=== PATIENT | male | born 1935 | race Caucasian/White ===

== ENCOUNTER 2019-03-11 11:44 | Observation (INO) | payer OTHER ==
--- NOTE | 2019-03-11 13:06 | RAD REPORT ---
EXAM DESCRIPTION: Jazmyn Single View03/11/2019 12:58 pm CLINICAL HISTORY: Shortness of breath COMPARISON: None FINDINGS: Small to moderate bilateral pleural effusions with bibasilar atelectasis Mild interstitial lung opacities The heart is mildly enlarged. Pacemaker leads are in place. IMPRESSION: Mild CHF
[2019-03-11] MEDS ORDERED: IPRATROPIUM BROM 0.5MG/2.5ML ONE (13:11)
[2019-03-11] MEDS ORDERED: LEVALBUTEROL 1.25 MG/3 ML NEB ONE (13:11)
[2019-03-11 13:22] LABS: Absolute Lymphocytes (CBC) 1.1 K/uL (0.7-4.9); Basophils % 0.8 % (0-1.3); Hematocrit 30.4 % (39.6-49.0); Lymphocytes % 14.8 % (15.3-44.8); MPV 8.3 fL (7.6-11.3); RBC Red Blood Cell Count 3.26 M/uL (4.33-5.43)
--- NOTE | 2019-03-11 13:29 | ER ---
Nurse's Notes [facility] Name: Catrachito Blanco Age: 83 yrs Sex: Male : 1935 Arrival Date: 03/11/2019 Time: 11:46 Bed 7 Private MD: Yanira Jasso Diagnosis: Dyspnea;End stage renal disease-on HD M,W,F;Unspecified combined systolic (congestive) and diastolic (congestive) heart failure;Type 2 diabetes mellitus;Obesity, unspecified Presentation: 03/11 11:53 Presenting complaint: Patient states: Trouble breathing for more than a month, had jl7 dialysis this morning and felt increased work of breathing. Reports feeling better right now than he did when he got out of dialysis 30 minutes ago. Went by Urgent Care but they wouldn't see him. Transition of care: patient was not received from another setting of care. Onset of symptoms was January 2019. Risk Assessment: Do you want to hurt yourself or someone else? Patient reports no desire to harm self or others. Initial Sepsis Screen: Does the patient meet any 2 criteria? RR > 20 per min. No. Patient's initial sepsis screen is negative. Does the patient have a suspected source of infection? No. Patient's initial sepsis screen is negative. Care prior to arrival: None. 11:53 Method Of Arrival: Wheelchair [facility] 11:53 Acuity: CHARU 2 jl7 Triage Assessment: 12:01 General: Appears in no apparent distress. uncomfortable, obese, Behavior is calm, jl7 cooperative, appropriate for age. Pain: Denies pain. Respiratory: Reports shortness of breath on exertion Airway is patent Respiratory effort is even, unlabored, Respiratory pattern is regular, symmetrical, Onset: The symptoms/episode began/occurred at an unknown time. the patient has mild shortness of breath. Historical: - Allergies: 12:01 PENICILLINS; jl7 12:01 Adhesives; jl7 - Home Meds: 12:01 terazosin 10 mg oral cap [Active]; fosrenal [Active]; clopidogrel 75 mg oral tab 1 tab jl7 once daily [Active]; gabapentin 300 mg oral cap [Active]; latanoprost ophthalmic ophthalmic [Active]; pioglitazone 15 mg oral tab 1 tab [Active]; - PMHx: 12:01 Dialysis; Diabetes - NIDDM; ESRD; Hypertension; Depression; renal cell carcinoma 7 - PSHx: 12:01 cardiac stents; nephrectomy; - Immunization history:: Adult Immunizations up to date. - Social history:: Smoking status: Patient/guardian denies using tobacco. - Ebola Screening: : No symptoms or risks identified at this time. - Family history:: not pertinent. Screenin:20 Abuse screen: Denies threats or abuse. Denies injuries from another. Nutritional ph screening: No deficits noted. Tuberculosis screening: No symptoms or risk factors identified. Fall Risk None identified. Assessment: 12:18 General: Appears in no apparent distress. uncomfortable, obese, well groomed, Behavior ph is calm, cooperative, appropriate for age, Denies fever. Pain: Denies pain. Neuro: Level of Consciousness is awake, alert, obeys commands, Oriented to person, place, time, situation. Cardiovascular: Reports fatigue, shortness of breath, Denies chest pain, lightheadedness, nausea, palpitations, vomiting, Capillary refill < 3 seconds in bilateral fingers Patient's skin is warm and dry. Rhythm is Dialysis shunt: in the left bicep, with palpable thrill, with auscultated bruit, with no erythema, with no edema, no bleeding noted. Respiratory: Reports shortness of breath at rest on exertion cough that is productive, Airway is patent Respiratory effort is even, Respiratory pattern is tachypnea. GI: Patient currently denies abdominal pain, diarrhea, nausea, vomiting. Derm: Skin is intact, Skin is pink, warm \T\ dry. Musculoskeletal: Circulation, motion, and sensation intact. Range of motion: intact in all extremities. 13:30 Reassessment: Patient appears in no apparent distress at this time. Patient and/or ph family updated on plan of care and expected duration. Pain level reassessed. Patient is alert, oriented x 3, equal unlabored respirations, skin warm/dry/pink. 15:56 Reassessment: Pt taken for US via stretcher. ph Vital Signs: 12:01 BP 157 / 66; Pulse 75; Resp 19 S; Temp 97.9(O); Pulse Ox 99% on R/A; Pain 0/10; jl7 13:00 BP 147 / 76; Pulse 72; Resp 20; Pulse Ox 98% on R/A; ph 14:00 ph 14:51 BP 151 / 89; Pulse 72; Resp 16; Temp 97.6; Pulse Ox 99% on R/A; ph 14:00 pt in radiology ph ED Course: 11:46 Patient arrived in ED. as 11:48 Yanira Jasso MD is Private Physician. as 11:56 Triage completed. jl7 12:01 Arm band placed on right wrist. jl7 12:06 Marcela Fortune RN is Primary Nurse. ph 12:12 Nestor Santiago MD is Attending Physician. chaitanya 12:20 Patient has correct armband on for positive identification. Placed in gown. Bed in low ph position. Call light in reach. Side rails up X2. playground monitor on. Pulse ox on. NIBP on. Door closed. Noise minimized. Warm blanket given. Head of bed elevated. 13:04 XRAY Chest (1 view) In Process Unspecified. EDMS 13:11 Inserted saline lock: 22 gauge in right antecubital area, using aseptic technique. ms Missed attempt(s): 22 gauge in right forearm. Bleeding controlled, band aid applied, catheter tip intact. 13:11 Initial lab(s) drawn, by ky, sent to lab. First set of blood cultures drawn. ms 13:24 Wang Faust MD is Hospitalizing Provider. chaitanya 13:39 US Extremity Venous W Compression Mikey In Process Unspecified. EDMS 14:43 EKG done, by certified pest control technician. reviewed by Nestor Santiago MD. at1 14:51 No provider procedures requiring assistance completed. Patient admitted, IV remains in ph place. Administered Medications: 13:24 Not Given (Duplicate Order): NS 0.9% 1000 ml IV at 75 ml/hr continuous chaitanya 14:50 Drug: Xopenex 1.25 mg Route: Inhalation; ph 15:00 Follow up: Response: No adverse reaction ph 14:50 Drug: AtroVENT Aerosol 0.5 mg Route: Inhalation; ph 15:00 Follow up: Response: No adverse reaction ph Outcome: 13:28 Decision to Hospitalize by Provider. chaitanya 15:41 Patient left the ED. ph 15:41 Admitted to Tele accompanied by tech, family with patient, via wheelchair, room 403, ph with chart, Report called to ALFREDO Gale 15:41 Condition: stable 15:41 Instructed on the need for admit. Signatures: Dispatcher [employer] EDMS Nestor Santiago MD MD chaitanya Mark, Tiffanie as Sanabria, Raquel ms Yun Cramer, manager agency EKG Tat1 Marcela Fortune, RN RN ph Madeline Goodman RN RN jl7 Corrections: (The following items were deleted from the chart) 13:15 13:14 Inserted saline lock: 22 gauge in right antecubital area, using aseptic ms technique. ms 13:15 13:14 Missed attempt(s): 22 gauge in right forearm. Bleeding controlled, band aid ms applied, catheter tip intact. ms
--- NOTE | 2019-03-11 13:29 | EDPHYS ---
Physician Documentation [facility] [place], [place] Name: Catrachito Blanco Age: 83 yrs Sex: Male : 1935 Arrival Date: 03/11/2019 Time: 11:46 Bed 7 Private MD: Yanira Jasso ED Physician Nestor Santiago HPI: 03/11 12:43 This 83 yrs old Male presents to ER via Wheelchair with complaints of chaitanya Breathing Difficulty, Weakness, Back Pain. 12:43 The patient has shortness of breath at rest, with light activity. Onset: The chaitanya symptoms/episode began/occurred 21 day(s) ago. Duration: The symptoms are continuous, and are steadily getting worse. The patient's shortness of breath has no apparent modifying factors. Associated signs and symptoms: The patient has no apparent associated signs or symptoms. Severity of symptoms: At their worst the symptoms were mild moderate in the emergency department the symptoms are unchanged. The patient has not experienced similar symptoms in the past. Historical: - Allergies: 12:01 PENICILLINS; jl7 12:01 Adhesives; jl7 - Home Meds: 12:01 terazosin 10 mg oral cap [Active]; fosrenal [Active]; clopidogrel 75 mg oral tab 1 tab jl7 once daily [Active]; gabapentin 300 mg oral cap [Active]; latanoprost ophthalmic ophthalmic [Active]; pioglitazone 15 mg oral tab 1 tab [Active]; - PMHx: 12:01 Dialysis; Diabetes - NIDDM; ESRD; Hypertension; Depression; renal cell carcinoma jl7 - PSHx: 12:01 cardiac stents; nephrectomy; jl7 - Immunization history:: Adult Immunizations up to date. - Social history:: Smoking status: Patient/guardian denies using tobacco. - Ebola Screening: : No symptoms or risks identified at this time. - Family history:: not pertinent. ROS: 12:43 Constitutional: Negative for fever, chills, and weight loss, Eyes: Negative for injury, chaitanya pain, redness, and discharge, ENT: Negative for injury, pain, and discharge, Neck: Negative for injury, pain, and swelling, Cardiovascular: Negative for chest pain, palpitations, and edema, Abdomen/GI: Negative for abdominal pain, nausea, vomiting, diarrhea, and constipation, Back: Negative for injury and pain, : Negative for injury, bleeding, discharge, and swelling, MS/Extremity: Negative for injury and deformity, Skin: Negative for injury, rash, and discoloration, Psych: Negative for depression, anxiety, suicide ideation, homicidal ideation, and hallucinations, Allergy/Immunology: Negative for hives, rash, and allergies, Endocrine: Negative for neck swelling, polydipsia, polyuria, polyphagia, and marked weight changes, Hematologic/Lymphatic: Negative for swollen nodes, abnormal bleeding, and unusual bruising. 12:43 Respiratory: Positive for cough, shortness of breath. 12:43 MS/extremity: Positive for pain. Exam: 12:43 Constitutional: This is a well developed, well nourished patient who is awake, alert, chaitanya and in no acute distress. Head/Face: Normocephalic, atraumatic. Eyes: Pupils equal round and reactive to light, extra-ocular motions intact. Lids and lashes normal. Conjunctiva and sclera are non-icteric and not injected. Cornea within normal limits. Periorbital areas with no swelling, redness, or edema. ENT: Nares patent. No nasal discharge, no septal abnormalities noted. Tympanic membranes are normal and external auditory canals are clear. Oropharynx with no redness, swelling, or masses, exudates, or evidence of obstruction, uvula midline. Mucous membranes moist. Neck: Trachea midline, no thyromegaly or masses palpated, and no cervical lymphadenopathy. Supple, full range of motion without nuchal rigidity, or vertebral point tenderness. No Meningismus. Chest/axilla: Normal chest wall appearance and motion. Nontender with no deformity. No lesions are appreciated. Cardiovascular: Regular rate and rhythm with a normal S1 and S2. No gallops, murmurs, or rubs. Normal PMI, no JVD. No pulse deficits. Respiratory: Lungs have equal breath sounds bilaterally, clear to auscultation and percussion. No rales, rhonchi or wheezes noted. No increased work of breathing, no retractions or nasal flaring. Abdomen/GI: Soft, non-tender, with normal bowel sounds. No distension or tympany. No guarding or rebound. No evidence of tenderness throughout. Back: No spinal tenderness. No costovertebral tenderness. Full range of motion. Male : Normal genitalia with no discharge or lesions. MS/ Extremity: Pulses equal, no cyanosis. Neurovascular intact. Full, normal range of motion. Neuro: Awake and alert, GCS 15, oriented to person, place, time, and situation. Cranial nerves II-XII grossly intact. Motor strength 5/5 in all extremities. Sensory grossly intact. Cerebellar exam normal. Normal gait. Psych: Awake, alert, with orientation to person, place and time. Behavior, mood, and affect are within normal limits. 12:43 Skin: Appearance: Color: pale. Vital Signs: 12:01 BP 157 / 66; Pulse 75; Resp 19 S; Temp 97.9(O); Pulse Ox 99% on R/A; Pain 0/10; jl7 13:00 BP 147 / 76; Pulse 72; Resp 20; Pulse Ox 98% on R/A; ph 14:00 ph 14:51 BP 151 / 89; Pulse 72; Resp 16; Temp 97.6; Pulse Ox 99% on R/A; ph 14:00 pt in radiology ph MDM: 12:12 Patient medically screened. [facility] 12:47 Data reviewed: vital signs, nurses notes, lab test result(s), EKG, radiologic studies, chaitanya doppler, plain films. 12 12:43 Order name: Basic Metabolic Panel [facility] 03/11 12:43 Order name: CBC with Diff [facility] 03/11 12:43 Order name: LFT's [facility] 03/11 12:43 Order name: Magnesium [facility] 03/11 12:43 Order name: NT PRO-BNP [facility] 03/11 12:43 Order name: PT-INR [facility] 03/11 12:43 Order name: Troponin (emerg Dept Use Only) [facility] 03/11 12:43 Order name: XRAY Chest (1 view); Complete Time: 13:23 [facility] 03/11 12:43 Order name: EKG; Complete Time: 12:44 [facility] 03/11 12:43 Order name: Blood Culture Adult (2) [facility] 03/11 12:43 Order name: US Extremity Venous W Compression Mikey [facility] 03/11 12:43 Order name: Cardiac monitoring; Complete Time: 12:54 [facility] 03/11 12:43 Order name: EKG - Nurse/Tech; Complete Time: 14:51 [facility] 03/11 12:43 Order name: IV Saline Lock; Complete Time: 13:14 [facility] 03/11 12:43 Order name: Labs collected and sent; Complete Time: 13:14 [facility] 03/11 12:43 Order name: O2 Per Protocol; Complete Time: 12:54 [facility] 03/11 12:43 Order name: O2 Sat Monitoring; Complete Time: 12:54 [facility] 03/11 14:13 Order name: Diet Ada 1800 Josh; Complete Time: 14:14 ms 03/11 14:20 Order name: CONS Physician Consult EDMS Administered Medications: 13:24 Not Given (Duplicate Order): NS 0.9% 1000 ml IV at 75 ml/hr continuous chaitanya 14:50 Drug: Xopenex 1.25 mg Route: Inhalation; ph 15:00 Follow up: Response: No adverse reaction ph 14:50 Drug: AtroVENT Aerosol 0.5 mg Route: Inhalation; ph 15:00 Follow up: Response: No adverse reaction ph Disposition: 03/11/19 13:28 Hospitalization ordered by Wang Faust for Inpatient Admission. Preliminary diagnosis are Dyspnea, End stage renal disease - on HD M,W,F, Unspecified combined systolic (congestive) and diastolic (congestive) heart failure, Type 2 diabetes mellitus, Obesity, unspecified. - Bed requested for Telemetry/MedSurg (Inpatient). - Status is Inpatient Admission. ph - Condition is Stable. - Problem is new. - Symptoms have improved. UTI on Admission? No Signatures: Dispatcher [employer] EDNestor Long MD MD cha Smirch, Shelby RN RN ss Marcela Fortune RN RN ph Madeline Goodman RN RN jl7 Corrections: (The following items were deleted from the chart) 14:42 13:28 Hospitalization Ordered by Wang Faust MD for Inpatient Admission. Preliminary ss diagnosis is Dyspnea; End stage renal disease - on HD M,W,F; Unspecified combined systolic (congestive) and diastolic (congestive) heart failure; Type 2 diabetes mellitus; Obesity, unspecified. Bed requested for Telemetry/MedSurg (Inpatient). Status is Inpatient Admission. Condition is Stable. Problem is new. Symptoms have improved. UTI on Admission? No. chaitanya 15:41 14:42 03/11/2019 13:28 Hospitalization Ordered by Wang Faust MD for Inpatient ph Admission. Preliminary diagnosis is Dyspnea; End stage renal disease - on HD M,W,F; Unspecified combined systolic (congestive) and diastolic (congestive) heart failure; Type 2 diabetes mellitus; Obesity, unspecified. Bed requested for Telemetry/MedSurg (Inpatient). Status is Inpatient Admission. Condition is Stable. Problem is new. Symptoms have improved. UTI on Admission? No. ss
[2019-03-11 13:37] LABS: Protime INR 1.04
--- NOTE | 2019-03-11 13:42 | RAD REPORT ---
EXAM DESCRIPTION: USExtrem Venous W Compress Bil03/11/2019 1:37 pm CLINICAL HISTORY: Leg pain COMPARISON: none FINDINGS: The common femoral, superficial femoral, popliteal and posterior tibial veins bilaterally are compressible and demonstrate augmentation. Doppler demonstrates good flow. 2 centimeter right Wu's cyst IMPRESSION: No evidence of deep venous thrombosis involving either lower extremity. 2 centimeter right Wu's cyst
[2019-03-11 13:56] LABS: Albumin 3.2 g/dL (3.4-5.0); Bilirubin Direct 0.2 mg/dL (0-0.2); Bilirubin Total 0.5 mg/dL (0.2-1.0); Magnesium 2.2 mg/dL (1.8-2.4); Potassium 3.4 mmol/L (3.5-5.1); Protein, Total 7.2 g/dL (6.4-8.2); Troponin (Emerg Dept Use Only) 0.15 ng/mL (0.0-0.045)
--- NOTE | 2019-03-11 15:31 | EKG ---
Test Date: 2019-03-11 Test Time: 14:32:17 Product Manufacturing Professional: ELYSSA MEASUREMENT RESULTS: Intervals: Rate: 72 SC: QRSD: 204 QT: 510 QTc: 558 [place]: P: SC: QRS: -45 T: 117 INTERPRETIVE STATEMENTS: Ventricular-paced rhythm Abnormal ECG Compared to ECG 08/01/1991 14:41:00 Sinus rhythm no longer present Left ventricular hypertrophy no longer present Electronically Signed On 03-11-19 15:30:49 [employer]IV[employer] INVESTIGATOR by Jack Sterling
[2019-03-11] MEDS ORDERED: ONDANSETRON 4 MG/2 ML VIAL IV PRN (15:48)
[2019-03-11] MEDS ORDERED: D50W 25 GM/50 ML SYRINGE/VIAL IV PRN (15:48)
[2019-03-11] MEDS ORDERED: IPRATROPIUM BROM 0.5MG/2.5ML NEB PRN (15:48)
[2019-03-11] MEDS ORDERED: GLUCAGON 1 MG/VIAL IM PRN (15:48)
[2019-03-11] MEDS ORDERED: ALBUTEROL 2.5 MG/3 ML NEB SOL NEB PRN (15:48)
[2019-03-11] MEDS: INSULIN -REGULAR HUMAN 50 UNIT/0.5 ML ML SQ SCH ×2 (15:55→21:00)
[2019-03-11] MEDS ORDERED: FUROSEMIDE 20 MG/ 2ML VIAL IV ONE (16:00)
[2019-03-11 18:31] LABS: Urine Appearance CLEAR; Urine Bilirubin NEGATIVE (NEG); Urine Blood TRACE (NEG); Urine Color YELLOW; Urine Glucose NEGATIVE (NEG); Urine Protein 2+ (NEG); Urine Urobilinogen 0.2 mg/dL (0.2-1.0)
[2019-03-11 18:33] LABS: Urine Microscopic Reflex ORDER UMIC
[2019-03-11 18:46] LABS: Urine Bacteria 20-50 /HPF (NONE SEEN); Urine Culture Reflex Order REFLEXED; Urine Yeast PRESENT (NONE SEEN)
[2019-03-11] MEDS ORDERED: GABAPENTIN 300 MG CAP PO SCH (21:00)
[2019-03-11] MEDS: TERAZOSIN HCL 5 MG CAP PO SCH (21:40)
[2019-03-11] MEDS: HYDROCODONE/APAP 7.5/325 MG TAB PO PRN (23:50)
[2019-03-12 06:10] VITALS: BMI 5124.0
[2019-03-12 06:42] LABS: Absolute Lymphocytes (CBC) 1.2 K/uL (0.7-4.9); Basophils % 0.7 % (0-1.3); Hematocrit 29.4 % (39.6-49.0); Lymphocytes % 15.6 % (15.3-44.8); MPV 8.6 fL (7.6-11.3); RBC Red Blood Cell Count 3.13 M/uL (4.33-5.43)
[2019-03-12 07:21] LABS: Potassium 3.5 mmol/L (3.5-5.1)
[2019-03-12] MEDS: INSULIN -REGULAR HUMAN 50 UNIT/0.5 ML ML SQ SCH ×3 (07:30→16:30)
[2019-03-12] MEDS ORDERED: FLUTICASONE 50MCG NASAL SPRAY NAS SCH (09:00)
[2019-03-12] MEDS ORDERED: CLOPIDOGREL 75 MG TABLET PO SCH (09:00)
[2019-03-12] MEDS: HYDROCODONE/APAP 7.5/325 MG TAB PO PRN (09:25)
[2019-03-12] MEDS: TERAZOSIN HCL 5 MG CAP PO SCH (09:26)
--- NOTE | 2019-03-12 11:34 | P.PN ---
Subjective Date of Service: 03/12/19 Chief Complaint: Shortness of breath Subjective: Improving (Patient is doing much better he was admitted with acute shortness of breath patient is on dialysis and is compliant had 1 dialysis yesterday feels much better today no fever chills) Review of Systems Unremarkable Physical Examination - Vital Signs Temperature: 97.8 F Blood Pressure: 130/58 Pulse: 68 Respirations: 18 Pulse Ox (%): 92 - Physical Exam General: Alert, In no apparent distress, Oriented x3 Respiratory: Clear to auscultation bilaterally, Crackles/rales Cardiovascular: No edema, Normal S1 S2 - Studies Laboratory Data (last 24 hrs) 03/11/19 13:11: PT 12.2, INR 1.04 03/11/19 13:11: WBC 7.4, Hgb 10.5 L, Hct 30.4 L, Plt Count 164 03/11/19 13:11: Sodium 137, Potassium 3.4 L, BUN 23 H, Creatinine 2.66 H, Glucose 141 H, Magnesium 2.2, Total Bilirubin 0.5, AST 13 L, ALT 14, Alkaline Phosphatase 91 Assessment & Plan - Problems (Diagnosis) (1) Volume overload Current Visit: Yes Status: Acute Plan: Patient is 83 years of age with a history of chronic renal failure on dialysis admitted with acute shortness of breath he is doing much better since dialysis will plan to perform 1 more dialysis and discharge today as clinically stable vital signs are all satisfactory saturation satisfactory cultures are pending chest x-ray shows some interstitial changes consistent with volume overload Qualifiers: Hypervolemia type: unspecified Qualified Code(s): E87.70 - Fluid overload, unspecified Discharge Plan: Home
[2019-03-12 12:59] VITALS: TEMP 97.7
[2019-03-12 16:10] VITALS: O2SAT 92
[2019-03-12 16:46] VITALS: BP 126/67
--- NOTE | 2019-03-13 01:11 | CON ---
Date of Consultation: 03/12/2019 Reason For Consultation: Elevated BUN and creatinine. History Of Present Illness: This is a pleasant 83-year-old gentleman, well known to me from dialysis with significant past medical history of hypertension; end-stage renal disease, on hemodialysis, Thu, Thursday, Thursday. Patient apparently had dialyzed Thursday, after dialysis started having shortn ess of breath, who was brought to the emergency room, found to have over volume. Patient was given a nother session of dialysis, managed to remove 2.5 L and we took the patient for another session of di alysis today goaling for 3 L. The patient's blood pressure has been stable. The patient's dry weigh t in the dialysis unit 122, currently predialysis 119. The patient is feeling much better. Past Medical History: Include 1.Hypertension. 2.Congestive heart failure. 3.End-stage renal disease. Allergies: TO ADHESIVE TAPE, PENICILLIN. Social History: Denies smoking, denies drinking, denies drug abuse. Past Surgical History: AV fistula creation. Review of Systems: Head and Neck: No red eye. No ear pain. GI: No nausea, no vomiting. : No polyuria, no dysuria, no hematuria. Vasc Tech: Not applicable. Respiratory: Has shortness of breath. Cardiovascular: Has orthopnea. Endocrine: No polydipsia. Skin: No rash. Neuro: Has neuropathy. Musculoskeletal: Low back pain. Medications: Home medications include terazosin, Actos, hydrocodone, gabapentin, and Plavix. Curren t medications in the hospital include breathing treatment, Plavix, gabapentin, terazosin. Physical Examination: Vital Signs: When I saw the patient, blood pressure 138/77, pulse of 88. Chest: Crackles bilateral base. Heart: S1, S2, systolic murmur. Abdomen: Soft, nontender. Extremities: Trace edema. Neurological: Oriented x3, no focal. Laboratory Data: WBC 7.4, H and H 10.1/29.4, platelets 165. Sodium 140, potassium 3.5, bicarb 30, B UN 23, creatinine 3, calcium 9.2. BNP 52,000. Assessment And Plan: 1.End-stage renal disease with over volume. We will challenge the patient again. We will adjust th e patient dry weight as outpatient. 2.Hypokalemia. Patient is going to be dialyzed on high potassium bath. 3.Congestive heart failure, diastolic dysfunction. Patient is going to be challenge. 4.Hypertension. We will utilize the blood pressure for ultrafiltration. 5.Anemia of chronic kidney disease. Continue ARIC as outpatient. Patient cleared from the renal melonie [facility] for discharge planning. CORBY Voice ID: [id number] Report ID: [id number]
--- NOTE | 2019-03-13 02:06 | P.HP ---
Certification for Inpatient Patient admitted to: Observation With expected LOS: <2 Midnights Patient will require the following post-hospital care: None Practitioner: I am a practitioner with admitting privileges, knowledge of patient current condition, hospital course, and medical plan of care. Services: Services provided to patient in accordance with Admission requirements found in Title 42 Section 412.3 of the Code of Federal Regulations Patient History Date of Service: 03/13/19 Primary Care Provider: PCP Reason for admission: Shortness of breath History of Present Illness: Patient came to ED today after having increase in Shortness. History of ESRD and CHF. Stated that he has had on/off shortness of breath for about 1 month but has become much worse recently. Today could no longer tolerate it. Patient was seen and evaluated in the ED. Found to have increase vascular changes on CXR with elevated troponin Allergies adhesive tape Allergy (Verified 03/11/19 15:45) Hives/Rash Penicillins Allergy (Verified 03/11/19 15:45) Itching/Hives/Rash Home medications list reviewed: Yes Home Medications: Clopidogrel Bisulfate [Plavix*] 75 mg PO DAILY 03/11/19 Gabapentin [Neurontin*] 300 mg PO DAILY 03/11/19 Hydrocodone Bit/Acetaminophen [Hydrocodon-Acetaminoph 7.5-325] 1 tab PO Q8HP PRN 03/11/19 Latanoprost/Pf [Latanoprost 0.005% Eye Drop] 1 drop EACH EYE BEDTIME 03/11/19 Pioglitazone [Actos*] 1 tab PO SEECOM 03/11/19 Terazosin HCl 10 mg PO BID 03/11/19 - Past Medical/Surgical History Has patient received pneumonia vaccine in the past: Yes Diabetic: Yes -: Arthritis -: Anemia -: Diabetes-NIDDM -: HTN -: HD-MWF -: Depression -: Sleep Apnes- CPAP@home -: OR in 2012 with 2 stents -: Pacemaker -: Left Nephrectomy -: Cardiac stents x2 -: ORIF of the Right akkle -: cardiac cath x2 -: Dialysis Graft placement in the Left upper arm - Family History Mother -: Heart disease, Hypertension, Diabetes, Stroke, Other (see notes) Notes: OR Father -: Heart disease, Hypertension - Social History Smoking Status: Never smoker Alcohol use: No CD- Drugs: No Caffeine use: Yes Place of Residence: Home Review of Systems General: Unremarkable Eyes: Unremarkable ENT: Unremarkable Respiratory: Shortness of Breath, SOB with Excertion Cardiovascular: Unremarkable Gastrointestinal: Unremarkable Musculoskeletal: Unremarkable Integumentary: Unremarkable Neurological: Unremarkable Lymphatics: Unremarkable Physical Examination - Vital Signs Temperature: 97.7 F Blood Pressure: 126/67 Pulse: 64 Respirations: 16 Pulse Ox (%): 93 - Physical Exam General: Alert, In no apparent distress, Oriented x3 HEENT: Normocephalic, PERRLA, Mucous membr. moist/pink, EOMI Neck: Supple, 2+ carotid pulse no bruit, JVD not distended, No Thyromegaly, No LAD Respiratory: Crackles/rales (bilateral lower lobes ) Cardiovascular: Normal pulses, Regular rate/rhythm, Normal S1 S2, Edema, Systolic murmur Gastrointestinal: Normal bowel sounds, Soft and benign, Non-distended, No tenderness Musculoskeletal: No clubbing, No swelling, No contractures, No erythema, No tenderness, No warmth Integumentary: No rashes, No breakdown, No significant lesion, No tenderness/ swelling, No erythema, No warmth, No cyanosis Neurological: Normal speech, Normal strength at 5/5 x4 extr, Normal tone, Sensation intact, Cranial nerves 3-12 intact, Normal reflexes 2+, Normal affect Assessment and Plan - Problems (Diagnosis) (1) Congestive heart failure (CHF) Status: Acute (2) End stage renal disease Status: Acute (3) Elevated troponin Status: Acute - Plan Patient will be admitted for observation and kept on oxygen. Nephrology was consulted and agreed that since patient can still urinate, that we will diurese him one time and see how he does. Patient will be monitored. HD will be completed if needed. Otherwise will check chemistries and troponin throughout the night. If stable and feeling better will d/c home tomorrow Discharge Plan: Home Plan to discharge in: 24 Hours - Advance Directives Does patient have a Living Will: No Does patient have a Durable POA for Healthcare: No - Code Status/Comfort Care Code Status Assessed: No Critical Care: No Time Spent Managing Pts Care (In Minutes): 30
--- NOTE | 2019-03-13 15:55 | P.DS ---
Admission Date: 03/11/19 Discharge Date: 03/13/19 Primary Care Provider: PCP Disposition: ROUTINE DISCHARGE Discharge Condition: GOOD Reason for Admission: Shortness of breath - Problems (1) Volume overload Status: Acute Qualifiers: Hypervolemia type: unspecified Qualified Code(s): E87.70 - Fluid overload, unspecified Brief History of Present Illness: Patient is 83 years of age dialysis patient is admitted with acute shortness of breath volume overload Hospital Course: Patient was dialyzed and felt well in fact he underwent dialysis x2 was stable at the time of discharge he was alert oriented responsive cooperative vital signs all stable chest clear cardiovascular system os sounds normal see my progress note saturation satisfactory patient was discharge nephrology consultation chest x-ray consistent with volume overload Vital Signs/Physical Exam: Temp Pulse Resp BP Pulse Ox 97.7 F 64 16 126/67 93 03/13/19 02:06 03/13/19 02:06 03/13/19 02:06 03/13/19 02:06 03/13/19 02:06 Laboratory Data at Discharge: WBC 7.4 K/uL (4.3-10.9) 03/12/19 05:54 Hgb 10.1 g/dL (13.6-17.9) L 03/12/19 05:54 Hct 29.4 % (39.6-49.0) L 03/12/19 05:54 Plt Count 165 K/uL (152-406) 03/12/19 05:54 PT 12.2 SECONDS (9.5-12.5) 03/11/19 13:11 INR 1.04 03/11/19 13:11 Sodium 140 mmol/L (136-145) 03/12/19 05:54 Potassium 3.5 mmol/L (3.5-5.1) 03/12/19 05:54 BUN 23 mg/dL (7-18) H 03/12/19 05:54 Creatinine 3.09 mg/dL (0.55-1.3) H 03/12/19 05:54 Glucose 142 mg/dL (74-106) H 03/12/19 05:54 Magnesium 2.2 mg/dL (1.8-2.4) 03/11/19 13:11 Total Bilirubin 0.5 mg/dL (0.2-1.0) 03/11/19 13:11 AST 13 U/L (15-37) L 03/11/19 13:11 ALT 14 U/L (12-78) 03/11/19 13:11 Alkaline Phosphatase 91 U/L (45-117) 03/11/19 13:11 Troponin I 0.12 ng/mL (0.0-0.045) H 03/11/19 20:58 Home Medications: Clopidogrel Bisulfate [Plavix*] 75 mg PO DAILY 03/11/19 Gabapentin [Neurontin*] 300 mg PO DAILY 03/11/19 Hydrocodone Bit/Acetaminophen [Hydrocodon-Acetaminoph 7.5-325] 1 tab PO Q8HP PRN 03/11/19 Latanoprost/Pf [Latanoprost 0.005% Eye Drop] 1 drop EACH EYE BEDTIME 03/11/19 Pioglitazone [Actos*] 1 tab PO SEECOM 03/11/19 Terazosin HCl 10 mg PO BID 03/11/19 Diet: Renal Activity: Ad eric Followup: Jen Davenport MD [ACTIVE - CAN ADMIT] - 1-2 Weeks (customs investigator- call to schedule an appointment ) Aris Ash MD [ACTIVE - CAN ADMIT] - 1 Week (Primary care physician- call to schedule an appointment )
[2019-03-16 06:00] LABS: HBsAG Nonreactive (Nonreactive)
== END 2019-03-12 17:30 | disposition home or self-care (01) ==
LOC: ER 11:44 → ERHOLD 14:17 → 4TH 15:25
PROVIDERS: ADMIT Family Medicine; ATTEND Family Medicine
DX: I13.2 Hypertensive heart and chronic kidney disease with heart failure and with stage 5 chronic kidney disease, or end stage renal disease (principal); E11.22 Type 2 diabetes mellitus with diabetic chronic kidney disease; N18.6 End stage renal disease; I50.32 Chronic diastolic (congestive) heart failure; E87.70 Fluid overload, unspecified; E87.6 Hypokalemia; D63.1 Anemia in chronic kidney disease; I25.2 Old myocardial infarction; Z95.0 Presence of cardiac pacemaker; Z95.5 Presence of coronary angioplasty implant and graft; Z88.0 Allergy status to penicillin; E86.1 Hypovolemia
CPT/HCPCS: 93005; 87040 ×2; 87088; 85025 ×2; 87086; 80048 ×2; 36415; 83735; 85610; 82947 ×5; 80076; 84484 ×3; 86317; 83880 ×2; 87340; 86706; 71045; 90935 ×2; 93970; 94640; 99285; J1940; G0378 ×3; 81003; 81015

== ENCOUNTER 2019-12-06 08:25 | Day surgery (SDC) | payer OTHER ==
--- OUTSIDE RECORDS SUMMARY | 2019-12-06 08:29 | XMS REPORT | Continuity of Care Document ---
:1935 Author Organization [facility] t Address [address] [place] [address] Care Team Providers Name Role Phone Jose CHRISTIAN, Jeffrey Primary Care Physician Jdaa CHRISTIAN, T. Attending Clinician Boby CHRISTIAN V. Attending Clinician Edmund ZAYAS Attending Clinician Amado CHRISTIAN, Jake Attending Clinician Jeffrey Garcia MD Attending Clinician Jose A CAIN Attending Clinician Linda Soler MD Attending Clinician Alex Attending Clinician Unavailable Reyes CHRISTIAN, Tomasa Garcia Attending Clinician [phone] Rupert CHRISTIAN, PFredrick Attending Clinician Jose Anderson MD Attending Clinician JADA Admitting Clinician Unavailable RUPERT Admitting Clinician Unavailable Payers Payer Name Policy Type Policy Number Effective Date Expiration Source Date HUMANA xxxxxxxxx 2017 [place] MEDICAREHUMANA 00:00:00 [facility] MEDICARE PPO/PFFS/ERS [id number] Problems Condition Condition Condition Status Onset Resolution Last Treating Co mments Source Name Details Category Date Date Treatment Clinician Date 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 [facility] renal renal 00:00: st disease) disease) 00 on on dialysis dialysis 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, occlusion, 00:00: st left left 00 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 2-12 [facility] dialysis dialysis 00:00: st AV graft AV graft 00 AV fistula AV fistula Disease Active 2019 [place] infection infection 6-07 Meth alyson 00:00: st 00 Arterioven Arterioven Disease Active [place] ous ous 8-20 [facility] fistula fistula 00:00: st occlusion occlusion 00 Allergies, Adverse Reactions, Alerts Allergy Allergy Status Severity Reaction(s) Onset Inactive Treating Comm ents Source Name Type Date Date Clinician Latex Propensi Active Hives Blisterin [place] ty to 2-12 g [facility] adverse 00:00: st reaction 00 s to drug Adhesive Propensi Active Itching, blisters [place] Tape-Nellie ty to Other (See 6-17 Meth alyson icones adverse Comments) 00:00: st reaction 00 s to drug Penicill Propensi Active Itching, [place] ins ty to Swelling 8-20 [facility] adverse 00:00: st reaction 00 s to drug Family History Family Member Diagnosis Comments Start Date Stop Date Source Natural father Depression [facility]odist Natural father Heart disease [place] [facility] Natural father Hy[facility] Natural mother Diabetes [facility] Natural mother Heart attack [place] [facility] Natural mother Heart disease [place] [facility] Natural mother [facility]ension [facility] Social History Social Habit Start Date Stop Date Quantity Comments Source Sex Assigned At [facility] ethodist Alcohol intake 2019-09-09 2019-09-09 [facility] 00:00:00 non-drinker of alcohol (finding) Smoking Status Start Date Stop Date Source Never smoker [facility] Medications Ordered Filled Start Stop Current Ordering Indication Dosage Frequency Signature Comments Components Source Medication Medication Date Date Medication? Clinician (SIG) Name Name terazosin Yes 10mg Q.5D Take 10 mg [place] (HYTRIN) 10 6-11 by mouth 2 Me thodi MG capsule 17:30: (two) st 43 times a day. gabapentin 2020-0 Yes 300mg QD Take 300 [place] (NEURONTIN) 6-11 mg by [facility] 300 mg 17:30: mouth st capsule 43 daily. lanthanum 2020-0 Yes 1000mg Q.[id number] Chew 1,000 [place] (FOSRENOL) 6-11 [id number] mg 3 Met hodi 1000 MG 17:30: 3D (three) st chewable 43 times a tablet day with meals. pioglitazon 2020-0 Yes 15mg QD Take 15 mg [place] e (ACTOS) 6-11 by mouth Method i 15 MG 17:30: daily. st tablet 43 latanoprost 2020-0 Yes 1[drp] QD Administer [place] (XALATAN) 6-11 1 drop to Metho di 0.005 % 17:30: both eyes st ophthalmic 43 nightly. solution clopidogreL 2020-0 Yes 75mg QD Take 75 mg [place] (PLAVIX) 75 6-11 by mouth Meth alyson mg tablet 17:30: daily. st 43 albuterol 2020-0 Yes 2{puff} Q6H Inhale 2 [place] (PROAIR 6-11 puffs Methodi HFA) 90 17:30: every 6 st mcg/actuati 43 (six) on inhaler hours as needed for wheezing. polyethylen 2020-0 Yes 17g QD Take 17 g [place] e glycol 6-11 by mouth Method[facility] (MIRALAX) 17:30: daily. st 17 gram 43 packet ascorbic 2020-0 Yes 500mg QD Take 500 [place] acid, 6-11 mg by [facility] vitamin C, 17:30: mouth st (VITAMIN C) 43 daily. 500 MG tablet acetaminoph 2020-0 Yes 500mg Q.[id number] Take 500 [place] en 6-11 [id number] mg by [facility] (TYLENOL) 17:30: 3D mouth 3 st 500 MG 43 (three) tablet times a day as needed for mild pain (FOR BACK AND HIP PAIN). Saccharomyc 2020-0 Yes 250mg QD Take 250 [place] es 6-11 mg by Methodi boulardii 17:30: mouth st (FLORASTOR) 43 daily. 250 mg capsule diphenhydrA 2020-0 Yes 25mg Q6H Take 25 mg [facility] MINE 09-07 by mouth Method[facility] (BenadryL) 17:30: every 6 st 25 mg 43 (six) capsule hours as needed for itching. cholecalcif 2019-0 Yes QD Take by Kadie guy xenia, 09-07 mouth Methodi vitamin D3, 17:30: daily. st (VITAMIN D3 43 ORAL) acetaminoph 2019- 2020- No acute pain 1{tbl} Q4H Take 1 [place] en-codeine 09-0718 tablet by Met ac (TYLENOL 00:00: 23:[address] WITH 00 :00 every 4 CODEINE #3) (four) 300-30 mg hours as per tablet needed for moderate pain for up to 7 days .acute pain. traMADol-ac 2020- No acute pain 1{tbl} QD Take 1 [place] etaminophen 08-31 tablet by Me chilel (ULTRACET) 12:17: 00:[address] 37.5-325 mg 06 :00 nightly per tablet .acute pain. calcium 2019- 2020- No 1{tbl} Q.5D Take 1 [place] citrate-vit 08-31 tablet by Me chilel fried D3 12:15: 00:[address] (CITRACAL+D 31 :00 (two) ) 315-200 times a mg-unit per day. tablet vancomycin 2019-0 2020- No 1000mg Q.07540444 Infuse [place] 1,000 mg in 4-12 07-29 [id number] 1,000 mg Methodi sodium 00:00: 23:[address] chloride 00 :00 venous 0.9% 250 mL catheter 3 IVPB (three) times a week for 14 days. aspirin 2019-0 2020- No 81mg QD Take 81 mg Kadie guy (ECOTRIN) 05-1112 by mouth Metho di 81 MG 17:08: 00:[address] enteric 32 :00 coated tablet Vital Signs Vital Name Observation Time Observation Value Comments Source Systolic blood 2019-09-08 17:15:00 135 mm[Hg] [place] [facility] pressure Diastolic blood 2019-09-08 17:15:00 65 mm[Hg] [place] [facility] pressure Heart rate 2019-09-08 17:15:00 67 /min [place] [facility] Respiratory rate 2019-09-08 17:15:00 16 /min David Duarte Oxygen saturation in 2019-09-08 17:15:00 96 /min Dell Duarte Arterial blood by Pulse oximetry Body temperature 2019-09-08 16:30:00 36.22 Marilee David Duarte Body height 2019-09-08 09:59:00 182.9 cm Dell Duarte Body weight 2019-09-08 09:59:00 112.038 kg Dell Duarte BMI 2019-09-08 09:59:00 33.50 kg/m2 Dell Duarte Procedures Procedure Date / Time Performing Clinician Source Performed [place] AN ELECTIVE 2019-09-09 12:10:59 Hina Landis SUPRAGLOTTIC AIRWAY POC GLUCOSE 2019-09-08 15:19:00 Omega Elias OR FL < 1 HOUR 2019-09-08 15:05:17 Omega Elias POC PANEL 4 2019-09-08 10:11:00 Omega Elias COMPREHENSIVE METABOLIC 2019-09-08 10:07:00 Omega Elias PANEL ESTIMATED GFR 2019-09-08 10:07:00 Omega Elias XR CHEST 2 VW 2019-09-01 14:20:51 Dell Fischer ECG PRE/POST OP 2019-09-01 13:14:13 Dell Fischer COVID-19 QUALITATIVE PCR 2019-09-01 12:41:00 Kadie Fischer HC COMPLETE BLD COUNT 2019-09-01 12:41:00 Omega Elias W/AUTO DIFF TYPE AND SCREEN 2019-09-01 12:41:00 Omega Elias PARTIAL THROMBOPLASTIN 2019-09-01 12:41:00 Omega Elias TIME (PTT) PROTHROMBIN TIME WITH INR 2019-09-01 12:41:00 Omega Elias HEMOGLOBIN A1C 2019-09-01 12:41:00 Dell Fischer HEMODIALYSIS 2019-07-12 13:25:48 IssacJen Dell Garcia odist HEPATITIS B SURFACE 2019-07-12 10:00:00 IssacJen Dell Duarte ANTIGEN HEPATITIS B SURFACE AB, 2019-07-12 10:00:00 Issac Jen David Duarte QUANTITATIVE HEMODIALYSIS 2019-07-12 09:13:48 NimaJen avelar [place] Meth odist POC GLUCOSE 2019-07-11 17:22:00 Omega Elias POC GLUCOSE 2019-07-11 15:29:00 Omega Elias SURGICAL PATHOLOGY REQUEST 2019-07-11 15:29:00 Omega Elias ANAEROBIC CULTURE 2019-07-11 15:15:00 Omega Elias AEROBIC CULTURE 2019-07-11 15:15:00 Omega Elias GRAM STAIN 2019-07-11 15:15:00 Omega Elias OR FL < 1 HOUR 2019-07-11 15:08:01 Omega Elias AEROBIC CULTURE 2019-07-11 15:08:00 Omega Elias GRAM STAIN 2019-07-11 15:08:00 Omega Elias OK AN ELECTIVE 2019-07-11 14:16:22 Rosette Naranjo ENDOTRACHEAL AIRWAY POC PANEL 4 2019-07-11 11:11:00 Omega Elias ECG 12-LEAD 2019-07-11 11:04:36 Dell Fischer TYPE AND SCREEN 2019-07-11 11:00:00 Dell Fischer BASIC METABOLIC PANEL 2019-07-11 11:00:00 Xander Fischer HC COMPLETE BLD COUNT 2019-07-11 11:00:00 Xander Fischer [facility] W/AUTO DIFF Kalpesh Joseph PROTHROMBIN TIME WITH INR 2019-07-11 11:00:00 Milton Fischer PARTIAL THROMBOPLASTIN 2019-07-11 11:00:00 Stefany Fischer [facility] TIME (PTT) Kalpesh Joseph ESTIMATED GFR 2019-07-11 11:00:00 Dell Fischer odpaz Joseph POC GLUCOSE 2019-05-13 12:03:00 Orlin Emery ethodist HEPATITIS B SURFACE 2019-05-13 08:10:00 Jen Davenport [facility] ANTIGEN HEPATITIS B SURFACE AB, 2019-05-13 08:10:00 Jen Davenport [facility] QUANTITATIVE HC COMPLETE BLD COUNT 2019-05-13 06:00:00 Ryan Soler [facility] W/AUTO DIFF Linda ANTI XA, UNFRACTIONATED 2019-05-13 06:00:00 Ryan Soler Catholic Ryder-Hsi HEMODIALYSIS 2019-05-12 22:26:09 Jen Davenport Meth odist POC GLUCOSE 2019-05-12 19:43:00 Orlin Emery ethodist OR FL < 1 HOUR 2019-05-12 18:51:47 Ryan Soler Meth odist Ryder-Hsi POC GLUCOSE 2019-05-12 18:01:00 Orlin Emery ethodist OK AN EMERGENT 2019-05-12 14:53:11 Rosette Naranjo Meth odist SUPRAGLOTTIC AIRWAY POC GLUCOSE 2019-05-12 08:10:00 Orlin Emery ethodist TROPONIN 2019-05-12 06:00:00 Hima Chambers Meth odist Tomasa Garcia HC COMPLETE BLD COUNT 2019-05-12 06:00:00 Cindy Milligan [facility] W/AUTO DIFF Tajdin BASIC METABOLIC PANEL 2019-05-12 06:00:00 Cindy Milligan Tajdin MAGNESIUM LEVEL 2019-05-12 06:00:[address] thodist Tajdin ANTI XA, UNFRACTIONATED 2019-05-12 06:00:00 Hima Chambers Sangeekenyatta Joylizbeth ESTIMATED GFR 2019-05-12 06:00:[address] thodist Tajdin TROPONIN 2019-05-12 02:00:00 Orlin Emery ethodist ANTI XA, UNFRACTIONATED 2019-05-12 00:30:00 Hima Chambers TYPE AND SCREEN 2019-05-12 00:30:00 Orlin Emery ethodist ECG 12-LEAD 2019-05-12 00:14:04 Ryan Soler-Hsi POC GLUCOSE 2019-05-11 21:36:00 Orlin Emery ethodist TROPONIN 2019-05-11 19:25:00 Hima Chambers ECG 12-LEAD 2019-05-11 16:15:59 Hima Chambers XR CHEST 1 VW PORTABLE 2019-05-11 16:14:06 Hima Chambers HC COMPLETE BLD COUNT 2019-05-11 15:50:00 Hima Chambers W/AUTO DIFF Tomasa Garcia COMPREHENSIVE METABOLIC 2019-05-11 15:50:00 Hima Chambers PANEL Tomasa Garcia CREATINE KINASE, TOTAL 2019-05-11 15:50:00 Hima Chambers Catholic (CPK) Sangmarium Garcia TROPONIN 2019-05-11 15:50:00 Hima Chambers B NATRIURETIC PEPTIDE 2019-05-11 15:50:00 Hima Chambers PROTHROMBIN TIME WITH INR 2019-05-11 15:50:00 ReyesHima corbin PARTIAL THROMBOPLASTIN 2019-05-11 15:50:00 Hima Chambers Catholic TIME (PTT) Tomasa Garcia ESTIMATED GFR 2019-05-11 15:50:00 Hima Chambers odist Tomasa Garcia ANTI XA, UNFRACTIONATED 2019-05-11 15:50:00 Hima Chambers OK CRITICAL CARE, E/M 2019-05-11 15:47:17 Hima Chambers Catholic 30-74 MINUTES Tomasa Garcia ECG ED PRELIMINARY 2019-05-11 15:47:17 Hima Chambers ethodist INTERPRETATION Tomasa Garcia Plan of Care Planned Activity Planned Date Details Comments Source Future Scheduled 2019-12-29 INFLUENZA VACCINE Xander delgado Catholic Test 00:00:00 [code = INFLUENZA VACCINE] Future Scheduled 2002 65+ PNEUMOCOCCAL [place] [facility] Test 00:00:00 VACCINE (1 of 2 - PCV13) [code = 65+ PNEUMOCOCCAL VACCINE (1 of 2 - PCV13)] Future Scheduled 1987-10-01 SHINGLES VACCINES (#1) [place] [facility] Test 00:00:00 [code = SHINGLES VACCINES (#1)] Future Scheduled 1947-10-01 DIABETIC FOOT EXAM Stefany mitchell [facility] Test 00:00:00 [code = DIABETIC FOOT EXAM] Future Scheduled 1935 DIABETIC RETINAL EYE Kadie malena [facility] Test 00:00:00 EXAM [code = DIABETIC RETINAL EYE EXAM] Encounters Start End Encounter Admission Attending Care Care Encounter Source Date/Time Date/Time Type Type Clinicians Facility Department ID 2019-09-08 2019-09-08 [id number] [place] 00:00:00 00:00:[address] IMRAN [address] 2019-09-01 2019-09-01 Outpatient JADA [facility] [id number] [place] 00:00:00 00:00:00 IMRAN [address] 2019-09-01 2019-09-01 Outpatient WOFREDDIEIECHOWS [facility] [id number] [place] 00:00:00 00:00:00 KI, 485 Method i KALPESH 2019-07-11 2019-07-12 Inpatient JESUS GARCIA [facility] [id number] [place] 00:00:00 00:00:[address] 2019-06-02 2019-06-02 Outpatient RYDER [facility] [id number] [place] 00:00:00 00:00:00 RYAN [place] [facility] 2019-05-11 2019-05-13 Inpatient RUPERT [facility] [id number] [place] 00:00:00 00:00:00 ORLIN [address] Results Test Description Test Time Test Comments Results Result Sourc e Comments Airway 2019-08-29 Hina Landis V., Kadie guy 2 09/09/2019 12:11 Ct thodist 12:10:59 PMAirwayDate/Time: 09/08/2019 1:40 PMPerformed by: Hina Landis V., MDAuthorized by: Hina Landis MD Location: ORUrgency: ElectiveDifficult Airway: No Anesthesiologist: Hina Landis V., MDResident/UTILITY MECHANIC/AA: Piedad Uribe CRNAPerformed by: resident/UTILITY MECHANIC/AAPreoxy genated with 100% O2: Yes C-spine Precautions Maintained Throughout: Yes Mask Ventilation: Not attemptedFinal Airway Type: Supraglottic airwayFinal LMA: I-GelLMA Size: 5Number of Attempts at Approach: 1 POC glucose 2019-09-08 15:21:41 Test Item Value Reference Range Interpretation Comme [facility] POC glucose (test code = 41266-2) 157 mg/dL 65-99 H Oncology Technician Name: Boubacar Alvarez ID: [id number] Lab Interpretation (test code = Abnormal 70304-5) [place] [facility] [place] < 1 [id number] 15:18:06Hm Interface, Radiology Results 09/08/2019 3:21 PM CDTEXAMINATION: OR FL < 1 HOURCLIN ICAL HISTORY: None provided.IMPRESSION:1. Fluoroscopy was provided in the operating. I was not present during the procedure.2. Please refer to the operative report for findings.3. Total Dose: 7 fluoroscopic images. 88.1 seconds of fluoroscopy time.[facility] MethodistComprehensive metabolic panel 2019-09-08 10:50:56 Test Item Value Reference Range Interpretation Comments Sodium (test code = 2951-2) 135 135- 148 mEq/L Potassium (test code = 2823-3) 3.8 3.5- 5.0 mEq/L Chloride (test code = 2075-0) 98 98- 112 mEq/L CO2 (test code = 2027-9) 25 24- 31 mEq/L Anion gap (test code = 46777-9) 12@ANIO 7- 15 mEq/L BUN (test code = 3094-0) 44 mg/dL 8-23 H Creatinine (test code = 2160-0) 5.12 mg/dL 0.7-1.2 H Glucose (test code = 2345-7) 133 mg/dL 65-99 H Calcium (test code = 65275-6) 9.9 mg/dL 8.8-10.2 Protein (test code = 2885-2) 7.3 g/dL 6.3-8.3 Albumin (test code = 1751-7) 3.5 g/dL 3.5-5 A/G ratio (test code = 1759-0) 0.9 0.7-3.8 Alkaline phosphatase (test code = 85 U/L 40-129 6768-6) AST (test code = 1920-8) 16 U/L 10-50 ALT (test code = 1742-6) <5 5-50 A Total bilirubin (test code = 0.3 mg/dL 0.2-1.2 1974-04) Lab Interpretation (test code = Abnormal 87955-8) [place] MethodistEstimated [id number] 10:50:56 Test Item Value Reference Range Interpretation Comments Estimated GFR (test 10 mL/min/1.73 m2 A Bradford gunn Units code = 5488) InterpretationG 1 >=90 Deidre l or highG2 60-89 Mildly decrease dG3a 45-59 Mil dly to moderately decr lnjzcX2d 30-44 Moderately to s everely decreasedG4 15-29 Severe ly decreasedG5 <15 Kidney chinamy lureThe eGFR was calcul ated using the Chron ic Kidney Disease Epidemiology Collaboration ( CKD-EPI) equation. Interpretation is based on recommendati ons of the National dney [facility]-Kidn ey Disease Outcome s Quality Initiat reginald (NKF-KDOQI) pub lished in 2013. Lab Interpretation Abnormal (test code = 64826-8) [facility] panel [id number] 10:14:02 Test Item Value Reference Range Interpretation Comments POC sodium (test code = 135 mmol/L 335-405 2717-0) POC potassium (test 3.8 mmol/L 3.5-5 code = 6298-4) POC hematocrit (test 32 % 41-51 L code = 4544-3) POC glucose (test code 127 mg/dL 65-99 H Opera tor Name: = 2339-0) Joaquin Yang ID : [id number] POC hemoglobin (test 10.9 g/dL 14-18 L code = 718-7) Lab Interpretation Abnormal (test code = 12047-5) Dell DuarteCOVID-19 qualitative [id number] 01:09:13 Test Item Value Reference Range Interpretation Comments Interpretation (test Negative results do code = 6317736) not preclude 2019-nCoV infection and should not be used as the sole basis for treatment or other patient management decisions. Negative results must be combined with clinical observations, patient history, and epidemiological information. COVID-19 qualitative Not-Detected Not-Detected PCR result (test code = 58079-6) COVID-19 qualitative See link below for C ase Number: PCR (test code = PDF Lab Report [id number]) Dell MethodistType and [id number] 14:57:00 Test Item Value Reference Range Interpretation Comments ABO grouping (test code = 883-9) O Rh type (test code = 81742-4) POS Antibody screen (gel) (test code = NEG 890-4) Dell MethodpazECG Pre/Post [id number] 14:30:21 Test Item Value Reference Range Interpretation Comments Ventricular rate (test 76 code = 253) Atrial rate (test code 76 = 255) OK interval (test code 180 = 266) QRSD interval (test 206 code = 260) QT interval (test code 494 = 264) QTC interval (test 555 code = 265) P axis 1 (test code = 57 267) QRS axis 1 (test code -26 = 268) T wave axis (test code 129 = 270) EKG impression (test Electronic ventricular code = 273) pacemaker-In automated comparison with ECG of 11-JUL-2019 11:04,-Previous ECG has undetermined rhythm, needs review- Dell DuarteXR Chest 2 [id number] 14:22:54Hm Interface, Radiology Results Incoming - 09/01/2019 2:26 PM CDTEXAMINATION: XR CHEST 2 VWCLINICAL HISTORY: Z01.818 Encounter for other preprocedural examination, preopCOMPARISON: 05/11/2019 IMPRESSION:Left jugular dialysis catheter is present extending to SVC. Right subclavian pacer remains in place. There is mild cardiomegaly. There is moderate left pleural effusion, which is increased from prior study. There is associated basilar volume loss. Mild blunting of right costophrenic angle suggesting trace right pleural effusion also present. There is no pneumothorax. Bones are demineralized. [facility]-[id number] MethodistHemoglobin [id number] 14:07:53 Test Item Value Reference Range Interpretation Comments Hemoglobin A1C (test 5.4 % 4-5.6 HbA1c c utoffs for code = 67063-3) diagnosing d iabetes:4.0% - 5.6% = normal 5.7% - 6.4% = increase d risk for diabetes (prediabetes)9> =6.5% = wjnutyzp5Yspnc for glycemic contro l (ADA 2016)< 7.0% Ta rget for non anoop lts with diabetes. More or less stringent targe ts may be appropriate for individual jr ents. <7.5% Target for Children and ad olescents with type 1 cathie betes. Dell WilkesistPartial thromboplastin time, [id number] 14:02:44 Test Item Value Reference Range Interpretation Comments PTT (test code = 29.6 23.0- 36.0 sec PTT thera peutic range for 3173-2) unfractionated heparin is61.0-112.0 se conds which corresponds to Anti-Xa0.3-0.7 U/ml. Dell DuarteProthrombin time with [id number] 14:02:36 Test Item Value Reference Range Interpretation Comments Prothrombin time (test 13.3 11.5- 14.5 sec code = 5902-2) INR (test code = 1.0 The Interna tional 38588-1) Normalized Rati o (INR) is a therapeutic m onitoring tool for patien ts who are stable on oral anticoagulant t herapy. An INR of 2.0-3.0 is suggested for d eep vein thrombosis/pulm onary embolism. Dell MethodistCBC with platelet and [id number] 13:54:14 Test Item Value Reference Range Interpretation Comments WBC (test code = 72470-3) 8.0 4.5- 11.0 k/uL RBC (test code = 88180-8) 3.50 m/uL 4.4-6 L HGB (test code = 718-7) 10.9 g/dL 14-18 L HCT (test code = 4544-3) 34.5 % 41-51 L MCV (test code = 787-2) 98.6 fL 82-100 MCH (test code = 785-6) 31.1 pg 27-34 MCHC (test code = 786-4) 31.6 g/dL 31-37 RDW - SD (test code = 42678-9) 49.9 fL 37-55 MPV (test code = 27464-3) 9.6 fL 6.9-11 Platelet count (test code = 191 K/uL 150-400 53592-5) Nucleated RBC (test code = 15383-5) 0.00 /100 WBC Neutrophils (test code = 97152-9) 59.6 % 39-69 Lymphocytes (test code = 14185-5) 24.9 % 25-45 L Monocytes (test code = 06361-0) 9.0 % 0-10 Eosinophils (test code = 42197-9) 5.4 % 0-5 H Basophils (test code = 56411-5) 0.8 % 0-1 Immature granulocytes (test code = 0.3 % 0-1 35148-9) Lab Interpretation (test code = Abnormal 46779-3) Dell MethodistAnaerobic [id number] 13:18:32 Test Item Value Reference Range Interpretation Comments Anaerobic No anaerobic Specimen culture isolate organisms InformationS pecimen (test code = isolated. Source: TissueS pecimen 552) Site: Arm: LEFT ARM FISTULA PUS SWA B FOR AEROBIC,ANAEROB IC,GRAM STAIN [place] MethodistAerobic [id number] 20:47:24 Test Item Value Reference Range Interpretation Comments Aerobic culture No growth Specimen isolate (test after 3 days. InformationSp ecimen code = 498) Source: TissueS pecimen Site: Arm: LEFT ARM FISTULA PUS SWA B FOR AEROBIC,ANAEROB IC,GRAM STAIN [place] MethodistGram [id number] 20:47:24Gram stain isolateOccasional WBC'sNo organisms seen Comment: Specimen InformationSpecimen Source: Tis sueSpecimen Site: Arm: LEFT ARM FISTULA PUS SWAB FOR AEROBIC,ANAEROBIC,GRAM STAIN [facility] MethodistHepatitis B surface Ab, [id number] 18:23:57 Test Item Value Reference Range Interpretation Comments Hepatitis B surface <3.10 IU/L The anti -HBs is less than Ab (test code = 10 IU/L and is therefore 5193-8) negative. There is no evidence of rec overy from hepatitis B inf ection or evidence of ant ibody response to HBV vaccination.An anti-HBs result greater than or equal to 10 IU/ L implies immunity. For post-vaccinatio n antibody testing guideli kristen for the general public refer to MMWR February 282004/Vol. 54(No. 16);1-23 , and for healthcare work ers refer to MMWR February 282012/Vol. 62(No. 10);-19 .Reference Interval: anti- HBs 9.99 IU/L or less .. ..... Rvwjqrrf63.00 I U/L or greater .... PositiveResults greater than 1,000.00 I U/L are reported as gre ater than 1,000.00 IU/L. This assay should not be u sed for blood donor scr eening, associated re-e ntry protocols, or f or screening Human Cell, Tis sues and Cellular and Ti ssue-Based Products (HCT/P ).Performed by ANUSHA hicks,[address] [place] [address] twq .[employer] , Pasquale Christopher MD, Lab. Director Shar[facility] MethodistSurgical pathology [id number] 14:37:08 Test Item Value Reference Range Interpretation Comments Case number (test code = [id number]) Surgical pathology See link below for report (test code = PDF Lab Report 2255) Result status (test code This is Final Report = [id number]) for [id number] Shar[facility] MethodistHepatitis B surface [id number] 14:28:37 Test Item Value Reference Range Interpretation Comments Hepatitis B surface Ab (test Non-reactive Non-reactive code = 64333-2) [place] MethodistHepatitis B surface [id number] 11:13:37 Test Item Value Reference Range Interpretation Comments Hepatitis B surface Ag (test Non-reactive Non-reactive code = 5195-3) [facility] [id number] 14:16:22PaRosette sagastume CRNA 07/11/2019 2:17 PMAirwayDate/Time: 07/11/2019 1:57 PMPerformed by: Rosette Naranjo CRNAAuthorized by: Kalpesh Fischer MD Location: ORUrgency: ElectiveDifficult Airway: Yes Anesthesiologist: Kalpesh Fischer MDPerformed by: anesthesiologistPreoxygenated with 100% O2: Yes C-spine Precautions Maintained Throughout: Yes Mask Ventilation: Not attemptedFinal Airway Type: Endotracheal airwayFinal Endotracheal Airway: ETTTechnique Used: Direct laryngoscopyDevices/Methods Used in Placement: Intubating styletInsertion Site: OralBlade Type: MillerLaryngoscope Blade/Videolaryngoscope Blade Size: 2ETT Size (mm): 8.0Measured from: LipsETT to Lips (cm): 23Placement Verified by: CO2 detection and direct visualization Modified RSI: Yes Number of Attempts at Approach: 1[facility] metabolic [id number] 12:07:29 Test Item Value Reference Range Interpretation Comments Sodium (test code = 2951-2) 144 135- 148 mEq/L Potassium (test code = 2823-3) 4.0 3.5- 5.0 mEq/L Chloride (test code = 2075-0) 105 98- 112 mEq/L CO2 (test code = 2028-9) 25 24- 31 mEq/L Anion gap (test code = 41597-6) 14@ANIO 7- 15 mEq/L BUN (test code = 3094-0) 94 mg/dL 8-23 H Creatinine (test code = 2160-0) 10.04 mg/dL 0.7-1.2 H Glucose (test code = 2345-7) 155 mg/dL 65-99 H Calcium (test code = 53102-5) 11.2 mg/dL 8.8-10.2 H Lab Interpretation (test code = Abnormal 55731-9) [facility] MethodistECG 12 [id number] 11:52:23 Test Item Value Reference Range Interpretation Comments Ventricular rate (test 69 code = 253) Atrial rate (test code 69 = 255) OK interval (test code 220 = 266) QRSD interval (test 186 code = 260) QT interval (test code 480 = 264) QTC interval (test code 514 = 265) P axis 1 (test code = 61 267) QRS axis 1 (test code = -31 268) T wave axis (test code 125 = 270) EKG impression (test Electronic demand code = 273) pacing with 1st degree AV block-Left axis deviation-In automated comparison with ECG of 12-MAY-2019 00:14,-No significant change was found- [facility] MethodistAnti Xa, [id number] 06:49:10 Test Item Value Reference Range Interpretation Comments Anti Xa, unfractionated <0.10 U/mL Ther apeutic Range: (test code = 3274-8) 0.30 - 0.70 U/mL Dell [id number] 14:53:11PateRosette france CRNA 05/12/2019 2:54 PMAirwayDate/Time: 05/12/2019 2:46 PMPerformed by: Rosette Naranjo CRNAAuthorized by: Cristi Anderson MD Location: ORUrgency: EmergentDifficult Airway:No Anesthesiologist: Cristi Anderson, MDResident/UTILITY MECHANIC/AA: Rosette Naranjo CRNAPerformed by: resident/UTILITY MECHANIC/AAConsent Cannot be Obtained Due to Urgency: Yes Verbal Consent Obtained: Yes Written Consent Obtained: Yes Consent Given By: Patient and spouseRisks and Benefits were Discussed: Yes Patient Identity Confirmed by: Verbally with patient and arm bandPreoxygenated with 100% O2: Yes C-spine Precautions Maintained Throughout: Yes Mask Ventilation: Not attemptedFinal Airway Type:Supraglottic airwayFinal LMA: I-GelLMA Size: 5Number of Attempts at Approach: 1[facility] MethodistMagnesium [id number] 07:22:35 Test Item Value Reference Range Interpretation Comments Magnesium (test code = 07181-1) 2.5 mg/dL 1.6-2.4 H Lab Interpretation (test code = Abnormal 70429-2) Dell DuarteClvvvdnqaStdtrstl2626-10-65 06:53:30 Test Item Value Reference Range Interpretation Comments Troponin (test code = 0.126 ng/mL 0-0.04 H In pat ients 00249-3) suspected of waggoner ving a myocardial infarction, purvi ng with all other appropriate cli nical measures and ac tions including ECG a nd other diagnosti cs as appropriate, me asure Ultra TnI at 0 hrs and at 3 hrs.Myocardial infarction VERY LIKELYThe 0 hr TnI level is > 0.10 ng/mL ----- ----- ----- --Ihsan cardial infarct ion LIKELYThe 0 hr TnI level is > 0.04 ng/mL and 3 hr level is increased or decreased by at least 0.020 ng/ mL ----- ----- ----- Ihsan cardi al infarction V ABDIRASHID UNLIKELYBokenyatta e 0 hr and 3 hr TnI levels <= 0.04 ng/mL(within no rmal limits) OR 0 hr is > 0.04 ng/mL and 3 hr is increased OR decreased by le ss than 0.020 ng/m L Lab Interpretation Abnormal (test code = 60081-5) Dell DuarteB natriuretic [id number] 16:45:35 Test Item Value Reference Range Interpretation Comments BNP (test code = 35079-0) 732 pg/mL 0-100 H Lab Interpretation (test code = Abnormal 11423-7) Dell DuarteCreatine kinase, total (CPK)2019-05-11 16:38:27 Test Item Value Reference Range Interpretation Comments Creatine kinase (test code = 2157-6) 46 U/L 39-308 [place] MethodistXR Chest 1 Vw [id number] 16:15:44Hm Interface, Radiology Results 05/11/2019 4:18 PM CSTEXAMINATION: XR CHEST 1 VW PORTABLECLINICAL HISTORY: missed dialysisCOMPARISON: 09/17/2018IMPRESSION:Heart size appears prominent although this may be accentuated given portable technique. A right subclavian pacemaking device is stable.A small left-sided pleural effusion is present. Bibasilar atelectasis is noted. There is no pulmonary edema. There is no significant right pleural effusion. There is no pneumothorax.There are degenerative changes within the thoracic spine.[facility] [place] CITYL-[id number] MethodistPOST [facility] [place] [place] Interpretation - Not an [id number] 15:47:17 Test Item Value Reference Range Interpretation Comments LAKE (test code = LAKE) Hima Chambers MD 05/17/2019 1:03 [facility] ED Preliminary Interpretation - Not an OrderPerformed by: Hima Chambers MDAuthorized by: Hima Chambers MD ECG reviewed by ED Physician in the absence of a synchro assembler: yes Interpretation: Interpretation: abnormal Rate: ECG rate: 82 ECG rate assessment: normal Rhythm: Rhythm: paced Ectopy: Ectopy: none QRS: QRS axis: Normal QRS intervals: WideST segments: ST segments: Non-specificT waves: T waves: non-specific Lab Interpretation Abnormal (test code = 87650-4) Dell WilkesistCRITICAL [id number] 15:47:17Hima Chambers MD 05/17/2019 1:03 AMCritical CarePerformed by: Hima Chambers MDAuthorized by: Hima Chambers MD Critical care provider statement: Critical care time (minutes): 37 Critical care time was exclusive of: Separately billable procedures and treating other patients Critical care was necessary to treat or prevent imminent or life-threatening deterioration of the following conditions: Arterial occlusion, anticoagulation, discussion with vascular surgeon. Critical care was time spent personally by me on the following activities:Development of treatment plan with patient or surrogate, evaluation of patient's response to treatment, examination of patient, obtaining history from patient or surrogate, ordering and performing treatments and interventions, ordering and review of laboratory studies, pulse oximetry, re-evaluation ofpatient's condition, discussions with consultants, ordering and review of radiographic studies and review of old chartsDell Duarte
--- OUTSIDE RECORDS SUMMARY | 2019-12-06 08:29 | XMS REPORT | Clinical Summary ---
:1935 Author Organization [facility] Address [address] [place] [address] Care Team Providers Name Role Phone Wang Garcia MD Primary Care Provider Allergies Active Allergy Reactions Severity Noted Date Comments Adhesive Tape-Silicones Itching, Other (See Comments) Medium 09/13/2018 blisters Latex Hives Medium 05/11/2019 Blistering Penicillins Itching, Swelling High 11/16/2017 Medications Medication Sig Dispensed Refills Start End Date Status Date terazosin (HYTRIN) Take 10 mg by 0 Active 10 MG capsule mouth 2 (two) times a day. gabapentin Take 300 mg by 0 Acti ve (NEURONTIN) 300 mg mouth daily. capsule lanthanum (FOSRENOL) Chew 1,000 mg 0 Active 1000 MG chewable 3 (three) tablet times a day with meals. pioglitazone (ACTOS) Take 15 mg by 0 Active 15 MG tablet mouth daily. latanoprost Administer 1 0 Activ e (XALATAN) 0.005 % drop to both ophthalmic solution eyes nightly. clopidogreL (PLAVIX) Take 75 mg by 0 Active 75 mg tablet mouth daily. albuterol (PROAIR Inhale 2 puffs 0 Active HFA) 90 every 6 (six) mcg/actuation hours as inhaler needed for wheezing. polyethylene glycol Take 17 g by 0 Active (MIRALAX) 17 gram mouth daily. packet ascorbic acid, Take 500 mg by 0 Active vitamin C, (VITAMIN mouth daily. C) 500 MG tablet acetaminophen Take 500 mg by 0 A ctive (TYLENOL) 500 MG mouth 3 tablet (three) times a day as needed for mild pain (FOR BACK AND HIP PAIN). Saccharomyces Take 250 mg by 0 A ctive boulardii mouth daily. (FLORASTOR) 250 mg capsule diphenhydrAMINE Take 25 mg by 0 Active (BenadryL) 25 mg mouth every 6 capsule (six) hours as needed for itching. cholecalciferol, Take by mouth 0 Active vitamin D3, (VITAMIN daily. D3 ORAL) aspirin (ECOTRIN) 81 Take 81 mg by 0 05/11 Discontinued MG enteric coated mouth nightly. 20 (Med List tablet Cleanup) traMADol-acetaminoph Take 1 tablet 0 08/31 Discontinued en (ULTRACET) by mouth 20 37.5-325 mg per nightly .acute tabletIndications: pain. acute pain calcium Take 1 tablet 0 09/01/19 Discon tinued citrate-vitamin D3 by mouth 2 20 (CITRACAL+D) 315-200 (two) times a mg-unit per tablet day. vancomycin 1,000 mg Infuse 1,000 1 each 0 0 in sodium chloride mg into a 0 20 0.9% 250 mL IVPB venous catheter 3 (three) times a week for 14 days. acetaminophen-codein Take 1 tablet 30 tablet 0 09/14 e (TYLENOL WITH by mouth every 0 20 CODEINE #3) 300-30 4 (four) hours mg per as needed for tabletIndications: moderate pain acute pain for up to 7 days .acute pain. 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 Clotted renal dialysis AV graft 05/11/2019 AV fistula infection 09/03/2018 Arteriovenous fistula occlusion 11/16/2017 Encounters Date Type Specialty Care Team Description 09/08/2019 Anesthesia Event General Surgery Hina Landis MD Sardina, Maydee, NP 09/08/2019 Surgery General Surgery Omega Elias LEFT UPP MURRAY Robertson MD EXTREMITY AV GR AFT CREATION , FISTULOGRAM, ANGIOPLASTY BALLOON AND MELVIN NT 09/08/2019 Hospital Encounter General Surgery Omega Elias MD 09/01/2019 Hospital Encounter Radiology Jung Fischer Duncan J., MD 09/01/2019 Pre-Admit Testing Pre-Admission Testing Sajan Elias Preop testing Appointment MD Marcelo (Primary Dx) 08/31/2019 Travel 08/17/2019 Travel 08/16/2019 Travel 07/11/2019 Anesthesia Event General Surgery Duncan Fischer MD Patel, Bhavika, HANDLE AND VENT MACHINE OPERATOR 07/11/2019 Surgery General Surgery Omega Elias Excision of left MD Marcelo Upper Extremity Fistula and Tunneled Dialys is Catheter Placem ent left chest 07/11/2019 Hospital Encounter General Internal Omega Elias - Dino Robertson MD 07/12/2019 Wang Garcia MD 07/11/2019 Travel 06/02/2019 Office Visit Cardiovascular Ryan Soler Encounter MD Linda regarding vasc ular access for dialysis for end-stage renal disease (HCC) (Primary Dx) 05/17/2019 Telephone Cardiovascular Fidelina Johnson 05/12/2019 Anesthesia Event General Surgery Cristi Anderson MD Patel, Bhavika, HANDLE AND VENT MACHINE OPERATOR 05/12/2019 Surgery General Surgery Ryan Soler LEFT UPPER MD Linda EXTREMITY AV G RAFT THROMBECTOMY, BALLOON ANGIOPLASTY AND STENT PLACEMENT 05/11/2019 Hospital Encounter General Internal Hima Chambers chial artery occlusion, left (HCC) (Primary Dx); - Medicine Tomasa Garcia, Elevated tr oponin 05/13/2019 Victor Hugo Hancock MD after 12/05/2018 Family History Medical History Relation Name Comments Depression Father Heart disease Father Hypertension Father Diabetes Mother Heart attack Mother Heart disease Mother Hypertension Mother Stroke Mother Relation Name Status Comments Father Mother Social History Tobacco Use Types Packs/Day Years Used Date Never Smoker Smokeless Tobacco: Never Used Alcohol Use Drinks/Week oz/Week Comments No Sex Assigned at Date Recorded Not on file Job Start Date Occupation Industry Not on file Not on file Not on file Travel History Travel Start Travel End No recent travel history available. Last Filed Vital Signs Vital Sign Reading Time Taken Comments Blood Pressure 135/65 09/08/2019 5:15 PM CDT Pulse 67 09/08/2019 5:15 PM CDT Temperature 36.2 C (97.2 F) 09/08/2019 4:30 PM CDT Respiratory Rate 16 09/08/2019 5:15 PM CDT Oxygen Saturation 96% 09/08/2019 5:15 PM CDT Inhaled Oxygen Concentration - - Weight 112 kg (247 lb) 09/08/2019 9:59 AM CDT Height 182.9 cm (6') 09/08/2019 9:59 AM CDT Body Mass Index 33.5 09/08/2019 9:59 AM CDT Plan of Treatment Health Maintenance Due Date Last Done Comments DIABETIC RETINAL EYE EXAM 1935 DIABETIC FOOT EXAM 10/01/1945 SHINGLES VACCINES (#1) 10/01/1987 65+ PNEUMOCOCCAL VACCINE (1 of 2 - PCV13) 2002 INFLUENZA VACCINE 12/29/2019 Implants Implanted Type Area Supervisor Sulfuric Acid Plant Device Shelf Model / Identifier Expiration Serial / Date Lot Assurity Mri Dual - [id number] - [id number] Cardiac N/A: 12/28/2019 [id number] / Implanted: Qty: 1 on 09/16/2018 by Lety Sherwood MD at [facility] Pacemaker N/A [id number] / Generators [id number] Lead Pace Bipolar Is-1 Endocrdl 46cm - [id number] - [id number] C ardiac N/A: [facility] 04/29/20212087TC/46 / Implanted: Qty: 1 on 09/16/2018 by Lety Sherwood MD at [facility] Pacing Leads N/A [id number] / or Electrodes [id number] or Accessories Tendril Sts, Pacemaker Leads, Model 52 - [id number] - [id number] Cardiac N/A: 05/27/2021/52 / Implanted: Qty: 1 on 09/16/2018 by Lety Sherwood MD at [facility] Pacing Leads N/A [id number] / or Electrodes [id number] or Accessories Catheter Hmodial Dura-Flow Prcrv Bsc Deb cheryl Pelbl Shth 28cm - [id number] - [id number] Central N/A: ANGIODYNAMICS 07/10/2020 [id number] / Implanted: Qty: 1 on 07/11/2019 by Omega Elias MD at [facility] Venous N/A INC [id number] / Catheters Stent Endoprosthesis Viabahn [id number] Hepbioactive W/Rm - [id number] Coronary N/A: W L GORE 08/23/2021 [id number] / Implanted: 05/12/2019 at [facility] (Quantity not on file) Stents N/A [id number] / [id number] Stent Endoprosthesis Viabahn [id number] Hepbioactive W/Rm - [id number] Coronary N/A: W L GORE 01/25/2022 [id number] / Implanted: 05/12/2019 at [facility] (Quantity not on file) Stents N/A [id number] / [id number] System Thrmbtmy Otw 6fr 50cm Angiojet Avx - [id number] Surgical N/A : [place]ON 07/21/2019 [id number] / Implanted: 11/17/2017 at [facility] (Quantity not on file) Im plants; N/A SCIENTIFIC ANITHA / Expanders; [id number] Extenders; Surgical Wires System Thrmbtmy Otw 6fr 50cm Angiojet Avx - [id number] Surgical N/A : [place] 07/21/2019 [id number] / Implanted: 11/17/2017 at [facility] (Quantity not on file) Im plants; N/A SCIENTIFIC ANITHA / Expanders; [id number] Extenders; Surgical Wires Kit Selnt Fibrin Humn [facility] Surgy 5ml Evicel - [id number] Surgic al Left: ETHICON - [id number] / Implanted: 09/06/2018 at [facility] (Quantity not on file) Implants ; Arm, / Expanders; Upper Extenders; Surgical Wires System Thrmbtmy Otw 6fr 50cm Angiojet Avx - [id number] Surgical N/A: [place]ON [id number] / Implanted: 05/12/2019 at [facility] (Quantity not on file) Im plants; N/A SCIENTIFIC ANITHA / Expanders; Extenders; Surgical Wires Stent Endprths Viabahn [id number] 7mm Heprn Bioactv Surf - [id number] - [id number] Surgical Left: W L GORE 12/29/2020 [id number] / Implanted: Qty: 1 on 09/08/2019 by Omega Elias MD at [facility] Stents Arm [id number] / [id number] Stent Endprths Viabahn [id number] 7mm Heprn Bioactv [facility] - [id number] - [id number] Surgical Left: W L GORE 05/20/2022 [id number] / Implanted: Qty: 1 on 09/08/2019 by Omega Elias MD at [facility] Stents Arm [id number] / [id number] Graft Vasclr Propaten Stdwl Strtch 40cm 6mm - [id number] Vascula r Left: W L GORE 05/13/2022 [id number] / Implanted: 09/06/2018 at [facility] (Quantity not on file) Graft Arm, [id number] / Upper [id number] Graft Vasclr Acuseal 40cm 6mm - [id number] Vascular N/A: W L GOR E 02/06/2021 [id number] / Implanted: 09/06/2018 at [facility] (Quantity not on file) Graft N/A [id number] / [id number] Graft Vasclr Propaten Stdwl Strtch 40cm 6mm - [id number] Vascular N/A: W L GORE 04/01/2023 [id number] / Implanted: 09/09/2019 at [facility] (Quantity not on file) Graft N/A [id number] / [id number] Procedures Procedure Name Priority Date/Time Associated Comments Diagnosis GA AN ELECTIVE Routine 09/09/2019 12:10 Results f or this SUPRAGLOTTIC AIRWAY PM CDT procedur e are in the results section. POC GLUCOSE Routine 09/08/2019 3:19 Results for this PM CDT procedure are i n the results section. OR FL < 1 HOUR Routine 09/08/2019 3:05 Results f or this PM CDT procedure are i n the results section. POC PANEL 4 Routine 09/08/2019 10:11 Results for this AM CDT procedure are i n the results section. ESTIMATED GFR STAT 09/08/2019 10:07 Results fo r this AM CDT procedure are i n the results section. COMPREHENSIVE METABOLIC STAT 09/08/2019 10:07 Results for this PANEL AM CDT procedure are i n the results section. XR CHEST 2 VW Routine 09/01/2019 2:20 Preop testing Results f or this PM CDT procedure are i n the results section. ECG PRE/POST OP Routine 09/01/2019 1:14 Preop testing Results for this PM CDT procedure are i n the results section. HEMOGLOBIN A1C Routine 09/01/2019 12:41 Preop testing Results for this PM CDT procedure are i n the results section. PROTHROMBIN TIME WITH Routine 09/01/2019 12:41 Preop testing R esults for this INR PM CDT procedure are i n the results section. PARTIAL THROMBOPLASTIN Routine 09/01/2019 12:41 Preop testing Results for this TIME (PTT) PM CDT procedure are i n the results section. TYPE AND SCREEN Routine 09/01/2019 12:41 Preop testing Results for this PM CDT procedure are i n the results section. HC COMPLETE BLD COUNT Routine 09/01/2019 12:41 Preop testing R esults for this W/AUTO DIFF PM CDT procedure are i n the results section. COVID-19 QUALITATIVE Routine 09/01/2019 12:41 Preop testing Re sults for this PCR PM CDT procedure are i n the results section. HEMODIALYSIS Routine 07/12/2019 1:25 PM CDT HEPATITIS B SURFACE AB, Routine 07/12/2019 10:00 Results for this QUANTITATIVE AM CDT procedure are i n the results section. HEPATITIS B SURFACE Routine 07/12/2019 10:00 Resu lts for this ANTIBODY AM CDT procedure are i n the results section. HEPATITIS B SURFACE Routine 07/12/2019 10:00 Resu lts for this ANTIGEN AM CDT procedure are i n the results section. HEMODIALYSIS Routine 07/12/2019 9:13 AM CDT POC GLUCOSE Routine 07/11/2019 5:22 Results for this PM CDT procedure are i n the results section. SURGICAL PATHOLOGY Routine 07/11/2019 3:29 Resul ts for this REQUEST PM CDT procedure are i n the results section. POC GLUCOSE Routine 07/11/2019 3:29 Results for this PM CDT procedure are i n the results section. GRAM STAIN Timed 07/11/2019 3:15 Results for this PM CDT procedure are i n the results section. AEROBIC CULTURE Timed 07/11/2019 3:15 Results for this PM CDT procedure are i n the results section. ANAEROBIC CULTURE Timed 07/11/2019 3:15 Result s for this PM CDT procedure are i n the results section. OR FL < 1 HOUR Routine 07/11/2019 3:08 Results f or this PM CDT procedure are i n the results section. GRAM STAIN Timed 07/11/2019 3:08 Results for this PM CDT procedure are i n the results section. AEROBIC CULTURE Timed 07/11/2019 3:08 Results for this PM CDT procedure are i n the results section. GA AN ELECTIVE Routine 07/11/2019 2:16 Results f or this ENDOTRACHEAL AIRWAY PM CDT procedur e are in the results section. POC PANEL 4 Routine 07/11/2019 11:11 Results for this AM CDT procedure are i n the results section. ECG 12-LEAD Routine 07/11/2019 11:04 Results for this AM CDT procedure are i n the results section. ESTIMATED GFR Routine 07/11/2019 11:00 Results fo r this AM CDT procedure are i n the results section. PARTIAL THROMBOPLASTIN Routine 07/11/2019 11:00 R esults for this TIME (PTT) AM CDT procedure are i n the results section. PROTHROMBIN TIME WITH Routine 07/11/2019 11:00 Re sults for this INR AM CDT procedure are i n the results section. HC COMPLETE BLD COUNT Routine 07/11/2019 11:00 Re sults for this W/AUTO DIFF AM CDT procedure are i n the results section. BASIC METABOLIC PANEL Routine 07/11/2019 11:00 Re sults for this AM CDT procedure are i n the results section. TYPE AND SCREEN Routine 07/11/2019 11:00 Results for this AM CDT procedure are i n the results section. POC GLUCOSE Routine 05/13/2019 12:03 Results for this PM BRAND PROTECTION MANAGER procedure are i n the results section. HEPATITIS B SURFACE AB, Routine 05/13/2019 8:10 Results for this QUANTITATIVE AM BRAND PROTECTION MANAGER procedure are i n the results section. HEPATITIS B SURFACE Routine 05/13/2019 8:10 Resu lts for this ANTIBODY AM BRAND PROTECTION MANAGER procedure are i n the results section. HEPATITIS B SURFACE Routine 05/13/2019 8:10 Resu lts for this ANTIGEN AM BRAND PROTECTION MANAGER procedure are i n the results section. ANTI XA, UNFRACTIONATED Routine 05/13/2019 6:00 Results for this AM BRAND PROTECTION MANAGER procedure are i n the results section. HC COMPLETE BLD COUNT Routine 05/13/2019 6:00 Re sults for this W/AUTO DIFF AM BRAND PROTECTION MANAGER procedure are i n the results section. HEMODIALYSIS Routine 05/12/2019 10:26 PM BRAND PROTECTION MANAGER POC GLUCOSE Routine 05/12/2019 7:43 Results for this PM BRAND PROTECTION MANAGER procedure are i n the results section. OR FL < 1 HOUR Routine 05/12/2019 6:51 Results f or this PM BRAND PROTECTION MANAGER procedure are i n the results section. POC GLUCOSE Routine 05/12/2019 6:01 Results for this PM BRAND PROTECTION MANAGER procedure are i n the results section. GA AN EMERGENT Routine 05/12/2019 2:53 Results f or this SUPRAGLOTTIC AIRWAY PM BRAND PROTECTION MANAGER procedur e are in the results section. POC GLUCOSE Routine 05/12/2019 8:10 Results for this AM BRAND PROTECTION MANAGER procedure are i n the results section. ESTIMATED GFR Timed 05/12/2019 6:00 Results fo r this AM BRAND PROTECTION MANAGER procedure are i n the results section. ANTI XA, UNFRACTIONATED Routine 05/12/2019 6:00 Results for this AM BRAND PROTECTION MANAGER procedure are i n the results section. MAGNESIUM LEVEL Timed 05/12/2019 6:00 Results for this AM BRAND PROTECTION MANAGER procedure are i n the results section. BASIC METABOLIC PANEL Timed 05/12/2019 6:00 Re sults for this AM BRAND PROTECTION MANAGER procedure are i n the results section. HC COMPLETE BLD COUNT Timed 05/12/2019 6:00 Re sults for this W/AUTO DIFF AM BRAND PROTECTION MANAGER procedure are i n the results section. TROPONIN Timed 05/12/2019 6:00 Results for this AM BRAND PROTECTION MANAGER procedure are i n the results section. TROPONIN Routine 05/12/2019 2:00 Results for this AM BRAND PROTECTION MANAGER procedure are i n the results section. TYPE AND SCREEN Routine 05/12/2019 12:30 Results for this AM BRAND PROTECTION MANAGER procedure are i n the results section. ANTI XA, UNFRACTIONATED Timed 05/12/2019 12:30 Results for this AM BRAND PROTECTION MANAGER procedure are i n the results section. ECG 12-LEAD Routine 05/12/2019 12:14 Results for this AM BRAND PROTECTION MANAGER procedure are i n the results section. POC GLUCOSE Routine 05/11/2019 9:36 Results for this PM BRAND PROTECTION MANAGER procedure are i n the results section. TROPONIN Timed 05/11/2019 7:25 Results for this PM BRAND PROTECTION MANAGER procedure are i n the results section. ECG 12-LEAD STAT 05/11/2019 4:15 Results for this PM BRAND PROTECTION MANAGER procedure are i n the results section. XR CHEST 1 VW PORTABLE STAT 05/11/2019 4:14 R esults for this PM BRAND PROTECTION MANAGER procedure are i n the results section. ANTI XA, UNFRACTIONATED STAT 05/11/2019 3:50 Results for this PM BRAND PROTECTION MANAGER procedure are i n the results section. ESTIMATED GFR STAT 05/11/2019 3:50 Results fo r this PM BRAND PROTECTION MANAGER procedure are i n the results section. PARTIAL THROMBOPLASTIN STAT 05/11/2019 3:50 R esults for this TIME (PTT) PM BRAND PROTECTION MANAGER procedure are i n the results section. PROTHROMBIN TIME WITH STAT 05/11/2019 3:50 Re sults for this INR PM BRAND PROTECTION MANAGER procedure are i n the results section. B NATRIURETIC PEPTIDE STAT 05/11/2019 3:50 Re sults for this PM BRAND PROTECTION MANAGER procedure are i n the results section. TROPONIN STAT 05/11/2019 3:50 Results for this PM BRAND PROTECTION MANAGER procedure are i n the results section. CREATINE KINASE, TOTAL STAT 05/11/2019 3:50 R esults for this (CPK) PM BRAND PROTECTION MANAGER procedure are i n the results section. COMPREHENSIVE METABOLIC STAT 05/11/2019 3:50 Results for this PANEL PM BRAND PROTECTION MANAGER procedure are i n the results section. HC COMPLETE BLD COUNT STAT 05/11/2019 3:50 Re sults for this W/AUTO DIFF PM [employer]AND PROTECTION MANAGER procedure are i n the results section. ECG ED PRELIMINARY Routine 05/11/2019 3:47 Resul ts for this INTERPRETATION PM BRAND PROTECTION MANAGER procedure are in the results section. GA CRITICAL CARE, E/M Routine 05/11/2019 3:47 Re sults for this 30-74 MINUTES PM BRAND PROTECTION MANAGER procedure are in the results section. after 12/05/2018 Results Airway (09/09/2019 12:10 PM CDT) Narrative Performed At Hina Landis MD 09/09/2019 12:11 PM Airway Date/Time: 09/08/2019 1:40 PM Performed by: Hina Landis MD Authorized by: Hina Landis MD Location: OR Urgency: Elective Difficult Airway: No Anesthesiologist: Hina Landis MD Resident/HANDLE AND VENT MACHINE OPERATOR/AA: Clarice Uribe CRNA Performed by: resident/HANDLE AND VENT MACHINE OPERATOR/AA Preoxygenated with 100% O2: Yes C-spine Precautions Maintained Throughou t: Yes Mask Ventilation: Not attempted Final Airway Type: Supraglottic airway Final LMA: I-Gel LMA Size: 5 Number of Attempts at Approach: 1 POC glucose (09/08/2019 3:19 PM CDT)Only the most recent of8 resultswithin the time period is included. Pathologist Sig nature POC glucose 157 (H) 65 - 99 mg/dL [facility] SCIENTOLOGIST Comment: [facility] Digital Media Sales Consultant Name: Rovillos Ray Device ID: [id number] Specimen Blood Performing Organization Address City/State/Zipcode Phone Number [facility] DEPARTMENT OF PATHOLOGY [address] [facility] [place] [address] AND GENOMIC MEDICINE [facility] [address] [facility] X [address] HOSPITAL [place] < 1 Hour (09/08/2019 3:05 PM CDT)Only the most recent of3 results within the time period is included. Specimen Narrative Performed At EXAMINATION: OR FL < 1 HOUR [facility] CLINICAL HISTORY: None provided. IMPRESSION: 1. Fluoroscopy was provided in the operating. I was no t present during the procedure. 2. Please refer to the operative report for findings. 3. Total Dose: 7 fluoroscopic images. 88.1 seconds o f fluoroscopy time. Procedure Note Interface, Radiology Results Incoming - 09/08/2019 3:21 PM CDT EXAMINATION: OR FL < 1 HOUR CLINICAL HISTORY: None provided. IMPRESSION: 1. Fluoroscopy was provided in the opera ting. I was not present during the procedure. 2. Please refer to the operative report for findings. 3. Total Dose: 7 fluoroscopic images. 8 8.1 seconds of fluoroscopy time. Performing Organization Address City/State/Zipcode Phone Number [facility] [address] [place] [address] POC panel 4 (09/08/2019 10:11 AM CDT)Only the most recent of2 resultswithin the time period is included. POC sodium 135 135 - 148 [facility] mmol/L [facility] POC potassium 3.8 3.5 - 5.0 [facility] mmol/L [facility] POC hematocrit 32 (L) 41 - 51 % [facility] POC glucose 127 (H) 65 - 99 mg/dL [facility] Comment: [facility] Digital Media Sales Consultant Name: [facility] Device ID: [id number] POC hemoglobin 10.9 (L) 14.0 - 18.0 [facility] g/dL [facility] Specimen Blood Performing Organization Address City/[facility] Phone Number [facility] DEPARTMENT OF PATHOLOGY [address] [place] [address] Estimated GFR (09/08/2019 10:07 AM CDT)Only the most recent of4 resultswithin the time period is included. Estimated GFR 10 (A) mL/min/1.73 [facility] Comment: m2 [facility] Catergory Units Interpretation HOS PITAL G1 >=90 Normal or high G2 60-89 Mildly decreased G3a 45-59 Mildly to moderately decreas ed G3b 30-44 Moderately to severely decre ased G4 15-29 Severely decreased G5 <15 Kidney failure The eGFR was calculated using the Chronic Kidney Disea se Epidemiology Collaboration (CKD-EPI) equation. Interpretation is based on recommendations of the National Kidney Foundation-Kidney Disease Outcomes Stan lity Initiative (NKF-KDOQI) published in 2014. Specimen Performing Organization Address City/[facility] Phone Number [facility] DEPARTMENT OF PATHOLOGY [address] [place] [address] Comprehensive metabolic panel (09/08/2019 10:07 AM CDT)Only the most recent of2 resultswithin the time period is included. Pathologist Sig nature Sodium 135 135 - 148 mEq/L [facility] Potassium 3.8 3.5 - 5.0 mEq/L [facility] Chloride 98 98 - 112 mEq/L [facility] CO2 25 24 - 31 mEq/L [facility] Anion gap 12@ANIO 7 - 15 mEq/L [facility] BUN 44 (H) 8 - 23 mg/dL [facility] Creatinine 5.12 (H) 0.70 - 1.20 [facility] mg/dL [facility] Glucose 133 (H) 65 - 99 mg/dL [facility] Calcium 9.9 8.8 - 10.2 [facility] mg/dL [facility] Protein 7.3 6.3 - 8.3 g/dL [facility] Albumin 3.5 3.5 - 5.0 g/dL [facility] A/G ratio 0.9 0.7 - 3.8 [facility] Alkaline phosphatase 85 40 - 129 U/L [facility] AST 16 10 - 50 U/L [facility] ALT <5 (A) 5 - 50 U/L [facility] Total bilirubin 0.3 0.2 - 1.2 mg/dL [facility] Specimen Blood Performing Organization Address City/State/Zipcode Phone Number [facility] DEPARTMENT OF PATHOLOGY [address] [facility] [place] [address] AND GENOMIC MEDICINE [facility] [address] [facility] X [address] HOSPITAL XR Chest 2 Vw (09/01/2019 2:20 PM CDT) Specimen Narrative Performed At EXAMINATION: XR CHEST 2 VW [facility] CLINICAL HISTORY: Z01.818 Encounter for other preproce dural examination, preop COMPARISON: 05/11/2019 IMPRESSION: Left jugular dialysis catheter is present extending to SVC. Right subclavian pacer remains in place. There is mild cardi omegaly. There is moderate left pleural effusion, which is increased fro m prior study. There is associated basilar volume loss. Mild blunting of right costophrenic angle suggesting trace right pleural effusion also present. There is no pneumothorax. Bones are demineralized. [facility]-[id number] Procedure Note Hm Interface, Radiology Results Incoming - 09/01/2019 2:26 PM CDT EXAMINATION: XR CHEST 2 VW CLINICAL HISTORY: Z01.818 Encounter for other preprocedural examination, preop COMPARISON: 05/11/2019 IMPRESSION: Left jugular dialysis catheter is presen t extending to SVC. Right subclavian pacer remains in place. There is mild cardiomegaly. There is moderate left pleural effusion, which is increased from prior study. There is associated basilar volume loss. Mild blunting of right costophrenic angle sug gesting trace right pleural effusion also present. There is no pneumothorax. Bones are demineralized. [facility]-[id number] Performing Organization Address City/[facility]/Zipcode Phone Number [facility] [address] [place] [address] ECG Pre/Post Op (09/01/2019 1:14 PM CDT) Pathologist Sig nature Ventricular rate 76 [facility] MUSE Atrial rate 76 [facility] M[facility] GA interval 180 [facility] M[facility] QRSD interval 206 [facility] M[facility] QT interval 494 [facility] M[facility] QTC interval 555 [facility] M[facility] P axis 1 57 [facility] MUSE QRS axis 1 -26 [facility] MUSE T wave axis 129 [facility] MUSE EKG impression Electronic ventricular HM MUSE pacemaker-In automated comparison with ECG of 11-JUL-2019 11:04,-Previous ECG has undetermined rhythm, needs review- Specimen Narrative Performed At This result has an attachment that is no t available. Performing Organization Address [facility] Phone Number [facility] MUSE [address] [place] [address] COVID-19 qualitative PCR (09/01/2019 12:41 PM CDT) Pathologist [facility] Interpretation Negative results do not prec lude 2019-nCoV infection and should not be used as the sole basis for treatment or other patient management decisions. Negative results must be combined with clinical observations, patient history, and epidemiological [facility] information. [facility] COVID-19 qualitative Not-Detected Not-Detecte [facility]ARD PCR result d [facility] COVID-19 qualitative See link below for [facility]ARD PCR PDF Lab SCIENTOLOGIST ReportComment: Case HOSPITAL Number: [id number] Specimen Blood Performing Organization Address City/[facility]/Zipcode Phone Number [facility] DEPARTMENT OF PATHOLOGY AND [address] [place], [place] [address] GENOMIC MEDICINE [address] [address] [facility] Partial thromboplastin time, activated (09/01/2019 12:41 PM CDT)Only the most recent of3 resultswithin the time period is included. Pathologist [facility] PTT 29.6 23.0 - 36.0 [facility] Comment: sec [place] PTT therapeutic range for unfractionated heparin is HOSPITAL 61.0-112.0 seconds which corresponds to Anti-Xa 0.3-0.7 U/ml. Specimen Blood Performing Organization Address City/[facility]/Zipcode Phone Number [facility] DEPARTMENT OF PATHOLOGY [id number] [place] [address] X [phone] Prothrombin time with INR (09/01/2019 12:41 PM CDT)Only the most recent of3 resultswithin the time period is included. Pathologist [facility] Prothrombin time 13.3 11.5 - 14.5 [facility] INR 1.0 MAYNARD Comment: [facility] International Normalized Ratio (INR) is a therapeu [facility] monitoring tool for patients who are stable on oral anticoagulant therapy. An INR of 2.0-3.0 is suggested for deep vein thrombosis/pulmonary embolism. Specimen Blood Performing Organization Address [facility] Phone Number [facility] DEPARTMENT OF PATHOLOGY [address] [place] [address] CBC with platelet and differential (09/01/2019 12:41 PM CDT)Only the most recent of5 resultswithin the time period is included. Pathologist [facility] WBC 8.0 4.5 - 11.0 k/uL [facility] RBC 3.50 (L) 4.40 - 6.00 [facility] m/uL [facility] HGB 10.9 (L) 14.0 - 18.0 [facility] g/dL [facility] HCT 34.5 (L) 41.0 - 51.0 % [facility] MCV 98.6 82.0 - 100.0 fL [facility] MCH 31.1 27.0 - 34.0 pg [facility] MCHC 31.6 31.0 - 37.0 [facility] g/dL [facility] RDW - SD 49.9 37.0 - 55.0 fL [facility] MPV 9.6 6.9 - 11.0 fL [facility] Platelet count 191 150 - 400 K/uL [facility] Nucleated RBC 0.00 /100 WBC [facility] Neutrophils 59.6 39.0 - 69.0 % [facility] Lymphocytes 24.9 (L) 25.0 - 45.0 % [facility] Monocytes 9.0 0.0 - 10.0 % [facility] Eosinophils 5.4 (H) 0.0 - 5.0 % [facility] Basophils 0.8 0.0 - 1.0 % [facility] Immature granulocytes 0.3 0.0 - 1.0 % [facility] Specimen Blood Performing Organization Address City/[facility]/Zipcode Phone Number [facility] DEPARTMENT OF PATHOLOGY [address] [place] [address] [address] [place] [address] HOSPITAL Type and screen (09/01/2019 12:41 PM CDT)Only the most recent of3 resultswithin the time period is included. Pathologist Sig nature ABO grouping O [facility] Rh type POS [facility] Antibody screen (gel) NEG [facility] Specimen Blood Performing Organization Address [facility] Phone Number [facility] DEPARTMENT OF PATHOLOGY [address] [place] [address] [id number] [place] [address] Hemoglobin A1c (09/01/2019 12:41 PM CDT) Hemoglobin A1C 5.4 4.0 - 5.6 % [facility] Comment: [place] HbA1c cutoffs for diagnosing diabetes: HO SPITAL 4.0% - 5.6% = normal 5.7% - 6.4% = increased risk for diabetes (prediabetes )9 >=6.5% = diabetes9 Goals for glycemic control (ADA 2016) < 7.0% Target for non adults with diabetes. More or less stringent targets may be appropriate for individual patients. <7.5% Target for Children and adolescents with type 1 diabetes. Specimen Blood Performing Organization Address City/[facility]/Zipcode Phone Number [facility] DEPARTMENT OF PATHOLOGY [address] [place] [address] X [address] [address] [facility] [address] [facility]. [place]cho[place], [place] X [address] [facility] Hepatitis B surface Ab, quantitative (07/12/2019 10:00 AM CDT)Only the most recent of2 resultswithin the time period is included. Hepatitis B surface <3.10 IU/L [facility] Comment: The anti-HBs is less than 10 IU/L and is therefore neg ative. There is no evidence of recovery from hepatitis B infection or evidence of antibody response to HBV vaccination. An anti-HBs result greater than or equal to 10 IU/L im plies immunity. For post-vaccination antibody testing guidel sabina for the general public refer to MMWR March 21, 2005/Vol. 54 (No. 16);04-21, and for healthcare workers refer to MMWR Feb/Vol. 62(No. 10);04-17. Reference Interval: anti-HBs 9.99 IU/L or less ....... Negative 10.00 IU/L or greater .... Positive Results greater than 1,000.00 IU/L are reported as gre ater than 1,000.00 IU/L. This assay should not be used for blood donor screenin g, associated re-entry protocols, or for screening Human Cell, Tissues and Cellular and Tissue-Based Products (HCT/P) . Performed by [facility], [address] [place] [id number] [email or web address], Pasquale Christopher MD, Lab. Director Specimen Serum Performing Organization Address [facility]/Zipcode Phone Number QED | [facility] [address] [place] [address] [facility] REF LAB [address] [place] [address] Hepatitis B surface antibody (07/12/2019 10:00 AM CDT)Only the most recent of2 resultswithin the time period is included. Pathologist Sig nature Hepatitis B surface Non-reactive Non-reactive [facility] Specimen Blood Performing Organization Address City/State/Zipcode Phone Number [facility] DEPARTMENT OF PATHOLOGY AND [address] [place] [address] [phone] [address] Hepatitis B surface antigen (07/12/2019 10:00 AM CDT)Only the most recent of2 resultswithin the time period is included. Pathologist Sig nature Hepatitis B surface Non-reactive Non-reactive [facility] Ag [facility] Specimen Blood Performing Organization Address City/State/Zipcode Phone Number [facility] DEPARTMENT OF PATHOLOGY [address] [facility], [place] [address] AND GENOMIC MEDICINE [facility] [address] [facility], [place] [address] [facility] Surgical pathology request (07/11/2019 3:29 PM CDT) [facility] DEPARTMENT OF PATHOLOGY AND GENOMIC MEDICINE Surgical pathology See link below [facility] DEPARTMENT OF report for PDF Lab PATHOLOGY AND Report GENOMIC MEDICINE Result status This is Final [facility] DEPARTMENT OF Report for PATHOLOGY AND [id number] GENOMIC MEDICINE Specimen Performing Organization Address City/[facility]/Zipcode Phone Number [facility] DEPARTMENT OF PATHOLOGY [id number] [place] [address], [place] X [phone] AND GENOMIC MEDICINE Aerobic culture (07/11/2019 3:15 PM CDT)Only the most recent of2 resultswithin the time period is included. Aerobic culture No growth after 3 days. [facility] IST isolate Comment: HOSPITAL Specimen Information Specimen Source: Tissue Specimen Site: Arm: LEFT ARM FISTULA PUS SWAB FOR AEROBIC,ANAEROBIC,GRAM STAIN Specimen Tissue - Arm Performing Organization Address City/[facility] Phone Number [facility] DEPARTMENT OF PATHOLOGY AND [address] [place] [address] [place] [address] Gram stain (07/11/2019 3:15 PM CDT)Only the most recent of2 resultswithin the time period is included. Gram stain isolate Occasional WBC's [facility] No organisms seen HOSPITAL Comment: Specimen Information Specimen Source: Tissue Specimen Site: Arm: LEFT ARM FISTULA PUS SWAB FOR AEROBIC,ANAEROBIC,GRAM STAIN Specimen Tissue Performing Organization Address City/[facility]/Zipcode Phone Number [facility] DEPARTMENT OF PATHOLOGY AND [address] [place], [place] [address] [address] Anaerobic culture (07/11/2019 3:15 PM CDT) Anaerobic culture No anaerobic organisms isolated. KATHY TORRES SCIENTOLOGIST isolate Comment: HOSPITAL Specimen Information Specimen Source: Tissue Specimen Site: Arm: LEFT ARM FISTULA PUS SWAB FOR AEROBIC,ANAEROBIC,GRAM STAIN Specimen Tissue - Arm Performing Organization Address City/State/Zipcode Phone Number [facility] DEPARTMENT OF PATHOLOGY AND [address] [place] [phone] [facility] MEDICINE [facility] [address] [place] [address] Airway (07/11/2019 2:16 PM CDT) Narrative Performed At Rosette Naranjo CRNA 07/11/2019 2 :17 PM Airway Date/Time: 07/11/2019 1:57 PM Performed by: Rosetet Naranjo CRNA Authorized by: Duncan Fischer MD Location: OR Urgency: Elective Difficult Airway: Yes Anesthesiologist: Cliff Fischer MD Performed by: anesthesiologist Preoxygenated with 100% O2: Yes C-spine Precautions Maintained Throughou t: Yes Mask Ventilation: Not attempted Final Airway Type: Endotracheal airway Final Endotracheal Airway: ETT Technique Used: Direct laryngoscopy Devices/Methods Used in Placement: Int ubating stylet Insertion Site: Oral Blade Type: Banegas Laryngoscope Blade/Videolaryngoscope Bill de Size: 2 ETT Size (mm): 8.0 Measured from: Lips ETT to Lips (cm): 23 Placement Verified by: CO2 detection and direct visualization Modified RSI: Yes Number of Attempts at Approach: 1 ECG 12 lead (07/11/2019 11:04 AM CDT)Only the most recent of3 resultswithin the time period is included. Pathologist Sig nature Ventricular rate 69 [facility] MUSE Atrial rate 69 [facility] MUSE GA interval 220 [facility] M[facility] QRSD interval 186 [facility] M[facility] QT interval 480 [facility] M[facility] QTC interval 514 [facility] M[facility] P axis 1 61 [facility] M[facility] QRS axis 1 -31 [facility] M[facility] T wave axis 125 [facility] M[facility] EKG impression Electronic demand [facility] M[facility] pacing with 1st degree AV block-Left axis deviation-In automated comparison with ECG of 12-MAY-2019 00:14,-No significant change was found- Specimen Narrative Performed At This result has an attachment that is no t available. Performing Organization Address City/[facility] Phone Number [facility] [address] [place] [address] Basic metabolic panel (07/11/2019 11:00 AM CDT)Only the most recent of2 results within the time period is included. Pathologist Sig nature Sodium 144 135 - 148 mEq/L [facility] Potassium 4.0 3.5 - 5.0 mEq/L [facility] Chloride 105 98 - 112 mEq/L [facility] CO2 25 24 - 31 mEq/L [facility] Anion gap 14@ANIO 7 - 15 mEq/L [facility] BUN 94 (H) 8 - 23 mg/dL [facility] Creatinine 10.04 (H) 0.70 - 1.20 mg/dL [facility] Glucose 155 (H) 65 - 99 mg/dL [facility] Calcium 11.2 (H) 8.8 - 10.2 mg/dL [facility] Specimen Blood Performing Organization Address [facility] Phone Number [facility] DEPARTMENT OF PATHOLOGY [id number] [place] [address] X [phone] [place] [address] [facility] Anti Xa, unfractionated (05/13/2019 6:00 AM BRAND PROTECTION MANAGER)Only the most recent of4 resultswithin the time period is included. Anti Xa, <0.10Comment: U/mL [facility]ARD unfractionated Therapeutic Range: SCIENTOLOGIST [place] 0.30 - 0.70 U/mL [facility] Specimen Blood Performing Organization Address [facility]/Zipcode Phone Number [facility] DEPARTMENT OF PATHOLOGY [id number] [place] [address] X [address] [place] [address] [facility] Airway (05/12/2019 2:53 PM BRAND PROTECTION MANAGER) Narrative Performed At Rosette Naranjo CRNA 05/12/2019 2 :54 PM Airway Date/Time: 05/12/2019 2:46 PM Performed by: Rosette Naranjo CRNA Authorized by: Cristi Anderson MD Location: OR Urgency: Emergent Difficult Airway: No Anesthesiologist: Cristi Anderson MD Resident/HANDLE AND VENT MACHINE OPERATOR/AA: Rosette Naranjo CRNA Performed by: resident/HANDLE AND VENT MACHINE OPERATOR/AA Consent Cannot be Obtained Due to Urgenc y: Yes Verbal Consent Obtained: Yes Written Consent Obtained: Yes Consent Given By: Patient and spouse Risks and Benefits were Discussed: Yes Patient Identity Confirmed by: Verball y with patient and arm band Preoxygenated with 100% O2: Yes C-spine Precautions Maintained Throughou t: Yes Mask Ventilation: Not attempted Final Airway Type: Supraglottic airway Final LMA: I-Gel LMA Size: 5 Number of Attempts at Approach: 1 Troponin (05/12/2019 6:00 AM BRAND PROTECTION MANAGER)Only the most recent of4 resultswithin the time period is included. Troponin 0.126 (H) 0.000 - 0.040 TICO SCIENTOLOGIST Comment: ng/mL [facility] In patients suspected of having a myocardial infarctio n, along with all other appropriate clinical measures and actions includ ing ECG and other diagnostics as appropriate, measure Ultra TnI at 0 hrs and at 3 hrs. Myocardial infarction VERY LIKELY The 0 hr TnI level is > 0.10 ng/mL Myocardial infarction LIKELY The 0 hr TnI level is > 0.04 ng/mL and 3 hr level is i ncreased or decreased by at least 0.020 ng/mL Myocardial infarction VERY UNLIKELY Both the 0 hr and 3 hr TnI levels <= 0.04 ng/mL(within normal limits) OR 0 hr is > 0.04 ng/mL and 3 hr is increased OR decreased by less than 0.020 ng/mL Specimen Plasma specimen Performing [facility] Phone Number [facility] DEPARTMENT OF PATHOLOGY [address] [place] [address]. [place], [place] [address] AND GENOMIC MEDICINE [place] SCIENTOLOGIST [place] [facility] [address] [facility] [place] [address] HOSPITAL Magnesium level (05/12/2019 6:00 AM BRAND PROTECTION MANAGER) Pathologist Sig nature Magnesium 2.5 (H) 1.6 - 2.4 mg/dL [facility] AND [facility] Specimen Plasma specimen Performing Organization Address [facility] Phone Number [facility] DEPARTMENT OF PATHOLOGY [address] [place] [address]. [place] [address] AND [facility] SCIENTOLOGIST [place] [facility] [address] [facility] [place] [address] HOSPITAL XR Chest 1 Vw Portable (05/11/2019 4:14 PM BRAND PROTECTION MANAGER) Specimen Narrative Performed At EXAMINATION: XR CHEST 1 VW PORTABLE [facility] CLINICAL HISTORY: missed dialysis COMPARISON: 09/17/2018 IMPRESSION: Heart size appears prominent although this may be acce ntuated given portable technique. A right subclavian p acemaking device is stable. A small left-sided pleural effusion is present. Bibasi lar atelectasis is noted. There is no pulmonary edema. There is no signif icant right pleural effusion. There is no pneumothor ax. There are degenerative changes within th e thoracic spine. [facility]-[id number] Procedure Note Hm Interface, Radiology Results Incoming - 05/11/2019 4:18 PM BRAND PROTECTION MANAGER EXAMINATION: XR CHEST 1 VW PORTABLE CLINICAL HISTORY: missed dialysis COMPARISON: 09/17/2018 IMPRESSION: Heart size appears prominent although th is may be accentuated given portable technique. A right subclavian pacemaking device is stable. A small left-sided pleural effusion is p resent. Bibasilar atelectasis is noted. There is no pulmonary edema. There is no significant right pleural effusion. There is no pneumothorax. There are degenerative changes within th e thoracic spine. [facility]-[id number] Performing Organization Address [facility] Phone Number [facility] [address] [facility] [place] [address] B natriuretic peptide (05/11/2019 3:50 PM BRAND PROTECTION MANAGER) Pathologist Sig nature BNP 732 (H) 0 - 100 pg/mL [facility] Specimen Blood Performing Organization Address [facility]/Zipcode Phone Number [facility] DEPARTMENT OF PATHOLOGY [address] [place] [address], X [address] AND [facility] [address] [place] [address] X [address] [facility] Creatine kinase, total (CPK) (05/11/2019 3:50 PM BRAND PROTECTION MANAGER) Pathologist [facility] Creatine kinase 46 39 - 308 U/L [facility] AND [facility] Specimen Plasma specimen Performing Organization Address [facility] Phone Number [facility] DEPARTMENT OF PATHOLOGY [address] [place] [address], [place] [address] AND [facility] [address] [place] [address], X [address] [facility] ECG ED Preliminary Interpretation - Not an Order (05/11/2019 3:47 PM BRAND PROTECTION MANAGER) Narrative Performed At Hima Chambers MD 05/17/2019 1:03 AM ECG ED Preliminary Interpretation - Not an Order Performed by: Hima Chambers MD Authorized by: Hima Chambers MD ECG reviewed by ED Physician in the abse nce of a customer counter associate: yes Interpretation: Interpretation: abnormal Rate: ECG rate: 82 ECG rate assessment: normal Rhythm: Rhythm: paced Ectopy: Ectopy: none QRS: QRS axis: Normal QRS intervals: Wide ST segments: ST segments: Non-specific T waves: T waves: non-specific CRITICAL CARE (05/11/2019 3:47 PM BRAND PROTECTION MANAGER) Narrative Performed At Hima Chambers MD 05/17/2019 1:03 AM Critical Care Performed by: Hima Chambers MD Authorized by: Hima Chambers MD Critical care provider statement: Critical care time (minutes): 37 Critical care time was exclusive of: Separately b illable procedures and treating other patients Critical care was necessary to treat or prevent imminent or life-threatening deterioration of the fo llowing conditions: Arterial occlusion, anticoagulation, discussion w ith vascular surgeon. Critical care was time spent personal ly by me on the following activities: Development of treatment p amanda with patient or surrogate, evaluation of patient's response to cesar tment, examination of patient, obtaining history from patient or surrog ate, ordering and performing treatments and interventions, ordering and review of l aboratory studies, pulse oximetry, re-evaluation of patient 's condition, discussions with consultants, ordering and review of radiographic studi es and review of old charts after 12/05/2018 Insurance Payer Benefit Plan / Subscriber ID Effective Dates Phone Addre ss Type Group HUMANA MEDICARE HUMANA MEDICARE xxxxxxxxx 2017-Present PPO PPO/PFFS/ERS [facility] Advance Directives For more information, please contact: [phone] Type Date Recorded 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
--- NOTE | 2019-12-06 11:08 | RAD REPORT ---
EXAM DESCRIPTION: RAD - Chest Single View - 12/06/2019 10:59 am CLINICAL HISTORY: POST THORACENTISIS Chest pain. COMPARISON: Chest Single View dated 03/11/2019; Thoracentesis w/ US Guide dated 12/06/2019; Thorax Wo Con dated 11/15/2019 FINDINGS: Portable technique limits examination quality. Since the prior study, the left pleural effusion has reduced in size. Moderate bilateral pulmonary op acities persist suggesting mild pulmonary edema. Dual lead pacer device is present. The heart is mode rately enlarged in size. No postprocedure pneumothorax. IMPRESSION: No postprocedure pneumothorax.
--- NOTE | 2019-12-06 11:08 | RAD REPORT ---
EXAM DESCRIPTION: US - Thoracentesis w/ US Guide - 12/06/2019 10:29 am CLINICAL HISTORY: Pleural effusion. PL EFFUSION COMPARISON: No comparisons FINDINGS: Preoperative diagnosis: Left pleural effusion Post operative diagnosis: Same Conscious Sedation: None. Estimated blood loss: Minimal Specimens:A small volume of fluid was sent for requested lab studies. The patient was placed in the upright recumbent position and the left posterior chest wall was preppe d and draped in the usual sterile fashion. 1% Lidocaine was infiltrated into the soft tissues for lo rip anesthesia. Under sonographic guidance, a thoracentesis needle and 6 Tunisian catheter was advance d into the left pleural space. Approximately 1 liter yellow fluid was aspirated. Samples were sent to pathology for requested analysis. The patient tolerated the procedure without immediate complication and transferred to the recovery area in stable condition. IMPRESSION: Successful ultrasound-guided thoracentesis as detailed.
[2019-12-06 11:56] VITALS: BP 123/48; TEMP 98.1; O2SAT 94
[2019-12-06 12:14] VITALS: BMI 29.0
[2019-12-06 15:31] LABS: Appearance SLT. TURBID (CLEAR); Body Fluid Source PLEURAL; Color of fluid Orange (COLORLESS)
[2019-12-06 15:32] LABS: Body Fluid WBC 1080 /mm^3
== END 2019-12-06 12:00 | disposition home or self-care (01) ==
LOC: DS 08:25
PROVIDERS: ATTEND Internal Medicine
DX: J90 Pleural effusion, not elsewhere classified (principal); M41.35 Thoracogenic scoliosis, thoracolumbar region; Z88.0 Allergy status to penicillin
CPT/HCPCS: 32555; 36415; 71045; 87070; 88305; 89050

== ENCOUNTER 2020-05-06 05:52 | Emergency (ER) | payer OTHER ==
--- OUTSIDE RECORDS SUMMARY | 2020-05-06 05:56 | XMS REPORT | Clinical Summary ---
:1935 Author Organization [facility] Address [address] [place] [address] Care Team Providers Name Role Phone Wang [...] MD 09/01/2019 Hospital Encounter Radiology Jung Fischer t sandrita Joseph MD 09/01/2019 Pre-Admit Testing Pre-Admission Testing Sajan Elias Preop testing Appointment MD Marcelo (Primary Dx) 08/31/2019 Travel 08/17/2019 Travel 08/16/2019 Travel 07/11/2019 Anesthesia Event General Surgery Duncan Fischer MD Patel, Bhavika, FINE WIRE DRAWER 07/11/2019 Surgery General Surgery Omega Elias Excision [...] General Surgery Cristi Anderson MD Patel, Bhavika, FINE WIRE DRAWER 05/12/2019 Surgery General Surgery Ryan Soler LEFT UPPER MD Linda EXTREMITY AV G RAFT THROMBECTOMY, BALLOON ANGIOPLASTY AND STENT PLACEMENT 05/11/2019 Hospital Encounter General Internal Hima Chambers chial artery occlusion, left (HCC) (Primary Dx); - Medicine Tomasa Garcia, Elevated tr oponin 05/13/2019 Victor Hugo Hancock MD after 05/06/2019 Surgical History Surgery Date Site/Laterality Comments CREATION, AV FISTULA, USING GRAFT FISTULOGRAPHY, DIALYSIS SHUNT, 11/17/2017 Left P rocedure: ATTEMPTED AND DECLOTTING LEFT UPPER EXTRE MITY DECLOT; RIGHT IJ ELIA CATHETER PLACEMENT; Surg erendira: Rodolfo Harris MD; Location: [facility]; Service: Cardiothoracic; Laterality: Left ; Medical devices from this surgery are in the Implants section . INSERTION, CATHETER, CENTRAL 11/18/2017 Chest/Right Pro cedure: INSERTION OF VENOUS, TUNNELED, WITH PORT, KAIN NELED DIALYSIS WITH C-ARM FLUOROSCOPIC CATHETER , RIGHT CHEST; GUIDANCE Surgeon: Omega Elias MD; [facility]; Service: Vascul ar; Laterality: Righ t; INSERTION, REVISION, EXCISION 09/06/2018 Arm Upper/Left Pr ocedure: Left arm AVG CATHETER, HERO excision, Revisi on with new Accuseal gra ft; Surgeon: Omega Simpson MD; Location: [facility] ain OR; Service: Vascul ar; Laterality: Left ; Medical devices from this surgery are in the Implants section . CARDIAC ELECTROPHYSIOLOGY 09/16/2018 Right Proced ure: Pacemaker PROCEDURE insertion new or replacement; King rgeon: Timur Sherwood MD; Loc ation: [facility] Seconds Handler In vasive Location; Servi ce: Cardiovascular; Laterality: Righ t; Medical devices from this surgery are in the Implants section . THROMBECTOMY, AV GRAFT, WITH 05/12/2019 Arm Upper/Left Pro cedure: LEFT UPPER REVISION EXTREMITY AV GRA FT THROMBECTOMY, BA LLOON ANGIOPLASTY AND STENT PLACEMENT; Surg erendira: Ryan Soler MD; [facility]; Service: Vascul ar; Laterality: Left ; Medical devices from this surgery are in the Implants section . THROMBECTOMY, AV GRAFT, WITH 07/11/2019 Arm Upper/Left Pro cedure: Excision of REVISION left Upper Extre mity Fistula and Tunn eled Dialysis Cathete r Placement left c hest; Surgeon: Omega Simpson MD; [facility]; Service: Vascul ar; Laterality: Left ; Medical devices from this surgery are in the Implants section . NEPHRECTOMY 03/30/1986 - 03/29/1987 ORIF ANKLE FRACTURE CORONARY ANGIOPLASTY CARDIAC CATHETERIZATION 1996 an d 2001 both negative CIRCUMCISION CREATION, AV FISTULA 03/30/2013 - 03/29/2014 REVISION, ARTERIOVENOUS GRAFT, 09/08/2019 Arm Upper/Left P rocedure: LEFT UPPER WITH ANGIOGRAPHY EXTREMITY AV GR AFT CREATION , FISTU LOGRAM, ANGIOPLASTY BALL OON AND STENT; Surgeon: Omega Elias MD; Location: [facility] Main OR; Servic e: Vascular; Later ality: Left; Medical devices from this surgery are in the Implants section . Medical History Medical History Date Comments Hypertension Renal disorder Coronary artery disease Diabetes mellitus (HCC) Asthma Cancer (HCC) kidney cancer( Left) Type 2 diabetes mellitus (HCC) Glaucoma Renal insufficiency Renal failure Arthritis Anemia Depression Peptic ulceration Pacemaker 2019 st [address] Myocardial infarction (HCC) 2011 Sleep apnea Sleep apnea, obstructive Anxiety Wears reading eyeglasses Exercise tolerance finding 100 yards of walking every other day; no cp some sob Family History Medical History Relation Name Comments Depression Father Heart disease Father Hypertension Father Diabetes Mother Heart attack Mother Heart disease Mother Hypertension Mother Stroke Mother Relation Name Status Comments Father Mother Social History Tobacco Use Types Packs/Day Years Used Date Never Smoker Smokeless Tobacco: Never Used Alcohol Use Drinks/Week oz/Week Comments No Sex Assigned at Date Recorded Not on file Last Filed Vital Signs Vital Sign Reading [...] Health Maintenance Due Date Last Done Comments DIABETES: RETINAL EYE EXAM 10/01/1945 DIABETIC FOOT EXAM 10[birth year]01/1945 COVID-19 VACCINE (1 of 2) 1953 SHINGLES VACCINES (#1) 10/01/1987 65+ PNEUMOCOCCAL VACCINE (1 of 1 - PPSV23) 2002 INFLUENZA VACCINE 10/29/2019 Implants Implanted Type Area Experimental Rocketsled Mechanic Device Shelf Model / Identifier Expiration Serial / Date Lot Assurity Mri Dual - [id number] - [id number] Cardiac N/A: 12/28/2019 [id number] / Implanted: Qty: 1 on 09/16/2018 by Lety Sherwood MD at [facility] Pacemaker N/A [id number] / Generators [id number] Lead Pace Bipolar Is-1 Endocrdl 46cm - [id number] - [id number] C ardiac N/A: [facility] 04/29/20212087TC/46 / Implanted: Qty: 1 on 09/16/2018 by Lety Sherwood MD at [facility] Pacing Leads N/A [id number] / or Electrodes [id number] or Accessories Tendril Sts, Pacemaker Leads, Model - [id number] - [id number] Cardiac N/A: 05/27/202152 / Implanted: Qty: 1 on 09/16/2018 by Lety Sherwood MD at [facility] Pacing Leads N/A [id number] / or Electrodes [id number] or Accessories Catheter Hmodial Dura-Flow Prcrv Bsc Deb cheryl Pelbl Shth 28cm - [id number] - [id number] Central N/A: ANGIODYNAMICS 07/10/2020 [id number] / Implanted: Qty: 1 on 07/11/2019 by Omega Elias MD at [facility] Venous N/A INC 1111 / Catheters Stent Endoprosthesis Viabahn [id number] Hepbioactive W/Rm - [id number] Coronary N/A: W L GORE 08/23/2021 [id number] / Implanted: 05/12/2019 at [facility] (Quantity not on file) Stents N/A [id number] / [id number] Stent Endoprosthesis Viabahn [id number] Hepbioactive W/Rm - [id number] Coronary N/A: W L GORE 01/25/2022 [id number] / Implanted: 05/12/2019 at [facility] (Quantity not on file) Stents N/A [id number] / [id number] System Thrmbtmy Otw 6fr 50cm Angiojet Avx - [id number] Surgical N/A : BOSTON 07/21/2019 [id number] / Implanted: 11/17/2017 at [facility] (Quantity not on file) Im plants; N/A SCIENTIFIC ANITHA / Expanders; [id number] Extenders; Surgical Wires System Thrmbtmy Otw 6fr 50cm Angiojet Avx - [id number] Surgical N/A : [place] 07/21/2019 [id number] / Implanted: 11/17/2017 at [facility] (Quantity not on file) Im plants; N/A SCIENTIFIC ANITHA / Expanders; [id number] Extenders; Surgical Wires Kit Selnt Fibrin Humn Hms Surgy 5ml Evicel - [id number] Surgic al Left: ETHICON [id number] / Implanted: 09/06/2018 at [facility] (Quantity not on file) Implants ; Arm, / Expanders; Upper Extenders; Surgical Wires System Thrmbtmy Otw 6fr 50cm Angiojet Avx - [id number] Surgical N/A: [place]ON [id number] / Implanted: 05/12/2019 at [facility] (Quantity not on file) Im plants; N/A SCIENTIFIC ANITHA / Expanders; Extenders; Surgical Wires Stent Endprths Viabahn [id number] 7mm Heprn Bioactv Surf - [id number] - [id number] Surgical Left: W L GORE 12/29/2020 [id number] / Implanted: Qty: 1 on 09/08/2019 by Omega Elias MD at [facility] Stents Arm [id number] / [id number] Stent Endprths Viabahn [id number] 7mm Heprn Bioactv Surf - [id number] - [id number] Surgical Left: W L GORE 05/20/2022 [id number] / Implanted: Qty: 1 on 09/08/2019 by Omega Elias MD at [facility] Stents Arm [id number] / [id number] Graft Vasclr Propaten Stdwl Strtch 40cm 6mm - [id number] Vascula r Left: W L GORE 05/13/2022 [id number] / Implanted: 09/06/2018 at [facility] (Quantity not on file) Graft Arm, [id number] / Upper [id number] Graft Vasclr Acuseal 40cm 6mm - [id number] Vascular N/A: W L GOR E 02/06/2021 [id number] / Implanted: 09/06/2018 at [facility] (Quantity not on file) Graft N/A [id number] / [id number] Graft Vasclr Propaten Stdwl Strtch 40cm 6mm - [id number] Vascular N/A: W L GORE 04/01/2023 [id number] / Implanted: 09/09/2019 at [facility] (Quantity not on file) Graft N/A [id number] / [id number] Procedures Procedure Name Priority Date/Time Associated Comments Diagnosis OR AN ELECTIVE Routine 09/09/2019 12:10 Results f [...] are i n the results section. OR AN ELECTIVE Routine 07/11/2019 2:16 Results f [...] Routine 05/13/2019 12:03 Results for this PM DIGITAL CAMPAIGN SPECIALIST procedure are i n the results section. HEPATITIS B SURFACE AB, Routine 05/13/2019 8:10 Results for this QUANTITATIVE AM DIGITAL CAMPAIGN SPECIALIST procedure are i n the results section. HEPATITIS B SURFACE Routine 05/13/2019 8:10 Resu lts for this ANTIBODY AM DIGITAL CAMPAIGN SPECIALIST procedure are i n the results section. HEPATITIS B SURFACE Routine 05/13/2019 8:10 Resu lts for this ANTIGEN AM DIGITAL CAMPAIGN SPECIALIST procedure are i n the results section. ANTI XA, UNFRACTIONATED Routine 05/13/2019 6:00 Results for this AM DIGITAL CAMPAIGN SPECIALIST procedure are i n the results section. HC COMPLETE BLD COUNT Routine 05/13/2019 6:00 Re sults for this W/AUTO DIFF AM DIGITAL CAMPAIGN SPECIALIST procedure are i n the results section. HEMODIALYSIS Routine 05/12/2019 10:26 PM DIGITAL CAMPAIGN SPECIALIST POC GLUCOSE Routine 05/12/2019 7:43 Results for this PM DIGITAL CAMPAIGN SPECIALIST procedure are i n the results section. OR FL < 1 HOUR Routine 05/12/2019 6:51 Results f or this PM DIGITAL CAMPAIGN SPECIALIST procedure are i n the results section. POC GLUCOSE Routine 05/12/2019 6:01 Results for this PM DIGITAL CAMPAIGN SPECIALIST procedure are i n the results section. OR AN EMERGENT Routine 05/12/2019 2:53 Results f or this SUPRAGLOTTIC AIRWAY PM DIGITAL CAMPAIGN SPECIALIST procedur e are in the results section. POC GLUCOSE Routine 05/12/2019 8:10 Results for this AM DIGITAL CAMPAIGN SPECIALIST procedure are i n the results section. ESTIMATED GFR Timed 05/12/2019 6:00 Results fo r this AM DIGITAL CAMPAIGN SPECIALIST procedure are i n the results section. ANTI XA, UNFRACTIONATED Routine 05/12/2019 6:00 Results for this AM DIGITAL CAMPAIGN SPECIALIST procedure are i n the results section. MAGNESIUM LEVEL Timed 05/12/2019 6:00 Results for this AM DIGITAL CAMPAIGN SPECIALIST procedure are i n the results section. BASIC METABOLIC PANEL Timed 05/12/2019 6:00 Re sults for this AM DIGITAL CAMPAIGN SPECIALIST procedure are i n the results section. HC COMPLETE BLD COUNT Timed 05/12/2019 6:00 Re sults for this W/AUTO DIFF AM DIGITAL CAMPAIGN SPECIALIST procedure are i n the results section. TROPONIN Timed 05/12/2019 6:00 Results for this AM DIGITAL CAMPAIGN SPECIALIST procedure are i n the results section. TROPONIN Routine 05/12/2019 2:00 Results for this AM DIGITAL CAMPAIGN SPECIALIST procedure are i n the results section. TYPE AND SCREEN Routine 05/12/2019 12:30 Results for this AM DIGITAL CAMPAIGN SPECIALIST procedure are i n the results section. ANTI XA, UNFRACTIONATED Timed 05/12/2019 12:30 Results for this AM DIGITAL CAMPAIGN SPECIALIST procedure are i n the results section. ECG 12-LEAD Routine 05/12/2019 12:14 Results for this AM DIGITAL CAMPAIGN SPECIALIST procedure are i n the results section. POC GLUCOSE Routine 05/11/2019 9:36 Results for this PM DIGITAL CAMPAIGN SPECIALIST procedure are i n the results section. TROPONIN Timed 05/11/2019 7:25 Results for this PM DIGITAL CAMPAIGN SPECIALIST procedure are i n the results section. ECG 12-LEAD STAT 05/11/2019 4:15 Results for this PM DIGITAL CAMPAIGN SPECIALIST procedure are i n the results section. XR CHEST 1 VW PORTABLE STAT 05/11/2019 4:14 R esults for this PM DIGITAL CAMPAIGN SPECIALIST procedure are i n the results section. ANTI XA, UNFRACTIONATED STAT 05/11/2019 3:50 Results for this PM DIGITAL CAMPAIGN SPECIALIST procedure are i n the results section. ESTIMATED GFR STAT 05/11/2019 3:50 Results fo r this PM DIGITAL CAMPAIGN SPECIALIST procedure are i n the results section. PARTIAL THROMBOPLASTIN STAT 05/11/2019 3:50 R esults for this TIME (PTT) PM DIGITAL CAMPAIGN SPECIALIST procedure are i n the results section. PROTHROMBIN TIME WITH STAT 05/11/2019 3:50 Re sults for this INR PM DIGITAL CAMPAIGN SPECIALIST procedure are i n the results section. B NATRIURETIC PEPTIDE STAT 05/11/2019 3:50 Re sults for this PM DIGITAL CAMPAIGN SPECIALIST procedure are i n the results section. TROPONIN STAT 05/11/2019 3:50 Results for this PM DIGITAL CAMPAIGN SPECIALIST procedure are i n the results section. CREATINE KINASE, TOTAL STAT 05/11/2019 3:50 R esults for this (CPK) PM DIGITAL CAMPAIGN SPECIALIST procedure are i n the results section. COMPREHENSIVE METABOLIC STAT 05/11/2019 3:50 Results for this PANEL PM DIGITAL CAMPAIGN SPECIALIST procedure are i n the results section. HC COMPLETE BLD COUNT STAT 05/11/2019 3:50 Re sults for this W/AUTO DIFF PM DIGITAL CAMPAIGN SPECIALIST procedure are i n the results section. ECG ED PRELIMINARY Routine 05/11/2019 3:47 Resul ts for this INTERPRETATION PM DIGITAL CAMPAIGN SPECIALIST procedure are in the results section. OR CRITICAL CARE, E/M Routine 05/11/2019 3:47 Re sults for this 30-74 MINUTES PM DIGITAL CAMPAIGN SPECIALIST procedure are in the results section. after 05/06/2019 Results Airway (09/09/2019 12:10 PM CDT) Narrative Performed At Hina Landis MD 09/09/2019 12:11 PM Airway Date/Time: 09/08/2019 1:40 PM Performed by: Hina Landis MD Authorized by: Hina Landis MD Location: OR Urgency: Elective Difficult Airway: No Anesthesiologist: Hina Landis MD Resident/FINE WIRE DRAWER/AA: Clarice Uribe CRNA Performed by: resident/FINE WIRE DRAWER/AA Preoxygenated with 100% O2: Yes C-spine Precautions Maintained Throughou t: Yes Mask Ventilation: Not attempted Final Airway Type: Supraglottic airway Final LMA: I-Gel LMA Size: 5 Number of Attempts at Approach: 1 POC glucose (09/08/2019 3:19 PM CDT)Only the most recent of8 resultswithin the time period is included. Pathologist Sig nature POC glucose 157 (H) 65 - 99 mg/dL [facility] MIRANDA Comment: [facility] Tank Builder Helper Name: Boubacar Morgan Device ID: [id number] Specimen Blood Performing Organization Address City/State/ZIP Code Phon e Number [facility] DEPARTMENT OF PATHOLOGY [address] [facility] [place] [address] AND GENOMIC MEDICINE [facility] [address] [facility] X [address] HOSPITAL [place] < 1 Hour (09/08/2019 [...] seconds of fluoroscopy time. Performing Organization Address City/State/ZIP Code Phon e Number [facility] [address] [place] [address] POC panel 4 (09/08/2019 10:11 AM CDT)Only the most recent of2 resultswithin the time period is included. POC sodium 135 135 - 148 [facility] mmol/L [facility] POC potassium 3.8 3.5 - 5.0 [facility] mmol/L [facility] POC hematocrit 32 (L) 41 - 51 % [facility] POC glucose 127 (H) 65 - 99 mg/dL [facility] Comment: [place] Tank Builder Helper Name: [facility] Device ID: [id number] POC hemoglobin 10.9 (L) 14.0 - 18.0 [facility] g/dL [facility] Specimen Blood Performing Organization Address City/[facility]/ZIP [facility] Phon e Number [facility] DEPARTMENT OF PATHOLOGY [address] [facility] [address] AND GENOMIC MEDICINE [facility] [address] [facility] [address] HOSPITAL Estimated GFR (09/08/2019 10:07 AM CDT)Only the most recent of4 resultswithin the time period is included. Estimated GFR 10 (A) mL/min/1.73 [facility] Comment: m2 [place] Catergory Units Interpretation HOS PITAL G1 >=90 [...] published in 2014. Specimen Performing Organization Address [facility] Phon e Number [facility] DEPARTMENT OF PATHOLOGY [address] [facility] [place] [address] AND GENOMIC MEDICINE [facility] [address] [facility] [place] [address] [facility] Comprehensive metabolic panel (09/08/2019 10:07 AM CDT)Only the most recent of2 resultswithin the time period is included. Pathologist Sig nature Sodium 135 135 - 148 mEq/L [facility] Potassium 3.8 3.5 - 5.0 mEq/L [facility] Chloride 98 98 - 112 mEq/L [facility] CO2 25 24 - 31 mEq/L [facility] Anion gap 12@ANIO 7 - 15 mEq/L [facility] BUN 44 (H) 8 - 23 mg/dL [facility] Creatinine 5.12 (H) 0.70 - 1.20 [facility] mg/dL [facility] Glucose 133 (H) 65 - 99 mg/dL [facility] Calcium 9.9 8.8 - 10.2 [facility] mg/dL [facility] Protein 7.3 6.3 - 8.3 g/dL [facility] Albumin 3.5 3.5 - 5.0 g/dL [facility] A/G ratio 0.9 0.7 - 3.[address] [facility] Alkaline phosphatase 85 40 - 129 U/L [facility] AST 16 10 - 50 U/L [facility] ALT <5 (A) 5 - 50 U/L [facility] Total bilirubin 0.3 0.2 - 1.2 mg/dL [facility] Specimen Blood Performing Organization Address City/[facility] Phon e Number [facility] DEPARTMENT OF PATHOLOGY [address] [facility] X [address] AND GENOMIC [facility] [address] [facility] [place] [address] HOSPITAL XR Chest 2 Vw (09/01/2019 2:20 PM CDT) Specimen Narrative Performed At EXAMINATION: XR CHEST 2 VW [facility] CLINICAL HISTORY: Z01.818 Encounter for other [...] There is no pneumothorax. Bones are demineralized. [facility]-[id number] Procedure Note Hm Interface, Radiology Results Incoming [...] There is no pneumothorax. Bones are demineralized. [facility]-[id number] Performing Organization Address City/State/ZIP Code Phon e Number [facility] [address] [place] [address] ECG Pre/Post Op (09/01/2019 1:14 PM CDT) Pathologist Sig nature Ventricular rate 76 [facility] Atrial rate 76 [facility] OR interval 180 [facility] QRSD interval 206 [facility] QT interval 494 [facility] QTC interval 555 [facility] P axis 1 57 [facility] QRS axis 1 -26 [facility] T wave axis 129 [facility] EKG impression Electronic ventricular [facility] pacemaker-In automated comparison with ECG of 11-JUL-2019 11:04,-Previous ECG has undetermined rhythm, needs review- Specimen Narrative Performed At This result has an attachment that is no t available. Performing Organization Address City/State/ZIP Code Phon e Number [facility] [address] [place] [address] COVID-19 qualitative PCR (09/01/2019 12:41 PM CDT) Interpretation Negative results do not prec lude 2019-nCoV infection and should not be used as the sole basis for treatment or other patient management decisions. Negative results must be combined with clinical observations, patient history, and epidemiological [place] information. [facility] COVID-19 qualitative Not-Detected Not-Detecte [place] PCR result d [facility] COVID-19 qualitative See link below for [place] PCR PDF Lab [facility] ReportComment: Case HOSPITAL Number: [id number] Specimen Blood Performing Organization Address City/[facility] Phon e Number [facility] DEPARTMENT OF PATHOLOGY AND [address] [place], [place] [address] [facility] [address] [place] [address] [facility] Partial thromboplastin time, activated (09/01/2019 12:41 PM CDT)Only the most recent of3 resultswithin the time period is included. [facility] PTT 29.6 23.0 - 36.0 [facility] Comment: [facility] PTT therapeutic range for unfractionated heparin is HOSPITAL 61.0-112.0 seconds which corresponds to Anti-Xa 0.3-0.7 U/ml. Specimen Blood Performing Organization Address [facility] Phon e Number [facility] DEPARTMENT OF PATHOLOGY [address] [place] [address] Prothrombin time with INR (09/01/2019 12:41 PM CDT)Only the most recent of3 resultswithin the time period is included. [facility] Prothrombin time 13.3 11.5 - 14.5 [facility] INR 1.0 [place] Comment: [facility] International Normalized Ratio (INR) is a therapeu [facility] monitoring tool for patients who are stable on oral anticoagulant therapy. An INR of 2.0-3.0 is suggested for deep vein thrombosis/pulmonary embolism. Specimen Blood Performing Organization Address [facility] Phon e Number [facility] DEPARTMENT OF PATHOLOGY [id number] [place] [address] [address] CBC with platelet and differential (09/01/2019 12:41 PM CDT)Only the most recent of5 resultswithin the time period is included. WBC 8.0 4.5 - 11.0 k/uL [facility] RBC 3.50 (L) 4.40 - 6.00 [facility] m/uL [facility] HGB 10.9 (L) 14.0 - 18.0 [facility] g/dL [facility] HCT 34.5 (L) 41.0 - 51.0 % [facility] MCV 98.6 82.0 - 100.[address] [facility] MCH 31.1 27.0 - 34.[address] [facility] MCHC 31.6 31.0 - 37.0 [facility] g/dL [facility] RDW - SD 49.9 37.0 - 55.[address] [facility] MPV 9.6 6.9 - 11.[address] [facility] Platelet count 191 150 - 400 K/uL [facility] Nucleated RBC 0.00 /[address] [facility] Neutrophils 59.6 39.0 - 69.0 % [facility] Lymphocytes 24.9 (L) 25.0 - 45.0 % [facility] Monocytes 9.0 0.0 - 10.0 % [facility] Eosinophils 5.4 (H) 0.0 - 5.0 % [facility] Basophils 0.8 0.0 - 1.0 % [facility] Immature granulocytes 0.3 0.0 - 1.0 % [facility] Specimen Blood Performing Organization Address City/[facility] Code Phon e Number [facility] DEPARTMENT OF PATHOLOGY [address] [facility], [place] [address] AND GENOMIC MEDICINE [facility] [address] [facility] [place] [address] HOSPITAL Type and screen (09/01/2019 12:41 PM CDT)Only the most recent of3 resultswithin the time period is included. Pathologist Sig nature ABO grouping O [facility] Rh type POS [facility] Antibody screen (gel) NEG [facility] Specimen Blood Performing Organization Address City/[facility] Phon e Number [facility] DEPARTMENT OF PATHOLOGY [address] [place] [address] AND [facility] [address] [place] [address] [place] [address] Hemoglobin A1c (09/01/2019 12:41 PM CDT) [facility] Hemoglobin A1C 5.4 4.0 - 5.6 % [facility] Comment: [place] HbA1c cutoffs for diagnosing diabetes: HO SPITAL [...] 1 diabetes. Specimen Blood Performing Organization Address City/State/ZIP Code Phon e Number [facility] DEPARTMENT OF PATHOLOGY [address] [place] [address] X [facility] [facility] AND [address] Hepatitis B surface Ab, quantitative (07/12/2019 10:00 AM CDT)Only the most recent of2 resultswithin the time period is included. [facility] Hepatitis B surface <3.10 IU/L [facility] [...] to MMWR March 21, 2005/Vol. 54 (No. 16);-, and for healthcare workers refer to MMWR Feb/Vol. 62(No. 10);-19. Reference Interval: anti-HBs 9.99 IU/L or less ....... Negative 10.00 IU/L or greater .... Positive Results greater than 1,000.00 IU/L are reported as gre ater than 1,000.00 IU/L. This assay should not be used for blood donor screenin g, associated re-entry protocols, or for screening Human Cell, Tissues and Cellular and Tissue-Based Products (HCT/P) . Performed by [employer], [address] [place] [address] [email or web address], Pasquale Christopher MD, Lab. Director Specimen Serum Performing Organization Address City/[facility] Phon e Number [facility] [address] [place] [address] [facility] [address] [place] [address] Hepatitis B surface antibody (07/12/2019 10:00 AM CDT)Only the most recent of2 resultswithin the time period is included. Pathologist Sig [facility] Hepatitis B surface Non-reactive Non-reactive [facility] Specimen Blood Performing Organization Address [facility] Phon e Number [facility] DEPARTMENT OF PATHOLOGY AND [address] [place] [address] [address] [address] Hepatitis B surface antigen (07/12/2019 10:00 AM CDT)Only the most recent of2 resultswithin the time period is included. Pathologist Sig [facility] Hepatitis B surface Non-reactive Non-reactive [facility] Specimen Blood Performing Organization Address [facility] Phon e Number [facility] DEPARTMENT OF PATHOLOGY [address] [facility], X [address] AND GENOMIC MEDICINE [facility] [id number] [place] [address], X [address] [facility] Surgical pathology request (07/11/2019 3:29 PM CDT) Pathologist Salome [facility] DEPARTMENT OF PATHOLOGY AND GENOMIC MEDICINE Surgical pathology See link below [facility] DEPARTMENT OF report for PDF Lab PATHOLOGY AND Report GENOMIC MEDICINE Result status This is Final [facility] DEPARTMENT OF Report for PATHOLOGY AND [id number] GENOMIC MEDICINE Specimen Performing Organization Address City/[facility] Phon e Number [facility] DEPARTMENT OF PATHOLOGY [address] [facility], [place] [address] AND GENOMIC MEDICINE Aerobic culture (07/11/2019 3:15 PM CDT)Only the most recent of2 resultswithin the time period is included. Pathologist Salome Aerobic culture No growth after 3 days. [facility] IS isolate Comment: HOSPITAL Specimen Information Specimen Source: Tissue Specimen Site: Arm: LEFT ARM FISTULA PUS SWAB FOR AEROBIC,ANAEROBIC,GRAM STAIN Specimen Tissue - Arm Performing Organization Address City/[facility] Code Phon e Number [facility] DEPARTMENT OF PATHOLOGY AND [address] [place] [address] Gram stain (07/11/2019 3:15 PM CDT)Only the most recent of2 resultswithin the time period is included. Gram stain isolate Occasional WBC's [facility] No organisms seen HOSPITAL Comment: Specimen Information Specimen Source: Tissue Specimen Site: Arm: LEFT ARM FISTULA PUS SWAB FOR AEROBIC,ANAEROBIC,GRAM STAIN Specimen Tissue Performing Organization Address [facility] Phon e Number [facility] DEPARTMENT OF PATHOLOGY AND [address] [place] [address] Anaerobic culture (07/11/2019 3:15 PM CDT) Anaerobic culture No anaerobic organisms isolated. KATHY MIRANDA isolate Comment: HOSPITAL Specimen Information Specimen Source: Tissue Specimen Site: Arm: LEFT ARM FISTULA PUS SWAB FOR AEROBIC,ANAEROBIC,GRAM STAIN Specimen Tissue - Arm Performing Organization Address [facility] Phon e Number [facility] DEPARTMENT OF PATHOLOGY AND [address] [place] [address] Airway (07/11/2019 2:16 PM CDT) Narrative Performed At Rosette Naranjo CRNA 07/11/2019 2 :17 PM Airway Date/Time: 07/11/2019 1:57 PM Performed by: Rosette Naranjo CRNA Authorized by: Duncan Fischer MD [...] [facility] MUSE Atrial rate 69 [facility] MUSE OR interval 220 [facility] MUSE QRSD interval 186 [...] is no t available. Performing Organization Address City/[facility]/ZIP [facility] Phon e Number [facility] MUSE [address] [place] [address] Basic metabolic panel (07/11/2019 11:00 AM CDT)Only the most recent of2 results within the time period is included. Pathologist Sig nature Sodium 144 135 - 148 mEq/L [facility] Potassium 4.0 3.5 - 5.0 mEq/L [facility] Chloride 105 98 - 112 mEq/L [facility] CO2 25 24 - 31 mEq/L [facility] Anion gap 14@ANIO 7 - 15 mEq/L [facility] BUN 94 (H) 8 - 23 mg/dL [facility] Creatinine 10.04 (H) 0.70 - 1.20 mg/dL [facility] Glucose 155 (H) 65 - 99 mg/dL [facility] Calcium 11.2 (H) 8.8 - 10.2 mg/dL [facility] Specimen Blood Performing Organization Address City/State/ZIP Code Phon e Number [facility] DEPARTMENT OF PATHOLOGY [address] [facility] [address] AND GENOMIC MEDICINE [facility] [address] [facility] [place] [address] [facility] Anti Xa, unfractionated (05/13/2019 6:00 AM DIGITAL CAMPAIGN SPECIALIST)Only the most recent of4 resultswithin the time period is included. [facility] Anti Xa, <0.10Comment: U/mL [place] [facility] Therapeutic Range: [facility] 0.30 - 0.70 U/mL [facility] Specimen Blood Performing Organization Address City/State/ZIP Code Phon e Number [facility] DEPARTMENT OF PATHOLOGY [address] [facility] [address] AND GENOMIC MEDICINE [facility] [address] [facility] [phone] [place] [address] Airway (05/12/2019 2:53 PM DIGITAL CAMPAIGN SPECIALIST) Narrative Performed At Rosette Naranjo CRNA 05/12/2019 2 :54 PM Airway Date/Time: 05/12/2019 2:46 PM Performed by: Rosette Naranjo CRNA Authorized by: Cristi Anderosn MD Location: OR Urgency: Emergent Difficult Airway: No Anesthesiologist: Cristi Anderson MD Resident/FINE WIRE DRAWER/AA: Rosette Naranjo CRNA Performed by: resident/FINE WIRE DRAWER/AA Consent Cannot be Obtained Due to Urgenc [...] at Approach: 1 Troponin (05/12/2019 6:00 AM DIGITAL CAMPAIGN SPECIALIST)Only the most recent of4 resultswithin the time period is included. [facility] Troponin 0.126 (H) 0.000 - 0.040 [place] RUBEN Comment: ng/mL [facility] In patients suspected of having a myocardial [...] than 0.020 ng/mL Specimen Plasma specimen Performing Organization Address City/[facility] Phon e Number [facility] DEPARTMENT OF PATHOLOGY [address] [place] [address] AND GENOMIC MEDICINE [place] [address] HOSPITAL Magnesium level (05/12/2019 6:00 AM DIGITAL CAMPAIGN SPECIALIST) Pathologist [facility] Magnesium 2.5 (H) 1.6 - 2.4 mg/dL [facility] AND [facility] Specimen Plasma specimen Performing Organization Address [facility] Phon e Number [facility] DEPARTMENT OF PATHOLOGY [address] [place] [address] AND GENOMIC MEDICINE [address] XR Chest 1 Vw Portable (05/11/2019 4:14 PM DIGITAL CAMPAIGN SPECIALIST) Specimen Narrative Performed At EXAMINATION: XR CHEST [...] degenerative changes within th e thoracic spine. [facility]-[id number] Procedure Note Hm Interface, Radiology Results Incoming - 05/11/2019 4:18 PM DIGITAL CAMPAIGN SPECIALIST EXAMINATION: XR CHEST 1 VW PORTABLE CLINICAL [...] degenerative changes within th e thoracic spine. [facility]-[id number] Performing Organization Address City/[facility]/ZIP Code Phon e Number [facility] [address] [place] [address] B natriuretic peptide (05/11/2019 3:50 PM DIGITAL CAMPAIGN SPECIALIST) Pathologist Sig [place] BNP 732 (H) 0 - 100 pg/mL [facility] Specimen Blood Performing Organization Address [facility] Phon e Number [facility] DEPARTMENT OF PATHOLOGY [id number] [place] [address] [place] [address] AND GENOMIC MEDICINE [facility] [id number] [place] [address], [place] [address] [facility] Creatine kinase, total (CPK) (05/11/2019 3:50 PM DIGITAL CAMPAIGN SPECIALIST) Pathologist Sig [place] Creatine kinase 46 39 - 308 U/L [facility] AND [facility] Specimen Plasma specimen Performing Organization Address [facility]/ZIP Code Phon e Number [facility] DEPARTMENT OF PATHOLOGY [id number] [place] [address] [place] [address] AND [facility] MEDICINE [facility] [id number] [place] [address], [place] X [address] [facility] ECG ED Preliminary Interpretation - Not an Order (05/11/2019 3:47 PM DIGITAL CAMPAIGN SPECIALIST) Narrative Performed At Hima Chambers MD 05/17/2019 1:03 AM ECG ED Preliminary Interpretation - Not an Order Performed by: Hima Chambers MD Authorized by: Hima Chambers MD ECG reviewed by ED Physician in the abse nce of a assault amphibious vehicle officer: yes Interpretation: Interpretation: abnormal Rate: ECG rate: 82 ECG rate assessment: normal Rhythm: Rhythm: paced Ectopy: Ectopy: none QRS: QRS axis: Normal QRS intervals: Wide ST segments: ST segments: Non-specific T waves: T waves: non-specific CRITICAL CARE (05/11/2019 3:47 PM DIGITAL CAMPAIGN SPECIALIST) Narrative Performed At Hima Chambers MD 05/17/2019 [...] es and review of old charts after 05/06/2019 Insurance Payer Benefit Plan / Subscriber ID Effective Dates Phone Addre ss Type Group HU[employer]NA MEDICARE HU[employer]NA MEDICARE [id number] 2017-Present PPO PPO/PFFS/ERS [facility] Advance Directives For more information, please contact: [phone] Type Date Recorded Patient Dental Technology Advisor Explanati on Advance Directives, Living Will 07/11/2019 9:35 AM and Medical Power of Certified Athletic Trainer
--- OUTSIDE RECORDS SUMMARY | 2020-05-06 05:57 | XMS REPORT | Continuity of Care Document ---
:1935 Author Organization [facility] t Address [address] [place] [address] Care Team Providers Name Role Phone Jose CHRISTIAN, Jeffrey Primary Care Physician Bethanie Elias MD. Attending Clinician Boby CHRISTIAN V. Attending Clinician Edmund ZAYAS Attending Clinician Jake Fischer MD Attending Clinician Jeffrey Garcia MD Attending Clinician Jose A CAIN Attending Clinician Linda Soler MD Attending Clinician Alex Attending Clinician Unavailable Tomasa Chambers MD Attending Clinician [phone] Beau Emery MD Attending Clinician Jose Anderson MD Attending Clinician KENY Admitting Clinician Unavailable AJ Admitting Clinician Unavailable Payers Payer Name Policy Type Policy Effective Date Expiration Date Sour ce Number HUMANA [id number] 2017 [place] MEDICAREHUMANA 00:00:00 [facility] MEDICARE PPO/PFFS/ERS [id number] 2017 -PresentPPO Problems Condition Condition Condition Status Onset Resolution Last Treating Co mments Source Name Details Category Date Date Treatment Clinician Date 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 [facility] renal renal 00:00: st disease) disease) 00 on on dialysis dialysis 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, occlusion, 00:00: st left left 00 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 2-12 [facility] dialysis dialysis 00:00: st AV graft AV graft 00 AV fistula AV fistula Disease Active 2019- [place] infection infection 6-07 Meth alyson 00:00: st 00 Arterioven Arterioven Disease Active 2018 [place] ous ous 8-20 [facility] fistula fistula 00:00: st occlusion occlusion 00 Allergies, Adverse Reactions, Alerts Allergy Allergy Status Severity Reaction(s) Onset Inactive Treating Comm ents Source Name Type Date Date Clinician Latex Propensi Active Hives Blisterin [place] on ty to 2-12 g [facility] adverse 00:00: st reaction 00 s to drug Adhesive Propensi Active Itching, 2019 blisters [place] Tape-Nellie ty to Other (See 6-17 Meth alyson icones adverse Comments) 00:00: st reaction 00 s to drug Penicill Propensi Active Itching, [place] ins ty to Swelling 8-20 [facility] adverse 00:00: st reaction 00 s to drug Family History Family Member Diagnosis Comments Start Date Stop Date Source [facility] Natural father Hypertension [facility] Natural mother Diabetes [facility] thodist Natural mother Heart attack [facility] Natural mother Heart disease [place] [facility] Natural mother Hypertension [facility] Natural [facility] Social History Social Habit Start Date Stop Date Quantity Comments Source Sex Assigned At [facility] ethodi Tobacco use and 2019-09-09 2019-09-09 Never used [facility] ethodist exposure 00:00:00 00:00:00 Alcohol intake 2019-09-09 2019-09-09 Current [facility] thodist 00:00:00 00:00:00 non-drinker of alcohol (finding) Smoking Status Start Date Stop Date Source Never smoker [facility] Medications Ordered Filled Start Stop Current Ordering Indication Dosage Frequency Signature Comments Components Source Medication Medication Date Date Medication? Clinician (SIG) Name Name terazosin 2020-0 Yes 10mg Q.5D Take 10 mg Ho ra[place] (HYTRIN) 10 6-11 by mouth 2 Me thodi MG capsule 17:30: (two) st 43 times a day. gabapentin 2020-0 Yes 300mg QD Take 300 [place] (NEURONTIN) 6-11 mg by [facility] 300 mg 17:30: mouth st capsule 43 daily. lanthanum 2020-0 Yes 1000mg Q.[id number] Chew 1,000 [place] (FOSRENOL) 6-11 [id number] mg 3 Met hodi 1000 MG 17:30: [...] 500 MG tablet acetaminoph 2020-0 Yes 500mg Q.31560743 Take 500 [place] en 6-11 [id number] mg by Methodi (TYLENOL) 17:30: 3D mouth 3 st 500 MG 43 (three) tablet times a day as needed for mild pain (FOR BACK AND HIP PAIN). Saccharomyc 2020-0 Yes 250mg QD Take 250 [place] es 6-11 mg by Methodi boulardii 17:30: mouth st (FLORASTOR) 43 daily. 250 mg capsule diphenhydrA 2019-0 Yes 25mg Q6H Take 25 mg [place] MINE 09-07 by mouth Method[facility] (BenadryL) 17:30: every 6 st 25 mg 43 (six) capsule hours as needed for itching. cholecalcif 2020-0 Yes QD Take by Kadie guy xenia, 09-07 mouth Methodi vitamin D3, 17:30: daily. st (VITAMIN D3 43 ORAL) acetaminoph 2019- 2020- No acute pain 1{tbl} Q4H Take 1 [place] en-codeine 09-07 tablet by Met ac (TYLENOL 00:00: 23:[address] WITH 00 :00 every 4 CODEINE #3) (four) 300-30 mg hours as per tablet needed for moderate pain for up to 7 days .acute pain. traMADol-ac 2020- No acute pain 1{tbl} QD Take 1 [place] etaminophen 08-31 tablet by Me chilel (ULTRACET) 12:17: 00:[address] 37.5-325 mg 06 :00 nightly per tablet .acute pain. calcium 2019- 2020- No 1{tbl} Q.5D Take 1 [place] on citrate-vit 08-31 tablet by Me chilel fried D3 12:15: 00:[address] (CITRACAL+D 31 :00 (two) ) 315-200 times a mg-unit per day. tablet vancomycin 2019- 2020- No 1000mg Q.21261341 Infuse [place] 1,000 mg in 07-12 [id number] 1,000 mg [facility] sodium 00:00: 23:[address] chloride 00 :00 venous 0.9% 250 mL catheter 3 IVPB (three) times a week for 14 days. aspirin 2019-0 2020- No 81mg QD Take 81 mg Kadie guy (ECOTRIN) 05-11 by mouth Metho di 81 MG 17:08: 00:[address] enteric 32 :00 coated tablet Vital Signs Vital Name Observation Time Observation Value Comments Source Systolic blood 2019-09-08 17:15:00 135 mm[Hg] Xander delgado [facility] pressure Diastolic blood 2019-09-08 17:15:00 65 mm[Hg] Stefany on [facility] pressure Heart rate 2019-09-08 17:15:00 67 /min Dell Duarte Respiratory rate 2019-09-08 17:15:00 16 /min David yovani [facility] Oxygen saturation in 2019-09-08 17:15:00 96 /min Dell Duarte Arterial blood by Pulse oximetry Body temperature 2019-09-08 16:30:00 36.22 Marilee David ton [facility] Body height 2019-09-08 09:59:00 182.9 cm Dell Duarte Body weight 2019-09-08 09:59:00 112.038 kg Dell Duarte BMI 2019-09-08 09:59:00 33.50 kg/m2 Dell Duarte Procedures Procedure Date / Time Performing Clinician Source Performed IA AN ELECTIVE 2019-09-09 12:10:59 Hina Landis SUPRAGLOTTIC [...] Omega Elias HEMOGLOBIN A1C 2019-09-01 12:41:00 Dell Fischer. HEMODIALYSIS 2019-07-12 13:25:48 Issac Jen [place] Meth odist HEPATITIS B SURFACE 2019-07-12 10:00:00 Jen Davenport ANTIGEN HEPATITIS B SURFACE AB, 2019-07-12 10:00:00 Issac Jen David ton [facility] QUANTITATIVE HEMODIALYSIS 2019-07-12 09:13:48 Jen Davenport POC GLUCOSE 2019-07-11 17:22:00 Omega Elias POC GLUCOSE 2019-07-11 15:29:00 Omega Elias SURGICAL PATHOLOGY REQUEST 2019-07-11 15:29:00 Omega Elias ANAEROBIC CULTURE 2019-07-11 15:15:00 Omega Elias n [facility] AEROBIC CULTURE 2019-07-11 15:15:00 Omega Elias GRAM STAIN 2019-07-11 15:15:00 Omega Elias OR FL < 1 HOUR 2019-07-11 15:08:01 Omega Elias AEROBIC CULTURE 2019-07-11 15:08:00 Omega Elias GRAM STAIN 2019-07-11 15:08:00 Omega Elias IA AN ELECTIVE 2019-07-11 14:16:22 Rosette Naranjo ENDOTRACHEAL AIRWAY POC PANEL 4 2019-07-11 11:11:00 Omega Elias ECG 12-LEAD 2019-07-11 11:04:36 Dell Fischer TYPE AND SCREEN 2019-07-11 11:00:00 Dell Fischer BASIC METABOLIC PANEL 2019-07-11 11:00:00 Xander Fischer HC COMPLETE BLD COUNT 2019-07-11 11:00:00 Xander Fischer W/AUTO DIFF Kalpesh Joseph PROTHROMBIN TIME WITH INR 2019-07-11 11:00:00 Milton Fischer PARTIAL THROMBOPLASTIN 2019-07-11 11:00:00 Stefany Fischer TIME (PTT) Kalpesh Joseph ESTIMATED GFR 2019-07-11 11:00:00 Dell Fischer POC GLUCOSE 2019-05-13 12:03:00 Orlin Emery ethodist HEPATITIS B SURFACE 2019-05-13 08:10:00 Jen Davenport ANTIGEN HEPATITIS B SURFACE AB, 2019-05-13 08:10:00 Jen Davenport QUANTITATIVE HC COMPLETE BLD COUNT 2019-05-13 06:00:00 Ryan Soler W/AUTO DIFF Ryder-Yelitza ANTI XA, UNFRACTIONATED 2019-05-13 06:00:00 Ryan Soler [facility] Cheng-Hsi HEMODIALYSIS 2019-05-12 22:26:09 Jen Davenport Meth odist POC GLUCOSE 2019-05-12 19:43:00 Orlin Emery ethodist OR FL < 1 HOUR 2019-05-12 18:51:47 Ryan Soler Meth odist Soler-Hsi POC GLUCOSE 2019-05-12 18:01:00 Orlin Emery ethodist IA AN EMERGENT 2019-05-12 14:53:11 Rosette Naranjo Meth odist SUPRAGLOTTIC AIRWAY POC GLUCOSE 2019-05-12 08:10:00 Orlin Emery ethodist TROPONIN 2019-05-12 06:00:00 Hima Chambers Meth odist Tomasa Garcia HC COMPLETE BLD COUNT 2019-05-12 06:00:00 Cindy Milligan [facility] W/AUTO DIFF Tajdin BASIC METABOLIC PANEL 2019-05-12 06:00:00 Cindy Milligan [facility] Tajdin MAGNESIUM LEVEL 2019-05-12 06:00:00 ChelCindy melgoza Vt thodist Tajdin ANTI XA, UNFRACTIONATED 2019-05-12 06:00:00 Hima Chambers Sangmarium Garcia ESTIMATED GFR 2019-05-12 06:00:00 ChelCindy melgoza Vt thodist Tajdin TROPONIN 2019-05-12 02:00:00 Orlin Emery ethodist ANTI XA, UNFRACTIONATED 2019-05-12 00:30:00 Hima Chambers TYPE AND SCREEN 2019-05-12 00:30:00 Orlin Emery ethodist ECG 12-LEAD 2019-05-12 00:14:04 Ryan Soler-Yelitza POC GLUCOSE 2019-05-11 21:36:00 Orlin Emery ethodist TROPONIN 2019-05-11 19:25:00 Hima Chambers ECG 12-LEAD 2019-05-11 16:15:59 Hima Chambers XR CHEST 1 VW PORTABLE 2019-05-11 16:14:06 Hima Chambers [facility] Sangmarium Garcia HC COMPLETE BLD COUNT 2019-05-11 15:50:00 Hima Chambers [facility] W/AUTO DIFF Sangmarium Garcia COMPREHENSIVE METABOLIC 2019-05-11 15:50:00 Hima Chambers [facility] PANEL Tomasa Garcia CREATINE KINASE, TOTAL 2019-05-11 15:50:00 Hima Chambers on [facility] (CPK) Sangmarium Garcia TROPONIN 2019-05-11 15:50:00 Hima Chambers B NATRIURETIC PEPTIDE 2019-05-11 15:50:00 Reyes, Hima Garcia PROTHROMBIN TIME WITH INR 2019-05-11 15:50:00 Hima Chambers PARTIAL THROMBOPLASTIN 2019-05-11 15:50:00 Hima Chambers [facility] TIME (PTT) Tomasa Garcia ESTIMATED GFR 2019-05-11 15:50:00 Hima Chambers odist Tomasa Garcia ANTI XA, UNFRACTIONATED 2019-05-11 15:50:00 Hima Chambers IA CRITICAL CARE, E/M 2019-05-11 15:47:17 Hima Chambersist 30-74 MINUTES Tomasa Garcia ECG ED PRELIMINARY 2019-05-11 15:47:17 Hima Chambers ethodist INTERPRETATION Tomasa Garcia Plan of Care Planned Activity Planned Date Details Comments Source Future Scheduled 2019-10-29 INFLUENZA VACCINE Xander delgado [facility] Test 00:00:00 [code = INFLUENZA VACCINE] Future Scheduled 2002 65+ PNEUMOCOCCAL Sharpe [facility] Test 00:00:00 VACCINE (1 of 1 - PPSV23) [code = 65+ PNEUMOCOCCAL VACCINE (1 of 1 - PPSV23)] Future Scheduled 1987-10-01 SHINGLES VACCINES (#1) [place] [facility] Test 00:00:00 [code = SHINGLES VACCINES (#1)] Future Scheduled 1953 COVID-19 VACCINE (1 of [place] [facility] Test 00:00:00 2) [code = COVID-19 VACCINE (1 of 2)] Future Scheduled 1947-10-01 DIABETES: RETINAL EYE Milton mcbride [facility] Test 00:00:00 EXAM [code = DIABETES: RETINAL EYE EXAM] Future Scheduled 1945-10-01 DIABETIC FOOT EXAM Stefany mitchell [facility] Test 00:00:00 [code = DIABETIC FOOT EXAM] Encounters Start End Encounter Admission Attending Care Care Encounter Source Date/Time Date/Time Type Type Clinicians Facility Department ID 2019-09-08 2019-09-08 Outpatient KENY [facility] [id number] [place] 00:00:00 00:00:00 IMRAN [address] 2019-09-01 2019-09-01 Outpatient KENY [facility] [id number] [place] 00:00:00 00:00:00 IMRAN [address] 2019-09-01 2019-09-01 Outpatient CARINE [facility] [id number] [place] 00:00:00 00:00:00 JOSEP, [address] 2019-07-11 2019-07-12 Inpatient JESUS GARCIA [facility] 021 [id number] [place] 00:00:00 00:00:[address] 2019-06-02 2019-06-02 Outpatient RYDER, [facility] [id number] [place] 00:00:00 00:00:00 RYAN 143 Method i 2019-05-11 2019-05-13 Inpatient AJ, [facility] [id number] [place] 00:00:00 00:00:00 ORLIN [address] Results Test Description Test Time Test Comments Results Result Sourc e Comments Airway 2019-08-29 Hina Landis V., Kadie guy 2 09/09/2019 12:11 Vt thodist 12:10:59 PMAirwayDate/Time: 09/08/2019 1:40 PMPerformed by: Hina Landis V., MDAuthorized by: Hina Landis MD Location: ORUrgency: ElectiveDifficult Airway: No Anesthesiologist: Hina Landis V., MDResident/CREDIT REPORTER/AA: Piedad Uribe CRNAPerformed by: resident/CREDIT REPORTER/AAPreoxy genated with 100% O2: Yes C-spine Precautions Maintained Throughout: Yes Mask Ventilation: Not attemptedFinal Airway Type: Supraglottic airwayFinal LMA: I-GelLMA Size: 5Number of Attempts at Approach: 1 POC glucose 2019-09-08 15:21:41 Test Item Value Reference Range Interpretation Comme nts POC glucose (test code = 78695-0) 157 mg/dL 65-99 H Instructor Modeling Name: Boubacar Munoztiaraaletha ID: [id number] Lab Interpretation (test code = Abnormal 99497-7) [place] [facility] [place] < 1 [id number] 15:18:06Hm Interface, Radiology Results 09/07/2020 3:21 PM CDTEXAMINATION: OR [place] < 1 HOURCLIN ICAL HISTORY: None provided.IMPRESSION:1. Fluoroscopy was provided in the operating. I was not present during the procedure.2. Please refer to the operative report for findings.3. Total Dose: 7 fluoroscopic images. 88.1 seconds of fluoroscopy time.Dell MethodistComprehensive metabolic panel 2019-09-08 10:50:56 Test Item Value Reference Range Interpretation Comments Sodium (test code = 2951-2) 135 135- 148 mEq/L Potassium (test code = 2823-3) 3.8 3.5- 5.0 mEq/L Chloride (test code = 2075-0) 98 98- 112 mEq/L CO2 (test code = 2027-9) 25 24- 31 mEq/L Anion gap (test code = 68421-1) 12@ANIO 7- 15 mEq/L BUN (test code = 3094-0) 44 mg/dL 8-23 H Creatinine (test code = 2160-0) 5.12 mg/dL 0.7-1.2 H Glucose (test code = 2345-7) 133 mg/dL 65-99 H Calcium (test code = 29586-4) 9.9 mg/dL 8.8-10.2 Protein (test code = 2885-2) 7.3 g/dL 6.3-8.3 Albumin (test code = 1751-7) 3.5 g/dL 3.5-5 A/G ratio (test code = 1759-0) 0.9 0.7-3.8 Alkaline phosphatase (test code = 85 U/L 40-129 6768-6) AST (test code = 1920-8) 16 U/L 10-50 ALT (test code = 1742-6) <5 5-50 A Total bilirubin (test code = 0.3 mg/dL 0.2-1.2 1974-) Lab Interpretation (test code = Abnormal 94858-9) Dell MethodistEstimated [id number] 10:50:56 Test Item Value Reference Range Interpretation Comments Estimated GFR (test 10 mL/min/1.73 m2 Lisandra gunn Units code = 5488) InterpretationG 1 >=90 Deidre l or highG2 60-89 Mildly decrease dG3a 45-59 Mil dly to moderately decr vqxafD8n 30-44 Moderately to s everely decreasedG4 15-29 Severe ly decreasedG5 <15 Kidney chinmay lureThe eGFR was calcul ated using the [facility] Kidney Disease Epidemiology Collaboration ( CKD-EPI) equation. Interpretation is based on recommendati ons of the [facility]-Kidn ey Disease Outcome s Quality Initiat reginald (NKF-KDOQI) pub lished in 2013. Lab Interpretation Abnormal (test code = 24855-8) [facility] panel [id number] 10:14:02 Test Item Value Reference Range Interpretation Comments POC sodium (test code = 135 mmol/L 365-332 5867-0) POC potassium (test 3.8 mmol/L 3.5-5 code = 6298-4) POC hematocrit (test 32 % 41-51 L code = 4544-3) POC glucose (test code 127 mg/dL 65-99 H Opera tor Name: = 2339-0) Nuñez Celia ID : [id number] POC hemoglobin (test 10.9 g/dL 14-18 L code = 718-7) Lab Interpretation Abnormal (test code = 20786-2) [facility] TylerCOVID-19 qualitative [id number] 01:09:13 Test Item Value Reference Range Interpretation Comments Interpretation (test Negative results do code = 2214755) not preclude 2019-nCoV infection and should not be used as the sole basis for treatment or other patient management decisions. Negative results must be combined with clinical observations, patient history, and epidemiological information. COVID-19 qualitative Not-Detected Not-Detected PCR result (test code = 34058-7) COVID-19 qualitative See link below for C ase Number: PCR (test code = PDF Lab Report [id number]) [place] MethodistType and [id number] 14:57:00 Test Item Value Reference Range Interpretation Comments ABO grouping (test code = 883-9) O Rh type (test code = 94135-5) POS Antibody screen (gel) (test code = NEG 890-4) Sharpe MethodistECG Pre/Post [id number] 14:30:21 Test Item Value Reference Range Interpretation Comments Ventricular rate (test 76 code = 253) Atrial rate (test code 76 = 255) IA interval (test code 180 = 266) QRSD [...] ECG has undetermined rhythm, needs review- Dell MethodistXR Chest 2 [id number] 14:22:54Hm Interface, Radiology Results Incoming - 09/01/2019 [...] There is no pneumothorax. Bones are demineralized. [facility]-[id number] MethodistHemoglobin [id number] 14:07:53 Test Item Value Reference Range Interpretation Comments Hemoglobin A1C (test 5.4 % 4-5.6 HbA1c c utoffs for code = 25835-3) diagnosing d iabetes:4.0% - 5.6% = normal 5.7% - 6.4% = increase d risk for diabetes (prediabetes)9> =6.5% = smsizool9Zmtbf for glycemic contro l (ADA 2016)< 7.0% Ta rget for non anoop lts with diabetes. More or less stringent targe ts may be appropriate for individual jr ents. <7.5% Target for Children and ad olescents with type 1 cathie betes. Dell MethodistPartial thromboplastin time, [id number] 14:02:44 Test Item Value Reference Range Interpretation Comments PTT (test code = 29.6 23.0- 36.0 sec PTT thera peutic range for 3173-2) unfractionated heparin is61.0-112.0 se conds which corresponds to Anti-Xa0.3-0.7 U/ml. Dell MethodistProthrombin time with [id number] 14:02:36 Test Item Value Reference Range Interpretation Comments Prothrombin time (test 13.3 11.5- 14.5 sec code = 5902-2) INR (test code = 1.0 The Interna tional 44407-0) Normalized Rati o (INR) is a therapeutic m onitoring tool for patien ts who are stable on oral anticoagulant t herapy. An INR of 2.0-3.0 is suggested for d eep vein thrombosis/pulm onary embolism. Sharpe MethodistCBC with platelet and [id number] 13:54:14 Test Item Value Reference Range Interpretation Comments WBC (test code = 21557-6) 8.0 4.5- 11.0 k/uL RBC (test code = 95555-5) 3.50 m/uL 4.4-6 L HGB (test code = 718-7) 10.9 g/dL 14-18 L HCT (test code = 4544-3) 34.5 % 41-51 L MCV (test code = 787-2) 98.6 fL 82-100 MCH (test code = 785-6) 31.1 pg 27-34 MCHC (test code = 786-4) 31.6 g/dL 31-37 RDW - SD (test code = 21038-2) 49.9 fL 37-55 MPV (test code = 23113-2) 9.6 fL 6.9-11 Platelet count (test code = 191 K/uL 150-400 89543-5) Nucleated RBC (test code = 82132-4) 0.00 /100 WBC Neutrophils (test code = 64640-4) 59.6 % 39-69 Lymphocytes (test code = 56165-9) 24.9 % 25-45 L Monocytes (test code = 24951-6) 9.0 % 0-10 Eosinophils (test code = 76205-2) 5.4 % 0-5 H Basophils (test code = 33206-7) 0.8 % 0-1 Immature granulocytes (test code = 0.3 % 0-1 18190-9) Lab Interpretation (test code = Abnormal 15170-1) [place] MethodistAnaerobic [id number] 13:18:32 Test Item Value Reference Range Interpretation Comments Anaerobic No anaerobic Specimen culture isolate organisms InformationS pecimen (test code = isolated. Source: TissueS pecimen 552) Site: Arm: LEFT ARM FISTULA PUS SWA B FOR AEROBIC,ANAEROB IC,GRAM STAIN [place] MethodistAerobic [id number] 20:47:24 Test Item Value Reference Range Interpretation Comments Aerobic culture No growth Specimen isolate (test after 3 days. InformationSp ecimen code = 498) Source: TissueS pecimen Site: Arm: LEFT ARM FISTULA PUS SWA B FOR AEROBIC,ANAEROB IC,GRAM STAIN [place] MethodistGram [id number] 20:47:24Gram stain isolateOccasional WBC'sNo organisms seen Comment: Specimen InformationSpecimen Source: Tis sueSpecimen Site: Arm: LEFT ARM FISTULA PUS SWAB FOR AEROBIC,ANAEROBIC,GRAM STAIN [facility] MethodistHepatitis B surface Ab, [id number] 18:23:57 Test Item Value Reference Range Interpretation [...] ers refer to MMWR February 282012/Vol. 62(No. 10);1-19 .Reference Interval: anti- HBs 9.99 IU/L or less .. ..... Uotikkgf16.00 I U/L or greater .... PositiveResults greater than 1,000.00 I U/L are reported as gre ater than 1,000.00 IU/L. This assay should not be u sed for blood donor scr eening, associated re-e ntry protocols, or f or screening Human Cell, Tis sues and Cellular and Ti ssue-Based Products (HCT/P ).Performed by [employer] [place],[address] [facility] [place], [place] [address] gsc .[employer] , Pasquale Christopher MD, Lab. Director [place] MethodistSurgical pathology [id number] 14:37:08 Test Item Value Reference Range Interpretation Comments Case number (test code = [id number]) Surgical pathology See link below for report (test code = PDF Lab Report 7182) Result status (test code This is Final Report = [id number]) for [id number] [place] MethodistHepatitis B surface [id number] 14:28:37 Test Item Value Reference Range Interpretation Comments Hepatitis B surface Ab (test Non-reactive Non-reactive code = 28374-2) [facility] HospitalistHepatitis B surface [id number] 11:13:37 Test Item Value Reference Range Interpretation Comments Hepatitis B surface Ag (test Non-reactive Non-reactive code = 5195-3) [place] [id number] 14:16:22PaRosette sagastume CRNA 07/11/2019 2:17 PMAirwayDate/Time: 07/11/2019 [...] of Attempts at Approach: 1[facility] MethodistBasic metabolic [id number] 12:07:29 Test Item Value Reference Range Interpretation Comments Sodium (test code = 2951-2) 144 135- 148 mEq/L Potassium (test code = 2823-3) 4.0 3.5- 5.0 mEq/L Chloride (test code = 2075-0) 105 98- 112 mEq/L CO2 (test code = 2028-9) 25 24- 31 mEq/L Anion gap (test code = 56010-9) 14@ANIO 7- 15 mEq/L BUN (test code = 3094-0) 94 mg/dL 8-23 H Creatinine (test code = 2160-0) 10.04 mg/dL 0.7-1.2 H Glucose (test code = 2345-7) 155 mg/dL 65-99 H Calcium (test code = 86206-3) 11.2 mg/dL 8.8-10.2 H Lab Interpretation (test code = Abnormal 11532-9) Dell MethodistECG 12 [id number] 11:52:23 Test Item Value Reference Range Interpretation Comments Ventricular rate (test 69 code = 253) Atrial rate (test code 69 = 255) IA interval (test code 220 = 266) QRSD [...] of 12-MAY-2019 00:14,-No significant change was found- Dell MethodistAnti Xa, [id number] 06:49:10 Test Item Value Reference Range Interpretation Comments Anti Xa, unfractionated <0.10 U/mL Ther apeutic Range: (test code = 3274-8) 0.30 - 0.70 U/mL Dell [id number] 14:53:11Rosette Naranjo CRNA 05/12/2019 2:54 PMAirwayDate/Time: 05/12/2019 2:46 PMPerformed by: Rosette Naranjo CRNAAuthorized by: Cristi Anderson MD Location: ORUrgency: EmergentDifficult Airway:No Anesthesiologist: Cristi Anderson, ALEXISesident/CREDIT REPORTER/AA: Rosette Naranjo CRNAPerformed by: resident/CREDIT REPORTER/AAConsent Cannot be Obtained Due to Urgency: Yes Verbal Consent Obtained: Yes Written Consent Obtained: Yes Consent Given By: Patient and spouseRisks and Benefits were Discussed: Yes Patient Identity Confirmed by: Verbally with patient and arm bandPreoxygenated with 100% O2: Yes C-spine Precautions Maintained Throughout: Yes Mask Ventilation: Not attemptedFinal Airway Type:Supraglottic airwayFinal LMA: I-GelLMA Size: 5Number of Attempts at Approach: 1[facility] EpiscopalianMagnesium [id number] 07:22:35 Test Item Value Reference Range Interpretation Comments Magnesium (test code = 82820-2) 2.5 mg/dL 1.6-2.4 H Lab Interpretation (test code = Abnormal 57359-1) [place] [id number] 06:53:30 Test Item Value Reference Range Interpretation Comments Troponin (test code = 0.126 ng/mL 0-0.04 H In [facility] ients 54226-0) suspected of waggoner ving a myocardial infarction, [...] ----- Ihsan cardi al infarction V ABDIRASHID UNLIKELYBoth th e 0 hr and 3 hr TnI levels <= 0.04 ng/mL(within no rmal limits) OR 0 hr is > 0.04 ng/mL and 3 hr is increased OR decreased by le ss than 0.020 ng/m L Lab Interpretation Abnormal (test code = 63619-2) [place] [facility]alta [facility] hospitalB natriuretic [id number] 16:45:35 Test Item Value Reference Range Interpretation Comments BNP (test code = 94994-7) 732 pg/mL 0-100 H Lab Interpretation (test code = Abnormal 09766-4) [facility] HospitalistCreatine kinase, total (CPK)2019-05-11 16:38:27 Test Item Value Reference Range Interpretation Comments Creatine kinase (test code = 2157-6) 46 U/L 39-308 [facility] 1 Vw [id number] 16:15:44Hm Interface, Radiology Results 05/11/2019 4:18 PM [...] pneumothorax.There are degenerative changes within the thoracic spine.[id number] MethodistECG ED Preliminary Interpretation - Not an [id number] 15:47:17 Test Item Value Reference Range Interpretation Comments LAKE (test code = LAKE) Hima Chambers MD 05/17/2019 1:03 AM[facility] Preliminary Interpretation - Not an OrderPerformed by: Hima Chambers MDAuthorized by: Hima Chambers MD ECG reviewed by ED Physician in the absence of a dispatcher refinery: yes Interpretation: Interpretation: abnormal Rate: ECG rate: 82 ECG rate assessment: normal Rhythm: Rhythm: paced Ectopy: Ectopy: none QRS: QRS axis: Normal QRS intervals: WideST segments: ST segments: Non-specificT waves: T waves: non-specific Lab Interpretation Abnormal (test code = 50884-3) [facility]2020-02-12 15:47:17Hima Chambers MD 05/17/2019 1:03 AMCritical CarePerformed [...]
[2020-05-06] MEDS ORDERED: FUROSEMIDE 100 MG/10 ML VIAL IV ONE (06:21)
[2020-05-06 06:32] LABS: Absolute Lymphocytes (CBC) 1.4 K/uL (0.7-4.9); Basophils % 0.2 % (0-1.3); Hematocrit 17.3 % (39.6-49.0); Lymphocytes % 8.3 % (15.3-44.8); MPV 9.1 fL (7.6-11.3); RBC Red Blood Cell Count 1.91 M/uL (4.33-5.43)
[2020-05-06] MEDS ORDERED: NOREPINEPHRINE 4mg/D5W 250mL 4 MG/250 ML BAG IV ONE (06:42)
[2020-05-06 06:43] LABS: Arterial Blood Carboxyhemoglob 1.4 % (0-1.5); Blood Gas Oxyhemoglobin 97.1 % (94-97)
[2020-05-06] MEDS ORDERED: PANTOPRAZOLE 40 MG INJ ONE ×2 (07:01→07:03)
[2020-05-06] MEDS ORDERED: NA CHLORIDE 0.9% 250 ML ONE ×2 (07:03→07:31)
[2020-05-06 07:14] LABS: Albumin 2.3 g/dL (3.4-5.0); Bilirubin Direct 0.1 mg/dL (0-0.2); Bilirubin Total 0.2 mg/dL (0.2-1.0); Magnesium 2.3 mg/dL (1.8-2.4); Potassium 5.3 mmol/L (3.5-5.1); Protein, Total 5.8 g/dL (6.4-8.2); Troponin (Emerg Dept Use Only) 0.07 ng/mL (0.0-0.045)
[2020-05-06 07:20] LABS: Protime INR 1.28
--- NOTE | 2020-05-06 07:23 | EDPHYS ---
Physician Documentation [facility] Name: Catrachito Blanco Age: 84 yrs Sex: Male : 1935 Arrival Date: 05/06/2020 Time: 05:56 Bed 3 Private MD: ED Physician Rom Romero HPI: 05/06 06:45 This 84 yrs old Male presents to ER via EMS with complaints of Breathing mh7 Difficulty. 06:45 The patient has shortness of breath at rest. Onset: The symptoms/episode began/occurred mh7 2 day(s) ago. Duration: The symptoms are continuous, and are steadily getting worse. The patient's shortness of breath is aggravated by nothing, is alleviated by nothing. 06:47 Associated signs and symptoms: Pertinent positives: black stool, Pertinent negatives: mh7 chest pain, non-productive cough, productive cough, diaphoresis, dizziness, fever, hemoptysis, loss of consciousness, nausea, numbness in extremities, visual changes, vomiting. Severity of symptoms: At their worst the symptoms were moderate last night, in the emergency department the symptoms are unchanged. Historical: - Allergies: 05:57 Adhesives; rr5 05:57 PENICILLINS; rr5 - PMHx: 05:57 Depression; Diabetes - NIDDM; Dialysis; ESRD; Hypertension; renal cell carcinoma 1986; rr5 - Immunization history:: Adult Immunizations unknown. - Social history:: Smoking status: unknown. ROS: 06:47 Constitutional: Negative for fever, chills, and weight loss, Eyes: Negative for injury, mh7 pain, redness, and discharge, ENT: Negative for injury, pain, and discharge, Neck: Negative for injury, pain, and swelling, Cardiovascular: Negative for chest pain, palpitations, and edema, Back: Negative for injury and pain, : Negative for injury, bleeding, discharge, and swelling, MS/Extremity: Negative for injury and deformity, Skin: Negative for injury, rash, and discoloration, Neuro: Negative for headache, weakness, numbness, tingling, and seizure, Psych: Negative for depression, anxiety, suicide ideation, homicidal ideation, and hallucinations, Allergy/Immunology: Negative for hives, rash, and allergies, Endocrine: Negative for neck swelling, polydipsia, polyuria, polyphagia, and marked weight changes, Hematologic/Lymphatic: Negative for swollen nodes, abnormal bleeding, and unusual bruising. Exam: 06:55 Head/Face: Normocephalic, atraumatic. mh7 06:55 Neck: Trachea midline, no thyromegaly or masses palpated, and no cervical lymphadenopathy. Supple, full range of motion without nuchal rigidity, or vertebral point tenderness. No Meningismus. Chest/axilla: Normal chest wall appearance and motion. Nontender with no deformity. No lesions are appreciated. Cardiovascular: Regular rate and rhythm with a normal S1 and S2. No gallops, murmurs, or rubs. Normal PMI, no JVD. No pulse deficits. Respiratory: Lungs have equal breath sounds bilaterally, clear to auscultation and percussion. No rales, rhonchi or wheezes noted. No increased work of breathing, no retractions or nasal flaring. Abdomen/GI: Soft, non-tender, with normal bowel sounds. No distension or tympany. No guarding or rebound. No evidence of tenderness throughout. Back: No spinal tenderness. No costovertebral tenderness. Full range of motion. 06:55 Skin: Warm, dry with normal turgor. Normal color with no rashes, no lesions, and no evidence of cellulitis. MS/ Extremity: Pulses equal, no cyanosis. Neurovascular intact. Full, normal range of motion. Neuro: Awake and alert, GCS 15, oriented to person, place, time, and situation. Cranial nerves II-XII grossly intact. Motor strength 5/5 in all extremities. Sensory grossly intact. Cerebellar exam normal. Normal gait. 06:55 Psych: Awake, alert, with orientation to person, place and time. Behavior, mood, and affect are within normal limits. 06:55 Constitutional: The patient appears alert, awake, obviously ill. 06:55 Eyes: Periorbital structures: appear normal, Pupils: equal, round, and reactive to light and accomodation, Extraocular movements: intact throughout, Conjunctiva: pale, bilaterally, Sclera: no appreciated abnormality. 06:55 Abdomen/GI: Rectal exam: Stool: guaiac positive, black, hemorrhoid(s), are not appreciated. Vital Signs: 05:57 BP 80 / 29; Pulse 94; Resp 25; Temp 96.8; Pulse Ox 85% ; rr5 06:41 BP 76 / 42; Pulse 84; Resp 26; Pulse Ox 91% ; ea 06:58 BP 107 / 47; Pulse 74; Resp 27; Pulse Ox 100% on R/A; ea 07:08 Weight 90.72 kg; rr5 07:15 BP 89 / 47; Pulse 86; Resp 24; Temp 95.5; Pulse Ox 100% ; bp 08:00 BP 104 / 52; Pulse 83; Resp 26; Temp 95.3; Pulse Ox 100% ; bp Procedures: 06:55 Central Line: the site was prepped with in sterile fashion, a triple lumen catheter was mh7 inserted, in the right femoral vein, in 1 attempts. placement was verified, by blood return, the site was dressed with using sterile technique, the patient tolerated the procedure, well. MDM: 07:20 Differential diagnosis: Anemia Anxiety Reaction asthma, Bronchitis CHF exacerbation, mh7 Chronic Obstructive Pulmonary Disease Myocardial Infarction pneumonia, Pneumothorax Psychogenic pulmonary edema, reactive airway disease. Data reviewed: vital signs, nurses notes, EMS record, old medical records, lab test result(s), cardiac enzymes, CBC, electrolytes, EKG, radiologic studies, plain films. Data interpreted: Pulse oximetry: on BiPAP is 100 %. Interpretation: acceptable. Counseling: I had a detailed discussion with the patient and/or guardian regarding: the historical points, exam findings, and any diagnostic results supporting the discharge/admit diagnosis, lab results, radiology results, the need to transfer to another facility, for higher level of care, [facility] does not immediately have the required specialist. Response to treatment: the patient's symptoms have mildly improved after treatment. 07:22 Patient medically screened. 05/06 06:00 Order name: Basic Metabolic Panel; Complete Time: 08:25 05/06 06:00 Order name: CBC with Diff 05/06 06:00 Order name: LFT's; Complete Time: 08:25 [facility] 05/06 06:00 Order name: Magnesium; Complete Time: 08:25 05/06 06:00 Order name: NT PRO-BNP; Complete Time: 08:25 [facility] 05/06 06:00 Order name: PT-INR; Complete Time: 08:25 [facility] 05/06 06:00 Order name: Troponin (emerg Dept Use Only); Complete Time: 08:25 [facility] 05/06 06:01 Order name: Arterial Blood Gas; Complete Time: 06:53 [facility] 05/06 06:01 Order name: Type And Screen [facility] 05/06 06:08 Order name: Blood Culture Adult (2) [facility] 05/06 06:08 Order name: Lactate [facility] 05/06 06:08 Order name: Procalcitonin [facility] 05/06 06:08 Order name: Blood Culture [facility] 05/06 06:09 Order name: Lactate; Complete Time: 07:17 [facility] 05/06 06:00 Order name: XRAY Chest (1 view) [facility] 05/06 06:09 Order name: Procalcitonin; Complete Time: 08:25 [facility] 05/06 07:10 Order name: Urine Microscopic Only; Complete Time: 08:25 5 05/06 07:13 Order name: RBC Leukored Pheresis [facility] 05/06 07:51 Order name: Urine Culture [facility] 05/06 07:57 Order name: SARS-COV-2 RT PCR; Complete Time: 08:25 [facility] 05/06 08:15 Order name: ABO/RH no charge; Complete Time: 08:25 [facility] 05/06 06:00 Order name: EKG; Complete Time: 06:01 [facility] 05/06 06:00 Order name: Cardiac monitoring; Complete Time: 06:41 [facility] 05/06 06:00 Order name: EKG - Nurse/Tech; Complete Time: 06:41 [facility] 05/06 06:00 Order name: IV Saline Lock; Complete Time: 06:41 [facility] 05/06 06:00 Order name: Labs collected and sent; Complete Time: 06:41 [facility] 05/06 06:00 Order name: O2 Per Protocol; Complete Time: 06:41 7 05/06 06:00 Order name: O2 Sat Monitoring; Complete Time: 06:41 [facility] 05/06 06:53 Order name: Transfuse; Complete Time: 08:20 7 Administered Medications: 06:35 Drug: Norepinephrine (4 mg/250 mL D5W) 4 mcg/min Route: IV; Rate: calculated rate; ea Site: right femoral; 07:54 Follow up: IV Status: Infusion continued upon transfer bp 06:55 Drug: ProTONIX 8 mg/hr Route: IV; Rate: 25 ml/hr; Site: right forearm; ea 07:54 Follow up: IV Status: Infusion continued upon transfer bp 06:55 Drug: ProTONIX 80 mg Route: IVP; Site: right forearm; ea 07:54 Follow up: Response: No adverse reaction bp 06:55 CANCELLED (Duplicate Order): ProTONIX 8 mg/hr IV at 25 ml/hr continuous; (Standard ea dilution is 80 mg in 250 mL NS) 06:55 CANCELLED (Duplicate Order): ProTONIX 8 mg/hr IV at 25 ml/hr continuous; (Standard ea dilution is 80 mg in 250 mL NS) 07:12 Not Given (Physician Discretion): Lasix 60 mg IVP once jl7 07:30 Drug: NS 0.9% 500 ml Route: IV; Rate: bolus; Site: right femoral; bp 08:09 Follow up: IV Status: Infusion continued upon transfer bp 07:30 Drug: Flagyl 500 mg Volume: 100 ml; Route: IVPB; Rate: 200 ml/hr; Infused Over: 30 bp mins; Site: right femoral; 07:55 Follow up: IV Status: Infusion continued upon transfer bp 08:00 Follow up: IV Status: Completed infusion; IV Intake: 100ml bp 08:00 Drug: LevaQUIN 500 mg Volume: 100 ml; Route: IVPB; Infused Over: 60 mins; Site: right bp femoral; 08:09 Follow up: IV Status: Infusion continued upon transfer bp Disposition: 05/06/20 07:22 Transfer ordered to Other Acute Care Facility. Diagnosis are GI Bleed, Hypotension. - Reason for transfer: Higher level of care. - Accepting physician is Dr.Janae Mcgraw. - Condition is Critical. - Problem is new. - Symptoms have improved. Signatures: Dispatcher [employer] EDMS Jose Mason, Guillermo Francois RN, MD MD rn Antunez, Elena, RN RN ea Peltier, Brian RN Johana Urban Raymond RN RN rr5 Rom Romero MD MD 7 Madeline Goodman RN jl7 Corrections: (The following items were deleted from the chart) 06:48 06:45 Associated signs and symptoms: [place] [id number] 06:55 06:54 ProTONIX 8 mg/hr IV at 25 ml/hr continuous; (Standard dilution is 80 mg in 250 mL ea NS) ordered. [facility] 06:55 06:54 ProTONIX 8 mg/hr IV at 25 ml/hr continuous; (Standard dilution is 80 mg in 250 mL ea NS) ordered. ea 07:17 06:49 CORONAVIRUS+MR.LAB.BRZ ordered. [facility] EDHI 07:27 06:54 PACKED RBC LEUKORED -1+BB.LAB.BRZ ordered. [facility] EDMS 07:27 06:54 ABO/RH typing ordered. [facility] EDHI 07:27 06:54 Antibody Screen ordered. [facility] EDHI 07:28 07:13 ABO/RH typing ordered. [facility] EDHI 07:28 07:13 Antibody Screen ordered. [facility] EDHI 07:55 07:22 05/06/2020 07:22 Transfer ordered to Other Acute Care Facility. Diagnosis is GI eb Bleed; Hypotension. Reason for transfer: Higher level of care. Accepting physician is . Condition is Critical. Problem is new. Symptoms have improved. [facility] 08:28 07:55 05/06/2020 07:22 Transfer ordered to Other Acute Care Facility. Diagnosis is GI bp Bleed; Hypotension. Reason for transfer: Higher level of care. Accepting physician is Dr.Janae Mcgraw. Condition is Critical. Problem is new. Symptoms have improved. eb
--- NOTE | 2020-05-06 07:23 | ER ---
Nurse's Notes [facility] Name: Catrachito Blanco Age: 84 yrs Sex: Male : 1935 Arrival Date: 05/06/2020 Time: 05:56 Bed 3 Private MD: Diagnosis: GI Bleed;Hypotension Presentation: 05/06 05:57 Chief complaint: EMS states: complaints of difficulty of breathing and black stool rr5 started yesterday. O2 saturation 60's-80'S hooked to non rebreather went up to 100%. the said after the dialysis session last Thursday he became drowsy. Coronavirus screen: Client denies travel out of the [place] in the last 14 days. difficulty breathing, Client presents with at least one sign or symptom that may indicate coronavirus-19. Provider contacted for isolation considerations. Ebola Screen: Patient negative for fever greater than or equal to 101.5 degrees Fahrenheit, and additional compatible Ebola Virus Disease symptoms Patient denies exposure to infectious person. Patient denies travel to an Ebola-affected area in the 21 days before illness onset. Initial Sepsis Screen: Does the patient meet any 2 criteria? RR > 20 per min. Systolic BP < 90 mmHg. Mean Arterial Pressure (MAP) < 65. HR > 90 bpm. Does the patient have a suspected source of infection? Yes: Productive cough/pneumonia If YES to both, name of provider notified: Rom Romero MD. Risk Assessment: Do you want to hurt yourself or someone else? Patient reports no desire to harm self or others. Onset of symptoms was May 06, 2020. 05:57 Method Of Arrival: EMS: [facility] rr5 05:57 Acuity: CHARU 2 rr5 Triage Assessment: 07:00 General: Appears distressed, uncomfortable, Behavior is cooperative, appropriate for bp age, agitated, anxious. Respiratory: Reports shortness of breath Onset: The symptoms/episode began/occurred this morning, the patient has severe shortness of breath. Historical: - Allergies: 05:57 Adhesives; rr5 05:57 PENICILLINS; rr5 - PMHx: 05:57 Depression; Diabetes - NIDDM; Dialysis; ESRD; Hypertension; renal cell carcinoma 1986; rr5 - Immunization history:: Adult Immunizations unknown. - Social history:: Smoking status: unknown. Screenin:05 Abuse screen: Denies threats or abuse. Denies injuries from another. Nutritional rr5 screening: No deficits noted. Tuberculosis screening: No symptoms or risk factors identified. Fall Risk IV access (20 points). Mental Status- Overestimates/Forgets Limitations (15 pts.). Total Fabian Fall Scale indicates Low Risk Score (25-44 pts). Fall prevention measures have been instituted. Side Rails Up X 2 Placed close to Nursing Station Frequent Obs/Assesments occuring As available Patient and Family Educated on Fall Prevention Program and strategies. Assessment: 06:04 General: Appears uncomfortable, Behavior is anxious, restless. Pain: Denies pain. ea Neuro: Level of Consciousness is awake, alert, obeys commands, Oriented to person, place, time, situation. Cardiovascular: Patient's skin is warm and dry. Respiratory: Airway is patent Respiratory effort is labored, Respiratory pattern is tachypnea. GI: EMS noted pt stool has been black. Derm: Skin is pale, Skin temperature is warm. 06:04 Cardiovascular: Dialysis shunt: in the left arm, with palpable thrill. rr5 06:05 Reassessment: Pt placed on BiPAP. ea 06:55 Reassessment: spoke to son mary [phone] explained the plan of BT, agreed for the rr5 transfusion and gave consent thru phone witness by jose FUENTES. 07:00 Reassessment: RECD REPORT FROM JUAN FUENTES. 84YO WM P/W SOB AND TARRY STOOLS FROM HOME bp VIA EMS. PT ON BIPAP, 85% ON ROOM AIR. R FEM CVC PLACED, NOR-EPI INFUSING AT 2 MCG/MIN. JEAN BAPTISTE IN PLACE. TRANSFER PENDING. Cardiovascular: Rhythm is sinus rhythm. Respiratory: Breath sounds are coarse bilaterally. 07:15 Reassessment: 1ST UNIT PRBC, UNCROSSMATCHED O NEG, STARTED. bp 07:30 Reassessment: NOR-EPI GTT TO 4 MCG/MIN. bp 07:45 Reassessment: REPORT TO DEANGELO FUENTES AT [facility] ER. FLIGHT TRANSPORT EN ROUTE. bp 08:16 Reassessment: LIFE FLIGHT AT B/S FOR TRANSPORT. bp Vital Signs: 05:57 BP 80 / 29; Pulse 94; Resp 25; Temp 96.8; Pulse Ox 85% ; rr5 06:41 BP 76 / 42; Pulse 84; Resp 26; Pulse Ox 91% ; ea 06:58 BP 107 / 47; Pulse 74; Resp 27; Pulse Ox 100% on R/A; ea 07:08 Weight 90.72 kg; rr5 07:15 BP 89 / 47; Pulse 86; Resp 24; Temp 95.5; Pulse Ox 100% ; bp 08:00 BP 104 / 52; Pulse 83; Resp 26; Temp 95.3; Pulse Ox 100% ; bp ED Course: 05:56 Patient arrived in ED. rr5 06:00 Rom Romero MD is Attending Physician. mh7 06:00 EKG done, by ED staff, reviewed by Rom Rmoero MD. rr5 06:00 O2 via CPAP. rr5 06:00 Inserted saline lock: 22 gauge in right forearm, using aseptic technique. Blood ea collected. 06:00 Initial lab(s) drawn, by me, sent to lab. First set of blood cultures drawn by me. sg 06:00 Patient has correct armband on for positive identification. Placed in gown. Bed in low rr5 position. Call light in reach. Side rails up X2. nurse monitoring on. Pulse ox on. NIBP on. 06:00 Warm blanket given. rr5 06:00 Patient placed in an exam room, on a stretcher, on oxygen, on cardiac technologist, on pulse ea oximetry. 06:07 Triage completed. rr5 06:15 Assisted provider with central line placement. Set up central line tray. Triple lumen ea line placed in right femoral. Line placed by Rom Romero MD Placement verified by blood return, Dressed with Tegaderm, Blood was collected. Patient tolerated well. 06:15 Second set of blood cultures drawn by me. sg 06:21 Juan Golden, RN is Primary Nurse. rr5 06:22 Response to oxygen therapy: symptoms improved. rr5 06:30 Jean Baptiste cath inserted, using sterile technique, 16 Fr., by me, balloon inflated, urine rr5 specimen collected. 06:39 XRAY Chest (1 view) In Process Unspecified. EDMS 06:50 COVID swab sent to lab. rr5 07:03 initiated a transfer with Datril from the [facility] transfer center. eb 07:13 Primary Nurse role handed off by Juan Golden, RN bp 07:13 Brock Rea, RN is Primary Nurse. bp 07:[address] Mcgraw the emergency room doctor administration clerk for [facility] with Dr. Heather mims for patient transfer consultaion. 07:19 administrative approval given by Dao Dennis/ patient has been accepted to [facility]/ Dr. Nandini Mcgraw has accepted the patient in transfer/ report to be called to [phone]. 08:17 Patient transferred, IV remains in place. bp Administered Medications: 06:35 Drug: Norepinephrine (4 mg/250 mL D5W) 4 mcg/min Route: IV; Rate: calculated rate; ea Site: right femoral; 07:54 Follow up: IV Status: Infusion continued upon transfer bp 06:55 Drug: ProTONIX 8 mg/hr Route: IV; Rate: 25 ml/hr; Site: right forearm; ea 07:54 Follow up: IV Status: Infusion continued upon transfer bp 06:55 Drug: ProTONIX 80 mg Route: IVP; Site: right forearm; ea 07:54 Follow up: Response: No adverse reaction bp 06:55 CANCELLED (Duplicate Order): ProTONIX 8 mg/hr IV at 25 ml/hr continuous; (Standard ea dilution is 80 mg in 250 mL NS) 06:55 CANCELLED (Duplicate Order): ProTONIX 8 mg/hr IV at 25 ml/hr continuous; (Standard ea dilution is 80 mg in 250 mL NS) 07:12 Not Given (Physician Discretion): Lasix 60 mg IVP once jl7 07:30 Drug: NS 0.9% 500 ml Route: IV; Rate: bolus; Site: right femoral; bp 08:09 Follow up: IV Status: Infusion continued upon transfer bp 07:30 Drug: Flagyl 500 mg Volume: 100 ml; Route: IVPB; Rate: 200 ml/hr; Infused Over: 30 bp mins; Site: right femoral; 07:55 Follow up: IV Status: Infusion continued upon transfer bp 08:00 Follow up: IV Status: Completed infusion; IV Intake: 100ml bp 08:00 Drug: LevaQUIN 500 mg Volume: 100 ml; Route: IVPB; Infused Over: 60 mins; Site: right bp femoral; 08:09 Follow up: IV Status: Infusion continued upon transfer bp Intake: 08:00 IV: 100ml; Total: 100ml. bp Outcome: 07:22 ER care complete, transfer ordered by MD. barraza 08:17 Transferred by helicopter Note: [facility] CLEAR SANDY bp 08:17 Condition: stable 08:17 Instructed on the need for transfer. 08:28 Patient left the ED. bp Signatures: Dispatcher [employer] EDJose Baker, RN RN Ayanna Huber RN RN Brock Anton RN RN Johana Wilson Raymond RN RN rr5 Rom Romero MD MD 7 Madeline Goodman RN jl7 Corrections: (The following items were deleted from the chart) 07:32 07:03 initiated a transfer with Araceli from the [facility] transfer center. felicita mims
[2020-05-06] MEDS ORDERED: NA CHLORIDE 0.9% 500 ML ONE (07:45)
[2020-05-06] MEDS ORDERED: Levofloxacin500mg IV 500 MG/100 ML BAG IV ONE (07:45)
[2020-05-06] MEDS ORDERED: METRONIDAZOLE 500mg IVPB 500 MG/100 ML BAG IV ONE (07:45)
[2020-05-06 07:50] LABS: Urine Bacteria <20 /HPF (NONE SEEN); Urine RBC <5 /HPF (NONE SEEN)
[2020-05-06 08:57] VITALS: O2SAT 100
[2020-05-06 09:00] VITALS: BP 104/52; TEMP 95.3
[2020-05-06 10:10] LABS: Anisocytosis 2+; Blood Morphology Comment NOTED (NOT SEEN); Platelet Estimate ADEQ; Polychromasia 1+
--- NOTE | 2020-05-06 11:43 | RAD REPORT ---
EXAM DESCRIPTION: RAD - Chest Single View - 05/06/2020 6:39 am CLINICAL HISTORY: SOB Chest pain. COMPARISON: Chest Pa And Lat (2 Views) dated 12/22/2019; Chest Single View dated 12/06/2019; Chest Sing le View dated 03/11/2019 FINDINGS: Portable technique limits examination quality. The lungs are grossly clear. Small left pleural effusion is seen. The heart is moderately enlarged in size. Right-sided pacer device is present.
== END 2020-05-06 08:28 ==
LOC: ER 05:52
PROC: 30233N1 Transfusion of Nonautologous Red Blood Cells into Peripheral Vein, Percutaneous Approach (ICD-10-PCS; principal; 2020-05-06)
PROC: 06HM33Z Insertion of Infusion Device into Right Femoral Vein, Percutaneous Approach (ICD-10-PCS; 2020-05-06)
DX: K92.2 Gastrointestinal hemorrhage, unspecified (principal); I95.9 Hypotension, unspecified; Z20.822 Contact with and (suspected) exposure to COVID-19; E11.22 Type 2 diabetes mellitus with diabetic chronic kidney disease; I12.0 Hypertensive chronic kidney disease with stage 5 chronic kidney disease or end stage renal disease; N18.6 End stage renal disease; Z88.0 Allergy status to penicillin; Z99.2 Dependence on renal dialysis; Z85.53 Personal history of malignant neoplasm of renal pelvis; Z91.048 Other nonmedicinal substance allergy status
CPT/HCPCS: 93005; 87040 ×2; 85025; 87086; 80048; 36415; 86900; 83735; 86850; 85610; 86901; 80076; 83605; 81015; 84484; 84145; 83880; 71045; 82805; 51702; 99291; 36430; 36556; U0003; C9113 ×2; P9016; J7050 ×2; J7040; 87088

== ENCOUNTER 2020-08-11 19:31 | Inpatient (IN) | payer OTHER ==
--- OUTSIDE RECORDS SUMMARY | 2020-08-11 19:40 | XMS REPORT | Continuity of Care Document ---
:1935 Author Organization [facility] t Address [address] [place] [address] Care Team Providers Name Role Phone Jose CHRISTIAN, Siraj Primary Care Physician Jada CHRISTIAN T. Attending Clinician Boby CHRISTIAN, V. Attending Clinician Edmund ZAYAS Attending Clinician Amado CHRISTIAN, J. 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 thodist Natural father Heart disease [place] [facility]rian Natural father Hypertension [place] [facility] Natural mother Diabetes [facility]ist Natural mother Heart attack [place] [facility] Natural mother Heart disease Lee [facility]rian Natural mother Hypertension Lee [facility] Natural mother Stroke [facility]ist Social History Social Habit Start Date Stop Date Quantity Comments Source Tobacco use and 2019-09-09 2019-09-09 Never used [place] [facility]ist exposure 00:00:00 00:00:00 Alcohol intake 2019-09-09 2019-09-09 Current [facility]odist 00:00:00 00:00:00 non-drinker of alcohol (finding) Sex Ass[birth year] At [birth year] [facility] [place] [facility] 00:00:00 00:00:00 Smoking Status Start Date Stop Date Source Never smoker Lee Katrinis t Medications Ordered Filled Start Stop Current Ordering [...] capsule 43 daily. lanthanum 2020-0 Yes 1000mg [id number] Chew 1,000 Sharpe (FOSRENOL) 6-11 [id number] mg 3 Met hodi 1000 MG 17:30: [...] 500 MG tablet acetaminoph 2020-0 Yes 500mg [id number] Take 500 Sharpe en 6-11 [id number] mg by [facility] (TYLENOL) 17:30: 3D mouth 3 st 500 MG 43 (three) tablet times a day as needed for mild pain (FOR BACK AND HIP PAIN). Saccharomyc 2020-0 Yes 250mg QD Take 250 H [place] es 6-11 mg by [facility] boulardii 17:30: mouth st (FLORASTOR) 43 daily. 250 mg capsule diphenhydrA Yes 25mg Q6H Take 25 mg Sharpe MINE 09-07 by mouth [facility] (BenadryL) 17:30: every 6 st 25 mg 43 (six) capsule hours as needed for itching. cholecalcif 0 Yes QD Take by Kadie michaels, 09-07 mouth [facility] vitamin D3, 17:30: daily. st (VITAMIN D3 43 ORAL) acetaminoph 2020- No acute pain 1{tbl} Q4H Take 1 Lee en-codeine 09-07 tablet by Met ac (TYLENOL 00:00: 23:[address] WITH 00 :00 every 4 CODEINE #3) (four) 300-30 mg hours as per tablet needed for moderate pain for up to 7 days .acute pain. traMADol-ac 2019- No acute pain 1{tbl} QD Take 1 Lee etaminophen 08-31 tablet by Me chilel (ULTRACET) 12:17: 00:[address] 37.5-325 mg 06 :00 nightly per tablet .acute pain. calcium 2019- No 1{tbl} Q.5D Take 1 [place] citrate-vit 08-31 tablet by Me chilel fried D3 12:15: 00:[address] (CITRACAL+D 31 :00 (two) ) 315-200 times a mg-unit per day. tablet Vital Signs Vital Name Observation Time Observation Value Comments Source Systolic blood 2019-09-08 17:15:00 135 mm[Hg] Xander n Zoroastrian pressure Diastolic blood 2019-09-08 17:15:00 65 mm[Hg] Stefany on Zoroastrian pressure Heart rate 2019-09-08 17:15:00 67 /min Dell Duarte Respiratory rate 2019-09-08 17:15:00 16 /min David ton Zoroastrian Oxygen saturation in 2019-09-08 17:15:00 96 /min Dell Duarte Arterial blood by Pulse oximetry Body temperature 2019-09-08 16:30:00 36.22 Marilee David Duarte Body height 2019-09-08 09:59:00 182.9 cm Dell Duarte Body weight 2019-09-08 09:59:00 112.038 kg Dell Duarte BMI 2019-09-08 09:59:00 33.50 kg/m2 Dell Duarte Procedures Procedure Date / Time Performing Clinician Source Performed NV AN ELECTIVE 2019-09-09 12:10:59 Hina Landis SUPRAGLOTTIC AIRWAY POC GLUCOSE 2019-09-08 15:19:00 Omega Elias OR [place] < 1 HOUR 2019-09-08 15:05:17 Omega Elias REVISION, ARTERIOVENOUS 2019-09-08 13:32:00 Omega Elias GRAFT, WITH ANGIOGRAPHY POC PANEL 4 2019-09-08 10:11:00 Omega Elias [...] Elias HEMOGLOBIN A1C 2019-09-01 12:41:00 Dell Fischer Plan of Care Planned Activity Planned Date Details Comments Source Future Scheduled 2020-10-28 INFLUENZA VACCINE [place] [facility] Test 00:00:00 [code = INFLUENZA VACCINE] Future Scheduled 1987-10-01 SHINGLES VACCINES (#1) H oumalena [facility] Test 00:00:00 [code = SHINGLES VACCINES (#1)] Future Scheduled 1953 COVID-19 VACCINE (1) Kadiechito guy [facility]rian Test 00:00:00 [code = COVID-19 VACCINE (1)] Future Scheduled 1947-10-01 DIABETES: RETINAL EYE Ho rae [facility]rian Test 00:00:00 EXAM [code = DIABETES: RETINAL EYE EXAM] Future Scheduled 1947-10-01 DIABETIC FOOT EXAM [place] [facility] Test 00:00:00 [code = DIABETIC FOOT EXAM] Future Scheduled 1943-10-01 65+ PNEUMOCOCCAL Lee [facility]rian Test 00:00:00 VACCINE (1 of 4 - PCV13) [code = 65+ PNEUMOCOCCAL VACCINE (1 of 4 - PCV13)] Encounters Start End Encounter Admission Attending Care Care Encounter Source Date/Time Date/Time Type Type Clinicians Facility Department ID 2019-09-08 2019-09-08 [id number] [id number] Lee 00:00:00 00:00:00 IMRAN [address] 2019-09-01 2019-09-01 Outpatient JADA [facility] [id number] Lee 00:00:00 00:00:00 IMRAN [address] 2019-09-01 2019-09-01 Outpatient WOELI [facility] [id number] Lee 00:00:00 00:00:00 KI, 485 Method i KALPESH 2019-07-11 2019-07-12 Inpatient JESUS HANLEY [facility] 021 [id number] Lee 00:00:00 00:00:[address] 2019-06-02 2019-06-02 Outpatient ROBERTH [facility] [id number] Lee 00:00:00 00:00:00 VIDYA [address] 2019-05-11 2019-05-13 Inpatient BRANDONMAURY [facility] [id number] Lee 00:00:00 00:00:00 ORLIN [address] Results Test Description Test Time Test Comments Results Result Comments Source GLUBED 2020-06-07 11:44:00 Test Item Value Reference Range Interpretation Comme nts GLUBED (test code = GLUBED) 145 MG/DL 70-110 H Performed by certified 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 [facility] AB HEPATITIS B [id number] 09:13:00 Test Item Value Reference Range Interpretation Comments AB HEPATITIS B CORE Negative Negative Performe d At: HD (test code = HBCAB) [facility] [id number] [facility] [place] [id number] yael Landry MD Ph:[phone] CBC W/AUTO [id number] 08:44:00 Test Item Value Reference Range Interpretation Comments WHITE BLOOD CELL (test code = 7.6 x10 3/uL 4.5-11.0 N WBC) RED BLOOD CELL (test code = 2.97 x10 6/uL 4.00-5.60 L RBC) HEMOGLOBIN (test code = HGB) 8.7 g/dL 12.5-16.9 L HEMATOCRIT (test code = HCT) 28.7 % 37.5-50.7 L MEAN CELL VOLUME (test code = 96.6 fL 81.0-99.0 N MCV) MEAN CELL HGB (test code = MCH) 29.3 pg 27.0-33.0 N MEAN CELL HGB CONCETRATION 30.3 g/dL 33.0-37.0 L (test code = MCHC) RED CELL DISTRIBUTION WIDTH CV 15.5 % 11.5-14.5 H (test code = RDW) RED CELL DISTRIBUTION WIDTH SD 54.3 fL 37.0-54.0 H (test code = RDW-SD) PLATELET COUNT (test code = 244 x10 3/uL 150-400 N PLT) MEAN PLATELET VOLUME (test code 10.1 fL 7.0-9.0 H = MPV) NEUTROPHIL % (test code = NT%) 65.4 % 56.0-77.0 N IMMATURE GRANULOCYTE % (test 0.4 % 0.0-2.0 N code = IG%) LYMPHOCYTE % (test code = LY%) 17.8 % 14.0-32.0 N MONOCYTE % (test code = MO%) 11.4 % 4.8-9.0 H EOSINOPHIL % (test code = EO%) 4.5 % 0.3-3.7 H BASOPHIL % (test code = BA%) 0.5 % 0.0-2.0 N NUCLEATED RBC % (test code = 0.0 % 0-0 N NRBC%) NEUTROPHIL # (test code = NT#) 4.97 x10 3/uL 2.0-7.6 N IMMATURE GRANULOCYTE # (test 0.03 x10 3/uL 0.00-0.03 N code = IG#) LYMPHOCYTE # (test code = LY#) 1.35 x10 3/uL 1.0-3.8 N MONOCYTE # (test code = MO#) 0.87 x10 3/uL 0.1-0.8 H EOSINOPHIL # (test code = EO#) 0.34 x10 3/uL 0.0-0.2 H BASOPHIL # (test code = BA#) 0.04 x10 3/uL 0.0-0.2 N NUCLEATED RBC # (test code = 0.00 x10 3/uL 0.0-0.1 N NRBC#) MANUAL DIFF REQUIRED (test code NO = MDIFF) BASIC METABOLIC [id number] 08:18:00 Test Item Value Reference Range Interpretation Comments SODIUM (test code = NA) 133 mEq/L 134-147 L POTASSIUM (test code = 4.4 mEq/L 3.4-5.0 N K) CHLORIDE (test code = 99 mEq/L 100-108 L CL) CARBON DIOXIDE (test 27 mEq/l 21-33 N code = CO2) ANION GAP (test code = 11 0-20 N GAP) GLUCOSE (test code = 129 mg/dL 70-110 H GLU) BLOOD UREA NITROGEN 47 mg/dL 7-18 H (test code = BUN) GLOMERULAR FILTRATION 9.8 70-80 L Units of measure = RATE (test code = GFR) ml/mi n/1.73 m2 CREATININE (test code = 5.6 mg/dL 0.6-1.3 H CREAT) CALCIUM (test code = 10.2 mg/dL 8.0-10.5 N CA) CBC W/AUTO [id number] 07:39:00 Test Item Value Reference Range Interpretation Comments WHITE BLOOD CELL (test code = x10 3/uL 4.5-11.0 WBC) RED BLOOD CELL (test code = RBC) x10 6/uL 4.00-5.60 HEMOGLOBIN (test code = HGB) g/dL 12.5-16.9 HEMATOCRIT (test code = HCT) % 37.5-50.7 MEAN CELL VOLUME (test code = fL 81.0-99.0 MCV) MEAN CELL HGB (test code = MCH) pg 27.0-33.0 MEAN CELL HGB CONCETRATION (test g/dL 33.0-37.0 code = MCHC) RED CELL DISTRIBUTION WIDTH CV % 11.5-14.5 (test code = RDW) PLATELET COUNT (test code = PLT) 244 x10 3/uL 150-400 N NEUTROPHIL % (test code = NT%) % 56.0-77.0 LYMPHOCYTE % (test code = LY%) % 14.0-32.0 NEUTROPHIL # (test code = NT#) x10 3/uL 2.0-7.6 LYMPHOCYTE # (test code = LY#) x10 3/uL 1.0-3.8 MANUAL DIFF REQUIRED (test code = MDIFF) [id number] 22:28:00 Test Item Value Reference Range Interpretation Comments GLUBED (test code = 177 MG/DL 70-110 H Performe d by certified GLUBED) 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 [facility] [id number] 18:20:00 Test Item Value Reference Range Interpretation Comments GLUBED (test code = 156 MG/DL 70-110 H Performe d by certified GLUBED) 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 [facility] [id number] 12:15:00 Test Item Value Reference Range Interpretation Comments GLUBED (test code = 194 MG/DL 70-110 H Performe d by certified GLUBED) 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 [facility] [id number] 07:42:00 Test Item Value Reference Range Interpretation Comments GLUBED (test code = 123 MG/DL 70-110 H Performe d by certified GLUBED) 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 [facility] [id number] 00:18:00 Test Item Value Reference Range Interpretation Comments GLUBED (test code = 184 MG/DL 70-110 H Performe d by certified GLUBED) 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 [facility] [id number] 20:10:00 Test Item Value Reference Range Interpretation Comments GLUBED (test code = 165 MG/DL 70-110 H Performe d by certified GLUBED) 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 [facility] COVID 19 Asymptomatic IH [id number] 19:37:00 Test Item Value Reference Range Interpretation Comments COVID 19 Asymptomatic Negative Negative A nega tive result is IH AG (test code = presumpti ve and should COVNONPUIAG) be confirmedwit h an FDA authorized mole cular assay, if colten leslie forpatient charbel sheth.A positive result does not rule out co-inf ections withother patho gens.This test detects jarvis th viable (live) and non-viable,SARS -CoV, and SARS-CoV-2. Bubba t performance dep ends on theamount of vi alyse (antigen) in th e sample.This bubba t has not been FDA cleare d or approved; the t est hasbeen authori zed by FDA under an Em ergency Use Authorizati on(EUA) for use by labo ratories certified under the CLIA thatmeet the requirements to perform moderate, high or waivedcomplexit y tests. [id number] 18:39:00 Test Item Value Reference Range Interpretation Comments GLUBED (test code = 131 MG/DL 70-110 H Performe d by certified GLUBED) 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 [facility] [id number] 12:35:00 Test Item Value Reference Range Interpretation Comments GLUBED (test code = 147 MG/DL 70-110 H Performe d by certified GLUBED) 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 [facility] [id number] 06:02:00 Test Item Value Reference Range Interpretation Comments GLUBED (test code = 120 MG/DL 70-110 H Performe d by certified GLUBED) 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 [facility] BASIC METABOLIC [id number] 04:22:00 Test Item Value Reference Range Interpretation Comments SODIUM (test code = NA) 133 mEq/L 134-147 L POTASSIUM (test code = 4.1 mEq/L 3.4-5.0 N K) CHLORIDE (test code = 99 mEq/L 100-108 L CL) CARBON DIOXIDE (test 29 mEq/l 21-33 N code = CO2) ANION GAP (test code = 10 0-20 N GAP) GLUCOSE (test code = 132 mg/dL 70-110 H GLU) BLOOD UREA NITROGEN 63 mg/dL 7-18 H (test code = BUN) GLOMERULAR FILTRATION 8.6 70-80 L Units of measure = RATE (test code = GFR) ml/mi n/1.73 m2 CREATININE (test code = 6.3 mg/dL 0.6-1.3 H CREAT) CALCIUM (test code = 9.9 mg/dL 8.0-10.5 N CA) [id number] 04:22:00 Test Item Value Reference Range Interpretation Comments PHOSPHOROUS (test code = PHOS) 3.7 MG/DL 2.5-4.9 N [id number] 04:09:00 Test Item Value Reference Range Interpretation Comments GLUBED (test code = 122 MG/DL 70-110 H Performe d by certified GLUBED) 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 [facility] CBC W/AUTO [id number] 04:05:00 Test Item Value Reference Range Interpretation Comments WHITE BLOOD CELL (test code = 7.5 x10 3/uL 4.5-11.0 N WBC) RED BLOOD CELL (test code = 3.02 x10 6/uL 4.00-5.60 L RBC) HEMOGLOBIN (test code = HGB) 8.7 g/dL 12.5-16.9 L HEMATOCRIT (test code = HCT) 29.1 % 37.5-50.7 L MEAN CELL VOLUME (test code = 96.4 fL 81.0-99.0 N MCV) MEAN CELL HGB (test code = MCH) 28.8 pg 27.0-33.0 N MEAN CELL HGB CONCETRATION 29.9 g/dL 33.0-37.0 L (test code = MCHC) RED CELL DISTRIBUTION WIDTH CV 15.4 % 11.5-14.5 H (test code = RDW) RED CELL DISTRIBUTION WIDTH SD 53.7 fL 37.0-54.0 N (test code = RDW-SD) PLATELET COUNT (test code = 239 x10 3/uL 150-400 N PLT) MEAN PLATELET VOLUME (test code 9.6 fL 7.0-9.0 H = MPV) NEUTROPHIL % (test code = NT%) 69.3 % 56.0-77.0 N IMMATURE GRANULOCYTE % (test 0.3 % 0.0-2.0 N code = IG%) LYMPHOCYTE % (test code = LY%) 14.5 % 14.0-32.0 N MONOCYTE % (test code = MO%) 9.5 % 4.8-9.0 H EOSINOPHIL % (test code = EO%) 5.9 % 0.3-3.7 H BASOPHIL % (test code = BA%) 0.5 % 0.0-2.0 N NUCLEATED RBC % (test code = 0.0 % 0-0 N NRBC%) NEUTROPHIL # (test code = NT#) 5.20 x10 3/uL 2.0-7.6 N IMMATURE GRANULOCYTE # (test 0.02 x10 3/uL 0.00-0.03 N code = IG#) LYMPHOCYTE # (test code = LY#) 1.09 x10 3/uL 1.0-3.8 N MONOCYTE # (test code = MO#) 0.71 x10 3/uL 0.1-0.8 N EOSINOPHIL # (test code = EO#) 0.44 x10 3/uL 0.0-0.2 H BASOPHIL # (test code = BA#) 0.04 x10 3/uL 0.0-0.2 N NUCLEATED RBC # (test code = 0.00 x10 3/uL 0.0-0.1 N NRBC#) MANUAL DIFF REQUIRED (test code NO = MDIFF) [id number] 18:00:00 Test Item Value Reference Range Interpretation Comments GLUBED (test code = 134 MG/DL 70-110 H Performe d by certified GLUBED) 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 [facility] [id number] 16:40:00 Test Item Value Reference Range Interpretation Comments GLUBED (test code = 112 MG/DL 70-110 H Performe d by certified GLUBED) 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 [facility] [id number] 12:38:00 Test Item Value Reference Range Interpretation Comments GLUBED (test code = 165 MG/DL 70-110 H Performe d by certified GLUBED) 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 [facility] [id number] 06:22:00 Test Item Value Reference Range Interpretation Comments GLUBED (test code = 111 MG/DL 70-110 H Performe d by certified GLUBED) 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 [facility] [id number] 05:16:00 Test Item Value Reference Range Interpretation Comments MAGNESIUM (test code = MAG) 1.87 mg/dL 1.80-2.40 N BASIC METABOLIC [id number] 04:52:00 Test Item Value Reference Range Interpretation Comments SODIUM (test code = NA) 134 mEq/L 134-147 N POTASSIUM (test code = 4.1 mEq/L 3.4-5.0 N K) CHLORIDE (test code = 99 mEq/L 100-108 L CL) CARBON DIOXIDE (test 31 mEq/l 21-33 N code = CO2) ANION GAP (test code = 8 0-20 N GAP) GLUCOSE (test code = 116 mg/dL 70-110 H GLU) BLOOD UREA NITROGEN 65 mg/dL 7-18 H (test code = BUN) GLOMERULAR FILTRATION 10.7 70-80 L Units of measure = RATE (test code = GFR) ml/mi n/1.73 m2 CREATININE (test code = 5.2 mg/dL 0.6-1.3 H CREAT) CALCIUM (test code = 10.9 mg/dL 8.0-10.5 H CA) CBC W/AUTO [id number] 04:48:00 Test Item Value Reference Range Interpretation Comments WHITE BLOOD CELL (test code = 7.9 x10 3/uL 4.5-11.0 N WBC) RED BLOOD CELL (test code = 2.75 x10 6/uL 4.00-5.60 L RBC) HEMOGLOBIN (test code = HGB) 7.9 g/dL 12.5-16.9 L HEMATOCRIT (test code = HCT) 26.3 % 37.5-50.7 L MEAN CELL VOLUME (test code = 95.6 fL 81.0-99.0 N MCV) MEAN CELL HGB (test code = MCH) 28.7 pg 27.0-33.0 N MEAN CELL HGB CONCETRATION 30.0 g/dL 33.0-37.0 L (test code = MCHC) RED CELL DISTRIBUTION WIDTH CV 15.8 % 11.5-14.5 H (test code = RDW) RED CELL DISTRIBUTION WIDTH SD 54.5 fL 37.0-54.0 H (test code = RDW-SD) PLATELET COUNT (test code = 236 x10 3/uL 150-400 N PLT) MEAN PLATELET VOLUME (test code 9.6 fL 7.0-9.0 H = MPV) NEUTROPHIL % (test code = NT%) 63.3 % 56.0-77.0 N IMMATURE GRANULOCYTE % (test 0.4 % 0.0-2.0 N code = IG%) LYMPHOCYTE % (test code = LY%) 17.9 % 14.0-32.0 N MONOCYTE % (test code = MO%) 10.8 % 4.8-9.0 H EOSINOPHIL % (test code = EO%) 7.1 % 0.3-3.7 H BASOPHIL % (test code = BA%) 0.5 % 0.0-2.0 N NUCLEATED RBC % (test code = 0.0 % 0-0 N NRBC%) NEUTROPHIL # (test code = NT#) 4.99 x10 3/uL 2.0-7.6 N IMMATURE GRANULOCYTE # (test 0.03 x10 3/uL 0.00-0.03 N code = IG#) LYMPHOCYTE # (test code = LY#) 1.41 x10 3/uL 1.0-3.8 N MONOCYTE # (test code = MO#) 0.85 x10 3/uL 0.1-0.8 H EOSINOPHIL # (test code = EO#) 0.56 x10 3/uL 0.0-0.2 H BASOPHIL # (test code = BA#) 0.04 x10 3/uL 0.0-0.2 N NUCLEATED RBC # (test code = 0.00 x10 3/uL 0.0-0.1 N NRBC#) MANUAL DIFF REQUIRED (test code NO = MDIFF) CBC W/AUTO [id number] 04:43:00 Test Item Value Reference Range Interpretation Comments WHITE BLOOD CELL (test code = x10 3/uL 4.5-11.0 WBC) RED BLOOD CELL (test code = RBC) x10 6/uL 4.00-5.60 HEMOGLOBIN (test code = HGB) g/dL 12.5-16.9 HEMATOCRIT (test code = HCT) % 37.5-50.7 MEAN CELL VOLUME (test code = fL 81.0-99.0 MCV) MEAN CELL HGB (test code = MCH) pg 27.0-33.0 MEAN CELL HGB CONCETRATION (test g/dL 33.0-37.0 code = MCHC) RED CELL DISTRIBUTION WIDTH CV % 11.5-14.5 (test code = RDW) PLATELET COUNT (test code = PLT) 236 x10 3/uL 150-400 N NEUTROPHIL % (test code = NT%) % 56.0-77.0 LYMPHOCYTE % (test code = LY%) % 14.0-32.0 NEUTROPHIL # (test code = NT#) x10 3/uL 2.0-7.6 LYMPHOCYTE # (test code = LY#) x10 3/uL 1.0-3.8 MANUAL DIFF REQUIRED (test code = MDIFF) [id number] 03:58:00 Test Item Value Reference Range Interpretation Comments GLUBED (test code = 147 MG/DL 70-110 H Performe d by certified GLUBED) 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 [facility] [id number] 16:28:00 Test Item Value Reference Range Interpretation Comments GLUBED (test code = 141 MG/DL 70-110 H Performe d by certified GLUBED) 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 [facility] [id number] 12:52:00 Test Item Value Reference Range Interpretation Comments GLUBED (test code = 133 MG/DL 70-110 H Performe d by certified GLUBED) 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 [facility] [id number] 08:35:00 Test Item Value Reference Range Interpretation Comments GLUBED (test code = 116 MG/DL 70-110 H Performe d by certified GLUBED) 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 [facility] ACUTE HEPATITIS [id number] 06:11:00 Test Item Value Reference Range Interpretation Comments AB HEPATITIS A IGM (test NON REACTIVE INDEX NON REACT. code = HAVMAB) AG HEPATITIS B SURFACE NON REACTIVE INDEX NonReactive (test code = HBSAG) AB HEPATITIS B CORE IGM NON REACTIVE INDEX NON REACT. (test code = HBCMAB) AB HEPATITIS C (test code NON REACTIVE INDEX NON REACT. = HCVAB) COMMENTS: At start of hemodialysisAB HEPATITIS B [id number] 06:11:00 Test Item Value Reference Range Interpretation Comments AB HEPATITIS B 3.2 mIU/mL See_Comment L Status of I mmunity SURFACE (test code = HBSAB) Anti-HBs Level --- I nconsis tent with Immun ity 0 .0 - 9.9Consistent w ith Immunity >9.9Performed A t: HD [facility] [address] [id number] yael Landry MD Ph:[phone] [Automated mess age] The system Source Audio generated this result transmitted ref erence range: Immunity >9.9. The reference r lydia was not used to interpret this result as normal/abnor mal. COMMENTS: At start of hemodialysisBASIC METABOLIC [id number] 05:20:00 Test Item Value Reference Range Interpretation Comments SODIUM (test code = NA) 136 mEq/L 134-147 N POTASSIUM (test code = 3.9 mEq/L 3.4-5.0 N K) CHLORIDE (test code = 101 mEq/L 100-108 N CL) CARBON DIOXIDE (test 31 mEq/l 21-33 N code = CO2) ANION GAP (test code = 8 0-20 N GAP) GLUCOSE (test code = 144 mg/dL 70-110 H GLU) BLOOD UREA NITROGEN 45 mg/dL 7-18 H (test code = BUN) GLOMERULAR FILTRATION 14.9 70-80 L Units of measure = RATE (test code = GFR) ml/mi n/1.73 m2 CREATININE (test code = 3.9 mg/dL 0.6-1.3 H CREAT) CALCIUM (test code = 9.6 mg/dL 8.0-10.5 N CA) [id number] 05:20:00 Test Item Value Reference Range Interpretation Comments MAGNESIUM (test code = MAG) 1.83 mg/dL 1.80-2.40 CBC W/AUTO [id number] 05:01:00 Test Item Value Reference Range Interpretation Comments WHITE BLOOD CELL (test code = 8.3 x10 3/uL 4.5-11.0 N WBC) RED BLOOD CELL (test code = 2.91 x10 6/uL 4.00-5.60 L RBC) HEMOGLOBIN (test code = HGB) 8.5 g/dL 12.5-16.9 L HEMATOCRIT (test code = HCT) 27.9 % 37.5-50.7 L MEAN CELL VOLUME (test code = 95.9 fL 81.0-99.0 N MCV) MEAN CELL HGB (test code = MCH) 29.2 pg 27.0-33.0 N MEAN CELL HGB CONCETRATION 30.5 g/dL 33.0-37.0 L (test code = MCHC) RED CELL DISTRIBUTION WIDTH CV 15.6 % 11.5-14.5 H (test code = RDW) RED CELL DISTRIBUTION WIDTH SD 53.6 fL 37.0-54.0 N (test code = RDW-SD) PLATELET COUNT (test code = 258 x10 3/uL 150-400 N PLT) MEAN PLATELET VOLUME (test code 9.5 fL 7.0-9.0 H = MPV) NEUTROPHIL % (test code = NT%) 66.2 % 56.0-77.0 N IMMATURE GRANULOCYTE % (test 0.6 % 0.0-2.0 N code = IG%) LYMPHOCYTE % (test code = LY%) 15.7 % 14.0-32.0 N MONOCYTE % (test code = MO%) 10.6 % 4.8-9.0 H EOSINOPHIL % (test code = EO%) 6.4 % 0.3-3.7 H BASOPHIL % (test code = BA%) 0.5 % 0.0-2.0 N NUCLEATED RBC % (test code = 0.0 % 0-0 N NRBC%) NEUTROPHIL # (test code = NT#) 5.51 x10 3/uL 2.0-7.6 N IMMATURE GRANULOCYTE # (test 0.05 x10 3/uL 0.00-0.03 H code = IG#) LYMPHOCYTE # (test code = LY#) 1.31 x10 3/uL 1.0-3.8 N MONOCYTE # (test code = MO#) 0.88 x10 3/uL 0.1-0.8 H EOSINOPHIL # (test code = EO#) 0.53 x10 3/uL 0.0-0.2 H BASOPHIL # (test code = BA#) 0.04 x10 3/uL 0.0-0.2 N NUCLEATED RBC # (test code = 0.00 x10 3/uL 0.0-0.1 N NRBC#) MANUAL DIFF REQUIRED (test code NO = MDIFF) [id number] 20:34:00 Test Item Value Reference Range Interpretation Comments GLUBED (test code = 127 MG/DL 70-110 H Performe d by certified GLUBED) 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 [facility] [id number] 16:21:00 Test Item Value Reference Range Interpretation Comments GLUBED (test code = 192 MG/DL 70-110 H Performe d by certified GLUBED) 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 [facility] [id number] 14:46:00 Test Item Value Reference Range Interpretation Comments GLUBED (test code = 177 MG/DL 70-110 H Performe d by certified GLUBED) 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 [facility] ACUTE HEPATITIS [id number] 11:40:00 Test Item Value Reference Range Interpretation Comments AB HEPATITIS A IGM (test NON REACTIVE INDEX NON REACT. code = HAVMAB) AG HEPATITIS B SURFACE NON REACTIVE INDEX NonReactive (test code = HBSAG) AB HEPATITIS B CORE IGM NON REACTIVE INDEX NON REACT. (test code = HBCMAB) AB HEPATITIS C (test code NON REACTIVE INDEX NON REACT. = HCVAB) COMMENTS: At start of hemodialysisAB HEPATITIS B [id number] 11:40:00 Test Item Value Reference Range Interpretation Comments AB HEPATITIS B SURFACE (test code = HBSAB) COMMENTS: At start of hemodialysisCBC W/AUTO [id number] 08:37:00 Test Item Value Reference Range Interpretation Comments WHITE BLOOD CELL (test code = 7.9 x10 3/uL 4.5-11.0 N WBC) RED BLOOD CELL (test code = 3.10 x10 6/uL 4.00-5.60 L RBC) HEMOGLOBIN (test code = HGB) 9.1 g/dL 12.5-16.9 L HEMATOCRIT (test code = HCT) 30.3 % 37.5-50.7 L MEAN CELL VOLUME (test code = 97.7 fL 81.0-99.0 MCV) MEAN CELL HGB (test code = MCH) 29.4 pg 27.0-33.0 N MEAN CELL HGB CONCETRATION 30.0 g/dL 33.0-37.0 L (test code = MCHC) RED CELL DISTRIBUTION WIDTH CV 15.9 % 11.5-14.5 H (test code = RDW) RED CELL DISTRIBUTION WIDTH SD 56.2 fL 37.0-54.0 H (test code = RDW-SD) PLATELET COUNT (test code = 254 x10 3/uL 150-400 N PLT) MEAN PLATELET VOLUME (test code 10.4 fL 7.0-9.0 H = MPV) NEUTROPHIL % (test code = NT%) 64.5 % 56.0-77.0 N IMMATURE GRANULOCYTE % (test 0.3 % 0.0-2.0 N code = IG%) LYMPHOCYTE % (test code = LY%) 15.9 % 14.0-32.0 N MONOCYTE % (test code = MO%) 12.1 % 4.8-9.0 H EOSINOPHIL % (test code = EO%) 6.7 % 0.3-3.7 H BASOPHIL % (test code = BA%) 0.5 % 0.0-2.0 N NUCLEATED RBC % (test code = 0.0 % 0-0 N NRBC%) NEUTROPHIL # (test code = NT#) 5.07 x10 3/uL 2.0-7.6 N IMMATURE GRANULOCYTE # (test 0.02 x10 3/uL 0.00-0.03 N code = IG#) LYMPHOCYTE # (test code = LY#) 1.25 x10 3/uL 1.0-3.8 N MONOCYTE # (test code = MO#) 0.95 x10 3/uL 0.1-0.8 H EOSINOPHIL # (test code = EO#) 0.53 x10 3/uL 0.0-0.2 H BASOPHIL # (test code = BA#) 0.04 x10 3/uL 0.0-0.2 N NUCLEATED RBC # (test code = 0.00 x10 3/uL 0.0-0.1 N NRBC#) MANUAL DIFF REQUIRED (test code NO = MDIFF) BASIC METABOLIC [id number] 08:00:00 Test Item Value Reference Range Interpretation Comments SODIUM (test code = NA) 133 mEq/L 134-147 L POTASSIUM (test code = 4.0 mEq/L 3.4-5.0 N K) CHLORIDE (test code = 101 mEq/L 100-108 N CL) CARBON DIOXIDE (test 28 mEq/l 21-33 N code = CO2) ANION GAP (test code = 8 0-20 N GAP) GLUCOSE (test code = 139 mg/dL 70-110 H GLU) BLOOD UREA NITROGEN 42 mg/dL 7-18 H (test code = BUN) GLOMERULAR FILTRATION 11.4 70-80 L Units of measure = RATE (test code = GFR) ml/mi n/1.73 m2 CREATININE (test code = 4.9 mg/dL 0.6-1.3 H CREAT) CALCIUM (test code = 11.3 mg/dL 8.0-10.5 H CA) [id number] 08:00:00 Test Item Value Reference Range Interpretation Comments MAGNESIUM (test code = MAG) 2.27 mg/dL 1.80-2.40 N [id number] 07:05:00 Test Item Value Reference Range Interpretation Comments GLUBED (test code = 134 MG/DL 70-110 H Performe d by certified GLUBED) 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 [facility] [id number] 18:16:00 Test Item Value Reference Range Interpretation Comments GLUBED (test code = 118 MG/DL 70-110 H Performe d by certified GLUBED) 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 [facility] [id number] 13:09:00 Test Item Value Reference Range Interpretation Comments GLUBED (test code = 146 MG/DL 70-110 H Performe d by certified GLUBED) 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 [facility] - XR CHEST 2 [id number] 10:17:00 [facility]: 1935 Sex: M FAX: Navjot Byrd [phone] [place]: St: [facility] FAX: Shakeel Davis [phone] FAX: Luis Hoang MD [phone] Name: RADHA BLANCO [facility]: 1935 Age/S: 84/M [address] [place] [address] Blvd Unit #: [id number] Loc: G.5558 [place] [address] Phys: Luis Hoang MD Acct: [id number] Dis Date: Status: ADM IN PHONE #: [phone] Exam Date: 05/31/2020 0959 FAX #: [phone] Reason: sob EXAMS: CPT CODE: [id number] XR CHEST 2 V [id number] EXAM: XR CHEST 2 VIEWS DATE: 05/31/2020 8:46 AM : 1935; Age: 84 years y/o Male INDICATION: sob COMPARISON: May 16, 2020 TECHNIQUE: PA and lateral chest radiographs. Impression: Lines, tubes and hardware: Stable. Cardiomegaly with central venous congestion is seen. Hazy opacities throughout bilateral lungs, which may representedema or infiltrates. Layering bilateral pleural effusions are seen. Left more than right. Atherosclerotic changes are seen involving the aorta. at 1017 Reported and signed by: Donnell Naranjo D.O. CC: Navjot Cruz MD; Aris Ash MD; Luis Hoang MD Technologist: Sunshine Gerard, RT(R) Trnscrd Date/Time/By: 05/31/2020 (1017) : By: [email or web address] Orig Print D/T: S: 05/31/2020 (1020) PAGE 1 Signed [id number] 06:10:00 Test Item Value Reference Range Interpretation Comments GLUBED (test code = 136 MG/DL 70-110 H Performe d by certified GLUBED) 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 [facility] [id number] 18:09:00 Test Item Value Reference Range Interpretation Comments GLUBED (test code = 130 MG/DL 70-110 H Performe d by certified GLUBED) 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 [facility] [id number] 12:37:00 Test Item Value Reference Range Interpretation Comments GLUBED (test code = 155 MG/DL 70-110 H Performe d by certified GLUBED) 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 [facility] CBC W/AUTO [id number] 12:21:00 Test Item Value Reference Range Interpretation Comments WHITE BLOOD CELL (test code = 7.5 x10 3/uL 4.5-11.0 N WBC) RED BLOOD CELL (test code = 3.01 x10 6/uL 4.00-5.60 L RBC) HEMOGLOBIN (test code = HGB) 8.8 g/dL 12.5-16.9 L HEMATOCRIT (test code = HCT) 31.9 % 37.5-50.7 L MEAN CELL VOLUME (test code = 106.0 fL 81.0-99.0 H MCV) MEAN CELL HGB (test code = MCH) 29.2 pg 27.0-33.0 N MEAN CELL HGB CONCETRATION 27.6 g/dL 33.0-37.0 L (test code = MCHC) RED CELL DISTRIBUTION WIDTH CV 16.3 % 11.5-14.5 H (test code = RDW) RED CELL DISTRIBUTION WIDTH SD 62.7 fL 37.0-54.0 H (test code = RDW-SD) PLATELET COUNT (test code = 237 x10 3/uL 150-400 N PLT) MEAN PLATELET VOLUME (test code 10.0 fL 7.0-9.0 H = MPV) NEUTROPHIL % (test code = NT%) 62.1 % 56.0-77.0 N IMMATURE GRANULOCYTE % (test 0.3 % 0.0-2.0 N code = IG%) LYMPHOCYTE % (test code = LY%) 18.2 % 14.0-32.0 N MONOCYTE % (test code = MO%) 11.0 % 4.8-9.0 H EOSINOPHIL % (test code = EO%) 7.7 % 0.3-3.7 H BASOPHIL % (test code = BA%) 0.7 % 0.0-2.0 N NUCLEATED RBC % (test code = 0.0 % 0-0 N NRBC%) NEUTROPHIL # (test code = NT#) 4.69 x10 3/uL 2.0-7.6 N IMMATURE GRANULOCYTE # (test 0.02 x10 3/uL 0.00-0.03 N code = IG#) LYMPHOCYTE # (test code = LY#) 1.37 x10 3/uL 1.0-3.8 N MONOCYTE # (test code = MO#) 0.83 x10 3/uL 0.1-0.8 H EOSINOPHIL # (test code = EO#) 0.58 x10 3/uL 0.0-0.2 H BASOPHIL # (test code = BA#) 0.05 x10 3/uL 0.0-0.2 N NUCLEATED RBC # (test code = 0.00 x10 3/uL 0.0-0.1 N NRBC#) MANUAL DIFF REQUIRED (test code NO = MDIFF) RBC [id number] 12:21:00 Test Item Value Reference Range Interpretation Comments POLYCHROMASIA (test code = POLC) 2+ HYPOCHROMIA (test code = HYPO) 1+ ANISOCYTOSIS (test code = ANISO) 2+ MACROCYTOSIS (test code = MACR) 2+ CBC W/AUTO [id number] 08:06:00 Test Item Value Reference Range Interpretation Comments WHITE BLOOD CELL (test code = 7.5 x10 3/uL 4.5-11.0 N WBC) RED BLOOD CELL (test code = 3.01 x10 6/uL 4.00-5.60 L RBC) HEMOGLOBIN (test code = HGB) 8.8 g/dL 12.5-16.9 L HEMATOCRIT (test code = HCT) 31.9 % 37.5-50.7 L MEAN CELL VOLUME (test code = 106.0 fL 81.0-99.0 H MCV) MEAN CELL HGB (test code = MCH) 29.2 pg 27.0-33.0 N MEAN CELL HGB CONCETRATION 27.6 g/dL 33.0-37.0 L (test code = MCHC) RED CELL DISTRIBUTION WIDTH CV 16.3 % 11.5-14.5 H (test code = RDW) RED CELL DISTRIBUTION WIDTH SD 62.7 fL 37.0-54.0 H (test code = RDW-SD) PLATELET COUNT (test code = 237 x10 3/uL 150-400 N PLT) MEAN PLATELET VOLUME (test code 10.0 fL 7.0-9.0 H = MPV) NEUTROPHIL % (test code = NT%) 62.1 % 56.0-77.0 N IMMATURE GRANULOCYTE % (test 0.3 % 0.0-2.0 N code = IG%) LYMPHOCYTE % (test code = LY%) 18.2 % 14.0-32.0 N MONOCYTE % (test code = MO%) 11.0 % 4.8-9.0 H EOSINOPHIL % (test code = EO%) 7.7 % 0.3-3.7 H BASOPHIL % (test code = BA%) 0.7 % 0.0-2.0 N NUCLEATED RBC % (test code = 0.0 % 0-0 N NRBC%) NEUTROPHIL # (test code = NT#) 4.69 x10 3/uL 2.0-7.6 N IMMATURE GRANULOCYTE # (test 0.02 x10 3/uL 0.00-0.03 N code = IG#) LYMPHOCYTE # (test code = LY#) 1.37 x10 3/uL 1.0-3.8 N MONOCYTE # (test code = MO#) 0.83 x10 3/uL 0.1-0.8 H EOSINOPHIL # (test code = EO#) 0.58 x10 3/uL 0.0-0.2 H BASOPHIL # (test code = BA#) 0.05 x10 3/uL 0.0-0.2 N NUCLEATED RBC # (test code = 0.00 x10 3/uL 0.0-0.1 N NRBC#) MANUAL DIFF REQUIRED (test code NO = MDIFF) RBC [id number] 08:06:00 Test Item Value Reference Range Interpretation Comments ANISOCYTOSIS (test code = ANISO) CBC W/AUTO [id number] 08:06:00 Test Item Value Reference Range Interpretation Comments WHITE BLOOD CELL (test code = 7.5 x10 3/uL 4.5-11.0 N WBC) RED BLOOD CELL (test code = 3.01 x10 6/uL 4.00-5.60 L RBC) HEMOGLOBIN (test code = HGB) 8.8 g/dL 12.5-16.9 L HEMATOCRIT (test code = HCT) 31.9 % 37.5-50.7 L MEAN CELL VOLUME (test code = 106.0 fL 81.0-99.0 H MCV) MEAN CELL HGB (test code = MCH) 29.2 pg 27.0-33.0 N MEAN CELL HGB CONCETRATION 27.6 g/dL 33.0-37.0 L (test code = MCHC) RED CELL DISTRIBUTION WIDTH CV 16.3 % 11.5-14.5 H (test code = RDW) RED CELL DISTRIBUTION WIDTH SD 62.7 fL 37.0-54.0 H (test code = RDW-SD) PLATELET COUNT (test code = 237 x10 3/uL 150-400 N PLT) MEAN PLATELET VOLUME (test code 10.0 fL 7.0-9.0 H = MPV) NEUTROPHIL % (test code = NT%) 62.1 % 56.0-77.0 N IMMATURE GRANULOCYTE % (test 0.3 % 0.0-2.0 N code = IG%) LYMPHOCYTE % (test code = LY%) 18.2 % 14.0-32.0 N MONOCYTE % (test code = MO%) 11.0 % 4.8-9.0 H EOSINOPHIL % (test code = EO%) 7.7 % 0.3-3.7 H BASOPHIL % (test code = BA%) 0.7 % 0.0-2.0 N NUCLEATED RBC % (test code = 0.0 % 0-0 N NRBC%) NEUTROPHIL # (test code = NT#) 4.69 x10 3/uL 2.0-7.6 N IMMATURE GRANULOCYTE # (test 0.02 x10 3/uL 0.00-0.03 N code = IG#) LYMPHOCYTE # (test code = LY#) 1.37 x10 3/uL 1.0-3.8 N MONOCYTE # (test code = MO#) 0.83 x10 3/uL 0.1-0.8 H EOSINOPHIL # (test code = EO#) 0.58 x10 3/uL 0.0-0.2 H BASOPHIL # (test code = BA#) 0.05 x10 3/uL 0.0-0.2 N NUCLEATED RBC # (test code = 0.00 x10 3/uL 0.0-0.1 N NRBC#) MANUAL DIFF REQUIRED (test code NO = MDIFF) RBC [id number] 08:06:00 Test Item Value Reference Range Interpretation Comments ANISOCYTOSIS (test code = ANISO) RENAL FUNCTION [id number] 07:58:00 Test Item Value Reference Range Interpretation Comments SODIUM (test code = NA) 138 mEq/L 134-147 N POTASSIUM (test code = 4.4 mEq/L 3.4-5.0 N K) CHLORIDE (test code = 104 mEq/L 100-108 N CL) CARBON DIOXIDE (test 26 mEq/l 21-33 N code = CO2) ANION GAP (test code = 12 0-20 N GAP) GLUCOSE (test code = 125 mg/dL 70-110 H GLU) BLOOD UREA NITROGEN 44 mg/dL 7-18 H (test code = BUN) GLOMERULAR FILTRATION 10.4 70-80 L Units of measure = RATE (test code = GFR) ml/mi n/1.73 m2 CREATININE (test code = 5.3 mg/dL 0.6-1.3 H CREAT) ALBUMIN (test code = 2.20 g/dL 3.4-5.0 L ALB) CALCIUM (test code = 10.0 mg/dL 8.0-10.5 N CA) PHOSPHOROUS (test code 2.8 MG/DL 2.5-4.9 N = PHOS) [id number] 06:50:00 Test Item Value Reference Range Interpretation Comments GLUBED (test code = 127 MG/DL 70-110 H Performe d by certified GLUBED) 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 [facility] [id number] 23:55:00 Test Item Value Reference Range Interpretation Comments GLUBED (test code = 150 MG/DL 70-110 H Performe d by certified GLUBED) 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 [facility] [id number] 17:35:00 Test Item Value Reference Range Interpretation Comments GLUBED (test code = 136 MG/DL 70-110 H Performe d by certified GLUBED) 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 [facility] [id number] 12:47:00 Test Item Value Reference Range Interpretation Comments GLUBED (test code = 149 MG/DL 70-110 H Performe d by certified GLUBED) 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 [facility] CBC W/AUTO [id number] 08:25:00 Test Item Value Reference Range Interpretation Comments WHITE BLOOD CELL (test code = 8.0 x10 3/uL 4.5-11.0 N WBC) RED BLOOD CELL (test code = 2.94 x10 6/uL 4.00-5.60 L RBC) HEMOGLOBIN (test code = HGB) 8.6 g/dL 12.5-16.9 L HEMATOCRIT (test code = HCT) 28.5 % 37.5-50.7 L MEAN CELL VOLUME (test code = 96.9 fL 81.0-99.0 N MCV) MEAN CELL HGB (test code = MCH) 29.3 pg 27.0-33.0 N MEAN CELL HGB CONCETRATION 30.2 g/dL 33.0-37.0 L (test code = MCHC) RED CELL DISTRIBUTION WIDTH CV 16.0 % 11.5-14.5 H (test code = RDW) RED CELL DISTRIBUTION WIDTH SD 56.2 fL 37.0-54.0 H (test code = RDW-SD) PLATELET COUNT (test code = 293 x10 3/uL 150-400 N PLT) MEAN PLATELET VOLUME (test code 10.3 fL 7.0-9.0 H = MPV) NEUTROPHIL % (test code = NT%) 64.5 % 56.0-77.0 N IMMATURE GRANULOCYTE % (test 0.4 % 0.0-2.0 N code = IG%) LYMPHOCYTE % (test code = LY%) 16.8 % 14.0-32.0 N MONOCYTE % (test code = MO%) 11.3 % 4.8-9.0 H EOSINOPHIL % (test code = EO%) 6.4 % 0.3-3.7 H BASOPHIL % (test code = BA%) 0.6 % 0.0-2.0 N NUCLEATED RBC % (test code = 0.0 % 0-0 N NRBC%) NEUTROPHIL # (test code = NT#) 5.15 x10 3/uL 2.0-7.6 N IMMATURE GRANULOCYTE # (test 0.03 x10 3/uL 0.00-0.03 N code = IG#) LYMPHOCYTE # (test code = LY#) 1.34 x10 3/uL 1.0-3.8 N MONOCYTE # (test code = MO#) 0.90 x10 3/uL 0.1-0.8 H EOSINOPHIL # (test code = EO#) 0.51 x10 3/uL 0.0-0.2 H BASOPHIL # (test code = BA#) 0.05 x10 3/uL 0.0-0.2 N NUCLEATED RBC # (test code = 0.00 x10 3/uL 0.0-0.1 N NRBC#) MANUAL DIFF REQUIRED (test code NO = MDIFF) BASIC METABOLIC [id number] 08:14:00 Test Item Value Reference Range Interpretation Comments SODIUM (test code = NA) 142 mEq/L 134-147 N POTASSIUM (test code = 3.9 mEq/L 3.4-5.0 N K) CHLORIDE (test code = 105 mEq/L 100-108 N CL) CARBON DIOXIDE (test 29 mEq/l 21-33 N code = CO2) ANION GAP (test code = 12 0-20 N GAP) GLUCOSE (test code = 125 mg/dL 70-110 H GLU) BLOOD UREA NITROGEN 32 mg/dL 7-18 H (test code = BUN) GLOMERULAR FILTRATION 13.7 70-80 L Units of measure = RATE (test code = GFR) ml/mi n/1.73 m2 CREATININE (test code = 4.2 mg/dL 0.6-1.3 H CREAT) CALCIUM (test code = 10.3 mg/dL 8.0-10.5 N CA) [id number] 08:14:00 Test Item Value Reference Range Interpretation Comments MAGNESIUM (test code = MAG) 1.86 mg/dL 1.80-2.40 N CBC W/AUTO [id number] 08:13:00 Test Item Value Reference Range Interpretation Comments WHITE BLOOD CELL (test code = x10 3/uL 4.5-11.0 WBC) RED BLOOD CELL (test code = RBC) x10 6/uL 4.00-5.60 HEMOGLOBIN (test code = HGB) g/dL 12.5-16.9 HEMATOCRIT (test code = HCT) % 37.5-50.7 MEAN CELL VOLUME (test code = fL 81.0-99.0 MCV) MEAN CELL HGB (test code = MCH) pg 27.0-33.0 MEAN CELL HGB CONCETRATION (test g/dL 33.0-37.0 code = MCHC) RED CELL DISTRIBUTION WIDTH CV % 11.5-14.5 (test code = RDW) PLATELET COUNT (test code = PLT) 293 x10 3/uL 150-400 N NEUTROPHIL % (test code = NT%) % 56.0-77.0 LYMPHOCYTE % (test code = LY%) % 14.0-32.0 NEUTROPHIL # (test code = NT#) x10 3/uL 2.0-7.6 LYMPHOCYTE # (test code = LY#) x10 3/uL 1.0-3.8 MANUAL DIFF REQUIRED (test code = MDIFF) [id number] 06:03:00 Test Item Value Reference Range Interpretation Comments GLUBED (test code = 132 MG/DL 70-110 H Performe d by certified GLUBED) 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 [facility] [id number] 00:39:00 Test Item Value Reference Range Interpretation Comments GLUBED (test code = 140 MG/DL 70-110 H Performe d by certified GLUBED) 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 [facility] [id number] 17:48:00 Test Item Value Reference Range Interpretation Comments GLUBED (test code = 135 MG/DL 70-110 H Performe d by certified GLUBED) 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 [facility] [id number] 14:13:00 Test Item Value Reference Range Interpretation Comments GLUBED (test code = 171 MG/DL 70-110 H Performe d by certified GLUBED) 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 [facility] BASIC METABOLIC [id number] 08:17:00 Test Item Value Reference Range Interpretation Comments SODIUM (test code = NA) 138 mEq/L 134-147 N POTASSIUM (test code = 4.3 mEq/L 3.4-5.0 N K) CHLORIDE (test code = 103 mEq/L 100-108 N CL) CARBON DIOXIDE (test 28 mEq/l 21-33 N code = CO2) ANION GAP (test code = 12 0-20 N GAP) GLUCOSE (test code = 123 mg/dL 70-110 H GLU) BLOOD UREA NITROGEN 44 mg/dL 7-18 H (test code = BUN) GLOMERULAR FILTRATION 8.9 70-80 L Units of measure = RATE (test code = GFR) ml/mi n/1.73 m2 CREATININE (test code = 6.1 mg/dL 0.6-1.3 H CREAT) CALCIUM (test code = 10.6 mg/dL 8.0-10.5 H CA) [id number] 08:17:00 Test Item Value Reference Range Interpretation Comments MAGNESIUM (test code = MAG) 2.12 mg/dL 1.80-2.40 N CBC W/AUTO [id number] 07:02:00 Test Item Value Reference Range Interpretation Comments WHITE BLOOD CELL (test code = 7.8 x10 3/uL 4.5-11.0 N WBC) RED BLOOD CELL (test code = 3.11 x10 6/uL 4.00-5.60 L RBC) HEMOGLOBIN (test code = HGB) 9.2 g/dL 12.5-16.9 L HEMATOCRIT (test code = HCT) 30.5 % 37.5-50.7 L MEAN CELL VOLUME (test code = 98.1 fL 81.0-99.0 N MCV) MEAN CELL HGB (test code = MCH) 29.6 pg 27.0-33.0 N MEAN CELL HGB CONCETRATION 30.2 g/dL 33.0-37.0 L (test code = MCHC) RED CELL DISTRIBUTION WIDTH CV 15.9 % 11.5-14.5 H (test code = RDW) RED CELL DISTRIBUTION WIDTH SD 56.0 fL 37.0-54.0 H (test code = RDW-SD) PLATELET COUNT (test code = 284 x10 3/uL 150-400 N PLT) MEAN PLATELET VOLUME (test code 10.4 fL 7.0-9.0 H = MPV) NEUTROPHIL % (test code = NT%) 68.5 % 56.0-77.0 N IMMATURE GRANULOCYTE % (test 0.4 % 0.0-2.0 N code = IG%) LYMPHOCYTE % (test code = LY%) 15.2 % 14.0-32.0 N MONOCYTE % (test code = MO%) 7.9 % 4.8-9.0 N EOSINOPHIL % (test code = EO%) 7.4 % 0.3-3.7 H BASOPHIL % (test code = BA%) 0.6 % 0.0-2.0 N NUCLEATED RBC % (test code = 0.0 % 0-0 N NRBC%) NEUTROPHIL # (test code = NT#) 5.36 x10 3/uL 2.0-7.6 N IMMATURE GRANULOCYTE # (test 0.03 x10 3/uL 0.00-0.03 N code = IG#) LYMPHOCYTE # (test code = LY#) 1.19 x10 3/uL 1.0-3.8 N MONOCYTE # (test code = MO#) 0.62 x10 3/uL 0.1-0.8 N EOSINOPHIL # (test code = EO#) 0.58 x10 3/uL 0.0-0.2 H BASOPHIL # (test code = BA#) 0.05 x10 3/uL 0.0-0.2 N NUCLEATED RBC # (test code = 0.00 x10 3/uL 0.0-0.1 N NRBC#) MANUAL DIFF REQUIRED (test code NO = MDIFF) CBC W/AUTO [id number] 06:57:00 Test Item Value Reference Range Interpretation Comments WHITE BLOOD CELL (test code = x10 3/uL 4.5-11.0 WBC) RED BLOOD CELL (test code = RBC) x10 6/uL 4.00-5.60 HEMOGLOBIN (test code = HGB) g/dL 12.5-16.9 HEMATOCRIT (test code = HCT) % 37.5-50.7 MEAN CELL VOLUME (test code = fL 81.0-99.0 MCV) MEAN CELL HGB (test code = MCH) pg 27.0-33.0 MEAN CELL HGB CONCETRATION (test g/dL 33.0-37.0 code = MCHC) RED CELL DISTRIBUTION WIDTH CV % 11.5-14.5 (test code = RDW) PLATELET COUNT (test code = PLT) 284 x10 3/uL 150-400 N NEUTROPHIL % (test code = NT%) % 56.0-77.0 LYMPHOCYTE % (test code = LY%) % 14.0-32.0 NEUTROPHIL # (test code = NT#) x10 3/uL 2.0-7.6 LYMPHOCYTE # (test code = LY#) x10 3/uL 1.0-3.8 MANUAL DIFF REQUIRED (test code = MDIFF) [id number] 06:36:00 Test Item Value Reference Range Interpretation Comments GLUBED (test code = 122 MG/DL 70-110 H Performe d by certified GLUBED) 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 [facility] [id number] 00:19:00 Test Item Value Reference Range Interpretation Comments GLUBED (test code = 117 MG/DL 70-110 H Performe d by certified GLUBED) 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 [facility] HGB [id number] 19:12:00 Test Item Value Reference Range Interpretation Comments HEMOGLOBIN (test code = HGB) 9.3 g/dL 12.5-16.9 L HEMATOCRIT (test code = HCT) 30.7 % 37.5-50.7 L [id number] 17:24:00 Test Item Value Reference Range Interpretation Comments GLUBED (test code = 157 MG/DL 70-110 H Performe d by certified GLUBED) 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 [facility] [id number] 17:24:00 Test Item Value Reference Range Interpretation Comments GLUBED (test code = 194 MG/DL 70-110 H Performe d by certified GLUBED) 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 [facility] [id number] 12:24:00 Test Item Value Reference Range Interpretation Comments GLUBED (test code = 160 MG/DL 70-110 H Performe d by certified GLUBED) 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 [facility] CBC W/MANUAL [id number] 11:46:00 Test Item Value Reference Range Interpretation Comments WHITE BLOOD CELL (test code 8.5 x10 3/uL 4.5-11.0 N = WBC) RED BLOOD CELL (test code = 2.78 x10 6/uL 4.00-5.60 L RBC) HEMOGLOBIN (test code = 8.1 g/dL 12.5-16.9 L HGB) HEMATOCRIT (test code = 27.4 % 37.5-50.7 L HCT) MEAN CELL VOLUME (test code 98.6 fL 81.0-99.0 N = MCV) MEAN CELL HGB (test code = 29.1 pg 27.0-33.0 N MCH) MEAN CELL HGB CONCETRATION 29.6 g/dL 33.0-37.0 L (test code = MCHC) RED CELL DISTRIBUTION WIDTH 16.0 % 11.5-14.5 H CV (test code = RDW) RED CELL DISTRIBUTION WIDTH 57.2 fL 37.0-54.0 H SD (test code = RDW-SD) PLATELET COUNT (test code = 251 x10 3/uL 150-400 N PLT) MEAN PLATELET VOLUME (test 10.3 fL 7.0-9.0 H code = MPV) SEGMENTED NEUTROPHILS (test 72 % 37-69 H code = SEG) BAND NEUTROPHIL (test code 0.0 % 0.0-10.0 N = BAND) LYMPHOCYTE (test code = 13 % 23-55 L LYMPH) MONOCYTE (test code = MON) 8 % 0-10 N EOSINOPHIL (test code = 6 % 0.0-4.0 H EOS) BASOPHIL (test code = BASO) 1 % 0.0-2.0 N POLYCHROMASIA (test code = SLIGHT POLC) ANISOCYTOSIS (test code = 1+ ANISO) PLATELET ESTIMATE (test Adequate THOUSAND ADEQUATE code = PLTEST) CBC W/MANUAL [id number] 10:07:00 Test Item Value Reference Range Interpretation Comments WHITE BLOOD CELL (test code 8.5 x10 3/uL 4.5-11.0 N = WBC) RED BLOOD CELL (test code = 2.78 x10 6/uL 4.00-5.60 L RBC) HEMOGLOBIN (test code = 8.1 g/dL 12.5-16.9 L HGB) HEMATOCRIT (test code = 27.4 % 37.5-50.7 L HCT) MEAN CELL VOLUME (test code 98.6 fL 81.0-99.0 N = MCV) MEAN CELL HGB (test code = 29.1 pg 27.0-33.0 N MCH) MEAN CELL HGB CONCETRATION 29.6 g/dL 33.0-37.0 L (test code = MCHC) RED CELL DISTRIBUTION WIDTH 16.0 % 11.5-14.5 H CV (test code = RDW) RED CELL DISTRIBUTION WIDTH 57.2 fL 37.0-54.0 H SD (test code = RDW-SD) PLATELET COUNT (test code = 251 x10 3/uL 150-400 N PLT) MEAN PLATELET VOLUME (test 10.3 fL 7.0-9.0 H code = MPV) SEGMENTED NEUTROPHILS (test 72 % 37-69 H code = SEG) BAND NEUTROPHIL (test code % 0.0-10.0 = BAND) LYMPHOCYTE (test code = 13 % 23-55 L LYMPH) MONOCYTE (test code = MON) 8 % 0-10 N EOSINOPHIL (test code = 6 % 0.0-4.0 H EOS) BASOPHIL (test code = BASO) 1 % 0.0-2.0 N POLYCHROMASIA (test code = SLIGHT POLC) ANISOCYTOSIS (test code = 1+ ANISO) PLATELET ESTIMATE (test Adequate THOUSAND ADEQUATE code = PLTEST) BASIC METABOLIC [id number] 08:22:00 Test Item Value Reference Range Interpretation Comments SODIUM (test code = NA) 138 mEq/L 134-147 N POTASSIUM (test code = 3.9 mEq/L 3.4-5.0 N K) CHLORIDE (test code = 103 mEq/L 100-108 N CL) CARBON DIOXIDE (test 29 mEq/l 21-33 N code = CO2) ANION GAP (test code = 10 0-20 N GAP) GLUCOSE (test code = 121 mg/dL 70-110 H GLU) BLOOD UREA NITROGEN 36 mg/dL 7-18 H (test code = BUN) GLOMERULAR FILTRATION 11.2 70-80 L Units of measure = RATE (test code = GFR) ml/mi n/1.73 m2 CREATININE (test code = 5.0 mg/dL 0.6-1.3 H CREAT) CALCIUM (test code = 9.9 mg/dL 8.0-10.5 N CA) [id number] 08:22:00 Test Item Value Reference Range Interpretation Comments MAGNESIUM (test code = MAG) 1.93 mg/dL 1.80-2.40 N CBC W/MANUAL [id number] 07:54:00 Test Item Value Reference Range Interpretation Comments WHITE BLOOD CELL (test code = 8.5 x10 3/uL 4.5-11.0 N WBC) RED BLOOD CELL (test code = 2.78 x10 6/uL 4.00-5.60 L RBC) HEMOGLOBIN (test code = HGB) 8.1 g/dL 12.5-16.9 L HEMATOCRIT (test code = HCT) 27.4 % 37.5-50.7 L MEAN CELL VOLUME (test code = 98.6 fL 81.0-99.0 N MCV) MEAN CELL HGB (test code = MCH) 29.1 pg 27.0-33.0 N MEAN CELL HGB CONCETRATION 29.6 g/dL 33.0-37.0 L (test code = MCHC) RED CELL DISTRIBUTION WIDTH CV 16.0 % 11.5-14.5 H (test code = RDW) RED CELL DISTRIBUTION WIDTH SD 57.2 fL 37.0-54.0 H (test code = RDW-SD) PLATELET COUNT (test code = 251 x10 3/uL 150-400 N PLT) MEAN PLATELET VOLUME (test code 10.3 fL 7.0-9.0 H = MPV) BAND NEUTROPHIL (test code = % 0.0-10.0 BAND) ANISOCYTOSIS (test code = ANISO) PLATELET ESTIMATE (test code = THOUSAND ADEQUATE PLTEST) CBC W/MANUAL [id number] 07:25:00 Test Item Value Reference Range Interpretation Comments WHITE BLOOD CELL (test code = x10 3/uL 4.5-11.0 WBC) RED BLOOD CELL (test code = RBC) x10 6/uL 4.00-5.60 HEMOGLOBIN (test code = HGB) g/dL 12.5-16.9 HEMATOCRIT (test code = HCT) % 37.5-50.7 MEAN CELL VOLUME (test code = fL 81.0-99.0 MCV) MEAN CELL HGB (test code = MCH) pg 27.0-33.0 MEAN CELL HGB CONCETRATION (test g/dL 33.0-37.0 code = MCHC) RED CELL DISTRIBUTION WIDTH CV % 11.5-14.5 (test code = RDW) PLATELET COUNT (test code = PLT) 251 x10 3/uL 150-400 N BAND NEUTROPHIL (test code = % 0.0-10.0 BAND) ANISOCYTOSIS (test code = ANISO) PLATELET ESTIMATE (test code = THOUSAND ADEQUATE PLTEST) [id number] 05:56:00 Test Item Value Reference Range Interpretation Comments GLUBED (test code = 114 MG/DL 70-110 H Performe d by certified GLUBED) 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 [facility] [id number] 23:57:00 Test Item Value Reference Range Interpretation Comments GLUBED (test code = 59 MG/DL 70-110 L Performe d by certified GLUBED) 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 [facility] HGB [id number] 23:28:00 Test Item Value Reference Range Interpretation Comments HEMOGLOBIN (test code = HGB) 8.6 g/dL 12.5-16.9 L HEMATOCRIT (test code = HCT) 31.2 % 37.5-50.7 L [id number] 18:35:00 Test Item Value Reference Range Interpretation Comments GLUBED (test code = 136 MG/DL 70-110 H Performe d by certified GLUBED) 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 [facility] [id number] 12:35:00 Test Item Value Reference Range Interpretation Comments GLUBED (test code = 166 MG/DL 70-110 H Performe d by certified GLUBED) 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 [facility] [id number] 09:12:00 Test Item Value Reference Range Interpretation Comments GLUBED (test code = 143 MG/DL 70-110 H Performe d by certified GLUBED) 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 [facility] [id number] 05:39:00 Test Item Value Reference Range Interpretation Comments GLUBED (test code = 122 MG/DL 70-110 H Performe d by certified GLUBED) 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 [facility] BASIC METABOLIC [id number] 05:00:00 Test Item Value Reference Range Interpretation Comments SODIUM (test code = NA) 141 mEq/L 134-147 N POTASSIUM (test code = 3.9 mEq/L 3.4-5.0 N K) CHLORIDE (test code = 107 mEq/L 100-108 N CL) CARBON DIOXIDE (test 30 mEq/l 21-33 N code = CO2) ANION GAP (test code = 8 0-20 N GAP) GLUCOSE (test code = 138 mg/dL 70-110 H GLU) BLOOD UREA NITROGEN 31 mg/dL 7-18 H (test code = BUN) GLOMERULAR FILTRATION 14.9 70-80 L Units of measure = RATE (test code = GFR) ml/mi n/1.73 m2 CREATININE (test code = 3.9 mg/dL 0.6-1.3 H CREAT) CALCIUM (test code = 9.6 mg/dL 8.0-10.5 N CA) [id number] 05:00:00 Test Item Value Reference Range Interpretation Comments MAGNESIUM (test code = MAG) 1.72 mg/dL 1.80-2.40 L CBC W/AUTO [id number] 04:32:00 Test Item Value Reference Range Interpretation Comments WHITE BLOOD CELL (test code = 8.3 x10 3/uL 4.5-11.0 N WBC) RED BLOOD CELL (test code = 2.35 x10 6/uL 4.00-5.60 L RBC) HEMOGLOBIN (test code = HGB) 6.9 g/dL 12.5-16.9 L HEMATOCRIT (test code = HCT) 22.9 % 37.5-50.7 L MEAN CELL VOLUME (test code = 97.4 fL 81.0-99.0 N MCV) MEAN CELL HGB (test code = MCH) 29.4 pg 27.0-33.0 N MEAN CELL HGB CONCETRATION 30.1 g/dL 33.0-37.0 L (test code = MCHC) RED CELL DISTRIBUTION WIDTH CV 16.7 % 11.5-14.5 H (test code = RDW) RED CELL DISTRIBUTION WIDTH SD 59.0 fL 37.0-54.0 H (test code = RDW-SD) PLATELET COUNT (test code = 239 x10 3/uL 150-400 N PLT) MEAN PLATELET VOLUME (test code 9.9 fL 7.0-9.0 H = MPV) NEUTROPHIL % (test code = NT%) 67.8 % 56.0-77.0 N IMMATURE GRANULOCYTE % (test 0.4 % 0.0-2.0 N code = IG%) LYMPHOCYTE % (test code = LY%) 14.3 % 14.0-32.0 N MONOCYTE % (test code = MO%) 9.9 % 4.8-9.0 H EOSINOPHIL % (test code = EO%) 7.1 % 0.3-3.7 H BASOPHIL % (test code = BA%) 0.5 % 0.0-2.0 N NUCLEATED RBC % (test code = 0.0 % 0-0 N NRBC%) NEUTROPHIL # (test code = NT#) 5.61 x10 3/uL 2.0-7.6 N IMMATURE GRANULOCYTE # (test 0.03 x10 3/uL 0.00-0.03 N code = IG#) LYMPHOCYTE # (test code = LY#) 1.18 x10 3/uL 1.0-3.8 N MONOCYTE # (test code = MO#) 0.82 x10 3/uL 0.1-0.8 H EOSINOPHIL # (test code = EO#) 0.59 x10 3/uL 0.0-0.2 H BASOPHIL # (test code = BA#) 0.04 x10 3/uL 0.0-0.2 N NUCLEATED RBC # (test code = 0.00 x10 3/uL 0.0-0.1 N NRBC#) MANUAL DIFF REQUIRED (test code NO = MDIFF) [id number] 17:46:00 Test Item Value Reference Range Interpretation Comments GLUBED (test code = 162 MG/DL 70-110 H Performe d by certified GLUBED) 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 [facility] CBC W/AUTO [id number] 08:22:00 Test Item Value Reference Range Interpretation Comments WHITE BLOOD CELL (test code = 8.9 x10 3/uL 4.5-11.0 N WBC) RED BLOOD CELL (test code = 2.60 x10 6/uL 4.00-5.60 L RBC) HEMOGLOBIN (test code = HGB) 7.6 g/dL 12.5-16.9 L HEMATOCRIT (test code = HCT) 25.5 % 37.5-50.7 L MEAN CELL VOLUME (test code = 98.1 fL 81.0-99.0 MCV) MEAN CELL HGB (test code = MCH) 29.2 pg 27.0-33.0 N MEAN CELL HGB CONCETRATION 29.8 g/dL 33.0-37.0 L (test code = MCHC) RED CELL DISTRIBUTION WIDTH CV 16.9 % 11.5-14.5 H (test code = RDW) RED CELL DISTRIBUTION WIDTH SD 60.4 fL 37.0-54.0 H (test code = RDW-SD) PLATELET COUNT (test code = 260 x10 3/uL 150-400 N PLT) MEAN PLATELET VOLUME (test code 10.2 fL 7.0-9.0 H = MPV) NEUTROPHIL % (test code = NT%) 66.2 % 56.0-77.0 N IMMATURE GRANULOCYTE % (test 0.6 % 0.0-2.0 N code = IG%) LYMPHOCYTE % (test code = LY%) 14.8 % 14.0-32.0 N MONOCYTE % (test code = MO%) 10.3 % 4.8-9.0 H EOSINOPHIL % (test code = EO%) 7.6 % 0.3-3.7 H BASOPHIL % (test code = BA%) 0.5 % 0.0-2.0 N NUCLEATED RBC % (test code = 0.0 % 0-0 N NRBC%) NEUTROPHIL # (test code = NT#) 5.87 x10 3/uL 2.0-7.6 N IMMATURE GRANULOCYTE # (test 0.05 x10 3/uL 0.00-0.03 H code = IG#) LYMPHOCYTE # (test code = LY#) 1.31 x10 3/uL 1.0-3.8 N MONOCYTE # (test code = MO#) 0.91 x10 3/uL 0.1-0.8 H EOSINOPHIL # (test code = EO#) 0.67 x10 3/uL 0.0-0.2 H BASOPHIL # (test code = BA#) 0.04 x10 3/uL 0.0-0.2 N NUCLEATED RBC # (test code = 0.00 x10 3/uL 0.0-0.1 N NRBC#) MANUAL DIFF REQUIRED (test code NO = MDIFF) BASIC METABOLIC [id number] 07:49:00 Test Item Value Reference Range Interpretation Comments SODIUM (test code = 138 mEq/L 134-147 N NA) POTASSIUM (test code = 4.2 mEq/L 3.4-5.0 N SPECI MEN 1+ K) HEMOLYZED.Resul ts known to be adv ersely affected by hem olysis are: Potass ium Magnesium LDH Phosphorus CHLORIDE (test code = 105 mEq/L 100-108 N CL) CARBON DIOXIDE (test 24 mEq/l 21-33 N code = CO2) ANION GAP (test code = 13 0-20 N GAP) GLUCOSE (test code = 115 mg/dL 70-110 H GLU) BLOOD UREA NITROGEN 43 mg/dL 7-18 H (test code = BUN) GLOMERULAR FILTRATION 9.6 70-80 L Units of measure = RATE (test code = GFR) ml/mi n/1.73 m2 CREATININE (test code 5.7 mg/dL 0.6-1.3 H = CREAT) CALCIUM (test code = 10.0 mg/dL 8.0-10.5 N CA) [id number] 07:49:00 Test Item Value Reference Range Interpretation Comments MAGNESIUM (test code = MAG) 1.85 mg/dL 1.80-2.40 N [id number] 06:47:00 Test Item Value Reference Range Interpretation Comments GLUBED (test code = 115 MG/DL 70-110 H Performe d by certified GLUBED) 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 [facility] [id number] 01:45:00 Test Item Value Reference Range Interpretation Comments GLUBED (test code = 166 MG/DL 70-110 H Performe d by certified GLUBED) 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 [facility] [id number] 16:38:00 Test Item Value Reference Range Interpretation Comments GLUBED (test code = 140 MG/DL 70-110 H Performe d by certified GLUBED) 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 [facility] HGB [id number] 12:39:00 Test Item Value Reference Range Interpretation Comments HEMOGLOBIN (test code = HGB) 7.5 g/dL 12.5-16.9 L HEMATOCRIT (test code = HCT) 24.9 % 37.5-50.7 L [id number] 11:37:00 Test Item Value Reference Range Interpretation Comments GLUBED (test code = 229 MG/DL 70-110 H Performe d by certified GLUBED) 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 [facility] [id number] 07:27:00 Test Item Value Reference Range Interpretation Comments GLUBED (test code = 131 MG/DL 70-110 H Performe d by certified GLUBED) 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 [facility] BASIC METABOLIC [id number] 04:57:00 Test Item Value Reference Range Interpretation Comments SODIUM (test code = NA) 142 mEq/L 134-147 N POTASSIUM (test code = 3.7 mEq/L 3.4-5.0 N K) CHLORIDE (test code = 108 mEq/L 100-108 N CL) CARBON DIOXIDE (test 29 mEq/l 21-33 code = CO2) ANION GAP (test code = 9 0-20 N GAP) GLUCOSE (test code = 136 mg/dL 70-110 H GLU) BLOOD UREA NITROGEN 41 mg/dL 7-18 H (test code = BUN) GLOMERULAR FILTRATION 13.3 70-80 L Units of measure = RATE (test code = GFR) ml/mi n/1.73 m2 CREATININE (test code = 4.3 mg/dL 0.6-1.3 H CREAT) CALCIUM (test code = 9.6 mg/dL 8.0-10.5 N CA) CBC W/AUTO [id number] 04:36:00 Test Item Value Reference Range Interpretation Comments WHITE BLOOD CELL (test code = 8.5 x10 3/uL 4.5-11.0 N WBC) RED BLOOD CELL (test code = 2.46 x10 6/uL 4.00-5.60 L RBC) HEMOGLOBIN (test code = HGB) 7.1 g/dL 12.5-16.9 L HEMATOCRIT (test code = HCT) 22.8 % 37.5-50.7 L MEAN CELL VOLUME (test code = 92.7 fL 81.0-99.0 MCV) MEAN CELL HGB (test code = MCH) 28.9 pg 27.0-33.0 N MEAN CELL HGB CONCETRATION 31.1 g/dL 33.0-37.0 L (test code = MCHC) RED CELL DISTRIBUTION WIDTH CV 17.2 % 11.5-14.5 H (test code = RDW) RED CELL DISTRIBUTION WIDTH SD 58.6 fL 37.0-54.0 H (test code = RDW-SD) PLATELET COUNT (test code = 247 x10 3/uL 150-400 N PLT) MEAN PLATELET VOLUME (test code 9.8 fL 7.0-9.0 H = MPV) NEUTROPHIL % (test code = NT%) 68.1 % 56.0-77.0 N IMMATURE GRANULOCYTE % (test 0.2 % 0.0-2.0 N code = IG%) LYMPHOCYTE % (test code = LY%) 14.9 % 14.0-32.0 N MONOCYTE % (test code = MO%) 10.6 % 4.8-9.0 H EOSINOPHIL % (test code = EO%) 5.6 % 0.3-3.7 H BASOPHIL % (test code = BA%) 0.6 % 0.0-2.0 N NUCLEATED RBC % (test code = 0.0 % 0-0 N NRBC%) NEUTROPHIL # (test code = NT#) 5.79 x10 3/uL 2.0-7.6 N IMMATURE GRANULOCYTE # (test 0.02 x10 3/uL 0.00-0.03 N code = IG#) LYMPHOCYTE # (test code = LY#) 1.27 x10 3/uL 1.0-3.8 N MONOCYTE # (test code = MO#) 0.90 x10 3/uL 0.1-0.8 H EOSINOPHIL # (test code = EO#) 0.48 x10 3/uL 0.0-0.2 H BASOPHIL # (test code = BA#) 0.05 x10 3/uL 0.0-0.2 N NUCLEATED RBC # (test code = 0.00 x10 3/uL 0.0-0.1 N NRBC#) MANUAL DIFF REQUIRED (test code NO = MDIFF) [id number] 23:51:00 Test Item Value Reference Range Interpretation Comments GLUBED (test code = 135 MG/DL 70-110 H Performe d by certified GLUBED) 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 [facility] [id number] 20:01:00 Test Item Value Reference Range Interpretation Comments GLUBED (test code = 123 MG/DL 70-110 H Performe d by certified GLUBED) 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 [facility] [id number] 17:46:00 Test Item Value Reference Range Interpretation Comments GLUBED (test code = 168 MG/DL 70-110 H Performe d by certified GLUBED) 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 [facility] [id number] 12:47:00 Test Item Value Reference Range Interpretation Comments GLUBED (test code = 146 MG/DL 70-110 H Performe d by certified GLUBED) 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 [facility] COMPREHENSIVE METABOLIC [id number] 05:40:00 Test Item Value Reference Range Interpretation Comments SODIUM (test code = NA) 140 mEq/L 134-147 N POTASSIUM (test code = 4.5 mEq/L 3.4-5.0 N K) CHLORIDE (test code = 106 mEq/L 100-108 N CL) CARBON DIOXIDE (test 23 mEq/l 21-33 N code = CO2) ANION GAP (test code = 15 0-20 N GAP) GLUCOSE (test code = 128 mg/dL 70-110 H GLU) BLOOD UREA NITROGEN 66 mg/dL 7-18 H (test code = BUN) GLOMERULAR FILTRATION 9.4 70-80 L Units of measure = RATE (test code = GFR) ml/mi n/1.73 m2 CREATININE (test code = 5.8 mg/dL 0.6-1.3 H CREAT) TOTAL PROTEIN (test 5.6 g/dL 6.4-8.2 L code = PROT) ALBUMIN (test code = 2.40 g/dL 3.4-5.0 L ALB) CALCIUM (test code = 9.7 mg/dL 8.0-10.5 N CA) BILIRUBIN TOTAL (test 0.30 mg/dL 0.0-1.0 N code = BILT) SGOT/AST (test code = 25 IUnit/L 15-37 N AST) SGPT/ALT (test code = 13 IUnit/L 30-65 L ALT) ALKALINE PHOSPHATASE 78 IUnit/L 20-125 N TOTAL (test code = ALKP) [id number] 05:40:00 Test Item Value Reference Range Interpretation Comments PHOSPHOROUS (test code = PHOS) 4.9 MG/DL 2.5-4.9 N B-TYPE NATRIURETIC [id number] 05:39:00 Test Item Value Reference Range Interpretation Comments B-TYPE NATRIURETIC PEPTIDE (test 1151.0 PG/ML 0-100 H code = BNP) CBC W/AUTO [id number] 05:30:00 Test Item Value Reference Range Interpretation Comments WHITE BLOOD CELL (test code = 10.1 x10 3/uL 4.5-11.0 N WBC) RED BLOOD CELL (test code = 2.72 x10 6/uL 4.00-5.60 L RBC) HEMOGLOBIN (test code = HGB) 8.1 g/dL 12.5-16.9 L HEMATOCRIT (test code = HCT) 26.4 % 37.5-50.7 L MEAN CELL VOLUME (test code = 97.1 fL 81.0-99.0 N MCV) MEAN CELL HGB (test code = MCH) 29.8 pg 27.0-33.0 N MEAN CELL HGB CONCETRATION 30.7 g/dL 33.0-37.0 L (test code = MCHC) RED CELL DISTRIBUTION WIDTH CV 17.8 % 11.5-14.5 H (test code = RDW) RED CELL DISTRIBUTION WIDTH SD 62.4 fL 37.0-54.0 H (test code = RDW-SD) PLATELET COUNT (test code = 288 x10 3/uL 150-400 N PLT) MEAN PLATELET VOLUME (test code 10.3 fL 7.0-9.0 H = MPV) NEUTROPHIL % (test code = NT%) 79.0 % 56.0-77.0 H IMMATURE GRANULOCYTE % (test 0.3 % 0.0-2.0 N code = IG%) LYMPHOCYTE % (test code = LY%) 9.9 % 14.0-32.0 L MONOCYTE % (test code = MO%) 7.9 % 4.8-9.0 N EOSINOPHIL % (test code = EO%) 2.2 % 0.3-3.7 N BASOPHIL % (test code = BA%) 0.7 % 0.0-2.0 N NUCLEATED RBC % (test code = 0.0 % 0-0 N NRBC%) NEUTROPHIL # (test code = NT#) 8.01 x10 3/uL 2.0-7.6 H IMMATURE GRANULOCYTE # (test 0.03 x10 3/uL 0.00-0.03 N code = IG#) LYMPHOCYTE # (test code = LY#) 1.00 x10 3/uL 1.0-3.8 N MONOCYTE # (test code = MO#) 0.80 x10 3/uL 0.1-0.8 N EOSINOPHIL # (test code = EO#) 0.22 x10 3/uL 0.0-0.2 H BASOPHIL # (test code = BA#) 0.07 x10 3/uL 0.0-0.2 N NUCLEATED RBC # (test code = 0.00 x10 3/uL 0.0-0.1 N NRBC#) MANUAL DIFF REQUIRED (test code NO = MDIFF) CBC W/AUTO [id number] 05:28:00 Test Item Value Reference Range Interpretation Comments WHITE BLOOD CELL (test code = x10 3/uL 4.5-11.0 WBC) RED BLOOD CELL (test code = RBC) x10 6/uL 4.00-5.60 HEMOGLOBIN (test code = HGB) g/dL 12.5-16.9 HEMATOCRIT (test code = HCT) % 37.5-50.7 MEAN CELL VOLUME (test code = fL 81.0-99.0 MCV) MEAN CELL HGB (test code = MCH) pg 27.0-33.0 MEAN CELL HGB CONCETRATION (test g/dL 33.0-37.0 code = MCHC) RED CELL DISTRIBUTION WIDTH CV % 11.5-14.5 (test code = RDW) PLATELET COUNT (test code = PLT) 288 x10 3/uL 150-400 N NEUTROPHIL % (test code = NT%) % 56.0-77.0 LYMPHOCYTE % (test code = LY%) % 14.0-32.0 NEUTROPHIL # (test code = NT#) x10 3/uL 2.0-7.6 LYMPHOCYTE # (test code = LY#) x10 3/uL 1.0-3.8 MANUAL DIFF REQUIRED (test code = MDIFF) [id number] 21:17:00 Test Item Value Reference Range Interpretation Comments GLUBED (test code = 149 MG/DL 70-110 H Performe d by certified GLUBED) 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 [facility] [id number] 15:37:00 Test Item Value Reference Range Interpretation Comments GLUBED (test code = 151 MG/DL 70-110 H Performe d by certified GLUBED) 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 [facility] [id number] 15:36:00 Test Item Value Reference Range Interpretation Comments GLUBED (test code = 156 MG/DL 70-110 H Performe d by certified GLUBED) 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 [facility] [id number] 14:00:00 Test Item Value Reference Range Interpretation Comments ACT-ISTAT (test code 290 SEC 74-137 H Perform ed by certified = ACTI) 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 14:00:00 Test Item Value Reference Range Interpretation Comments ACT-ISTAT (test code 219 SEC 74-137 H Perform ed by certified = ACTI) 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 [facility] [id number] 13:22:00 Test Item Value Reference Range Interpretation Comments SODIUM (test code = NA/ABG) MEQ/L 134-147 [id number] 13:22:00 Test Item Value Reference Range Interpretation Comments POTASSIUM (test code = K/ABG) MEQ/L 3.4-5.0 CREATININE [id number] 13:22:00 Test Item Value Reference Range Interpretation Comments CREATININE ABG (test code = CREAABG) mg/dL 0.8-1.3 [id number] 13:22:00 Test Item Value Reference Range Interpretation Comments HEMOGLOBIN (test code = HGB/ABG) G/DL 12.5-16.9 [id number] 13:22:00 Test Item Value Reference Range Interpretation Comments HEMATOCRIT (test code = HCT/ABG) % 37.5-50.7 POC IONIZED [id number] 13:22:00 Test Item Value Reference Range Interpretation Comments POC IONIZED CALCIUM (test code = MMOL/L 1.12-1.32 POCCA) POC LACTIC [id number] 13:22:00 Test Item Value Reference Range Interpretation Comments POC LACTIC ACID (test code = POCLAC) mmol/l 0.9-1.7 POC [id number] 13:22:00 Test Item Value Reference Range Interpretation Comments POC GLUCOSE (test code = POCGLU) MG/DL 70-110 POC VENOUS BLOOD [id number] 13:22:00 Test Item Value Reference Range Interpretation Comments POC VENOUS BLOOD GAS PH (test 7.356 7.33-7.45 N code = POCPHV) POC VENOUS BLOOD GAS PCO2 (test 50.9 mmHg 43-47 H code = [id number]) POC VENOUS BLOOD GAS PO2 (test 35.4 mmHG 10-50 N code = ZAWTC4B) POC TCO2 VENOUS (test code = 30.1 [id number]) POC HCO3 VENOUS (test code = 28.5 MMOL/L 22-27 H [id number]) POC BASE EXCESS VENOUS (test code 2.6 MMOL/L -4.0-4.0 N = POCBEV) POC O2 SATURATION VENOUS (test 64.3 % 60-80 N code = [id number]) [id number] 13:22:00 Test Item Value Reference Range Interpretation Comments CHLORIDE (test code = CL/VBG) MEQ/L [id number] 13:22:00 Test Item Value Reference Range Interpretation Comments SODIUM (test code = NA/ABG) 139 MEQ/L 134-147 N [id number] 13:22:00 Test Item Value Reference Range Interpretation Comments POTASSIUM (test code = K/ABG) MEQ/L 3.4-5.0 CREATININE [id number] 13:22:00 Test Item Value Reference Range Interpretation Comments CREATININE ABG (test code = CREAABG) mg/dL 0.8-1.3 [id number] 13:22:00 Test Item Value Reference Range Interpretation Comments HEMOGLOBIN (test code = HGB/ABG) G/DL 12.5-16.9 [id number] 13:22:00 Test Item Value Reference Range Interpretation Comments HEMATOCRIT (test code = HCT/ABG) % 37.5-50.7 POC IONIZED [id number] 13:22:00 Test Item Value Reference Range Interpretation Comments POC IONIZED CALCIUM (test code = MMOL/L 1.12-1.32 POCCA) POC LACTIC [id number] 13:22:00 Test Item Value Reference Range Interpretation Comments POC LACTIC ACID (test code = POCLAC) mmol/l 0.9-1.7 POC [id number] 13:22:00 Test Item Value Reference Range Interpretation Comments POC GLUCOSE (test code = POCGLU) MG/DL 70-110 POC VENOUS BLOOD [id number] 13:22:00 Test Item Value Reference Range Interpretation Comments POC VENOUS BLOOD GAS PH (test 7.356 7.33-7.45 N code = POCPHV) POC VENOUS BLOOD GAS PCO2 (test 50.9 mmHg 43-47 H code = [id number]) POC VENOUS BLOOD GAS PO2 (test 35.4 mmHG 10-50 N code = CCYIB0I) POC TCO2 VENOUS (test code = 30.1 [id number]) POC HCO3 VENOUS (test code = 28.5 MMOL/L 22-27 H [id number]) POC BASE EXCESS VENOUS (test code 2.6 MMOL/L -4.0-4.0 N = POCBEV) POC O2 SATURATION VENOUS (test 64.3 % 60-80 N code = RXNH5BT) [id number] 13:22:00 Test Item Value Reference Range Interpretation Comments CHLORIDE (test code = CL/VBG) MEQ/L [id number] 13:22:00 Test Item Value Reference Range Interpretation Comments SODIUM (test code = NA/ABG) 139 MEQ/L 134-147 N [id number] 13:22:00 Test Item Value Reference Range Interpretation Comments POTASSIUM (test code = K/ABG) 3.8 MEQ/L 3.4-5.0 N CREATININE [id number] 13:22:00 Test Item Value Reference Range Interpretation Comments CREATININE ABG (test code = CREAABG) mg/dL 0.8-1.3 [id number] 13:22:00 Test Item Value Reference Range Interpretation Comments HEMOGLOBIN (test code = HGB/ABG) G/DL 12.5-16.9 [id number] 13:22:00 Test Item Value Reference Range Interpretation Comments HEMATOCRIT (test code = HCT/ABG) % 37.5-50.7 POC IONIZED [id number] 13:22:00 Test Item Value Reference Range Interpretation Comments POC IONIZED CALCIUM (test code = MMOL/L 1.12-1.32 POCCA) POC LACTIC [id number] 13:22:00 Test Item Value Reference Range Interpretation Comments POC LACTIC ACID (test code = POCLAC) mmol/l 0.9-1.7 POC [id number] 13:22:00 Test Item Value Reference Range Interpretation Comments POC GLUCOSE (test code = POCGLU) MG/DL 70-110 POC VENOUS BLOOD [id number] 13:22:00 Test Item Value Reference Range Interpretation Comments POC VENOUS BLOOD GAS PH (test 7.356 7.33-7.45 N code = POCPHV) POC VENOUS BLOOD GAS PCO2 (test 50.9 mmHg 43-47 H code = [id number]) POC VENOUS BLOOD GAS PO2 (test 35.4 mmHG 10-50 N code = IZKRN7T) POC TCO2 VENOUS (test code = 30.1 FEVXWV2M) POC HCO3 VENOUS (test code = 28.5 MMOL/L 22-27 H [id number]) POC BASE EXCESS VENOUS (test code 2.6 MMOL/L -4.0-4.0 N = POCBEV) POC O2 SATURATION VENOUS (test 64.3 % 60-80 N code = [id number]) [id number] 13:22:00 Test Item Value Reference Range Interpretation Comments CHLORIDE (test code = CL/VBG) MEQ/L [id number] 13:22:00 Test Item Value Reference Range Interpretation Comments SODIUM (test code = NA/ABG) 139 MEQ/L 134-147 N [id number] 13:22:00 Test Item Value Reference Range Interpretation Comments POTASSIUM (test code = K/ABG) 3.8 MEQ/L 3.4-5.0 N CREATININE [id number] 13:22:00 Test Item Value Reference Range Interpretation Comments CREATININE ABG (test code = CREAABG) mg/dL 0.8-1.3 [id number] 13:22:00 Test Item Value Reference Range Interpretation Comments HEMOGLOBIN (test code = HGB/ABG) G/DL 12.5-16.9 [id number] 13:22:00 Test Item Value Reference Range Interpretation Comments HEMATOCRIT (test code = HCT/ABG) % 37.5-50.7 POC IONIZED [id number] 13:22:00 Test Item Value Reference Range Interpretation Comments POC IONIZED CALCIUM (test code = 1.29 MMOL/L 1.12-1.32 N POCCA) POC LACTIC [id number] 13:22:00 Test Item Value Reference Range Interpretation Comments POC LACTIC ACID (test code = POCLAC) mmol/l 0.9-1.7 POC [id number] 13:22:00 Test Item Value Reference Range Interpretation Comments POC GLUCOSE (test code = POCGLU) MG/DL 70-110 POC VENOUS BLOOD [id number] 13:22:00 Test Item Value Reference Range Interpretation Comments POC VENOUS BLOOD GAS PH (test 7.356 7.33-7.45 N code = POCPHV) POC VENOUS BLOOD GAS PCO2 (test 50.9 mmHg 43-47 H code = QTQPUH1B) POC VENOUS BLOOD GAS PO2 (test 35.4 mmHG 10-50 N code = OPQIV1S) POC TCO2 VENOUS (test code = 30.1 [id number]) POC HCO3 VENOUS (test code = 28.5 MMOL/L 22-27 H [id number]) POC BASE EXCESS VENOUS (test code 2.6 MMOL/L -4.0-4.0 N = POCBEV) POC O2 SATURATION VENOUS (test 64.3 % 60-80 N code = [id number]) [id number] 13:22:00 Test Item Value Reference Range Interpretation Comments CHLORIDE (test code = CL/VBG) MEQ/L [id number] 13:22:00 Test Item Value Reference Range Interpretation Comments SODIUM (test code = NA/ABG) 139 MEQ/L 134-147 N [id number] 13:22:00 Test Item Value Reference Range Interpretation Comments POTASSIUM (test code = K/ABG) 3.8 MEQ/L 3.4-5.0 N CREATININE [id number] 13:22:00 Test Item Value Reference Range Interpretation Comments CREATININE ABG (test code = CREAABG) mg/dL 0.8-1.3 [id number] 13:22:00 Test Item Value Reference Range Interpretation Comments HEMOGLOBIN (test code = HGB/ABG) G/DL 12.5-16.9 [id number] 13:22:00 Test Item Value Reference Range Interpretation Comments HEMATOCRIT (test code = HCT/ABG) % 37.5-50.7 POC IONIZED [id number] 13:22:00 Test Item Value Reference Range Interpretation Comments POC IONIZED CALCIUM (test code = 1.29 MMOL/L 1.12-1.32 N POCCA) POC LACTIC [id number] 13:22:00 Test Item Value Reference Range Interpretation Comments POC LACTIC ACID (test code = POCLAC) mmol/l 0.9-1.7 POC [id number] 13:22:00 Test Item Value Reference Range Interpretation Comments POC GLUCOSE (test code = POCGLU) 128 MG/DL 70-110 H POC VENOUS BLOOD [id number] 13:22:00 Test Item Value Reference Range Interpretation Comments POC VENOUS BLOOD GAS PH (test 7.356 7.33-7.45 N code = POCPHV) POC VENOUS BLOOD GAS PCO2 (test 50.9 mmHg 43-47 H code = DVAZGU7P) POC VENOUS BLOOD GAS PO2 (test 35.4 mmHG 10-50 N code = XGECF7L) POC TCO2 VENOUS (test code = 30.1 KYTRMY8Y) POC HCO3 VENOUS (test code = 28.5 MMOL/L 22-27 H CBOZBC1D) POC BASE EXCESS VENOUS (test code 2.6 MMOL/L -4.0-4.0 N = POCBEV) POC O2 SATURATION VENOUS (test 64.3 % 60-80 N code = NJTM6BK) [id number] 13:22:00 Test Item Value Reference Range Interpretation Comments CHLORIDE (test code = CL/VBG) MEQ/L [id number] 13:22:00 Test Item Value Reference Range Interpretation Comments SODIUM (test code = NA/ABG) 139 MEQ/L 134-147 N [id number] 13:22:00 Test Item Value Reference Range Interpretation Comments POTASSIUM (test code = K/ABG) 3.8 MEQ/L 3.4-5.0 N CREATININE [id number] 13:22:00 Test Item Value Reference Range Interpretation Comments CREATININE ABG (test code = CREAABG) mg/dL 0.8-1.3 [id number] 13:22:00 Test Item Value Reference Range Interpretation Comments HEMOGLOBIN (test code = HGB/ABG) G/DL 12.5-16.9 [id number] 13:22:00 Test Item Value Reference Range Interpretation Comments HEMATOCRIT (test code = HCT/ABG) % 37.5-50.7 POC IONIZED [id number] 13:22:00 Test Item Value Reference Range Interpretation Comments POC IONIZED CALCIUM (test code = 1.29 MMOL/L 1.12-1.32 N POCCA) POC LACTIC [id number] 13:22:00 Test Item Value Reference Range Interpretation Comments POC LACTIC ACID (test code = 0.4 mmol/l 0.9-1.7 L POCLAC) POC [id number] 13:22:00 Test Item Value Reference Range Interpretation Comments POC GLUCOSE (test code = POCGLU) 128 MG/DL 70-110 H POC VENOUS BLOOD [id number] 13:22:00 Test Item Value Reference Range Interpretation Comments POC VENOUS BLOOD GAS PH (test 7.356 7.33-7.45 N code = POCPHV) POC VENOUS BLOOD GAS PCO2 (test 50.9 mmHg 43-47 H code = QPPOUZ0R) POC VENOUS BLOOD GAS PO2 (test 35.4 mmHG 10-50 N code = CAPQL0K) POC TCO2 VENOUS (test code = 30.1 QAFCLF3Y) POC HCO3 VENOUS (test code = 28.5 MMOL/L 22-27 H JPUUQO9Y) POC BASE EXCESS VENOUS (test code 2.6 MMOL/L -4.0-4.0 N = POCBEV) POC O2 SATURATION VENOUS (test 64.3 % 60-80 N code = QEFD3MD) [id number] 13:22:00 Test Item Value Reference Range Interpretation Comments CHLORIDE (test code = CL/VBG) MEQ/L [id number] 13:22:00 Test Item Value Reference Range Interpretation Comments SODIUM (test code = NA/ABG) 139 MEQ/L 134-147 N [id number] 13:22:00 Test Item Value Reference Range Interpretation Comments POTASSIUM (test code = K/ABG) 3.8 MEQ/L 3.4-5.0 N CREATININE [id number] 13:22:00 Test Item Value Reference Range Interpretation Comments CREATININE ABG (test code = CREAABG) mg/dL 0.8-1.3 [id number] 13:22:00 Test Item Value Reference Range Interpretation Comments HEMOGLOBIN (test code = HGB/ABG) G/DL 12.5-16.9 [id number] 13:22:00 Test Item Value Reference Range Interpretation Comments HEMATOCRIT (test code = HCT/ABG) 21 % 37.5-50.7 L POC IONIZED [id number] 13:22:00 Test Item Value Reference Range Interpretation Comments POC IONIZED CALCIUM (test code = 1.29 MMOL/L 1.12-1.32 N POCCA) POC LACTIC [id number] 13:22:00 Test Item Value Reference Range Interpretation Comments POC LACTIC ACID (test code = 0.4 mmol/l 0.9-1.7 L POCLAC) POC [id number] 13:22:00 Test Item Value Reference Range Interpretation Comments POC GLUCOSE (test code = POCGLU) 128 MG/DL 70-110 H POC VENOUS BLOOD [id number] 13:22:00 Test Item Value Reference Range Interpretation Comments POC VENOUS BLOOD GAS PH (test 7.356 7.33-7.45 N code = POCPHV) POC VENOUS BLOOD GAS PCO2 (test 50.9 mmHg 43-47 H code = KJLIVY6W) POC VENOUS BLOOD GAS PO2 (test 35.4 mmHG 10-50 N code = AKOFW2H) POC TCO2 VENOUS (test code = 30.1 WGQANI9N) POC HCO3 VENOUS (test code = 28.5 MMOL/L 22-27 H CZPIPZ4A) POC BASE EXCESS VENOUS (test code 2.6 MMOL/L -4.0-4.0 N = POCBEV) POC O2 SATURATION VENOUS (test 64.3 % 60-80 N code = JIYD3XB) [id number] 13:22:00 Test Item Value Reference Range Interpretation Comments CHLORIDE (test code = CL/VBG) MEQ/L [id number] 13:22:00 Test Item Value Reference Range Interpretation Comments SODIUM (test code = NA/ABG) 139 MEQ/L 134-147 N [id number] 13:22:00 Test Item Value Reference Range Interpretation Comments POTASSIUM (test code = K/ABG) 3.8 MEQ/L 3.4-5.0 N CREATININE [id number] 13:22:00 Test Item Value Reference Range Interpretation Comments CREATININE ABG (test code = CREAABG) mg/dL 0.8-1.3 [id number] 13:22:00 Test Item Value Reference Range Interpretation Comments HEMOGLOBIN (test code = HGB/ABG) 7.2 G/DL 12.5-16.9 L [id number] 13:22:00 Test Item Value Reference Range Interpretation Comments HEMATOCRIT (test code = HCT/ABG) 21 % 37.5-50.7 L POC IONIZED [id number] 13:22:00 Test Item Value Reference Range Interpretation Comments POC IONIZED CALCIUM (test code = 1.29 MMOL/L 1.12-1.32 N POCCA) POC LACTIC [id number] 13:22:00 Test Item Value Reference Range Interpretation Comments POC LACTIC ACID (test code = 0.4 mmol/l 0.9-1.7 L POCLAC) POC [id number] 13:22:00 Test Item Value Reference Range Interpretation Comments POC GLUCOSE (test code = POCGLU) 128 MG/DL 70-110 H POC VENOUS BLOOD [id number] 13:22:00 Test Item Value Reference Range Interpretation Comments POC VENOUS BLOOD GAS PH (test 7.356 7.33-7.45 N code = POCPHV) POC VENOUS BLOOD GAS PCO2 (test 50.9 mmHg 43-47 H code = SLNEWF9F) POC VENOUS BLOOD GAS PO2 (test 35.4 mmHG 10-50 N code = MZZHV9Q) POC TCO2 VENOUS (test code = 30.1 SMSRUR1C) POC HCO3 VENOUS (test code = 28.5 MMOL/L 22-27 H GNNXBD8E) POC BASE EXCESS VENOUS (test code 2.6 MMOL/L -4.0-4.0 N = POCBEV) POC O2 SATURATION VENOUS (test 64.3 % 60-80 N code = USXF5OM) [id number] 13:22:00 Test Item Value Reference Range Interpretation Comments CHLORIDE (test code = CL/VBG) MEQ/L [id number] 13:22:00 Test Item Value Reference Range Interpretation Comments SODIUM (test code = NA/ABG) 139 MEQ/L 134-147 N [id number] 13:22:00 Test Item Value Reference Range Interpretation Comments POTASSIUM (test code = K/ABG) 3.8 MEQ/L 3.4-5.0 N CREATININE [id number] 13:22:00 Test Item Value Reference Range Interpretation Comments CREATININE ABG (test code = CREAABG) mg/dL 0.8-1.3 [id number] 13:22:00 Test Item Value Reference Range Interpretation Comments HEMOGLOBIN (test code = HGB/ABG) 7.2 G/DL 12.5-16.9 L [id number] 13:22:00 Test Item Value Reference Range Interpretation Comments HEMATOCRIT (test code = HCT/ABG) 21 % 37.5-50.7 L POC IONIZED [id number] 13:22:00 Test Item Value Reference Range Interpretation Comments POC IONIZED CALCIUM (test code = 1.29 MMOL/L 1.12-1.32 N POCCA) POC LACTIC [id number] 13:22:00 Test Item Value Reference Range Interpretation Comments POC LACTIC ACID (test code = 0.4 mmol/l 0.9-1.7 L POCLAC) POC [id number] 13:22:00 Test Item Value Reference Range Interpretation Comments POC GLUCOSE (test code = POCGLU) 128 MG/DL 70-110 H POC VENOUS BLOOD [id number] 13:22:00 Test Item Value Reference Range Interpretation Comments POC VENOUS BLOOD GAS PH (test 7.356 7.33-7.45 N code = POCPHV) POC VENOUS BLOOD GAS PCO2 (test 50.9 mmHg 43-47 H code = RALWTR9Y) POC VENOUS BLOOD GAS PO2 (test 35.4 mmHG 10-50 N code = BWUBJ9L) POC TCO2 VENOUS (test code = 30.1 LKHJVE1A) POC HCO3 VENOUS (test code = 28.5 MMOL/L 22-27 H PQIBQF5R) POC BASE EXCESS VENOUS (test code 2.6 MMOL/L -4.0-4.0 N = POCBEV) POC O2 SATURATION VENOUS (test 64.3 % 60-80 N code = VWGO7VM) [id number] 13:22:00 Test Item Value Reference Range Interpretation Comments CHLORIDE (test code = CL/VBG) 104 MEQ/L [id number] 13:22:00 Test Item Value Reference Range Interpretation Comments SODIUM (test code = NA/ABG) 139 MEQ/L 134-147 N [id number] 13:22:00 Test Item Value Reference Range Interpretation Comments POTASSIUM (test code = K/ABG) 3.8 MEQ/L 3.4-5.0 N CREATININE [id number] 13:22:00 Test Item Value Reference Range Interpretation Comments CREATININE ABG (test code = 5.3 mg/dL 0.8-1.3 H CREAABG) [id number] 13:22:00 Test Item Value Reference Range Interpretation Comments HEMOGLOBIN (test code = HGB/ABG) 7.2 G/DL 12.5-16.9 L [id number] 13:22:00 Test Item Value Reference Range Interpretation Comments HEMATOCRIT (test code = HCT/ABG) 21 % 37.5-50.7 L POC IONIZED [id number] 13:22:00 Test Item Value Reference Range Interpretation Comments POC IONIZED CALCIUM (test code = 1.29 MMOL/L 1.12-1.32 N POCCA) POC LACTIC [id number] 13:22:00 Test Item Value Reference Range Interpretation Comments POC LACTIC ACID (test code = 0.4 mmol/l 0.9-1.7 L POCLAC) POC [id number] 13:22:00 Test Item Value Reference Range Interpretation Comments POC GLUCOSE (test code = POCGLU) 128 MG/DL 70-110 H POC VENOUS BLOOD [id number] 13:22:00 Test Item Value Reference Range Interpretation Comments POC VENOUS BLOOD GAS PH (test 7.356 7.33-7.45 N code = POCPHV) POC VENOUS BLOOD GAS PCO2 (test 50.9 mmHg 43-47 H code = IRRHNJ7E) POC VENOUS BLOOD GAS PO2 (test 35.4 mmHG 10-50 N code = YCKFJ6F) POC TCO2 VENOUS (test code = 30.1 BMEREF7M) POC HCO3 VENOUS (test code = 28.5 MMOL/L 22-27 H IAGZDV6V) POC BASE EXCESS VENOUS (test code 2.6 MMOL/L -4.0-4.0 N = POCBEV) POC O2 SATURATION VENOUS (test 64.3 % 60-80 N code = VLPF0FZ) [id number] 13:22:00 Test Item Value Reference Range Interpretation Comments CHLORIDE (test code = CL/VBG) 104 MEQ/L POC ARTERIAL BLOOD [id number] 12:48:00 Test Item Value Reference Range Interpretation Comments POC ARTERIAL BLOOD GAS PH (test 7.406 7.35-7.45 N code = POCPHA) POC ARTERIAL BLOOD GAS PCO2 (test 43.4 mmHg 35.0-45 N code = RMSOOW1W) POC TCO2 ARTERIAL (test code = 28.6 POCTCO2) POC ARTERIAL BLOOD GAS PO2 (test 115.1 mmHg 80-100.0 H code = RPXEC9T) POC HCO3 ARTERIAL (test code = 27.3 MMOL/L 22.0-26.0 H IPHFIE7Z) POC BASE EXCESS (test code = 2.3 MMOL/L -4.0-4.0 N POCBEA) POC O2 SATURATION (test code = 98.5 % 90-100 N POCO2S) [id number] 12:48:00 Test Item Value Reference Range Interpretation Comments SODIUM (test code = NA/ABG) MEQ/L 134-147 [id number] 12:48:00 Test Item Value Reference Range Interpretation Comments POTASSIUM (test code = K/ABG) MEQ/L 3.4-5.0 [id number] 12:48:00 Test Item Value Reference Range Interpretation Comments CHLORIDE (test code = CL/ABG) MEQ/L 100-108 CREATININE [id number] 12:48:00 Test Item Value Reference Range Interpretation Comments CREATININE ABG (test code = CREAABG) mg/dL 0.8-1.3 [id number] 12:48:00 Test Item Value Reference Range Interpretation Comments HEMOGLOBIN (test code = HGB/ABG) G/DL 12.5-16.9 [id number] 12:48:00 Test Item Value Reference Range Interpretation Comments HEMATOCRIT (test code = HCT/ABG) % 37.5-50.7 POC IONIZED [id number] 12:48:00 Test Item Value Reference Range Interpretation Comments POC IONIZED CALCIUM (test code = MMOL/L 1.12-1.32 POCCA) POC LACTIC [id number] 12:48:00 Test Item Value Reference Range Interpretation Comments POC LACTIC ACID (test code = POCLAC) mmol/l 0.9-1.7 POC [id number] 12:48:00 Test Item Value Reference Range Interpretation Comments POC GLUCOSE (test code = POCGLU) MG/DL 70-110 POC ARTERIAL BLOOD [id number] 12:48:00 Test Item Value Reference Range Interpretation Comments POC ARTERIAL BLOOD GAS PH (test 7.406 7.35-7.45 N code = POCPHA) POC ARTERIAL BLOOD GAS PCO2 (test 43.4 mmHg 35.0-45 N code = AYDCHK4F) POC TCO2 ARTERIAL (test code = 28.6 POCTCO2) POC ARTERIAL BLOOD GAS PO2 (test 115.1 mmHg 80-100.0 H code = JRYHE1O) POC HCO3 ARTERIAL (test code = 27.3 MMOL/L 22.0-26.0 H XCUHTW3U) POC BASE EXCESS (test code = 2.3 MMOL/L -4.0-4.0 N POCBEA) POC O2 SATURATION (test code = 98.5 % 90-100 N POCO2S) [id number] 12:48:00 Test Item Value Reference Range Interpretation Comments SODIUM (test code = NA/ABG) 138 MEQ/L 134-147 N [id number] 12:48:00 Test Item Value Reference Range Interpretation Comments POTASSIUM (test code = K/ABG) MEQ/L 3.4-5.0 [id number] 12:48:00 Test Item Value Reference Range Interpretation Comments CHLORIDE (test code = CL/ABG) MEQ/L 100-108 CREATININE [id number] 12:48:00 Test Item Value Reference Range Interpretation Comments CREATININE ABG (test code = CREAABG) mg/dL 0.8-1.3 [id number] 12:48:00 Test Item Value Reference Range Interpretation Comments HEMOGLOBIN (test code = HGB/ABG) G/DL 12.5-16.9 [id number] 12:48:00 Test Item Value Reference Range Interpretation Comments HEMATOCRIT (test code = HCT/ABG) % 37.5-50.7 POC IONIZED [id number] 12:48:00 Test Item Value Reference Range Interpretation Comments POC IONIZED CALCIUM (test code = MMOL/L 1.12-1.32 POCCA) POC LACTIC [id number] 12:48:00 Test Item Value Reference Range Interpretation Comments POC LACTIC ACID (test code = POCLAC) mmol/l 0.9-1.7 POC [id number] 12:48:00 Test Item Value Reference Range Interpretation Comments POC GLUCOSE (test code = POCGLU) MG/DL 70-110 POC ARTERIAL BLOOD [id number] 12:48:00 Test Item Value Reference Range Interpretation Comments POC ARTERIAL BLOOD GAS PH (test 7.406 7.35-7.45 N code = POCPHA) POC ARTERIAL BLOOD GAS PCO2 (test 43.4 mmHg 35.0-45 N code = FQNKEI9C) POC TCO2 ARTERIAL (test code = 28.6 POCTCO2) POC ARTERIAL BLOOD GAS PO2 (test 115.1 mmHg 80-100.0 H code = CEOTY9R) POC HCO3 ARTERIAL (test code = 27.3 MMOL/L 22.0-26.0 H KJIWTX1V) POC BASE EXCESS (test code = 2.3 MMOL/L -4.0-4.0 N POCBEA) POC O2 SATURATION (test code = 98.5 % 90-100 N POCO2S) [id number] 12:48:00 Test Item Value Reference Range Interpretation Comments SODIUM (test code = NA/ABG) 138 MEQ/L 134-147 N [id number] 12:48:00 Test Item Value Reference Range Interpretation Comments POTASSIUM (test code = K/ABG) 4.0 MEQ/L 3.4-5.0 N [id number] 12:48:00 Test Item Value Reference Range Interpretation Comments CHLORIDE (test code = CL/ABG) MEQ/L 100-108 CREATININE [id number] 12:48:00 Test Item Value Reference Range Interpretation Comments CREATININE ABG (test code = CREAABG) mg/dL 0.8-1.3 [id number] 12:48:00 Test Item Value Reference Range Interpretation Comments HEMOGLOBIN (test code = HGB/ABG) G/DL 12.5-16.9 [id number] 12:48:00 Test Item Value Reference Range Interpretation Comments HEMATOCRIT (test code = HCT/ABG) % 37.5-50.7 POC IONIZED [id number] 12:48:00 Test Item Value Reference Range Interpretation Comments POC IONIZED CALCIUM (test code = MMOL/L 1.12-1.32 POCCA) POC LACTIC [id number] 12:48:00 Test Item Value Reference Range Interpretation Comments POC LACTIC ACID (test code = POCLAC) mmol/l 0.9-1.7 POC [id number] 12:48:00 Test Item Value Reference Range Interpretation Comments POC GLUCOSE (test code = POCGLU) MG/DL 70-110 POC ARTERIAL BLOOD [id number] 12:48:00 Test Item Value Reference Range Interpretation Comments POC ARTERIAL BLOOD GAS PH (test 7.406 7.35-7.45 N code = POCPHA) POC ARTERIAL BLOOD GAS PCO2 (test 43.4 mmHg 35.0-45 N code = MORKJM9U) POC TCO2 ARTERIAL (test code = 28.6 POCTCO2) POC ARTERIAL BLOOD GAS PO2 (test 115.1 mmHg 80-100.0 H code = NRHYP1C) POC HCO3 ARTERIAL (test code = 27.3 MMOL/L 22.0-26.0 H YVJFFV4V) POC BASE EXCESS (test code = 2.3 MMOL/L -4.0-4.0 N POCBEA) POC O2 SATURATION (test code = 98.5 % 90-100 N POCO2S) [id number] 12:48:00 Test Item Value Reference Range Interpretation Comments SODIUM (test code = NA/ABG) 138 MEQ/L 134-147 N [id number] 12:48:00 Test Item Value Reference Range Interpretation Comments POTASSIUM (test code = K/ABG) 4.0 MEQ/L 3.4-5.0 N [id number] 12:48:00 Test Item Value Reference Range Interpretation Comments CHLORIDE (test code = CL/ABG) MEQ/L 100-108 CREATININE [id number] 12:48:00 Test Item Value Reference Range Interpretation Comments CREATININE ABG (test code = CREAABG) mg/dL 0.8-1.3 [id number] 12:48:00 Test Item Value Reference Range Interpretation Comments HEMOGLOBIN (test code = HGB/ABG) G/DL 12.5-16.9 [id number] 12:48:00 Test Item Value Reference Range Interpretation Comments HEMATOCRIT (test code = HCT/ABG) % 37.5-50.7 POC IONIZED [id number] 12:48:00 Test Item Value Reference Range Interpretation Comments POC IONIZED CALCIUM (test code = 1.30 MMOL/L 1.12-1.32 N POCCA) POC LACTIC [id number] 12:48:00 Test Item Value Reference Range Interpretation Comments POC LACTIC ACID (test code = POCLAC) mmol/l 0.9-1.7 POC [id number] 12:48:00 Test Item Value Reference Range Interpretation Comments POC GLUCOSE (test code = POCGLU) MG/DL 70-110 POC ARTERIAL BLOOD [id number] 12:48:00 Test Item Value Reference Range Interpretation Comments POC ARTERIAL BLOOD GAS PH (test 7.406 7.35-7.45 N code = POCPHA) POC ARTERIAL BLOOD GAS PCO2 (test 43.4 mmHg 35.0-45 N code = RWEZPY6L) POC TCO2 ARTERIAL (test code = 28.6 POCTCO2) POC ARTERIAL BLOOD GAS PO2 (test 115.1 mmHg 80-100.0 H code = PMWSQ1M) POC HCO3 ARTERIAL (test code = 27.3 MMOL/L 22.0-26.0 H BUULFM7E) POC BASE EXCESS (test code = 2.3 MMOL/L -4.0-4.0 N POCBEA) POC O2 SATURATION (test code = 98.5 % 90-100 N POCO2S) [id number] 12:48:00 Test Item Value Reference Range Interpretation Comments SODIUM (test code = NA/ABG) 138 MEQ/L 134-147 N [id number] 12:48:00 Test Item Value Reference Range Interpretation Comments POTASSIUM (test code = K/ABG) 4.0 MEQ/L 3.4-5.0 N [id number] 12:48:00 Test Item Value Reference Range Interpretation Comments CHLORIDE (test code = CL/ABG) MEQ/L 100-108 CREATININE [id number] 12:48:00 Test Item Value Reference Range Interpretation Comments CREATININE ABG (test code = CREAABG) mg/dL 0.8-1.3 [id number] 12:48:00 Test Item Value Reference Range Interpretation Comments HEMOGLOBIN (test code = HGB/ABG) G/DL 12.5-16.9 [id number] 12:48:00 Test Item Value Reference Range Interpretation Comments HEMATOCRIT (test code = HCT/ABG) % 37.5-50.7 POC IONIZED [id number] 12:48:00 Test Item Value Reference Range Interpretation Comments POC IONIZED CALCIUM (test code = 1.30 MMOL/L 1.12-1.32 N POCCA) POC LACTIC [id number] 12:48:00 Test Item Value Reference Range Interpretation Comments POC LACTIC ACID (test code = POCLAC) mmol/l 0.9-1.7 POC [id number] 12:48:00 Test Item Value Reference Range Interpretation Comments POC GLUCOSE (test code = POCGLU) 131 MG/DL 70-110 H POC ARTERIAL BLOOD [id number] 12:48:00 Test Item Value Reference Range Interpretation Comments POC ARTERIAL BLOOD GAS PH (test 7.406 7.35-7.45 N code = POCPHA) POC ARTERIAL BLOOD GAS PCO2 (test 43.4 mmHg 35.0-45 N code = SUREYD1V) POC TCO2 ARTERIAL (test code = 28.6 POCTCO2) POC ARTERIAL BLOOD GAS PO2 (test 115.1 mmHg 80-100.0 H code = WQZHG9G) POC HCO3 ARTERIAL (test code = 27.3 MMOL/L 22.0-26.0 H NKHEDN3M) POC BASE EXCESS (test code = 2.3 MMOL/L -4.0-4.0 N POCBEA) POC O2 SATURATION (test code = 98.5 % 90-100 N POCO2S) [id number] 12:48:00 Test Item Value Reference Range Interpretation Comments SODIUM (test code = NA/ABG) 138 MEQ/L 134-147 N [id number] 12:48:00 Test Item Value Reference Range Interpretation Comments POTASSIUM (test code = K/ABG) 4.0 MEQ/L 3.4-5.0 N [id number] 12:48:00 Test Item Value Reference Range Interpretation Comments CHLORIDE (test code = CL/ABG) MEQ/L 100-108 CREATININE [id number] 12:48:00 Test Item Value Reference Range Interpretation Comments CREATININE ABG (test code = CREAABG) mg/dL 0.8-1.3 [id number] 12:48:00 Test Item Value Reference Range Interpretation Comments HEMOGLOBIN (test code = HGB/ABG) G/DL 12.5-16.9 [id number] 12:48:00 Test Item Value Reference Range Interpretation Comments HEMATOCRIT (test code = HCT/ABG) % 37.5-50.7 POC IONIZED [id number] 12:48:00 Test Item Value Reference Range Interpretation Comments POC IONIZED CALCIUM (test code = 1.30 MMOL/L 1.12-1.32 N POCCA) POC LACTIC [id number] 12:48:00 Test Item Value Reference Range Interpretation Comments POC LACTIC ACID (test code = 0.6 mmol/l 0.9-1.7 L POCLAC) POC [id number] 12:48:00 Test Item Value Reference Range Interpretation Comments POC GLUCOSE (test code = POCGLU) 131 MG/DL 70-110 H POC ARTERIAL BLOOD [id number] 12:48:00 Test Item Value Reference Range Interpretation Comments POC ARTERIAL BLOOD GAS PH (test 7.406 7.35-7.45 N code = POCPHA) POC ARTERIAL BLOOD GAS PCO2 (test 43.4 mmHg 35.0-45 N code = CJNOAL5N) POC TCO2 ARTERIAL (test code = 28.6 POCTCO2) POC ARTERIAL BLOOD GAS PO2 (test 115.1 mmHg 80-100.0 H code = TDKLU9R) POC HCO3 ARTERIAL (test code = 27.3 MMOL/L 22.0-26.0 H NZLHCV0X) POC BASE EXCESS (test code = 2.3 MMOL/L -4.0-4.0 N POCBEA) POC O2 SATURATION (test code = 98.5 % 90-100 N POCO2S) [id number] 12:48:00 Test Item Value Reference Range Interpretation Comments SODIUM (test code = NA/ABG) 138 MEQ/L 134-147 N [id number] 12:48:00 Test Item Value Reference Range Interpretation Comments POTASSIUM (test code = K/ABG) 4.0 MEQ/L 3.4-5.0 N [id number] 12:48:00 Test Item Value Reference Range Interpretation Comments CHLORIDE (test code = CL/ABG) MEQ/L 100-108 CREATININE [id number] 12:48:00 Test Item Value Reference Range Interpretation Comments CREATININE ABG (test code = CREAABG) mg/dL 0.8-1.3 [id number] 12:48:00 Test Item Value Reference Range Interpretation Comments HEMOGLOBIN (test code = HGB/ABG) G/DL 12.5-16.9 [id number] 12:48:00 Test Item Value Reference Range Interpretation Comments HEMATOCRIT (test code = HCT/ABG) 23 % 37.5-50.7 L POC IONIZED [id number] 12:48:00 Test Item Value Reference Range Interpretation Comments POC IONIZED CALCIUM (test code = 1.30 MMOL/L 1.12-1.32 N POCCA) POC LACTIC [id number] 12:48:00 Test Item Value Reference Range Interpretation Comments POC LACTIC ACID (test code = 0.6 mmol/l 0.9-1.7 L POCLAC) POC [id number] 12:48:00 Test Item Value Reference Range Interpretation Comments POC GLUCOSE (test code = POCGLU) 131 MG/DL 70-110 H POC ARTERIAL BLOOD [id number] 12:48:00 Test Item Value Reference Range Interpretation Comments POC ARTERIAL BLOOD GAS PH (test 7.406 7.35-7.45 N code = POCPHA) POC ARTERIAL BLOOD GAS PCO2 (test 43.4 mmHg 35.0-45 N code = [id number]) POC TCO2 ARTERIAL (test code = 28.6 POCTCO2) POC ARTERIAL BLOOD GAS PO2 (test 115.1 mmHg 80-100.0 H code = VJYAV3U) POC HCO3 ARTERIAL (test code = 27.3 MMOL/L 22.0-26.0 H [id number]) POC BASE EXCESS (test code = 2.3 MMOL/L -4.0-4.0 N POCBEA) POC O2 SATURATION (test code = 98.5 % 90-100 N POCO2S) [id number] 12:48:00 Test Item Value Reference Range Interpretation Comments SODIUM (test code = NA/ABG) 138 MEQ/L 134-147 N [id number] 12:48:00 Test Item Value Reference Range Interpretation Comments POTASSIUM (test code = K/ABG) 4.0 MEQ/L 3.4-5.0 N [id number] 12:48:00 Test Item Value Reference Range Interpretation Comments CHLORIDE (test code = CL/ABG) MEQ/L 100-108 CREATININE [id number] 12:48:00 Test Item Value Reference Range Interpretation Comments CREATININE ABG (test code = CREAABG) mg/dL 0.8-1.3 [id number] 12:48:00 Test Item Value Reference Range Interpretation Comments HEMOGLOBIN (test code = HGB/ABG) 7.7 G/DL 12.5-16.9 L [id number] 12:48:00 Test Item Value Reference Range Interpretation Comments HEMATOCRIT (test code = HCT/ABG) 23 % 37.5-50.7 L POC IONIZED [id number] 12:48:00 Test Item Value Reference Range Interpretation Comments POC IONIZED CALCIUM (test code = 1.30 MMOL/L 1.12-1.32 N POCCA) POC LACTIC [id number] 12:48:00 Test Item Value Reference Range Interpretation Comments POC LACTIC ACID (test code = 0.6 mmol/l 0.9-1.7 L POCLAC) POC [id number] 12:48:00 Test Item Value Reference Range Interpretation Comments POC GLUCOSE (test code = POCGLU) 131 MG/DL 70-110 H POC ARTERIAL BLOOD [id number] 12:48:00 Test Item Value Reference Range Interpretation Comments POC ARTERIAL BLOOD GAS PH (test 7.406 7.35-7.45 N code = POCPHA) POC ARTERIAL BLOOD GAS PCO2 (test 43.4 mmHg 35.0-45 N code = [id number]) POC TCO2 ARTERIAL (test code = 28.6 POCTCO2) POC ARTERIAL BLOOD GAS PO2 (test 115.1 mmHg 80-100.0 H code = [id number]) POC HCO3 ARTERIAL (test code = 27.3 MMOL/L 22.0-26.0 H [id number]) POC BASE EXCESS (test code = 2.3 MMOL/L -4.0-4.0 N POCBEA) POC O2 SATURATION (test code = 98.5 % 90-100 N POCO2S) [id number] 12:48:00 Test Item Value Reference Range Interpretation Comments SODIUM (test code = NA/ABG) 138 MEQ/L 134-147 N [id number] 12:48:00 Test Item Value Reference Range Interpretation Comments POTASSIUM (test code = K/ABG) 4.0 MEQ/L 3.4-5.0 N [id number] 12:48:00 Test Item Value Reference Range Interpretation Comments CHLORIDE (test code = CL/ABG) 104 MEQ/L 100-108 N CREATININE [id number] 12:48:00 Test Item Value Reference Range Interpretation Comments CREATININE ABG (test code = CREAABG) mg/dL 0.8-1.3 [id number] 12:48:00 Test Item Value Reference Range Interpretation Comments HEMOGLOBIN (test code = HGB/ABG) 7.7 G/DL 12.5-16.9 L [id number] 12:48:00 Test Item Value Reference Range Interpretation Comments HEMATOCRIT (test code = HCT/ABG) 23 % 37.5-50.7 L POC IONIZED [id number] 12:48:00 Test Item Value Reference Range Interpretation Comments POC IONIZED CALCIUM (test code = 1.30 MMOL/L 1.12-1.32 N POCCA) POC LACTIC [id number] 12:48:00 Test Item Value Reference Range Interpretation Comments POC LACTIC ACID (test code = 0.6 mmol/l 0.9-1.7 L POCLAC) POC [id number] 12:48:00 Test Item Value Reference Range Interpretation Comments POC GLUCOSE (test code = POCGLU) 131 MG/DL 70-110 H POC ARTERIAL BLOOD [id number] 12:48:00 Test Item Value Reference Range Interpretation Comments POC ARTERIAL BLOOD GAS PH (test 7.406 7.35-7.45 N code = POCPHA) POC ARTERIAL BLOOD GAS PCO2 (test 43.4 mmHg 35.0-45 N code = EBJENI2G) POC TCO2 ARTERIAL (test code = 28.6 POCTCO2) POC ARTERIAL BLOOD GAS PO2 (test 115.1 mmHg 80-100.0 H code = VXQUN1S) POC HCO3 ARTERIAL (test code = 27.3 MMOL/L 22.0-26.0 H [id number]) POC BASE EXCESS (test code = 2.3 MMOL/L -4.0-4.0 N POCBEA) POC O2 SATURATION (test code = 98.5 % 90-100 N POCO2S) [id number] 12:48:00 Test Item Value Reference Range Interpretation Comments SODIUM (test code = NA/ABG) 138 MEQ/L 134-147 N [id number] 12:48:00 Test Item Value Reference Range Interpretation Comments POTASSIUM (test code = K/ABG) 4.0 MEQ/L 3.4-5.0 N [id number] 12:48:00 Test Item Value Reference Range Interpretation Comments CHLORIDE (test code = CL/ABG) 104 MEQ/L 100-108 N CREATININE [id number] 12:48:00 Test Item Value Reference Range Interpretation Comments CREATININE ABG (test code = 5.9 mg/dL 0.8-1.3 H CREAABG) [id number] 12:48:00 Test Item Value Reference Range Interpretation Comments HEMOGLOBIN (test code = HGB/ABG) 7.7 G/DL 12.5-16.9 L [id number] 12:48:00 Test Item Value Reference Range Interpretation Comments HEMATOCRIT (test code = HCT/ABG) 23 % 37.5-50.7 L POC IONIZED [id number] 12:48:00 Test Item Value Reference Range Interpretation Comments POC IONIZED CALCIUM (test code = 1.30 MMOL/L 1.12-1.32 N POCCA) POC LACTIC [id number] 12:48:00 Test Item Value Reference Range Interpretation Comments POC LACTIC ACID (test code = 0.6 mmol/l 0.9-1.7 L POCLAC) POC [id number] 12:48:00 Test Item Value Reference Range Interpretation Comments POC GLUCOSE (test code = POCGLU) 131 MG/DL 70-110 H PROTHROMBIN [id number] 05:58:00 Test Item Value Reference Range Interpretation Comments PROTHROMBIN TIME 11.1 SECONDS 9.3-12.9 N PATIENT (test code = PTP) INTERNATIONAL NORMAL 1.0 0.8-1.2 N TARGET RATIO (test code = INR BY IN DICATION INR) Indication INR1. Prophyl axis of venous thrombos is 2.0 - 3. 0 (orthopedic amish safia), Prophylaxis of venous thrombos is (other than hig h-risk surgery), Rachelle tment of Deep Vein Thrombosis/Pulm onary Embolism, Preve ntion of systemic emb olism - Tissue heart va lves, Acute Myocardia l Infarction (to prevent systemic embo lism), Valvular heart disease, Atri al Fibrillation, Bileaflet mecha nical valve in aortic position.2. Mec hanical prosthetic valv es (high risk), 2.5 - 3.5 Presence of Lupus Anticoagu lant or Antiphospholi pid Antibodies, Pre vention of systemic e mbolism - Acute Myocard ial Infarction (t o prevent recurre nt infarct). BASIC METABOLIC [id number] 05:57:00 Test Item Value Reference Range Interpretation Comments SODIUM (test code = NA) 141 mEq/L 134-147 N POTASSIUM (test code = 4.0 mEq/L 3.4-5.0 N K) CHLORIDE (test code = 106 mEq/L 100-108 N CL) CARBON DIOXIDE (test 27 mEq/l 21-33 N code = CO2) ANION GAP (test code = 12 0-20 N GAP) GLUCOSE (test code = 126 mg/dL 70-110 H GLU) BLOOD UREA NITROGEN 59 mg/dL 7-18 H (test code = BUN) GLOMERULAR FILTRATION 12.0 70-80 L Units of measure = RATE (test code = GFR) ml/mi n/1.73 m2 CREATININE (test code = 4.7 mg/dL 0.6-1.3 H CREAT) CALCIUM (test code = 9.8 mg/dL 8.0-10.5 N CA) COMMENTS: To be done morning of Heart CathCBC W/AUTO [id number] 05:43:00 Test Item Value Reference Range Interpretation Comments WHITE BLOOD CELL (test code = 9.7 x10 3/uL 4.5-11.0 N WBC) RED BLOOD CELL (test code = 2.78 x10 6/uL 4.00-5.60 L RBC) HEMOGLOBIN (test code = HGB) 8.3 g/dL 12.5-16.9 L HEMATOCRIT (test code = HCT) 26.8 % 37.5-50.7 L MEAN CELL VOLUME (test code = 96.4 fL 81.0-99.0 N MCV) MEAN CELL HGB (test code = MCH) 29.9 pg 27.0-33.0 N MEAN CELL HGB CONCETRATION 31.0 g/dL 33.0-37.0 L (test code = MCHC) RED CELL DISTRIBUTION WIDTH CV 17.5 % 11.5-14.5 H (test code = RDW) RED CELL DISTRIBUTION WIDTH SD 61.2 fL 37.0-54.0 H (test code = RDW-SD) PLATELET COUNT (test code = 288 x10 3/uL 150-400 N PLT) MEAN PLATELET VOLUME (test code 10.0 fL 7.0-9.0 H = MPV) NEUTROPHIL % (test code = NT%) 73.2 % 56.0-77.0 N IMMATURE GRANULOCYTE % (test 0.3 % 0.0-2.0 N code = IG%) LYMPHOCYTE % (test code = LY%) 12.6 % 14.0-32.0 L MONOCYTE % (test code = MO%) 9.1 % 4.8-9.0 H EOSINOPHIL % (test code = EO%) 4.2 % 0.3-3.7 H BASOPHIL % (test code = BA%) 0.6 % 0.0-2.0 N NUCLEATED RBC % (test code = 0.0 % 0-0 N NRBC%) NEUTROPHIL # (test code = NT#) 7.11 x10 3/uL 2.0-7.6 N IMMATURE GRANULOCYTE # (test 0.03 x10 3/uL 0.00-0.03 N code = IG#) LYMPHOCYTE # (test code = LY#) 1.22 x10 3/uL 1.0-3.8 N MONOCYTE # (test code = MO#) 0.88 x10 3/uL 0.1-0.8 H EOSINOPHIL # (test code = EO#) 0.41 x10 3/uL 0.0-0.2 H BASOPHIL # (test code = BA#) 0.06 x10 3/uL 0.0-0.2 N NUCLEATED RBC # (test code = 0.00 x10 3/uL 0.0-0.1 N NRBC#) MANUAL DIFF REQUIRED (test code NO = MDIFF) COMMENTS: To be done morning of Heart CathCBC W/AUTO [id number] 05:42:00 Test Item Value Reference Range Interpretation Comments WHITE BLOOD CELL (test code = x10 3/uL 4.5-11.0 WBC) RED BLOOD CELL (test code = RBC) x10 6/uL 4.00-5.60 HEMOGLOBIN (test code = HGB) g/dL 12.5-16.9 HEMATOCRIT (test code = HCT) % 37.5-50.7 MEAN CELL VOLUME (test code = fL 81.0-99.0 MCV) MEAN CELL HGB (test code = MCH) pg 27.0-33.0 MEAN CELL HGB CONCETRATION (test g/dL 33.0-37.0 code = MCHC) RED CELL DISTRIBUTION WIDTH CV % 11.5-14.5 (test code = RDW) PLATELET COUNT (test code = PLT) 288 x10 3/uL 150-400 N NEUTROPHIL % (test code = NT%) % 56.0-77.0 LYMPHOCYTE % (test code = LY%) % 14.0-32.0 NEUTROPHIL # (test code = NT#) x10 3/uL 2.0-7.6 LYMPHOCYTE # (test code = LY#) x10 3/uL 1.0-3.8 MANUAL DIFF REQUIRED (test code = MDIFF) COMMENTS: To be done morning of Heart [id number] 05:25:00 Test Item Value Reference Range Interpretation Comments GLUBED (test code = 126 MG/DL 70-110 H Performe d by certified GLUBED) 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 [facility] [id number] 00:40:00 Test Item Value Reference Range Interpretation Comments GLUBED (test code = 146 MG/DL 70-110 H Performe d by certified GLUBED) 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 [facility] BASIC METABOLIC [id number] 06:53:00 Test Item Value Reference Range Interpretation Comments SODIUM (test code = NA) 136 mEq/L 134-147 N POTASSIUM (test code = 4.3 mEq/L 3.4-5.0 N K) CHLORIDE (test code = 102 mEq/L 100-108 N CL) CARBON DIOXIDE (test 27 mEq/l 21-33 N code = CO2) ANION GAP (test code = 12 0-20 N GAP) GLUCOSE (test code = 129 mg/dL 70-110 H GLU) BLOOD UREA NITROGEN 82 mg/dL 7-18 H (test code = BUN) GLOMERULAR FILTRATION 8.4 70-80 L Units of measure = RATE (test code = GFR) ml/mi n/1.73 m2 CREATININE (test code = 6.4 mg/dL 0.6-1.3 H CREAT) CALCIUM (test code = 10.3 mg/dL 8.0-10.5 N CA) COMMENTS: To be done morning of Heart CathCBC W/AUTO [id number] 06:48:00 Test Item Value Reference Range Interpretation Comments WHITE BLOOD CELL (test code = 10.7 x10 3/uL 4.5-11.0 N WBC) RED BLOOD CELL (test code = 2.72 x10 6/uL 4.00-5.60 L RBC) HEMOGLOBIN (test code = HGB) 8.3 g/dL 12.5-16.9 L HEMATOCRIT (test code = HCT) 26.1 % 37.5-50.7 L MEAN CELL VOLUME (test code = 96.0 fL 81.0-99.0 N MCV) MEAN CELL HGB (test code = MCH) 30.5 pg 27.0-33.0 N MEAN CELL HGB CONCETRATION 31.8 g/dL 33.0-37.0 L (test code = MCHC) RED CELL DISTRIBUTION WIDTH CV 17.7 % 11.5-14.5 H (test code = RDW) RED CELL DISTRIBUTION WIDTH SD 60.4 fL 37.0-54.0 H (test code = RDW-SD) PLATELET COUNT (test code = 274 x10 3/uL 150-400 N PLT) MEAN PLATELET VOLUME (test code 9.9 fL 7.0-9.0 H = MPV) NEUTROPHIL % (test code = NT%) 71.6 % 56.0-77.0 N IMMATURE GRANULOCYTE % (test 0.5 % 0.0-2.0 N code = IG%) LYMPHOCYTE % (test code = LY%) 14.3 % 14.0-32.0 N MONOCYTE % (test code = MO%) 9.2 % 4.8-9.0 H EOSINOPHIL % (test code = EO%) 3.8 % 0.3-3.7 H BASOPHIL % (test code = BA%) 0.6 % 0.0-2.0 N NUCLEATED RBC % (test code = 0.0 % 0-0 N NRBC%) NEUTROPHIL # (test code = NT#) 7.64 x10 3/uL 2.0-7.6 H IMMATURE GRANULOCYTE # (test 0.05 x10 3/uL 0.00-0.03 H code = IG#) LYMPHOCYTE # (test code = LY#) 1.52 x10 3/uL 1.0-3.8 N MONOCYTE # (test code = MO#) 0.98 x10 3/uL 0.1-0.8 H EOSINOPHIL # (test code = EO#) 0.40 x10 3/uL 0.0-0.2 H BASOPHIL # (test code = BA#) 0.06 x10 3/uL 0.0-0.2 N NUCLEATED RBC # (test code = 0.00 x10 3/uL 0.0-0.1 N NRBC#) MANUAL DIFF REQUIRED (test code NO = MDIFF) COMMENTS: To be done morning of Heart CathCBC W/AUTO [id number] 06:45:00 Test Item Value Reference Range Interpretation Comments WHITE BLOOD CELL (test code = x10 3/uL 4.5-11.0 WBC) RED BLOOD CELL (test code = RBC) x10 6/uL 4.00-5.60 HEMOGLOBIN (test code = HGB) g/dL 12.5-16.9 HEMATOCRIT (test code = HCT) % 37.5-50.7 MEAN CELL VOLUME (test code = fL 81.0-99.0 MCV) MEAN CELL HGB (test code = MCH) pg 27.0-33.0 MEAN CELL HGB CONCETRATION (test g/dL 33.0-37.0 code = MCHC) RED CELL DISTRIBUTION WIDTH CV % 11.5-14.5 (test code = RDW) PLATELET COUNT (test code = PLT) 274 x10 3/uL 150-400 N NEUTROPHIL % (test code = NT%) % 56.0-77.0 LYMPHOCYTE % (test code = LY%) % 14.0-32.0 NEUTROPHIL # (test code = NT#) x10 3/uL 2.0-7.6 LYMPHOCYTE # (test code = LY#) x10 3/uL 1.0-3.8 MANUAL DIFF REQUIRED (test code = MDIFF) COMMENTS: To be done morning of Heart [id number] 04:57:00 Test Item Value Reference Range Interpretation Comments GLUBED (test code = 122 MG/DL 70-110 H Performe d by certified GLUBED) 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 [facility] [id number] 23:53:00 Test Item Value Reference Range Interpretation Comments GLUBED (test code = 131 MG/DL 70-110 H Performe d by certified GLUBED) 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 [facility] [id number] 18:29:00 Test Item Value Reference Range Interpretation Comments GLUBED (test code = 130 MG/DL 70-110 H Performe d by certified GLUBED) 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 [facility] COVID 19 Asymptomatic IH [id number] 16:00:00 Test Item Value Reference Range Interpretation Comments COVID 19 Asymptomatic Negative Negative A nega tive result is IH AG (test code = presumpti ve and should COVNONPUIAG) be confirmedwit h an FDA authorized mole cular assay, if neces anuj forpatient charbel gement.A positive result does not rule out co-inf ections withother patho gens.This test detects jarvis th viable (live) and non-viable,SARS -CoV, and SARS-CoV-2. Bubba t performance dep ends on theamount of vi alyse (antigen) in th e sample.This bubba t has not been FDA cleare d or approved; the t est hasbeen authori zed by FDA under an Em ergency Use Authorizati on(EUA) for use by labo ratories certified under the CLIA thatmeet the requirements to perform moderate, high or waivedcomplexit y tests. COMMENTS: If not done this [id number] 12:07:00 Test Item Value Reference Range Interpretation Comments GLUBED (test code = 220 MG/DL 70-110 H Performe d by certified GLUBED) 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 [facility] [id number] 05:28:00 Test Item Value Reference Range Interpretation Comments GLUBED (test code = 142 MG/DL 70-110 H Performe d by certified GLUBED) 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 [facility] [id number] 05:25:00 Test Item Value Reference Range Interpretation Comments GLUBED (test code = 133 MG/DL 70-110 H Performe d by certified GLUBED) 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 [facility] [id number] 03:42:00 Test Item Value Reference Range Interpretation Comments POTASSIUM (test code = K) 4.1 mEq/L 3.4-5.0 N HGB [id number] 03:38:00 Test Item Value Reference Range Interpretation Comments HEMOGLOBIN (test code = HGB) 8.6 g/dL 12.5-16.9 L HEMATOCRIT (test code = HCT) 28.5 % 37.5-50.7 L [id number] 20:37:00 Test Item Value Reference Range Interpretation Comments GLUBED (test code = 120 MG/DL 70-110 H Performe d by certified GLUBED) 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 [facility] HGB [id number] 11:12:00 Test Item Value Reference Range Interpretation Comments HEMOGLOBIN (test code = HGB) 8.7 g/dL 12.5-16.9 L HEMATOCRIT (test code = HCT) 27.6 % 37.5-50.7 L [id number] 11:09:00 Test Item Value Reference Range Interpretation Comments POTASSIUM (test code = K) 3.9 mEq/L 3.4-5.0 N [id number] 06:06:00 Test Item Value Reference Range Interpretation Comments GLUBED (test code = 109 MG/DL 70-110 N Performe d by certified GLUBED) 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 [facility] [id number] 00:45:00 Test Item Value Reference Range Interpretation Comments GLUBED (test code = 155 MG/DL 70-110 H Performe d by certified GLUBED) 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 [facility] - [place] ANGIO [id number] 18:28:00 [facility] [place] [place] : 1935 Sex: M Name: RADHA BLANCO [facility] Mer[place] : 1935 Age/S: 84 / M [address] [place] [address] Blvd Unit #: [id number] Loc: [place] [address] Phys: 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 COMPARISON: There are no previous relevant studies available for correlation. TECHNIQUE: Contiguous 0.5 mm axial images of the chest, abdomen and pelvis were obtained with IV contrast using the CT angiogram protocol. The acquired data was used to create 5 mm axial reconstructions coronal reformatted images and 3-D reconstructions with the use of the Workstation. IV CONTRAST: [address] imaging performed at this location utilizes radiation dose optimization techniques which include one or more of the following: - Automated exposure control -Adjustment of the mA and/or kV according to patient size -Use of iterative reconstruction technique DLP: 2559 mGy-cm FINDINGS: CHEST: Tricuspid aortic valve with heavily calcified leaflets. Calcification of the aortic root and annulus. Calcification of the mitral annulus. AP dimension of the left ventricular outflow track estimated 22 mm. Severe coronary arterial calcifications. Pacemaker/ICD leads. No pericardial effusion. Moderate calcified plaque thoracic aorta and branch vessels. Estimated aortic diameters are as follows: Aortic annulus: 3.2 x 2.6 cm Aortic root: 4 cm Sinotubular junction: 3.8 cm Right cusp height (to RCA takeoff): 1.6 cm Left cusp height (to Leftmain takeoff): 1.5 cm Mid ascending aorta: 4.2 cm Mid transverse arch: 3.1 cm Descending thoracic aorta at the level of the pulmonary arteries: 3.2 cm Incidental h eterogeneous attenuation left thyroid nodule estimated 3 cm with similar findings described oncurrent carotid Doppler. Small right pleural effusion with partial compressive atelectasis posterior right lung. Moderate left pleural effusion with compressive atelectasis basilar segments left lower lobe and portion of the PAGE 1 Signed Report (CONTINUED) Name: RADHA BLANCO [facility] :1935 Age/S: 84 / M [address] [place] [address] Blvd Unit #: [id number] Loc: [place] [address] Phys: Madiha Manjarrez [facility] Acct: [id number] Dis Date: Status: ADM IN PHONE #: [phone] Exam Date: 05/18/2020 1631 FAX #: [phone] Reason: PRE TAVR EXAMS: CPT CODE: [id number] CT ANGIO CHEST 41439 <Continued> inferior lingula. Calcified granuloma right lower lobe. The mediastinal contents are unremarkable. ABDOMEN: Assessment limited by suboptimal arterial enhancement and increased image noise related to patient body habitus. Moderate calcified plaque abdominal aorta and branch vessels. No aneurysm. Nondiagnostic assessment of the vessel lumen. Estimated aortoiliac/iliofemoral arterial diameters are as follows: Abd ominal aorta just below the renal arteries: 2.2 cm Distal abdominal aorta at iliac bifurcation: 1.9 cm Right common iliac artery: 1.4 cm Left common iliac artery: 1.5 cm Right common femoral artery: 1 cm Left common femoral artery: 1.1 cm Assessment of abdominal viscera limited by early arterial phase of this exam and increased image noise. Portions of the left abdomen are beyond the blolp-ck-borf. No focal liver lesion. Fatty involutional change of the pancreas. Spleen is mildly enlarged, 15 cm in length. The adrenal glands are unremarkable. 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 No renal fossa mass. Atrophic right kidney. No hydronephrosis. Partially exophytic low-attenuation lesion lower pole 13 mm approximately water attenuation. The stomach is unremarkable. Metallic endoclips at the level of proximalduodenum. The visualized small bowel and colon are otherwise unremarkable. No free intraperitoneal fluid or air. No pelvic mass. Urinary bladder is unremarkable. Multilevel degenerative changes of the spine. Irregular narrowing of the L4-5 disc space with ill-defined lucent lesions in the adjacent L4 and L5 endplates and adjacent sclerosis. Partial collapse L5 vertebral body. No gross paraspinous fluid collection. IMPRESSION: 1. Heavily calcified aortic valve. Calcifications of the aortic root, annulus and mitral annulus. 2. Severe coronary arterial calcifications. 3. Moderate calcified plaque thoracoabdominal aorta. 4. Small, left greater than right pleural effusions with associated atelectasis. 5. Incidental 3 cm left thyroid nodule. Further imaging options include thyroid ultrasound. 6. Splenomegaly. 7. Atrophic right kidney with small water attenuation renal cortical PAGE 2 Signed Report (CONTINUED) Name: RADHA BLANCO [facility] : 1935 Age/S:84 / M [address] [place] [address] Blvd Unit #: [id number] Loc: [place] [address] Phys: Madiha Manjarrez Acct: [id number] Dis Date: Status: ADM IN PHONE #: [phone] Exam Date: 05/18/2020 1631 FAX #: [phone] Reason: PRE TAVR EXAMS: CPT CODE: [id number] CT ANGIO CHEST 62674 <Continued> cyst. No further imaging is required. 8. 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 Discitis osteomyelitis in the differential to be correlated with clinical and laboratory findings with further imaging as warranted. SL: [id number] at 1828 Reported and signed by: Jaleel Pierce M.D. CC: Madiha Manjarrez; Navjot Cruz MD; Aris Ash MD Technologist:RT Blaine(R) CTDI: DLP: Trnscb Date/Time: 05/18/2020 (1827) [email or web address] Orig Print D/T: S: 05/18/2020 (3500) PAGE 3 Signed Report- [facility] HEART W CN ART/[id number] 18:28:00 [facility] : 1935 Sex: M Name: RADHA BLANCO [facility] : 1935 Age/S: 84 / M [address] [place] [address] Blvd Unit #: [id number] Loc: [place] [address] Phys: Madiha Manjarrez [facility] Acct: [id number] Dis Date: Status: ADM IN PHONE #: [phone] Exam Date: 05/18/2020 163 FAX #: [phone] Reason: brittani for Exam: PRE TAVR EXAMS: CPT CODE: [id number] CT[facility] HEART W CN ART/GRAFTS 49629 CHEST, ABDOMEN AND PELVIS CT ANGIOGRAM WITH AND WITHOUT IV CONTRAST WITH MULTIPLANAR REFORMATS AND 3D RECONSTRUCTIONS (TAVR PROTOCOL) INDICATION: PRE TAVR; . COMPARISON: There are no previous relevant studies available for correlation. TECHNIQUE: Contiguous 0.5 mm axial images of the chest, abdomen and pelvis were obtained with IV contrast using the CT angiogram protocol. The acquired data was used to create 5 mm axial reconstructions coronal reformatted images and 3-D reconstructions with the use of the Workstation. IV CONTRAST: [address] imaging performed at this location utilizes radiation dose optimization techniques which include one or more of the following: -Automated exposure control -Adjustment of the mA and/or kV according to patient size -Use of iterative reconstruction technique DLP: 2559 mGy-cm FINDINGS: CHEST: Tricuspid aortic valve with heavily calcified leaflets. Calcification of the aortic root and annulus. Calcification of the mitral annulus. AP dimension of the left ventricular outflow track estimated 22 mm. Severe coronary arterial calcifications. Pacemaker/ICD leads. No pericardial effusion. Moderate calcified plaque thoracic aorta and branch vessels. Estimated aortic diameters are as follows: Aortic annulus: 3.2 x 2.6 cm Aortic root: 4 cm Sinotubular junction: 3.8 cm Right cusp height (to RCA takeoff): 1.6 cm Left cusp height (to Leftmain takeoff): 1.5 cm Mid ascending aorta: 4.2 cm Mid transverse arch: 3.1 cm Descending thoracic aorta at the level of the pulmonary arteries: 3.2 cm Incidental heterogeneous attenuation left thyroid nodule estimated 3 cm with similar findings described oncurrent carotid Doppler. Small right pleural effusion with partial compressive atelectasis posterior right lung. Moderate left pleural effusion with compressive atelectasis basilar segments left lower lobe and portion of the PAGE 1 Signed Report (CONTINUED) Name: RADHA BLANCO [facility] :1935 Age/S: 84 / M [address] [place] [address] Blvd Unit #: [id number] Loc: [place] [address] Phys: Madiha Manjarrez [facility] Acct: [id number] Dis Date: Status: ADM IN PHONE #: [phone] Exam Date: 05/18/2020 1631 FAX #: [phone] Reason: brittani for Exam: PRE TAVR EXAMS: CPT CODE: [id number] CT[facility] HEART W CN ART/GRAFTS 05422 <Continued> inferior lingula. Calcified granuloma right lower lobe. The mediasti nal contents are unremarkable. ABDOMEN: Assessment limited by suboptimal arterial enhancement and increased image noise related to patient body habitus. Moderate calcified plaque abdominal aorta and branch vessels. No aneurysm. Nondiagnostic assessment of the vessel lumen. Estimated aortoiliac/iliofemoral arterial diameters are as follows: Abdominal aorta just below the renal arteries: 2.2 cm Distal abdominal aorta at iliac bifurcation: 1.9 cm Right common iliac artery: 1.4 cm Left common iliac artery: 1.5 cm Right common femoral artery: 1 cm Left common femoral artery: 1.1 cm Assessment of abdominal viscera limited by early arterial phase of this exam and increased image noise. Portions of the left abdomen are beyond the [id number]-[id number]. No focal liver lesion. Fatty involutional change of the pancreas. Spleen is mildly enlarged, 15 cm in length. The adrenal glands are unremarkable. 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 No renal fossa mass. Atrophic right kidney. N o hydronephrosis. Partially exophytic low-attenuation lesion lower pole 13 mm approximately water attenuation. The stomach is unremarkable. Metallic endoclips at the level of proximalduodenum. The visualized small bowel and colon are otherwise unremarkable. No free intraperitoneal fluid or air. No pelvic mass. Urinary bladder is unremarkable. Multilevel degenerative changes of the spine. Irregular narrowing of the L4-5 disc space with ill-defined lucent lesions in the adjacent L4 and L5 endplates and adjacent sclerosis. Partial collapse L5 vertebral body. No gross paraspinous fluid collection. IMPRESSION: 1. Heavily calcified aortic valve. Calcifications of the aortic root, annulus and mitral annulus. 2. Severe coronary arterial calcifications. 3. Moderate calcified plaque thoracoabdominal aorta. 4. Small, left greater than right pleural effusions with associated atelectasis. 5. Incidental 3 cm left thyroid nodule. Further imaging options include thyroid ultrasound. 6. Splenomegaly. 7. Atrophic right kidney with small water attenuation renal cortical PAGE 2 Signed Report (CONTINUED) Name: RADHA BLANCO [facility] : 1935 Age/S:84 / M [address] [place] [address] Blvd Unit #: [id number] Loc: [place] [address] Phys: Madiha Manjarrez Acct: [id number] Dis Date: Status: ADM IN PHONE #: [phone] Exam Date: 05/18/2020 1631 FAX #: [phone] Reason: brittani for Exam: PRE TAVR EXAMS: CPT CODE: [id number] CTA HEART W CN ART/GRAFTS 06290 <Continued> cyst. No further imaging is required. 8. 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 Discitis osteomyelitis in the differential to be correlated with clinical and laboratory findings with further imaging as warranted. SL: [id number] at 1828 Reported and signed by: Jaleel Pierce M.D. 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 COMPARISON: There are no previous relevant studies available for correlation. TECHNIQUE: Contiguous 0.5 mm axial images of the chest, abdomen and pelvis were obtained with IV contrast using the CT angiogram protocol. The acquired data was used to create 5 mm axial reconstructions coronal reformatted images and 3-D reconstructions with the use of the Workstation. IV CONTRAST: [address] imaging performed at this location utilizes radiation dose optimization techniques which include one or more of the following: -Automated exposure control -Adjustment of the mA and/or kV according to patient size -Use of iterative reconstruction technique DLP: 2559 mGy-cm FINDINGS: CHEST: Tricuspid aortic valve with heavily calcified leaflets. Calcification of the aortic root and annulus. Calcification of the mitral annulus. AP dimension of the left ventricular outflow track estimated 22 mm. Severe coronary arterial calcifications. Pacemaker/ICD leads. No pericardial effusion. Moderate calcified plaque thoracic aorta and branch vessels. Estimated aortic diameters are as follows: Aortic annulus: 3.2 x 2.6 cm Aortic root: 4 cm Sinotubular junction: 3.8 cm Right cusp height (to RCA takeoff): 1.6 cm Left cusp height (to Leftmain takeoff): 1.5 cm Mid ascending aorta: 4.2 cm Mid transverse arch: 3.1 cm Descending thoracic aorta at the level of the pulmonary arteries: 3.2 cm Incidental heterogeneous attenuation left thyroid nodule estimated 3 cm with similar findings described oncurrent carotid Doppler. Small right pleural effusion with partial compressive atelectasis posterior right lung. Moderate left pleural effusion with compressive atelectasis basilar segments left lower lobe and portion of the PAGE 1 Signed Report (CONTINUED) Name: RADHA BLANCO [facility] :1935 Age/S: 84 / M [address] [place] [address] Blvd Unit #: [id number] Loc: [place] [address] Phys: Madiha Manjarrez [facility] Acct: [id number] Dis Date: Status: ADM IN PHONE #: [phone] Exam Date: 05/18/2020 1631 FAX #: [phone] Reason: PRE TAVR EXAMS: CPT CODE: [id number] CTA ABD PEL W CONT 27610 <Continued> inferior lingula. Calcified granuloma right lower lobe. The mediasti nal contents are unremarkable. ABDOMEN: Assessment limited by suboptimal arterial enhancement and increased image noise related to patient body habitus. Moderate calcified plaque abdominal aorta and branch vessels. No aneurysm. Nondiagnostic assessment of the vessel lumen. Estimated aortoiliac/iliofemoral arterial diameters are as follows: Abdominal aorta just below the renal arteries: 2.2 cm Distal abdominal aorta at iliac bifurcation: 1.9 cm Right common iliac artery: 1.4 cm Left common iliac artery: 1.5 cm Right common femoral artery: 1 cm Left common femoral artery: 1.1 cm Assessment of abdominal viscera limited by early arterial phase of this exam and increased image noise. Portions of the left abdomen are beyond the simvc-fq-qzck. No focal liver lesion. Fatty involutional change of the pancreas. Spleen is mildly enlarged, 15 cm in length. The adrenal glands are unremarkable. 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 No renal fossa mass. Atrophic right kidney. N o hydronephrosis. Partially exophytic low-attenuation lesion lower pole 13 mm approximately water attenuation. The stomach is unremarkable. Metallic endoclips at the level of proximalduodenum. The visualized small bowel and colon are otherwise unremarkable. No free intraperitoneal fluid or air. No pelvic mass. Urinary bladder is unremarkable. Multilevel degenerative changes of the spine. Irregular narrowing of the L4-5 disc space with ill-defined lucent lesions in the adjacent L4 and L5 endplates and adjacent sclerosis. Partial collapse L5 vertebral body. No gross paraspinous fluid collection. IMPRESSION: 1. Heavily calcified aortic valve. Calcifications of the aortic root, annulus and mitral annulus. 2. Severe coronary arterial calcifications. 3. Moderate calcified plaque thoracoabdominal aorta. 4. Small, left greater than right pleural effusions with associated atelectasis. 5. Incidental 3 cm left thyroid nodule. Further imaging options include thyroid ultrasound. 6. Splenomegaly. 7. Atrophic right kidney with small water attenuation renal cortical PAGE 2 Signed Report (CONTINUED) Name: RADHA BLANCO [facility] : 1935 Age/S:84 / M [address] [place] [address] Bl Unit #: [id number] Loc: [place] [address] Phys: Madiha Manjarrez [facility] Acct: [id number] Dis Date: Status: ADM IN PHONE #: [phone] Exam Date: 05/18/2020 1631 FAX #: [phone] Reason: PRE TAVR EXAMS: CPT CODE: [id number] CTA ABD PEL W CONT 04308 <Continued> cyst. No further imaging is required. 8. 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 Discitis osteomyelitis in the differential to be correlated with clinical and laboratory findings with further imaging as warranted. SL: [id number] at 1828 Reported and signed by: Jaleel Pierce M.D. 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 [facility] - DUP EXTRACRANIAL [id number] 16:59:00 [facility] : 1935 Sex: M Name: RADHA BLANCO [facility] : 1935 Age/S: 84 / M [address] [place] [address] Unit #: [id number] Loc: [place] [address] Phys: Madiha Manjarrez Acct: [id number] Dis Date: Status: ADM IN PHONE #: [phone] Exam Date: 05/18/2020 1650 FAX #: [phone] Reason: PRE TAVR EXAMS: CPT CODE: [id number] DUP EXTRACRANIAL DEX 41274 STUDY: - DUP EXTRACRANIAL DEX 05/18/2020 1:30 PM Ordering Physician: Madiha Manjarrez Patient Name: RADHA BLANCO MR: [id number] : 1935; Age: 84 years y/o Male Clinical Indication: PRE TAVR Comparison: None TECHNIQUE: Palacio-scale, color Doppler and spectral Doppler of the carotid arteries was performed. Any reported ICA stenoses indirectly reference the distal internal carotid diameter as the denom inator for the stenosis measurement, utilizing consensus panel criteria. FINDINGS: RIGHT CAROTID Grayscale images: Mild plaque ICA PSV: 72.7 cm/sec CCA PSV: 75.5 cm/sec ICA/CCA PSV RATIO:1 Vertebral flow: Antegrade. External carotid: Patent. LEFT CAROTID SYSTEM Grayscale images: Mild plaque ICA PSV: 73.7 cm/sec CCA PSV: 76.2 cm/sec ICA/CCA PSV RATIO:1 Vertebral flow: Antegrade. External carotid: Patent. Incidental left thyroid heterogeneous solid nodule is seen measuring 2.6 x 2.7 x 2.9 cm. IMPRESSION: RIGHT: ICA stenosis <50% by velocity criteria. LEFT: ICA stenosis <50% by velocity criteria. Incidental left thyroid heterogeneous solid nodule is seen measuring PAGE 1 Signed Report (CONTINUED) Name: RADHA BLANCO [facility] : 1935 Age/S: 84 / M [address] [place] [address] Blvd Unit #: [id number] Loc: [place] [address] Phys: Madiha Manjarrez [facility] Acct: [id number] Dis Date: Status: ADM IN PHONE #: [phone] Exam Date: 05/18/2020 1650 FAX #: [phone] Reason: PRE TAVR EXAMS: CPT CODE: [id number] DUP EXTRACRANIAL DEX 96879 <Continued> 2.6 x 2.7 x 2.9 cm. Dedicated thyroid ultrasound is recommended. Consensus panel Doppler US criteria for diagnosis of ICA stenosis: Stenosis (%) ICA PSV (cm/sec) ICA/CCA ratio ------ <50<125 <2.0 50-69 125-230 2.0-4.0 >70 but less than >230 >4.0near occlusion Near occlusion High, low, or Variable undetectable SL: [id number] at 1659 Reported and signed by: Donnell Naranjo D.O. 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 [facility] LIPOPROTEIN [id number] 14:33:00 Test Item Value Reference Range Interpretation Comments LIPOPROTEIN LDL 74.8 mg/dL 0-100 N <100 OPT [id number] (test code = LDL) NEAR OPTIM AL/ABOVE [id number] 89 HIGH>EF=523 VE RY HIGH*Guidelines provided by the National Cholesterol EducationProgra m Adult Treatment Panel III [id number] 14:07:00 Test Item Value Reference Range Interpretation Comments TROPONIN-I 0.069 ng/mL 0.000-0.045 H Negative: <= (test code = 0.045 Positive: TROPI) >= 0.046 Correl ation with serial results, other cardiac markers andclin ical findings is necessary to determine the clinicalsignifi cance of this result. Results using different metho dologies should not be c omparedto one another as [place] titative results may fam y by method. RENAL FUNCTION [id number] 11:46:00 Test Item Value Reference Range Interpretation Comments SODIUM (test code = NA) 141 mEq/L 134-147 N POTASSIUM (test code = 4.7 mEq/L 3.4-5.0 N K) CHLORIDE (test code = 104 mEq/L 100-108 N CL) CARBON DIOXIDE (test 24 mEq/l 21-33 N code = CO2) ANION GAP (test code = 17 0-20 N GAP) GLUCOSE (test code = 137 mg/dL 70-110 H GLU) BLOOD UREA NITROGEN 87 mg/dL 7-18 H (test code = BUN) GLOMERULAR FILTRATION 9.0 70-80 L Units of measure = RATE (test code = GFR) ml/mi n/1.73 m2 CREATININE (test code = 6.0 mg/dL 0.6-1.3 H CREAT) ALBUMIN (test code = 2.40 g/dL 3.4-5.0 L ALB) CALCIUM (test code = 10.1 mg/dL 8.0-10.5 N CA) PHOSPHOROUS (test code 4.8 MG/DL 2.5-4.9 N = PHOS) CBC W/AUTO [id number] 07:15:00 Test Item Value Reference Range Interpretation Comments WHITE BLOOD CELL (test code = 8.6 x10 3/uL 4.5-11.0 N WBC) RED BLOOD CELL (test code = 2.13 x10 6/uL 4.00-5.60 L RBC) HEMOGLOBIN (test code = HGB) 6.6 g/dL 12.5-16.9 L HEMATOCRIT (test code = HCT) 20.3 % 37.5-50.7 L MEAN CELL VOLUME (test code = 95.3 fL 81.0-99.0 MCV) MEAN CELL HGB (test code = MCH) 31.0 pg 27.0-33.0 N MEAN CELL HGB CONCETRATION 32.5 g/dL 33.0-37.0 L (test code = MCHC) RED CELL DISTRIBUTION WIDTH CV 17.1 % 11.5-14.5 H (test code = RDW) RED CELL DISTRIBUTION WIDTH SD 56.9 fL 37.0-54.0 H (test code = RDW-SD) PLATELET COUNT (test code = 241 x10 3/uL 150-400 N PLT) MEAN PLATELET VOLUME (test code 10.2 fL 7.0-9.0 H = MPV) NEUTROPHIL % (test code = NT%) 70.0 % 56.0-77.0 N IMMATURE GRANULOCYTE % (test 0.3 % 0.0-2.0 N code = IG%) LYMPHOCYTE % (test code = LY%) 16.6 % 14.0-32.0 N MONOCYTE % (test code = MO%) 8.5 % 4.8-9.0 N EOSINOPHIL % (test code = EO%) 4.0 % 0.3-3.7 H BASOPHIL % (test code = BA%) 0.6 % 0.0-2.0 N NUCLEATED RBC % (test code = 0.0 % 0-0 N NRBC%) NEUTROPHIL # (test code = NT#) 6.02 x10 3/uL 2.0-7.6 N IMMATURE GRANULOCYTE # (test 0.03 x10 3/uL 0.00-0.03 N code = IG#) LYMPHOCYTE # (test code = LY#) 1.43 x10 3/uL 1.0-3.8 N MONOCYTE # (test code = MO#) 0.73 x10 3/uL 0.1-0.8 N EOSINOPHIL # (test code = EO#) 0.34 x10 3/uL 0.0-0.2 H BASOPHIL # (test code = BA#) 0.05 x10 3/uL 0.0-0.2 N NUCLEATED RBC # (test code = 0.00 x10 3/uL 0.0-0.1 N NRBC#) MANUAL DIFF REQUIRED (test code NO = MDIFF) [id number] 06:07:00 Test Item Value Reference Range Interpretation Comments GLUBED (test code = 126 MG/DL 70-110 H Performe d by certified GLUBED) 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 [facility] [id number] 00:31:00 Test Item Value Reference Range Interpretation Comments GLUBED (test code = 116 MG/DL 70-110 H Performe d by certified GLUBED) 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 [facility] [id number] 18:56:00 Test Item Value Reference Range Interpretation Comments GLUBED (test code = 142 MG/DL 70-110 H Performe d by certified GLUBED) 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 [facility] [id number] 14:43:00 Test Item Value Reference Range Interpretation Comments GLUBED (test code = 155 MG/DL 70-110 H Performe d by certified GLUBED) 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 [facility] [id number] 14:43:00 Test Item Value Reference Range Interpretation Comments GLUBED (test code = 153 MG/DL 70-110 H Performe d by certified GLUBED) 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 [facility] [id number] 12:49:00 Test Item Value Reference Range Interpretation Comments GLUBED (test code = 147 MG/DL 70-110 H Performe d by certified GLUBED) 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 [facility] [id number] 10:34:00 Test Item Value Reference Range Interpretation Comments GLUBED (test code = 127 MG/DL 70-110 H Performe d by certified GLUBED) 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 [facility] [id number] 08:02:00 Test Item Value Reference Range Interpretation Comments GLUBED (test code = 118 MG/DL 70-110 H Performe d by certified GLUBED) 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 [facility] CBC W/AUTO [id number] 07:37:00 Test Item Value Reference Range Interpretation Comments WHITE BLOOD CELL (test code = 8.9 x10 3/uL 4.5-11.0 N WBC) RED BLOOD CELL (test code = 2.38 x10 6/uL 4.00-5.60 L RBC) HEMOGLOBIN (test code = HGB) 7.5 g/dL 12.5-16.9 L HEMATOCRIT (test code = HCT) 23.7 % 37.5-50.7 L MEAN CELL VOLUME (test code = 99.6 fL 81.0-99.0 H MCV) MEAN CELL HGB (test code = MCH) 31.5 pg 27.0-33.0 N MEAN CELL HGB CONCETRATION 31.6 g/dL 33.0-37.0 L (test code = MCHC) RED CELL DISTRIBUTION WIDTH CV 16.6 % 11.5-14.5 H (test code = RDW) RED CELL DISTRIBUTION WIDTH SD 57.9 fL 37.0-54.0 H (test code = RDW-SD) PLATELET COUNT (test code = 210 x10 3/uL 150-400 N PLT) MEAN PLATELET VOLUME (test code 10.3 fL 7.0-9.0 H = MPV) NEUTROPHIL % (test code = NT%) 65.5 % 56.0-77.0 N IMMATURE GRANULOCYTE % (test 0.6 % 0.0-2.0 N code = IG%) LYMPHOCYTE % (test code = LY%) 19.4 % 14.0-32.0 N MONOCYTE % (test code = MO%) 10.1 % 4.8-9.0 H EOSINOPHIL % (test code = EO%) 3.6 % 0.3-3.7 N BASOPHIL % (test code = BA%) 0.8 % 0.0-2.0 N NUCLEATED RBC % (test code = 0.0 % 0-0 N NRBC%) NEUTROPHIL # (test code = NT#) 5.80 x10 3/uL 2.0-7.6 N IMMATURE GRANULOCYTE # (test 0.05 x10 3/uL 0.00-0.03 H code = IG#) LYMPHOCYTE # (test code = LY#) 1.72 x10 3/uL 1.0-3.8 N MONOCYTE # (test code = MO#) 0.89 x10 3/uL 0.1-0.8 H EOSINOPHIL # (test code = EO#) 0.32 x10 3/uL 0.0-0.2 H BASOPHIL # (test code = BA#) 0.07 x10 3/uL 0.0-0.2 N NUCLEATED RBC # (test code = 0.00 x10 3/uL 0.0-0.1 N NRBC#) MANUAL DIFF REQUIRED (test code NO = MDIFF) COMMENTS: PREOP PROTOCOL- XR CHEST 1 [id number] 07:09:00 [facility] 1935 Sex: M FAX: Navjot Byrd [phone] [place]: St: [facility] FAX: DemarcusLisandra Castrolisandra HEATHER [phone] FAX: Aris Davis [phone] Name: RADHA BLANCO [facility] : 1935 Age/S: 84/M [address] [place] [address] Unit #: [id number] Loc: G.5507 [place] [address] Phys: Lidya Tracy CRNA Acct: [id number] Dis Date: Status: ADM IN PHONE #: [phone] Exam Date: 05/16/2020829 FAX #: [phone] Reason: preop EXAMS: CPT CODE: [id number] XR CHEST 1 V 82943 Chest single view 05/16/2020 HISTORY: Preoperative exam Comparison is made to 05/07/2020 FINDINGS: Pacemaker is stable. No focal opacity within the right lung is present. There is increased blunting of the left costophrenic angle with small left base atelectasis/infiltrate. Heart size is mildly enlarged. Aorta contains calcifications. No interstitial edema is noted. IMPRE SSION: 1. Increased blunting of left costophrenic angle suggestive of pleural effusion. 2. Small left base atelectasis/infiltrate. SL: [id number] t 0709 Reported and signed by: Brock Welsh M.D. 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 [facility] BASIC METABOLIC [id number] 01:25:00 Test Item Value Reference Range Interpretation Comments SODIUM (test code = NA) 141 mEq/L 134-147 N POTASSIUM (test code = 4.1 mEq/L 3.4-5.0 K) CHLORIDE (test code = 105 mEq/L 100-108 N CL) CARBON DIOXIDE (test 28 mEq/l 21-33 N code = CO2) ANION GAP (test code = 12 0-20 N GAP) GLUCOSE (test code = 147 mg/dL 70-110 H GLU) BLOOD UREA NITROGEN 58 mg/dL 7-18 H (test code = BUN) GLOMERULAR FILTRATION 13.7 70-80 L Units of measure = RATE (test code = GFR) ml/mi n/1.73 m2 CREATININE (test code = 4.2 mg/dL 0.6-1.3 H CREAT) CALCIUM (test code = 9.0 mg/dL 8.0-10.5 N CA) HGB [id number] 01:10:00 Test Item Value Reference Range Interpretation Comments HEMOGLOBIN (test code = 6.4 g/dL 12.5-16.9 LL Crit ical result called HGB) to RENE PrestonLAB.JN1 at 04 0605/17/20Nurse r ead back resut and tech confirmed it's correct? YES HEMATOCRIT (test code = 19.5 % 37.5-50.7 L HCT) HGB [id number] 20:14:00 Test Item Value Reference Range Interpretation Comments HEMOGLOBIN (test code = 5.4 g/dL 12.5-16.9 LL Crit ical result called HGB) to SAMINA PrestonLAB.PTP at 05/16/20Nurse r ead back resut and tech confirmed it's correct? Y HEMATOCRIT (test code = 16.7 % 37.5-50.7 LL Crit ical result called HCT) to SAMINA Rose.LAB.PTP at 05/16/20Nurse r ead back result and tech confirmed it's correct? 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 Y HEMATOCRIT (test code 16.2 % 37.5-50.7 LL Critic al result = HCT) called to TRIED CALLING 5HT MAN Y TIMES/NOANSWERb jus G.LAB.DVW at 12 0805/16/20Nurse r ead back result and tech confirmed it's correct? Y MEAN CELL VOLUME (test 97.0 fL 81.0-99.0 code = MCV) MEAN CELL HGB (test 31.1 pg 27.0-33.0 N code = MCH) MEAN CELL HGB 32.1 g/dL 33.0-37.0 L CONCETRATION (test code = MCHC) RED CELL DISTRIBUTION 15.7 % 11.5-14.5 H WIDTH CV (test code = RDW) RED CELL DISTRIBUTION 53.6 fL 37.0-54.0 N WIDTH SD (test code = RDW-SD) PLATELET COUNT (test 238 x10 3/uL 150-400 N code = PLT) MEAN PLATELET VOLUME 10.4 fL 7.0-9.0 H (test code = MPV) NEUTROPHIL % (test 68.5 % 56.0-77.0 N code = NT%) IMMATURE GRANULOCYTE % 0.6 % 0.0-2.0 N (test code = IG%) LYMPHOCYTE % (test 18.6 % 14.0-32.0 N code = LY%) MONOCYTE % (test code 9.2 % 4.8-9.0 H = MO%) EOSINOPHIL % (test 2.7 % 0.3-3.7 N code = EO%) BASOPHIL % (test code 0.4 % 0.0-2.0 N = BA%) NUCLEATED RBC % (test 0.0 % 0-0 N code = NRBC%) NEUTROPHIL # (test 6.35 x10 3/uL 2.0-7.6 N code = NT#) IMMATURE GRANULOCYTE # 0.06 x10 3/uL 0.00-0.03 H (test code = IG#) LYMPHOCYTE # (test 1.72 x10 3/uL 1.0-3.8 N code = LY#) MONOCYTE # (test code 0.85 x10 3/uL 0.1-0.8 H = MO#) EOSINOPHIL # (test 0.25 x10 3/uL 0.0-0.2 H code = EO#) BASOPHIL # (test code 0.04 x10 3/uL 0.0-0.2 N = BA#) NUCLEATED RBC # (test 0.00 x10 3/uL 0.0-0.1 N code = NRBC#) MANUAL DIFF REQUIRED NO (test code = MDIFF) BASIC METABOLIC [id number] 07:35:00 Test Item Value Reference Range Interpretation Comments SODIUM (test code = NA) 139 mEq/L 134-147 N POTASSIUM (test code = 5.3 mEq/L 3.4-5.0 H K) CHLORIDE (test code = 101 mEq/L 100-108 N CL) CARBON DIOXIDE (test 26 mEq/l 21-33 N code = CO2) ANION GAP (test code = 17 0-20 N GAP) GLUCOSE (test code = 138 mg/dL 70-110 H GLU) BLOOD UREA NITROGEN 104 mg/dL 7-18 H (test code = BUN) GLOMERULAR FILTRATION 8.2 70-80 L Units of measure = RATE (test code = GFR) ml/mi n/1.73 m2 CREATININE (test code = 6.5 mg/dL 0.6-1.3 H CREAT) CALCIUM (test code = 10.1 mg/dL 8.0-10.5 N CA) TOTAL IRON BINDING [id number] 07:35:00 Test Item Value Reference Range Interpretation Comments SERUM IRON (test code = IRON) 71 mcg/dL 35-150 N TOTAL IRON BINDING CAPACITY (test 168 mcg/dL 260-445 L code = TIBC) UIBC (test code = UIBC) 97 mcg/dL IRON SATURATION (test code = 42.3 % 14-34 H FESAT) [id number] 07:35:00 Test Item Value Reference Range Interpretation Comments FERRITIN (test code = KYLE) 456.4 ng/mL 23.9-336.2 H PROTHROMBIN [id number] 06:25:00 Test Item Value Reference Range Interpretation Comments PROTHROMBIN TIME 13.5 SECONDS 9.3-12.9 H PATIENT (test code = PTP) INTERNATIONAL NORMAL 1.2 0.8-1.2 N TARGET RATIO (test code = INR BY IN DICATION INR) Indication INR1. Prophyl axis of venous thrombos is 2.0 - 3. 0 (orthopedic amish safia), Prophylaxis of venous thrombos is (other than hig h-risk surgery), Rachelle tment of Deep Vein Thrombosis/Pulm onary Embolism, Preve ntion of systemic emb olism - Tissue heart va lves, Acute Myocardia l Infarction (to prevent systemic embo lism), Valvular heart disease, Atri al Fibrillation, Bileaflet mecha nical valve in aortic position.2. Mec hanical prosthetic valv es (high risk), 2.5 - 3.5 Presence of Lupus Anticoagu lant or Antiphospholi pid Antibodies, Pre vention of systemic e mbolism - Acute Myocard ial Infarction (t o prevent recurre nt infarct). THROMBOPLASTIN TIME [id number] 06:25:00 Test Item Value Reference Range Interpretation Comments THROMBOPLASTIN TIME 31.0 Seconds 25.0-39.5 N Ther apeutic PARTIAL (test code = Range: 50.4 - 88.3 PTT) Seconds Effective 07/13/2018 PROTHROMBIN [id number] 06:23:00 Test Item Value Reference Range Interpretation Comments PROTHROMBIN TIME SECONDS 9.3-12.9 PATIENT (test code = PTP) INTERNATIONAL NORMAL 1.2 0.8-1.2 N TARGET RATIO (test code = INR BY IN DICATION INR) Indication INR1. Prophylax is of venous thrombos is 2.0 - 3.0 (orthopedic amish safia), Prophylaxis of venous thrombosis (oth er than high-risk amish safia), Treatment of De ep Vein Thrombosis/Pulm onary Embolism, Preve ntion of systemic emb olism - Tissue heart va lves, Acute Myocardia l Infarction (to prevent systemic emboli sm), Valvular heart disease, Atrial Fibrill ation, Bileaflet mecha nical valve in aortic position.2. Mec hanical prosthetic valv es (high risk), 2.5 - 3.5 Presence of Lup us Anticoagulant o r Antiphospholipi d Antibodies, Pre vention of systemic e mbolism - Acute Myocardia l Infarction (t o prevent recurrent infar ct). THROMBOPLASTIN TIME [id number] 06:23:00 Test Item Value Reference Range Interpretation Comments THROMBOPLASTIN TIME PARTIAL (test Seconds 25.0-39.5 code = PTT) [id number] 02:15:00 Test Item Value Reference Range Interpretation Comments GLUBED (test code = 161 MG/DL 70-110 H Performe d by certified GLUBED) 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 [facility] [id number] 21:57:00 Test Item Value Reference Range Interpretation Comments GLUBED (test code = 86 MG/DL 70-110 N Performe d by certified GLUBED) 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 [facility] [id number] 17:59:00 Test Item Value Reference Range Interpretation Comments GLUBED (test code = 119 MG/DL 70-110 H Performe d by 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 Bubba t performance dep ends on theamount of vi alyse (antigen) in th e sample.This bubba t has not been FDA cleare d or approved; the t est hasbeen authori krissy by FDA under an Em ergency Use Authorizati on(EUA) for use by labo ratories certified under the CLIA thatmeet the requirements to perform moderate, high or waivedcomplexit y tests. COMMENTS: If not done this [id number] 11:45:00 Test Item Value Reference Range Interpretation Comments GLUBED (test code = 126 MG/DL 70-110 H Performe d by certified GLUBED) 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 [facility] CBC W/AUTO [id number] 07:38:00 Test Item Value Reference Range Interpretation Comments WHITE BLOOD CELL (test 8.4 x10 3/uL 4.5-11.0 N code = WBC) RED BLOOD CELL (test 1.94 x10 6/uL 4.00-5.60 L code = RBC) HEMOGLOBIN (test code 6.1 g/dL 12.5-16.9 LL Critic al result = HGB) called to Vitaly KNOTT.PJ at 073 3 05/15/20Nrey patrick back resut and tech confirmed it's correct? Y ES HEMATOCRIT (test code 19.9 % 37.5-50.7 L = HCT) MEAN CELL VOLUME (test 102.6 fL 81.0-99.0 H code = MCV) MEAN CELL HGB (test 31.4 pg 27.0-33.0 N code = MCH) MEAN CELL HGB 30.7 g/dL 33.0-37.0 L CONCETRATION (test code = MCHC) RED CELL DISTRIBUTION 16.3 % 11.5-14.5 H WIDTH CV (test code = RDW) RED CELL DISTRIBUTION 57.8 fL 37.0-54.0 H WIDTH SD (test code = RDW-SD) PLATELET COUNT (test 249 x10 3/uL 150-400 N code = PLT) MEAN PLATELET VOLUME 10.4 fL 7.0-9.0 H (test code = MPV) NEUTROPHIL % (test 66.5 % 56.0-77.0 N code = NT%) IMMATURE GRANULOCYTE % 0.4 % 0.0-2.0 N (test code = IG%) LYMPHOCYTE % (test 18.3 % 14.0-32.0 N code = LY%) MONOCYTE % (test code 10.6 % 4.8-9.0 H = MO%) EOSINOPHIL % (test 3.5 % 0.3-3.7 N code = EO%) BASOPHIL % (test code 0.7 % 0.0-2.0 N = BA%) NUCLEATED RBC % (test 0.0 % 0-0 N code = NRBC%) NEUTROPHIL # (test 5.57 x10 3/uL 2.0-7.6 N code = NT#) IMMATURE GRANULOCYTE # 0.03 x10 3/uL 0.00-0.03 N (test code = IG#) LYMPHOCYTE # (test 1.53 x10 3/uL 1.0-3.8 N code = LY#) MONOCYTE # (test code 0.89 x10 3/uL 0.1-0.8 H = MO#) EOSINOPHIL # (test 0.29 x10 3/uL 0.0-0.2 H code = EO#) BASOPHIL # (test code 0.06 x10 3/uL 0.0-0.2 N = BA#) NUCLEATED RBC # (test 0.00 x10 3/uL 0.0-0.1 N code = NRBC#) MANUAL DIFF REQUIRED NO (test code = MDIFF) BASIC METABOLIC [id number] 07:13:00 Test Item Value Reference Range Interpretation Comments SODIUM (test code = NA) 137 mEq/L 134-147 N POTASSIUM (test code = 4.7 mEq/L 3.4-5.0 N K) CHLORIDE (test code = 102 mEq/L 100-108 N CL) CARBON DIOXIDE (test 28 mEq/l 21-33 N code = CO2) ANION GAP (test code = 11 0-20 N GAP) GLUCOSE (test code = 95 mg/dL 70-110 N GLU) BLOOD UREA NITROGEN 48 mg/dL 7-18 H (test code = BUN) GLOMERULAR FILTRATION 11.4 70-80 L Units of measure = RATE (test code = GFR) ml/mi n/1.73 m2 CREATININE (test code = 4.9 mg/dL 0.6-1.3 H CREAT) CALCIUM (test code = 10.2 mg/dL 8.0-10.5 N CA) [id number] 00:14:00 Test Item Value Reference Range Interpretation Comments GLUBED (test code = 165 MG/DL 70-110 H Performe d by certified GLUBED) 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 [facility] [id number] 20:05:00 Test Item Value Reference Range Interpretation Comments GLUBED (test code = 151 MG/DL 70-110 H Performe d by certified GLUBED) 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 [facility] [id number] 13:13:00 Test Item Value Reference Range Interpretation Comments GLUBED (test code = 125 MG/DL 70-110 H Performe d by certified GLUBED) 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 [facility] [id number] 06:11:00 Test Item Value Reference Range Interpretation Comments GLUBED (test code = 142 MG/DL 70-110 H Performe d by certified GLUBED) 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 [facility] [id number] 00:33:00 Test Item Value Reference Range Interpretation Comments GLUBED (test code = 157 MG/DL 70-110 H Performe d by certified GLUBED) 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 [facility] [id number] 18:54:00 Test Item Value Reference Range Interpretation Comments GLUBED (test code = 174 MG/DL 70-110 H Performe d by certified GLUBED) 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 [facility] [id number] 14:56:00 Test Item Value Reference Range Interpretation Comments GLUBED (test code = 140 MG/DL 70-110 H Performe d by certified GLUBED) 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 [facility] [id number] 10:09:00 Test Item Value Reference Range Interpretation Comments GLUBED (test code = 126 MG/DL 70-110 H Performe d by certified GLUBED) 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 [facility] BASIC METABOLIC [id number] 08:57:00 Test Item Value Reference Range Interpretation Comments SODIUM (test code = NA) 138 mEq/L 134-147 N POTASSIUM (test code = 4.2 mEq/L 3.4-5.0 N K) CHLORIDE (test code = 104 mEq/L 100-108 N CL) CARBON DIOXIDE (test 23 mEq/l 21-33 N code = CO2) ANION GAP (test code = 15 0-20 N GAP) GLUCOSE (test code = 121 mg/dL 70-110 H GLU) BLOOD UREA NITROGEN 49 mg/dL 7-18 H (test code = BUN) GLOMERULAR FILTRATION 9.2 70-80 L Units of measure = RATE (test code = GFR) ml/mi n/1.73 m2 CREATININE (test code = 5.9 mg/dL 0.6-1.3 H CREAT) CALCIUM (test code = 10.0 mg/dL 8.0-10.5 N CA) CBC W/AUTO [id number] 07:37:00 Test Item Value Reference Range Interpretation Comments WHITE BLOOD CELL (test code = 9.6 x10 3/uL 4.5-11.0 N WBC) RED BLOOD CELL (test code = 2.88 x10 6/uL 4.00-5.60 L RBC) HEMOGLOBIN (test code = HGB) 8.6 g/dL 12.5-16.9 L HEMATOCRIT (test code = HCT) 29.0 % 37.5-50.7 L MEAN CELL VOLUME (test code = 100.7 fL 81.0-99.0 H MCV) MEAN CELL HGB (test code = MCH) 29.9 pg 27.0-33.0 N MEAN CELL HGB CONCETRATION 29.7 g/dL 33.0-37.0 L (test code = MCHC) RED CELL DISTRIBUTION WIDTH CV 16.6 % 11.5-14.5 H (test code = RDW) RED CELL DISTRIBUTION WIDTH SD 59.0 fL 37.0-54.0 H (test code = RDW-SD) PLATELET COUNT (test code = 266 x10 3/uL 150-400 N PLT) MEAN PLATELET VOLUME (test code 10.2 fL 7.0-9.0 H = MPV) NEUTROPHIL % (test code = NT%) 69.3 % 56.0-77.0 N IMMATURE GRANULOCYTE % (test 0.4 % 0.0-2.0 N code = IG%) LYMPHOCYTE % (test code = LY%) 15.5 % 14.0-32.0 N MONOCYTE % (test code = MO%) 9.3 % 4.8-9.0 H EOSINOPHIL % (test code = EO%) 5.0 % 0.3-3.7 H BASOPHIL % (test code = BA%) 0.5 % 0.0-2.0 N NUCLEATED RBC % (test code = 0.0 % 0-0 N NRBC%) NEUTROPHIL # (test code = NT#) 6.61 x10 3/uL 2.0-7.6 N IMMATURE GRANULOCYTE # (test 0.04 x10 3/uL 0.00-0.03 H code = IG#) LYMPHOCYTE # (test code = LY#) 1.48 x10 3/uL 1.0-3.8 N MONOCYTE # (test code = MO#) 0.89 x10 3/uL 0.1-0.8 H EOSINOPHIL # (test code = EO#) 0.48 x10 3/uL 0.0-0.2 H BASOPHIL # (test code = BA#) 0.05 x10 3/uL 0.0-0.2 N NUCLEATED RBC # (test code = 0.00 x10 3/uL 0.0-0.1 N NRBC#) MANUAL DIFF REQUIRED (test code NO = MDIFF) [id number] 05:54:00 Test Item Value Reference Range Interpretation Comments GLUBED (test code = 128 MG/DL 70-110 H Performe d by certified GLUBED) 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 [facility] [id number] 00:44:00 Test Item Value Reference Range Interpretation Comments GLUBED (test code = 127 MG/DL 70-110 H Performe d by certified GLUBED) 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 [facility] [id number] 19:50:00 Test Item Value Reference Range Interpretation Comments GLUBED (test code = 119 MG/DL 70-110 H Performe d by certified GLUBED) 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 [facility] [id number] 12:20:00 Test Item Value Reference Range Interpretation Comments GLUBED (test code = 142 MG/DL 70-110 H Performe d by certified GLUBED) 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 [facility] [id number] 05:37:00 Test Item Value Reference Range Interpretation Comments GLUBED (test code = 116 MG/DL 70-110 H Performe d by certified GLUBED) 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 [facility] [id number] 01:24:00 Test Item Value Reference Range Interpretation Comments GLUBED (test code = 133 MG/DL 70-110 H Performe d by certified GLUBED) 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 [facility] [id number] 18:08:00 Test Item Value Reference Range Interpretation Comments GLUBED (test code = 127 MG/DL 70-110 H Performe d by certified GLUBED) 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 [facility] [id number] 15:12:00 Test Item Value Reference Range Interpretation Comments GLUBED (test code = 155 MG/DL 70-110 H Performe d by certified GLUBED) 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 [facility] [id number] 13:25:00 Test Item Value Reference Range Interpretation Comments GLUBED (test code = 175 MG/DL 70-110 H Performe d by certified GLUBED) 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 [facility] [id number] 12:55:00 Test Item Value Reference Range Interpretation Comments GLUBED (test code = 122 MG/DL 70-110 H Performe d by certified GLUBED) 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 [facility] [id number] 08:17:00 Test Item Value Reference Range Interpretation Comments GLUBED (test code = 167 MG/DL 70-110 H Performe d by certified GLUBED) 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 [facility] CBC W/AUTO [id number] 08:13:00 Test Item Value Reference Range Interpretation Comments WHITE BLOOD CELL (test code = 8.2 x10 3/uL 4.5-11.0 N WBC) RED BLOOD CELL (test code = 2.71 x10 6/uL 4.00-5.60 L RBC) HEMOGLOBIN (test code = HGB) 8.1 g/dL 12.5-16.9 L HEMATOCRIT (test code = HCT) 26.1 % 37.5-50.7 L MEAN CELL VOLUME (test code = 96.3 fL 81.0-99.0 N MCV) MEAN CELL HGB (test code = MCH) 29.9 pg 27.0-33.0 N MEAN CELL HGB CONCETRATION 31.0 g/dL 33.0-37.0 L (test code = MCHC) RED CELL DISTRIBUTION WIDTH CV 17.0 % 11.5-14.5 H (test code = RDW) RED CELL DISTRIBUTION WIDTH SD 56.7 fL 37.0-54.0 H (test code = RDW-SD) PLATELET COUNT (test code = 190 x10 3/uL 150-400 N PLT) MEAN PLATELET VOLUME (test code 10.4 fL 7.0-9.0 H = MPV) NEUTROPHIL % (test code = NT%) 66.0 % 56.0-77.0 N IMMATURE GRANULOCYTE % (test 0.4 % 0.0-2.0 N code = IG%) LYMPHOCYTE % (test code = LY%) 17.5 % 14.0-32.0 N MONOCYTE % (test code = MO%) 9.1 % 4.8-9.0 H EOSINOPHIL % (test code = EO%) 6.6 % 0.3-3.7 H BASOPHIL % (test code = BA%) 0.4 % 0.0-2.0 N NUCLEATED RBC % (test code = 0.0 % 0-0 N NRBC%) NEUTROPHIL # (test code = NT#) 5.38 x10 3/uL 2.0-7.6 N IMMATURE GRANULOCYTE # (test 0.03 x10 3/uL 0.00-0.03 N code = IG#) LYMPHOCYTE # (test code = LY#) 1.43 x10 3/uL 1.0-3.8 N MONOCYTE # (test code = MO#) 0.74 x10 3/uL 0.1-0.8 N EOSINOPHIL # (test code = EO#) 0.54 x10 3/uL 0.0-0.2 H BASOPHIL # (test code = BA#) 0.03 x10 3/uL 0.0-0.2 N NUCLEATED RBC # (test code = 0.00 x10 3/uL 0.0-0.1 N NRBC#) MANUAL DIFF REQUIRED (test code NO = MDIFF) BASIC METABOLIC [id number] 07:55:00 Test Item Value Reference Range Interpretation Comments SODIUM (test code = NA) 139 mEq/L 134-147 N POTASSIUM (test code = 4.0 mEq/L 3.4-5.0 N K) CHLORIDE (test code = 102 mEq/L 100-108 N CL) CARBON DIOXIDE (test 27 mEq/l 21-33 N code = CO2) ANION GAP (test code = 14 0-20 N GAP) GLUCOSE (test code = 142 mg/dL 70-110 H GLU) BLOOD UREA NITROGEN 58 mg/dL 7-18 H (test code = BUN) GLOMERULAR FILTRATION 10.0 70-80 L Units of measure = RATE (test code = GFR) ml/mi n/1.73 m2 CREATININE (test code = 5.5 mg/dL 0.6-1.3 H CREAT) CALCIUM (test code = 9.2 mg/dL 8.0-10.5 N CA) [id number] 06:03:00 Test Item Value Reference Range Interpretation Comments GLUBED (test code = 127 MG/DL 70-110 H Performe d by certified GLUBED) 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 [facility] HGB [id number] 17:39:00 Test Item Value Reference Range Interpretation Comments HEMOGLOBIN (test code = HGB) 8.5 g/dL 12.5-16.9 L HEMATOCRIT (test code = HCT) 28.3 % 37.5-50.7 L [id number] 13:09:00 Test Item Value Reference Range Interpretation Comments GLUBED (test code = 140 MG/DL 70-110 H Performe d by certified GLUBED) 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 [facility] SURGICAL PATH [id number] 08:30:00 Test Item Value Reference Range Interpretation Comments SURGICAL PATH SPECIMENS (test code = SURG) RUN DATE: 05/10/20 [facility] *LIVE* PAGE 1 RUN TIME: 0830 Specimen Inquiry RUN USER: INTERFACE JASMYN ENT: RADHA BLANCO LOC: KIRSTIE Yeung #: [id number] AGE/SX: 84/M ROOM: [address]: 05/06/20REG DR: Navjot Cruz : 37 BED: 1 DIS: STATUS: ADM IN TLOC: SPEC #: [id number] RECD: 05/07/20 STATUS: ANGEL REQ #: [id number] KISHA: 05/07/[address]: Navjot Cruz MD ENTERED: 05/09/20 SP TYPE: SURG SPEC OTHR DR: Self Referred Carlos Bai MD, Brent J MD Faust, Eric Joseph MD Gowda, Jeevan Chaythan MD Shah, Rakesh MDORDERED: GROSS AND MICRO CODES: [id number] - STOMACH, NOS [id number] - SMALL INTESTINE COPIES TO: Self Referred Navjot Cruz MD [address] [facility] [address] [place] [address] Carlos Bai MD [address] [place] [address] Gordon Alejandro MD [address] [place] [address] Orlando Patel MD [address] [facility] [address] [place] [address] Aris Ash MD [address] [facility] [address] [place] [address] Guanako Betancourt MD [address] [place] [address] CONTINUED ON NEXT PAGE RUN DATE: 05/10/20 [facility] *LIVE* PAGE 2 RUN TIME: 829 Specimen Inquiry RUN USER: INTERFACE SPEC #: [id number] PATIENT: RADHA BLANCO #[id number] (Continued) ------- PROCEDURES: GROSS AND MICRO (Incomplete) TISSUES: 1. SMALL INTESTINE, NOS - Small intestine, duodenal bulb, bx. 2. SMALL INTESTINE, NOS - Small intestine, duodenal bulb ulcer, bx 3. STOMACH, NOS - Stomach, bx. 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 Small intestine, duodenal bulb ulcer, bx.: Acute and chronic duodenitis. Stomach, biopsy: Mild chronic gastritis, non-active; no Helicobacter pylori organisms identified. GROSS AND MICROSCOPIC GROSS EXAMINATION: Received is/are the specimen/s designated with the appropriate dimensions and block designation: 1. Small intestine, duodenal bulb, bx.: 4 segments of pink-pandya tissue, measuring up to 0.4 cm. in greatest dimension each (A). 2. Small intestine, duodenal bulb ulcer, bx.: 3 segments of pink-pandya tissue, measuring up to 0.4 cm. in greatest dimension each (B). 3. Stomach, bx.: 3 segments of pink-pandya tissue, measuring up to 0.4 cm. in greatest dimension each (C). MICROSCOPIC EXAMINATION: Specimen #1 shows duodenal mucosa with acute and chronic inflammation and foveolar hyperplasia. 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 Specimen #2 shows duodenal mucosa with normal villous formation and with acute and chronic inflammation. The gastric mucosa reveals mild foveolar hyperplasia with increased fibrosis and chronic inflammation in the lamina propria. No significant acute inflammation is identified. No Helicobacter pylori organisms are identified with the immunostain, and no intestinal metaplasia is identified with the alcian blue/PAS stain. (When special stains have been reviewed, the appropriate positive/negative controls have been reviewed and are appropriately positive/negative). CONTINUED ON NEXT PAGE RUN DATE: 05/10/20 [facility] *LIVE* PAGE 3 RUN TIME: 829 Specimen Inquiry RUN USER: INTERFACE SPEC #: [id number] PATIENT: RADHA BLANCO #[id number] (Continued) ------- POST-OP DIAGNOSIS Duodenal bulb ulcer, severe duodenitis, gastritis PRE-OP DIAGNOSIS Anemia -- Signed SIGNATURE ON FILE Michael López MD 05/10/20 0830 END OF REPORT BASIC METABOLIC [id number] 07:39:00 Test Item Value Reference Range Interpretation Comments SODIUM (test code = NA) 140 mEq/L 134-147 N POTASSIUM (test code = 3.9 mEq/L 3.4-5.0 N K) CHLORIDE (test code = 104 mEq/L 100-108 N CL) CARBON DIOXIDE (test 30 mEq/l 21-33 N code = CO2) ANION GAP (test code = 10 0-20 N GAP) GLUCOSE (test code = 109 mg/dL 70-110 N GLU) BLOOD UREA NITROGEN 31 mg/dL 7-18 H (test code = BUN) GLOMERULAR FILTRATION 14.0 70-80 L Units of measure = RATE (test code = GFR) ml/mi n/1.73 m2 CREATININE (test code = 4.1 mg/dL 0.6-1.3 H CREAT) CALCIUM (test code = 9.7 mg/dL 8.0-10.5 N CA) HGB [id number] 07:11:00 Test Item Value Reference Range Interpretation Comments HEMOGLOBIN (test code = HGB) 8.3 g/dL 12.5-16.9 L HEMATOCRIT (test code = HCT) 26.9 % 37.5-50.7 L [id number] 05:16:00 Test Item Value Reference Range Interpretation Comments GLUBED (test code = 117 MG/DL 70-110 H Performe d by certified GLUBED) 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 [facility] [id number] 05:16:00 Test Item Value Reference Range Interpretation Comments GLUBED (test code = 112 MG/DL 70-110 H Performe d by certified GLUBED) 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 [facility] HGB [id number] 18:25:00 Test Item Value Reference Range Interpretation Comments HEMOGLOBIN (test code = HGB) 8.2 g/dL 12.5-16.9 L HEMATOCRIT (test code = HCT) 26.6 % 37.5-50.7 L [id number] 13:25:00 Test Item Value Reference Range Interpretation Comments GLUBED (test code = 140 MG/DL 70-110 H Performe d by certified GLUBED) 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 [facility] BASIC METABOLIC [id number] 11:12:00 Test Item Value Reference Range Interpretation Comments SODIUM (test code = NA) 139 mEq/L 134-147 N POTASSIUM (test code = 4.0 mEq/L 3.4-5.0 N K) CHLORIDE (test code = 103 mEq/L 100-108 N CL) CARBON DIOXIDE (test 27 mEq/l 21-33 N code = CO2) ANION GAP (test code = 13 0-20 N GAP) GLUCOSE (test code = 126 mg/dL 70-110 H GLU) BLOOD UREA NITROGEN 69 mg/dL 7-18 H (test code = BUN) GLOMERULAR FILTRATION 10.0 70-80 L Units of measure = RATE (test code = GFR) ml/mi n/1.73 m2 CREATININE (test code = 5.5 mg/dL 0.6-1.3 H CREAT) CALCIUM (test code = 9.4 mg/dL 8.0-10.5 N CA) LIPID PROFILE (CORONARY RISK)[id number] 11:12:00 Test Item Value Reference Range Interpretation Comments TRIGLYCERIDES (test 77 mg/dL 40-150 N code = TRIG) CHOLESTEROL (test 110 mg/dL <200 code = CHOL) CHOLESTEROL/HDL 4.09 RATIO 3.43-4.97 N RISK ASSOCIA ELIZABETH WITH RATIO (test code = CHOL/HDL RATIOS: RISK CHOLHDL) MALE FEMALE1/2 AVERA GE 3.43 3.27AVERAGE 4.97 4.4 42X AVERAGE 9.55 7.053X AVER AGE 23.39 1 1.04 NOTE THAT THE R EFERENCE VALUE IS RELATE DTO RISK LEVELS RECOM MENDED BY THE NATL.HEA RT, LUNG, AND BLOOD INST. HDL CHOLESTEROL 26.9 mg/dL 32-72 L (test code = HDL) LIPOPROTEIN LDL 68.0 mg/dL 0-100 N <100 OPT [id number] (test code = LDL) NEAR OPTI MAL/ABOVE [id number] 89 HIGH>HN=162 VE RY HIGH*Guidelines provided by the [facility] terol [employer] Adult Treatment Panel III CBC W/AUTO [id number] 11:00:00 Test Item Value Reference Range Interpretation Comments WHITE BLOOD CELL (test code = 8.0 x10 3/uL 4.5-11.0 N WBC) RED BLOOD CELL (test code = 2.41 x10 6/uL 4.00-5.60 L RBC) HEMOGLOBIN (test code = HGB) 7.2 g/dL 12.5-16.9 L HEMATOCRIT (test code = HCT) 23.3 % 37.5-50.7 L MEAN CELL VOLUME (test code = 96.7 fL 81.0-99.0 N MCV) MEAN CELL HGB (test code = MCH) 29.9 pg 27.0-33.0 N MEAN CELL HGB CONCETRATION 30.9 g/dL 33.0-37.0 L (test code = MCHC) RED CELL DISTRIBUTION WIDTH CV 17.1 % 11.5-14.5 H (test code = RDW) RED CELL DISTRIBUTION WIDTH SD 56.0 fL 37.0-54.0 H (test code = RDW-SD) PLATELET COUNT (test code = 150 x10 3/uL 150-400 N PLT) MEAN PLATELET VOLUME (test code 10.6 fL 7.0-9.0 H = MPV) NEUTROPHIL % (test code = NT%) 70.1 % 56.0-77.0 N IMMATURE GRANULOCYTE % (test 0.5 % 0.0-2.0 N code = IG%) LYMPHOCYTE % (test code = LY%) 15.5 % 14.0-32.0 N MONOCYTE % (test code = MO%) 8.6 % 4.8-9.0 N EOSINOPHIL % (test code = EO%) 4.9 % 0.3-3.7 H BASOPHIL % (test code = BA%) 0.4 % 0.0-2.0 N NUCLEATED RBC % (test code = 0.0 % 0-0 N NRBC%) NEUTROPHIL # (test code = NT#) 5.59 x10 3/uL 2.0-7.6 N IMMATURE GRANULOCYTE # (test 0.04 x10 3/uL 0.00-0.03 H code = IG#) LYMPHOCYTE # (test code = LY#) 1.24 x10 3/uL 1.0-3.8 N MONOCYTE # (test code = MO#) 0.69 x10 3/uL 0.1-0.8 N EOSINOPHIL # (test code = EO#) 0.39 x10 3/uL 0.0-0.2 H BASOPHIL # (test code = BA#) 0.03 x10 3/uL 0.0-0.2 N NUCLEATED RBC # (test code = 0.00 x10 3/uL 0.0-0.1 N NRBC#) MANUAL DIFF REQUIRED (test code NO = MDIFF) [id number] 05:38:00 Test Item Value Reference Range Interpretation Comments GLUBED (test code = 116 MG/DL 70-110 H Performe d by certified GLUBED) 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 [facility] [id number] 00:32:00 Test Item Value Reference Range Interpretation Comments GLUBED (test code = 139 MG/DL 70-110 H Performe d by certified GLUBED) 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 [facility] [id number] 17:07:00 Test Item Value Reference Range Interpretation Comments GLUBED (test code = 128 MG/DL 70-110 H Performe d by certified GLUBED) 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 [facility] [id number] 16:31:00 Test Item Value Reference Range Interpretation Comments GLUBED (test code = 147 MG/DL 70-110 H Performe d by certified GLUBED) 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 [facility] HGB [id number] 13:12:00 Test Item Value Reference Range Interpretation Comments HEMOGLOBIN (test code = HGB) 7.6 g/dL 12.5-16.9 L HEMATOCRIT (test code = HCT) 25.0 % 37.5-50.7 L HEPATITIS [id number] 06:11:00 Test Item Value Reference Range Interpretation Comments AB HEPATITIS B 20.6 mIU/mL See_Comment Status of SURFACE (test code Immunity = HBSAB) Anti-H Bs Level --- I ncon sistent with Immunity 0.0 - 9.9Consistent w ith Immunity >9.9Performed A t: HD [facility] [id number] [place], [place] [id number] Flip Landry MD Ph:[phone] [Automated mess age] The system Source Audio generated this result transmit elizabeth reference range : Immunity>9.9. T he reference range was not used to interpret this result as normal/abnormal . AG HEPATITIS B NON REACTIVE NonReactive SURFACE (test code INDEX = HBSAG) AB HEPATITIS B NON REACTIVE NON REACT. CORE IGM (test INDEX code = HBCMAB) COMMENTS: At start of hemodialysisACUTE HEPATITIS [id number] 06:11:00 Test Item Value Reference Range Interpretation Comments AB HEPATITIS A IGM (test NON REACTIVE INDEX NON REACT. code = HAVMAB) AB HEPATITIS C (test code NON REACTIVE INDEX NON REACT. = HCVAB) COMMENTS: At start of hemodialysisBASIC METABOLIC [id number] 05:25:00 Test Item Value Reference Range Interpretation Comments SODIUM (test code = NA) 142 mEq/L 134-147 N POTASSIUM (test code = 3.8 mEq/L 3.4-5.0 K) CHLORIDE (test code = 105 mEq/L 100-108 N CL) CARBON DIOXIDE (test 28 mEq/l 21-33 N code = CO2) ANION GAP (test code = 13 0-20 N GAP) GLUCOSE (test code = 101 mg/dL 70-110 N GLU) BLOOD UREA NITROGEN 45 mg/dL 7-18 H (test code = BUN) GLOMERULAR FILTRATION 16.3 70-80 L Units of measure = RATE (test code = GFR) ml/mi n/1.73 m2 CREATININE (test code = 3.6 mg/dL 0.6-1.3 H CREAT) CALCIUM (test code = 9.4 mg/dL 8.0-10.5 N CA) [id number] 05:25:00 Test Item Value Reference Range Interpretation Comments PHOSPHOROUS (test code = PHOS) 3.9 MG/DL 2.5-4.9 N [id number] 05:25:00 Test Item Value Reference Range Interpretation Comments MAGNESIUM (test code = MAG) 1.59 mg/dL 1.80-2.40 L CALCIUM [id number] 05:25:00 Test Item Value Reference Range Interpretation Comments CALCIUM IONIZED (test code = JONA) 1.25 MMOL/L 1.12-1.32 N BASIC METABOLIC [id number] 05:10:00 Test Item Value Reference Range Interpretation Comments SODIUM (test code = NA) mEq/L 134-147 POTASSIUM (test code = K) mEq/L 3.4-5.0 CHLORIDE (test code = CL) mEq/L 100-108 CARBON DIOXIDE (test code = CO2) mEq/l 21-33 ANION GAP (test code = GAP) 0-20 GLUCOSE (test code = GLU) mg/dL 70-110 BLOOD UREA NITROGEN (test code = BUN) mg/dL 7-18 GLOMERULAR FILTRATION RATE (test code 70-80 = GFR) CREATININE (test code = CREAT) mg/dL 0.6-1.3 CALCIUM (test code = CA) mg/dL 8.0-10.5 [id number] 05:10:00 Test Item Value Reference Range Interpretation Comments PHOSPHOROUS (test code = PHOS) MG/DL 2.5-4.9 [id number] 05:10:00 Test Item Value Reference Range Interpretation Comments MAGNESIUM (test code = MAG) mg/dL 1.80-2.40 CALCIUM [id number] 05:10:00 Test Item Value Reference Range Interpretation Comments CALCIUM IONIZED (test code = JONA) 1.25 MMOL/L 1.12-1.32 N CBC W/AUTO [id number] 05:08:00 Test Item Value Reference Range Interpretation Comments WHITE BLOOD CELL (test code = 8.7 x10 3/uL 4.5-11.0 N WBC) RED BLOOD CELL (test code = 2.46 x10 6/uL 4.00-5.60 L RBC) HEMOGLOBIN (test code = HGB) 7.1 g/dL 12.5-16.9 L HEMATOCRIT (test code = HCT) 23.5 % 37.5-50.7 L MEAN CELL VOLUME (test code = 95.5 fL 81.0-99.0 N MCV) MEAN CELL HGB (test code = MCH) 28.9 pg 27.0-33.0 N MEAN CELL HGB CONCETRATION 30.2 g/dL 33.0-37.0 L (test code = MCHC) RED CELL DISTRIBUTION WIDTH CV 16.8 % 11.5-14.5 H (test code = RDW) RED CELL DISTRIBUTION WIDTH SD 56.2 fL 37.0-54.0 H (test code = RDW-SD) PLATELET COUNT (test code = 140 x10 3/uL 150-400 L PLT) MEAN PLATELET VOLUME (test code 10.4 fL 7.0-9.0 H = MPV) NEUTROPHIL % (test code = NT%) 72.9 % 56.0-77.0 N IMMATURE GRANULOCYTE % (test 0.3 % 0.0-2.0 N code = IG%) LYMPHOCYTE % (test code = LY%) 15.0 % 14.0-32.0 N MONOCYTE % (test code = MO%) 7.1 % 4.8-9.0 N EOSINOPHIL % (test code = EO%) 4.1 % 0.3-3.7 H BASOPHIL % (test code = BA%) 0.6 % 0.0-2.0 N NUCLEATED RBC % (test code = 0.2 % 0-0 H NRBC%) NEUTROPHIL # (test code = NT#) 6.34 x10 3/uL 2.0-7.6 N IMMATURE GRANULOCYTE # (test 0.03 x10 3/uL 0.00-0.03 N code = IG#) LYMPHOCYTE # (test code = LY#) 1.31 x10 3/uL 1.0-3.8 N MONOCYTE # (test code = MO#) 0.62 x10 3/uL 0.1-0.8 N EOSINOPHIL # (test code = EO#) 0.36 x10 3/uL 0.0-0.2 H BASOPHIL # (test code = BA#) 0.05 x10 3/uL 0.0-0.2 N NUCLEATED RBC # (test code = 0.02 x10 3/uL 0.0-0.1 N NRBC#) MANUAL DIFF REQUIRED (test code NO = MDIFF) [id number] 00:22:00 Test Item Value Reference Range Interpretation Comments GLUBED (test code = 82 MG/DL 70-110 N Performe d by certified GLUBED) 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 [facility] HGB [id number] 20:32:00 Test Item Value Reference Range Interpretation Comments HEMOGLOBIN (test code = HGB) 7.3 g/dL 12.5-16.9 L HEMATOCRIT (test code = HCT) 23.1 % 37.5-50.7 L [id number] 16:55:00 Test Item Value Reference Range Interpretation Comments GLUBED (test code = 136 MG/DL 70-110 H Performe d by certified GLUBED) 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 [facility] HGB [id number] 14:16:00 Test Item Value Reference Range Interpretation Comments HEMOGLOBIN (test code = HGB) 7.2 g/dL 12.5-16.9 L HEMATOCRIT (test code = HCT) 23.0 % 37.5-50.7 L [id number] 14:09:00 Test Item Value Reference Range Interpretation Comments GLUBED (test code = 151 MG/DL 70-110 H Performe d by certified GLUBED) 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 FAX: Gordon Alejandro MD FAX: Aris Davis [phone] Name: RADHA BLANCO : 1935 Age/S: 84/M [address] [place] [address] Blvd Unit #: [id number] Loc: [address] [address] Phys: Gordon Alejandro MD Acct: [id number] Dis Date: Status: ADM IN PHONE #: [phone] Exam Date: 05/07/2020 0848 FAX #: [phone] Reason: pulmonary edema EXAMS: CPT CODE: [id number] XR CHEST 1 V [id number] PROCEDURE: CHEST SINGLE VIEW INDICATION: pulmonary edema; . COMPARISON: There are no previous relevant studies available for correlation. FINDINGS: TUBES AND LINES: Dual chamber pacemaker leads in place. EKG leads overlie the chest. Left axillary vascular stent noted. CHEST: AP portable chest obtained with patient semiupright. Assessment is suboptimal secondary to techniqueand patient body habitus. Skin fold overlies the right hemithorax likely accounting for apparent increased opacity in the lateral chest. There are increased interstitial lines and bronchial wall thickening bilateral. Opacification of the left base with obscuration of the hemidiaphragm and blunting of the costophrenic angle. Right hemidiaphragm is sharp. No pneumothorax. Moderate prominence of the cardiac silhouette likely magnified by projection. Coronary arterial stent. Calcified plaque thoracic aorta. The pulmonary vasculature is indistinct. No acute skeletal abnormality. IMPRESSION: 1. Radiographic findings compatible with congestive failure or volume loading with interstitial edema. Inflammation in the differential. 2. Small left pleural effusion with adjacent atelectasis versus airspace disease. SL: [id number] at 0855 Reported and signed by: Jaleel Pierce M.D. CC: Navjot Cruz MD; Gordon Alejandro MD; Aris Ash MD Technologist: RT Kimo(Gregory) Trnscrd Date/Time/By: 05/07/2020 (0855): By: [email or web address] Orig Print D/T: S: 05/07/2020 (0084) PAGE 1 Signed ReportCOMPREHENSIVE METABOLIC [id number] 05:03:00 Test Item Value Reference Range Interpretation Comments SODIUM (test code = NA) 144 mEq/L 134-147 N POTASSIUM (test code = 5.1 mEq/L 3.4-5.0 H K) CHLORIDE (test code = 110 mEq/L 100-108 H CL) CARBON DIOXIDE (test 24 mEq/l 21-33 code = CO2) ANION GAP (test code = 15 0-20 N GAP) GLUCOSE (test code = 107 mg/dL 70-110 GLU) BLOOD UREA NITROGEN 76 mg/dL 7-18 H (test code = BUN) GLOMERULAR FILTRATION 12.9 70-80 L Units of measure = RATE (test code = GFR) ml/mi n/1.73 m2 CREATININE (test code = 4.4 mg/dL 0.6-1.3 H CREAT) TOTAL PROTEIN (test 5.2 g/dL 6.4-8.2 L code = PROT) ALBUMIN (test code = 2.60 g/dL 3.4-5.0 L ALB) CALCIUM (test code = 10.1 mg/dL 8.0-10.5 N CA) BILIRUBIN TOTAL (test 0.40 mg/dL 0.0-1.0 N code = BILT) SGOT/AST (test code = 21 IUnit/L 15-37 N AST) SGPT/ALT (test code = 22 IUnit/L 30-65 L ALT) ALKALINE PHOSPHATASE 52 IUnit/L 20-125 N TOTAL (test code = ALKP) RENAL FUNCTION [id number] 05:03:00 Test Item Value Reference Range Interpretation Comments PHOSPHOROUS (test code = PHOS) 4.8 MG/DL 2.5-4.9 N [id number] 05:03:00 Test Item Value Reference Range Interpretation Comments MAGNESIUM (test code = MAG) 2.00 mg/dL 1.80-2.40 N CALCIUM [id number] 05:03:00 Test Item Value Reference Range Interpretation Comments CALCIUM IONIZED (test code = JONA) 1.38 MMOL/L 1.12-1.32 H COMPREHENSIVE METABOLIC [id number] 04:54:00 Test Item Value Reference Range Interpretation Comments SODIUM (test code = NA) 144 mEq/L 134-147 N POTASSIUM (test code = 5.1 mEq/L 3.4-5.0 H K) CHLORIDE (test code = 110 mEq/L 100-108 H CL) CARBON DIOXIDE (test 24 mEq/l 21-33 code = CO2) ANION GAP (test code = 15 0-20 N GAP) GLUCOSE (test code = 107 mg/dL 70-110 GLU) BLOOD UREA NITROGEN 76 mg/dL 7-18 H (test code = BUN) GLOMERULAR FILTRATION 12.9 70-80 L Units of measure = RATE (test code = GFR) ml/mi n/1.73 m2 CREATININE (test code = 4.4 mg/dL 0.6-1.3 H CREAT) TOTAL PROTEIN (test 5.2 g/dL 6.4-8.2 L code = PROT) ALBUMIN (test code = 2.60 g/dL 3.4-5.0 L ALB) CALCIUM (test code = 10.1 mg/dL 8.0-10.5 N CA) BILIRUBIN TOTAL (test 0.40 mg/dL 0.0-1.0 N code = BILT) SGOT/AST (test code = 21 IUnit/L 15-37 N AST) SGPT/ALT (test code = 22 IUnit/L 30-65 L ALT) ALKALINE PHOSPHATASE 52 IUnit/L 20-125 N TOTAL (test code = ALKP) RENAL FUNCTION [id number] 04:54:00 Test Item Value Reference Range Interpretation Comments PHOSPHOROUS (test code = PHOS) 4.8 MG/DL 2.5-4.9 N [id number] 04:54:00 Test Item Value Reference Range Interpretation Comments MAGNESIUM (test code = MAG) 2.00 mg/dL 1.80-2.40 N CALCIUM [id number] 04:54:00 Test Item Value Reference Range Interpretation Comments CALCIUM IONIZED (test code = JONA) MMOL/L 1.12-1.32 CBC W/AUTO [id number] 04:50:00 Test Item Value Reference Range Interpretation Comments WHITE BLOOD CELL (test code = 10.0 x10 3/uL 4.5-11.0 N WBC) RED BLOOD CELL (test code = 2.46 x10 6/uL 4.00-5.60 L RBC) HEMOGLOBIN (test code = HGB) 7.4 g/dL 12.5-16.9 L HEMATOCRIT (test code = HCT) 22.8 % 37.5-50.7 L MEAN CELL VOLUME (test code = 92.7 fL 81.0-99.0 N MCV) MEAN CELL HGB (test code = MCH) 30.1 pg 27.0-33.0 N MEAN CELL HGB CONCETRATION 32.5 g/dL 33.0-37.0 L (test code = MCHC) RED CELL DISTRIBUTION WIDTH CV 16.2 % 11.5-14.5 H (test code = RDW) RED CELL DISTRIBUTION WIDTH SD 53.1 fL 37.0-54.0 N (test code = RDW-SD) PLATELET COUNT (test code = 155 x10 3/uL 150-400 N PLT) MEAN PLATELET VOLUME (test code 10.8 fL 7.0-9.0 H = MPV) NEUTROPHIL % (test code = NT%) 81.5 % 56.0-77.0 H IMMATURE GRANULOCYTE % (test 0.5 % 0.0-2.0 N code = IG%) LYMPHOCYTE % (test code = LY%) 9.4 % 14.0-32.0 L MONOCYTE % (test code = MO%) 6.6 % 4.8-9.0 N EOSINOPHIL % (test code = EO%) 1.6 % 0.3-3.7 N BASOPHIL % (test code = BA%) 0.4 % 0.0-2.0 N NUCLEATED RBC % (test code = 0.0 % 0-0 N NRBC%) NEUTROPHIL # (test code = NT#) 8.10 x10 3/uL 2.0-7.6 H IMMATURE GRANULOCYTE # (test 0.05 x10 3/uL 0.00-0.03 H code = IG#) LYMPHOCYTE # (test code = LY#) 0.94 x10 3/uL 1.0-3.8 L MONOCYTE # (test code = MO#) 0.66 x10 3/uL 0.1-0.8 N EOSINOPHIL # (test code = EO#) 0.16 x10 3/uL 0.0-0.2 N BASOPHIL # (test code = BA#) 0.04 x10 3/uL 0.0-0.2 N NUCLEATED RBC # (test code = 0.00 x10 3/uL 0.0-0.1 N NRBC#) MANUAL DIFF REQUIRED (test code NO = MDIFF) PROTHROMBIN [id number] 04:48:00 Test Item Value Reference Range Interpretation Comments PROTHROMBIN TIME 14.7 SECONDS 9.3-12.9 H PATIENT (test code = PTP) INTERNATIONAL NORMAL 1.3 0.8-1.2 H TARGET RATIO (test code = INR BY IN DICATION INR) Indication INR1. Prophyl axis of venous thrombos is 2.0 - 3. 0 (orthopedic amish safia), Prophylaxis of venous thrombos is (other than hig h-risk surgery), Rachelle tment of Deep Vein Thrombosis/Pulm onary Embolism, Preve ntion of systemic emb olism - Tissue heart va lves, Acute Myocardia l Infarction (to prevent systemic embo lism), Valvular heart disease, Atri al Fibrillation, Bileaflet mecha nical valve in aortic position.2. Mec hanical prosthetic valv es (high risk), 2.5 - 3.5 Presence of Lupus Anticoagu lant or Antiphospholi pid Antibodies, Pre vention of systemic e mbolism - Acute Myocard ial Infarction (t o prevent recurre nt infarct). CBC W/AUTO [id number] 04:48:00 Test Item Value Reference Range Interpretation Comments WHITE BLOOD CELL (test code = x10 3/uL 4.5-11.0 WBC) RED BLOOD CELL (test code = RBC) x10 6/uL 4.00-5.60 HEMOGLOBIN (test code = HGB) g/dL 12.5-16.9 HEMATOCRIT (test code = HCT) % 37.5-50.7 MEAN CELL VOLUME (test code = fL 81.0-99.0 MCV) MEAN CELL HGB (test code = MCH) pg 27.0-33.0 MEAN CELL HGB CONCETRATION (test g/dL 33.0-37.0 code = MCHC) RED CELL DISTRIBUTION WIDTH CV % 11.5-14.5 (test code = RDW) PLATELET COUNT (test code = PLT) 155 x10 3/uL 150-400 N NEUTROPHIL % (test code = NT%) % 56.0-77.0 LYMPHOCYTE % (test code = LY%) % 14.0-32.0 NEUTROPHIL # (test code = NT#) x10 3/uL 2.0-7.6 LYMPHOCYTE # (test code = LY#) x10 3/uL 1.0-3.8 MANUAL DIFF REQUIRED (test code = MDIFF) LACTIC [id number] 22:59:00 Test Item Value Reference Range Interpretation Comments LACTIC ACID (test code = LACT) 1.1 mmol/L 0.4-1.9 N CALCIUM [id number] 22:56:00 Test Item Value Reference Range Interpretation Comments CALCIUM IONIZED (test code = JONA) 1.27 MMOL/L 1.12-1.32 N CBC W/O [id number] 21:40:00 Test Item Value Reference Range Interpretation Comments WHITE BLOOD CELL (test code = 13.3 x10 3/uL 4.5-11.0 H WBC) RED BLOOD CELL (test code = 2.86 x10 6/uL 4.00-5.60 L RBC) HEMOGLOBIN (test code = HGB) 8.4 g/dL 12.5-16.9 L HEMATOCRIT (test code = HCT) 26.8 % 37.5-50.7 L MEAN CELL VOLUME (test code = 93.7 fL 81.0-99.0 MCV) MEAN CELL HGB (test code = MCH) 29.4 pg 27.0-33.0 N MEAN CELL HGB CONCETRATION 31.3 g/dL 33.0-37.0 L (test code = MCHC) RED CELL DISTRIBUTION WIDTH CV 16.0 % 11.5-14.5 H (test code = RDW) RED CELL DISTRIBUTION WIDTH SD 54.7 fL 37.0-54.0 H (test code = RDW-SD) PLATELET COUNT (test code = 194 x10 3/uL 150-400 N PLT) MEAN PLATELET VOLUME (test code 10.4 fL 7.0-9.0 H = MPV) [id number] 21:40:00 Test Item Value Reference Range Interpretation Comments GLUBED (test code = 149 MG/DL 70-110 H Performe d by certified GLUBED) 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 (test code = HBCMAB) COMMENTS: At start of hemodialysisACUTE HEPATITIS [id number] 18:32:00 Test Item Value Reference Range Interpretation Comments AB HEPATITIS A IGM (test NON REACTIVE INDEX NON REACT. code = HAVMAB) AB HEPATITIS C (test code NON REACTIVE INDEX NON REACT. = HCVAB) COMMENTS: At start of hemodialysisCOVID 19 Asymptomatic IH [id number] 13:14:00 Test Item Value Reference Range Interpretation Comments COVID 19 Asymptomatic Negative Negative A nega tive result is IH AG (test code = presumpti ve and should COVNONPUIAG) be confirmedwit h an FDA authorized mole cular assay, if neces anuj forpatient charbel gement.A positive result does not rule out co-inf ections withother patho gens.This test detects jarvis th viable (live) and non-viable,SARS -CoV, and SARS-CoV-2. Bubba t performance dep ends on theamount of vi alyse (antigen) in th e sample.This bubba t has not been FDA cleare d or approved; the t est hasbeen authori zed by FDA under an Em ergency Use Authorizati on(EUA) for use by labo ratories certified under the CLIA thatmeet the requirements to perform moderate, high or waivedcomplexit y tests. COMMENTS: If not done this admissionCBC W/O [id number] 12:41:00 Test Item Value Reference Range Interpretation Comments WHITE BLOOD CELL (test code = 18.4 x10 3/uL 4.5-11.0 H WBC) RED BLOOD CELL (test code = 2.34 x10 6/uL 4.00-5.60 L RBC) HEMOGLOBIN (test code = HGB) 6.8 g/dL 12.5-16.9 L HEMATOCRIT (test code = HCT) 22.7 % 37.5-50.7 L MEAN CELL VOLUME (test code = 97.0 fL 81.0-99.0 N MCV) MEAN CELL HGB (test code = MCH) 29.1 pg 27.0-33.0 N MEAN CELL HGB CONCETRATION 30.0 g/dL 33.0-37.0 L (test code = MCHC) RED CELL DISTRIBUTION WIDTH CV 16.9 % 11.5-14.5 H (test code = RDW) RED CELL DISTRIBUTION WIDTH SD 58.6 fL 37.0-54.0 H (test code = RDW-SD) PLATELET COUNT (test code = 200 x10 3/uL 150-400 N PLT) MEAN PLATELET VOLUME (test code 10.7 fL 7.0-9.0 H = MPV) [id number] 12:34:00 Test Item Value Reference Range Interpretation Comments GLUBED (test code = 134 MG/DL 70-110 H Performe d by certified GLUBED) 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 Prophyl axis of venous thrombos is 2.0 - 3. 0 (orthopedic amish safia), Prophylaxis of venous thrombos is (other than hig h-risk surgery), Rachelle tment of Deep Vein Thrombosis/Pulm onary Embolism, Preve ntion of systemic emb olism - Tissue heart va lves, Acute Myocardia l Infarction (to prevent systemic embo lism), Valvular heart disease, Atri al Fibrillation, Bileaflet mecha nical valve in aortic position.2. Mec hanical prosthetic valv es (high risk), 2.5 - 3.5 Presence of Lupus Anticoagu lant or Antiphospholi pid Antibodies, Pre vention of systemic e mbolism - Acute Myocard ial Infarction (t o prevent recurre nt infarct). BASIC METABOLIC [id number] 12:26:00 Test Item Value Reference Range Interpretation Comments SODIUM (test code = NA) 140 mEq/L 134-147 N POTASSIUM (test code = 5.6 mEq/L 3.4-5.0 H K) CHLORIDE (test code = 105 mEq/L 100-108 N CL) CARBON DIOXIDE (test 18 mEq/l 21-33 L code = CO2) ANION GAP (test code = 23 0-20 H GAP) GLUCOSE (test code = 177 mg/dL 70-110 H GLU) BLOOD UREA NITROGEN 153 mg/dL 7-18 H (test code = BUN) GLOMERULAR FILTRATION 8.6 70-80 L Units of measure = RATE (test code = GFR) ml/mi n/1.73 m2 CREATININE (test code = 6.3 mg/dL 0.6-1.3 H CREAT) CALCIUM (test code = 10.0 mg/dL 8.0-10.5 N CA) HEPATIC FUNCTION [id number] 12:26:00 Test Item Value Reference Range Interpretation Comments TOTAL PROTEIN (test code = PROT) 5.4 g/dL 6.4-8.2 L ALBUMIN (test code = ALB) 2.50 g/dL 3.4-5.0 L BILIRUBIN TOTAL (test code = BILT) 0.40 mg/dL 0.0-1.0 N BILIRUBIN DIRECT (test code = 0.20 MG/DL 0.0-0.30 N BILD) BILIRUBIN INDIRECT (test code = 0.20 MG/DL BILIND) SGOT/AST (test code = AST) 21 IUnit/L 15-37 N SGPT/ALT (test code = ALT) 12 IUnit/L 30-65 L ALKALINE PHOSPHATASE TOTAL (test 54 IUnit/L 20-125 N code = ALKP) [id number] 12:26:00 Test Item Value Reference Range Interpretation Comments MAGNESIUM (test code = MAG) 2.14 mg/dL 1.80-2.40 N CBC W/AUTO [id number] 10:25:00 Test Item Value Reference Range Interpretation Comments WHITE BLOOD CELL (test code = 17.4 x10 3/uL 4.5-11.0 H WBC) RED BLOOD CELL (test code = 2.26 x10 6/uL 4.00-5.60 L RBC) HEMOGLOBIN (test code = HGB) 6.6 g/dL 12.5-16.9 L HEMATOCRIT (test code = HCT) 21.7 % 37.5-50.7 L MEAN CELL VOLUME (test code = 96.0 fL 81.0-99.0 N MCV) MEAN CELL HGB (test code = 29.2 pg 27.0-33.0 N MCH) MEAN CELL HGB CONCETRATION 30.4 g/dL 33.0-37.0 L (test code = MCHC) RED CELL DISTRIBUTION WIDTH CV 16.5 % 11.5-14.5 H (test code = RDW) RED CELL DISTRIBUTION WIDTH SD 56.7 fL 37.0-54.0 H (test code = RDW-SD) PLATELET COUNT (test code = 174 x10 3/uL 150-400 N PLT) MEAN PLATELET VOLUME (test 10.5 fL 7.0-9.0 H code = MPV) NEUTROPHIL % (test code = NT%) 90.2 % 56.0-77.0 H IMMATURE GRANULOCYTE % (test 0.8 % 0.0-2.0 N code = IG%) LYMPHOCYTE % (test code = LY%) 3.8 % 14.0-32.0 L MONOCYTE % (test code = MO%) 5.1 % 4.8-9.0 N EOSINOPHIL % (test code = EO%) 0.0 % 0.3-3.7 L BASOPHIL % (test code = BA%) 0.1 % 0.0-2.0 N NUCLEATED RBC % (test code = 0.0 % 0-0 N NRBC%) NEUTROPHIL # (test code = NT#) 15.69 x10 3/uL 2.0-7.6 H IMMATURE GRANULOCYTE # (test 0.14 x10 3/uL 0.00-0.03 H code = IG#) LYMPHOCYTE # (test code = LY#) 0.66 x10 3/uL 1.0-3.8 L MONOCYTE # (test code = MO#) 0.89 x10 3/uL 0.1-0.8 H EOSINOPHIL # (test code = EO#) 0.00 x10 3/uL 0.0-0.2 N BASOPHIL # (test code = BA#) 0.02 x10 3/uL 0.0-0.2 N NUCLEATED RBC # (test code = 0.00 x10 3/uL 0.0-0.1 N NRBC#) MANUAL DIFF REQUIRED (test NO code = MDIFF) CBC W/AUTO [id number] 10:17:00 Test Item Value Reference Range Interpretation Comments WHITE BLOOD CELL (test code = x10 3/uL 4.5-11.0 WBC) RED BLOOD CELL (test code = RBC) x10 6/uL 4.00-5.60 HEMOGLOBIN (test code = HGB) g/dL 12.5-16.9 HEMATOCRIT (test code = HCT) % 37.5-50.7 MEAN CELL VOLUME (test code = fL 81.0-99.0 MCV) MEAN CELL HGB (test code = MCH) pg 27.0-33.0 MEAN CELL HGB CONCETRATION (test g/dL 33.0-37.0 code = MCHC) RED CELL DISTRIBUTION WIDTH CV % 11.5-14.5 (test code = RDW) PLATELET COUNT (test code = PLT) 174 x10 3/uL 150-400 N NEUTROPHIL % (test code = NT%) % 56.0-77.0 LYMPHOCYTE % (test code = LY%) % 14.0-32.0 NEUTROPHIL # (test code = NT#) x10 3/uL 2.0-7.6 LYMPHOCYTE # (test code = LY#) x10 3/uL 1.0-3.8 MANUAL DIFF REQUIRED (test code = MDIFF) [id number] 12:10:59Hina Landis MD 09/09/2019 12:11 PMAirwayDate/Time: 09/08/2019 1:40 PMPerformed by: Hina Landis V., MDAuthorized by: Hina Landis MD Location: ORUrgency: ElectiveDifficult Airway: No Anesthesiologist: Hina Landis V., MDResident/STUDENT SERVICES COORDINATOR/AA: Piedad Uribe CRNAPerformed by: resident/STUDENT SERVICES COORDINATOR/AAPreoxygenated with 100% O2: Yes C-spine Precautions Maintained Throughout: Yes Mask Ventilation: Not attemptedFinal Airway Type: Supraglottic airwayFinal LMA: I-GelLMA Size: 5Number of Attempts at Approach: 1[facility]OR [place] < 1 [id number] 15:18:06Hm Interface, Radiology Results - 09/08/2019 3:21 PM CDTFormatting of this note might be di fferent from the original.EXAMINATION: OR FL < 1 HOURCLINICAL HISTORY: None provided.IMPRESSION:1. Fluoroscopy was provided in the operating. I was not present during the procedure.2. Please refer to the operative report for findings.3. Total Dose: 7 fluoroscopic images. 88.1 seconds of fluoroscopy time.Dell WilkesistECG Pre/Post [id number] 14:30:21 Test Item Value Reference Range Interpretation Comments Ventricular rate (test 76 code = 253) Atrial rate (test code 76 = 255) NV interval (test code 180 = 266) QRSD [...] 11:04,-Previous ECG has undetermined rhythm, needs review- [facility]XR Chest 2 [id number] 14:22:54Hm Interface, Radiology Results Incoming - 09/01/2019 2:26 PM CDT EXAMINATION: XR CHEST 2 VWCLINICAL HISTORY: Z01.818 Encounter for other preprocedural examination, preopCOMPARISON: 05/11/2019 IMPRESSION:Left jugular dialysis catheter is present extending to SVC. Right subclavian pacer remains in place. There is mild cardiomegaly. There ismoderate left pleural effusion, which is increased from prior study. There is associated basilar volu me loss. Mild blunting of right costophrenic angle suggesting trace right pleural effusion also present. There is no pneumothorax. Bones are demineralized. [facility]-[id number] Zoroastrian
--- NOTE | 2020-08-11 20:34 | RAD REPORT ---
EXAM DESCRIPTION: Jazmyn Single View08/11/2020 8:25 pm CLINICAL HISTORY: Shortness of breath COMPARISON: April 2020 FINDINGS: Small bilateral pleural effusions. Mild bilateral interstitial lung opacities The heart is mildly enlarged. Pacemaker leads are in place. IMPRESSION: Mild CHF
[2020-08-11 20:42] LABS: Arterial Blood Carboxyhemoglob 1.7 % (0-1.5); Blood O2 Saturation 96.5 % (92-98.5)
[2020-08-11 20:56] LABS: Absolute Lymphocytes (CBC) 0.9 K/uL (0.7-4.9); Basophils % 1.1 % (0-1.3); Hematocrit 33.7 % (39.6-49.0); Lymphocytes % 11.3 % (15.3-44.8); MPV 7.7 fL (7.6-11.3); RBC Red Blood Cell Count 3.88 M/uL (4.33-5.43)
[2020-08-11] MEDS ORDERED: LEVALBUTEROL 1.25 MG/3 ML NEB ONE (20:56)
[2020-08-11] MEDS ORDERED: IPRATROPIUM BROM 0.5MG/2.5ML ONE (20:56)
[2020-08-11 21:04] LABS: Protime INR 1.27
[2020-08-11] MEDS ORDERED: FUROSEMIDE 20 MG/ 2ML VIAL ONE (21:08)
[2020-08-11] MEDS ORDERED: FUROSEMIDE 40 MG/4 ML VIAL ONE (21:08)
[2020-08-11 21:18] LABS: Albumin 2.7 g/dL (3.4-5.0); Bilirubin Direct 0.1 mg/dL (0-0.2); Bilirubin Total 0.3 mg/dL (0.2-1.0); Magnesium 2.5 mg/dL (1.8-2.4); Potassium 3.4 mmol/L (3.5-5.1); Protein, Total 8.1 g/dL (6.4-8.2); Troponin (Emerg Dept Use Only) 0.04 ng/mL (0.0-0.045)
--- NOTE | 2020-08-11 21:43 | ER ---
Nurse's Notes [facility] Name: Catrachito Blanco Age: 84 yrs Sex: Male : 1935 Arrival Date: 08/11/2020 Time: 19:36 Bed 2 Private MD: Diagnosis: Acute on chronic combined systolic (congestive) and diastolic (congestive) heart failure;End Stage Renal Disease on Hemodialysis Presentation: 08/11 19:49 Chief complaint: Patient states: Pt reports SOB since Thursday. Chest tightness since lm7 Thursday. Spouse states pacemaker and aortic valve placement Apr 2020. Chief complaint:. Coronavirus screen: Client denies travel out of the [place] in the last 14 days. At this time, the client does not indicate any symptoms associated with coronavirus-19. Ebola Screen: Patient negative for fever greater than or equal to 101.5 degrees Fahrenheit, and additional compatible Ebola Virus Disease symptoms Patient denies exposure to infectious person. Patient denies travel to an Ebola-affected area in the 21 days before illness onset. Initial Sepsis Screen: Does the patient meet any 2 criteria? No. Patient's initial sepsis screen is negative. Does the patient have a suspected source of infection? No. Patient's initial sepsis screen is negative. Risk Assessment: Do you want to hurt yourself or someone else? Patient reports no desire to harm self or others. Onset of symptoms was August 06, 2020. 19:49 Method Of Arrival: Wheelchair lm7 19:49 Acuity: CHARU 2 lm7 Triage Assessment: 19:58 General: Appears uncomfortable, Behavior is calm, cooperative. Pain: Complains of pain lm7 in right sided chest Pain currently is 2 out of 10 on a pain scale. Quality of pain is described as tight. Respiratory: Reports shortness of breath at rest Respiratory effort is labored, Respiratory pattern is symmetrical, Breath sounds are diminished bilaterally. in right upper lobe, left upper lobe, left posterior upper lobe and right posterior upper lobe Onset: The symptoms/episode began/occurred the patient has moderate shortness of breath. Historical: - Allergies: 19:56 PENICILLINS; lm7 - Home Meds: 19:56 Eliquis 2.5 mg oral tab 1 tab 2 times per day [Active]; clopidogrel 75 mg Oral tab 1 lm7 tab once daily [Active]; pantoprazole 40 mg oral TbEC 1 tab once daily [Active]; - PMHx: 19:58 GI Bleed; Renal Disease; CHF; lm7 - Immunization history:: Client reports receiving the 2nd dose of the Covid vaccine, Client reports receiving the 1st dose of the Covid vaccine, . - Social history:: Smoking status: Patient denies any tobacco usage or history of. Screenin:30 Abuse screen: Denies threats or abuse. Denies injuries from another. Nutritional lp1 screening: No deficits noted. Tuberculosis screening: No symptoms or risk factors identified. Fall Risk Total Fabian Fall Scale indicates High Risk Score (45 or more points). Fall prevention measures have been instituted. Side Rails Up X 2 Frequent Obs/Assessments Occuring. Assessment: 20:20 General: Appears distressed, Behavior is appropriate for age. Pain: Denies pain. Neuro: lp1 Level of Consciousness is awake, alert, obeys commands, Oriented to person, place, situation. Cardiovascular: Capillary refill < 3 seconds in bilateral fingers toes Patient's skin is warm and dry. Rhythm is Paced Dialysis shunt: in the left bicep. Respiratory: Airway is patent Trachea midline Respiratory effort is labored, Respiratory pattern is symmetrical, Breath sounds are diminished bilaterally. GI: Abdomen is round. : No signs and/or symptoms were reported regarding the genitourinary system. EENT: No signs and/or symptoms were reported regarding the EENT system. Derm: Skin is intact, is thin, Skin is dry, Skin is normal. Musculoskeletal: No deficits noted. 21:30 Reassessment: Patient appears in no apparent distress at this time. Patient resting, lp1 eyes closed, Bipap in place. 23:03 Reassessment: Report given to receiving nurse. ea Vital Signs: 19:49 BP 96 / 64; Pulse 70; Resp 26; Temp 97.4; Pulse Ox 94% on R/A; Weight 95.25 kg; Height lm7 6 ft. (182.88 cm); Pain 2/10; 20:15 BP 117 / 54; Pulse 70; Resp 26; Pulse Ox 100% on 3 lpm NC; lp1 21:15 BP 123 / 57; Pulse 71; Resp 20; Pulse Ox 100% on 50% BiPAP; lp1 22:20 BP 124 / 61; Pulse 70; Resp 18; Pulse Ox 100% on BiPAP; ea 23:02 BP 113 / 53; Pulse 70; Resp 16; Pulse Ox 100% on 50% BiPAP; ea 19:49 Body Mass Index 28.48 (95.25 kg, 182.88 cm) lm7 ED Course: 19:36 Patient arrived in ED. am4 19:54 Triage completed. lm7 20:03 Rom Romero MD is Attending Physician. [facility] 20:14 Ayanna Cali, RN is Primary Nurse. ea 20:20 Arm band placed on. lp1 20:25 XRAY Chest (1 view) In Process Unspecified. EDMS 20:34 Missed attempt(s): 20 gauge in right antecubital area. lp1 20:41 Rosie Bruno, RN is Primary Nurse. lp1 20:45 Patient has correct armband on for positive identification. Placed in gown. Bed in low lp1 position. Call light in reach. Side rails up X2. medical instructor on. Pulse ox on. NIBP on. 20:52 Inserted saline lock: 20 gauge in right antecubital area, using aseptic technique. oe Blood collected. 21:40 Aris Ash MD is Hospitalizing Provider. [facility] 23:01 No provider procedures requiring assistance completed. Patient admitted, IV remains in ea place. Administered Medications: 20:41 Drug: Xopenex (levalbuterol) 1.25 mg Route: Inhalation; lp1 20:41 Drug: AtroVENT (ipratropium) Aerosol 0.5 mg Route: Inhalation; lp1 21:00 Drug: Lasix (furosemide) 60 mg Route: IVP; Site: right antecubital; lp1 22:30 Follow up: Response: No adverse reaction lp1 Outcome: 21:42 Decision to Hospitalize by Provider. [facility] 23:02 Instructed on the need for admit. ea 23:14 Admitted to Med/surg accompanied by tech, via stretcher, room 218, with oxygen, with ea chart, Report called to Receiving nurse 23:14 Condition: stable 23:18 Patient left the ED. lp1 Signatures: Dispatcher [employer] EDUT Rosie Cancino [facility] Rosie Bruno, ALFREDO RN lp1 Demond Hernandez oe Ayanna Cali RN RN Rom Romero MD MD 7 Silvia Flores am4 Corrections: (The following items were deleted from the chart) 20:14 19:49 BP 96 / 64; Pulse 24bpm; Resp 70bpm; Pulse Ox 94% RA; Temp 97.4F; 95.25 kg; lm7 Height 6 ft.; BMI: 28.4; Pain 2/10; lm7 23:01 22:20 BP 124 / 61; Pulse 70bpm; Resp 18bpm; Pulse Ox 100% RA; ea ea
--- NOTE | 2020-08-11 21:43 | EDPHYS ---
Physician Documentation [facility] Name: Catrachito Blanco Age: 84 yrs Sex: Male : 1935 Arrival Date: 08/11/2020 Time: 19:36 Bed 2 Private MD: ED Physician Rom Romero HPI: 08/11 20:16 This 84 yrs old Male presents to ER via Wheelchair with complaints of mh7 Shortness Of Breath. 20:16 The patient has shortness of breath at rest. Onset: The symptoms/episode began/occurred mh7 5 day(s) ago. Duration: The symptoms are intermittent, with no pattern. 20:17 The patient's shortness of breath is aggravated by exertion, light activity, is mh7 alleviated by nothing. Associated signs and symptoms: Pertinent positives: chest pain, Pertinent negatives: non-productive cough, productive cough, diaphoresis, dizziness, fever, hemoptysis, loss of consciousness, nausea, numbness in extremities, visual changes, vomiting. Severity of symptoms: At their worst the symptoms were moderate 2 day(s) ago, in the emergency department the symptoms are unchanged. Historical: - Allergies: 19:56 PENICILLINS; lm7 - Home Meds: 19:56 Eliquis 2.5 mg oral tab 1 tab 2 times per day [Active]; clopidogrel 75 mg Oral tab 1 lm7 tab once daily [Active]; pantoprazole 40 mg oral TbEC 1 tab once daily [Active]; - PMHx: 19:58 GI Bleed; Renal Disease; CHF; lm7 - Immunization history:: Client reports receiving the 2nd dose of the Covid vaccine, Client reports receiving the 1st dose of the Covid vaccine, . - Social history:: Smoking status: Patient denies any tobacco usage or history of. ROS: 20:17 Constitutional: Negative for fever, chills, and weight loss, Eyes: Negative for injury, mh7 pain, redness, and discharge, ENT: Negative for injury, pain, and discharge, Neck: Negative for injury, pain, and swelling, Abdomen/GI: Negative for abdominal pain, nausea, vomiting, diarrhea, and constipation, Back: Negative for injury and pain, : Negative for injury, bleeding, discharge, and swelling, MS/Extremity: Negative for injury and deformity, Skin: Negative for injury, rash, and discoloration, Neuro: Negative for headache, weakness, numbness, tingling, and seizure, Psych: Negative for depression, anxiety, suicide ideation, homicidal ideation, and hallucinations, Allergy/Immunology: Negative for hives, rash, and allergies, Endocrine: Negative for neck swelling, polydipsia, polyuria, polyphagia, and marked weight changes, Hematologic/Lymphatic: Negative for swollen nodes, abnormal bleeding, and unusual bruising. Exam: 20:17 Head/Face: Normocephalic, atraumatic. Eyes: Pupils equal round and reactive to light, mh7 extra-ocular motions intact. Lids and lashes normal. Conjunctiva and sclera are non-icteric and not injected. Cornea within normal limits. Periorbital areas with no swelling, redness, or edema. Neck: Trachea midline, no thyromegaly or masses palpated, and no cervical lymphadenopathy. Supple, full range of motion without nuchal rigidity, or vertebral point tenderness. No Meningismus. Chest/axilla: Normal chest wall appearance and motion. Nontender with no deformity. No lesions are appreciated. Cardiovascular: Regular rate and rhythm with a normal S1 and S2. No gallops, murmurs, or rubs. Normal PMI, no JVD. No pulse deficits. 20:17 Abdomen/GI: Soft, non-tender, with normal bowel sounds. No distension or tympany. No guarding or rebound. No evidence of tenderness throughout. Back: No spinal tenderness. No costovertebral tenderness. Full range of motion. Skin: Warm, dry with normal turgor. Normal color with no rashes, no lesions, and no evidence of cellulitis. MS/ Extremity: Pulses equal, no cyanosis. Neurovascular intact. Full, normal range of motion. Neuro: Awake and alert, GCS 15, oriented to person, place, time, and situation. Cranial nerves II-XII grossly intact. Motor strength 5/5 in all extremities. Sensory grossly intact. Cerebellar exam normal. Normal gait. Psych: Awake, alert, with orientation to person, place and time. Behavior, mood, and affect are within normal limits. 20:17 Constitutional: The patient appears alert, awake, in obvious distress, mildly distressed, uncomfortable. 20:17 Respiratory: mild respiratory distress is noted, Respirations: intercostal retractions, that is mild, tachypnea, that is mild, Breath sounds: decreased breath sounds, that are mild, are scattered, rhonchi, that are mild, are scattered, Respiratory rate: 26 Vital Signs: 19:49 BP 96 / 64; Pulse 70; Resp 26; Temp 97.4; Pulse Ox 94% on R/A; Weight 95.25 kg; Height lm7 6 ft. (182.88 cm); Pain 2/10; 20:15 BP 117 / 54; Pulse 70; Resp 26; Pulse Ox 100% on 3 lpm NC; lp1 21:15 BP 123 / 57; Pulse 71; Resp 20; Pulse Ox 100% on 50% BiPAP; lp1 22:20 BP 124 / 61; Pulse 70; Resp 18; Pulse Ox 100% on BiPAP; ea 23:02 BP 113 / 53; Pulse 70; Resp 16; Pulse Ox 100% on 50% BiPAP; ea 19:49 Body Mass Index 28.48 (95.25 kg, 182.88 cm) lm7 MDM: 21:38 Differential diagnosis: Anemia Anxiety Reaction asthma, Bronchitis CHF exacerbation, 7 Chronic Obstructive Pulmonary Disease Myocardial Infarction pneumonia, Pneumothorax Psychogenic pulmonary edema, reactive airway disease. Data reviewed: vital signs, nurses notes, old medical records, lab test result(s), cardiac enzymes, CBC, electrolytes, EKG, radiologic studies, plain films. Data interpreted: Pulse oximetry: on BiPAP is 100 %. Interpretation: acceptable. Counseling: I had a detailed discussion with the patient and/or guardian regarding: the historical points, exam findings, and any diagnostic results supporting the discharge/admit diagnosis, the presence of at least one elevated blood pressure reading (>120/80) during this emergency department visit, lab results, radiology results, the need for further work-up and treatment in the hospital. Response to treatment: the patient's symptoms have markedly improved after treatment. 21:42 Patient medically screened. [facility] 08/11 20:06 Order name: Basic Metabolic Panel; Complete Time: : [facility] 08/11 20:06 Order name: CBC with Diff; Complete Time: 21: [facility] 08/11 20:06 Order name: LFT's; Complete Time: :27 [facility] 08/11 20:06 Order name: Magnesium; Complete Time: : [facility] 08/11 20:06 Order name: NT PRO-BNP; Complete Time: 21:27 [facility] 08/11 20:06 Order name: PT-INR; Complete Time: 21:16 [facility] 08/11 20:06 Order name: Troponin (emerg Dept Use Only); Complete Time: 21:27 [facility] 08/11 20:15 Order name: Arterial Blood Gas [facility] 08/11 20:15 Order name: ABG Arterial Blood Gas [facility] 08/11 21:53 Order name: Basic Metabolic Panel [facility] 08/11 21:54 Order name: Basic Metabolic Panel [facility] 08/11 21:54 Order name: CBC with Automated Diff [facility] 08/11 21:54 Order name: CBC with Automated Diff [facility] 08/11 20:06 Order name: XRAY Chest (1 view); Complete Time: 20:47 [facility] 08/11 20:06 Order name: EKG; Complete Time: 20:07 [facility] 08/11 21:54 Order name: Low Sodium [facility] 08/11 21:54 Order name: EKG Electrocardiogram [facility] 08/11 21:54 Order name: EKG Electrocardiogram [facility] 08/11 21:54 Order name: NT PRO-BNP [facility] 08/11 21:54 Order name: NT PRO-BNP [facility] 08/11 21:54 Order name: Troponin I [facility] 08/11 21:54 Order name: Troponin I [facility] 08/11 21:54 Order name: Troponin I [facility] 08/11 21:55 Order name: Chest Single View [facility] 08/11 21:55 Order name: Chest Single View [facility] 08/11 22:29 Order name: SARS-COV-2 RT PCR [facility] 08/11 20:06 Order name: Cardiac monitoring; Complete Time: 20:34 [facility] 08/11 20:06 Order name: EKG - Nurse/Tech; Complete Time: 20:34 [facility] 08/11 20:06 Order name: IV Saline Lock; Complete Time: 21:09 [facility] 08/11 20:06 Order name: Labs collected and sent; Complete Time: 21:09 [facility] 08/11 20:06 Order name: O2 Per Protocol; Complete Time: 20:34 [facility] 08/11 20:06 Order name: O2 Sat Monitoring; Complete Time: 20:34 7 Administered Medications: 20:41 Drug: Xopenex (levalbuterol) 1.25 mg Route: Inhalation; lp1 20:41 Drug: AtroVENT (ipratropium) Aerosol 0.5 mg Route: Inhalation; lp1 21:00 Drug: Lasix (furosemide) 60 mg Route: IVP; Site: right antecubital; lp1 22:30 Follow up: Response: No adverse reaction lp1 Disposition: 08/11/20 21:42 Hospitalization ordered by Aris Ash for Inpatient Admission. Preliminary diagnosis are Acute on chronic combined systolic (congestive) and diastolic (congestive) heart failure, End Stage Renal Disease on Hemodialysis. - Bed requested for Telemetry/MedSurg (Inpatient). - Status is Inpatient Admission. lp1 - Condition is Stable. - Problem is an acute exacerbation. - Symptoms have improved. Signatures: Dispatcher [employer] EDMI Rosie Cancino 7 Rosie Bruno RN RN 1 Gisele Kothari RN RN Rom Romero MD MD 7 Corrections: (The following items were deleted from the chart) 21:43 21:09 CORONAVIRUS+MR.LAB.BRZ ordered. [facility] 22:35 21:42 Hospitalization Ordered by Aris Ash MD for Inpatient Admission. Preliminary cg diagnosis is Acute on chronic combined systolic (congestive) and diastolic (congestive) heart failure; End Stage Renal Disease on Hemodialysis. Bed requested for Telemetry/MedSurg (Inpatient). Status is Inpatient Admission. Condition is Stable. Problem is an acute exacerbation. Symptoms have improved. [facility] 23:18 22:35 08/11/2020 21:42 Hospitalization Ordered by Aris Ash MD for Inpatient lp1 Admission. Preliminary diagnosis is Acute on chronic combined systolic (congestive) and diastolic (congestive) heart failure; End Stage Renal Disease on Hemodialysis. Bed requested for Telemetry/MedSurg (Inpatient). Status is Inpatient Admission. Condition is Stable. Problem is an acute exacerbation. Symptoms have improved. cg
[2020-08-11] MEDS ORDERED: IPRATROPIUM BROM 0.5MG/2.5ML NEB PRN (21:46)
[2020-08-11] MEDS ORDERED: ACETAMINOPHEN 325 MG TABLET PO PRN (21:46)
[2020-08-11] MEDS ORDERED: ONDANSETRON 4 MG/2 ML VIAL IV PRN (21:46)
[2020-08-11] MEDS ORDERED: ALBUTEROL 2.5 MG/3 ML NEB SOL NEB PRN (21:46)
[2020-08-11] MEDS ORDERED: MORPHINE 4 MG/ML SYR IV PRN (21:46)
[2020-08-11 23:33] VITALS: BMI 28.1
[2020-08-12 05:09] LABS: Absolute Lymphocytes (CBC) 1.3 K/uL (0.7-4.9); Basophils % 0.8 % (0-1.3); Hematocrit 33.5 % (39.6-49.0); Lymphocytes % 14.3 % (15.3-44.8); RBC Red Blood Cell Count 3.87 M/uL (4.33-5.43)
[2020-08-12 05:37] LABS: Potassium 3.6 mmol/L (3.5-5.1)
--- NOTE | 2020-08-12 07:49 | RAD REPORT ---
EXAM DESCRIPTION: RAD - Chest Single View - 08/12/2020 5:44 am CLINICAL HISTORY: Chest Pain COMPARISON: August 11May 06 TECHNIQUE: AP portable chest image was obtained 08/12/2020 5:44 am . FINDINGS: Lung volumes are low. Lung volumes are reduced slightly from the comparison study. Right-s ided pleural effusion is similar or larger than the prior examination. Left-sided costophrenic angle blunting is present. Lung base atelectasis is present. Atelectasis and pleural effusions can mask paula g base infiltrates. Right-sided pacemaker remains in place. No new tube or line seen. Heart size is n ormal range for portable imaging. No pneumothorax. No acute bony abnormality seen. No acute aortic fi ndings suspected. IMPRESSION: Bilateral pleural effusions larger on the right. Right-sided pleural effusion appears to have enlarged. This can be monitored on subsequent imaging.
[2020-08-12] MEDS: FUROSEMIDE 40 MG/4 ML VIAL IV SCH ×3 (08:32→17:24)
[2020-08-12 09:34] VITALS: O2SAT 95
[2020-08-12] MEDS ORDERED: HYDROCODONE/APAP 7.5/325 MG TAB PO PRN (10:11)
[2020-08-12] MEDS ORDERED: TERAZOSIN HCL 5 MG CAP PO SCH (11:00)
[2020-08-12] MEDS: LANTHANUM 1000 MG TAB PO SCH ×2 (11:30→16:30)
--- NOTE | 2020-08-12 12:01 | P.HP ---
Certification for Inpatient Patient admitted to: Inpatient With expected LOS: >2 Midnights Practitioner: I am a practitioner with admitting privileges, knowledge of patient current condition, hospital course, and medical plan of care. Services: Services provided to patient in accordance with Admission requirements found in Title 42 Section 412.3 of the Code of Federal Regulations Patient History Date of Service: 08/12/20 Primary Care Provider: Nilsa Reason for admission: shortness of breath History of Present Illness: patient is an office patient of [facility] with a history of chf and esrd. He recently had a long hospitalization for upper gi bleed. Has been home for a few weeks and has been getting PT. The patient went to dialysis yesterday. He states that afterwards he was getting short of breath. The patient describes it this morning as feeling like someone was sitting on his chest. He states it was the same feeling he had yesterday. Came to the ER. Was put in for chf. This morning the patient is on a bipap. he has not been able to sleep. States he is more anxious at this time. due to his being awake all night. Pulse ox is 92% on room air. States he has a history of asthma. No history of copd. Allergies adhesive tape Allergy (Verified 12/06/19 12:16) Hives/Rash Penicillins Allergy (Verified 12/06/19 12:16) Itching/Hives/Rash Home Medications: Clopidogrel Bisulfate [Plavix*] 75 mg PO DAILY 03/11/19 Gabapentin [Neurontin*] 300 mg PO DAILY 03/11/19 Hydrocodone Bit/Acetaminophen [Hydrocodon-Acetaminoph 7.5-325] 1 tab PO Q8HP PRN 03/11/19 Latanoprost/Pf [Latanoprost 0.005% Eye Drop] 1 drop EACH EYE BEDTIME 03/11/19 Pioglitazone [Actos*] 1 tab PO SEECOM 03/11/19 Terazosin HCl 10 mg PO BID 03/11/19 - Past Medical/Surgical History Has patient received pneumonia vaccine in the past: Yes Diabetic: Yes -: Arthritis -: Anemia -: Diabetes-NIDDM -: HTN -: HD-T,TH,S -: Depression -: Sleep Apnes- CPAP@home -: [place] in 2011 with 2 stents -: Pacemaker -: Left Nephrectomy -: Cardiac stents x2 -: ORIF of the Right akkle -: cardiac cath x2 -: Dialysis Graft placement in the Left upper arm - Family History Mother -: Heart disease, Hypertension, Diabetes, Stroke, Other (see notes) Notes: [place] Father -: Heart disease, Hypertension - Social History Smoking Status: Never smoker Alcohol use: No CD- Drugs: No Caffeine use: Yes Place of Residence: Home Review of Systems 10-point ROS is otherwise unremarkable Respiratory: Shortness of Breath Physical Examination - Vital Signs Temperature: 97 F Blood Pressure: 131/62 Pulse: 70 Respirations: 20 Pulse Ox (%): 95 - Physical Exam General: Alert, Mild distress (pursed lip breathing ) HEENT: Atraumatic, PERRLA, Mucous membr. moist/pink, EOMI, Sclerae nonicteric Neck: Supple, 2+ carotid pulse no bruit, No LAD, Without JVD or thyroid abnormality Respiratory: Clear to auscultation bilaterally, Diminished Cardiovascular: Regular rate/rhythm, Normal S1 S2 Gastrointestinal: Normal bowel sounds, No tenderness Musculoskeletal: No tenderness Integumentary: No rashes Neurological: Normal gait, Normal speech, Normal strength at 5/5 x4 extr, Normal tone, Normal affect Lymphatics: No axilla or inguinal lymphadenopathy - Studies Laboratory Data (last 24 hrs) 08/11/20 20:46: PT 14.6 H, INR 1.27 08/11/20 20:46: WBC 7.70, Hgb 11.0 L, Hct 33.7 L, Plt Count 176 08/11/20 20:46: Sodium 135 L, Potassium 3.4 L, BUN 33 H, Creatinine 3.91 H, Glucose 221 H, Magnesium 2.5 H, Total Bilirubin 0.3, AST 20, ALT 17, Alkaline Phosphatase 116 Assessment and Plan - Problems (Diagnosis) (1) Asthma exacerbation Current Visit: Yes Status: Acute Plan: will treat him for with some steroids and breathing treatments. For now he is maintaining his oxygen on a nasal canula. However he is working to breath. Not in severe distress. So I would not put him on the bipap which is uncomfortable. Will start him on steroids and scheduled breathing treatment. Will try to treat his anxiety with one dose of xanax. Will start him on hydroxyzine after that. The best treatment of his anxiety is to make his breathing comfortable. As you know asthma and the shortness of breath it causes can create anxiety. Qualifiers: Asthma severity: moderate Asthma persistence: persistent Qualified Code(s): J45.41 - Moderate persistent asthma with (acute) exacerbation (2) Congestive heart failure (CHF) Current Visit: No Status: Chronic Plan: I do not believe he is having an acute exacerbation. He had dialysis just yesterday and was short of breath afterwards. No signs of volume overload. No pedal edema. No basilar crepitations. He has mild pulmonary effusions bilateral. However that should not significantly impact his breathing to this extent. Qualifiers: Heart failure type: systolic Heart failure chronicity: chronic Qualified Code(s): I50.22 - Chronic systolic (congestive) heart failure (3) End stage renal disease Current Visit: No Status: Acute Plan: Consult to Dr. Loaiza. He does not seem overloaded. Would not dialysis him emergently. Will try treating his asthma. if there is no improvement. We may consider another round of dialysis. Discharge Plan: Home Plan to discharge in: 48 Hours - Advance Directives Does patient have a Living Will: No Does patient have a Durable POA for Healthcare: No - Code Status/Comfort Care Code Status Assessed: No Code Status: Full Code Physician Review: Patient Assessed, Agree with Above Assessment and Plan Critical Care: No Time Spent Managing Pts Care (In Minutes): 45
[2020-08-12] MEDS ORDERED: ALPRAZOLAM 1 MG TABLET PO PRN (13:30)
[2020-08-12] MEDS ORDERED: METHYLPREDNISOLONE 40 MG INJ IV ONE (13:38)
--- NOTE | 2020-08-12 13:46 | P.CNS ---
Primary Care Provider: Nilsa Chief Complaint: shortness of breath Allergies adhesive tape Allergy (Verified 12/06/19 12:16) Hives/Rash Penicillins Allergy (Verified 12/06/19 12:16) Itching/Hives/Rash Home Medications: Clopidogrel Bisulfate [Plavix*] 75 mg PO DAILY 03/11/19 Gabapentin [Neurontin*] 300 mg PO DAILY 03/11/19 Hydrocodone Bit/Acetaminophen [Hydrocodon-Acetaminoph 7.5-325] 1 tab PO Q8HP PRN 03/11/19 Latanoprost/Pf [Latanoprost 0.005% Eye Drop] 1 drop EACH EYE BEDTIME 03/11/19 Pioglitazone [Actos*] 1 tab PO SEECOM 03/11/19 Terazosin HCl 10 mg PO BID 03/11/19 - Past Medical/Surgical History Diabetic: Yes -: Arthritis -: Anemia -: Diabetes-NIDDM -: HTN -: HD-T,TH,S -: Depression -: Sleep Apnes- CPAP@home -: [place] in 2011 with 2 stents -: Pacemaker -: Left Nephrectomy -: Cardiac stents x2 -: ORIF of the Right akkle -: cardiac cath x2 -: Dialysis Graft placement in the Left upper arm - Family History Mother Medical History: Heart disease, Hypertension, Diabetes, Stroke, Other (see notes) Notes: [place] Father Medical History: Heart disease, Hypertension - Social History Smoking Status: Unknown if ever smoked Alcohol use: No CD- Drugs: No Caffeine use: Yes Place of Residence: Home Physical Examination Temp Pulse Resp BP Pulse Ox 97 F 70 20 131/62 95 08/12/20 12:07 08/12/20 12:07 08/12/20 12:07 08/12/20 12:07 08/12/20 12:07 Laboratory Data (last 24 hrs) 08/11/20 20:46: PT 14.6 H, INR 1.27 08/11/20 20:46: WBC 7.70, Hgb 11.0 L, Hct 33.7 L, Plt Count 176 08/11/20 20:46: Sodium 135 L, Potassium 3.4 L, BUN 33 H, Creatinine 3.91 H, Glucose 221 H, Magnesium 2.5 H, Total Bilirubin 0.3, AST 20, ALT 17, Alkaline Phosphatase 116 Conclusions/Impression: 84M w/ PMHx of ESRD on HD TTSat, last HD yesterday, CHF & ? hx of pulmo Htn w/ dilated main pulmo artery on cross sectional chest CT in Oct 2019, who p/w progressive SOB over the past few wks, admitted for further eval/mngt. CXR showed pulmo edema & bilateral pleural effusion R > L. BP low normal. O2sat low 90s on O2 suppl. No peripheral edema. Pt currently close to his dry wt. No clear e/o sepsis. Discussed w/ Dr. Koroma. Plan is to transfer [facility] for acute respi failure, bilateral pleural effusion, possible thoracentesis; admit to ICU; chest CT non-contrast; possible thoracentesis; plan next HD either today or tomorrow, via conventional mode or CRRT depending on hemodynamics; will request pharmacy operations manager to be on board. Dr. Wang Garcia, hospitalist, will be attending at [facility] & I spoke w/ him over the phone & he accepted pt.
[2020-08-12] MEDS ORDERED: LEVALBUTEROL 1.25 MG/3 ML NEB NEB SCH (16:00)
[2020-08-12 19:25] VITALS: BP 139/63; TEMP 98.1
[2020-08-12] MEDS ORDERED: Latanoprost/Pf [Latanoprost 0.005% Eye Drop] 7.5 ML Drops OPTH SCH (21:00)
[2020-08-12] MEDS ORDERED: APIXABAN 2.5 MG TABLET PO SCH (21:00)
[2020-08-12] MEDS ORDERED: TERAZOSIN HCL 10 MG PO SCH (21:00)
--- NOTE | 2020-08-13 05:10 | P.CNS ---
Date of Consult: 08/12/20 Reason for Consult: ESRD Requesting Physician: Aris Ash Primary Care Provider: Nilsa Chief Complaint: shortness of breath History of Present Illness: 84M w/ PMHx of ESRD on HD TTSat, last HD yesterday, hx of renal cell carcinoma in 1986, DM2, Htn, CHF, s/p cardiac pacemaker placement, recent long hospitalization for upper GI bleed, hx of asthma, depression, & ? hx of pulmo Htn w/ dilated main pulmo artery on cross sectional chest CT in Oct 2019, who p/w progressive SOB over the past few wks, admitted for further eval/mngt. On my eval, he was noted to only be able to speak in phrases d/t SOB. CXR showed pulmo edema & bilateral pleural effusion R > L. BP low normal. O2sat low 90s on O2 support. No peripheral edema. Pt currently close to his dry wt. No clear e/o sepsis. Allergies adhesive tape Allergy (Verified 12/06/19 12:16) Hives/Rash Penicillins Allergy (Verified 12/06/19 12:16) Itching/Hives/Rash Home Medications: Clopidogrel Bisulfate [Plavix*] 75 mg PO DAILY 03/11/19 Gabapentin [Neurontin*] 300 mg PO BEDTIME 03/11/19 Hydrocodone Bit/Acetaminophen [Hydrocodon-Acetaminoph 7.5-325] 1 tab PO Q8HP PRN 03/11/19 Latanoprost/Pf [Latanoprost 0.005% Eye Drop] 1 drop EACH EYE BEDTIME 03/11/19 Pioglitazone [Actos*] 1 tab PO SEECOM 03/11/19 Terazosin HCl 10 mg PO BID 03/11/19 Albuterol Sulfate [Albuterol Sulfate Hfa] 1 puff IH SEECOM PRN 08/12/20 Apixaban [Eliquis *] 1 tab PO Q12H 08/12/20 Cyclobenzaprine HCl [Flexeril] 1 tab PO DAILY 08/12/20 Fluticasone Propionate 1 spray IH BID 08/12/20 Lanthanum Carbonate [Fosrenol] 1 tab PO SEECOM 08/12/20 Montelukast [Singulair*] 1 tab PO DAILY 08/12/20 Pantoprazole [Protonix Tab*] 1 tab PO DAILY 08/12/20 - Past Medical/Surgical History Diabetic: Yes -: Arthritis -: Anemia -: Diabetes-NIDDM -: HTN -: HD-T,,S -: Depression -: Sleep Apnes- CPAP@home -: [place] in 2011 with 2 stents -: Pacemaker -: Left Nephrectomy -: Cardiac stents x2 -: ORIF of the Right akkle -: cardiac cath x2 -: Dialysis Graft placement in the Left upper arm - Family History Mother Medical History: Heart disease, Hypertension, Diabetes, Stroke, Other (see notes) Notes: [place] Father Medical History: Heart disease, Hypertension - Social History Smoking Status: Unknown if ever smoked Alcohol use: No CD- Drugs: No Caffeine use: Yes Place of Residence: Home Review of Systems General: Weakness Eyes: Unremarkable ENT: Unremarkable Respiratory: Shortness of Breath Cardiovascular: Orthopnea Gastrointestinal: Unremarkable Genitourinary: Unremarkable Musculoskeletal: Unremarkable Integumentary: Unremarkable Neurological: Weakness Lymphatics: Unremarkable Physical Examination Temp Pulse Resp BP Pulse Ox 98.1 F 70 20 139/63 91 08/12/20 16:00 08/12/20 16:00 08/12/20 16:00 08/12/20 16:00 08/12/20 16:00 General: Moderate distress HEENT: Atraumatic, Normocephalic Neck: Supple Respiratory: Other (Diminished breath sounds bibasal) Cardiovascular: No edema, Normal S1 S2, No gallops, No rubs, No murmurs Gastrointestinal: Soft and benign, Non-distended Musculoskeletal: No clubbing, No swelling Integumentary: No rashes Neurological: Normal speech, Normal tone Lymphatics: No axilla or inguinal lymphadenopathy Urinary: Other (No fish) External genitalia: Deferred Rectal: Deferred Conclusions/Impression: # ESRD on HD TTSat history of renal cell carcinoma in 1986 No acute indication for HD today Monitor renal panel # Acute on chronic respi failure 2/2 bilateral pleural effusion Reports hx of asthma ? hx of pulmo Htn w/ dilated main pulmo artery on cross sectional chest CT in Oct 2019 ABG last night unremarkable COVID negative CXR showed pulmo edema & bilateral pleural effusion R > L BP low normal Trop sl. bumped BNP severely elevated O2sat low 90s on O2 support via [place] No peripheral edema Pt currently close to his estimated dry wt No clear e/o sepsis Will need a chest CT & likely diagnostic/therapeutic thoracentesis # Hypertension,CHF, status post cardiac pacemaker placement BP currently in low normal range; +hypotensive episode last order builder # Anemia H/o recent long hospitalization for upper GI bleed H/H currently at goal Epogen q TTSat # Renal osteodystrophy Monitor Ca & Phos # Disposition Discussed w/ Dr. Koroma. Plan is to transfer to [facility] for acute respi failure, bilateral pleural effusion, possible thoracentesis; admit to ICU; chest CT non-contrast; possible thoracentesis; plan next HD either today, tomorrow, or in 2 days, via conventional mode or CRRT depending on hemodynamics; will request wood boatbuilder to be on board. Dr. Wang Garcia, hospitalist, will be attending at [facility] & I spoke w/ him over the phone & he accepted pt.
[2020-08-13] MEDS ORDERED: CLOPIDOGREL 75 MG TABLET PO SCH (09:00)
[2020-08-13] MEDS ORDERED: GABAPENTIN 300 MG CAP PO SCH (09:00)
--- NOTE | 2020-08-13 15:06 | P.DS ---
Admission Date: 08/11/20 Discharge Date: 08/13/20 Primary Care Provider: Nilsa Disposition: TRANSFER TO [facility] Reason for Admission: shortness of breath - Problems (1) Asthma exacerbation Status: Acute Qualifiers: Asthma severity: moderate Asthma persistence: persistent Qualified Code(s): J45.41 - Moderate persistent asthma with (acute) exacerbation (2) Congestive heart failure (CHF) Status: Chronic Qualifiers: Heart failure type: systolic Heart failure chronicity: chronic Qualified Code(s): I50.22 - Chronic systolic (congestive) heart failure (3) End stage renal disease Status: Chronic (4) Pleural effusion Status: Acute Brief History of Present Illness: patient is an office patient of [facility] with a history of chf and esrd. He recently had a long hospitalization for upper gi bleed. Has been home for a few weeks and has been getting PT. The patient went to dialysis yesterday. He states that afterwards he was getting short of breath. The patient describes it this morning as feeling like someone was sitting on his chest. He states it was the same feeling he had yesterday. Came to the ER. Was put in for chf. This morning the patient is on a bipap. he has not been able to sleep. States he is more anxious at this time. due to his being awake all night. Pulse ox is 92% on room air. States he has a history of asthma. No history of copd. Hospital Course: Patient was admitted for shortness of breath. He was able to maintain a pulse ox. However was working hard to breath. The patient was seen by Dr. Grimaldo his regular channel marketing specialist. states that his pleural effusion was growing and would explain his sob. He would need a ct and paracentesis. As these were not provided here the decision was made to transfer the patient. Thank you for allowing us to take part in our care. Vital Signs/Physical Exam: Temp Pulse Resp BP Pulse Ox 98.1 F 70 20 139/63 91 08/12/20 16:00 08/12/20 16:00 08/12/20 16:00 08/12/20 16:00 08/12/20 16:00 General: Alert, In no apparent distress HEENT: Atraumatic, PERRLA, EOMI Neck: Supple, JVD not distended Respiratory: Clear to auscultation bilaterally, Normal air movement Cardiovascular: Regular rate/rhythm, Normal S1 S2 Gastrointestinal: Normal bowel sounds, No tenderness Musculoskeletal: No tenderness Integumentary: No rashes Neurological: Normal speech, Normal tone, Normal affect Lymphatics: No axilla or inguinal lymphadenopathy Laboratory Data at Discharge: WBC 9.10 K/uL (4.3-10.9) D 08/12/20 04:13 Hgb 10.8 g/dL (13.6-17.9) L 08/12/20 04:13 Hct 33.5 % (39.6-49.0) L 08/12/20 04:13 Plt Count 191 K/uL (152-406) 08/12/20 04:13 PT 14.6 SECONDS (9.5-12.5) H 08/11/20 20:46 INR 1.27 08/11/20 20:46 Sodium 136 mmol/L (136-145) 08/12/20 04:13 Potassium 3.6 mmol/L (3.5-5.1) 08/12/20 04:13 BUN 36 mg/dL (7-18) H 08/12/20 04:13 Creatinine 4.18 mg/dL (0.55-1.3) H 08/12/20 04:13 Glucose 142 mg/dL (74-106) H 08/12/20 04:13 Magnesium 2.5 mg/dL (1.8-2.4) H 08/11/20 20:46 Total Bilirubin 0.3 mg/dL (0.2-1.0) 08/11/20 20:46 AST 20 U/L (15-37) 08/11/20 20:46 ALT 17 U/L (12-78) 08/11/20 20:46 Alkaline Phosphatase 116 U/L (45-117) 08/11/20 20:46 Troponin I 0.05 ng/mL (0.0-0.045) H 08/12/20 04:13 Home Medications: RX: Clopidogrel Bisulfate [Plavix*] 75 mg PO DAILY 03/11/19 RX: Gabapentin [Neurontin*] 300 mg PO BEDTIME 03/11/19 RX: Hydrocodone Bit/Acetaminophen [Hydrocodon-Acetaminoph 7.5-325] 1 tab PO Q8HP PRN 03/11/19 RX: Latanoprost/Pf [Latanoprost 0.005% Eye Drop] 1 drop EACH EYE BEDTIME 03/11/19 RX: Pioglitazone [Actos*] 1 tab PO SEECOM 03/11/19 RX: Terazosin HCl 10 mg PO BID 03/11/19 Albuterol Sulfate [Albuterol Sulfate Hfa] 1 puff IH SEECOM PRN 08/12/20 Apixaban [Eliquis *] 1 tab PO Q12H 08/12/20 Lanthanum Carbonate [Fosrenol] 1 tab PO SEECOM 08/12/20 RX: Cyclobenzaprine HCl [Flexeril] 1 tab PO DAILY 08/12/20 RX: Fluticasone Propionate 1 spray IH BID 08/12/20 RX: Montelukast [Singulair*] 1 tab PO DAILY 08/12/20 RX: Pantoprazole [Protonix Tab*] 1 tab PO DAILY 08/12/20 Followup: OOT,OOT [Primary Care Provider] - Time spent managing pt's care (in minutes): 40
== END 2020-08-12 18:06 | disposition short-term general hospital (02) | DRG 189 ==
LOC: ER 19:31 → ERHOLD 21:44 → 2ND 23:02
PROVIDERS: ADMIT Internal Medicine; ATTEND Internal Medicine
PROC: 5A09357 Assistance with Respiratory Ventilation, Less than 24 Consecutive Hours, Continuous Positive Airway Pressure (ICD-10-PCS; principal; 2020-08-11)
DX: J96.20 Acute and chronic respiratory failure, unspecified whether with hypoxia or hypercapnia (principal); N18.6 End stage renal disease; J45.41 Moderate persistent asthma with (acute) exacerbation; I50.22 Chronic systolic (congestive) heart failure; I13.2 Hypertensive heart and chronic kidney disease with heart failure and with stage 5 chronic kidney disease, or end stage renal disease; E11.22 Type 2 diabetes mellitus with diabetic chronic kidney disease; F41.9 Anxiety disorder, unspecified; N25.0 Renal osteodystrophy; D64.9 Anemia, unspecified; I25.2 Old myocardial infarction; Z88.0 Allergy status to penicillin; Z79.01 Long term (current) use of anticoagulants; Z79.02 Long term (current) use of antithrombotics/antiplatelets; Z79.899 Other long term (current) drug therapy; Z88.8 Allergy status to other drugs, medicaments and biological substances; Z91.048 Other nonmedicinal substance allergy status; Z99.2 Dependence on renal dialysis; Z95.5 Presence of coronary angioplasty implant and graft; Z20.822 Contact with and (suspected) exposure to COVID-19
CPT/HCPCS: 36415; 71045; 80048; 80076; 82805; 83735; 83880; 84484; 85025; 85610; 93005; 94640; 94660; 94760; 96374; 99285; J1940; J2920; U0003

== ENCOUNTER 2020-11-18 16:21 | Inpatient (IN) | payer OTHER ==
--- OUTSIDE RECORDS SUMMARY | 2020-11-18 16:30 | XMS REPORT | Continuity of Care Document ---
:1935 Author Organization [facility] t Address [address] [place] [address] Care Team Providers Name Role Phone Jeffrey Garcia MD Primary Care Physician JEFFREY GARCIA Attending Clinician Unavailable KENY Attending Clinician Unavailable MD Marcelo BUSTILLO Attending Clinician Unavailable GERONIMO Attending Clinician Unavailable TALON Attending Clinician Unavailable ROBERTH Attending Clinician Unavailable AJ Attending Clinician Unavailable JEFFREY GARCIA Admitting Clinician Unavailable KENY Admitting Clinician Unavailable MD Marcelo BUSTILLO Admitting Clinician Unavailable AJ Admitting Clinician Unavailable Payers Payer Name Policy Type Policy Number Effective Date Expiration Date S ource Problems Condition Condition Condition Status Onset Resolution Last Treating Co mments Source Name Details Category Date Date Treatment Clinician Date ESRD (end ESRD (end Disease Active Met hodi stage stage 4-13 st renal renal 00:00: Hospita disease) disease) 00 l on on dialysis dialysis 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, occlusion, 00:00: Ho spita left left 00 l Clotted Clotted Disease Active Methodi renal renal 2-12 st dialysis dialysis 00:00: Hospit a AV graft AV graft 00 l AV fistula AV fistula Disease Active M ethodi infection infection [address] [facility] 00:00: Hospita 00 l Arterioven Arterioven Disease Active M ethodi ous ous 8-20 st fistula fistula 00:00: Hospita occlusion occlusion 00 l Allergies, Adverse Reactions, Alerts Allergy Allergy Status Severity Reaction(s) Onset Inactive Treating Comm ents Source Name Type Date Date Clinician Penicill DA Active U [facility] ins 2-07 Clear 00:00: Sandy 00 [facility] Latex Propensi Active Hives Blisterin Metho di ty to 2-[address] adverse 00:00: Hospita reaction 00 l s to drug Adhesive Propensi Active Other (See blisters Methodi Tape-Nellie ty to Comments) 617 st icones adverse 00:00: Hospita reaction 00 l s to drug Penicill Propensi Active Swelling Meth alyson ins ty to 8-20 st adverse 00:00: Hospita reaction 00 l s to drug Family History Family Member Diagnosis Comments Start Date Stop Date Source Natural mother Heart disease [facility] Natural mother Hypertension [facility] Natural mother Stroke [facility] mother Diabetes [facility] mother Heart attack [facility] father Depression [facility] father Heart disease [facility] father Hypertension [facility] Social History Social Habit Start Date Stop Date Quantity Comments Source Tobacco use and 2019-09-09 2019-09-09 Never used Jainism exposure 00:00:00 00:00:00 Hospital Alcohol intake 2019-09-09 2019-09-09 Current Jainism 00:00:00 00:00:00 non-drinker of Hospital alcohol (finding) Sex Ass[birth year] At [birth year] Jainism 00:00:00 00:00:00 Hospital Smoking Status Start Date Stop Date Source Never smoker [facility] Hospit al Medications Ordered Filled Start Stop Current Ordering Indication Dosage Frequency Signature Comments Components Source Medication Medication Date Date Medication? Clinician (SIG) Name Name terazosin Yes 10mg Q.5D Take 10 mg Me thodi (HYTRIN) 10 6-[address] MG capsule 22:30: (two) Hospit a 43 times a l day. gabapentin Yes 300mg QD Take 300 Me thodi (NEURONTIN) 6-[address] 300 mg 22:30: mouth Hospita capsule 43 daily. l lanthanum 2020-0 Yes 1000mg Q.[id number] Chew 1,000 Methodi (FOSRENOL) 6-[id number] 1000 MG 22:30: 3D (three) Hospita chewable 43 times a l tablet day with meals. pioglitazon 2020-0 Yes 15mg QD Take 15 mg Methodi e (ACTOS) 6-[address] 15 MG 22:30: daily. Hospita tablet 43 l latanoprost 2020-0 Yes 1[drp] QD Administer Methodi (XALATAN) 6-[address] 0.005 % 22:30: both eyes Hospi ta ophthalmic 43 nightly. l solution clopidogreL 2020-0 Yes 75mg QD Take 75 mg Methodi (PLAVIX) 75 6-[address] mg tablet 22:30: daily. Hospit a 43 l albuterol 2020-0 Yes 2{puff} Q6H Inhale 2 M ethodi (PROAIR 6-[address] HFA) 90 22:30: every 6 Hospita mcg/actuati 43 (six) l on inhaler hours as needed for wheezing. polyethylen 2020-0 Yes 17g QD Take 17 g M ethodi e glycol 6-[address] (MIRALAX) 22:30: daily. Hospit a 17 gram 43 l packet ascorbic 2020-0 Yes 500mg QD Take 500 Meth alyson acid, 6-[address] vitamin C, 22:30: mouth Hospit a (VITAMIN C) 43 daily. l 500 MG tablet acetaminoph 2020-0 Yes 500mg Q.[id number] Take 500 Methodi en 6-[id number] (TYLENOL) 22:30: 3D mouth 3 Hospi ta 500 MG 43 (three) l tablet times a day as needed for mild pain (FOR BACK AND HIP PAIN). Saccharomyc 2020-0 Yes 250mg QD Take 250 M ethodi es 6-[address] boulardii 22:30: mouth Hospita (FLORASTOR) 43 daily. l 250 mg capsule diphenhydrA 2020-0 Yes 25mg Q6H Take 25 mg Methodi MINE 6-[address] (BenadryL) 22:30: every 6 Hosp maco 25 mg 43 (six) l capsule hours as needed for itching. cholecalcif 2020-0 Yes QD Take by Met osorio michaels, 6-[address] vitamin D3, 22:30: daily. Hosp maco (VITAMIN D3 43 l ORAL) Procedures This patient has no known procedures. Plan of Care Planned Activity Planned Date Details Comments Source Future Scheduled Test 65+ PNEUMOCOCCAL [facility] VACCINE (1 of 4 - PCV13) [code = 65+ PNEUMOCOCCAL VACCINE (1 of 4 - PCV13)] Future Scheduled Test DIABETES: RETINAL EYE [facility] EXAM [code = DIABETES: RETINAL EYE EXAM] Future Scheduled Test DIABETIC FOOT EXAM [facility] [code = DIABETIC FOOT EXAM] Future Scheduled Test COVID-19 VACCINE (1) [facility] [code = COVID-19 VACCINE (1)] Future Scheduled Test SHINGLES VACCINES (#1) [facility] [code = SHINGLES VACCINES (#1)] Future Scheduled Test INFLUENZA VACCINE [code [facility] = INFLUENZA VACCINE] Encounters Start End Encounter Admission Attending Care Care Encounter Source Date/Time Date/Time Type Type Clinicians Facility Department ID 2019-09-08 2019-09-08 [facility] [id number] [place] 00:00:00 00:00:00 IMRAN 853 Method i 2019-09-01 2019-09-01 Outpatient KENY, [facility] [id number] [place] 00:00:00 00:00:[address] IMRAN [address] 2019-09-01 2019-09-01 Outpatient WOJCIECHOWS [facility] [id number] [place] 00:00:00 00:00:00 KI, 485 Method i KALPESH 2019-07-11 2019-07-12 Inpatient JESUS GARCIA [facility] 021 [id number] [place] 00:00:00 00:00:[address] 2019-06-02 2019-06-02 Outpatient ROBERTH [facility] [id number] [place] 00:00:00 00:00:00 VIDYA [address] 2019-05-11 2019-05-13 Inpatient AJ [facility] [id number] [place] 00:00:00 00:00:00 ORLIN [address] Results Test Description Test Time Test Comments Results Result Comments Source FUNGUS CULTURE + SMEAR 2020-09-11 23:33:00 Test Item Value Reference Range Interpretation Comme nts CULTURE (BEAKER) (test code = 1095) No fungus isolated in 28 days FUNGUS SMEAR (AKER) (test code = 1406) No fungi seen POCT-GLUCOSE [id number] 10:02:00 Test Item Value Reference Range Interpretation Comments POC-GLUCOSE METER 114 mg/dL 70-110 H : TESTED A T SLSL 1317 (BEAKER) (test code [facility], = 1538) [place] [id number]: Asphalt Blender/Techni patti ID = [id number] for Buff ord, Lisa POCT-GLUCOSE [id number] 10:01:00 Test Item Value Reference Range Interpretation Comments POC-GLUCOSE METER 161 mg/dL 70-110 H : TESTED A T SLSL 1317 (BEAKER) (test code [facility], = 1538) [place] [id number]: Asphalt Blender/Techni patti ID = [id number] for Will Sage readcas POCT-GLUCOSE [id number] 09:59:00 Test Item Value Reference Range Interpretation Comments POC-GLUCOSE METER 141 mg/dL 70-110 H : TESTED A T SLSL 1317 (BEAKER) (test code [facility], = 1538) [place] [id number]: Asphalt Blender/Techni patti ID = [id number] for Buff ord, Lisa POCT-GLUCOSE [id number] 09:55:00 Test Item Value Reference Range Interpretation Comments POC-GLUCOSE METER 138 mg/dL 70-110 H : TESTED A T SLSL 1317 (BEAKER) (test code [facility], = 1538) [place] [id number]: Asphalt Blender/Techni patti ID = [id number] for Buff ord, Lisa POCT-GLUCOSE [id number] 08:57:00 Test Item Value Reference Range Interpretation Comments POC-GLUCOSE METER 170 mg/dL 70-110 H : TESTED A T SLSL 1317 (BEAKER) (test [facility], = 1538) [place] 183258: Asphalt Blender/Techni patti ID = [id number] for Osmel h, Beulah POCT-GLUCOSE [id number] 08:52:00 Test Item Value Reference Range Interpretation Comments POC-GLUCOSE METER 147 mg/dL 70-110 H : TESTED A T SLSL 1317 (BEAKER) (test code [facility], = 1538) [place] 183258: Asphalt Blender/Techni patti ID = [id number] for Osmel h, Beulah POCT-GLUCOSE [id number] 08:50:00 Test Item Value Reference Range Interpretation Comments POC-GLUCOSE METER 135 mg/dL 70-110 H : TESTED A T SLSL 1317 (BEAKER) (test code [facility], = 1538) [place] [address]258: Asphalt Blender/Techni patti ID = [id number] for Osmel h, Beulah POCT-GLUCOSE [id number] 08:47:00 Test Item Value Reference Range Interpretation Comments POC-GLUCOSE METER 188 mg/dL 70-110 H : TESTED A T SLSL 1317 (BEAKER) (test code [facility], = 1538) [place] [address]258: Asphalt Blender/Techni patti ID = [id number] for Nwad iufu, Michelle POCT-GLUCOSE [id number] 08:43:00 Test Item Value Reference Range Interpretation Comments POC-GLUCOSE METER 163 mg/dL 70-110 H : TESTED A T SLSL 1317 (BEAKER) (test code [facility], = 1538) [place] 183258: Asphalt Blender/Techni patti ID = [id number] for Buff ord, Lisa POCT-GLUCOSE [id number] 08:38:00 Test Item Value Reference Range Interpretation Comments POC-GLUCOSE METER 219 mg/dL 70-110 H : TESTED A T SLSL 1317 (BEAKER) (test code [facility], = 1538) [place] [address]258: Asphalt Blender/Techni patti ID = [id number] for Buff ord, Lisa BLOOD [id number] 10:01:00 Test Item Value Reference Range Interpretation Comments CULTURE (BEAKER) (test No growth in 5 days code = 1095) BLOOD [id number] 10:01:00 Test Item Value Reference Range Interpretation Comments CULTURE (BEAKER) (test No growth in 5 days code = 1095) [id number] 15:43:00Medical Cytology Report Case: [id number] Authorizing Provider: Jose Uribe MD Collected: 08/15/2020 08:14 AM Ordering Location: [facility] ICU Received: 08/15/2020 08:14 AM Pathologist: Raquel Connelly MD Specimen: Pl eural, Right RIGHT PLEURAL FLUID (CYTOSPINS AND CELL BLOCK): - NEGATIVE FOR MALIGNANCY - ABUNDANT EOSINOPHILS ARE PRESENTSigning Pathologist Direct Phone Line: [phone] electronically signed by Raquel Connelly MD on 08/17/2020 at 3:43 PM The specimen source has been corrected. Dr. Jose Uribe has been notified of thiscorrection on 08/17/20 at 3:30 pm. [id number], [id number]; ESRD on HD TTSat, last HD on 08/11, hx of renal cell carcinoma in 1986, DM2, Htn, CHF, s/p cardiac pacemaker placement, recent long hospitalization for upper GI bleed, hx of asthma, depression, & ? hx of pulmo Htn w/ dilated main pulmoartery on cross sectional chest CT in Oct 2019, who p/w progressive SOB, admitted for further eval/mngtRIGHT PLEURAL FLUIDReceived 1100 ml bloody fluid; prepared 4 cytospins and cell block(A2) - cell block prepared using cytorich red fixative to lyse red blood cells and fixed in formalin at 2:51 pm on08/15/20Performed. [facility], [facility] of [facility]ology, [address] [place] [address], [facility], [facility] of [facility]ology, [address] [place] [address], [facility], [facility] of [facility], [address] [place] [address], [id number] 2020-08-17 12:56:00Medical Cytology Report Case: [id number] Authorizing Provider: Jose Uribe MD Collected: 08/15/2020 02:27 PM Ordering Location: [address] Med/Surg Received: 08/16/2020 08:08 AM Pathologist: Raquel Connelly MD Specimen: Pleural, Right PLEURAL, RIGHT, FLUID (CYTOSPINS AND CELL BLOCK): - PREDOMINANTLY BLOOD; NEGATIVE FOR MALIGNANCY Signing Pathologist Direct Phone Line: [phone] signed by Raquel Connelly MD on 08/17/2020 at 12:56 [id number], [id number] pleural effusion, history of renal cell carcinoma in 1986; ESRD; DM2,CHF, s/p cardiac pacemaker placement, recent long hospitalization for upper GI bleedPLEURAL, RIGHT, FLUIDReceived 450 mls bloody fluid; prepared 4 cytospins and cell block(A2) - cell block prepared using cytorich red fixative to lyse red blood cells and it was fixed in formalin at 12:45 pm on 08/16/20Performed. [facility], Department of Pathology, [address] [place] [address], [facility], Department of Pathology, [address] [place] [address], [facility], [facility] of [facility]ology, [address] [place] [address], KLQV FLUID CULTURE + GRAM [id number] 09:13:00 Test Item Value Reference Range Interpretation Comments CULTURE (BEAKER) (test No growth code = 1095) GRAM STAIN RESULT 1+ White blood cells (BEAKER) (test code = seen 1123) GRAM STAIN RESULT No organisms seen (BEAKER) (test code = 78067) RAD, CHEST, 1 VIEW, NON [id number] 07:29:00Reason for exam:->Pleural effusionShould this be performed at the bedside?->Yes [facility] : 1935 Sex: MFINAL REPORT CHEST AP PORTABLE SEMIERECT Comparison exam: 08/15/2020 History provided: Pleural effusion Heart size normal. Right subclavian pacemaker. Small bilateral pleural effusions persist with associated atelectatic change. Vascularity within normal limits. Signed: Buddy George Verified Date/Time: 08/16/2020 07:29:39 Reading Location: [facility] Radiology ReadingRoom BASIC METABOLIC [id number] 05:34:00 Test Item Value Reference Range Interpretation Comments SODIUM (BEAKER) (test 137 meq/L 135-148 code = 381) POTASSIUM (BEAKER) 4.0 meq/L 3.6-5.5 Specimen moderately (test code = 379) hemolyzed CHLORIDE (BEAKER) 98 meq/L 98-106 (test code = 382) CO2 (BEAKER) (test 20 meq/L 20-29 code = 355) BLOOD UREA NITROGEN 59 mg/dL 10-26 H (BEAKER) (test code = 354) CREATININE (BEAKER) 7.71 mg/dL 0.50-1.20 H Specimen moderately (test code = 358) hemolyzed GLUCOSE RANDOM 140 mg/dL 70-110 H (BEAKER) (test code = 652) CALCIUM (BEAKER) 9.8 mg/dL 8.5-10.5 (test code = 697) EGFR (BEAKER) (test INSUFFIC IENT CLINICAL code = 1092) DATA TO CALCULA TE ESTIMATED GFR. Asphalt Blender ID - [id number] ID - [id number] ID - [id number] ID - [id number] ID - [id number] ID - [id number] ID - [id number] ID - [id number] ID - [id number] ID -[id number] 05:34:00 Test Item Value Reference Range Interpretation Comments ALBUMIN (BEAKER) 2.9 g/dL 3.5-5.0 L Specimen mo derately (test code = 1145) hemolyzed Asphalt Blender ID - [id number] ID - [id number] ID - [id number] ID - [id number] 05:33:00 Test Item Value Reference Range Interpretation Comments MAGNESIUM (BEAKER) 2.6 mg/dL 1.5-3.0 Specimen moderately (test code = 627) hemolyzed Asphalt Blender ID - [id number] 05:30:00 Test Item Value Reference Range Interpretation Comments PHOSPHORUS (BEAKER) 5.8 mg/dL 2.5-4.5 H Specimen moderately (test code = 604) hemolyzed Asphalt Blender ID - [id number] W/PLT COUNT & AUTO [id number] 05:10:00 Test Item Value Reference Range Interpretation Comments WHITE BLOOD CELL COUNT (BEAKER) 10.4 K/ L 4.0-10.0 H (test code = 775) RED BLOOD CELL COUNT (BEAKER) 4.13 M/ L 4.20-5.80 L (test code = 761) HEMOGLOBIN (BEAKER) (test code = 11.5 GM/DL 13.0-16.8 L 410) HEMATOCRIT (BEAKER) (test code = 36.8 % 36.0-50.0 411) MEAN CORPUSCULAR VOLUME (BEAKER) 89.1 fL 82.0-99.0 (test code = 753) MEAN CORPUSCULAR HEMOGLOBIN 27.8 pg 27.0-33.0 (BEAKER) (test code = 751) MEAN CORPUSCULAR HEMOGLOBIN CONC 31.3 GM/DL 32.0-36.0 L (BEAKER) (test code = 752) RED CELL DISTRIBUTION WIDTH 17.6 % 12.0-15.0 H (BEAKER) (test code = 412) PLATELET COUNT (BEAKER) (test 212 K/CU MM 150-430 code = 756) MEAN PLATELET VOLUME (BEAKER) 10.2 fL 6.0-11.5 (test code = 754) NUCLEATED RED BLOOD CELLS 0 /100 WBC 0-0 (BEAKER) (test code = 413) NEUTROPHILS RELATIVE PERCENT 67 % (BEAKER) (test code = 429) LYMPHOCYTES RELATIVE PERCENT 14 % (BEAKER) (test code = 430) MONOCYTES RELATIVE PERCENT 12 % (BEAKER) (test code = 431) EOSINOPHILS RELATIVE PERCENT 6 % (BEAKER) (test code = 432) BASOPHILS RELATIVE PERCENT 1 % (BEAKER) (test code = 437) NEUTROPHILS ABSOLUTE COUNT 7.03 K/ L 1.80-8.00 (BEAKER) (test code = 670) LYMPHOCYTES ABSOLUTE COUNT 1.46 K/ L 1.48-4.50 L (BEAKER) (test code = 414) MONOCYTES ABSOLUTE COUNT (BEAKER) 1.24 K/ L 0.00-1.30 (test code = 415) EOSINOPHILS ABSOLUTE COUNT 0.60 K/ L 0.00-0.50 H (BEAKER) (test code = 416) BASOPHILS ABSOLUTE COUNT (BEAKER) 0.06 K/ L 0.00-0.20 (test code = 417) IMMATURE GRANULOCYTES-RELATIVE 0 % 0-0 PERCENT (BEAKER) (test code = 2801) U/S, [id number] 14:00:00Laterality?->RightReason for exam:- >Rigth pleural effusionLabs to be Ordered:->No Labs Needed [facility] 1935 Sex: MFINAL REPORT ULTRASOUND GUIDED RIGHT THORACENTESIS History provided: Pleural effusion PROCEDURE: Written informed consent was obtained. The chest was examined with ultrasound and a suitable site for thoracentesis was identified in the right hemithorax. The skin over this area was prepped and draped in sterile fashion. Lidocaine 2% was used for local anesthesia. With ultrasound guidance, the pleural space was accessed with a one-stick 5 Urdu sheathed needle. Approximately 450 cc of bloody fluid was aspirated. The catheter was removed and a sterile dressing was applied. The patient tolerated the procedure well without apparent complications. The fluid was submitted to the laboratory as requested. IMPRESSION: Uneventful ultrasound guided thoracentesis. The fluid wasbloody Signed: Buddy George Verified Date/Time: 08/15/2020 14:00:53 Reading Location: [facility] Radiology Reading Room RAD, CHEST, 1 VIEW, NON [id number] 13:57:00Reason for exam:->post thoraShould this be performed at the bedside?->Yes [facility] : 1935 Sex: MFINAL REPORT Chest AP portable semierect Comparison exam: 08/15/2020 at 0502 hours History provided: Status post right thoracentesis Diminished volume of pleural fluid on the right. No pneumothorax. Signed: Buddy George Verified Date/Time: 08/15/2020 13:57:52 Reading Location: [facility] Radiology Reading Room RAD, CHEST, 1 VIEW, NON [id number] 07:55:00Reason for exam:->Pleural effusionShould this be performed at the bedside?->Yes [facility] 1935 Sex: MFINAL REPORT Chest AP portable semierect Comparison exam: 08/14/2020 History provided: Pleural effusion Heart size normal. Moderate bilateral pleural effusions are unchanged. Normal pulmonary vascularity. Signed: Buddy [facility]eps[facility] Verified Date/Time: 08/15/2020 07:55:05 Reading Location: [facility] Radiology Reading Room Electronically signed by: BUDDY GEORGE on 07:55 AMBASIC METABOLIC [id number] 04:22:00 Test Item Value Reference Range Interpretation Comments SODIUM (BEAKER) (test 137 meq/L 135-148 code = 381) POTASSIUM (BEAKER) 3.6 meq/L 3.6-5.5 (test code = 379) CHLORIDE (BEAKER) 98 meq/L 98-106 (test code = 382) CO2 (BEAKER) (test 25 meq/L 20-29 code = 355) BLOOD UREA NITROGEN 46 mg/dL 10-26 H (BEAKER) (test code = 354) CREATININE (BEAKER) 5.69 mg/dL 0.50-1.20 H (test code = 358) GLUCOSE RANDOM 135 mg/dL 70-110 H (BEAKER) (test code = 652) CALCIUM (BEAKER) 9.6 mg/dL 8.5-10.5 (test code = 697) EGFR (BEAKER) (test INSUFFIC IENT CLINICAL code = 1092) DATA TO CALCULA TE ESTIMATED GFR. Asphalt Blender ID - [id number] ID - [id number] ID - [id number] ID - [id number] ID - [id number] ID - [id number] ID - [id number] ID - [id number] ID - [id number] ID - [id number] 04:16:00 Test Item Value Reference Range Interpretation Comments MAGNESIUM (BEAKER) (test code = 2.5 mg/dL 1.5-3.0 627) Asphalt Blender ID - [id number] 04:14:00 Test Item Value Reference Range Interpretation Comments ALBUMIN (BEAKER) (test code = 1145) 2.9 g/dL 3.5-5.0 L Asphalt Blender ID - [id number] ID - [id number] ID - [id number] ID - [id number] 04:13:00 Test Item Value Reference Range Interpretation Comments PHOSPHORUS (BEAKER) (test code = 5.3 mg/dL 2.5-4.5 H 604) Asphalt Blender ID - [id number] W/PLT COUNT & AUTO [id number] 03:56:00 Test Item Value Reference Range Interpretation Comments WHITE BLOOD CELL COUNT (BEAKER) 10.8 K/ L 4.0-10.0 H (test code = 775) RED BLOOD CELL COUNT (BEAKER) 3.89 M/ L 4.20-5.80 L (test code = 761) HEMOGLOBIN (BEAKER) (test code = 10.7 GM/DL 13.0-16.8 L 410) HEMATOCRIT (BEAKER) (test code = 34.8 % 36.0-50.0 L 411) MEAN CORPUSCULAR VOLUME (BEAKER) 89.5 fL 82.0-99.0 (test code = 753) MEAN CORPUSCULAR HEMOGLOBIN 27.5 pg 27.0-33.0 (BEAKER) (test code = 751) MEAN CORPUSCULAR HEMOGLOBIN CONC 30.7 GM/DL 32.0-36.0 L (BEAKER) (test code = 752) RED CELL DISTRIBUTION WIDTH 17.9 % 12.0-15.0 H (BEAKER) (test code = 412) PLATELET COUNT (BEAKER) (test 204 K/CU MM 150-430 code = 756) MEAN PLATELET VOLUME (BEAKER) 9.4 fL 6.0-11.5 (test code = 754) NUCLEATED RED BLOOD CELLS 0 /100 WBC 0-0 (BEAKER) (test code = 413) NEUTROPHILS RELATIVE PERCENT 66 % (BEAKER) (test code = 429) LYMPHOCYTES RELATIVE PERCENT 15 % (BEAKER) (test code = 430) MONOCYTES RELATIVE PERCENT 11 % (BEAKER) (test code = 431) EOSINOPHILS RELATIVE PERCENT 7 % (BEAKER) (test code = 432) BASOPHILS RELATIVE PERCENT 1 % (BEAKER) (test code = 437) NEUTROPHILS ABSOLUTE COUNT 7.09 K/ L 1.80-8.00 (BEAKER) (test code = 670) LYMPHOCYTES ABSOLUTE COUNT 1.66 K/ L 1.48-4.50 (BEAKER) (test code = 414) MONOCYTES ABSOLUTE COUNT (BEAKER) 1.20 K/ L 0.00-1.30 (test code = 415) EOSINOPHILS ABSOLUTE COUNT 0.70 K/ L 0.00-0.50 H (BEAKER) (test code = 416) BASOPHILS ABSOLUTE COUNT (BEAKER) 0.07 K/ L 0.00-0.20 (test code = 417) IMMATURE GRANULOCYTES-RELATIVE 0 % 0-0 PERCENT (BEAKER) (test code = 2801) HEMOGLOBIN [id number] 21:06:00 Test Item Value Reference Range Interpretation Comments HEMOGLOBIN A1C (BEAKER) (test code = 5.6 % 4.3-6.1 368) Asphalt Blender ID - [id number] B CORE ANTIBODY, [id number] 11:02:00 Test Item Value Reference Range Interpretation Comments HEPATITIS B CORE TOTAL ANTIBODY Nonreactive Nonreactive (BEAKER) (test code = 497) Asphalt Blender ID - SPEEDY MRAD, CHEST, 1 VIEW, NON [id number] 07:26:00Reason for exam:->Pleural effusionShould this be performed at the bedside?->Yes [facility] 1935 Sex: MFINAL REPORT Chest AP portable Comparison exam: 08/13/2020 History provided: Follow-up pleural effusion Heart size magnified by projection. Multilead right subclavian pacemaker. Moderate pleural effusion persists on the right with smaller effusion on the left. Pulmonary vascularity within normal limits. Signed: Buddy George MDReport Verified Date/Time: 08/14/2020 07:26:17 Reading Location: [facility] Radiology Reading Room BASIC METABOLIC [id number] 05:59:00 Test Item Value Reference Range Interpretation Comments SODIUM (BEAKER) (test 135 meq/L 135-148 code = 381) POTASSIUM (BEAKER) 4.2 meq/L 3.6-5.5 (test code = 379) CHLORIDE (BEAKER) 98 meq/L 98-106 (test code = 382) CO2 (BEAKER) (test 22 meq/L 20-29 code = 355) BLOOD UREA NITROGEN 68 mg/dL 10-26 H (BEAKER) (test code = 354) CREATININE (BEAKER) 7.40 mg/dL 0.50-1.20 H (test code = 358) GLUCOSE RANDOM 141 mg/dL 70-110 H (BEAKER) (test code = 652) CALCIUM (BEAKER) 9.6 mg/dL 8.5-10.5 (test code = 697) EGFR (BEAKER) (test INSUFFIC IENT CLINICAL code = 1092) DATA TO CALCULA TE ESTIMATED GFR. Asphalt Blender ID - LITOOperator ID - LITOOperator ID - LITOOperator ID - LITOOperator ID - LITOOperator ID - LITOOperator ID - LITOOperator ID - LITOOperator ID - LITOOperator ID - [id number] 05:59:00 Test Item Value Reference Range Interpretation Comments MAGNESIUM (BEAKER) (test code = 2.7 mg/dL 1.5-3.0 627) Asphalt Blender ID - LITOCBC W/PLT COUNT & AUTO [id number] 05:57:00 Test Item Value Reference Range Interpretation Comments WHITE BLOOD CELL COUNT (BEAKER) 11.7 K/ L 4.0-10.0 H (test code = 775) RED BLOOD CELL COUNT (BEAKER) 3.71 M/ L 4.20-5.80 L (test code = 761) HEMOGLOBIN (BEAKER) (test code = 10.3 GM/DL 13.0-16.8 L 410) HEMATOCRIT (BEAKER) (test code = 33.6 % 36.0-50.0 L 411) MEAN CORPUSCULAR VOLUME (BEAKER) 90.6 fL 82.0-99.0 (test code = 753) MEAN CORPUSCULAR HEMOGLOBIN 27.8 pg 27.0-33.0 (BEAKER) (test code = 751) MEAN CORPUSCULAR HEMOGLOBIN CONC 30.7 GM/DL 32.0-36.0 L (BEAKER) (test code = 752) RED CELL DISTRIBUTION WIDTH 17.7 % 12.0-15.0 H (BEAKER) (test code = 412) PLATELET COUNT (BEAKER) (test 223 K/CU MM 150-430 code = 756) MEAN PLATELET VOLUME (BEAKER) 10.1 fL 6.0-11.5 (test code = 754) NUCLEATED RED BLOOD CELLS 0 /100 WBC 0-0 (BEAKER) (test code = 413) NEUTROPHILS RELATIVE PERCENT 70 % (BEAKER) (test code = 429) LYMPHOCYTES RELATIVE PERCENT 13 % (BEAKER) (test code = 430) MONOCYTES RELATIVE PERCENT 9 % (BEAKER) (test code = 431) EOSINOPHILS RELATIVE PERCENT 7 % (BEAKER) (test code = 432) BASOPHILS RELATIVE PERCENT 1 % (BEAKER) (test code = 437) NEUTROPHILS ABSOLUTE COUNT 8.21 K/ L 1.80-8.00 H (BEAKER) (test code = 670) LYMPHOCYTES ABSOLUTE COUNT 1.50 K/ L 1.48-4.50 (BEAKER) (test code = 414) MONOCYTES ABSOLUTE COUNT (BEAKER) 1.03 K/ L 0.00-1.30 (test code = 415) EOSINOPHILS ABSOLUTE COUNT 0.81 K/ L 0.00-0.50 H (BEAKER) (test code = 416) BASOPHILS ABSOLUTE COUNT (BEAKER) 0.09 K/ L 0.00-0.20 (test code = 417) IMMATURE GRANULOCYTES-RELATIVE 0 % 0-0 PERCENT (BEAKER) (test code = 2801) [id number] 05:56:00 Test Item Value Reference Range Interpretation Comments PHOSPHORUS (BEAKER) (test code = 7.1 mg/dL 2.5-4.5 H 604) Asphalt Blender ID - [id number] 05:52:00 Test Item Value Reference Range Interpretation Comments ALBUMIN (BEAKER) (test code = 1145) 2.9 g/dL 3.5-5.0 L Asphalt Blender ID - LITOOperator ID - LITOOperator ID - LITOOperator ID - LITOPOCT- GLUCOSE [id number] 20:34:00 Test Item Value Reference Range Interpretation Comments POC-GLUCOSE METER 132 mg/dL 70-110 H : TESTED A T [facility] 1317 ([facility] (test code [facility], = 1538) [facility] 77 478: Asphalt Blender/Techni patti ID = [id number] for Avil Swathi potter POCT-GLUCOSE [id number] 16:59:00 Test Item Value Reference Range Interpretation Comments POC-GLUCOSE METER 173 mg/dL 70-110 H : Notified RN/MD: TESTED (BEJEROME) (test code AT [facility] [address] = 1538) [place] [id number]: Asphalt Blender/Techni patti ID = [id number] for Osmel h Lorita U/S, [id number] 16:07:00Laterality?->RightReason for exam:- >Right pleural effusionLabs to be Ordered:->Body Fluid Culture (w/Gram Stain, C\T\S)Labs to be Ordered:->CytologyLabs to be Ordered:->Fungal CultureLabs to be Ordered:->Glucose+LDH+ProteinLabs to be Ordered:->Cell CountSALINAS [facility]: [facility] : 1935 Sex: MFINAL REPORT Ultrasound guided right thoracentesis Clinical History: Large right pleural effusion. Modality: Ultrasound. Sedation: None. Senior Bioinformatics Scientist:Kenn Naranjo M.D. Philosophy And Religion Instructor: None. Estimated Blood Loss: 1cc Specimen: 1500 cc of bloody fluid. Technique: Informed consent was obtained. The risks of pain, bleeding, infection, lung collapse/pneumothorax, injury to adjacent structures, and adverse medication reactions were discussed with the patient. The patient's right hemithorax was scanned from the back, with the patient left lateral decubitus. After the largest fluid pocket area was marked, the skin was prepped and draped in the usualsterile manner. The area was anesthetized with 1% lidocaine, a 5 F one-step catheter was advanced in to the pleural space under ultrasound guidance. After completion of drainage, the catheter was removed. There was no evidence of immediate complication. Post procedure chest x-ray is pending. Patient disposition: Patient was discharged from the ultrasound department after the thoracentesis in goodcondition. Impression:Successful and uncomplicated ultrasound guided right thoracentesis. Residual moderate effusion noted. Repeat thoracentesis can be performed in 24 to 48 hours if clinically indicated. Signed: Kenn Naranjo MDReport Verified Date/Time: 08/13/2020 16:07:12 Reading Location: [facility] Radiology Reading Room TITIS B SURFACE [id number] 14:53:00 Test Item Value Reference Range Interpretation Comments HEPATITIS B SURFACE ANTIGEN (2) Nonreactive Nonreactive (BEAKER) (test code = 2585) Asphalt Blender ID - [id number] FLUID CELL COUNT WITH [id number] 14:27:00 Test Item Value Reference Range Interpretation Comments APPEARANCE FLUID Cloudy Clear A (BEAKER) (test code = 510) COLOR FLUID Brown Colorless, Straw A (BEAKER) (test code = 511) RBC FLUID (BEAKER) 772668 /cu mm See_Comment H [Automa elizabeth (test code = 513) message] T he system which generated this result transmitted reference range : <=1. The reference range was not used to interpret this result as normal/abnormal . ADJUSTED WBC FLUID 2120 /cu mm See_Comment H [Automat ed (BEAKER) (test message] The code = 1691) system which generated this result transmitted reference range : <=5. The reference range was not used to interpret this result as normal/abnormal . LINING CELLS 0 /cu mm See_Comment [Automated (BEAKER) (test message] The code = 1590) system which generated this result transmitted reference range : <=1. The reference range was not used to interpret this result as normal/abnormal . NEUTROPHILS FLUID 10 % (BEAKER) (test code = 1656) LYMPHS FLUID 19 % (BEAKER) (test code = 488) MONO/MACROPHAGE 38 % FLUID (BEAKER) (test code = 489) EOSINOPHILS FLUID 30 % (BEAKER) (test code = 491) BASO FLUID 3 % (BEAKER) (test code = 492) INTERPRETATION-210 Abundant (BEAKER) (test eosinophils. Agree code = 2619) with the above differential count. [id number] Raquel Connelly, 10 (BEAKER) (test M.D. (electronic code = 2620) signature) CONTAINER BODY EDTA Tube FLUID (BEAKER) (test code = 2873) LACTATE DEHYDROGENASE (LDH), BODY [id number] 13:16:00 Test Item Value Reference Range Interpretation Comments LACTATE DEHYDROGENASE FLUID (BEAKER) 607 U/L (test code = 634) Absence of reference range indicates that normals have not been defined.Assay performance has not been validated for this type of specimen.Asphalt Blender ID - [id number], BODY [id number] 13:13:00 Test Item Value Reference Range Interpretation Comments PROTEIN FLUID (BEAKER) (test code = 4.5 g/dL 579) Absence of reference range indicates that normals have not been defined.Assay performance has not been validated for this type of specimen.Asphalt Blender ID - [id number], BODY [id number] 13:12:00 Test Item Value Reference Range Interpretation Comments GLUCOSE, BODY FLUID (BEAKER) (test 164 mg/dL code = 1528) Absence of reference range indicates that normals have not been defined.Assay performance has not been validated for this type of specimen.Asphalt Blender ID - [id number], CHEST, 1 VIEW, NON [id number] 13:06:00Reason for exam:->post thoracentesisShould this be performed at the bedside?->Yes [facility] 1935 Sex: MFINAL REPORT RAD, CHEST, 1 VIEW, NON DEPT INDICATION: post thoracentesis COMPARISON: 4 hours prior FINDINGS: Portable frontal view of the chest. IMPRESSION: Support Lines: None Lungs and pleura: Marked improvement in right effusion following thoracentesis. No postprocedural pneumothorax.Heart and mediastinum: Stable contours. Stable valvular surgical changes.Additional findings: None. Signed: JR Quiles Robert MDReport Verified Date/Time: 08/13/2020 13:06:22 Reading Location: [facility] Radiology Reading Room POCT- GLUCOSE [id number] 12:22:00 Test Item Value Reference Range Interpretation Comments POC-GLUCOSE METER 188 mg/dL 70-110 H : Notified RN/MD: TESTED (BEAKER) (test code AT [place] [address] [place] = 1538) [facility] [address]: Asphalt Blender/Techni patti ID = [id number] for Osmel h, Lorita PROTHROMBIN TIME/[id number] 09:55:00 Test Item Value Reference Range Interpretation Comments PROTIME (BEAKER) 11.0 seconds 9.3-12.0 Final Infor mation (test code = 759) (Auto Outp ut) INR (BEAKER) (test 0.99 See_Comment Final Inf ormation code = 370) (Auto Output) [Automated mess age] The system T[employer]ly generated this result transmitted ref erence range: <=5.90. The reference range was not used to int erpret this result as normal/abnormal . RECOMMENDED COUMADIN/WARFARIN INR THERAPY RANGESSTANDARD DOSE: 2.0 - 3.0 Includes: PROPHYLAXIS forvenous thrombosis, systemic embolization; TREATMENT for venous thrombosis and/or pulmonary embolus.HIGH RISK: Target INR is 2.5-3.5 for patients with mechanical heart valves.SARS-COV2/INFLUENZA/RSV [id number] 09:41:00 Test Item Value Reference Range Interpretation Comments SARS-COV2/RT-PCR Negative Negative (test code = 3116802) INFLUENZA A RT-PCR Negative Negative (test code = 6779347) INFLUENZA B RT-PCR Negative Negative (test code = 0652029) RSV RT-PCR (test Negative Negative Performanc e of the Xpert code = 2101504) Xpress SARS- CoV-2/Flu/RSV test has only b een established in nasopharyngeal swab specimens. Use of the Xpert Xpress SARS-CoV-2/Flu/ RSV test with other spec imen types has not been as sessed and performance characteristics are unknown. As wi th any molecular test, mutations within the targ eted genetic regions identified by Xpert Xpress SARS-CoV -2/Flu/RSV test could affe ct primer and/or probe bi nding resulting in fa ilure to detect the pres ence of virus or the vi alyse being detected less predictably.Neg ative results do not preclude SARS-CoV-2, Inf luenza A/B, or RSV inf ection and should not be u sed as the sole basis for treatment or other patien t management deci sions. Results from e Xpert Xpress SARS-CoV -2/Flu/RSV test should be correlated with the clinic al history, epidem iological data, and other data available to th e clinician evalu ating the patient. Inval id test results may occ ur from improper specim en collection; chinmay lure to follow the jessica mmended sample collecti on, handling, and s torage procedures; deanna hnical error. False ne gative results may occ ur if virus is presen t at levels below th e analytical limi t of detection (LOD: 131 copies/mL). Vi ral nucleic acid ma y persist in vivo, indepe ndent of virus viability . Detection of an alyte target(s) does not imply that the corres ponding virus(es) are i nfectious or are the caus ative agents for clin ical symptoms. Rece nt patient exposure to Flu Mist or other live atte nuated influenza vacci kristen may cause inaccurat e positive results.This te st has been authorized by FDA under an EUA fo r use by authorized labo ratories. This test is on ly authorized for the duration of the declaration yudelka t circumstances e xist justifying the authorization o f emergency use o f in vitro diagnostic test s for detection and/o r diagnosis of CO VID-19 under Section 5 64(b)(1) of the Federal Food, Drug and Cosmetic Ac t, 21 U.S.C. 360bbb -3(b)(1), unless the auth orization is terminated o r revoked sooner.Fact She et for Healthcare Prov iders: [email or web address]://[email or web address]/D ocuments/Xpert% 20Xpress%2 9OFTL-HzU-9-Flu -RSV/302-4 508%20Rev.%20B% 20HCP%20Fa ct%20Sheet.pdfF act Sheet for Healthcare Patients: [email or web address]://www.[email or web address]/D ocuments/Xpert% 20Xpress%2 5OWLR-YnF-9-Flu -RSV/302-4 507%20Rev.%20B% 20Patient% 20Fact%20Sheet. pdf [id number] 09:34:00 Test Item Value Reference Range Interpretation Comments D-DIMER QUANTITATIVE 10.27 MG/L FEU <0.50 H Final Information (BEAKER) (test code = (Auto Output) 767) REGARDING D-DIMER RESULTS: The 98% NPV (Negative Predictive Value) for DVT/PE exclusion is 0.50 mg/LFEU as suggested by the die sizer and as approved by the FDA.PT/[id number] 09:33:00 Test Item Value Reference Range Interpretation Comments PROTIME (BEAKER) (test 11.1 seconds 9.3-12.0 Final Information code = 759) (Auto Output) INR (BEAKER) (test 1.00 See_Comment Final Inf ormation code = 370) (Auto Output) [Automated mess age] The system T[employer] generated this result transmit elizabeth reference range : <=5.90. The reference range was not used to interpret this result as normal/abnormal . PARTIAL THROMBOPLASTIN 27.4 seconds 23.0-35.0 Final Information TIME (BEAKER) (test (Auto Ou tput) code = 760) RECOMMENDED COUMADIN/WARFARIN INR THERAPY RANGESSTANDARD DOSE: 2.0 - 3.0 Includes: PROPHYLAXIS forvenous thrombosis, systemic embolization; TREATMENT for venous thrombosis and/or pulmonary embolus.HIGH RISK: Target INR is 2.5-3.5 for patients with mechanical heart valves.B-TYPE NATRIURETIC FACTOR (BNP)2020-08-13 09:16:00 Test Item Value Reference Range Interpretation Comments B-TYPE NATRIURETIC PEPTIDE 1072 pg/mL 0-100 H (BEAKER) (test code = 700) Asphalt Blender ID - [id number], CHEST, 1 VIEW, NON [id number] 08:27:00Reason for exam:->Pleural effusionShould this be performed at the bedside?->Yes [facility] 1935 Sex: MFINAL REPORT RAD, CHEST, 1 VIEW, NON DEPT INDICATION: Pleural effusion COMPARISON: None FINDINGS: Portable frontal view of the chest. IMPRESSION: Support Lines: None Lungs and pleura: Large right effusion with associated subsegmental atelectasis. No pneumothorax.Heart and mediastinum: Enlarged cardiac silhouette. Remote valvular surgical changes.Additional findings: None. Signed: JR Quiles Robert MDReport Verified Date/Time: 08/13/2020 08:27:00 Reading Location: [facility] Radiology Reading Room POCT- GLUCOSE [id number] 08:01:00 Test Item Value Reference Range Interpretation Comments POC-GLUCOSE METER 144 mg/dL 70-110 H : Notified RN/MD: TESTED (GISELLEAKER) (test code AT [address] POINT = 1538) [facility] [address]: Asphalt Blender/Techni patti ID = [id number] for Osmel h, Lorita CT, CHEST, WITHOUT [id number] 06:54:00Unlisted Reason for Exam - Click Yes and Enter Reason Below->No [facility] : 1935 Sex: MFINAL REPORT EXAM: CT of the chest, without contrast CLINICAL HISTORY: Pleural effusion Technique: CT of the chest was performed without intravenous contrast administration. This exam was performed according to our departmental dose optimization program which includes automated exposure control, adjustment of the mA and/or kV according to patient's size and/or use of iterative reconstructive technique. COMPARISON: None FINDINGS: LOWER NECK: Within normal limits.AIRWAYS AND LUNGS: Patent central tracheobronchial tree. Moderate to large right and small left loculated pleural effusions. Near- complete atelectasis in the right lower lobe. Partial atelectasis in the right middle and right upper lobes. Two left lower lobe opacities consistent with round atelectasis. Calcified granuloma in the right lower lobe.VESSELS: Atherosclerotic calcifications of the aorta and coronary arteries. No thoracic aortic aneurysm.HEART: Status post TAVR. Mild cardiomegaly. Pacemaker leads overlying the right atrium and right ventricle. Dense calcifications of the mitral valve annulus. Nopericardial effusion.NICOLÁS AND MEDIASTINUM: Within normal limits.VISUALIZED UPPER ABDOMEN: Within normal limits.SOFT TISSUES: Right upper anterior chest wall pacemaker.BONES: Generalized osteopenia. Multilevel degenerative changes of the visualized spine with fibrotic and osteophytes. Mild thoracic dextrocurvature. IMPRESSION: Moderate to large right and small left loculated pleural effusions with associated compressive atelectasis. Left lower lobe round atelectasis.Mild cardiomegaly. Signed: [facility] Verified Date/Time: 08/13/2020 06:54:56 [id number] 06:20:00 Test Item Value Reference Range Interpretation Comments MAGNESIUM (BEAKER) (test code = 2.5 mg/dL 1.5-3.0 627) Asphalt Blender ID - [id number] ID - [id number] ID - [id number] ID - [id number] COMPREHENSIVE METABOLIC [id number] 06:20:00 Test Item Value Reference Range Interpretation Comments TOTAL PROTEIN 7.3 gm/dL 6.0-8.5 (BEAKER) (test code = 770) ALBUMIN (BEAKER) 2.9 g/dL 3.5-5.0 L (test code = 1145) ALKALINE PHOSPHATASE 93 U/L 30-115 (BEAKER) (test code = 346) BILIRUBIN TOTAL 0.4 mg/dL 0.1-1.2 (BEAKER) (test code = 377) SODIUM (BEAKER) (test 135 meq/L 135-148 code = 381) POTASSIUM (BEAKER) 4.7 meq/L 3.6-5.5 (test code = 379) CHLORIDE (BEAKER) 98 meq/L 98-106 (test code = 382) CO2 (BEAKER) (test 22 meq/L 20-29 code = 355) BLOOD UREA NITROGEN 50 mg/dL 10-26 H (BEAKER) (test code = 354) CREATININE (BEAKER) 6.16 mg/dL 0.50-1.20 H (test code = 358) GLUCOSE RANDOM 180 mg/dL 70-110 H (BEAKER) (test code = 652) CALCIUM (BEAKER) 10.0 mg/dL 8.5-10.5 (test code = 697) AST (SGOT) (BEAKER) 18 U/L 5-40 (test code = 353) ALT (SGPT) (BEAKER) 12 U/L 5-50 (test code = 347) EGFR (BEAKER) (test INSUFFIC IENT CLINICAL code = 1092) DATA TO CALCULA TE ESTIMATED GFR. Asphalt Blender ID - [id number] ID - [id number] ID - [id number] ID - [id number] ID - HBWX85Zglxpepo ID - ZLFS50Mtrtgajl ID - EIMI43Vrcucrcs ID - ZJXW09Stisujkc ID - PYIU65Sqwzdajp ID - QTUU22Vvvtyekd ID - YLUJ95Ovzxojgu ID - QSAW12Qnnmifqt ID - OSDM24Wsgbnjzv ID - SMCV67Egmtmode ID - HZXS85Hwhataur ID - [id number] 06:16:00 Test Item Value Reference Range Interpretation Comments PHOSPHORUS (BEAKER) (test code = 7.1 mg/dL 2.5-4.5 H 604) Asphalt Blender ID - [id number] W/PLT COUNT & AUTO [id number] 06:10:00 Test Item Value Reference Range Interpretation Comments WHITE BLOOD CELL COUNT (BEAKER) 8.4 K/ L 4.0-10.0 (test code = 775) RED BLOOD CELL COUNT (BEAKER) 3.82 M/ L 4.20-5.80 L (test code = 761) HEMOGLOBIN (BEAKER) (test code = 10.6 GM/DL 13.0-16.8 L 410) HEMATOCRIT (BEAKER) (test code = 34.6 % 36.0-50.0 L 411) MEAN CORPUSCULAR VOLUME (BEAKER) 90.6 fL 82.0-99.0 (test code = 753) MEAN CORPUSCULAR HEMOGLOBIN 27.7 pg 27.0-33.0 (BEAKER) (test code = 751) MEAN CORPUSCULAR HEMOGLOBIN CONC 30.6 GM/DL 32.0-36.0 L (BEAKER) (test code = 752) RED CELL DISTRIBUTION WIDTH 17.5 % 12.0-15.0 H (BEAKER) (test code = 412) PLATELET COUNT (BEAKER) (test 217 K/CU MM 150-430 code = 756) MEAN PLATELET VOLUME (BEAKER) 10.0 fL 6.0-11.5 (test code = 754) NUCLEATED RED BLOOD CELLS 0 /100 WBC 0-0 (BEAKER) (test code = 413) NEUTROPHILS RELATIVE PERCENT 81 % (BEAKER) (test code = 429) LYMPHOCYTES RELATIVE PERCENT 9 % (BEAKER) (test code = 430) MONOCYTES RELATIVE PERCENT 10 % (BEAKER) (test code = 431) EOSINOPHILS RELATIVE PERCENT 0 % (BEAKER) (test code = 432) BASOPHILS RELATIVE PERCENT 0 % (BEAKER) (test code = 437) NEUTROPHILS ABSOLUTE COUNT 6.81 K/ L 1.80-8.00 (BEAKER) (test code = 670) LYMPHOCYTES ABSOLUTE COUNT 0.74 K/ L 1.48-4.50 L (BEAKER) (test code = 414) MONOCYTES ABSOLUTE COUNT (BEAKER) 0.81 K/ L 0.00-1.30 (test code = 415) EOSINOPHILS ABSOLUTE COUNT 0.01 K/ L 0.00-0.50 (BEAKER) (test code = 416) BASOPHILS ABSOLUTE COUNT (BEAKER) 0.01 K/ L 0.00-0.20 (test code = 417) IMMATURE GRANULOCYTES-RELATIVE 0 % 0-0 PERCENT (BEAKER) (test code = 2801) POCT-GLUCOSE [id number] 21:06:00 Test Item Value Reference Range Interpretation Comments POC-GLUCOSE METER 200 mg/dL 70-110 H : TESTED A T [facility] [address] (BEAKER) (test code [address], = 1538) [facility] [address]: Asphalt Blender/Techni patti ID = [id number] for Geeta Meek [id number] 11:44:00 Test Item Value Reference Range Interpretation Comments GLUBED (test code = 145 MG/DL 70-110 H Performe d by certified GLUBED) 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 [facility] AB HEPATITIS B [id number] 09:13:00 Test Item Value Reference Range Interpretation Comments AB HEPATITIS B CORE Negative Negative Performe d At: HD (test code = HBCAB) [facility] [id number] [facility], [place] [id number] yael Landry MD Ph:[phone] CBC W/AUTO [id number] 08:44:00 Test Item Value Reference Range Interpretation [...] (test code NO = MDIFF) BASIC METABOLIC [id number] 08:18:00 Test Item Value Reference Range Interpretation [...] 10.2 mg/dL 8.0-10.5 N CA) CBC W/AUTO [id number] 07:39:00 Test Item Value Reference Range Interpretation [...] MANUAL DIFF REQUIRED (test code = MDIFF) [id number] 22:28:00 Test Item Value Reference Range Interpretation Comments GLUBED (test code = 177 MG/DL 70-110 H Performe d by certified GLUBED) 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 [facility] [id number] 18:20:00 Test Item Value Reference Range Interpretation Comments GLUBED (test code = 156 MG/DL 70-110 H Performe d by certified GLUBED) 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 [facility] [id number] 12:15:00 Test Item Value Reference Range Interpretation Comments GLUBED (test code = 194 MG/DL 70-110 H Performe d by certified GLUBED) 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 [facility] [id number] 07:42:00 Test Item Value Reference Range Interpretation Comments GLUBED (test code = 123 MG/DL 70-110 H Performe d by certified GLUBED) 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 [facility] [id number] 00:18:00 Test Item Value Reference Range Interpretation Comments GLUBED (test code = 184 MG/DL 70-110 H Performe d by certified GLUBED) 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 [facility] [id number] 20:10:00 Test Item Value Reference Range Interpretation Comments GLUBED (test code = 165 MG/DL 70-110 H Performe d by certified GLUBED) 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 [facility] COVID 19 Asymptomatic IH [id number] 19:37:00 Test Item Value Reference Range Interpretation [...] perform moderate, high or waivedcomplexit y tests. [id number] 18:39:00 Test Item Value Reference Range Interpretation Comments GLUBED (test code = 131 MG/DL 70-110 H Performe d by certified GLUBED) 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 [facility] [id number] 12:35:00 Test Item Value Reference Range Interpretation Comments GLUBED (test code = 147 MG/DL 70-110 H Performe d by certified GLUBED) 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 [facility] [id number] 06:02:00 Test Item Value Reference Range Interpretation Comments GLUBED (test code = 120 MG/DL 70-110 H Performe d by certified GLUBED) 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 [facility] BASIC METABOLIC [id number] 04:22:00 Test Item Value Reference Range Interpretation [...] code = 9.9 mg/dL 8.0-10.5 N CA) [id number] 04:22:00 Test Item Value Reference Range Interpretation Comments PHOSPHOROUS (test code = PHOS) 3.7 MG/DL 2.5-4.9 N [id number] 04:09:00 Test Item Value Reference Range Interpretation Comments GLUBED (test code = 122 MG/DL 70-110 H Performe d by certified GLUBED) 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 [facility] CBC W/AUTO [id number] 04:05:00 Test Item Value Reference Range Interpretation [...] DIFF REQUIRED (test code NO = MDIFF) [id number] 18:00:00 Test Item Value Reference Range Interpretation Comments GLUBED (test code = 134 MG/DL 70-110 H Performe d by certified GLUBED) 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 [facility] [id number] 16:40:00 Test Item Value Reference Range Interpretation Comments GLUBED (test code = 112 MG/DL 70-110 H Performe d by certified GLUBED) 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 [facility] [id number] 12:38:00 Test Item Value Reference Range Interpretation Comments GLUBED (test code = 165 MG/DL 70-110 H Performe d by certified GLUBED) 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 [facility] [id number] 06:22:00 Test Item Value Reference Range Interpretation Comments GLUBED (test code = 111 MG/DL 70-110 H Performe d by certified GLUBED) 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 [facility] [id number] 05:16:00 Test Item Value Reference Range Interpretation Comments MAGNESIUM (test code = MAG) 1.87 mg/dL 1.80-2.40 N BASIC METABOLIC [id number] 04:52:00 Test Item Value Reference Range Interpretation [...] 10.9 mg/dL 8.0-10.5 H CA) CBC W/AUTO [id number] 04:48:00 Test Item Value Reference Range Interpretation [...] (test code NO = MDIFF) CBC W/AUTO [id number] 04:43:00 Test Item Value Reference Range Interpretation [...] MANUAL DIFF REQUIRED (test code = MDIFF) [id number] 03:58:00 Test Item Value Reference Range Interpretation Comments GLUBED (test code = 147 MG/DL 70-110 H Performe d by certified GLUBED) 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 [facility] [id number] 16:28:00 Test Item Value Reference Range Interpretation Comments GLUBED (test code = 141 MG/DL 70-110 H Performe d by certified GLUBED) 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 [facility] [id number] 12:52:00 Test Item Value Reference Range Interpretation Comments GLUBED (test code = 133 MG/DL 70-110 H Performe d by certified GLUBED) 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 [facility] [id number] 08:35:00 Test Item Value Reference Range Interpretation Comments GLUBED (test code = 116 MG/DL 70-110 H Performe d by certified GLUBED) 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 [facility] ACUTE HEPATITIS [id number] 06:11:00 Test Item Value Reference Range Interpretation [...] COMMENTS: At start of hemodialysisAB HEPATITIS B [id number] 06:11:00 Test Item Value Reference Range Interpretation Comments AB HEPATITIS B 3.2 mIU/mL See_Comment L Status of I mmunity SURFACE (test code = HBSAB) Anti-HBs Level --- I nconsis tent with Immun ity 0 .0 - 9.9Consistent w ith Immunity >9.9Performed A t: HD [facility] [address] [facility], [place] [id number] chitoaletha Landry MD Ph:[phone] [Automated mess age] The system [employer] generated this result transmitted ref erence range: Immunity >9.9. The reference r lydia was not used to interpret this result as normal/abnor mal. COMMENTS: At start of hemodialysisBASIC METABOLIC [id number] 05:20:00 Test Item Value Reference Range Interpretation [...] code = 9.6 mg/dL 8.0-10.5 N CA) [id number] 05:20:00 Test Item Value Reference Range Interpretation Comments MAGNESIUM (test code = MAG) 1.83 mg/dL 1.80-2.40 CBC W/AUTO [id number] 05:01:00 Test Item Value Reference Range Interpretation [...] DIFF REQUIRED (test code NO = MDIFF) [id number] 20:34:00 Test Item Value Reference Range Interpretation Comments GLUBED (test code = 127 MG/DL 70-110 H Performe d by certified GLUBED) 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 [facility] [id number] 16:21:00 Test Item Value Reference Range Interpretation Comments GLUBED (test code = 192 MG/DL 70-110 H Performe d by certified GLUBED) 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 [facility] [id number] 14:46:00 Test Item Value Reference Range Interpretation Comments GLUBED (test code = 177 MG/DL 70-110 H Performe d by certified GLUBED) 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 [facility] ACUTE HEPATITIS [id number] 11:40:00 Test Item Value Reference Range Interpretation [...] COMMENTS: At start of hemodialysisAB HEPATITIS B [id number] 11:40:00 Test Item Value Reference Range Interpretation Comments AB HEPATITIS B SURFACE (test code = HBSAB) COMMENTS: At start of hemodialysisCBC W/AUTO [id number] 08:37:00 Test Item Value Reference Range Interpretation [...] (test code NO = MDIFF) BASIC METABOLIC [id number] 08:00:00 Test Item Value Reference Range Interpretation [...] code = 11.3 mg/dL 8.0-10.5 H CA) [id number] 08:00:00 Test Item Value Reference Range Interpretation Comments MAGNESIUM (test code = MAG) 2.27 mg/dL 1.80-2.40 N [id number] 07:05:00 Test Item Value Reference Range Interpretation Comments GLUBED (test code = 134 MG/DL 70-110 H Performe d by certified GLUBED) 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 [facility] [id number] 18:16:00 Test Item Value Reference Range Interpretation Comments GLUBED (test code = 118 MG/DL 70-110 H Performe d by certified GLUBED) 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 [facility] [id number] 13:09:00 Test Item Value Reference Range Interpretation Comments GLUBED (test code = 146 MG/DL 70-110 H Performe d by certified GLUBED) 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 [facility] - XR CHEST 2 [id number] 10:17:00 [facility] : 1935 Sex: M FAX: Navjot Byrd [phone] [place]: St: [facility] FAX: Shakeel Davis [phone] FAX: Luis Hoang MD [phone] Name: RADHA BLANCO [facility] : 1935 Age/S: 84/M [address] [place] [address] Blvd Unit #: [id number] Loc: [address] [place] [address] Phys: Luis Hoang MD Acct: [id number] Dis Date: Status: ADM IN PHONE #: [phone] Exam Date: 05/31/2020 0959 FAX #: [phone] Reason: sob EXAMS: CPT CODE: [id number] XR CHEST 2 V [id number] EXAM: XR CHEST 2 VIEWS DATE: 05/31/2020 [...] D/T: S: 05/31/2020 (1020) PAGE 1 Signed [id number] 06:10:00 Test Item Value Reference Range Interpretation Comments GLUBED (test code = 136 MG/DL 70-110 H Performe d by certified GLUBED) 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 [facility] [id number] 18:09:00 Test Item Value Reference Range Interpretation Comments GLUBED (test code = 130 MG/DL 70-110 H Performe d by certified GLUBED) 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 [facility] [id number] 12:37:00 Test Item Value Reference Range Interpretation Comments GLUBED (test code = 155 MG/DL 70-110 H Performe d by certified GLUBED) 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 [facility] CBC W/AUTO [id number] 12:21:00 Test Item Value Reference Range Interpretation [...] REQUIRED (test code NO = MDIFF) RBC [id number] 12:21:00 Test Item Value Reference Range Interpretation Comments POLYCHROMASIA (test code = POLC) 2+ HYPOCHROMIA (test code = HYPO) 1+ ANISOCYTOSIS (test code = ANISO) 2+ MACROCYTOSIS (test code = MACR) 2+ CBC W/AUTO [id number] 08:06:00 Test Item Value Reference Range Interpretation [...] REQUIRED (test code NO = MDIFF) RBC [id number] 08:06:00 Test Item Value Reference Range Interpretation Comments ANISOCYTOSIS (test code = ANISO) CBC W/AUTO [id number] 08:06:00 Test Item Value Reference Range Interpretation [...] REQUIRED (test code NO = MDIFF) RBC [id number] 08:06:00 Test Item Value Reference Range Interpretation Comments ANISOCYTOSIS (test code = ANISO) RENAL FUNCTION [id number] 07:58:00 Test Item Value Reference Range Interpretation [...] code 2.8 MG/DL 2.5-4.9 N = PHOS) [id number] 06:50:00 Test Item Value Reference Range Interpretation Comments GLUBED (test code = 127 MG/DL 70-110 H Performe d by certified GLUBED) 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 [facility] [id number] 23:55:00 Test Item Value Reference Range Interpretation Comments GLUBED (test code = 150 MG/DL 70-110 H Performe d by certified GLUBED) 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 [facility] [id number] 17:35:00 Test Item Value Reference Range Interpretation Comments GLUBED (test code = 136 MG/DL 70-110 H Performe d by certified GLUBED) 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 [facility] [id number] 12:47:00 Test Item Value Reference Range Interpretation Comments GLUBED (test code = 149 MG/DL 70-110 H Performe d by certified GLUBED) 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 [facility] CBC W/AUTO [id number] 08:25:00 Test Item Value Reference Range Interpretation [...] (test code NO = MDIFF) BASIC METABOLIC [id number] 08:14:00 Test Item Value Reference Range Interpretation [...] code = 10.3 mg/dL 8.0-10.5 N CA) [id number] 08:14:00 Test Item Value Reference Range Interpretation Comments MAGNESIUM (test code = MAG) 1.86 mg/dL 1.80-2.40 N CBC W/AUTO [id number] 08:13:00 Test Item Value Reference Range Interpretation [...] MANUAL DIFF REQUIRED (test code = MDIFF) [id number] 06:03:00 Test Item Value Reference Range Interpretation Comments GLUBED (test code = 132 MG/DL 70-110 H Performe d by certified GLUBED) 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 [facility] [id number] 00:39:00 Test Item Value Reference Range Interpretation Comments GLUBED (test code = 140 MG/DL 70-110 H Performe d by certified GLUBED) 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 [facility] [id number] 17:48:00 Test Item Value Reference Range Interpretation Comments GLUBED (test code = 135 MG/DL 70-110 H Performe d by certified GLUBED) 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 [facility] [id number] 14:13:00 Test Item Value Reference Range Interpretation Comments GLUBED (test code = 171 MG/DL 70-110 H Performe d by certified GLUBED) 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 [facility] BASIC METABOLIC [id number] 08:17:00 Test Item Value Reference Range Interpretation [...] code = 10.6 mg/dL 8.0-10.5 H CA) [id number] 08:17:00 Test Item Value Reference Range Interpretation Comments MAGNESIUM (test code = MAG) 2.12 mg/dL 1.80-2.40 N CBC W/AUTO [id number] 07:02:00 Test Item Value Reference Range Interpretation [...] (test code NO = MDIFF) CBC W/AUTO [id number] 06:57:00 Test Item Value Reference Range Interpretation [...] MANUAL DIFF REQUIRED (test code = MDIFF) [id number] 06:36:00 Test Item Value Reference Range Interpretation Comments GLUBED (test code = 122 MG/DL 70-110 H Performe d by certified GLUBED) 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 [facility] [id number] 00:19:00 Test Item Value Reference Range Interpretation Comments GLUBED (test code = 117 MG/DL 70-110 H Performe d by certified GLUBED) 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 [facility] HGB [id number] 19:12:00 Test Item Value Reference Range Interpretation Comments HEMOGLOBIN (test code = HGB) 9.3 g/dL 12.5-16.9 L HEMATOCRIT (test code = HCT) 30.7 % 37.5-50.7 L [id number] 17:24:00 Test Item Value Reference Range Interpretation Comments GLUBED (test code = 157 MG/DL 70-110 H Performe d by certified GLUBED) 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 [facility] [id number] 17:24:00 Test Item Value Reference Range Interpretation Comments GLUBED (test code = 194 MG/DL 70-110 H Performe d by certified GLUBED) 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 [facility] [id number] 12:24:00 Test Item Value Reference Range Interpretation Comments GLUBED (test code = 160 MG/DL 70-110 H Performe d by certified GLUBED) 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 [facility] CBC W/MANUAL [id number] 11:46:00 Test Item Value Reference Range Interpretation [...] THOUSAND ADEQUATE code = PLTEST) CBC W/MANUAL [id number] 10:07:00 Test Item Value Reference Range Interpretation [...] THOUSAND ADEQUATE code = PLTEST) BASIC METABOLIC [id number] 08:22:00 Test Item Value Reference Range Interpretation [...] code = 9.9 mg/dL 8.0-10.5 N CA) [id number] 08:22:00 Test Item Value Reference Range Interpretation Comments MAGNESIUM (test code = MAG) 1.93 mg/dL 1.80-2.40 N CBC W/MANUAL [id number] 07:54:00 Test Item Value Reference Range Interpretation [...] code = THOUSAND ADEQUATE PLTEST) CBC W/MANUAL [id number] 07:25:00 Test Item Value Reference Range Interpretation [...] ESTIMATE (test code = THOUSAND ADEQUATE PLTEST) [id number] 05:56:00 Test Item Value Reference Range Interpretation Comments GLUBED (test code = 114 MG/DL 70-110 H Performe d by certified GLUBED) 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 [facility] [id number] 23:57:00 Test Item Value Reference Range Interpretation Comments GLUBED (test code = 59 MG/DL 70-110 L Performe d by certified GLUBED) 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 [facility] HGB [id number] 23:28:00 Test Item Value Reference Range Interpretation Comments HEMOGLOBIN (test code = HGB) 8.6 g/dL 12.5-16.9 L HEMATOCRIT (test code = HCT) 31.2 % 37.5-50.7 L [id number] 18:35:00 Test Item Value Reference Range Interpretation Comments GLUBED (test code = 136 MG/DL 70-110 H Performe d by certified GLUBED) 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 [facility] [id number] 12:35:00 Test Item Value Reference Range Interpretation Comments GLUBED (test code = 166 MG/DL 70-110 H Performe d by certified GLUBED) 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 [facility] [id number] 09:12:00 Test Item Value Reference Range Interpretation Comments GLUBED (test code = 143 MG/DL 70-110 H Performe d by certified GLUBED) 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 [facility] [id number] 05:39:00 Test Item Value Reference Range Interpretation Comments GLUBED (test code = 122 MG/DL 70-110 H Performe d by certified GLUBED) 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 [facility] BASIC METABOLIC [id number] 05:00:00 Test Item Value Reference Range Interpretation [...] code = 9.6 mg/dL 8.0-10.5 N CA) [id number] 05:00:00 Test Item Value Reference Range Interpretation Comments MAGNESIUM (test code = MAG) 1.72 mg/dL 1.80-2.40 L CBC W/AUTO [id number] 04:32:00 Test Item Value Reference Range Interpretation [...] DIFF REQUIRED (test code NO = MDIFF) [id number] 17:46:00 Test Item Value Reference Range Interpretation Comments GLUBED (test code = 162 MG/DL 70-110 H Performe d by certified GLUBED) 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 [facility] CBC W/AUTO [id number] 08:22:00 Test Item Value Reference Range Interpretation [...] (test code NO = MDIFF) BASIC METABOLIC [id number] 07:49:00 Test Item Value Reference Range Interpretation [...] code = 10.0 mg/dL 8.0-10.5 N CA) [id number] 07:49:00 Test Item Value Reference Range Interpretation Comments MAGNESIUM (test code = MAG) 1.85 mg/dL 1.80-2.40 N [id number] 06:47:00 Test Item Value Reference Range Interpretation Comments GLUBED (test code = 115 MG/DL 70-110 H Performe d by certified GLUBED) 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 [facility] [id number] 01:45:00 Test Item Value Reference Range Interpretation Comments GLUBED (test code = 166 MG/DL 70-110 H Performe d by certified GLUBED) 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 [facility] [id number] 16:38:00 Test Item Value Reference Range Interpretation Comments GLUBED (test code = 140 MG/DL 70-110 H Performe d by certified GLUBED) 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 [facility] HGB [id number] 12:39:00 Test Item Value Reference Range Interpretation Comments HEMOGLOBIN (test code = HGB) 7.5 g/dL 12.5-16.9 L HEMATOCRIT (test code = HCT) 24.9 % 37.5-50.7 L [id number] 11:37:00 Test Item Value Reference Range Interpretation Comments GLUBED (test code = 229 MG/DL 70-110 H Performe d by certified GLUBED) 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 [facility] [id number] 07:27:00 Test Item Value Reference Range Interpretation Comments GLUBED (test code = 131 MG/DL 70-110 H Performe d by certified GLUBED) 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 [facility] BASIC METABOLIC [id number] 04:57:00 Test Item Value Reference Range Interpretation [...] 9.6 mg/dL 8.0-10.5 N CA) CBC W/AUTO [id number] 04:36:00 Test Item Value Reference Range Interpretation [...] DIFF REQUIRED (test code NO = MDIFF) [id number] 23:51:00 Test Item Value Reference Range Interpretation Comments GLUBED (test code = 135 MG/DL 70-110 H Performe d by certified GLUBED) 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 [facility] [id number] 20:01:00 Test Item Value Reference Range Interpretation Comments GLUBED (test code = 123 MG/DL 70-110 H Performe d by certified GLUBED) 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 [facility] [id number] 17:46:00 Test Item Value Reference Range Interpretation Comments GLUBED (test code = 168 MG/DL 70-110 H Performe d by certified GLUBED) 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 [facility] [id number] 12:47:00 Test Item Value Reference Range Interpretation Comments GLUBED (test code = 146 MG/DL 70-110 H Performe d by certified GLUBED) 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 [facility] COMPREHENSIVE METABOLIC [id number] 05:40:00 Test Item Value Reference Range Interpretation [...] 20-125 N TOTAL (test code = ALKP) [id number] 05:40:00 Test Item Value Reference Range Interpretation Comments PHOSPHOROUS (test code = PHOS) 4.9 MG/DL 2.5-4.9 N B-TYPE NATRIURETIC [id number] 05:39:00 Test Item Value Reference Range Interpretation Comments B-TYPE NATRIURETIC PEPTIDE (test 1151.0 PG/ML 0-100 H code = BNP) CBC W/AUTO [id number] 05:30:00 Test Item Value Reference Range Interpretation [...] (test code NO = MDIFF) CBC W/AUTO [id number] 05:28:00 Test Item Value Reference Range Interpretation [...] MANUAL DIFF REQUIRED (test code = MDIFF) [id number] 21:17:00 Test Item Value Reference Range Interpretation Comments GLUBED (test code = 149 MG/DL 70-110 H Performe d by certified GLUBED) 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 [facility] [id number] 15:37:00 Test Item Value Reference Range Interpretation Comments GLUBED (test code = 151 MG/DL 70-110 H Performe d by certified GLUBED) 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 [facility] [id number] 15:36:00 Test Item Value Reference Range Interpretation Comments GLUBED (test code = 156 MG/DL 70-110 H Performe d by certified GLUBED) 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 [facility] [id number] 14:00:00 Test Item Value Reference Range Interpretation Comments ACT-ISTAT (test code 290 SEC 74-137 H Perform ed by certified = ACTI) 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 [facility] [id number] 14:00:00 Test Item Value Reference Range Interpretation Comments ACT-ISTAT (test code 219 SEC 74-137 H Perform ed by certified = ACTI) 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 [facility] [id number] 13:22:00 Test Item Value Reference Range Interpretation Comments SODIUM (test code = NA/ABG) MEQ/L 134-147 [id number] 13:22:00 Test Item Value Reference Range Interpretation Comments POTASSIUM (test code = K/ABG) MEQ/L 3.4-5.0 CREATININE [id number] 13:22:00 Test Item Value Reference Range Interpretation Comments CREATININE ABG (test code = CREAABG) mg/dL 0.8-1.3 [id number] 13:22:00 Test Item Value Reference Range Interpretation Comments HEMOGLOBIN (test code = HGB/ABG) G/DL 12.5-16.9 [id number] 13:22:00 Test Item Value Reference Range Interpretation Comments HEMATOCRIT (test code = HCT/ABG) % 37.5-50.7 POC IONIZED [id number] 13:22:00 Test Item Value Reference Range Interpretation Comments POC IONIZED CALCIUM (test code = MMOL/L 1.12-1.32 POCCA) POC LACTIC [id number] 13:22:00 Test Item Value Reference Range Interpretation Comments POC LACTIC ACID (test code = POCLAC) mmol/l 0.9-1.7 POC [id number] 13:22:00 Test Item Value Reference Range Interpretation Comments POC GLUCOSE (test code = POCGLU) MG/DL 70-110 POC VENOUS BLOOD [id number] 13:22:00 Test Item Value Reference Range Interpretation Comments POC VENOUS BLOOD GAS PH (test 7.356 7.33-7.45 N code = POCPHV) POC VENOUS BLOOD GAS PCO2 (test 50.9 mmHg 43-47 H code = [id number]) POC VENOUS BLOOD GAS PO2 (test 35.4 mmHG 10-50 N code = IMSTP4P) POC TCO2 VENOUS (test code = 30.1 [id number]) POC HCO3 VENOUS (test code = 28.5 MMOL/L 22-27 H VAJAHT5W) POC BASE EXCESS VENOUS (test code 2.6 MMOL/L -4.0-4.0 N = POCBEV) POC O2 SATURATION VENOUS (test 64.3 % 60-80 N code = DGMZ1CP) [id number] 13:22:00 Test Item Value Reference Range Interpretation Comments CHLORIDE (test code = CL/VBG) MEQ/L [id number] 13:22:00 Test Item Value Reference Range Interpretation Comments SODIUM (test code = NA/ABG) 139 MEQ/L 134-147 N [id number] 13:22:00 Test Item Value Reference Range Interpretation Comments POTASSIUM (test code = K/ABG) MEQ/L 3.4-5.0 CREATININE [id number] 13:22:00 Test Item Value Reference Range Interpretation Comments CREATININE ABG (test code = CREAABG) mg/dL 0.8-1.3 [id number] 13:22:00 Test Item Value Reference Range Interpretation Comments HEMOGLOBIN (test code = HGB/ABG) G/DL 12.5-16.9 [id number] 13:22:00 Test Item Value Reference Range Interpretation Comments HEMATOCRIT (test code = HCT/ABG) % 37.5-50.7 POC IONIZED [id number] 13:22:00 Test Item Value Reference Range Interpretation Comments POC IONIZED CALCIUM (test code = MMOL/L 1.12-1.32 POCCA) POC LACTIC [id number] 13:22:00 Test Item Value Reference Range Interpretation Comments POC LACTIC ACID (test code = POCLAC) mmol/l 0.9-1.7 POC [id number] 13:22:00 Test Item Value Reference Range Interpretation Comments POC GLUCOSE (test code = POCGLU) MG/DL 70-110 POC VENOUS BLOOD [id number] 13:22:00 Test Item Value Reference Range Interpretation Comments POC VENOUS BLOOD GAS PH (test 7.356 7.33-7.45 N code = POCPHV) POC VENOUS BLOOD GAS PCO2 (test 50.9 mmHg 43-47 H code = SYOCDN6R) POC VENOUS BLOOD GAS PO2 (test 35.4 mmHG 10-50 N code = YSOZW4N) POC TCO2 VENOUS (test code = 30.1 FXMEHJ4U) POC HCO3 VENOUS (test code = 28.5 MMOL/L 22-27 H GTXHSN0R) POC BASE EXCESS VENOUS (test code 2.6 MMOL/L -4.0-4.0 N = POCBEV) POC O2 SATURATION VENOUS (test 64.3 % 60-80 N code = GHIZ1OI) [id number] 13:22:00 Test Item Value Reference Range Interpretation Comments CHLORIDE (test code = CL/VBG) MEQ/L [id number] 13:22:00 Test Item Value Reference Range Interpretation Comments SODIUM (test code = NA/ABG) 139 MEQ/L 134-147 N [id number] 13:22:00 Test Item Value Reference Range Interpretation Comments POTASSIUM (test code = K/ABG) 3.8 MEQ/L 3.4-5.0 N CREATININE [id number] 13:22:00 Test Item Value Reference Range Interpretation Comments CREATININE ABG (test code = CREAABG) mg/dL 0.8-1.3 [id number] 13:22:00 Test Item Value Reference Range Interpretation Comments HEMOGLOBIN (test code = HGB/ABG) G/DL 12.5-16.9 [id number] 13:22:00 Test Item Value Reference Range Interpretation Comments HEMATOCRIT (test code = HCT/ABG) % 37.5-50.7 POC IONIZED [id number] 13:22:00 Test Item Value Reference Range Interpretation Comments POC IONIZED CALCIUM (test code = MMOL/L 1.12-1.32 POCCA) POC LACTIC [id number] 13:22:00 Test Item Value Reference Range Interpretation Comments POC LACTIC ACID (test code = POCLAC) mmol/l 0.9-1.7 POC [id number] 13:22:00 Test Item Value Reference Range Interpretation Comments POC GLUCOSE (test code = POCGLU) MG/DL 70-110 POC VENOUS BLOOD [id number] 13:22:00 Test Item Value Reference Range Interpretation Comments POC VENOUS BLOOD GAS PH (test 7.356 7.33-7.45 N code = POCPHV) POC VENOUS BLOOD GAS PCO2 (test 50.9 mmHg 43-47 H code = RXFZJO5K) POC VENOUS BLOOD GAS PO2 (test 35.4 mmHG 10-50 N code = HDRCJ2V) POC TCO2 VENOUS (test code = 30.1 [id number]) POC HCO3 VENOUS (test code = 28.5 MMOL/L 22-27 H HFSVHP6S) POC BASE EXCESS VENOUS (test code 2.6 MMOL/L -4.0-4.0 N = POCBEV) POC O2 SATURATION VENOUS (test 64.3 % 60-80 N code = WXUM5PN) [id number] 13:22:00 Test Item Value Reference Range Interpretation Comments CHLORIDE (test code = CL/VBG) MEQ/L [id number] 13:22:00 Test Item Value Reference Range Interpretation Comments SODIUM (test code = NA/ABG) 139 MEQ/L 134-147 N [id number] 13:22:00 Test Item Value Reference Range Interpretation Comments POTASSIUM (test code = K/ABG) 3.8 MEQ/L 3.4-5.0 N CREATININE [id number] 13:22:00 Test Item Value Reference Range Interpretation Comments CREATININE ABG (test code = CREAABG) mg/dL 0.8-1.3 [id number] 13:22:00 Test Item Value Reference Range Interpretation Comments HEMOGLOBIN (test code = HGB/ABG) G/DL 12.5-16.9 [id number] 13:22:00 Test Item Value Reference Range Interpretation Comments HEMATOCRIT (test code = HCT/ABG) % 37.5-50.7 POC IONIZED [id number] 13:22:00 Test Item Value Reference Range Interpretation Comments POC IONIZED CALCIUM (test code = 1.29 MMOL/L 1.12-1.32 N POCCA) POC LACTIC [id number] 13:22:00 Test Item Value Reference Range Interpretation Comments POC LACTIC ACID (test code = POCLAC) mmol/l 0.9-1.7 POC [id number] 13:22:00 Test Item Value Reference Range Interpretation Comments POC GLUCOSE (test code = POCGLU) MG/DL 70-110 POC VENOUS BLOOD [id number] 13:22:00 Test Item Value Reference Range Interpretation Comments POC VENOUS BLOOD GAS PH (test 7.356 7.33-7.45 N code = POCPHV) POC VENOUS BLOOD GAS PCO2 (test 50.9 mmHg 43-47 H code = CQYCHN1L) POC VENOUS BLOOD GAS PO2 (test 35.4 mmHG 10-50 N code = NQQHR4M) POC TCO2 VENOUS (test code = 30.1 HWDGWD5N) POC HCO3 VENOUS (test code = 28.5 MMOL/L 22-27 H PFCMYI2H) POC BASE EXCESS VENOUS (test code 2.6 MMOL/L -4.0-4.0 N = POCBEV) POC O2 SATURATION VENOUS (test 64.3 % 60-80 N code = FQGR2TM) [id number] 13:22:00 Test Item Value Reference Range Interpretation Comments CHLORIDE (test code = CL/VBG) MEQ/L [id number] 13:22:00 Test Item Value Reference Range Interpretation Comments SODIUM (test code = NA/ABG) 139 MEQ/L 134-147 N [id number] 13:22:00 Test Item Value Reference Range Interpretation Comments POTASSIUM (test code = K/ABG) 3.8 MEQ/L 3.4-5.0 N CREATININE [id number] 13:22:00 Test Item Value Reference Range Interpretation Comments CREATININE ABG (test code = CREAABG) mg/dL 0.8-1.3 [id number] 13:22:00 Test Item Value Reference Range Interpretation Comments HEMOGLOBIN (test code = HGB/ABG) G/DL 12.5-16.9 [id number] 13:22:00 Test Item Value Reference Range Interpretation Comments HEMATOCRIT (test code = HCT/ABG) % 37.5-50.7 POC IONIZED [id number] 13:22:00 Test Item Value Reference Range Interpretation Comments POC IONIZED CALCIUM (test code = 1.29 MMOL/L 1.12-1.32 N POCCA) POC LACTIC [id number] 13:22:00 Test Item Value Reference Range Interpretation Comments POC LACTIC ACID (test code = POCLAC) mmol/l 0.9-1.7 POC [id number] 13:22:00 Test Item Value Reference Range Interpretation Comments POC GLUCOSE (test code = POCGLU) 128 MG/DL 70-110 H POC VENOUS BLOOD [id number] 13:22:00 Test Item Value Reference Range Interpretation Comments POC VENOUS BLOOD GAS PH (test 7.356 7.33-7.45 N code = POCPHV) POC VENOUS BLOOD GAS PCO2 (test 50.9 mmHg 43-47 H code = RHGMFK2K) POC VENOUS BLOOD GAS PO2 (test 35.4 mmHG 10-50 N code = QYLBF7F) POC TCO2 VENOUS (test code = 30.1 HAZOYD7T) POC HCO3 VENOUS (test code = 28.5 MMOL/L 22-27 H TRJESW2F) POC BASE EXCESS VENOUS (test code 2.6 MMOL/L -4.0-4.0 N = POCBEV) POC O2 SATURATION VENOUS (test 64.3 % 60-80 N code = LFOI1SX) [id number] 13:22:00 Test Item Value Reference Range Interpretation Comments CHLORIDE (test code = CL/VBG) MEQ/L [id number] 13:22:00 Test Item Value Reference Range Interpretation Comments SODIUM (test code = NA/ABG) 139 MEQ/L 134-147 N [id number] 13:22:00 Test Item Value Reference Range Interpretation Comments POTASSIUM (test code = K/ABG) 3.8 MEQ/L 3.4-5.0 N CREATININE [id number] 13:22:00 Test Item Value Reference Range Interpretation Comments CREATININE ABG (test code = CREAABG) mg/dL 0.8-1.3 [id number] 13:22:00 Test Item Value Reference Range Interpretation Comments HEMOGLOBIN (test code = HGB/ABG) G/DL 12.5-16.9 [id number] 13:22:00 Test Item Value Reference Range Interpretation Comments HEMATOCRIT (test code = HCT/ABG) % 37.5-50.7 POC IONIZED [id number] 13:22:00 Test Item Value Reference Range Interpretation Comments POC IONIZED CALCIUM (test code = 1.29 MMOL/L 1.12-1.32 N POCCA) POC LACTIC [id number] 13:22:00 Test Item Value Reference Range Interpretation Comments POC LACTIC ACID (test code = 0.4 mmol/l 0.9-1.7 L POCLAC) POC [id number] 13:22:00 Test Item Value Reference Range Interpretation Comments POC GLUCOSE (test code = POCGLU) 128 MG/DL 70-110 H POC VENOUS BLOOD [id number] 13:22:00 Test Item Value Reference Range Interpretation Comments POC VENOUS BLOOD GAS PH (test 7.356 7.33-7.45 N code = POCPHV) POC VENOUS BLOOD GAS PCO2 (test 50.9 mmHg 43-47 H code = BOSWWT2L) POC VENOUS BLOOD GAS PO2 (test 35.4 mmHG 10-50 N code = YFLMJ2W) POC TCO2 VENOUS (test code = 30.1 CGEJKS2Q) POC HCO3 VENOUS (test code = 28.5 MMOL/L 22-27 H WVTGUQ3D) POC BASE EXCESS VENOUS (test code 2.6 MMOL/L -4.0-4.0 N = POCBEV) POC O2 SATURATION VENOUS (test 64.3 % 60-80 N code = RKTE6UZ) [id number] 13:22:00 Test Item Value Reference Range Interpretation Comments CHLORIDE (test code = CL/VBG) MEQ/L [id number] 13:22:00 Test Item Value Reference Range Interpretation Comments SODIUM (test code = NA/ABG) 139 MEQ/L 134-147 N [id number] 13:22:00 Test Item Value Reference Range Interpretation Comments POTASSIUM (test code = K/ABG) 3.8 MEQ/L 3.4-5.0 N CREATININE [id number] 13:22:00 Test Item Value Reference Range Interpretation Comments CREATININE ABG (test code = CREAABG) mg/dL 0.8-1.3 [id number] 13:22:00 Test Item Value Reference Range Interpretation Comments HEMOGLOBIN (test code = HGB/ABG) G/DL 12.5-16.9 [id number] 13:22:00 Test Item Value Reference Range Interpretation Comments HEMATOCRIT (test code = HCT/ABG) 21 % 37.5-50.7 L POC IONIZED [id number] 13:22:00 Test Item Value Reference Range Interpretation Comments POC IONIZED CALCIUM (test code = 1.29 MMOL/L 1.12-1.32 N POCCA) POC LACTIC [id number] 13:22:00 Test Item Value Reference Range Interpretation Comments POC LACTIC ACID (test code = 0.4 mmol/l 0.9-1.7 L POCLAC) POC [id number] 13:22:00 Test Item Value Reference Range Interpretation Comments POC GLUCOSE (test code = POCGLU) 128 MG/DL 70-110 H POC VENOUS BLOOD [id number] 13:22:00 Test Item Value Reference Range Interpretation Comments POC VENOUS BLOOD GAS PH (test 7.356 7.33-7.45 N code = POCPHV) POC VENOUS BLOOD GAS PCO2 (test 50.9 mmHg 43-47 H code = RAMNEX7W) POC VENOUS BLOOD GAS PO2 (test 35.4 mmHG 10-50 N code = TDHOQ4R) POC TCO2 VENOUS (test code = 30.1 NXDVRS7D) POC HCO3 VENOUS (test code = 28.5 MMOL/L 22-27 H VPIHRY6G) POC BASE EXCESS VENOUS (test code 2.6 MMOL/L -4.0-4.0 N = POCBEV) POC O2 SATURATION VENOUS (test 64.3 % 60-80 N code = LRJK6ET) [id number] 13:22:00 Test Item Value Reference Range Interpretation Comments CHLORIDE (test code = CL/VBG) MEQ/L [id number] 13:22:00 Test Item Value Reference Range Interpretation Comments SODIUM (test code = NA/ABG) 139 MEQ/L 134-147 N [id number] 13:22:00 Test Item Value Reference Range Interpretation Comments POTASSIUM (test code = K/ABG) 3.8 MEQ/L 3.4-5.0 N CREATININE [id number] 13:22:00 Test Item Value Reference Range Interpretation Comments CREATININE ABG (test code = CREAABG) mg/dL 0.8-1.3 [id number] 13:22:00 Test Item Value Reference Range Interpretation Comments HEMOGLOBIN (test code = HGB/ABG) 7.2 G/DL 12.5-16.9 L [id number] 13:22:00 Test Item Value Reference Range Interpretation Comments HEMATOCRIT (test code = HCT/ABG) 21 % 37.5-50.7 L POC IONIZED [id number] 13:22:00 Test Item Value Reference Range Interpretation Comments POC IONIZED CALCIUM (test code = 1.29 MMOL/L 1.12-1.32 N POCCA) POC LACTIC [id number] 13:22:00 Test Item Value Reference Range Interpretation Comments POC LACTIC ACID (test code = 0.4 mmol/l 0.9-1.7 L POCLAC) POC [id number] 13:22:00 Test Item Value Reference Range Interpretation Comments POC GLUCOSE (test code = POCGLU) 128 MG/DL 70-110 H POC VENOUS BLOOD [id number] 13:22:00 Test Item Value Reference Range Interpretation Comments POC VENOUS BLOOD GAS PH (test 7.356 7.33-7.45 N code = POCPHV) POC VENOUS BLOOD GAS PCO2 (test 50.9 mmHg 43-47 H code = FXCHXR9A) POC VENOUS BLOOD GAS PO2 (test 35.4 mmHG 10-50 N code = XYSUT2A) POC TCO2 VENOUS (test code = 30.1 TGFVED6M) POC HCO3 VENOUS (test code = 28.5 MMOL/L 22-27 H YZVCOD5K) POC BASE EXCESS VENOUS (test code 2.6 MMOL/L -4.0-4.0 N = POCBEV) POC O2 SATURATION VENOUS (test 64.3 % 60-80 N code = UGGG5HK) [id number] 13:22:00 Test Item Value Reference Range Interpretation Comments CHLORIDE (test code = CL/VBG) MEQ/L [id number] 13:22:00 Test Item Value Reference Range Interpretation Comments SODIUM (test code = NA/ABG) 139 MEQ/L 134-147 N [id number] 13:22:00 Test Item Value Reference Range Interpretation Comments POTASSIUM (test code = K/ABG) 3.8 MEQ/L 3.4-5.0 N CREATININE [id number] 13:22:00 Test Item Value Reference Range Interpretation Comments CREATININE ABG (test code = CREAABG) mg/dL 0.8-1.3 [id number] 13:22:00 Test Item Value Reference Range Interpretation Comments HEMOGLOBIN (test code = HGB/ABG) 7.2 G/DL 12.5-16.9 L [id number] 13:22:00 Test Item Value Reference Range Interpretation Comments HEMATOCRIT (test code = HCT/ABG) 21 % 37.5-50.7 L POC IONIZED [id number] 13:22:00 Test Item Value Reference Range Interpretation Comments POC IONIZED CALCIUM (test code = 1.29 MMOL/L 1.12-1.32 N POCCA) POC LACTIC [id number] 13:22:00 Test Item Value Reference Range Interpretation Comments POC LACTIC ACID (test code = 0.4 mmol/l 0.9-1.7 L POCLAC) POC [id number] 13:22:00 Test Item Value Reference Range Interpretation Comments POC GLUCOSE (test code = POCGLU) 128 MG/DL 70-110 H POC VENOUS BLOOD [id number] 13:22:00 Test Item Value Reference Range Interpretation Comments POC VENOUS BLOOD GAS PH (test 7.356 7.33-7.45 N code = POCPHV) POC VENOUS BLOOD GAS PCO2 (test 50.9 mmHg 43-47 H code = NWGKGW1V) POC VENOUS BLOOD GAS PO2 (test 35.4 mmHG 10-50 N code = JGJOI1A) POC TCO2 VENOUS (test code = 30.1 JJUZVB0P) POC HCO3 VENOUS (test code = 28.5 MMOL/L 22-27 H NCGLYT3J) POC BASE EXCESS VENOUS (test code 2.6 MMOL/L -4.0-4.0 N = POCBEV) POC O2 SATURATION VENOUS (test 64.3 % 60-80 N code = VJZJ9IR) [id number] 13:22:00 Test Item Value Reference Range Interpretation Comments CHLORIDE (test code = CL/VBG) 104 MEQ/L [id number] 13:22:00 Test Item Value Reference Range Interpretation Comments SODIUM (test code = NA/ABG) 139 MEQ/L 134-147 N [id number] 13:22:00 Test Item Value Reference Range Interpretation Comments POTASSIUM (test code = K/ABG) 3.8 MEQ/L 3.4-5.0 N CREATININE [id number] 13:22:00 Test Item Value Reference Range Interpretation Comments CREATININE ABG (test code = 5.3 mg/dL 0.8-1.3 H CREAABG) [id number] 13:22:00 Test Item Value Reference Range Interpretation Comments HEMOGLOBIN (test code = HGB/ABG) 7.2 G/DL 12.5-16.9 L [id number] 13:22:00 Test Item Value Reference Range Interpretation Comments HEMATOCRIT (test code = HCT/ABG) 21 % 37.5-50.7 L POC IONIZED [id number] 13:22:00 Test Item Value Reference Range Interpretation Comments POC IONIZED CALCIUM (test code = 1.29 MMOL/L 1.12-1.32 N POCCA) POC LACTIC [id number] 13:22:00 Test Item Value Reference Range Interpretation Comments POC LACTIC ACID (test code = 0.4 mmol/l 0.9-1.7 L POCLAC) POC [id number] 13:22:00 Test Item Value Reference Range Interpretation Comments POC GLUCOSE (test code = POCGLU) 128 MG/DL 70-110 H POC VENOUS BLOOD [id number] 13:22:00 Test Item Value Reference Range Interpretation Comments POC VENOUS BLOOD GAS PH (test 7.356 7.33-7.45 N code = POCPHV) POC VENOUS BLOOD GAS PCO2 (test 50.9 mmHg 43-47 H code = JLGMIV8I) POC VENOUS BLOOD GAS PO2 (test 35.4 mmHG 10-50 N code = FCHDO7D) POC TCO2 VENOUS (test code = 30.1 QJLGQT5D) POC HCO3 VENOUS (test code = 28.5 MMOL/L 22-27 H GAQPXA2O) POC BASE EXCESS VENOUS (test code 2.6 MMOL/L -4.0-4.0 N = POCBEV) POC O2 SATURATION VENOUS (test 64.3 % 60-80 N code = TTHM5NJ) [id number] 13:22:00 Test Item Value Reference Range Interpretation Comments CHLORIDE (test code = CL/VBG) 104 MEQ/L POC ARTERIAL BLOOD [id number] 12:48:00 Test Item Value Reference Range Interpretation Comments POC ARTERIAL BLOOD GAS PH (test 7.406 7.35-7.45 N code = POCPHA) POC ARTERIAL BLOOD GAS PCO2 (test 43.4 mmHg 35.0-45 N code = ALCZAF5C) POC TCO2 ARTERIAL (test code = 28.6 POCTCO2) POC ARTERIAL BLOOD GAS PO2 (test 115.1 mmHg 80-100.0 H code = YHZQB2N) POC HCO3 ARTERIAL (test code = 27.3 MMOL/L 22.0-26.0 H CRIYFQ7Q) POC BASE EXCESS (test code = 2.3 MMOL/L -4.0-4.0 N POCBEA) POC O2 SATURATION (test code = 98.5 % 90-100 N POCO2S) [id number] 12:48:00 Test Item Value Reference Range Interpretation Comments SODIUM (test code = NA/ABG) MEQ/L 134-147 [id number] 12:48:00 Test Item Value Reference Range Interpretation Comments POTASSIUM (test code = K/ABG) MEQ/L 3.4-5.0 [id number] 12:48:00 Test Item Value Reference Range Interpretation Comments CHLORIDE (test code = CL/ABG) MEQ/L 100-108 CREATININE [id number] 12:48:00 Test Item Value Reference Range Interpretation Comments CREATININE ABG (test code = CREAABG) mg/dL 0.8-1.3 [id number] 12:48:00 Test Item Value Reference Range Interpretation Comments HEMOGLOBIN (test code = HGB/ABG) G/DL 12.5-16.9 [id number] 12:48:00 Test Item Value Reference Range Interpretation Comments HEMATOCRIT (test code = HCT/ABG) % 37.5-50.7 POC IONIZED [id number] 12:48:00 Test Item Value Reference Range Interpretation Comments POC IONIZED CALCIUM (test code = MMOL/L 1.12-1.32 POCCA) POC LACTIC [id number] 12:48:00 Test Item Value Reference Range Interpretation Comments POC LACTIC ACID (test code = POCLAC) mmol/l 0.9-1.7 POC [id number] 12:48:00 Test Item Value Reference Range Interpretation Comments POC GLUCOSE (test code = POCGLU) MG/DL 70-110 POC ARTERIAL BLOOD [id number] 12:48:00 Test Item Value Reference Range Interpretation Comments POC ARTERIAL BLOOD GAS PH (test 7.406 7.35-7.45 N code = POCPHA) POC ARTERIAL BLOOD GAS PCO2 (test 43.4 mmHg 35.0-45 N code = BSNKVJ9R) POC TCO2 ARTERIAL (test code = 28.6 POCTCO2) POC ARTERIAL BLOOD GAS PO2 (test 115.1 mmHg 80-100.0 H code = MNQNG6A) POC HCO3 ARTERIAL (test code = 27.3 MMOL/L 22.0-26.0 H HNRWRW3E) POC BASE EXCESS (test code = 2.3 MMOL/L -4.0-4.0 N POCBEA) POC O2 SATURATION (test code = 98.5 % 90-100 N POCO2S) [id number] 12:48:00 Test Item Value Reference Range Interpretation Comments SODIUM (test code = NA/ABG) 138 MEQ/L 134-147 N [id number] 12:48:00 Test Item Value Reference Range Interpretation Comments POTASSIUM (test code = K/ABG) MEQ/L 3.4-5.0 [id number] 12:48:00 Test Item Value Reference Range Interpretation Comments CHLORIDE (test code = CL/ABG) MEQ/L 100-108 CREATININE [id number] 12:48:00 Test Item Value Reference Range Interpretation Comments CREATININE ABG (test code = CREAABG) mg/dL 0.8-1.3 [id number] 12:48:00 Test Item Value Reference Range Interpretation Comments HEMOGLOBIN (test code = HGB/ABG) G/DL 12.5-16.9 [id number] 12:48:00 Test Item Value Reference Range Interpretation Comments HEMATOCRIT (test code = HCT/ABG) % 37.5-50.7 POC IONIZED [id number] 12:48:00 Test Item Value Reference Range Interpretation Comments POC IONIZED CALCIUM (test code = MMOL/L 1.12-1.32 POCCA) POC LACTIC [id number] 12:48:00 Test Item Value Reference Range Interpretation Comments POC LACTIC ACID (test code = POCLAC) mmol/l 0.9-1.7 POC [id number] 12:48:00 Test Item Value Reference Range Interpretation Comments POC GLUCOSE (test code = POCGLU) MG/DL 70-110 POC ARTERIAL BLOOD [id number] 12:48:00 Test Item Value Reference Range Interpretation Comments POC ARTERIAL BLOOD GAS PH (test 7.406 7.35-7.45 N code = POCPHA) POC ARTERIAL BLOOD GAS PCO2 (test 43.4 mmHg 35.0-45 N code = MULCXH8G) POC TCO2 ARTERIAL (test code = 28.6 POCTCO2) POC ARTERIAL BLOOD GAS PO2 (test 115.1 mmHg 80-100.0 H code = YNXMW6G) POC HCO3 ARTERIAL (test code = 27.3 MMOL/L 22.0-26.0 H KACTNJ1C) POC BASE EXCESS (test code = 2.3 MMOL/L -4.0-4.0 N POCBEA) POC O2 SATURATION (test code = 98.5 % 90-100 N POCO2S) [id number] 12:48:00 Test Item Value Reference Range Interpretation Comments SODIUM (test code = NA/ABG) 138 MEQ/L 134-147 N [id number] 12:48:00 Test Item Value Reference Range Interpretation Comments POTASSIUM (test code = K/ABG) 4.0 MEQ/L 3.4-5.0 N [id number] 12:48:00 Test Item Value Reference Range Interpretation Comments CHLORIDE (test code = CL/ABG) MEQ/L 100-108 CREATININE [id number] 12:48:00 Test Item Value Reference Range Interpretation Comments CREATININE ABG (test code = CREAABG) mg/dL 0.8-1.3 [id number] 12:48:00 Test Item Value Reference Range Interpretation Comments HEMOGLOBIN (test code = HGB/ABG) G/DL 12.5-16.9 [id number] 12:48:00 Test Item Value Reference Range Interpretation Comments HEMATOCRIT (test code = HCT/ABG) % 37.5-50.7 POC IONIZED [id number] 12:48:00 Test Item Value Reference Range Interpretation Comments POC IONIZED CALCIUM (test code = MMOL/L 1.12-1.32 POCCA) POC LACTIC [id number] 12:48:00 Test Item Value Reference Range Interpretation Comments POC LACTIC ACID (test code = POCLAC) mmol/l 0.9-1.7 POC [id number] 12:48:00 Test Item Value Reference Range Interpretation Comments POC GLUCOSE (test code = POCGLU) MG/DL 70-110 POC ARTERIAL BLOOD [id number] 12:48:00 Test Item Value Reference Range Interpretation Comments POC ARTERIAL BLOOD GAS PH (test 7.406 7.35-7.45 N code = POCPHA) POC ARTERIAL BLOOD GAS PCO2 (test 43.4 mmHg 35.0-45 N code = QRHLEC6O) POC TCO2 ARTERIAL (test code = 28.6 POCTCO2) POC ARTERIAL BLOOD GAS PO2 (test 115.1 mmHg 80-100.0 H code = UTIVK1C) POC HCO3 ARTERIAL (test code = 27.3 MMOL/L 22.0-26.0 H AJCYSR3I) POC BASE EXCESS (test code = 2.3 MMOL/L -4.0-4.0 N POCBEA) POC O2 SATURATION (test code = 98.5 % 90-100 N POCO2S) [id number] 12:48:00 Test Item Value Reference Range Interpretation Comments SODIUM (test code = NA/ABG) 138 MEQ/L 134-147 N [id number] 12:48:00 Test Item Value Reference Range Interpretation Comments POTASSIUM (test code = K/ABG) 4.0 MEQ/L 3.4-5.0 N [id number] 12:48:00 Test Item Value Reference Range Interpretation Comments CHLORIDE (test code = CL/ABG) MEQ/L 100-108 CREATININE [id number] 12:48:00 Test Item Value Reference Range Interpretation Comments CREATININE ABG (test code = CREAABG) mg/dL 0.8-1.3 [id number] 12:48:00 Test Item Value Reference Range Interpretation Comments HEMOGLOBIN (test code = HGB/ABG) G/DL 12.5-16.9 [id number] 12:48:00 Test Item Value Reference Range Interpretation Comments HEMATOCRIT (test code = HCT/ABG) % 37.5-50.7 POC IONIZED [id number] 12:48:00 Test Item Value Reference Range Interpretation Comments POC IONIZED CALCIUM (test code = 1.30 MMOL/L 1.12-1.32 N POCCA) POC LACTIC [id number] 12:48:00 Test Item Value Reference Range Interpretation Comments POC LACTIC ACID (test code = POCLAC) mmol/l 0.9-1.7 POC [id number] 12:48:00 Test Item Value Reference Range Interpretation Comments POC GLUCOSE (test code = POCGLU) MG/DL 70-110 POC ARTERIAL BLOOD [id number] 12:48:00 Test Item Value Reference Range Interpretation Comments POC ARTERIAL BLOOD GAS PH (test 7.406 7.35-7.45 N code = POCPHA) POC ARTERIAL BLOOD GAS PCO2 (test 43.4 mmHg 35.0-45 N code = NMCEQX2D) POC TCO2 ARTERIAL (test code = 28.6 POCTCO2) POC ARTERIAL BLOOD GAS PO2 (test 115.1 mmHg 80-100.0 H code = WLXTR6U) POC HCO3 ARTERIAL (test code = 27.3 MMOL/L 22.0-26.0 H PJMLDY4U) POC BASE EXCESS (test code = 2.3 MMOL/L -4.0-4.0 N POCBEA) POC O2 SATURATION (test code = 98.5 % 90-100 N POCO2S) [id number] 12:48:00 Test Item Value Reference Range Interpretation Comments SODIUM (test code = NA/ABG) 138 MEQ/L 134-147 N [id number] 12:48:00 Test Item Value Reference Range Interpretation Comments POTASSIUM (test code = K/ABG) 4.0 MEQ/L 3.4-5.0 N [id number] 12:48:00 Test Item Value Reference Range Interpretation Comments CHLORIDE (test code = CL/ABG) MEQ/L 100-108 CREATININE [id number] 12:48:00 Test Item Value Reference Range Interpretation Comments CREATININE ABG (test code = CREAABG) mg/dL 0.8-1.3 [id number] 12:48:00 Test Item Value Reference Range Interpretation Comments HEMOGLOBIN (test code = HGB/ABG) G/DL 12.5-16.9 [id number] 12:48:00 Test Item Value Reference Range Interpretation Comments HEMATOCRIT (test code = HCT/ABG) % 37.5-50.7 POC IONIZED [id number] 12:48:00 Test Item Value Reference Range Interpretation Comments POC IONIZED CALCIUM (test code = 1.30 MMOL/L 1.12-1.32 N POCCA) POC LACTIC [id number] 12:48:00 Test Item Value Reference Range Interpretation Comments POC LACTIC ACID (test code = POCLAC) mmol/l 0.9-1.7 POC [id number] 12:48:00 Test Item Value Reference Range Interpretation Comments POC GLUCOSE (test code = POCGLU) 131 MG/DL 70-110 H POC ARTERIAL BLOOD [id number] 12:48:00 Test Item Value Reference Range Interpretation Comments POC ARTERIAL BLOOD GAS PH (test 7.406 7.35-7.45 N code = POCPHA) POC ARTERIAL BLOOD GAS PCO2 (test 43.4 mmHg 35.0-45 N code = [id number]) POC TCO2 ARTERIAL (test code = 28.6 POCTCO2) POC ARTERIAL BLOOD GAS PO2 (test 115.1 mmHg 80-100.0 H code = YGFKH0O) POC HCO3 ARTERIAL (test code = 27.3 MMOL/L 22.0-26.0 H [id number]) POC BASE EXCESS (test code = 2.3 MMOL/L -4.0-4.0 N POCBEA) POC O2 SATURATION (test code = 98.5 % 90-100 N POCO2S) [id number] 12:48:00 Test Item Value Reference Range Interpretation Comments SODIUM (test code = NA/ABG) 138 MEQ/L 134-147 N [id number] 12:48:00 Test Item Value Reference Range Interpretation Comments POTASSIUM (test code = K/ABG) 4.0 MEQ/L 3.4-5.0 N [id number] 12:48:00 Test Item Value Reference Range Interpretation Comments CHLORIDE (test code = CL/ABG) MEQ/L 100-108 CREATININE [id number] 12:48:00 Test Item Value Reference Range Interpretation Comments CREATININE ABG (test code = CREAABG) mg/dL 0.8-1.3 [id number] 12:48:00 Test Item Value Reference Range Interpretation Comments HEMOGLOBIN (test code = HGB/ABG) G/DL 12.5-16.9 [id number] 12:48:00 Test Item Value Reference Range Interpretation Comments HEMATOCRIT (test code = HCT/ABG) % 37.5-50.7 POC IONIZED [id number] 12:48:00 Test Item Value Reference Range Interpretation Comments POC IONIZED CALCIUM (test code = 1.30 MMOL/L 1.12-1.32 N POCCA) POC LACTIC [id number] 12:48:00 Test Item Value Reference Range Interpretation Comments POC LACTIC ACID (test code = 0.6 mmol/l 0.9-1.7 L POCLAC) POC [id number] 12:48:00 Test Item Value Reference Range Interpretation Comments POC GLUCOSE (test code = POCGLU) 131 MG/DL 70-110 H POC ARTERIAL BLOOD [id number] 12:48:00 Test Item Value Reference Range Interpretation Comments POC ARTERIAL BLOOD GAS PH (test 7.406 7.35-7.45 N code = POCPHA) POC ARTERIAL BLOOD GAS PCO2 (test 43.4 mmHg 35.0-45 N code = [id number]) POC TCO2 ARTERIAL (test code = 28.6 POCTCO2) POC ARTERIAL BLOOD GAS PO2 (test 115.1 mmHg 80-100.0 H code = [id number]) POC HCO3 ARTERIAL (test code = 27.3 MMOL/L 22.0-26.0 H [id number]) POC BASE EXCESS (test code = 2.3 MMOL/L -4.0-4.0 N POCBEA) POC O2 SATURATION (test code = 98.5 % 90-100 N POCO2S) [id number] 12:48:00 Test Item Value Reference Range Interpretation Comments SODIUM (test code = NA/ABG) 138 MEQ/L 134-147 N [id number] 12:48:00 Test Item Value Reference Range Interpretation Comments POTASSIUM (test code = K/ABG) 4.0 MEQ/L 3.4-5.0 N [id number] 12:48:00 Test Item Value Reference Range Interpretation Comments CHLORIDE (test code = CL/ABG) MEQ/L 100-108 CREATININE [id number] 12:48:00 Test Item Value Reference Range Interpretation Comments CREATININE ABG (test code = CREAABG) mg/dL 0.8-1.3 [id number] 12:48:00 Test Item Value Reference Range Interpretation Comments HEMOGLOBIN (test code = HGB/ABG) G/DL 12.5-16.9 [id number] 12:48:00 Test Item Value Reference Range Interpretation Comments HEMATOCRIT (test code = HCT/ABG) 23 % 37.5-50.7 L POC IONIZED [id number] 12:48:00 Test Item Value Reference Range Interpretation Comments POC IONIZED CALCIUM (test code = 1.30 MMOL/L 1.12-1.32 N POCCA) POC LACTIC [id number] 12:48:00 Test Item Value Reference Range Interpretation Comments POC LACTIC ACID (test code = 0.6 mmol/l 0.9-1.7 L POCLAC) POC [id number] 12:48:00 Test Item Value Reference Range Interpretation Comments POC GLUCOSE (test code = POCGLU) 131 MG/DL 70-110 H POC ARTERIAL BLOOD [id number] 12:48:00 Test Item Value Reference Range Interpretation Comments POC ARTERIAL BLOOD GAS PH (test 7.406 7.35-7.45 N code = POCPHA) POC ARTERIAL BLOOD GAS PCO2 (test 43.4 mmHg 35.0-45 N code = EWSUNL5T) POC TCO2 ARTERIAL (test code = 28.6 POCTCO2) POC ARTERIAL BLOOD GAS PO2 (test 115.1 mmHg 80-100.0 H code = AYFJV9M) POC HCO3 ARTERIAL (test code = 27.3 MMOL/L 22.0-26.0 H AYLMXA6Y) POC BASE EXCESS (test code = 2.3 MMOL/L -4.0-4.0 N POCBEA) POC O2 SATURATION (test code = 98.5 % 90-100 N POCO2S) [id number] 12:48:00 Test Item Value Reference Range Interpretation Comments SODIUM (test code = NA/ABG) 138 MEQ/L 134-147 N [id number] 12:48:00 Test Item Value Reference Range Interpretation Comments POTASSIUM (test code = K/ABG) 4.0 MEQ/L 3.4-5.0 N [id number] 12:48:00 Test Item Value Reference Range Interpretation Comments CHLORIDE (test code = CL/ABG) MEQ/L 100-108 CREATININE [id number] 12:48:00 Test Item Value Reference Range Interpretation Comments CREATININE ABG (test code = CREAABG) mg/dL 0.8-1.3 [id number] 12:48:00 Test Item Value Reference Range Interpretation Comments HEMOGLOBIN (test code = HGB/ABG) 7.7 G/DL 12.5-16.9 L [id number] 12:48:00 Test Item Value Reference Range Interpretation Comments HEMATOCRIT (test code = HCT/ABG) 23 % 37.5-50.7 L POC IONIZED [id number] 12:48:00 Test Item Value Reference Range Interpretation Comments POC IONIZED CALCIUM (test code = 1.30 MMOL/L 1.12-1.32 N POCCA) POC LACTIC [id number] 12:48:00 Test Item Value Reference Range Interpretation Comments POC LACTIC ACID (test code = 0.6 mmol/l 0.9-1.7 L POCLAC) POC [id number] 12:48:00 Test Item Value Reference Range Interpretation Comments POC GLUCOSE (test code = POCGLU) 131 MG/DL 70-110 H POC ARTERIAL BLOOD [id number] 12:48:00 Test Item Value Reference Range Interpretation Comments POC ARTERIAL BLOOD GAS PH (test 7.406 7.35-7.45 N code = POCPHA) POC ARTERIAL BLOOD GAS PCO2 (test 43.4 mmHg 35.0-45 N code = TAIVLL1N) POC TCO2 ARTERIAL (test code = 28.6 POCTCO2) POC ARTERIAL BLOOD GAS PO2 (test 115.1 mmHg 80-100.0 H code = VQJQV6Q) POC HCO3 ARTERIAL (test code = 27.3 MMOL/L 22.0-26.0 H JOTNYL5P) POC BASE EXCESS (test code = 2.3 MMOL/L -4.0-4.0 N POCBEA) POC O2 SATURATION (test code = 98.5 % 90-100 N POCO2S) [id number] 12:48:00 Test Item Value Reference Range Interpretation Comments SODIUM (test code = NA/ABG) 138 MEQ/L 134-147 N [id number] 12:48:00 Test Item Value Reference Range Interpretation Comments POTASSIUM (test code = K/ABG) 4.0 MEQ/L 3.4-5.0 N [id number] 12:48:00 Test Item Value Reference Range Interpretation Comments CHLORIDE (test code = CL/ABG) 104 MEQ/L 100-108 N CREATININE [id number] 12:48:00 Test Item Value Reference Range Interpretation Comments CREATININE ABG (test code = CREAABG) mg/dL 0.8-1.3 [id number] 12:48:00 Test Item Value Reference Range Interpretation Comments HEMOGLOBIN (test code = HGB/ABG) 7.7 G/DL 12.5-16.9 L [id number] 12:48:00 Test Item Value Reference Range Interpretation Comments HEMATOCRIT (test code = HCT/ABG) 23 % 37.5-50.7 L POC IONIZED [id number] 12:48:00 Test Item Value Reference Range Interpretation Comments POC IONIZED CALCIUM (test code = 1.30 MMOL/L 1.12-1.32 N POCCA) POC LACTIC [id number] 12:48:00 Test Item Value Reference Range Interpretation Comments POC LACTIC ACID (test code = 0.6 mmol/l 0.9-1.7 L POCLAC) POC [id number] 12:48:00 Test Item Value Reference Range Interpretation Comments POC GLUCOSE (test code = POCGLU) 131 MG/DL 70-110 H POC ARTERIAL BLOOD [id number] 12:48:00 Test Item Value Reference Range Interpretation Comments POC ARTERIAL BLOOD GAS PH (test 7.406 7.35-7.45 N code = POCPHA) POC ARTERIAL BLOOD GAS PCO2 (test 43.4 mmHg 35.0-45 N code = WDZKRP2Y) POC TCO2 ARTERIAL (test code = 28.6 POCTCO2) POC ARTERIAL BLOOD GAS PO2 (test 115.1 mmHg 80-100.0 H code = TUJLR3T) POC HCO3 ARTERIAL (test code = 27.3 MMOL/L 22.0-26.0 H SSSZNB0L) POC BASE EXCESS (test code = 2.3 MMOL/L -4.0-4.0 N POCBEA) POC O2 SATURATION (test code = 98.5 % 90-100 N POCO2S) [id number] 12:48:00 Test Item Value Reference Range Interpretation Comments SODIUM (test code = NA/ABG) 138 MEQ/L 134-147 N [id number] 12:48:00 Test Item Value Reference Range Interpretation Comments POTASSIUM (test code = K/ABG) 4.0 MEQ/L 3.4-5.0 N [id number] 12:48:00 Test Item Value Reference Range Interpretation Comments CHLORIDE (test code = CL/ABG) 104 MEQ/L 100-108 N CREATININE [id number] 12:48:00 Test Item Value Reference Range Interpretation Comments CREATININE ABG (test code = 5.9 mg/dL 0.8-1.3 H CREAABG) [id number] 12:48:00 Test Item Value Reference Range Interpretation Comments HEMOGLOBIN (test code = HGB/ABG) 7.7 G/DL 12.5-16.9 L [id number] 12:48:00 Test Item Value Reference Range Interpretation Comments HEMATOCRIT (test code = HCT/ABG) 23 % 37.5-50.7 L POC IONIZED [id number] 12:48:00 Test Item Value Reference Range Interpretation Comments POC IONIZED CALCIUM (test code = 1.30 MMOL/L 1.12-1.32 N POCCA) POC LACTIC [id number] 12:48:00 Test Item Value Reference Range Interpretation Comments POC LACTIC ACID (test code = 0.6 mmol/l 0.9-1.7 L POCLAC) POC [id number] 12:48:00 Test Item Value Reference Range Interpretation Comments POC GLUCOSE (test code = POCGLU) 131 MG/DL 70-110 H PROTHROMBIN [id number] 05:58:00 Test Item Value Reference Range Interpretation [...] o prevent recurre nt infarct). 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 [facility] [id number] 00:40:00 Test Item Value Reference Range Interpretation Comments GLUBED (test code = 146 MG/DL 70-110 H Performe d by certified GLUBED) 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 [facility] BASIC METABOLIC [id number] 06:53:00 Test Item Value Reference Range Interpretation [...] be done morning of Heart CathCBC W/AUTO [id number] 06:48:00 Test Item Value Reference Range Interpretation [...] be done morning of Heart CathCBC W/AUTO [id number] 06:45:00 Test Item Value Reference Range Interpretation [...] COMMENTS: To be done morning of Heart [id number] 04:57:00 Test Item Value Reference Range Interpretation Comments GLUBED (test code = 122 MG/DL 70-110 H Performe d by certified GLUBED) 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 [facility] [id number] 23:53:00 Test Item Value Reference Range Interpretation Comments GLUBED (test code = 131 MG/DL 70-110 H Performe d by certified GLUBED) 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 [facility] [id number] 18:29:00 Test Item Value Reference Range Interpretation Comments GLUBED (test code = 130 MG/DL 70-110 H Performe d by certified GLUBED) 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 [facility] COVID 19 Asymptomatic IH [id number] 16:00:00 Test Item Value Reference Range Interpretation [...] y tests. COMMENTS: If not done this [id number] 12:07:00 Test Item Value Reference Range Interpretation Comments GLUBED (test code = 220 MG/DL 70-110 H Performe d by certified GLUBED) 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 [facility] [id number] 05:28:00 Test Item Value Reference Range Interpretation Comments GLUBED (test code = 142 MG/DL 70-110 H Performe d by certified GLUBED) 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 [facility] [id number] 05:25:00 Test Item Value Reference Range Interpretation Comments GLUBED (test code = 133 MG/DL 70-110 H Performe d by certified GLUBED) 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 [facility] [id number] 03:42:00 Test Item Value Reference Range Interpretation Comments POTASSIUM (test code = K) 4.1 mEq/L 3.4-5.0 N HGB [id number] 03:38:00 Test Item Value Reference Range Interpretation Comments HEMOGLOBIN (test code = HGB) 8.6 g/dL 12.5-16.9 L HEMATOCRIT (test code = HCT) 28.5 % 37.5-50.7 L [id number] 20:37:00 Test Item Value Reference Range Interpretation Comments GLUBED (test code = 120 MG/DL 70-110 H Performe d by certified GLUBED) 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 [facility] HGB [id number] 11:12:00 Test Item Value Reference Range Interpretation Comments HEMOGLOBIN (test code = HGB) 8.7 g/dL 12.5-16.9 L HEMATOCRIT (test code = HCT) 27.6 % 37.5-50.7 L [id number] 11:09:00 Test Item Value Reference Range Interpretation Comments POTASSIUM (test code = K) 3.9 mEq/L 3.4-5.0 N [id number] 06:06:00 Test Item Value Reference Range Interpretation Comments GLUBED (test code = 109 MG/DL 70-110 N Performe d by certified GLUBED) 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 [facility] [id number] 00:45:00 Test Item Value Reference Range Interpretation Comments GLUBED (test code = 155 MG/DL 70-110 H Performe d by certified GLUBED) 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 [facility] - [place] ANGIO [id number] 18:28:00 [facility] [place] [place] : 1935 Sex: M Name: RADHA BLANCO [facility] [place] : 1935 Age/S: 84 / M [address] [place] [address] Blvd Unit #: [id number] Loc: [place] [address] Phys: Madiha Manjarrez [facility] Acct: [id number] Dis Date: Status: ADM IN PHONE #: [phone] Exam Date: 05/18/2020 163 FAX #: [phone] Reason: PRE TAVR EXAMS: CPT CODE: [id number] CT ANGIO CHEST 68644 CHEST, ABDOMEN AND PELVIS CT ANGIOGRAM WITH [...] 1 Signed Report (CONTINUED) Name: RADHA BLANCO [facility] :1935 Age/S: 84 / M [address] [place] [address] Blvd Unit #: [id number] Loc: [place] [address] Phys: Madiha Manjarrez [facility] Acct: [id number] Dis Date: Status: ADM IN PHONE #: [phone] Exam Date: 05/18/2020 1631 FAX #: [phone] Reason: PRE TAVR EXAMS: CPT CODE: [id number] CT ANGIO CHEST 23338 <Continued> inferior lingula. Calcified granuloma right lower [...] of the left abdomen are beyond the vibft-yw-zawv. No focal liver lesion. Fatty involutional change [...] 2 Signed Report (CONTINUED) Name: RADHA BLANCO [facility] : 1935 Age/S:84 / M [address] [place] [address] Blvd Unit #: [id number] Loc: [place] [address] Phys: Madiha Manjarrez Acct: [id number] Dis Date: Status: ADM IN PHONE #: [phone] Exam Date: 05/18/2020 1631 FAX #: [phone] Reason: PRE TAVR EXAMS: CPT CODE: [id number] CT ANGIO CHEST 26552 <Continued> cyst. No further imaging is required. 8. 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 Discitis osteomyelitis in the differential to be correlated with clinical and laboratory findings with further imaging as warranted. SL: [id number] at 1828 Reported and signed by: Jaleel Pierce M.D. CC: aMdiha Manjarrez; Navjot Cruz MD; rAis Ash MD Technologist:RT Blaine(R) CTDI: DLP: Trnscb Date/Time: 05/18/2020 (1827) [email or web address] Orig Print D/T: S: 05/18/2020 (033) PAGE 3 Signed Report- CTA HEART W CN ART/POGWTA1401-30-30 18:28:00 [facility] : 1935 Sex: M Name: RADHA BLANCO [facility] : 1935 Age/S: 84 / M [address] [place] [address] Blvd Unit #: [id number] Loc: [place] [address] Phys: Madiha Manjarrez [facility] Acct: [id number] Dis Date: Status: ADM IN PHONE #: [phone] Exam Date: 05/18/2020 1631 FAX #: [phone] Reason: brittani for Exam: PRE TAVR EXAMS: CPT CODE: [id number] CTA HEART W CN ART/GRAFTS 76259 CHEST, ABDOMEN AND PELVIS CT ANGIOGRAM WITH [...] 1 Signed Report (CONTINUED) Name: RADHA BLANCO [facility] :1935 Age/S: 84 / M [address] [place] [address] Blvd Unit #: [id number] Loc: [place] [address] Phys: Madiha Manjarrez [facility] Acct: [id number] Dis Date: Status: ADM IN PHONE #: [phone] Exam Date: 05/18/2020 1631 FAX #: [phone] Reason: brittani for Exam: PRE TAVR EXAMS: CPT CODE: [id number] CTA HEART W CN ART/GRAFTS 51374 <Continued> inferior lingula. Calcified granuloma right lower [...] of the left abdomen are beyond the wsshb-co-olyc. No focal liver lesion. Fatty involutional change [...] 2 Signed Report (CONTINUED) Name: RADHA BLANCO [facility] : 1935 Age/S:84 / M [address] [place], [place] [address]vd Unit #: [id number] Loc: [place] [address] Phys: Madiha Manjarrez [facility] Acct: [id number] Dis Date: Status: ADM IN PHONE #: [phone] Exam Date: 05/18/2020 1631 FAX #: [phone] Reason: brittani for Exam: PRE TAVR EXAMS: CPT CODE: [id number] CTA HEART W CN ART/GRAFTS 45081 <Continued> cyst. No further imaging is required. 8. 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 Discitis osteomyelitis in the differential to be correlated with clinical and laboratory findings with further imaging as warranted. SL: [id number] at 1828 Reported and signed by: Jaleel Pierce M.D. CC: Madiha Manjarrez; Navjot Cruz MD; Aris Ash MD Technologist:Cory Singh, RT(R) CTDI: DLP: Trnscb Date/Time: 05/18/2020 (1827) t.AARONR.KWL Orig Print D/T: S: 05/18/2020 (183) PAGE 3 Signed Report- CTA ABD PEL W [id number] 18:28:00 [facility] : 1935 Sex: M Name: RADHA BLANCO [facility] : 1935 Age/S: 84 / M [address] [place] [address] Unit #: [id number] Loc: [place] [address] Phys: Madiha Manjarrez Acct: [id number] Dis Date: Status: ADM IN PHONE #: [phone] Exam Date: 05/18/2020 1631 FAX #: [phone] Reason: PRE TAVR EXAMS: CPT CODE: [id number] CTA ABD PEL W CONT 70250 CHEST, ABDOMEN AND PELVIS CT ANGIOGRAM WITH [...] 1 Signed Report (CONTINUED) Name: RADHA BLANCO [facility] :1935 Age/S: 84 / M [address] [place] [address] Blvd Unit #: [id number] Loc: [place] [address] Phys: Madiha Manjarrez [facility] Acct: [id number] Dis Date: Status: ADM IN PHONE #: [phone] Exam Date: 05/18/2020 1631 FAX #: [phone] Reason: PRE TAVR EXAMS: CPT CODE: [id number] CTA ABD PEL W CONT 98302 <Continued> inferior lingula. Calcified granuloma right lower [...] of the left abdomen are beyond the hzdwc-qp-eokg. No focal liver lesion. Fatty involutional change [...] 2 Signed Report (CONTINUED) Name: RADHA BLANCO [facility] : 1935 Age/S:84 / M [address] [place] [address] Blvd Unit #: [id number] Loc: [place] [address] Phys: Madiha Manjarrez RN [facility] Acct: [id number] Dis Date: Status: ADM IN PHONE #: [phone] Exam Date: 05/18/2020 1631 FAX #: [phone] Reason: PRE TAVR EXAMS: CPT CODE: [id number] CTA ABD PEL W CONT 46525 <Continued> cyst. No further imaging is required. 8. 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 Discitis osteomyelitis in the differential to be correlated with clinical and laboratory findings with further imaging as warranted. SL: [id number] at 1828 Reported and signed by: Jaleel Pierce M.D. 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 [facility] - DUP EXTRACRANIAL [id number] 16:59:00 [facility] : 1935 Sex: M Name: RADHA BLANCO [facility] : 1935 Age/S: 84 / M [address] [place] [address] Blvd Unit #: [id number] Loc: [place] [address] Phys: Madiha Manjarrez Acct: [id number] Dis Date: Status: ADM IN PHONE #: [phone] Exam Date: 05/18/2020 1650 FAX #: [phone] Reason: PRE TAVR EXAMS: CPT CODE: [id number] DUP EXTRACRANIAL DEX 33730 STUDY: - DUP EXTRACRANIAL DEX 05/18/2020 1:30 PM Ordering Physician: Madiha Manjarrez Patient Name: RADHA BLANCO MR: [id number] : 1935; Age: 84 years y/o Male [...] 1 Signed Report (CONTINUED) Name: RADHA BLANCO [facility] : 1935 Age/S: 84 / M [address] [place] [address] Unit #: [id number] Loc: [place] [address] Phys: SaranyaalethaMadiha BOWDEN Acct: [id number] Dis Date: Status: ADM IN PHONE #: [phone] Exam Date: 05/18/2020 1650 FAX #: [phone] Reason: PRE TAVR EXAMS: CPT CODE: [id number] DUP EXTRACRANIAL DEX 93658 <Continued> 2.6 x 2.7 x 2.9 cm. Dedicated thyroid ultrasound is recommended. Consensus panel Doppler US criteria for diagnosis of ICA stenosis: Stenosis (%) ICA PSV (cm/sec) ICA/CCA ratio ------ <50<125 <2.0 50-69 125-230 2.0-4.0 >70 but less than >230 >4.0near occlusion Near occlusion High, low, or Variable undetectable SL: [id number] at 1659 Reported and signed by: Donnell Naranjo D.O. CC: Madiha Manjarrez; Navjot Cruz MD; Aris Ash MD Technologist: Gretel Honeycutt RDMS(AB)(RCT) Trnscb Date/Time: 05/18/2020 (1658) t.SDR.MP37 Orig Print D/T: S: 05/18/2020 (7518) Probe: PAGE 2 Signed [id number] 16:11:00 Test Item Value Reference Range Interpretation Comments GLUBED (test code = 151 MG/DL 70-110 H Performe d by certified GLUBED) 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 [facility] LIPOPROTEIN [id number] 14:33:00 Test Item Value Reference Range Interpretation Comments LIPOPROTEIN LDL 74.8 mg/dL 0-100 N <100 OPT [id number] (test code = LDL) NEAR OPTIM AL/ABOVE VEEGSIP684-668 MPFAURMCBF426-0 89 HIGH>WA=265 VE RY HIGH*Guidelines provided by the National Cholesterol EducationProgra m Adult Treatment Panel III [id number] 14:07:00 Test Item Value Reference Range Interpretation [...] may fam y by method. RENAL FUNCTION [id number] 11:46:00 Test Item Value Reference Range Interpretation [...] MG/DL 2.5-4.9 N = PHOS) CBC W/AUTO [id number] 07:15:00 Test Item Value Reference Range Interpretation [...] DIFF REQUIRED (test code NO = MDIFF) [id number] 06:07:00 Test Item Value Reference Range Interpretation Comments GLUBED (test code = 126 MG/DL 70-110 H Performe d by certified GLUBED) 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 [facility] [id number] 00:31:00 Test Item Value Reference Range Interpretation Comments GLUBED (test code = 116 MG/DL 70-110 H Performe d by certified GLUBED) 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 [facility] [id number] 18:56:00 Test Item Value Reference Range Interpretation Comments GLUBED (test code = 142 MG/DL 70-110 H Performe d by certified GLUBED) 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 [facility] [id number] 14:43:00 Test Item Value Reference Range Interpretation Comments GLUBED (test code = 155 MG/DL 70-110 H Performe d by certified GLUBED) 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 [facility] [id number] 14:43:00 Test Item Value Reference Range Interpretation Comments GLUBED (test code = 153 MG/DL 70-110 H Performe d by certified GLUBED) 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 [facility] [id number] 12:49:00 Test Item Value Reference Range Interpretation Comments GLUBED (test code = 147 MG/DL 70-110 H Performe d by certified GLUBED) 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 [facility] [id number] 10:34:00 Test Item Value Reference Range Interpretation Comments GLUBED (test code = 127 MG/DL 70-110 H Performe d by certified GLUBED) 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 [facility] [id number] 08:02:00 Test Item Value Reference Range Interpretation Comments GLUBED (test code = 118 MG/DL 70-110 H Performe d by certified GLUBED) 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 [facility] CBC W/AUTO [id number] 07:37:00 Test Item Value Reference Range Interpretation [...] MDIFF) COMMENTS: PREOP PROTOCOL- XR CHEST 1 [id number] 07:09:00 [facility] : 1935 Sex: M FAX: Navjot Byrd [phone] [place]: St: [facility] FAX: Lisandra Tracy HEATHER [phone] FAX: Aris Davislisandra [phone] Name: RADHA BLANCO [facility] : 1935 Age/S: 84/M [address] [place] [address] Unit #: [id number] Loc: G.[address] [place] [address] Phys: DemarcusLidya [facility] Acct: [id number] Dis Date: Status: ADM IN PHONE #: [phone] Exam Date: 05/16/2020829 FAX #: [phone] Reason: preop EXAMS: CPT CODE: [id number] XR CHEST 1 V 39392 Chest single view 05/16/2020 HISTORY: Preoperative exam [...] effusion. 2. Small left base atelectasis/infiltrate. SL: [id number] t 0709 Reported and signed by: Brock Welsh M.D. 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 YES HEMATOCRIT (test code = 19.5 % 37.5-50.7 L HCT) HGB [id number] 20:14:00 Test Item Value Reference Range Interpretation Comments HEMOGLOBIN (test code = 5.4 g/dL 12.5-16.9 LL Crit ical result called HGB) to SAMINA Haider G.LAB.PTP at 05/16/20Nurse r ead back resut and tech confirmed it's correct? Y HEMATOCRIT (test code = 16.7 % 37.5-50.7 LL Crit ical result called HCT) to SAMINA Haider G.LAB.PTP at 05/16/20Nurse r ead back result and tech confirmed it's correct? Y [id number] 13:32:00 Test Item Value Reference Range Interpretation Comments GLUBED (test code = 130 MG/DL 70-110 H Performe d by certified GLUBED) 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 [facility] CBC W/AUTO [id number] 09:13:00 Test Item Value Reference Range Interpretation Comments WHITE BLOOD CELL (test 9.3 x10 3/uL 4.5-11.0 N code = WBC) RED BLOOD CELL (test 1.67 x10 6/uL 4.00-5.60 L code = RBC) HEMOGLOBIN (test code 5.2 g/dL 12.5-16.9 LL Critic al result = HGB) called to TRIED CALLING 7HT MAN Y TIMES/NOANSWERb y G.LAB.DVW at 12 0705/16/20Ramsesurse r ead back resut and tech confirmed it's correct? Y HEMATOCRIT (test code 16.2 % 37.5-50.7 LL Critic al result = HCT) called to TRIED CALLING 5HT MAN Y TIMES/NOANSWERb y G.LAB.DVW at 12 0805/16/20Ramsesurse r ead back result and tech confirmed [...] NO (test code = MDIFF) BASIC METABOLIC [id number] 07:35:00 Test Item Value Reference Range Interpretation [...] mg/dL 8.0-10.5 N CA) TOTAL IRON BINDING [id number] 07:35:00 Test Item Value Reference Range Interpretation Comments SERUM IRON (test code = IRON) 71 mcg/dL 35-150 N TOTAL IRON BINDING CAPACITY (test 168 mcg/dL 260-445 L code = TIBC) UIBC (test code = UIBC) 97 mcg/dL IRON SATURATION (test code = 42.3 % 14-34 H FESAT) [id number] 07:35:00 Test Item Value Reference Range Interpretation Comments FERRITIN (test code = KYLE) 456.4 ng/mL 23.9-336.2 H PROTHROMBIN [id number] 06:25:00 Test Item Value Reference Range Interpretation [...] o prevent recurre nt infarct). THROMBOPLASTIN TIME [id number] 06:25:00 Test Item Value Reference Range Interpretation Comments THROMBOPLASTIN TIME 31.0 Seconds 25.0-39.5 N Ther apeutic PARTIAL (test code = Range: 50.4 - 88.3 PTT) Seconds Effective 07/13/2018 PROTHROMBIN [id number] 06:23:00 Test Item Value Reference Range Interpretation [...] o prevent recurrent infar ct). THROMBOPLASTIN TIME [id number] 06:23:00 Test Item Value Reference Range Interpretation Comments THROMBOPLASTIN TIME PARTIAL (test Seconds 25.0-39.5 code = PTT) [id number] 02:15:00 Test Item Value Reference Range Interpretation Comments GLUBED (test code = 161 MG/DL 70-110 H Performe d by certified GLUBED) 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 [facility] [id number] 21:57:00 Test Item Value Reference Range Interpretation Comments GLUBED (test code = 86 MG/DL 70-110 N Performe d by certified GLUBED) 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 [facility] [id number] 17:59:00 Test Item Value Reference Range Interpretation Comments GLUBED (test code = 119 MG/DL 70-110 H Performe d by certified GLUBED) 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 [facility] COVID 19 Asymptomatic IH [id number] 16:36:00 Test Item Value Reference Range Interpretation [...] y tests. COMMENTS: If not done this [id number] 11:45:00 Test Item Value Reference Range Interpretation Comments GLUBED (test code = 126 MG/DL 70-110 H Performe d by certified GLUBED) 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 [facility] CBC W/AUTO [id number] 07:38:00 Test Item Value Reference Range Interpretation Comments WHITE BLOOD CELL (test 8.4 x10 3/uL 4.5-11.0 N code = WBC) RED BLOOD CELL (test 1.94 x10 6/uL 4.00-5.60 L code = RBC) HEMOGLOBIN (test code 6.1 g/dL 12.5-16.9 LL Critic al result = HGB) called to Vitaly KNOTT.PJ at 073 3 05/15/20Nurse ronda patrick back resut and tech confirmed it's [...] NO (test code = MDIFF) BASIC METABOLIC [id number] 07:13:00 Test Item Value Reference Range Interpretation [...] code = 10.2 mg/dL 8.0-10.5 N CA) [id number] 00:14:00 Test Item Value Reference Range Interpretation Comments GLUBED (test code = 165 MG/DL 70-110 H Performe d by certified GLUBED) 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 [facility] [id number] 20:05:00 Test Item Value Reference Range Interpretation Comments GLUBED (test code = 151 MG/DL 70-110 H Performe d by certified GLUBED) 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 [facility] [id number] 13:13:00 Test Item Value Reference Range Interpretation Comments GLUBED (test code = 125 MG/DL 70-110 H Performe d by certified GLUBED) 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 [facility] [id number] 06:11:00 Test Item Value Reference Range Interpretation Comments GLUBED (test code = 142 MG/DL 70-110 H Performe d by certified GLUBED) 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 [facility] [id number] 00:33:00 Test Item Value Reference Range Interpretation Comments GLUBED (test code = 157 MG/DL 70-110 H Performe d by certified GLUBED) 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 [facility] [id number] 18:54:00 Test Item Value Reference Range Interpretation Comments GLUBED (test code = 174 MG/DL 70-110 H Performe d by certified GLUBED) 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 [facility] [id number] 14:56:00 Test Item Value Reference Range Interpretation Comments GLUBED (test code = 140 MG/DL 70-110 H Performe d by certified GLUBED) 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 [facility] [id number] 10:09:00 Test Item Value Reference Range Interpretation Comments GLUBED (test code = 126 MG/DL 70-110 H Performe d by certified GLUBED) 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 [facility] BASIC METABOLIC [id number] 08:57:00 Test Item Value Reference Range Interpretation [...] 10.0 mg/dL 8.0-10.5 N CA) CBC W/AUTO [id number] 07:37:00 Test Item Value Reference Range Interpretation [...] DIFF REQUIRED (test code NO = MDIFF) [id number] 05:54:00 Test Item Value Reference Range Interpretation Comments GLUBED (test code = 128 MG/DL 70-110 H Performe d by certified GLUBED) 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 [facility]2021-02-14 00:44:00 Test Item Value Reference Range Interpretation Comments GLUBED (test code = 127 MG/DL 70-110 H Performe d by certified GLUBED) 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 [facility] [id number] 19:50:00 Test Item Value Reference Range Interpretation Comments GLUBED (test code = 119 MG/DL 70-110 H Performe d by certified GLUBED) 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 [facility] [id number] 12:20:00 Test Item Value Reference Range Interpretation Comments GLUBED (test code = 142 MG/DL 70-110 H Performe d by certified GLUBED) 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 [facility] [id number] 05:37:00 Test Item Value Reference Range Interpretation Comments GLUBED (test code = 116 MG/DL 70-110 H Performe d by certified GLUBED) 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 [facility] [id number] 01:24:00 Test Item Value Reference Range Interpretation Comments GLUBED (test code = 133 MG/DL 70-110 H Performe d by certified GLUBED) 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 [facility] [id number] 18:08:00 Test Item Value Reference Range Interpretation Comments GLUBED (test code = 127 MG/DL 70-110 H Performe d by certified GLUBED) 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 [facility] [id number] 15:12:00 Test Item Value Reference Range Interpretation Comments GLUBED (test code = 155 MG/DL 70-110 H Performe d by certified GLUBED) 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 [facility] [id number] 13:25:00 Test Item Value Reference Range Interpretation Comments GLUBED (test code = 175 MG/DL 70-110 H Performe d by certified GLUBED) 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 [facility] [id number] 12:55:00 Test Item Value Reference Range Interpretation Comments GLUBED (test code = 122 MG/DL 70-110 H Performe d by certified GLUBED) 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 [facility] [id number] 08:17:00 Test Item Value Reference Range Interpretation Comments GLUBED (test code = 167 MG/DL 70-110 H Performe d by certified GLUBED) 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 [facility] CBC W/AUTO [id number] 08:13:00 Test Item Value Reference Range Interpretation [...] (test code NO = MDIFF) BASIC METABOLIC [id number] 07:55:00 Test Item Value Reference Range Interpretation [...] code = 9.2 mg/dL 8.0-10.5 N CA) [id number] 06:03:00 Test Item Value Reference Range Interpretation Comments GLUBED (test code = 127 MG/DL 70-110 H Performe d by certified GLUBED) 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 [facility] HGB [id number] 17:39:00 Test Item Value Reference Range Interpretation Comments HEMOGLOBIN (test code = HGB) 8.5 g/dL 12.5-16.9 L HEMATOCRIT (test code = HCT) 28.3 % 37.5-50.7 L [id number] 13:09:00 Test Item Value Reference Range Interpretation Comments GLUBED (test code = 140 MG/DL 70-110 H Performe d by certified GLUBED) 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 [facility] SURGICAL PATH [id number] 08:30:00 Test Item Value Reference Range Interpretation Comments SURGICAL PATH SPECIMENS (test code = SURG) RUN DATE: 05/10/20 [facility] *LIVE* PAGE 1 RUN TIME: 829 Specimen Inquiry RUN USER: INTERFACE JASMYN ENT: RADHA BLANCO #: [id number] LOC: KIRSTIE U #: [id number] AGE/SX: 84/M ROOM: [facility] RE05/06/20REG DR: Navjot Cruz : 37 BED: 1 DIS: STATUS: ADM IN TLOC: SPEC #: [id number] RECD: 05/07/20 STATUS: ANGEL REQ #: [id number] KISHA: 05/07/[address]: Navjot Cruz MD ENTERED: 05/09/20 SP TYPE: SURG SPEC OTHR DR: Self Referred Carlos Bai MD, Brent J MD Faust, Eric Joseph MD Gowda, Jeevan Chaythan MD Shah, Rakesh MDORDERED: GROSS AND MICRO CODES: [id number] - STOMACH, NOS [id number] - SMALL INTESTINE COPIES TO: Self Referred Navjot Cruz MD [address] [facility] [address] [place] [address] Carlos Bai MD [address] [place] [address] Gordon Alejandro MD [address] [place], [place] [id number] Orlando Patel MD [address] [facility] [address] [place] [address] Aris Ash MD [address] [facility] [address] [place] [address] Guanako Beatncourt MD [address] [facility] [address] [address] CONTINUED ON NEXT PAGE RUN DATE: 05/10/20 [facility] *LIVE* PAGE 2 RUN TIME: 829 Specimen Inquiry RUN USER: INTERFACE SPEC #: [id number] PATIENT: RADHA BLANCO #[id number] (Continued) ------- PROCEDURES: GROSS AND MICRO (Incomplete) [...] CONTINUED ON NEXT PAGE RUN DATE: 05/10/20 [facility] *LIVE* PAGE 3 RUN TIME: 0830 Specimen Inquiry RUN USER: INTERFACE SPEC #: [id number] PATIENT: RADHA BLANCO #[id number] (Continued) ------- POST-OP DIAGNOSIS Duodenal bulb ulcer, severe duodenitis, gastritis PRE-OP DIAGNOSIS Anemia -- Signed SIGNATURE ON FILE Michael López MD 05/10/20 0830 END OF REPORT BASIC METABOLIC [id number] 07:39:00 Test Item Value Reference Range Interpretation [...] = 9.7 mg/dL 8.0-10.5 N CA) HGB [id number] 07:11:00 Test Item Value Reference Range Interpretation Comments HEMOGLOBIN (test code = HGB) 8.3 g/dL 12.5-16.9 L HEMATOCRIT (test code = HCT) 26.9 % 37.5-50.7 L [id number] 05:16:00 Test Item Value Reference Range Interpretation Comments GLUBED (test code = 117 MG/DL 70-110 H Performe d by certified GLUBED) 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 [facility] [id number] 05:16:00 Test Item Value Reference Range Interpretation Comments GLUBED (test code = 112 MG/DL 70-110 H Performe d by certified GLUBED) 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 [facility] HGB [id number] 18:25:00 Test Item Value Reference Range Interpretation Comments HEMOGLOBIN (test code = HGB) 8.2 g/dL 12.5-16.9 L HEMATOCRIT (test code = HCT) 26.6 % 37.5-50.7 L [id number] 13:25:00 Test Item Value Reference Range Interpretation Comments GLUBED (test code = 140 MG/DL 70-110 H Performe d by certified GLUBED) 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 [facility] BASIC METABOLIC [id number] 11:12:00 Test Item Value Reference Range Interpretation [...] DTO RISK LEVELS RECOM MENDED BY THE NATL.CHUNA RT, LUNG, AND BLOOD INST. HDL CHOLESTEROL 26.9 mg/dL 32-72 L (test code = HDL) LIPOPROTEIN LDL 68.0 mg/dL 0-100 N <100 OPT [id number] (test code = LDL) NEAR OPTI MAL/ABOVE [id number] 89 HIGH>DJ=288 VE RY HIGH*Guidelines provided by the [facility] Adult [facility] Panel III CBC W/AUTO [id number] 11:00:00 Test Item Value Reference Range Interpretation [...] DIFF REQUIRED (test code NO = MDIFF) [id number] 05:38:00 Test Item Value Reference Range Interpretation Comments GLUBED (test code = 116 MG/DL 70-110 H Performe d by certified GLUBED) 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 [facility] [id number] 00:32:00 Test Item Value Reference Range Interpretation Comments GLUBED (test code = 139 MG/DL 70-110 H Performe d by certified GLUBED) 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 [facility] [id number] 17:07:00 Test Item Value Reference Range Interpretation Comments GLUBED (test code = 128 MG/DL 70-110 H Performe d by certified GLUBED) 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 [facility] [id number] 16:31:00 Test Item Value Reference Range Interpretation Comments GLUBED (test code = 147 MG/DL 70-110 H Performe d by certified GLUBED) 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 [facility] HGB [id number] 13:12:00 Test Item Value Reference Range Interpretation Comments HEMOGLOBIN (test code = HGB) 7.6 g/dL 12.5-16.9 L HEMATOCRIT (test code = HCT) 25.0 % 37.5-50.7 L HEPATITIS [id number] 06:11:00 Test Item Value Reference Range Interpretation Comments AB HEPATITIS B 20.6 mIU/mL See_Comment Status of SURFACE (test code Immunity = HBSAB) Anti-H Bs Level --- I ncon sistent with Immunity 0.0 - 9.9Consistent w ith Immunity >9.9Performed A t: HD [facility] [address] [place], [place] [id number] Flip Landry MD Ph:[phone] [Automated mess age] The system [employer] generated this result transmit elizabeth reference range : Immunity>9.9. T he reference range was not used to interpret this result as normal/abnormal . AG HEPATITIS B NON REACTIVE NonReactive SURFACE (test code INDEX = HBSAG) AB HEPATITIS B NON REACTIVE NON REACT. CORE IGM (test INDEX code = HBCMAB) COMMENTS: At start of hemodialysisACUTE HEPATITIS [id number] 06:11:00 Test Item Value Reference Range Interpretation Comments AB HEPATITIS A IGM (test NON REACTIVE INDEX NON REACT. code = HAVMAB) AB HEPATITIS C (test code NON REACTIVE INDEX NON REACT. = HCVAB) COMMENTS: At start of hemodialysisBASIC METABOLIC [id number] 05:25:00 Test Item Value Reference Range Interpretation [...] code = 9.4 mg/dL 8.0-10.5 N CA) [id number] 05:25:00 Test Item Value Reference Range Interpretation Comments PHOSPHOROUS (test code = PHOS) 3.9 MG/DL 2.5-4.9 N [id number] 05:25:00 Test Item Value Reference Range Interpretation Comments MAGNESIUM (test code = MAG) 1.59 mg/dL 1.80-2.40 L CALCIUM [id number] 05:25:00 Test Item Value Reference Range Interpretation Comments CALCIUM IONIZED (test code = JONA) 1.25 MMOL/L 1.12-1.32 N BASIC METABOLIC [id number] 05:10:00 Test Item Value Reference Range Interpretation [...] CALCIUM (test code = CA) mg/dL 8.0-10.5 [id number] 05:10:00 Test Item Value Reference Range Interpretation Comments PHOSPHOROUS (test code = PHOS) MG/DL 2.5-4.9 [id number] 05:10:00 Test Item Value Reference Range Interpretation Comments MAGNESIUM (test code = MAG) mg/dL 1.80-2.40 CALCIUM [id number] 05:10:00 Test Item Value Reference Range Interpretation Comments CALCIUM IONIZED (test code = JONA) 1.25 MMOL/L 1.12-1.32 N CBC W/AUTO [id number] 05:08:00 Test Item Value Reference Range Interpretation [...] DIFF REQUIRED (test code NO = MDIFF) [id number] 00:22:00 Test Item Value Reference Range Interpretation Comments GLUBED (test code = 82 MG/DL 70-110 N Performe d by certified GLUBED) 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 [facility] HGB [id number] 20:32:00 Test Item Value Reference Range Interpretation Comments HEMOGLOBIN (test code = HGB) 7.3 g/dL 12.5-16.9 L HEMATOCRIT (test code = HCT) 23.1 % 37.5-50.7 L [id number] 16:55:00 Test Item Value Reference Range Interpretation Comments GLUBED (test code = 136 MG/DL 70-110 H Performe d by certified GLUBED) 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 [facility] HGB [id number] 14:16:00 Test Item Value Reference Range Interpretation Comments HEMOGLOBIN (test code = HGB) 7.2 g/dL 12.5-16.9 L HEMATOCRIT (test code = HCT) 23.0 % 37.5-50.7 L [id number] 14:09:00 Test Item Value Reference Range Interpretation Comments GLUBED (test code = 151 MG/DL 70-110 H Performe d by certified GLUBED) 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 [facility] - XR CHEST 1 [id number] 08:55:00 [facility] : 1935 Sex: M FAX: Navjot Byrd [phone] [place]: St: ADM FAX: Gordon Alejandro MD FAX: Aris Davis [phone] Name: RADHA BLANCO [place] : 1935 Age/S: 84/M [address] [place] [address] Blvd Unit #: [id number] Loc: Rose.[address] [place] [address] Phys: Gordon Alejandro MD Acct: [id number] Dis Date: Status: ADM IN PHONE #: [phone] Exam Date: 05/07/2020847 FAX #: [phone] Reason: pulmonary edema EXAMS: CPT CODE: [id number] XR CHEST 1 V 60752 PROCEDURE: CHEST SINGLE VIEW INDICATION: pulmonary edema; [...] with adjacent atelectasis versus airspace disease. SL: [id number] at 0855 Reported and signed by: Jaleel Pierce M.D. CC: Navjot Cruz MD; Gordon Alejandro MD; Aris Ash MD Technologist: Dania FuentesRT(R) Trnscrd Date/Time/By: 05/07/2020 (0865): By: Josefa Orig Print D/T: S: 05/07/2020 (9313) PAGE 1 Signed ReportCOMPREHENSIVE METABOLIC [id number] 05:03:00 Test Item Value Reference Range Interpretation [...] TOTAL (test code = ALKP) RENAL FUNCTION [id number] 05:03:00 Test Item Value Reference Range Interpretation Comments PHOSPHOROUS (test code = PHOS) 4.8 MG/DL 2.5-4.9 N [id number] 05:03:00 Test Item Value Reference Range Interpretation Comments MAGNESIUM (test code = MAG) 2.00 mg/dL 1.80-2.40 N CALCIUM [id number] 05:03:00 Test Item Value Reference Range Interpretation Comments CALCIUM IONIZED (test code = JONA) 1.38 MMOL/L 1.12-1.32 H COMPREHENSIVE METABOLIC [id number] 04:54:00 Test Item Value Reference Range Interpretation [...] TOTAL (test code = ALKP) RENAL FUNCTION [id number] 04:54:00 Test Item Value Reference Range Interpretation Comments PHOSPHOROUS (test code = PHOS) 4.8 MG/DL 2.5-4.9 N [id number] 04:54:00 Test Item Value Reference Range Interpretation Comments MAGNESIUM (test code = MAG) 2.00 mg/dL 1.80-2.40 N CALCIUM [id number] 04:54:00 Test Item Value Reference Range Interpretation Comments CALCIUM IONIZED (test code = JONA) MMOL/L 1.12-1.32 CBC W/AUTO [id number] 04:50:00 Test Item Value Reference Range Interpretation [...] REQUIRED (test code NO = MDIFF) PROTHROMBIN [id number] 04:48:00 Test Item Value Reference Range Interpretation [...] o prevent recurre nt infarct). CBC W/AUTO [id number] 04:48:00 Test Item Value Reference Range Interpretation [...] DIFF REQUIRED (test code = MDIFF) LACTIC [id number] 22:59:00 Test Item Value Reference Range Interpretation Comments LACTIC ACID (test code = LACT) 1.1 mmol/L 0.4-1.9 N CALCIUM [id number] 22:56:00 Test Item Value Reference Range Interpretation Comments CALCIUM IONIZED (test code = JONA) 1.27 MMOL/L 1.12-1.32 N CBC W/O [id number] 21:40:00 Test Item Value Reference Range Interpretation [...] code 10.4 fL 7.0-9.0 H = MPV) [id number] 21:40:00 Test Item Value Reference Range Interpretation Comments GLUBED (test code = 149 MG/DL 70-110 H Performe d by certified GLUBED) 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 (test code = HBCMAB) COMMENTS: At start of hemodialysisACUTE HEPATITIS [id number] 18:32:00 Test Item Value Reference Range Interpretation Comments AB HEPATITIS A IGM (test NON REACTIVE INDEX NON REACT. code = HAVMAB) AB HEPATITIS C (test code NON REACTIVE INDEX NON REACT. = HCVAB) COMMENTS: At start of hemodialysisCOVID 19 Asymptomatic IH [id number] 13:14:00 Test Item Value Reference Range Interpretation [...] COMMENTS: If not done this admissionCBC W/O [id number] 12:41:00 Test Item Value Reference Range Interpretation [...] code 10.7 fL 7.0-9.0 H = MPV) [id number] 12:34:00 Test Item Value Reference Range Interpretation Comments GLUBED (test code = 134 MG/DL 70-110 H Performe d by certified GLUBED) 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 [facility] PROTHROMBIN [id number] 12:28:00 Test Item Value Reference Range Interpretation [...] o prevent recurre nt infarct). BASIC METABOLIC [id number] 12:26:00 Test Item Value Reference Range Interpretation [...] 10.0 mg/dL 8.0-10.5 N CA) HEPATIC FUNCTION [id number] 12:26:00 Test Item Value Reference Range Interpretation [...] 54 IUnit/L 20-125 N code = ALKP) [id number] 12:26:00 Test Item Value Reference Range Interpretation Comments MAGNESIUM (test code = MAG) 2.14 mg/dL 1.80-2.40 N CBC W/AUTO [id number] 10:25:00 Test Item Value Reference Range Interpretation [...] (test NO code = MDIFF) CBC W/AUTO [id number] 10:17:00 Test Item Value Reference Range Interpretation [...] MANUAL DIFF REQUIRED (test code = MDIFF) SARS coronavirus 2 RNA [Presence] in Respiratory specimen by JAYE with probe [id number] 01:08:43 Test Item Value Reference Range Interpretation Comments SARS coronavirus 2 RNA Not detected Not-Detected [Presence] in Respiratory specimen by JAYE with probe detection (test code = 95016-9)
--- NOTE | 2020-11-18 17:55 | RAD REPORT ---
EXAM DESCRIPTION: RAD - Pelvis - 11/18/2020 5:06 pm CLINICAL HISTORY: PAIN COMPARISON: No comparisons TECHNIQUE: AP imaging of the pelvis was obtained. FINDINGS: Lower lumbar degenerative changes are present. Bone loss changes are seen along the left l ateral margin of L4 and there is poorly defined endplates and lucent changes abutting the L4-5 disc s pace. No prior imaging or history available. No fracture of the bony pelvis seen. Dense contrast opacified stool in the rectum obscures the pubic symphysis and medial aspects of the rami. No femur fracture identified. Skin fold artifacts overlie t he left intertrochanteric region. There is no dislocation of the femoral head. No AVN findings seen. Dense arterial tree calcifications are present. IMPRESSION: No pelvis or hip fracture identifiable. Bone loss changes at the L4 left lateral body and at the L4-5 disc space. Neoplastic or infectious et iologies are possible and needs correlation. Follow-up CT imaging would be helpful.
--- NOTE | 2020-11-18 17:56 | RAD REPORT ---
EXAM DESCRIPTION: RAD - Hip Left 2 View - 11/18/2020 5:06 pm CLINICAL HISTORY: PAIN COMPARISON: No comparisons FINDINGS: AP and frogleg views of the left hip were obtained. There is no fracture or dislocation. No acute or destructive bony process seen. Bones are osteopenic . Arterial tree calcifications are present. There is dense contrast opacified stool distending the re ctum. IMPRESSION: Negative left hip examination for acute or significant findings.
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
[2020-11-18] MEDS ORDERED: MORPHINE 2 MG/ML SYR ONE ×2 (18:33→23:21)
[2020-11-18] MEDS ORDERED: ONDANSETRON 4 MG/2 ML VIAL ONE (18:33)
[2020-11-18] MEDS ORDERED: NA CHLORIDE 0.9% 1,000 ML ONE (18:34)
--- NOTE | 2020-11-18 19:10 | ER ---
Nurse's Notes [facility] Name: Catrachito Blanco Age: 85 yrs Sex: Male : 1935 Arrival Date: 11/18/2020 Time: 16:24 Bed 14 Private MD: Diagnosis: Low back pain-L4L5 DESTRUCTIVE LESIONS;End stage renal disease-on HD;Fall (on) (from) other stairs and steps-TOLIET;Sciatica, left side;Presence of cardiac pacemaker Presentation: 11/18 16:25 Chief complaint: EMS states: FALL FROM STANDING LAST THURSDAY, ,LEFT HIP STRUCK TOILET. bp Coronavirus screen: At this time, the client does not indicate any symptoms associated with coronavirus-19. Ebola Screen: No symptoms or risks identified at this time. Initial Sepsis Screen: Does the patient meet any 2 criteria? No. Patient's initial sepsis screen is negative. Does the patient have a suspected source of infection? No. Patient's initial sepsis screen is negative. Risk Assessment: Do you want to hurt yourself or someone else? Patient reports no desire to harm self or others. Note 4 DAYS AGO, NO LOC, NO DEFORMITY NOTED. Onset of symptoms is unknown. 16:25 Method Of Arrival: EMS: [facility] bp 16:25 Acuity: CHARU 3 bp Triage Assessment: 16:40 General: Appears distressed, uncomfortable, Behavior is cooperative, appropriate for bp age, anxious. Pain: Complains of pain in left hip. EENT: No deficits noted. Neuro: No deficits noted. Cardiovascular: No deficits noted. Respiratory: No deficits noted. GI: No signs and/or symptoms were reported involving the gastrointestinal system. : No signs and/or symptoms were reported regarding the genitourinary system. Derm: No deficits noted. Musculoskeletal: Reports pain in left hip. Historical: - Allergies: 16:36 PENICILLINS; bp - Home Meds: 16:36 clopidogrel 75 mg Oral tab 1 tab once daily [Active]; pioglitazone oral [Active]; bp pantoprazole 40 mg Oral TbEC 1 tab once daily [Active]; Eliquis 2.5 mg Oral tab 1 tab 2 times per day [Active]; Fosrenol 1,000 mg oral chew 1 tab 3 times per day [Active]; gabapentin 300 mg oral tab 1 tab nightly [Active]; albuterol sulfate 90 mcg/actuation Inhl HFAA 1 puff every 4 hours [Active]; - PMHx: 16:36 CHF; GI Bleed; Renal Disease; bp - Immunization history:: Client reports receiving the 2nd dose of the Covid vaccine. - Social history:: Smoking status: Patient denies any tobacco usage or history of. - Family history:: not pertinent. Screenin:00 Abuse screen: Denies threats or abuse. Denies injuries from another. Nutritional bp screening: No deficits noted. Tuberculosis screening: No symptoms or risk factors identified. Fall Risk None identified. Assessment: 16:40 General: SEE TRIAGE NOTE. bp 17:00 Reassessment: No changes from previously documented assessment. Patient and/or family bp updated on plan of care and expected duration. Pain level reassessed. 18:00 Reassessment: No changes from previously documented assessment. Patient and/or family bp updated on plan of care and expected duration. Pain level reassessed. ALL CURRENT ORDERS COMPLETED. 19:45 General: Appears in no apparent distress. Behavior is appropriate for age. Pain: lp1 Complains of pain in back Pain currently is 2 out of 10 on a pain scale. Neuro: Level of Consciousness is awake, alert, obeys commands, Oriented to person, place, situation. Cardiovascular: Patient's skin is warm and dry. Respiratory: Respiratory effort is even, unlabored. GI: Abdomen is non-distended. : No signs and/or symptoms were reported regarding the genitourinary system. EENT: No signs and/or symptoms were reported regarding the EENT system. Derm: Skin is intact, is fragile, Skin is dry, Skin is normal. Musculoskeletal: Circulation, motion, and sensation intact. Reports pain in back. 21:00 Reassessment: Patient appears in no apparent distress at this time. Patient and/or lp1 family updated on plan of care and expected duration. Pain level reassessed. Patient resting, eyes closed, respirations even. 22:40 Reassessment: Patient reports pain to left hip, rate 7/10; Repositioned for comfort and lp1 linens changed. Vital Signs: 16:25 Weight 99.79 kg; Height 6 ft. 0 in. (182.88 cm); bp 17:00 BP 142 / 59; Pulse 68; Resp 15; Pulse Ox 96% ; bp 18:00 BP 119 / 64; Pulse 70; Resp 15; Pulse Ox 99% ; bp 19:30 BP 118 / 62; Pulse 70; Resp 18; Temp 98.4(O); Pulse Ox 97% on R/A; Pain 2/10; lp1 16:25 Body Mass Index 29.84 (99.79 kg, 182.88 cm) bp ED Course: 16:24 Patient arrived in ED. bp 16:25 Nestor Santiago MD is Attending Physician. chaitanya 16:35 Triage completed. bp 16:40 Arm band placed on. bp 17:00 Patient has correct armband on for positive identification. Bed in low position. Call bp light in reach. Side rails up X2. Adult w/ patient. 17:08 Pelvis XRAY In Process Unspecified. EDMS 17:08 Hip Left 2 View XRAY In Process Unspecified. EDMS 17:39 CT Pelvis wo Cont: ATTN LEFT HIP In Process Unspecified. EDMS 17:42 Brock Rea, ALFREDO is Primary Nurse. bp 18:32 Inserted saline lock: 22 gauge in right hand, using aseptic technique. em1 19:05 Aris Ash MD is Hospitalizing Provider. chaitanya 19:30 Primary Nurse role handed off by Brock Rea RN mw2 20:19 No provider procedures requiring assistance completed. Patient admitted, IV remains in lp1 place. 20:24 Rosie Bruno RN is Primary Nurse. lp1 20:35 XRAY Chest (1 view) In Process Unspecified. EDMS Administered Medications: 18:00 Drug: NS 0.9% 1000 ml Route: IV; Rate: 125 ml/hr; Site: right forearm; bp 20:24 Follow up: IV Status: Infusion continued upon admission lp1 18:00 Drug: morphine 2 mg Route: IVP; Site: right forearm; bp 18:00 Drug: Zofran (Ondansetron) 4 mg Route: IVP; Site: right forearm; bp 18:54 Follow up: Response: No adverse reaction bp 23:07 Drug: morphine 2 mg Route: IVP; Site: right wrist; lp1 23:50 Follow up: Response: Marked relief of symptoms lp1 Outcome: 19:09 Decision to Hospitalize by Provider. chaitanya 19:45 Condition: stable lp1 19:45 Instructed on the need for admit. 23:34 Admitted to Med/surg room 213, with chart, Report called to ALFREDO Howard lp1 11/19 00:00 Patient left the ED. lp1 Signatures: Dispatcher [employer] EDNestor Long MD MD cha Martinez, Eric em1 Rosie Bruno, RN RN lp1 Brock Rea, [place] Mederos RN 2 Corrections: (The following items were deleted from the chart) 11/18 23:35 19:45 Admitted to ER Hold. Please see [facility] for further documentation. lp1 lp1
--- NOTE | 2020-11-18 19:10 | EDPHYS ---
Physician Documentation [facility] Name: Catrachito Blanco Age: 85 yrs Sex: Male : 1935 Arrival Date: 11/18/2020 Time: 16:24 Bed 14 Private MD: ED Physician Nestor Santiago HPI: 11/18 17:11 This 85 yrs old Male presents to ER via EMS with complaints of Fall Injury. chaitanya 17:11 Details of fall: The patient fell from seated position, TOILET. Onset: The chaitanya symptoms/episode began/occurred 3 day(s) ago. Associated injuries: The patient sustained left hip, decreased range of motion, painful injury. Severity of symptoms: At their worst the symptoms were mild, in the emergency department the symptoms are unchanged. The patient has not experienced similar symptoms in the past. Historical: - Allergies: 16:36 PENICILLINS; bp - Home Meds: 16:36 clopidogrel 75 mg Oral tab 1 tab once daily [Active]; pioglitazone oral [Active]; bp pantoprazole 40 mg Oral TbEC 1 tab once daily [Active]; Eliquis 2.5 mg Oral tab 1 tab 2 times per day [Active]; Fosrenol 1,000 mg oral chew 1 tab 3 times per day [Active]; gabapentin 300 mg oral tab 1 tab nightly [Active]; albuterol sulfate 90 mcg/actuation Inhl HFAA 1 puff every 4 hours [Active]; - PMHx: 16:36 CHF; GI Bleed; Renal Disease; bp - Immunization history:: Client reports receiving the 2nd dose of the Covid vaccine. - Social history:: Smoking status: Patient denies any tobacco usage or history of. - Family history:: not pertinent. ROS: 17:11 Constitutional: Negative for fever, chills, and weight loss, Eyes: Negative for injury, chaitanya pain, redness, and discharge, ENT: Negative for injury, pain, and discharge, Neck: Negative for injury, pain, and swelling, Cardiovascular: Negative for chest pain, palpitations, and edema, Respiratory: Negative for shortness of breath, cough, wheezing, and pleuritic chest pain, Abdomen/GI: Negative for abdominal pain, nausea, vomiting, diarrhea, and constipation, Back: Negative for injury and pain, : Negative for injury, bleeding, discharge, and swelling, Skin: Negative for injury, rash, and discoloration, Neuro: Negative for headache, weakness, numbness, tingling, and seizure, Psych: Negative for depression, anxiety, suicide ideation, homicidal ideation, and hallucinations, Allergy/Immunology: Negative for hives, rash, and allergies, Endocrine: Negative for neck swelling, polydipsia, polyuria, polyphagia, and marked weight changes, Hematologic/Lymphatic: Negative for swollen nodes, abnormal bleeding, and unusual bruising. 17:11 MS/extremity: Positive for decreased range of motion, pain, tenderness, of the left hip. Exam: 17:11 Constitutional: This is a well developed, well nourished patient who is awake, alert, chaitanya and in no acute distress. Head/Face: Normocephalic, atraumatic. Eyes: Pupils equal round and reactive to light, extra-ocular motions intact. Lids and lashes normal. Conjunctiva and sclera are non-icteric and not injected. Cornea within normal limits. Periorbital areas with no swelling, redness, or edema. ENT: Nares patent. No nasal discharge, no septal abnormalities noted. Tympanic membranes are normal and external auditory canals are clear. Oropharynx with no redness, swelling, or masses, exudates, or evidence of obstruction, uvula midline. Mucous membranes moist. Neck: Trachea midline, no thyromegaly or masses palpated, and no cervical lymphadenopathy. Supple, full range of motion without nuchal rigidity, or vertebral point tenderness. No Meningismus. Chest/axilla: Normal chest wall appearance and motion. Nontender with no deformity. No lesions are appreciated. Cardiovascular: Regular rate and rhythm with a normal S1 and S2. No gallops, murmurs, or rubs. Normal PMI, no JVD. No pulse deficits. Respiratory: Lungs have equal breath sounds bilaterally, clear to auscultation and percussion. No rales, rhonchi or wheezes noted. No increased work of breathing, no retractions or nasal flaring. Abdomen/GI: Soft, non-tender, with normal bowel sounds. No distension or tympany. No guarding or rebound. No evidence of tenderness throughout. Back: No spinal tenderness. No costovertebral tenderness. Full range of motion. Male : Normal genitalia with no discharge or lesions. Skin: Warm, dry with normal turgor. Normal color with no rashes, no lesions, and no evidence of cellulitis. Neuro: Awake and alert, GCS 15, oriented to person, place, time, and situation. Cranial nerves II-XII grossly intact. Motor strength 5/5 in all extremities. Sensory grossly intact. Cerebellar exam normal. Normal gait. Psych: Awake, alert, with orientation to person, place and time. Behavior, mood, and affect are within normal limits. 17:11 Musculoskeletal/extremity: Extremities: grossly normal except: noted in the left hip: decreased ROM, pain. 20:19 ECG was reviewed by the Attending Physician. [facility] Vital Signs: 16:25 Weight 99.79 kg; Height 6 ft. 0 in. (182.88 cm); bp 17:00 BP 142 / 59; Pulse 68; Resp 15; Pulse Ox 96% ; bp 18:00 BP 119 / 64; Pulse 70; Resp 15; Pulse Ox 99% ; bp 19:30 BP 118 / 62; Pulse 70; Resp 18; Temp 98.4(O); Pulse Ox 97% on R/A; Pain 2/10; lp1 16:25 Body Mass Index 29.84 (99.79 kg, 182.88 cm) bp MDM: 16:25 Patient medically screened. [facility] 17:17 Differential diagnosis: fracture, sprain, strain. Data reviewed: vital signs, nurses [facility] notes, radiologic studies, CT scan, plain films. Data interpreted: monitoring specialist: rate is 86 beats/min, rhythm is regular, Pulse oximetry: on room air is 96 %. Test interpretation: by ED physician or midlevel provider: plain radiologic studies. Counseling: I had a detailed discussion with the patient and/or guardian regarding: the historical points, exam findings, and any diagnostic results supporting the discharge/admit diagnosis, lab results, radiology results. 11/18 18:59 Order name: Basic Metabolic Panel [facility] 11/18 18:59 Order name: CBC with Diff [facility] 11/18 18:59 Order name: LFT's [facility] 11/18 18:59 Order name: Magnesium; Complete Time: 22:17 [facility] 11/18 18:59 Order name: NT PRO-BNP; Complete Time: 22:17 [facility] 11/18 18:59 Order name: PT-INR; Complete Time: 22:17 [facility] 11/18 18:59 Order name: Troponin (emerg Dept Use Only); Complete Time: 22:17 [facility] 11/18 18:59 Order name: Sed Rate; Complete Time: 22:17 [facility] 11/18 18:59 Order name: Blood Culture Adult (2) [facility] 11/18 18:59 Order name: Basic Metabolic Panel; Complete Time: 22:17 [facility] 11/18 18:59 Order name: CBC with Automated Diff; Complete Time: 22:17 [facility] 11/18 18:59 Order name: Liver (Hepatic) Function; Complete Time: 22:17 [facility] 11/18 19:18 Order name: Basic Metabolic Panel [facility] 11/18 19:18 Order name: Basic Metabolic Panel [facility] 11/18 16:25 Order name: Pelvis XRAY; Complete Time: 18:02 [facility] 11/18 16:25 Order name: Hip Left 2 View XRAY; Complete Time: 18:02 [facility] 11/18 17:09 Order name: CT Pelvis wo Cont: ATTN LEFT HIP; Complete Time: 18:38 [facility] 11/18 18:59 Order name: XRAY Chest (1 view); Complete Time: 22:17 [facility] 11/18 18:59 Order name: EKG; Complete Time: 19:00 [facility] 11/18 19:18 Order name: Lipase [facility] 11/18 19:18 Order name: Lipase [facility] 11/18 19:18 Order name: Liver (Hepatic) Function [facility] 11/18 19:19 Order name: Liver (Hepatic) Function [facility] 11/18 19:19 Order name: CBC with Automated Diff [facility] 11/18 19:19 Order name: CBC with Automated Diff [facility] 11/18 21:41 Order name: SARS-COV-2 RT PCR; Complete Time: 22:17 [facility] 11/18 18:59 Order name: Cardiac monitoring; Complete Time: 20:24 [facility] 11/18 18:59 Order name: EKG - Nurse/Tech; Complete Time: 20:24 [facility] 11/18 18:59 Order name: IV Saline Lock; Complete Time: 20:24 [facility] 11/18 18:59 Order name: Labs collected and sent; Complete Time: 20:24 [facility] 11/18 18:59 Order name: O2 Per Protocol; Complete Time: 20:24 [facility] 11/18 18:59 Order name: O2 Sat Monitoring; Complete Time: 20:24 [facility] 11/18 19:18 Order name: NPO [facility] 11/18 21:06 Order name: CONS Physician Consult [facility] 11/18 21:06 Order name: CONS Rehab Consult EDMS EC:19 Rate is 70 beats/min. Rhythm is regular. QRS [place] is Normal. [place] interval is normal. QRS chaitanya interval is normal. QT interval is normal. No Q waves. T waves are Normal. No ST changes noted. Clinical impression: Abnormal EKG without significant change and No evidence of ischemia. Interpreted by me. Reviewed by me. Administered Medications: 18:00 Drug: NS 0.9% 1000 ml Route: IV; Rate: 125 ml/hr; Site: right forearm; bp 20:24 Follow up: IV Status: Infusion continued upon admission lp1 18:00 Drug: morphine 2 mg Route: IVP; Site: right forearm; bp 18:00 Drug: Zofran (Ondansetron) 4 mg Route: IVP; Site: right forearm; bp 18:54 Follow up: Response: No adverse reaction bp 23:07 Drug: morphine 2 mg Route: IVP; Site: right wrist; lp1 23:50 Follow up: Response: Marked relief of symptoms lp1 Disposition Summary: 11/18/20 19:09 Hospitalization Ordered Hospitalization Status: Observation chaitanya Provider: Aris Ash cha Location: Telemetry/MedSurg (observation) chaitanya Condition: Fair chaitanya Problem: new chaitanya Symptoms: have improved chaitanya Bed/Room Type: Standard chaitanya Room Assignment: 232(11/18/20 23:39) mw2 Diagnosis - Low back pain - L4L5 DESTRUCTIVE LESIONS chaitanya - End stage renal disease - on HD chaitanya - Fall (on) (from) other stairs and steps - TOLIET chaitanya - Sciatica, left side chaitanya - Presence of cardiac pacemaker chaitanya Forms: - Medication Reconciliation Form chaitanya - SBAR form chaitanya Signatures: Dispatcher [employer] EDMS Nestor Santiago MD MD cha Mickail, Joel, PA PA jmm Pena, Laura, RN RN lp1 Gisele Kothari RN RN cg Peltier, Brian, RN RN [place] Marc mw2 Corrections: (The following items were deleted from the chart) 20:21 18:49 ECG was reviewed by the Attending Physician. chaitanya chaitanya 20: 18:49 Rate is 80 beats/min. Rhythm is regular. QRS [place] is Normal. [place] interval is chaitanya normal. QRS interval is normal. QT interval is normal. No Q waves. T waves are Normal. No ST changes noted. Clinical impression: NSR w/ Non-specific ST/T Changes and No evidence of ischemia. Interpreted by me. Reviewed by me. [facility] 20:33 19:49 CORONAVIRUS+MR.LAB.BRZ ordered. EDMS EDMS 22:38 19:09 [facility] cg 23:39 22:38 213 mw2
[2020-11-18] MEDS ORDERED: MORPHINE 2 MG/ML SYR IV PRN (19:17)
[2020-11-18] MEDS ORDERED: ONDANSETRON 4 MG/2 ML VIAL IV PRN (19:17)
[2020-11-18] MEDS ORDERED: ACETAMINOPHEN 325 MG TABLET PO PRN (19:17)
[2020-11-18 20:56] LABS: Basophils % 0.5 % (0-1.3); Hematocrit 32.6 % (39.6-49.0); Lymphocytes % 10.3 % (15.3-44.8); RBC Red Blood Cell Count 3.41 M/uL (4.33-5.43)
[2020-11-18 20:58] LABS: Protime INR 1.28
--- NOTE | 2020-11-18 20:58 | RAD REPORT ---
EXAM DESCRIPTION: RAD - Chest Single View - 11/18/2020 8:35 pm CLINICAL HISTORY: COUGH COMPARISON: Portable August 12 TECHNIQUE: AP portable chest image was obtained 11/18/2020 8:35 pm . FINDINGS: Right-sided pleural effusion seen on the July study has significantly improved. Small amoun t of pleural effusion remains. Left-sided pleural effusion is not clearly different. Interstitial and alveolar opacities are present in both lung sandoval. Pattern is not substantially dif ferent from comparison and could be residual or recurrent lung parenchymal disease. Right-sided pacemaker is in place. Heart size normal range for portable imaging. Trachea is midline. No pneumothorax. No acute bony abnormality seen. No acute aortic findings suspected. IMPRESSION: Interstitial and scattered alveolar opacities are present not substantially different co mparison. This could be residual or recurrent edema or infiltrate. In the current clinical environment a COVID-19 pneumonia cannot be excluded but would need correlatio n with testing and clinical presentation. Interval reduction in pleural effusions since the August 12 study.
[2020-11-18 21:56] LABS: Albumin 2.4 g/dL (3.4-5.0); Bilirubin Direct 0.1 mg/dL (0-0.2); Bilirubin Total 0.3 mg/dL (0.2-1.0); Magnesium 2.3 mg/dL (1.8-2.4); Protein, Total 6.9 g/dL (6.4-8.2); Troponin (Emerg Dept Use Only) 0.08 ng/mL (0.0-0.045)
[2020-11-19 02:06] VITALS: BMI 29.8
[2020-11-19 06:07] LABS: Absolute Lymphocytes (CBC) 1.2 K/uL (0.7-4.9); Hematocrit 31.4 % (39.6-49.0); Lymphocytes % 14.2 % (15.3-44.8); MPV 7.6 fL (7.6-11.3)
[2020-11-19 06:28] LABS: Albumin 2.2 g/dL (3.4-5.0); Bilirubin Direct 0.1 mg/dL (0-0.2); Bilirubin Total 0.3 mg/dL (0.2-1.0); Potassium 3.9 mmol/L (3.5-5.1); Protein, Total 6.6 g/dL (6.4-8.2)
[2020-11-19] MEDS ORDERED: PNEUMOCOCCAL VACCINE 0.5 ML IMVAC ONE (08:00)
--- NOTE | 2020-11-19 09:48 | P.HP ---
Certification for Inpatient Patient admitted to: Inpatient With expected LOS: >2 Midnights Patient will require the following post-hospital care: Shelter Practitioner: I am a practitioner with admitting privileges, knowledge of patient current condition, hospital course, and medical plan of care. Services: Services provided to patient in accordance with Admission requirements found in Title 42 Section 412.3 of the Code of Federal Regulations Patient History Date of Service: 11/19/20 Primary Care Provider: Nilsa Reason for admission: Protein enery malnutrition(severe) History of Present Illness: Patient is an office patient of [facility]. With a history of ESRD, htn, pvd. Had a GI bleed last Dec with a prolonged hospitalization. The patient has been having problems with transferring for the last few weeks. Have been discussing this with his . He lives in a assisted community with his . She has called several times in the last few weeks stating He cannot get out of bed or a chair. As she is also in her 80's she cannot get him up by himself. The patient has missed dialysis this past week due to this reason. He came to the hospital last night with increasing pain and weakness. Was found to have some osteoportic bone distruction of L4-5. He has no cough, sob, fever, chills. Nausea or vomitting Allergies adhesive tape Allergy (Verified 11/19/20 01:09) Hives/Rash hydrochlorothiazide [From Hyzaar] Allergy (Verified 11/19/20 01:09) Itching/Hives/Rash losartan [From Hyzaar] Allergy (Verified 11/19/20 01:09) Itching/Hives/Rash Penicillins Allergy (Verified 11/19/20 01:09) Itching/Hives/Rash Home Medications: Gabapentin [Neurontin*] 300 mg PO BEDTIME 03/11/19 Latanoprost/Pf [Latanoprost 0.005% Eye Drop] 1 drop EACH EYE BEDTIME 03/11/19 Albuterol Sulfate [Albuterol Sulfate Hfa] 1 puff IH SEECOM PRN 08/12/20 Apixaban [Eliquis *] 1 tab PO Q12H 08/12/20 Fluticasone Propionate 1 spray IH BID 08/12/20 Lanthanum Carbonate [Fosrenol] 1 tab PO SEECOM 08/12/20 Pantoprazole [Protonix Tab*] 1 tab PO DAILY 08/12/20 - Past Medical/Surgical History Diabetic: Yes -: Arthritis -: Anemia -: Diabetes-NIDDM -: HTN -: HD-T,TH,S -: Depression -: Sleep Apnes- CPAP@home -: [place] in 2011 with 2 stents -: Pacemaker -: Left Nephrectomy -: Cardiac stents x2 -: ORIF of the Right akkle -: cardiac cath x2 -: Dialysis Graft placement in the Left upper arm - Family History Mother -: Heart disease, Hypertension, Diabetes, Stroke, Other (see notes) Notes: [place] Father -: Heart disease, Hypertension - Social History Smoking Status: Never smoker Alcohol use: No CD- Drugs: No Caffeine use: Yes Place of Residence: Home Review of Systems 10-point ROS is otherwise unremarkable General: Weakness Musculoskeletal: Back Pain (low back ) Physical Examination - Vital Signs Temperature: 97.4 F Blood Pressure: 124/62 Pulse: 72 Respirations: 18 Pulse Ox (%): 99 - Physical Exam General: Alert, In no apparent distress HEENT: Atraumatic, PERRLA, Mucous membr. moist/pink, EOMI, Sclerae nonicteric Neck: Supple, 2+ carotid pulse no bruit, No LAD, Without JVD or thyroid abnormality Respiratory: Clear to auscultation bilaterally, Normal air movement Cardiovascular: Regular rate/rhythm, Normal S1 S2 Gastrointestinal: Normal bowel sounds, No tenderness Musculoskeletal: No tenderness Integumentary: No rashes Neurological: Normal gait, Normal speech, Normal strength at 5/5 x4 extr, Normal tone, Normal affect Lymphatics: No axilla or inguinal lymphadenopathy - Studies Laboratory Data (last 24 hrs) 11/18/20 20:25: PT 14.8 H, INR 1.28 11/18/20 20:25: WBC 9.60, Hgb 10.9 L, Hct 32.6 L, Plt Count 277 11/18/20 20:25: Sodium 139, Potassium 4.0, BUN 46 H, Creatinine 4.88 H, Glucose 157 H, Magnesium 2.3, Total Bilirubin 0.3, AST 16, ALT 12, Alkaline Phosphatase 87 Assessment and Plan - Problems (Diagnosis) (1) Severe protein-energy malnutrition Current Visit: Yes Status: Acute Plan: acute on chronic. Will consult social worker health services and PT. As the patient's cannot manage. He has children that work and so not a lot of social support. An assisted living facility has been looked into and is too expensive for the patient and his . Will look into custodial placement, may be permanent. He has had a rough year with hospitalizations and continues to decline physically. (2) Osteoporotic compression fracture of spine Current Visit: Yes Status: Acute Plan: Will have to refer to Dr. Jakub Byrne as an out patient. He may be a good candidate for surgical intervention such as the spinal cement. Qualifiers: Encounter type: initial encounter Qualified Code(s): M80.88XA - Other osteoporosis with current pathological fracture, vertebra(e), initial encounter for fracture (3) Congestive heart failure (CHF) Current Visit: No Status: Chronic Plan: stable no fluid overload. Will keep him on his home medications. Qualifiers: Heart failure type: systolic Heart failure chronicity: chronic Qualified Code(s): I50.22 - Chronic systolic (congestive) heart failure (4) End stage renal disease Current Visit: No Status: Chronic Plan: consult to Dr. Loaiza to manage his dialysis Discharge Plan: Detention Plan to discharge in: Greater than 2 days - Advance Directives Does patient have a Living Will: No Does patient have a Durable POA for Healthcare: No - Code Status/Comfort Care Code Status Assessed: No Physician Review: Patient Assessed, Agree with Above Assessment and Plan Critical Care: No Time Spent Managing Pts Care (In Minutes): 45
[2020-11-19] MEDS: APIXABAN 2.5 MG TABLET PO SCH ×2 (10:00→21:38)
[2020-11-19] MEDS: LANTHANUM 1000 MG TAB PO SCH ×2 (12:00→16:22)
[2020-11-19 18:35] LABS: Urine Appearance CLOUDY (Clear); Urine Bilirubin NEGATIVE (Negative); Urine Blood 2+ (Negative); Urine Color YELLOW (Yellow); Urine Glucose NEGATIVE (Negative); Urine Protein 2+ (Negative); Urine Urobilinogen 0.2 mg/dL (0.2-1.0)
[2020-11-19 18:38] LABS: Urine Microscopic Reflex ORDER UMIC
[2020-11-19 18:56] LABS: Urine Bacteria <20 /HPF (NONE SEEN); Urine RBC <5 /HPF (NONE SEEN)
[2020-11-19] MEDS: GABAPENTIN 300 MG CAP PO SCH (21:38)
[2020-11-19] MEDS: LATANOPROST 0.005% 2.5ML OPTH OPTH SCH (21:38)
[2020-11-20] MEDS: PANTOPRAZOLE 40MG TABLET PO SCH (06:50)
[2020-11-20] MEDS: LANTHANUM 1000 MG TAB PO SCH ×3 (08:00→15:19)
[2020-11-20] MEDS: APIXABAN 2.5 MG TABLET PO SCH ×2 (09:00→21:29)
--- NOTE | 2020-11-20 14:51 | P.PN ---
Subjective Date of Service: 11/20/20 Primary Care Provider: Nilsa Chief Complaint: Protein enery malnutrition(severe) Subjective: No new changes Review of Systems 10-point ROS is otherwise unremarkable Musculoskeletal: Leg Pain (right leg pain ) Physical Examination - Vital Signs Temperature: 97.7 F Blood Pressure: 127/70 Pulse: 70 Respirations: 18 Pulse Ox (%): 94 - Physical Exam General: Alert, In no apparent distress HEENT: Atraumatic, PERRLA, EOMI Neck: Supple, JVD not distended Respiratory: Clear to auscultation bilaterally, Normal air movement Cardiovascular: Regular rate/rhythm, Normal S1 S2 Gastrointestinal: Normal bowel sounds, No tenderness Musculoskeletal: No tenderness Integumentary: No rashes Neurological: Normal speech, Normal tone, Normal affect Lymphatics: No axilla or inguinal lymphadenopathy Assessment & Plan - Problems (Diagnosis) (1) Severe protein-energy malnutrition Current Visit: Yes Status: Acute Plan: acute on chronic. Will consult child welfare social worker and PT. As the patient's cannot manage. He has children that work and so not a lot of social support. An assisted living facility has been looked into and is too expensive for the patient and his . Will look into longterm placement, may be permanent. He has had a rough year with hospitalizations and continues to decline physically. (2) Osteoporotic compression fracture of spine Current Visit: Yes Status: Acute Plan: Will have to refer to Dr. Jakub Byrne as an out patient. He may be a good candidate for surgical intervention such as the spinal cement. Qualifiers: Encounter type: initial encounter Qualified Code(s): M80.88XA - Other osteoporosis with current pathological fracture, vertebra(e), initial encounter for fracture (3) Congestive heart failure (CHF) Current Visit: No Status: Chronic Plan: stable no fluid overload. Will keep him on his home medications. Qualifiers: Heart failure type: systolic Heart failure chronicity: chronic Qualified Code(s): I50.22 - Chronic systolic (congestive) heart failure (4) End stage renal disease Current Visit: No Status: Chronic Plan: consult to Dr. Loaiza to manage his dialysis Discharge Plan: Prison Plan to discharge in: 24 Hours - Code Status/Comfort Care Code Status Assessed: No Code Status: Full Code Physician Review: Patient Assessed, Agree with Above Assessment and Plan Critical Care: No Time Spent Managing Pts Care (In Minutes): 20
[2020-11-20] MEDS: HYDROMORPHONE HCL 0.5 MG/0.5 ML INJ IV PRN (15:26)
--- NOTE | 2020-11-20 16:42 | CON ---
Date of Consultation: 11/20/2020 Reason For Consultation: Elevated BUN and creatinine, hemodialysis management. History Of Present Illness: This is an 85-year-old gentleman, well known to me from dialysis with si gnificant past medical history of end-stage renal disease, on hemodialysis, TTS, last dialysis was , hypertension, congestive heart failure, pleural effusion, the patient came to the hospital th at he could not ambulate or transfer. For that reason, brought to the hospital. The patient denied any chest pain, any nausea, any vomiting. Primary workup showed elevation in BUN and creatinine. Fo r that reason, we have been consulted. Past Medical History: Includes; 1.Hypertension. 2.Congestive heart failure. 3.Pleural effusion. 4.End-stage renal disease, on dialysis TTS. Allergies: TO PENICILLIN AND ADHESIVE. Social History: Denied smoking, denied drinking, denied drugs abuse. In longterm community. Past Surgical History: Includes AV fistula. Review of Systems: Head and Neck: No red eye. No ear pain. GI: No nausea. No vomiting. : No polyuria. No dysuria. No hematuria. Zone Supervisor Firearms: Not applicable. Respiratory: No shortness of breath. Cardiovascular: No chest pain. Endocrine: No polydipsia. Skin: No rash. Neuro: Has weakness, difficulty ambulating. Musculoskeletal: Generalized fatigue. Physical Examination: Vital Signs: When I saw the patient; blood pressure of 127/70, pulse of 70, afebrile. Chest: Clear to auscultation. Heart: S1, S2. Systolic murmur. Abdomen: Soft, nontender. Extremity: No edema. Neuro: Alert, oriented x3. No focal. Laboratory Data: WBC 8.2, H and H 10.6/30.4. Sodium 139, potassium 3.9, bicarb 26, BUN 51, creatini ne 4.5, calcium 9.5, albumin 2.2, corrected calcium is 11. Chest x-ray; cardiomegaly, left pleural e ffusion, marginal congestion. This is before dialysis. Current Medications: The patient on include home medication, which includes pantoprazole, , gabapentin, Eliquis. Assessment And Plan: 1.End-stage renal disease. We will continue the patient on dialysis TTS. We will dialyze him today , then Thursday and we will monitor. 2.Anemia of chronic kidney disease. We will resume ARIC. 3.Hypertension, controlled, optimal. Continue current treatment. 4.Secondary hyperparathyroidism. Resume . 5.Deconditioning. We will consult for inpatient rehab. CORBY Voice ID: [id number] Report ID: [id number]
[2020-11-20] MEDS: GABAPENTIN 300 MG CAP PO SCH (21:29)
[2020-11-20] MEDS: LATANOPROST 0.005% 2.5ML OPTH OPTH SCH (21:34)
[2020-11-21] MEDS: PANTOPRAZOLE 40MG TABLET PO SCH (06:47)
[2020-11-21] MEDS: LANTHANUM 1000 MG TAB PO SCH ×2 (08:00→12:00)
[2020-11-21] MEDS: HYDROMORPHONE HCL 0.5 MG/0.5 ML INJ IV PRN (09:51)
[2020-11-21] MEDS: APIXABAN 2.5 MG TABLET PO SCH ×2 (09:52→20:11)
[2020-11-21] MEDS: LIDOCAINE 4% PATCH TOP SCH (09:52)
--- NOTE | 2020-11-21 11:55 | P.PN ---
Subjective Date of Service: 11/21/20 Primary Care Provider: Nilsa Chief Complaint: Protein enery malnutrition(severe) Subjective: No new changes (was not able to stand with PT today.) Review of Systems 10-point ROS is otherwise unremarkable General: Weakness Physical Examination - Vital Signs Temperature: 97.6 F Blood Pressure: 127/96 Pulse: 70 Respirations: 16 Pulse Ox (%): 98 - Physical Exam General: Alert, In no apparent distress HEENT: Atraumatic, PERRLA, EOMI Neck: Supple, JVD not distended Respiratory: Clear to auscultation bilaterally, Normal air movement Cardiovascular: Regular rate/rhythm, Normal S1 S2 Gastrointestinal: Normal bowel sounds, No tenderness Musculoskeletal: No tenderness Integumentary: No rashes Neurological: Normal speech, Normal tone, Normal affect Lymphatics: No axilla or inguinal lymphadenopathy Assessment & Plan - Problems (Diagnosis) (1) Severe protein-energy malnutrition Current Visit: Yes Status: Acute Plan: acute on chronic. Will consult high school social science teacher and PT. As the patient's cannot manage. He has children that work and so not a lot of social support. An assisted living facility has been looked into and is too expensive for the patient and his . Will look into detention placement, may be permanent. He has had a rough year with hospitalizations and continues to decline physically. (2) Osteoporotic compression fracture of spine Current Visit: Yes Status: Acute Plan: Will have to refer to Dr. Jakub Byrne as an out patient. He may be a good candidate for surgical intervention such as the spinal cement. Qualifiers: Encounter type: initial encounter Qualified Code(s): M80.88XA - Other osteoporosis with current pathological fracture, vertebra(e), initial encounter for fracture (3) Congestive heart failure (CHF) Current Visit: No Status: Chronic Plan: stable no fluid overload. Will keep him on his home medications. Qualifiers: Heart failure type: systolic Heart failure chronicity: chronic Qualified Code(s): I50.22 - Chronic systolic (congestive) heart failure (4) End stage renal disease Current Visit: No Status: Chronic Plan: consult to Dr. Loaiza to manage his dialysis Discharge Plan: [facility] Plan to discharge in: Greater than 2 days - Code Status/Comfort Care Code Status Assessed: No Physician Review: Patient Assessed, Agree with Above Assessment and Plan Critical Care: No Time Spent Managing Pts Care (In Minutes): 20
[2020-11-21] MEDS ORDERED: FENTANYL 25 MCG/PATCH TD SCH (14:00)
--- NOTE | 2020-11-21 15:59 | PN ---
Date of Progress Note: 11/21/2020 Subjective: The patient was admitted with deconditioning. The patient had dialysis yesterday, sched uled for dialysis tomorrow. Tolerated physical therapy. Physical Examination: Vital Signs: Blood pressure 127/96, pulse of 70. Chest: Clear to auscultation. Heart: S1, S2. Regular. Abdomen: Soft, nontender. Extremities: No edema. Laboratory Data: H and H 10.6/31.4. Sodium 139, potassium 3.9, bicarb 26, BUN 51, creatinine 5.4, c alcium 9.5. Current Medications: The patient on include Eliquis, gabapentin 300 at bedtime, Fosrenol, Zofran, pa ntoprazole, hydromorphone, lidocaine patch. Assessment And Plan: 1.End-stage renal disease. We will continue the patient on dialysis. The patient is going to be sc heduled for dialysis tomorrow. We will follow up. The patient looked to me normal volume. I am goi ng to challenge the patient. 2.Hypertension, controlled, optimal. Continue current medication. 3.Deconditioning. Continue PT/OT. We will start the patient on low dose of fentanyl patch and we w ill follow up. 4.Anemia of chronic kidney disease. Continue ARIC. 5.Secondary hyperparathyroidism. Continue Fosrenol. MICHELE/KRISTOPHER Voice ID: [id number] Report ID: [id number]
[2020-11-21] MEDS: GABAPENTIN 300 MG CAP PO SCH (20:11)
[2020-11-21] MEDS: LATANOPROST 0.005% 2.5ML OPTH OPTH SCH (20:14)
--- NOTE | 2020-11-21 23:38 | CON ---
Chief Complaint: End-stage renal disease, on dialysis. History: Patient has multiple medical problems including history of end-stage renal disease, hyperte nsion, hypertensive heart and kidney disease, severe deconditioning, history of gastrointestinal blee ding. He was hospitalized last year in February for upper GI bleeding. He was complaining recently of progressively worsening weakness, difficulty with ambulation and difficulty to get out of the bed or chair. The patient's was taking care of him, and due to significant decline of the mobility of the patient, the patient's brought him to the hospital. Patient has been dialyzed 3 times pe r week and last dialysis was on Thursday. He has been dialyzed on Tuesdays, , and Saturdays . The patient is currently complaining of progressive generalized weakness. He has history of osteo arthropathy, bone disease and bone destruction of L4 and L5. He denies fever, chills, cough. He remains lethargic and cannot give review of systems, but he denies pain. He was medicated for inessa n and is somewhat lethargic. Home Medications: Gabapentin, latanoprost, albuterol sulfate, Eliquis, fluticasone propionate, , pantoprazole. Past Medical History: Osteoarthritis; anemia; insulin-dependent diabetes mellitus; hypertension; hyp ertensive heart and kidney disease; hemodialysis Thursday, , Saturdays; depression; sleep apne a, on CPAP at home; coronary artery disease; myocardial infarction; history of . Family History: Mother has heart disease, hypertension, diabetes, stroke. Father with heart disease and hypertension. Social History: Denies tobacco, alcohol, or illicit drugs. Physical Examination: General: Patient is arousable. Vital Signs: Blood pressure 124/62, heart rate 72, respiratory rate 18, SpO2 99%. Eyes: Anicteric sclerae. EOMI. Ears, Nose, Mouth, and Throat: Oral mucosa moist. No pallor. Neck: Supple. No bruits. Lungs: Clear breath sounds bilaterally. Heart: S1 and S2. Abdomen: Soft, benign. Extremities: No edema, no clubbing, no cyanosis. Neurologic: Moving extremities. Cranial nerves intact. Psychiatric: The patient is alert and oriented x2. Laboratory Data: PT is 14.8, INR 1.2. WBC 9.6, hemoglobin 10.9, hematocrit 32.6, platelet count 277 . Sodium 139, potassium 4.0, BUN 46, creatinine 4.88, glucose 157, magnesium 2.3. Impression And Plan: 1.Severe protein malnutrition, acute on chronic. Patient will continue p.o. protein supplements. T he patient may need IDPN, which is a nutrition arranged with dialysis. 2.Osteoporotic compression fracture at this time. Patient may need a surgical intervention. 3.Congestive heart failure is controlled. Continue ultrafiltration with dialysis to prevent fluid o verload. Continue p.o. fluid restriction, low-sodium diet. 4.Anemia. Continue ARIC and adjust dose according to hemoglobin. 5.Renal osteodystrophy. Monitor phosphorus level. Adjust binders as needed. EB/MODL Voice ID: [id number] Report ID: [id number]
[2020-11-22] MEDS: PANTOPRAZOLE 40MG TABLET PO SCH (06:07)
--- NOTE | 2020-11-22 06:34 | P.PN ---
Subjective Date of Service: 11/22/20 Primary Care Provider: Nilsa Chief Complaint: Protein enery malnutrition(severe) Subjective: Other (he reports still getting poorly) Physical Examination - Vital Signs Temperature: 97.6 F Blood Pressure: 154/73 Pulse: 70 Respirations: 18 Pulse Ox (%): 92 - Physical Exam General: In no apparent distress, Other (frail looking) HEENT: Normocephalic Neck: Supple, JVD not distended Respiratory: Diminished Cardiovascular: No rubs, No murmurs Gastrointestinal: Non-distended Musculoskeletal: No clubbing Neurological: Normal tone Urinary: Other (no bladder distention) Assessment And Plan - Plan 1. End-stage renal disease. HD received today. 2. Hypertension. BP controlled. Continue current medication. 3. Deconditioning. Continue PT/OT. We will start the patient on low dose of fentanyl patch and we will follow up. 4. Anemia of chronic kidney disease. H&H at goal. Continue ARIC. 5. Secondary hyperparathyroidism. Continue Fosrenol. 6. Failure to thrive. management breath services. 7. Disposition. For discharge to SNF today. Physician Review: Patient Assessed, Agree with Above Assessment and Plan
[2020-11-22] MEDS: LIDOCAINE 4% PATCH TOP SCH (08:56)
[2020-11-22] MEDS: APIXABAN 2.5 MG TABLET PO SCH (08:56)
--- NOTE | 2020-11-22 12:38 | P.DS ---
Admission Date: 11/20/20 Discharge Date: 11/22/20 Primary Care Provider: Nilsa Disposition: TRANSFER TO LONGTERM Discharge Condition: GOOD Reason for Admission: Protein enery malnutrition(severe) - Problems (1) Severe protein-energy malnutrition Current Visit: Yes Status: Acute (2) Osteoporotic compression fracture of spine Current Visit: Yes Status: Acute Qualifiers: Encounter type: initial encounter Qualified Code(s): M80.88XA - Other osteoporosis with current pathological fracture, vertebra(e), initial encounter for fracture (3) Congestive heart failure (CHF) Current Visit: No Status: Chronic Qualifiers: Heart failure type: systolic Heart failure chronicity: chronic Qualified Code(s): I50.22 - Chronic systolic (congestive) heart failure (4) End stage renal disease Current Visit: No Status: Chronic Brief History of Present Illness: Patient is an office patient of [facility]. With a history of ESRD, htn, pvd. Had a GI bleed last Dec with a prolonged hospitalization. The patient has been having problems with transferring for the last few weeks. Have been discussing this with his . He lives in a care home community with his . She has called several times in the last few weeks stating He cannot get out of bed or a chair. As she is also in her 80's she cannot get him up by himself. The patient has missed dialysis this past week due to this reason. He came to the hospital last night with increasing pain and weakness. Was found to have some osteoportic bone distruction of L4-5. He has no cough, sob, fever, chills. Nausea or vomitting Hospital Course: Patient was admitted for pain and worsening weakness. Was seen by PT. Was not able to get up. He was accepted to [facility]. Where I can follow him. Will get him PT. Will also refer him to Dr. Byrne for his osteoporotic changes. Thank you for allowing me to take part in his care., Vital Signs/Physical Exam: Temp Pulse Resp BP Pulse Ox 97.1 F 71 16 178/74 H 95 11/22/20 08:00 11/22/20 08:00 11/22/20 08:00 11/22/20 08:00 11/22/20 08:00 General: Alert, In no apparent distress HEENT: Atraumatic, PERRLA, EOMI Neck: Supple, JVD not distended Respiratory: Clear to auscultation bilaterally, Normal air movement Cardiovascular: Regular rate/rhythm, Normal S1 S2 Gastrointestinal: Normal bowel sounds, No tenderness Musculoskeletal: No tenderness Integumentary: No rashes Neurological: Normal speech, Normal tone, Normal affect Lymphatics: No axilla or inguinal lymphadenopathy Laboratory Data at Discharge: WBC 8.20 K/uL (4.3-10.9) D 11/19/20 05:49 Hgb 10.6 g/dL (13.6-17.9) L 11/19/20 05:49 Hct 31.4 % (39.6-49.0) L 11/19/20 05:49 Plt Count 283 K/uL (152-406) 11/19/20 05:49 PT 14.8 SECONDS (9.5-12.5) H 11/18/20 20:25 INR 1.28 11/18/20 20:25 Sodium 139 mmol/L (136-145) 11/19/20 05:49 Potassium 3.9 mmol/L (3.5-5.1) 11/19/20 05:49 BUN 51 mg/dL (7-18) H 11/19/20 05:49 Creatinine 5.49 mg/dL (0.55-1.3) H* 11/19/20 05:49 Glucose 112 mg/dL (74-106) H 11/19/20 05:49 Magnesium 2.3 mg/dL (1.8-2.4) 11/18/20 20:25 Total Bilirubin 0.3 mg/dL (0.2-1.0) 11/19/20 05:49 AST 14 U/L (15-37) L 11/19/20 05:49 ALT 11 U/L (12-78) L 11/19/20 05:49 Alkaline Phosphatase 77 U/L (45-117) 11/19/20 05:49 Lipase 54 U/L (73-393) L 11/19/20 05:49 Home Medications: Gabapentin [Neurontin*] 300 mg PO BEDTIME 03/11/19 Latanoprost/Pf [Latanoprost 0.005% Eye Drop] 1 drop EACH EYE BEDTIME 03/11/19 Albuterol Sulfate [Albuterol Sulfate Hfa] 1 puff IH SEECOM PRN 08/12/20 Apixaban [Eliquis *] 1 tab PO Q12H 08/12/20 Fluticasone Propionate 1 spray IH BID 08/12/20 Lanthanum Carbonate [Fosrenol] 1 tab PO SEECOM 08/12/20 Pantoprazole [Protonix Tab*] 1 tab PO DAILY 08/12/20 Followup: NONE,NONE [Primary Care Provider] - Time spent managing pt's care (in minutes): 30
[2020-11-22 13:43] VITALS: O2SAT 95
[2020-11-22] MEDS: HYDROMORPHONE HCL 0.5 MG/0.5 ML INJ IV PRN (13:50)
[2020-11-22 20:16] VITALS: BP 154/73; TEMP 97.6
[2020-11-25 18:22] LABS: HBsAG Nonreactive (Nonreactive)
== END 2020-11-22 16:00 | DRG 542 ==
LOC: ER 16:21 → ERHOLD 23:41 → 2ND 11-19 00:34 → OBSVTOIN 11-20 13:21
PROVIDERS: ADMIT Internal Medicine; ATTEND Internal Medicine
PROC: 5A1D70Z Performance of Urinary Filtration, Intermittent, Less than 6 Hours Per Day (ICD-10-PCS; principal; 2020-11-20)
PROC: 5A1D70Z Performance of Urinary Filtration, Intermittent, Less than 6 Hours Per Day (ICD-10-PCS; 2020-11-22)
DX: M80.08XA Age-related osteoporosis with current pathological fracture, vertebra(e), initial encounter for fracture (principal); E43 Unspecified severe protein-calorie malnutrition; N18.6 End stage renal disease; I13.2 Hypertensive heart and chronic kidney disease with heart failure and with stage 5 chronic kidney disease, or end stage renal disease; I50.22 Chronic systolic (congestive) heart failure; Z68.29 Body mass index [BMI] 29.0-29.9, adult; E11.22 Type 2 diabetes mellitus with diabetic chronic kidney disease; E21.3 Hyperparathyroidism, unspecified; D63.1 Anemia in chronic kidney disease; I73.9 Peripheral vascular disease, unspecified; I25.10 Atherosclerotic heart disease of native coronary artery without angina pectoris; Z95.0 Presence of cardiac pacemaker; Z95.5 Presence of coronary angioplasty implant and graft; Z99.2 Dependence on renal dialysis; Z20.822 Contact with and (suspected) exposure to COVID-19
CPT/HCPCS: 36415; 71045; 72170; 72192; 80048; 80076; 81003; 81015; 83690; 83735; 83880; 84484; 85025; 85610; 85652; 86317; 87040; 87086; 87088; 87340; 90935; 93005; 97110; 97161; 97530; 99285; G0257; G0378; J1170; J2270; J2405; J7030; U0003

== ENCOUNTER 2020-11-27 20:59 | Emergency (ER) | payer OTHER ==
--- OUTSIDE RECORDS SUMMARY | 2020-11-27 21:10 | XMS REPORT | Continuity of Care Document ---
:1935 Author Organization [facility] t Address [address] [place] [address] Care Team Providers Name Role Phone Jeffrey Garcia MD Primary Care Physician Jeffrey Garcia MD Attending Clinician JEFFREY GARCIA Attending Clinician Unavailable JEFFREY GARCIA Admitting Clinician Unavailable Payers Payer Name Policy Type Policy Effective Date Expiration Date Sour ce Number HUMANA - MEDICARE [id number] 2018 VLADIMIR Valentine MGD CAREHUMANA 00:00:00 - Medical MEDICARE Center [id number]/[id number] 019-PresentMaps Contracted Problems Condition Condition Condition Status Onset Resolution Last Treating Co mments Source Name Details Category Date Date Treatment Clinician Date Acute Acute Disease Active VLADIMIR Spencer hypoxemic hypoxemic 5-18 [facility] - respirator respirator 00:00: Me dical y failure y failure 00 Cent er ESRD (end ESRD (end Disease Active Met [...] l AV fistula AV fistula Disease Active 2019-0 M ethodi infection infection 6-07 st 00:00: Hospita 00 l Arterioven Arterioven Disease Active 0 M ethodi ous ous 8-20 st fistula fistula 00:00: Hospita occlusion occlusion 00 l Allergies, Adverse Reactions, Alerts Allergy Allergy Status Severity Reaction(s) Onset Inactive Treating Comm ents Source Name Type Date Date Clinician Adhesive Propensi Active [facility] to 5[facility]16 [facility] - adverse 00:00: Medical reaction 00 Center s Losartan Propensi Active [facility] -Hydroch ty to 5-16 [facility] - lorothia adverse 00:00: Medical zide reaction 00 Center s Penicill Propensi Active [facility] ins ty to 5-16 [facility] - adverse 00:00: Medical reaction 00 Center s Penicill DA Active [facility] ins 2-07 Clear 00:00: Sandy 00 [facility] Latex Propensi Active Hives Blisterin Metho di ty to 2-[address] adverse 00:00: Hospita reaction 00 l s to drug Adhesive Propensi Active Other (See blisters Methodi Tape-Nellie ty to Comments) 6-17 st icones adverse 00:00: Hospita reaction 00 l s to drug Penicill Propensi Active Swelling Meth alyson ins ty to 8-20 st adverse 00:00: Hospita reaction 00 l s to drug Family History Family Member Diagnosis Comments Start Date Stop Date Source Natural mother Heart disease [facility] Natural mother Hypertension [facility] Natural mother Stroke [facility] Natural mother Diabetes [facility] Natural mother Heart attack [facility] Natural father Depression [facility] Natural father Heart disease [facility] Natural father Hypertension [facility] Social History Social Habit Start Date Stop Date Quantity Comments Source Sex Assigned At [facility] Tobacco use and 2019-09-09 2019-09-09 Never used [facility] exposure 00:00:00 00:00:00 Hospital Alcohol intake 2019-09-09 2019-09-09 Current [facility] 00:00:00 00:00:00 non-drinker of Hospital alcohol (finding) Smoking Status Start Date Stop Date Source Never sm[facility] Medications Ordered Filled Start Stop Current Ordering Indication Dosage Frequency Signature Comments Components Source Medication Medication Date Date Medication? Clinician (SIG) Name Name latanoprost Yes latanopros [facility] (XALATAN) 5-20 t 0.005 % [facility] - 0.005 % 20:50: eye drops Medic al ophthalmic 30 Center solution albuterol Yes 2{puff} Inhale [address] HFA 5-20 puffs by [facility] - (VENTOLIN 20:50: mouth via Med ical HFA) 90 30 inhaler. [place] mcg/actuati on inhaler apixaban Yes 2.5mg Take 2.[address] (Eliquis) 5-20 mg by [facility] - 2.5 mg Tab 20:50: mouth Medica l tablet 30 every 12 Center (twelve) hours. fluticasone Yes 1{spray Q.5D [address] propionate 5-20 } Nasal [facility] - (FLONASE) 20:50: route 2 Medic al 50 30 (two) Center mcg/actuati times on nasal daily. spray montelukast Yes 10mg QD Take [address] (SINGULAIR) 5-20 by mouth Luke s - 10 mg 20:50: nightly. Medical tablet 30 Center polyethylen Yes 17g Take [address] e glycol 5-20 by mouth. [facility] - (GLYCOLAX) 20:50: Medical 17 gram 30 Center packet terazosin 2020- No 10mg Take [address] (HYTRIN) 10 5-20 05-20 by mouth. Genna kes - MG capsule 15:10: 00:00 Medica l 02 :00 Center lanthanum 2020- No 1000mg Take 1,[address] (FOSRENOL) 5-20 05-20 mg by [facility] - 1000 MG 15:10: 00:00 mouth. Medical chewable 02 :00 Center tablet sevelamer 2020- No 1600mg Take [address] (RENVELA) 5-20 06-19 tablets [facility] - 800 mg 00:00: 23:59 (1,600 mg Medic al tablet 00 :00 total) by Center mouth 3 (three) times daily with meals for 30 days. fentaNYL 2020- No APPLY 1 [facility] (DURAGESIC) 4-30 05-20 PATCH [facility] - 25 mcg/hr 00:00: 00:00 EVERY 72 Med ical patch 00 :00 HOURS Center AFTER REMOVING PREVIOUS PATCH pantoprazol Yes 40mg QD Take [address] [facility] e 4-28 by mouth [facility] - (PROTONIX) 00:00: daily. Medic al 40 MG 00 Center tablet cyclobenzap 2020- No 5mg QD Take [address] rine 4-18 05-20 by mouth [facility] - (FLEXERIL) 00:00: 00:00 every Medic al 5 MG tablet 00 :00 morning. Cent er sucralfate Yes 1g Q.25D Take [address] (CARAFATE) 3-27 by mouth 4 Tiana es - 1 gram 00:00: (four) Medical tablet 00 times Center daily. gabapentin Yes [facility] (NEURONTIN) 3-07 [facility] - 300 MG 00:00: Medical capsule 00 Center terazosin 2019-0 Yes 10mg Q.5D Take 10 mg Me [facility]odi (HYTRIN) 10 6-[address] MG capsule 22:30: (two) Hospit a 43 times a l day. gabapentin 2019-0 Yes 300mg QD Take 300 Me [facility] (NEURONTIN) 6-[address] 300 mg 22:30: mouth Hospita capsule 43 daily. l lanthanum 2020-0 Yes 1000mg Q.[id number] Chew 1,000 [facility]i (FOSRENOL) 6-[id number] 1000 MG 22:30: 3D (three) Hospita chewable 43 times a l tablet day with meals. pioglitazon 2019-0 Yes 15mg QD Take 15 mg Methodi e (ACTOS) 6-[address] 15 MG 22:30: daily. Hospita tablet 43 l latanoprost 2019-0 Yes 1[drp] QD Administer [facility] (XALATAN) 6-11 [...] 500 MG tablet acetaminoph 2020-0 Yes 500mg Q.[id number] Take 500 Methodi en 6-[id number] (TYLENOL) 22:30: 3D mouth [...] cholecalcif 2020-0 Yes QD Take by Met hodi xenia, 6-[address] vitamin D3, 22:30: daily. Hosp maco (VITAMIN D3 43 l ORAL) terazosin 2020-0 Yes 10mg Q.5D Take 10 mg Me [facility]odi (HYTRIN) 10 6-[address] MG capsule 22:30: (two) Hospit a 43 times a l day. gabapentin 2020-0 Yes 300mg QD Take 300 Me thodi (NEURONTIN) 6-[address] 300 mg 22:30: mouth Hospita capsule 43 daily. l lanthanum 2020-0 Yes 1000mg Q.48342740 Chew 1,000 [facility] (FOSRENOL) 6-[id number] 1000 MG 22:30: 3D [...] 500 MG tablet acetaminoph 2020-0 Yes 500mg Q.01907173 Take 500 Methodi en 6-[id number] (TYLENOL) 22:30: 3D mouth [...] cholecalcif 2020-0 Yes QD Take by Met hodi xenia, 6-[address] vitamin D3, 22:30: daily. Hosp maco (VITAMIN D3 43 l ORAL) Vital Signs Vital Name Observation Time Observation Value Comments Source Heart rate 2020-08-16 19:53:00 78 /min [facility] Respiratory rate 2020-08-16 19:53:00 14 /min [facility] Oxygen saturation in 2020-08-16 19:53:00 97 /min [facility] Arterial blood by Medical Ce nter Pulse oximetry Systolic blood 2020-08-16 19:00:00 127 mm[Hg] [facility] Diastolic blood 2020-08-16 19:00:00 59 mm[Hg] [facility] Body temperature 2020-08-16 19:00:00 36.06 Marilee [facility] Body weight 2020-08-14 12:05:00 89.4 kg [facility] BMI 2020-08-14 12:05:00 26.73 kg/m2 [facility] Body height 2020-08-12 22:32:00 182.9 cm [facility] Procedures Procedure Date / Time Performed Performing Clinician Dipak e POCT-GLUCOSE METER 2020-08-16 18:54:00 [facility] POCT-GLUCOSE METER 2020-08-16 11:56:00 [facility] POCT-GLUCOSE METER 2020-08-16 08:23:00 Wang Garcia [facility] XR CHEST 1 VIEW PORTABLE 2020-08-16 06:02:00 Marcela Swanson [facility] / BEDSIDE [facility] CBC W/PLT COUNT & AUTO 2020-08-16 04:06:00 Marcela Swanson [facility] BASIC METABOLIC PANEL (7) 2020-08-16 04:06:00 Marcela Swanson [facility] MAGNESIUM 2020-08-16 04:06:00 Marcela Swanson [facility] PHOSPHORUS 2020-08-16 04:06:00 MicMarcela castillo [facility] ALBUMIN 2020-08-16 04:06:00 Marcela Swanson [facility] POCT-GLUCOSE METER 2020-08-15 20:39:00 Wang Garcia [facility] POCT-GLUCOSE METER 2020-08-15 15:23:00 Wang Gracia [facility] CYTOLOGY 2020-08-15 14:27:00 Rony Jose [facility] US THORACENTESIS 2020-08-15 13:48[facility] PORTABLE 2020-08-15 13:47:00 Buddy George [facility] BEDSIDE [facility] POCT-GLUCOSE METER 2020-08-15 11:23:00 Wang Garcia [facility] CYTOLOGY 2020-08-15 08:14:00 Rony Jose [facility] POCT-GLUCOSE METER 2020-08-15 07:20:00 Wang Garcai [facility] XR CHEST 1 VIEW PORTABLE 2020-08-15 05:45:00 MicMarcela castillo [facility] BEDSIDE [facility] CBC W/PLT COUNT & AUTO 2020-08-15 03:46:00 Marcela Swanson [facility] BASIC METABOLIC PANEL (7) 2020-08-15 03:46:00 MicMarcela castillo [facility] MAGNESIUM 2020-08-15 03:46:00 MicMarcela castillo [facility] PHOSPHORUS 2020-08-15 03:46:00 MicMarcela castillo [facility] ALBUMIN 2020-08-15 03:46:00 MicMarcela castillo [facility] POCT-GLUCOSE METER 2020-08-14 19:45:00 Wang Garcia [facility] POCT-GLUCOSE METER 2020-08-14 15:26:00 Chano Garciakarmen [facility] POCT-GLUCOSE METER 2020-08-14 07:18:00 Wang Garcia [facility] XR CHEST 1 VIEW PORTABLE 2020-08-14 06:44:00 MicMarcela castillo [facility] CBC W/PLT COUNT & AUTO 2020-08-14 04:59:00 MiclatMarcela [facility] HEMOGLOBIN A1C 2020-08-14 04:59:00 TheJoselo johnson [facility] BASIC METABOLIC PANEL (7) 2020-08-14 04:58:00 MiclatMarcela [facility] MAGNESIUM 2020-08-14 04:58:00 MiclatMarcela [facility] PHOSPHORUS 2020-08-14 04:58:00 MiclatMarcela [facility] ALBUMIN 2020-08-14 04:58:00 MiclatMarcela [facility] HEMODIALYSIS INPATIENT 2020-08-14 00:31:18 [facility] PO[facility]SE METER 2020-08-13 20:22:00 [facility] PO[facility]SE [facility]ER 2020-08-13 16:47:00 Wang Garcia [facility] HEPATITIS B SURFACE 2020-08-13 13:58:00 [facility] HEPATITIS B CORE 2020-08-13 13:58:00 [facility]TIB[facility], TOTAL [facility] US THORACENTESIS 2020-08-13 13:13:00 Jose Uribe [facility] XR CHEST 1 VIEW PORTABLE 2020-08-13 13:03:00 Kenn Naranjo [facility] BODY FLUID CELL COUNT 2020-08-13 12:51:[address] [facility] WITH DIFFERENTIAL [facility] FUNGUS CULTURE + SMEAR 2020-08-13 12:51:00 Jose Uribe [facility] GLUCOSE, BODY FLUID 2020-08-13 12:51:00 Jose Uribe [facility] LACTATE DEHYDROGENASE 2020-08-13 12:51:[address] [facility] ([facility]), BODY FLUID [facility] PROTEIN, BODY FLUID 2020-08-13 12:51:00 Rony Jose [facility] BODY FLUID CULTURE + GRAM 2020-08-13 12:51:00 Jose Uribe [facility] POCT-GLUCOSE METER 2020-08-13 12:10:00 Wang Garcia [facility] 2D ECHO W/ DOPPLER 2020-08-13 11:29:43 [facility] (CW/PW/COLOR) [facility] SARS-COV2/INFLUENZA/RSV 2020-08-13 08:31:[address] [facility] RT-PCR [facility] D-DIMER 2020-08-13 08:31:00 Micsct [facility] B-TYPE NATRIURETIC FACTOR 2020-08-13 08:31:00 [facility] (BNP[facility] PT/APTT 2020-08-13 08:31:00 [facility] XR CHEST 1 VIEW PORTABLE 2020-08-13 08:03:00 [facility] POCT-GLUCOSE METER 2020-08-13 07:49:00 Wang [facility] CT CHEST WITHOUT IV 2020-08-13 06:51:00 Johana Seth [facility] - CONTRAST [facility] BLOOD CULTURE 2020-08-13 05:48:00 Haily Bullock [facility] CBC W/PLT COUNT & AUTO 2020-08-13 05:48:00 Marcela Swanson [facility] COMPREHENSIVE METABOLIC 2020-08-13 05:48:00 [facility] MAGNESIUM 2020-08-13 05:48:00 [facility] PHOSPHORUS 2020-08-13 05:48:00 [facility] POCT-GLUCOSE METER 2020-08-12 20:54:00 Wang Garcia [facility] Plan of Care Planned Activity Planned Date Details Comments Source Future Scheduled 2020-11-28 INFLUENZA VACCINE (#1) [facility] 00:00:00 [code = INFLUENZA Medical Ce nter VACCINE (#1)] Future Scheduled 2020-03-[address] [facility] Test 00:00:00 (12+) [code = [facility] DEPRESSION SCREENING (12+)] Future Scheduled 2020-03-30 FALLS RISK SCREENING [facility] - Test 00:00:00 [code = FALLS RISK Medical C enter SCREENING] Future Scheduled 2019-03-[address] [facility] - Test 00:00:00 WELLNESS (YEAR 2 or Medical Center FIRST YEAR if no IPPE) [code = MEDICARE ANNUAL WELLNESS (YEAR 2 or FIRST YEAR if no IPPE)] Future Scheduled 2002 PNEUMOCOCCAL 65+ YRS [facility] - Test 00:00:00 (1 of 1 - [facility] [id number] PCV13) [code = PNEUMOCOCCAL 65+ YRS (1 of 1 - [id number] PCV13)] Future Scheduled 1987-10-01 SHINGLES VACCINES ([address] [facility] - Test 00:00:00 of 2) [code = SHINGLES Medic al Center VACCINES (1 of 2)] Future Scheduled 1956 DTAP/TDAP/TD VACCINES [facility] 00:00:00 (1 - Tdap) [code = Medical C enter DTAP/TDAP/TD VACCINES (1 - Tdap)] Future Scheduled 1949 COVID-19 VACCINE (1) [facility] Test 00:00:00 [code = COVID-[address] VACCINE (1)] Future Scheduled 65+ [facility]OCOCCAL [facility] Test VACCINE (1 of 4 - PCV13) [code = 65+ PNEUMOCOCCAL VACCINE (1 of 4 - PCV13)] Future Scheduled DIABETES: [facility]INAL [facility] EX[facility] [code = DIABETES: RETINAL EYE EXAM] Future Scheduled DIABETIC FOOT EX[facility] Test [code = DIABETIC FOOT EXAM] Future Scheduled COVID-19 [facility]ACCINE (1) [facility] [code = COVID-19 VACCINE (1)] Future Scheduled SHINGLES VACCINES (#1) [facility] Test [code = SHINGLES VACCINES (#1)] Future Scheduled INFL[facility]ENZA [facility]ACCINE [facility] Test [code = INFLUENZA VACCINE] Future Scheduled 65+ [facility]OCOCCAL [facility] Test VACCINE (1 of 4 - PCV13) [code = 65+ PNEUMOCOCCAL VACCINE (1 of 4 - PCV13)] Future Scheduled DIABETES: RETINAL EYE [facility] EXAM [code = DIABETES: RETINAL EYE EXAM] Future Scheduled DIABETIC FOOT EXAM [facility] Test [code = DIABETIC FOOT EXAM] Future Scheduled COVID-19 VACCINE (1) [facility] Test [code = COVID-19 VACCINE (1)] Future Scheduled SHINGLES VACCINES (#1) [facility] Test [code = SHINGLES VACCINES (#1)] Future Scheduled INFLUENZA [facility]ACCINE [facility] Test [code = INFLUENZA VACCINE] Encounters Start End Encounter Admission Attending Care Care Encounter Source Date/Time Date/Time Type Type Clinicians Facility Department ID 2020-08-12 2020-08-16 [facility] [id number] 20 [id number] [facility] 19:14:00 20:50:00 [facility] 2020-08-13 2020-08-13 Travel [facility] [id number] [facility] 00:00:00 00:00:00 [facility] Results Test Description Test Time Test Comments Results Result Comments Source Fungus culture + smear 2020-09-11 23:33:00 Test Item Value Reference Range Interpretation Comme nts Result (test code = 6463-4) No fungus isolated in 28 days Fungus Smear (test code = 1406) No fungi seen [facility] [id number] 23:33:00 Test Item Value Reference Range Interpretation Comments CULTURE (BEAKER) (test No fungus isolated in code = 1095) 28 days FUNGUS SMEAR ([facility]) No fungi seen (test code = 1406) POCT-GLUCOSE [id number] 10:02:00 Test Item Value Reference Range Interpretation Comments POC-GLUCOSE METER 114 mg/dL 70-110 H : TESTED A T SLSL 1317 (BEAKER) (test code [facility], = 1538) [place] [id number]: Puppet Master/Techni patti ID = [id number] for Buff ord, Lisa POCT-GLUCOSE [id number] 10:01:00 Test Item Value Reference Range Interpretation Comments POC-GLUCOSE METER 161 mg/dL 70-110 H : TESTED A T [facility] 1317 (BEAKER) (test code [facility], = 1538) [place] [id number]: Puppet Master/Techni patti ID = [id number] for Will Patricia reads POCT-GLUCOSE [id number] 09:59:00 Test Item Value Reference Range Interpretation Comments POC-GLUCOSE METER 141 mg/dL 70-110 H : TESTED A T [facility] 1317 (BEAKER) (test code [facility], = 1538) [place] [id number]: Puppet Master/Techni patti ID = [id number] for Buff ord, Lisa POCT-GLUCOSE [id number] 09:55:00 Test Item Value Reference Range Interpretation Comments POC-GLUCOSE METER 138 mg/dL 70-110 H : TESTED A T [facility] 1317 (BEAKER) (test code [facility], = 1538) [place] [id number]: Puppet Master/Techni patti ID = [id number] for Buff ord, Lisa POC-Glucose [id number] 08:57:00 Test Item Value Reference Range Interpretation Comments POC-Glucose Meter (test 170 mg/dL 70-110 H : TE STED AT [facility] code = 1538) 1317 [facility], [place] [id number]: Puppet Master/Techni patti ID = [id number] for Beulah Yuen Lab Interpretation (test Abnormal code = 63554-0) [facility] [id number] 08:57:00 Test Item Value Reference Range Interpretation Comments POC-GLUCOSE METER 170 mg/dL 70-110 H : TESTED A T [facility]SL 1317 (BEAKER) (test code [facility], = 1538) [place] [address] 478: Puppet Master/Techni patti ID = [id number] for Osmel h, Beulah POCT-GLUCOSE [id number] 08:52:00 Test Item Value Reference Range Interpretation Comments POC-GLUCOSE METER 147 mg/dL 70-110 H : TESTED A T [facility]SL 1317 (BEAKER) (test code [facility], = 1538) [place] [address] 478: Puppet Master/Techni patti ID = [id number] for Osmel h, Beulah POCT-GLUCOSE [id number] 08:50:00 Test Item Value Reference Range Interpretation Comments POC-GLUCOSE METER 135 mg/dL 70-110 H : TESTED A T [facility]SL 1317 (BEAKER) (test code [facility], = 1538) [place] [id number]: Puppet Master/Techni patti ID = [id number] for Osmel h, Beulah POCT-GLUCOSE [id number] 08:47:00 Test Item Value Reference Range Interpretation Comments POC-GLUCOSE METER 188 mg/dL 70-110 H : TESTED A T SLSL 1317 (BEAKER) (test code [facility], = 1538) [place] [id number]: Puppet Master/Techni patti ID = [id number] for Nwad iufu, Michelle POCT-GLUCOSE [id number] 08:43:00 Test Item Value Reference Range Interpretation Comments POC-GLUCOSE METER 163 mg/dL 70-110 H : TESTED A T SLSL 1317 (BEAKER) (test code [facility], = 1538) [place] [id number] 478: Puppet Master/Techni patti ID = [id number] for Buff ord, Lisa POCT-GLUCOSE [id number] 08:38:00 Test Item Value Reference Range Interpretation Comments POC-GLUCOSE METER 219 mg/dL 70-110 H : TESTED A T SLSL 1317 (BEAKER) (test code [facility], = 1538) [place] [address]: Puppet Master/Techni patti ID = [id number] for Lisa Vasquez Blood Culture - Routine (Right Venipuncture)2020-08-18 10:01:00 Test Item Value Reference Range Interpretation Comments Result (test code = No growth in 5 days 6463-4) [facility] [id number] 10:01:00 Test Item Value Reference Range Interpretation Comments CULTURE (BEAKER) (test No growth in 5 days code = 1095) BLOOD [id number] 10:01:00 Test Item Value Reference Range Interpretation Comments CULTURE (BEAKER) (test No growth in 5 days code = 1095) [id number] 15:43:00Medical Cytology Report Case: [id number] Authorizing Provider: Jose Uribe MD Collected: 08/15/2020 08:14 AM Ordering Location: [facility] ICU Received: 08/15/2020 08:14 AM Pathologist: Raquel Connelly MD Specimen: Pl eural, Right RIGHT PLEURAL FLUID (CYTOSPINS AND CELL BLOCK): - NEGATIVE FOR MALIGNANCY - ABUNDANT EOSINOPHILS ARE PRESENTSigning Pathologist Direct Phone Line: [phone] electronically signed by Raquel Connelly MD on 08/17/2020 at 3:43 PM The specimen source has been corrected. Dr. Jose Uribe has been notified of thiscorrection on 08/17/20 at 3:30 pm. [id number], [id number]; ESRD on HD TTSat, last HD on [...] and fixed in formalin at 2:51 pm on21Performed. [facility], Department of [facility]ology, [address] [place] [address], [facility], Department of Pathology, [address] [place] [address], [facility], Department of Pathology, [address] [place] [address], Jlmpmlfn 2020-08-17 12:56:00 Test Item Value Reference Range Interpretation Comments Case Report (test code Medical Cytology = 104) Report Case: [id number] Authorizing Provider: Jose Uribe MD Collected: 08/15/2020 02:27 PM Ordering Location: [address] Med/Surg Received: 08/16/2020 08:08 AM Pathologist: Raquel Connelly MD Specimen: Pleural, Right DIAGNOSIS (test code = [id number] 3220) FuZzEwMzNcZnRuYmpcdWMx IHtccnRmMVxlcGljOTIwMl tcnmNzRSNncPTsZ9Dppuex IBlhLV2gLY3brMffoRIwsA QmTXBcJyClz5mfr735bHIe q3ygLQIKmykryGa9yJwtR1 3gv0S8KstbN18nzGLbGJqk bGFpblxmczIwIFBMRVVSQU gzUSQXF0zZUBQUVPOWFDDx P7zNU6VGXX4TZGIYLHXWWN eQZTMDO5KKZWodvHczTMXz WSEyATOJNXJEDSkUWG5BYB mpAdqTB5D9PZ1KW0YZPFFD YDRCIeBRNOlJE22TSiPPUY Pqdf16BKX9BuIpa0J8GTX3 IBKhHFKki4qwWZJveULgYk EwMzNcZnRuYmpcdWMxXGRl PhTkn4tzp823xJIik1pnTS FaZlI3gEDgWRCxkSKoS371 PNWqQHnmb7vnm6AdBVGzgT Rtc6S2ULQNdzfzmMd0lFnl L57jp8P8DfnbV2thKQJhIV WsV0RbDK4sRAWzIib1JQP8 AZF4MTCcTJVuH8AzIS7vXL JmbHNqHAk5n6oejIpyQNLv SPD7r3fyLRnqmyFiAV8hoo 3zhHd2r1wpvdKhEUIuSDNa tUAVVCInD5XadAzjBc7tvU d0sRalAytvRLO2Bbb9SQ3b mw92lun6vVnyURDymnsvNr N6AImoCKOwqxqfBVx2KIjr ODYlhVQ8SKRjnNSlI9OwTH ZjBX8lvvp7PKR6KMzyBMEr PpJ0OKPjaIXgHAWqcFptJT xqt760NXH4JoLeBC2tM1Be i7P1wJ0ubRYuBPDtfEYgQd IbBGOxix2hyPCcNSmmw8Lo ATZ7xzK0xSRgcNAnNUTzHk Q7NYntGN5may49ZHAxRNK7 ty8mfISljBpirdExsOHmQK gbG8TrHISrb726LMGdH3Gw ZOWet5X8boFbSzLyWTRecA M7nbU4DSGrIY2zgonap9xo WIagXJplGJZrvuL9wvN4QG PvzRDiU3TenY0eVOVpHR8o yjkhp4ocOLW4VPlcBUWcDK G7WuJjGLWub0Xdvmo8QjDi p0QvtKKcGYqkD04ea565RC HlqvWqU3uvkKUsnmvlaOTr tayuMUtdmrP2MNJeVRkxie euHKLeDSwwM1slEwGtNOKe mUjmMAkxo1NxKDCrXGXxIc DlzQWfEEHpKoa4BFIktTOt GVCqUpQbQ8zmlkgqMrNTSY Abl2wmW3kjlTFQiFWuI3Dd UGhvbmUgTGluZTogNzEzLT i1WE65QXZ3CurrQFF9mG== CPT Code(s) (test code u7edvAQyWLVrpYF1LzNhYL = 3357) Eex5khf4IabRTwoSWdTHjy dPQyukBhoc59ePY5kT21PY 4jSRZbAwP1WKTrydM3Sik9 DDYjIPSjvFRsP004y4ukk0 jztcCjmTN5kXouFPIqKFVi YWluXGZzMjAgODgxMDgsID y1ZrO6YEOrqv0= CLINICAL DATA (test r5siuJTgFDSlqKE3CaPcKL code = 3355) Hcp4dyq1VdgQSexDUpSZyp uMVifjGptp42jBN0sK00DS 7kBCMjJaL2HSDbfrB0Pgi5 ITBjAULooPRhX955c5rud5 dgejMmsPL5uWbyZXEsKNIf YWluXGZzMjAgUmlnaHQgcG tlwXZgvJIkVpC0z3hrbjvz sShvwE4zpGPnSrXpOB0pgJ CdOBhiOMLonhRezz9zPRKa ayKsQEv5IiAAO8EDUyKNLX EyBOPSJnkqil4bZWHkkxIh KHXchNDnPJ7px4XkZUEbYL LaqPSilUidevXwHF50OOpc zbqihH7ubXk0HZcktkN6kZ 6mMQGlcpR5uPAuxwJEOZSt bGVlZFxwYXJ9 SPECIMEN SOURCE (test s2qshUDwXGOheRE6GsCoVC code = 3377) Neg5ozt1CyiKCtuTCqIBsu iKXijdYjjs24yVU7cW30PZ 6zDAZfZnK5JPItmwV6Udl6 YHUoFQZbqJNnZ053f7vdf5 jaryGqmGE4aFbhTKNuMGOy YWluXGZzMjAgUExFVVJBTC wgUklHSFQsIEZMVUlEXHBh cn0= GROSS DESCRIPTION (test x5ijbRIjMLGztIH3DqUjEA code = 3366) Svo0raz6BbuVZmkKJnBQie cCYaijTchc35dBB3cS11VN 0lRSNuEhN1PTBzvgO7Mri6 EVZoNFNqcBVcU504f2jbx2 vilbZqlOB6vNkgFDGqWUZq HPiyUQNjDwLlOhRpMKb3QT WbGYZlWK3tpfYwtM9dHVzl Kqo1oNL3XBIcYQRwtkGyAO GkW7h6n6ZjjW0jOKShTTEw ZPxyTIZhr7GcEESaWYYeEW XgdVqgXqwaA1bslYNmwINo JWWafRGqassnH9x0z0EmJ7 tablCaKWWxtWP7lECaYDPq FHv6e8QynyJiROVjs83bYY WotYudWKKoYJNxqRZ9FZYp Kns8MTOrnW3pDs6ugNRmkW 3sXQLrYUY6JDDhpE4jc95l MDUvMjAvMjEgXHBhcn0= MICROSCOPIC DESCRIPTION q3gkgPAyXNJmlJW2FbVwLS (test code = 3371) Uqi8soo2FdnFVccVCfIVnf rQJowvZfvs81tAW4aU84BI 1gRDMkKcA5GNWsdyO6Qbw6 CSThSRAdrZNxB275k5tcv8 gwvgXgiXO5dMonJZHaZZGp FUaaOPWlKmQzCNHsYw2aaO VkLiBccGFyfQ== STATEMENT OF ADEQUACY Satisfactory (test code = 2757) Gross assessment was [facility]'s performed at (test code Medical Center, = 2777) Department of Pathology, [address] [place] [address], [place] [address], Technical component was [facility] performed at (test code Medical [place], = 2778) Department of Pathology, [address] [place] [address], Professional component . [facility] [place] was performed at ([facility], Department code = 2779) of Pathology, [address] [place] [address], [facility] Farm[facility]Y2021-05-21 12:56:00Medical Cytology Report Case: [id number] Aut horizing Provider: Jose Uribe MD Collected: 08/15/2020 02:27 PM Ordering Location: [address] Med/Surg Received: 08/16/2020 08:08 AM Pathologist: Raquel Connelly MD Specimen: Pleural, Right PLEURAL, RIGHT, FLUID (CYTOSPINS AND CELL BLOCK): - PREDOMINANTLY BLOOD; NEGATIVE FOR MALIGNANCY Signing Pathologist Direct Phone Line: [phone] signed by Raquel Connelly MD on 08/17/2020 at 12:56 [id number], 16072Wdyff pleural effusion, history of renal cell carcinoma in 1986; ESRD; DM2,CHF, s/p cardiac pacemaker placement, recent long hospitalization for upper GI bleedPLEURAL, RIGHT, FLUIDReceived 450 mls bloody fluid; prepared 4 cytospins and cell block(A2) - cell block prepared using cytorich red fixative to lyse red blood cells and it was fixed in formalin at 12:45 pm on 08/16/20Performed. [facility], [facility] of [facility]ology, [address] [place] [address], [facility], [facility] of [facility]ology, [address] [place] [address], [facility], Department of Pathology, [address] [place] [address], Lkictmd Pleural [id number] 17:36:00 Test Item Value Reference Range Interpretation Comments Glucose, 166 mg/dL SAMPLE GROSSLY Pleural Fluid HEMOLYZED. Ref erence (test code = range approxima bubba 2346-5) that found in s mirela. LAKE (test code Performing Lab = LAKE) EZ [facility] [address] [place] [address] Wolfgang Polanco MD, PhD, ZANE [facility] FarmBody fluid culture + gram [id number] 09:13:00 Test Item Value Reference Range Interpretation Comments Result (test code = 6463-4) No growth Gram Stain Result (test No organisms seen code = 1123) [facility] FarmBODY FLUID CULTURE + GRAM [id number] 09:13:00 Test Item Value Reference Range Interpretation Comments CULTURE (BEAKER) (test No growth code = 1095) GRAM STAIN RESULT 1+ White blood cells (BEAKER) (test code = seen 1123) GRAM STAIN RESULT No organisms seen (BEAKER) (test code = 45589) RAD, CHEST, 1 VIEW, NON [id number] 07:29:00Reason for exam:->Pleural effusionShould this be performed at the bedside?->Yes [facility] 1935 Sex: MFINAL REPORT CHEST AP PORTABLE SEMIERECT Comparison exam: 08/15/2020 History provided: Pleural effusion Heart size normal. Right subclavian pacemaker. Small bilateral pleural effusions persist with associated atelectatic change. Vascularity within normal limits. Signed: Buddy George MDReport Verified Date/Time: 08/16/2020 07:29:39 Reading Location: [facility] Radiology ReadingRoom XR chest 1 view portable / [id number] 07:29:00Interface, External Ris In - 08/16/2020 7:32 AM CDTFINAL REPORT CHEST AP PORTABLE SEMIERECT Comparison exam: 08/15/2020 History provided: Pleural effusion Heart size normal. Right subclavian pacemaker. Small bilateral pleural effusions persist with associated atelectatic change.Vascularity within normal limits. Signed: Buddy George MDReport Verified Date/Time: 08/16/2020 07:29:39 Reading Location: [facility] Radiology [facility] 2020-08-16 05:34:00 Test Item Value Reference Range Interpretation Comments Sodium (test code = 137 meq/L 034-606 8865-2) Potassium (test code 4.0 meq/L 3.6-5.5 Specime n = 2823-3) moderately hemolyzed Chloride (test code = 98 meq/L 98-106 2075-0) CO2 (test code = 20 meq/L -8-9) BUN (test code = 59 mg/dL 10-26 H 3094-0) Creatinine (test code 7.71 mg/dL 0.5-1.2 H Specim en = 2160-0) moderately hemolyzed Glucose (test code = 140 mg/dL 70-110 H 2345-7) Calcium (test code = 9.8 mg/dL 8.5-10.5 10469-2) EGFR (test code = INSUFFICIE NT 10000-4) CLINICAL DATA T O CALCULATE ESTIMATED GFR. LAKE (test code = LAKE) Puppet Master ID - [id number] r ID - [id number] r ID - [id number] r ID - [id number] r ID - [id number] ID - [id number] ID - [id number] ID - [id number] ID - [id number] ID - [id number] Lab Interpretation Abnormal (test code = 60898-8) [facility]2021-05-20 05:34:00 Test Item Value Reference Range Interpretation Comments Albumin (test code = 2.9 g/dL 3.5-5 [place] n 98[address]-2) moderately hemolyzed LAKE (test code = LAKE) Puppet Master ID - [id number] r ID - [id number] r ID - [id number] r ID - [id number] Lab Interpretation Abnormal (test code = 26232-0) [facility] FarmBASI METABOLIC [id number] 05:34:00 Test Item Value Reference Range Interpretation [...] 1092) DATA TO CALCULA TE ESTIMATED GFR. Puppet Master ID - [id number] ID - [id number] ID - [id number] ID - [id number] ID - [id number] ID - [id number] ID - [id number] ID - issp07Kaobzwpk ID - [id number] ID -[id number] 05:34:00 Test Item Value Reference Range Interpretation Comments ALBUMIN (BEAKER) 2.9 g/dL 3.5-5.0 L Specimen mo derately (test code = 1145) hemolyzed Puppet Master ID - [id number] ID - [id number] ID - [id number] ID - [id number] 05:33:00 Test Item Value Reference Range Interpretation Comments Magnesium (test code = 2.6 mg/dL 1.5-3 Speci men 87608-9) moderately hemolyzed LAKE (test code = LAKE) Puppet Master ID - [id number] Lab Interpretation Normal (test code = 01474-8) [facility] FarmMAGNESIUM2021-05-20 05:33:00 Test Item Value Reference Range Interpretation Comments MAGNESIUM (BEAKER) 2.6 mg/dL 1.5-3.0 Specimen moderately (test code = 627) hemolyzed Puppet Master ID - [id number] 05:30:00 Test Item Value Reference Range Interpretation Comments Phosphorus (test code 5.8 mg/dL 2.5-4.5 H Specim en = 2777-1) moderately hemolyzed LAKE (test code = LAKE) Puppet Master ID - [id number] Lab Interpretation Abnormal (test code = 07318-4) [facility] FarmPHOSPHORUS2021-05-20 05:30:00 Test Item Value Reference Range Interpretation Comments PHOSPHORUS (BEAKER) 5.8 mg/dL 2.5-4.5 H Specimen moderately (test code = 604) hemolyzed Puppet Master ID - [id number] with platelet count + automated [id number] 05:10:00 Test Item Value Reference Range Interpretation Comments WBC (test code = 6690-2) 10.4 See_Comment H [A utomated message] The system [email or web address] generated this result transmitted ref erence range: 4.0 - 10 .0 K/L. The refe rence range was not u sed to interpret this result as normal/abnor mal. RBC (test code = 789-8) 4.13 See_Comment L [Au tomated message] The system [email or web address] generated this result transmitted ref erence range: 4.20 - 5 .80 M/L. The refe rence range was not u sed to interpret this result as normal/abnor mal. MCHC (test code = 786-4) 31.3 See_Comment L [A utomated message] The system [email or web address] generated this result transmitted ref erence range: 32.0 - 3 6.0 GM/DL. The refe rence range was not u sed to interpret this result as normal/abnor mal. Hematocrit (test code = 36.8 % 36-50 4544-3) MCV (test code = 787-2) 89.1 fL 82-99 MCH (test code = 785-6) 27.8 pg 27-33 RDW (test code = 788-0) 17.6 % 12-15 H Platelets (test code = 212 See_Comment [Aut omated message] 777-3) The system [email or web address] generated this result transmitted ref erence range: 150 - 43 0 K/CU MM. The referen ce range was not u sed to interpret this result as normal/abnor mal. MPV (test code = 10.2 fL 6-11.5 76081-5) nRBC (test code = 413) 0 See_Comment [Aut omated message] The system [email or web address] generated this result transmitted ref erence range: 0 - 0 /1 00 WBC. The refere nce range was not u sed to interpret this result as normal/abnor mal. % Neutros (test code = 67 % 429) % Lymphs (test code = 14 % 430) % Monos (test code = 12 % 431) % Eos (test code = 432) 6 % % Baso (test code = 437) 1 % # Neutros (test code = 7.03 See_Comment [Aut omated message] 670) The system [email or web address] generated this result transmitted ref erence range: 1.80 - 8 .00 K/L. The refe rence range was not u sed to interpret this result as normal/abnor mal. # Lymphs (test code = 1.46 See_Comment L [Auto mated message] 414) The system [email or web address] generated this result transmitted ref erence range: 1.48 - 4 .50 K/L. The refe rence range was not u sed to interpret this result as normal/abnor mal. # Monos (test code = 1.24 See_Comment [Autom ated message] 415) The system [email or web address] generated this result transmitted ref erence range: 0.00 - 1 .30 K/L. The refe rence range was not u sed to interpret this result as normal/abnor mal. # Eos (test code = 416) 0.60 See_Comment H [Au tomated message] The system [email or web address] generated this result transmitted ref erence range: 0.00 - 0 .50 K/L. The refe rence range was not u sed to interpret this result as normal/abnor mal. # Baso (test code = 417) 0.06 See_Comment [A utomated message] The system [email or web address] generated this result transmitted ref erence range: 0.00 - 0 .20 K/L. The refe rence range was not u sed to interpret this result as normal/abnor mal. Immature 0 % 0-0 Granulocytes-Relative (test code = 2801) Lab Interpretation (test Abnormal code = 85439-9) [facility] W/PLT COUNT & AUTO [id number] 05:10:00 Test Item Value Reference Range Interpretation [...] PERCENT (BEAKER) (test code = 2801) U/S, [id number] 14:00:00Laterality?->RightReason for exam:- >Rigth pleural effusionLabs to be Ordered:->No Labs Needed [facility] : 1935 Sex: MFINAL REPORT [...] space was accessed with a one-stick 5 Azerbaijani sheathed needle. Approximately 450 cc of bloody fluid was aspirated. The catheter was removed and a sterile dressing was applied. The patient tolerated the procedure well without apparent complications. The fluid was submitted to the laboratory as requested. IMPRESSION: Uneventful ultrasound guided thoracentesis. The fluid wasbloody Signed: Buddy Georgeort Verified Date/Time: 08/15/2020 14:00:53 Reading Location: [facility] Radiology Reading Room US [id number] 14:00:00Interface, External Ris In - 08/15/2020 2:03 PM CDTFINAL REPORT ULTRASOUND GUIDED RIGHT THORACENTESIS History provided: Pleural effusion PROCEDURE: Written informed consent was obtained. The chest was examined with ultrasound and a suitable site for thoracentesis was identified in the right hemithorax. The skin over this area was prepped and draped in sterile fashion. Lidocaine 2% was used for local anesthesia. With ultrasound guidance, the pleural space was accessed with a one- stick 5 Azerbaijani sheathed needle. Approximately 450 cc of bloody fluid was aspirated. The catheterwas removed and a sterile dressing was applied. The patient tolerated the procedure well without apparent complications. The fluid was submitted to the laboratory as requested. IMPRESSION: Uneventful ultrasound guided thoracentesis. The fluid was bloody Signed: Buddy George MDReport Verified Date/Time: 08/15/2020 14:00:53 Reading Location: [facility] Radiology Reading [facility] 1 VIEW, NON [id number] 13:57:00 Reason for exam:->post thoraShould this be performed at the bedside?->Yes [facility] : 1935 Sex: MFINAL REPORT Chest AP portable semierect Comparison exam: 08/15/2020 at 0502 hours History provided: Status post right thoracentesis Diminished volume of pleural fluid on the right. No pneumothorax. Signed: Buddy George Verified Date/Time: 08/15/2020 13:57:52 Reading Location: [facility] Radiology Reading Room RAD, CHEST, 1 VIEW, NON [id number] 07:55:00Reason for exam:->Pleural effusionShould this be performed at the bedside?->Yes [facility] 1935 Sex: MFINAL REPORT Chest AP portable semierect Comparison exam: 08/14/2020 History provided: Pleural effusion Heart size normal. Moderate bilateral pleural effusions are unchanged. Normal pulmonary vascularity. Signed: Buddy George Verified Date/Time: 08/15/2020 07:55:05 Reading Location: [facility] Radiology Reading Room Electronically signed by: BUDDY GEORGE on 07:55 AMBASIC METABOLIC [id number] 04:22:00 Test Item Value Reference Range Interpretation [...] 1092) DATA TO CALCULA TE ESTIMATED GFR. Puppet Master ID - [id number] ID - [id number] ID - [id number] ID - PMRJ51Humbkwub ID - [id number] ID - MQHI47Zafrssme ID - PVCB21Owwomztc ID - OMGQ05Kenmnbtk ID - RUMO42Mrykfjbp ID - [id number] 04:16:00 Test Item Value Reference Range Interpretation Comments MAGNESIUM (BEAKER) (test code = 2.5 mg/dL 1.5-3.0 627) Puppet Master ID - [id number] 04:14:00 Test Item Value Reference Range Interpretation Comments ALBUMIN (BEAKER) (test code = 1145) 2.9 g/dL 3.5-5.0 L Puppet Master ID - [id number] ID - [id number] ID - [id number] ID - [id number] 04:13:00 Test Item Value Reference Range Interpretation Comments PHOSPHORUS (BEAKER) (test code = 5.3 mg/dL 2.5-4.5 H 604) Puppet Master ID - [id number] W/PLT COUNT & AUTO [id number] 03:56:00 Test Item Value Reference Range Interpretation [...] 0-0 PERCENT (BEAKER) (test code = 2801) Hemoglobin [id number] 21:06:00 Test Item Value Reference Range Interpretation Comments Hemoglobin A1C (test code 5.6 % 4.3-6.1 = 4548-4) LAKE (test code = LAKE) Puppet Master ID - [id number] Lab Interpretation (test Normal code = 44516-7) [facility] FarmHEMOGLOBIN [id number] 21:06:00 Test Item Value Reference Range Interpretation Comments HEMOGLOBIN A1C (BEAKER) (test code = 5.6 % 4.3-6.1 368) Puppet Master ID - [id number] B core antibody, [id number] 11:02:00 Test Item Value Reference Range Interpretation Comments Hep B Core Total Ab Nonreactive Nonreactive (test code = 24880-8) LAKE (test code = LAKE) Puppet Master ID - SPEEDY M Lab Interpretation (test Normal code = 88154-1) [facility] FarmHEPATITIS B CORE ANTIBODY, [id number] 11:02:00 Test Item Value Reference Range Interpretation Comments HEPATITIS B CORE TOTAL ANTIBODY Nonreactive Nonreactive (BEAKER) (test code = 497) Puppet Master ID - SPEEDY MRAD, CHEST, 1 VIEW, NON [id number] 07:26:00Reason for exam:->Pleural effusionShould this be performed at the bedside?->Yes [facility] : 1935 Sex: MFINAL REPORT Chest AP portable Comparison exam: 08/13/2020 History provided: Follow-up pleural effusion Heart size magnified by projection. Multilead right subclavian pacemaker. Moderate pleural effusion persists on the right with smaller effusion on the left. Pulmonary vascularity within normal limits. Signed: Buddy Georgeeport Verified Date/Time: 08/14/2020 07:26:17 Reading Location: [facility] Radiology Reading Room BASIC METABOLIC [id number] 05:59:00 Test Item Value Reference Range Interpretation [...] 1092) DATA TO CALCULA TE ESTIMATED GFR. Puppet Master ID - LITOOperator ID - LITOOperator ID - LITOOperator ID - LITOOperator ID - LITOOperator ID - LITOOperator ID - LITOOperator ID - LITOOperator ID - LITOOperator ID - [id number] 05:59:00 Test Item Value Reference Range Interpretation Comments MAGNESIUM (BEAKER) (test code = 2.7 mg/dL 1.5-3.0 627) Puppet Master ID - LITOCBC W/PLT COUNT & AUTO [id number] 05:57:00 Test Item Value Reference Range Interpretation [...] 0-0 PERCENT (BEAKER) (test code = 2801) [id number] 05:56:00 Test Item Value Reference Range Interpretation Comments PHOSPHORUS (BEAKER) (test code = 7.1 mg/dL 2.5-4.5 H 604) Puppet Master ID - [id number] 05:52:00 Test Item Value Reference Range Interpretation Comments ALBUMIN (BEAKER) (test code = 1145) 2.9 g/dL 3.5-5.0 L Puppet Master ID - LITOOperator ID - LITOOperator ID - LITOOperator ID - LITOPOCT- GLUCOSE [id number] 20:34:00 Test Item Value Reference Range Interpretation Comments POC-GLUCOSE METER 132 mg/dL 70-110 H : TESTED A T SLSL 1317 (GUERLINE) (test code SANDY BECKY NT [facility], = 1538) [facility] 77 478: Puppet Master/Techni patti ID = [id number] for Swathi Orta POCT-GLUCOSE [id number] 16:59:00 Test Item Value Reference Range Interpretation Comments POC-GLUCOSE METER 173 mg/dL 70-110 H : Notified RN/MD: TESTED (GUERLINE) (test code AT SLSL 1317 [place] = 1538) [facility], [facility] [address]: Puppet Master/Techni patti ID = [id number] for Osmel alesha Lorita U/S, [id number] 16:07:00Laterality?->RightReason for exam:- >Right pleural effusionLabs to be Ordered:->Body Fluid Culture (w/Gram Stain, C\T\S)Labs to be Ordered:->CytologyLabs to be Ordered:->Fungal CultureLabs to be Ordered:->Glucose+LDH+ProteinLabs to be Ordered:->Cell CountCOMM[facility]ACHName: [facility] : 1935 Sex: MFINAL REPORT Ultrasound guided right thoracentesis Clinical History: Large right pleural effusion. Modality: Ultrasound. Sedation: None. Outreach Worker:Kenn Naranjo M.D. Animal Control Licensing Worker: None. 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 Physician Procedure Type of Study TTE procedure:2DECHO W DOPPLER(CW/PW/COLOR) (Routine) Indications:Suspected hypertensive heart disease.Clinical HistoryRENAL CELL CARCINOMA, FRACTURE, DM, ASTHMA, ANXIETY, ANEMIA,Height: 72 inches Weight: 91.63 kg (202 lbs) BSA: 2.14 m^2 BMI: 27.4 kg/m^2HR: 69 bpm BP:125/59 mmHg Summary Technically difficult study with poor endocardial delineation. Grossly normal LVsystolic function with an estimated LVEF of 55-59%. Grade 1 diastolic dysfunction. Grossly normal RVsize and systolic function. The aortic valve is not well visualized. Unable to determine if there isthe presence of a valve prosthesis versus calcification. There is moderate aortic regurgitation. LA size is mildly enlarged. MIld pulmonary hypertension; estimated PA systolic pressure of 46 mm Hg, assuming an RA pressure of 3 mm Hg. No pericardial effusion. No previous study to compare from. Signature Findings Left Ventricle Difficult to assess segmental wall motion;overall LV systolic function appears normal based on available views. The visual ejection fraction was estimated 55-59 %. Grade 1 diastolic dysfunction (impaired relaxation and low-normal LA pressure). Left Atrium LA size is mildly enlarged. LA index 32ml/m2. Right Ventricle The right ventricular chamber size and systolic function are within normal limits. Right Atrium RA size is normal. Aortic Valve The aortic valve is not well visualized. Unable to determine if there is the presence of a valve prosthesis versus calcification. There is no aortic stenosis. There is moderate aortic regurgitation. Mitral Valve MV is partially visualized. Moderate MV leaflet thickening. Moderate mitral annular calcification. Tricuspid Valve The tricuspid valve is not well visualized. Mild tricuspid regurgitation.Estimated peak systolic PA pressure is 45-50 mmHg (mild pulmonary hypertension) . Pulmonic Valve No evidence of pulmonary regurgitation. Aorta Aortic root size (SInus of Valsalva diameter) is indeterminate (not well seen) . Pericardium No pericardial effusion is visualized. IVC/SVC/PA/PV/Pleural The inferior vena ca va is not well visualized. Chambers/Structures Left Atrium LA Volume: 156.7 ml LA Area: 32.32 cm^2 LA Vol. Index: 73 ml/m^2 Left Ventricle LVIDd: 4.55 cm LVEDV:94.8 ml LVIDs: 3.47 cm LVESV:49.85 ml LV Septum Diastolic: 2.18 cm LV Septum Systolic: 2.67 cm LV PW Diastolic: 1.67 cm LV FS: 23.7 % LV PW Systolic: 2.64 cm LVOT Diameter: 1.25 cm LVEF: 47.4 % Right Atrium RA Systolic Pressure: 10 mmHg Right Ventricle RV Systolic Pressure: 45.19 mmHg Aorta Ao Root S of Deb.: 4.3 cm Doppler/Quantitative Measurements Mitral Valve MV Peak E- Wave: 1.75 m/s Peak Gradient: 12.2 mmHg Peak Velocity: 1.75 m/s Mean Velocity: 0.82 m/s Area (continuity): 0.7 cm^2 Mean Gradient: 3.65 mmHg MR Velocity: 4.71 m/s MV VTI: 39.57 cm MV Karson. Peak: Tissue Doppler E' Septal Velocity: 0.04 m/s E' Lateral Velocity: 0.09 m/s Aortic Valve Peak Velocity: 1.32 m/s Mean Velocity: 1.01 m/s Peak Gradient: 6.92 mmHg Mean Gradient: 4.45 mmHg AV Area (continuity): 1.05cm^2 AV VTI: 26.31 cm AR P1/2t: 472.1 msec Deceleration Time: 1628 msec AV DVI: 0.86 LVOT Peak Velocity: 1.38 m/s Peak Gradient: 7.57 mmHg Mean Velocity: 0.96 m/s Mean Gradient: 3.99 mmHg LVOT Diameter: 1.25 cm LVOT VTI: 22.57 cm LVOT Area: 1.23 cm^2 LVOT SV:27.68 ml LVOT CO: 1.91 l/min LVOT CI: 0.89 l/min/m^2 Tricuspid Valve Estimated RVSP: 45.59 mmHg Estimated RAP: 10 mmHg TR Velocity: 2.97 m/s TR Gradient: 35.19 mmHg Pulmonic Valve Peak Velocity: 1.15 m/s Peak Gradient: 5.32 mmHg Estimated PASP: 45.19 mmHgHassler Health FarmHepatitis B surface [id number] 14:53:00 Test Item Value Reference Range Interpretation Comments HBsAg Screen (test code Nonreactive Nonreactive = 5195-3) LAKE (test code = LAKE) Puppet Master ID - [id number] Lab Interpretation (test Normal code = 42084-0) [facility] FarmHEPATITIS B SURFACE [id number] 14:53:00 Test Item Value Reference Range Interpretation Comments HEPATITIS B SURFACE ANTIGEN (2) Nonreactive Nonreactive (BEAKER) (test code = 2585) Puppet Master ID - [id number] fluid cell count with [id number] 14:27:00 Test Item Value Reference Range Interpretation Comments Appearance (test Cloudy Clear A code = 9335-1) Color (test code = Brown Colorless, A 6824-7) Straw RBCs (test code = 605528 See_Comment H [Automate d 30657-8) message] The system which generated this result transmitted reference range : <=1 /cu mm. The reference range was not used to interpret this result as normal/abnormal . Adjusted WBC Count 2120 See_Comment H [Automat ed (test code = message] The 44794-2) system which generated this result transmitted reference range : <=5 /cu mm. The reference range was not used to interpret this result as normal/abnormal . Lining Cells (test 0 See_Comment [Automat ed code = 13514-1) message] The system which generated this result transmitted reference range : <=1 /cu mm. The reference range was not used to interpret this result as normal/abnormal . % Segs (test code = 10 % 12619-8) % Lymphs (test code 19 % = 64538-9) % Monos (test code = 38 % 18371-1) % Eos (test code = 30 % 02883-8) % Baso (test code = 3 % 12573-8) Interpretation (test Abundant code = 41077-8) eosinophils. Agree with the above differential count. Pathologist: (test Raquel Connelly, code = 2620) Johnnie (electronic signature) Container Body Fluid EDTA Tube (test code = 2873) Lab Interpretation Abnormal (test code = 70155-5) [facility] Farm[facility] FL[facility] CE[facility] COUNT WITH [id number] 14:27:00 Test Item Value Reference Range Interpretation Comments APPEARANCE FLUID Cloudy Clear A (BEAKER) (test code = 510) COLOR FLUID Brown Colorless, Straw A (BEAKER) (test code = 511) RBC FLUID (BEAKER) 165252 /cu mm See_Comment H [Automa elizabeth (test [...] = 2619) with the above differential count. [id number]-[id number]-[id number] Raquel Connelly, 10 (BEAKER) (test M.D. (electronic code = 2620) signature) CONTAINER BODY EDTA Tube FLUID (BEAKER) (test code = 2873) Lactate dehydrogenase (LDH), body [id number] 13:16:00 Test Item Value Reference Range Interpretation Comments LDH, Fluid (test 607 U/L code = 30390-2) LAKE (test code = Absence of reference LAKE) range indicates that normals have not been defined.Assay performance has not been validated for this type of specimen. Puppet Master ID - [id number] [facility] FarmLACTATE DEHYDROGENASE (LDH), BODY [id number] 13:16:00 Test Item Value Reference Range Interpretation Comments LACTATE DEHYDROGENASE FLUID (BEAKER) 607 U/L (test code = 634) Absence of reference range indicates that normals have not been defined.Assay performance has not been validated for this type of specimen.Puppet Master ID - [id number], body [id number] 13:13:00 Test Item Value Reference Range Interpretation Comments Protein, Fluid (test 4.5 g/dL code = 2881-1) LAKE (test code = Absence of reference LAKE) range indicates that normals have not been defined.Assay performance has not been validated for this type of specimen. Puppet Master ID - [id number] [facility] FarmPROTEIN, BODY [id number] 13:13:00 Test Item Value Reference Range Interpretation Comments PROTEIN FLUID (BEAKER) (test code = 4.5 g/dL 579) Absence of reference range indicates that normals have not been defined.Assay performance has not been validated for this type of specimen.Puppet Master ID - [id number], body [id number] 13:12:00 Test Item Value Reference Range Interpretation Comments Glucose, Body Fluid 164 mg/dL (test code = 2344-0) LAKE (test code = Absence of reference LAKE) range indicates that normals have not been defined.Assay performance has not been validated for this type of specimen. Puppet Master ID - [id number] [facility] FarmGLUCOSE, BODY [id number] 13:12:00 Test Item Value Reference Range Interpretation Comments GLUCOSE, BODY FLUID (BEAKER) (test 164 mg/dL code = 1528) Absence of reference range indicates that normals have not been defined.Assay performance has not been validated for this type of specimen.Puppet Master ID - [id number], CHEST, 1 VIEW, NON [id number] 13:06:00Reason for exam:->post thoracentesisShould this be performed at the bedside?->Yes [facility] 1935 Sex: MFINAL REPORT [...] MDReport Verified Date/Time: 08/13/2020 13:06:22 Reading Location: [facility] Radiology Reading Room POCT- GLUCOSE [id number] 12:22:00 Test Item Value Reference Range Interpretation Comments POC-GLUCOSE METER 188 mg/dL 70-110 H : Notified RN/MD: TESTED ([facility]) (test code AT [address] = 1538) [facility] [address]: Puppet Master/Techni patti ID = [id number] for Gab White Prothrombin time/[id number] 09:55:00 Test Item Value Reference Interpretation Comments Range Protime (test code = 11.0 See_Comment Final 5902-2) Information (Auto Output) [Automated message] The system which generated this result transmitted reference range : 9.3 - 12.0 seconds. The reference range was not used to interpret this result as normal/abnormal . INR (test code = 0.99 See_Comment Final 6301-6) Information (Auto Output) [Automated message] The system which generated this result transmitted reference range : <=5.90. The reference range was not used to interpret this result as normal/abnormal . LAKE (test code = RECOMMENDED LAKE) COUMADIN/WARFARIN INR THERAPY RANGESSTANDARD DOSE: 2.0 - 3.0 Includes: PROPHYLAXIS for venous thrombosis, systemic embolization; TREATMENT for venous thrombosis and/or pulmonary embolus.HIGH RISK: Target INR is 2.5-3.5 for patients with mechanical heart valves. Lab Interpretation Normal (test code = 02244-7) [facility] FarmPROTHROMBIN TIME/[id number] 09:55:00 Test Item Value Reference Range Interpretation Comments PROTIME (BEAKER) 11.0 seconds 9.3-12.0 Final Infor mation (test code = 759) (Auto Outp ut) INR (BEAKER) (test 0.99 See_Comment Final Inf ormation code = 370) (Auto Output) [Automated mess age] The system [employer] generated this result transmitted ref erence range: <=5.90. The reference range was not used to int erpret this result as normal/abnormal . RECOMMENDED COUMADIN/WARFARIN INR THERAPY RANGESSTANDARD DOSE: 2.0 - 3.0 Includes: PROPHYLAXIS forvenous thrombosis, systemic embolization; TREATMENT for venous thrombosis and/or pulmonary embolus.HIGH RISK: Target INR is 2.5-3.5 for patients with mechanical heart valves.SARS-CoV2/Influenza/RSV RT-PCR (Symptomatic ONLY)2020-08-13 09:41:00 Test Item Value Reference Range Interpretation Comments SARS-COV2/RT-PCR (test Negative Negative code = 10834-8) Influenza A RT-PCR Negative Negative (test code = 67134-2) Influenza B RT-PCR Negative Negative (test code = 58982-1) RSV by RT-PCR (test Negative Negative Performa nce of the code = 13773-9) Xpert Xpress SARS-CoV-2/Flu/ RSV test has only been established in nasopharyngeal swab specimens. Use of the Xpert Xpress SARS-CoV-2/Flu/ RSV test with other spec imen types has not b een assessed and performance characteristics are unknown. As wi th any molecular test, mutations withi n the targeted geneti c regions identif ied by the Xpert Xpres s SARS-CoV-2/Flu/ RSV test could affect pr donna and/or probe bi nding resulting in fa ilure to detect the pres ence of virus or the vi alyse being detected less predictably.Neg ative results do not preclude SARS-CoV-2, Inf luenza A/B, or RSV inf ection and should not be used as the sole bas is for treatment or ot her patient managem ent decisions. Res ults from the Xpert Xpress SARS-CoV-2/Flu/ RSV test should be corre lated with the clinic al history, epidemiological data, and other data available to th e clinician evalu ating the patient. I nvalid test results ma y occur from improper s pecimen collection; chinmay lure to follow the jessica mmended sample collecti on, handling, and s torage procedures; deanna hnical error. False ne gative results may occ ur if virus is presen t at levels below th e analytical limi t of detection (LOD: 131 copies/mL). Vi ral nucleic acid ma y persist in vivo , independent of virus viability. Dete ction of analyte target( s) does not imply that the corresponding v irus(es) are infectious or are the causative a gents for clinical sy mptoms. Recent patient exposure to FluMist or other live attenuated influenza vacci kristen may cause inaccurat e positive result s.This test has been authorized by [employer] under an EUA for use by authorized laboratories. This test is only au thorized for the duratio n of the declaration yudelka t circumstances e xist justifying the authorization o f emergency use o f in vitro diagnosti c tests for detection a nd/or diagnosis of CO VID-19 under Section 5 64(b)(1) of the Federal Food, Drug and Cosmet ic Act, 21 U.S.C. 360bbb-3(b)(1), unless the authorizati on is terminated or r evoked sooner. Fact Sh eet for Healthcare Prov iders: https://www.[employer] /Documents/Xper t%20Xpre ss%56XKOH-CzJ-9 -Flu-RSV /3024508%20Rev .%20B%20 HCP%20Fact%20Sh eet.pdf Fact Sheet for Healthcare Jasmyn ents: https://www.[employer] /Documents/Xper t%20Xpre ss%24OSJG-GvK-9 -Flu-RSV /3024507%20Rev .%20B%20 Patient%20Fact% 20Sheet. pdf Lab Interpretation Normal (test code = 58916-3) [facility]RSV [id number] 09:41:00 Test Item Value Reference Range Interpretation Comments SARS-COV2/RT-PCR Negative Negative (test code = 0451287) INFLUENZA A RT-PCR Negative Negative (test code = 0562236) INFLUENZA B RT-PCR Negative Negative (test code = 3271778) RSV RT-PCR (test Negative Negative Performanc e of the Xpert code = 2339433) Xpress SARS- CoV-2/Flu/RSV test has only b een established in nasopharyngeal swab specimens. Use of the Xpert Xpress SARS-CoV-2/Flu/ RSV test with other spec imen types has not been as sessed and performance characteristics are unknown. As wi th any molecular test, mutations within the targ eted genetic regions identified by t he Xpert Xpress SARS-CoV -2/Flu/RSV test could affe [...] sooner.Fact She et for Healthcare Prov iders: https://www.[employer]al[employer].Brandtone/D ocuments/Xpert% 20Xpress%2 5ASXR-UeV-9-Flu -RSV/302-4 508%20Rev.%20B% 20HCP%20Fa ct%20Sheet.pdfF act Sheet for Healthcare Patients: https://www.[employer].Brandtone/D ocuments/Xpert% 20Xpress%2 4EHUT-QsK-9-Flu -RSV/302-4 507%20Rev.%20B% 20Patient% 20Fact%20Sheet. pdf N-[id number] 09:34:00 Test Item Value Reference Range Interpretation Comments D-Dimer, Quant (test 10.27 See_Comment H Final I nformation code = 85891-6) (Auto Output ) [Automated message] The system which generated this result transmitted reference range : <0.50 MG/L FEU. The reference range was not used to interpr et this result as normal/abnormal . LAKE (test code = REGARDING D-DIMER LAKE) RESULTS: The 98% NPV (Negative Predictive Value) for DVT/PE exclusion is 0.50 mg/L FEU as suggested by the financial associate and as approved by the FDA. Lab Interpretation Abnormal (test code = 61976-8) [facility] FarmD-[id number] 09:34:00 Test Item Value Reference Range Interpretation Comments D-DIMER QUANTITATIVE 10.27 MG/L FEU <0.50 H Final Information (GUERLINE) (test code = (Auto Output) 671) REGARDING D-DIMER RESULTS: The 98% NPV (Negative Predictive Value) for DVT/PE exclusion is 0.50 mg/LFEU as suggested by the financial associate and as approved by the FDA.PT/[id number] 09:33:00 Test Item Value Reference Interpretation Comments Range Protime (test code = 11.1 See_Comment Final 5902-2) Information (Auto Output) [Automated message] The system which generated this result transmitted reference range : 9.3 - 12.0 seconds. The reference range was not used to interpret this result as normal/abnormal . INR (test code = 1.00 See_Comment Final 6301-6) Information (Auto Output) [Automated message] The system which generated this result transmitted reference range : <=5.90. The reference range was not used to interpret this result as normal/abnormal . PTT (test code = 27.4 See_Comment Final 14369-3) Information (Auto Output) [Automated message] The system which generated this result transmitted reference range : 23.0 - 35.0 seconds. The reference range was not used to interpret this result as normal/abnormal . LAKE (test code = RECOMMENDED LAKE) COUMADIN/WARFARIN INR THERAPY RANGESSTANDARD DOSE: 2.0 - 3.0 Includes: PROPHYLAXIS for venous thrombosis, systemic embolization; TREATMENT for venous thrombosis and/or pulmonary embolus.HIGH RISK: Target INR is 2.5-3.5 for patients with mechanical heart valves. Lab Interpretation Normal (test code = 39854-6) [facility] FarmPT/[id number] 09:33:00 Test Item Value Reference Range Interpretation Comments PROTIME (BEAKER) (test 11.1 seconds 9.3-12.0 Final Information code = 759) (Auto Output) INR (BEAKER) (test 1.00 See_Comment Final Inf ormation code = 370) (Auto Output) [Automated mess age] The system ic h generated this result transmit elizabeth reference range [...] is 2.5-3.5 for patients with mechanical heart valves.B-type Natriuretic Factor (BNP)2020-08-13 09:16:00 Test Item Value Reference Range Interpretation Comments BNP (test code = 79401-5) 1072 pg/mL 0-100 H LAKE (test code = LAKE) Puppet Master ID - [id number] Lab Interpretation (test Abnormal code = 11722-0) [facility] FarmB-TYPE NATRIURETIC FACTOR (BNP)2020-08-13 09:16:00 Test Item Value Reference Range Interpretation Comments B-TYPE NATRIURETIC PEPTIDE 1072 pg/mL 0-100 H (BEAKER) (test code = 700) Puppet Master ID - [id number], CHEST, 1 VIEW, NON [id number] 08:27:00Reason for exam:->Pleural effusionShould this be performed at the bedside?->Yes [facility] 1935 Sex: MFINAL REPORT RAD, CHEST, 1 VIEW, NON DEPT INDICATION: Pleural effusion COMPARISON: None FINDINGS: Portable frontal view of the chest. IMPRESSION: Support Lines: None Lungs and pleura: Large right effusion with associated subsegmental atelectasis. No pneumothorax.Heart and mediastinum: Enlarged cardiac silhouette. Remote valvular surgical changes.Additional findings: None. Signed: JR Quiles Robert MDReport Verified Date/Time: 08/13/2020 08:27:00 Reading Location: [facility] Radiology Reading Room POCT- GLUCOSE [id number] 08:01:00 Test Item Value Reference Range Interpretation Comments POC-GLUCOSE METER 144 mg/dL 70-110 H : Notified RN/MD: TESTED ([facility]ER[facility]) (test code AT [facility] [address] = 1538) [facility] [address] Puppet Master/Techni patti ID = [id number] for Osmel h, Lorita CT, CHEST, WITHOUT [id number] 06:54:00Unlisted Reason for Exam - Click Yes and Enter Reason Below->No [facility] : 1935 Sex: MFINAL [...] Left lower lobe round atelectasis.Mild cardiomegaly. Signed: Amuta, Ruth Ann MDReport Verified Date/Time: 08/13/2020 06:54:56 [facility] IV [id number] 06:54:00Interface, External Ris In - 08/13/2020 6:58 AM CDTFINAL REPORT EXAM: CT ofthe chest, without contrast CLINICAL HISTORY: Pleural effusion [...] right and small left loculated pleural effusions. Near-complete atelectasis in the right lower lobe. Partial atelectasis in the right middle and right upper lobes. Two left lower lobe opacities consistent with round atelectasis. Calcified granuloma in the right lower lobe.VESSELS: Atherosc lerotic calcifications of the aorta and coronary arteries. No thoracic aortic aneurysm.HEART: Statuspost TAVR. Mild cardiomegaly. Pacemaker leads overlying the right atrium and right ventricle. Dense calcifications of the mitral valve annulus. No pericardial effusion.NICOLÁS AND MEDIASTINUM: Within normal limits.VISUALIZED UPPER ABDOMEN: Within normal limits.SOFT TISSUES: Right upper anterior chest wall pacemaker.BONES: Generalized osteopenia. Multilevel degenerative changes of the visualized spine with fibrotic and osteophytes. Mild thoracic dextrocurvature. IMPRESSION: Moderate to large right and small left loculated pleural effusions with associated compressive atelectasis. Left lower lobe round atelectasis.Mild cardiomegaly. Signed: Ruth Ann Campbell MDRdontaeort Verified Date/Time: 08/13/2020 06:54:56 [facility] Comprehensive metabolic [id number] 06:20:00 Test Item Value Reference Range Interpretation Comments Protein, Total (test 7.3 See_Comment [Autom ated code = 2885-2) message] The system which generated this result transmit elizabeth reference range : 6.0 - 8.5 gm/dL . The reference range was not u sed to interpret th is result as normal/abnormal . Albumin (test code = 2.9 g/dL 3.5-5 L 66536-8) Alkaline Phosphatase 93 U/L 30-115 (test code = 6768-6) Total Bilirubin (test 0.4 mg/dL 0.1-1.2 code = 1975-2) Sodium (test code = 135 meq/L 836-121 9785-2) Potassium (test code 4.7 meq/L 3.6-5.5 = 2823-3) Chloride (test code = 98 meq/L 98-106 2075-0) CO2 (test code = 22 meq/L 20-29 2028-9) BUN (test code = 50 mg/dL 10-26 H 3094-0) Creatinine (test code 6.16 mg/dL 0.5-1.2 H = 2160-0) Glucose (test code = 180 mg/dL 70-110 H 2345-7) Calcium (test code = 10.0 mg/dL 8.5-10.5 13430-9) AST (test code = 18 U/L 5-40 1920-8) ALT (test code = 12 U/L 5-50 1742-6) EGFR (test [place] = [place] [address]-8) CLINICAL DATA T O CALCULATE ESTIMATED GFR. LAKE (test code = LAKE) Puppet Master ID - [id number] ID - [id number] ID - [id number] ID - OUAM92Riadvyjn ID - [id number] ID - YEJX75Hmaumzmc ID - JQKT54Asjscptz ID - WVHZ93Yqoqbvld ID - NPTH50Uhxyvbvu ID - XYEU06Pixdebkw ID - QIBD62Iohwwiux ID - LHLI32Frbzilkr ID - TEFB28Dwhbcrsx ID - HKBI12Crkytzrw ID - TXSN54Kxxuhhok ID - [id number] Lab Interpretation Abnormal (test code = 01085-9) [facility] [id number] 06:20:00 Test Item Value Reference Range Interpretation Comments MAGNESIUM (BEAKER) (test code = 2.5 mg/dL 1.5-3.0 627) Puppet Master ID - [id number] ID - [id number] ID - EFIE83Desgccef ID - [id number] COMPREHENSIVE METABOLIC [id number] 06:20:00 Test Item Value Reference Range Interpretation [...] 1092) DATA TO CALCULA TE ESTIMATED GFR. Puppet Master ID - [id number] ID - [id number] ID - JYJG31Ntwqkxwk ID - FXOO30Cftydrvq ID - SMHE46Nrlsyhdg ID - YPCV92Wuhcxndh ID - VOXS33Tnxjdvvn ID - NXJQ12Ukkephpi ID - ZKRB56Abfbsgws ID - ICOZ83Ktepuilj ID - RARC93Kqdsoxoy ID - JFGN60Rhzftuql ID - TMHK29Zwgbdnbe ID - AZKP37Kfzteouu ID - FRHD25Mposlbos ID - [id number] 06:16:00 Test Item Value Reference Range Interpretation Comments PHOSPHORUS (BEAKER) (test code = 7.1 mg/dL 2.5-4.5 H 604) Puppet Master ID - [id number] W/PLT COUNT & AUTO [id number] 06:10:00 Test Item Value Reference Range Interpretation [...] PERCENT (BEAKER) (test code = 2801) POCT-GLUCOSE [id number] 21:06:00 Test Item Value Reference Range Interpretation Comments POC-GLUCOSE METER 200 mg/dL 70-110 H : TESTED A T [facility] [address] (BEAKER) (test code [address], = 1538) [facility] [address]: Puppet Master/Techni patti ID = [id number] for Geeta Meek [id number] 11:44:00 Test Item Value Reference Range Interpretation Comments GLUBED (test code = 145 MG/DL 70-110 H Performe d by certified GLUBED) desizing machine operator at [facility] AB HEPATITIS B [id number] 09:13:00 Test Item Value Reference Range Interpretation Comments AB HEPATITIS B CORE Negative Negative Performe d At: HD (test code = HBCAB) [facility] [address] [place], [place] [id number] yael Landry MD [phone] CBC W/AUTO [id number] 08:44:00 Test Item Value Reference Range Interpretation [...] (test code NO = MDIFF) BASIC METABOLIC [id number] 08:18:00 Test Item Value Reference Range Interpretation [...] 10.2 mg/dL 8.0-10.5 N CA) CBC W/AUTO [id number] 07:39:00 Test Item Value Reference Range Interpretation [...] MANUAL DIFF REQUIRED (test code = MDIFF) [id number] 22:28:00 Test Item Value Reference Range Interpretation Comments GLUBED (test code = 177 MG/DL 70-110 H Performe d by certified GLUBED) desizing machine operator at [facility] [id number] 18:20:00 Test Item Value Reference Range Interpretation Comments GLUBED (test code = 156 MG/DL 70-110 H Performe d by certified GLUBED) desizing machine operator at [facility] [id number] 12:15:00 Test Item Value Reference Range Interpretation Comments GLUBED (test code = 194 MG/DL 70-110 H Performe d by certified GLUBED) desizing machine operator at [facility] [id number] 07:42:00 Test Item Value Reference Range Interpretation Comments GLUBED (test code = 123 MG/DL 70-110 H Performe d by certified GLUBED) desizing machine operator at [facility] [id number] 00:18:00 Test Item Value Reference Range Interpretation Comments GLUBED (test code = 184 MG/DL 70-110 H Performe d by certified GLUBED) desizing machine operator at [facility] [id number] 20:10:00 Test Item Value Reference Range Interpretation Comments GLUBED (test code = 165 MG/DL 70-110 H Performe d by certified GLUBED) desizing machine operator at [facility] COVID 19 Asymptomatic IH [id number] 19:37:00 Test Item Value Reference Range Interpretation [...] perform moderate, high or waivedcomplexit y tests. [id number] 18:39:00 Test Item Value Reference Range Interpretation Comments GLUBED (test code = 131 MG/DL 70-110 H Performe d by certified GLUBED) desizing machine operator at [facility] [id number] 12:35:00 Test Item Value Reference Range Interpretation Comments GLUBED (test code = 147 MG/DL 70-110 H Performe d by certified GLUBED) desizing machine operator at [facility] [id number] 06:02:00 Test Item Value Reference Range Interpretation Comments GLUBED (test code = 120 MG/DL 70-110 H Performe d by certified GLUBED) desizing machine operator at [facility] BASIC METABOLIC [id number] 04:22:00 Test Item Value Reference Range Interpretation [...] code = 9.9 mg/dL 8.0-10.5 N CA) [id number] 04:22:00 Test Item Value Reference Range Interpretation Comments PHOSPHOROUS (test code = PHOS) 3.7 MG/DL 2.5-4.9 N [id number] 04:09:00 Test Item Value Reference Range Interpretation Comments GLUBED (test code = 122 MG/DL 70-110 H Performe d by certified GLUBED) desizing machine operator at [facility] CBC W/AUTO [id number] 04:05:00 Test Item Value Reference Range Interpretation [...] DIFF REQUIRED (test code NO = MDIFF) [id number] 18:00:00 Test Item Value Reference Range Interpretation Comments GLUBED (test code = 134 MG/DL 70-110 H Performe d by certified GLUBED) desizing machine operator at [facility] [id number] 16:40:00 Test Item Value Reference Range Interpretation Comments GLUBED (test code = 112 MG/DL 70-110 H Performe d by certified GLUBED) desizing machine operator at [facility] [id number] 12:38:00 Test Item Value Reference Range Interpretation Comments GLUBED (test code = 165 MG/DL 70-110 H Performe d by certified GLUBED) desizing machine operator at [facility] [id number] 06:22:00 Test Item Value Reference Range Interpretation Comments GLUBED (test code = 111 MG/DL 70-110 H Performe d by certified GLUBED) desizing machine operator at [facility] [id number] 05:16:00 Test Item Value Reference Range Interpretation Comments MAGNESIUM (test code = MAG) 1.87 mg/dL 1.80-2.40 N BASIC METABOLIC [id number] 04:52:00 Test Item Value Reference Range Interpretation [...] 10.9 mg/dL 8.0-10.5 H CA) CBC W/AUTO [id number] 04:48:00 Test Item Value Reference Range Interpretation [...] (test code NO = MDIFF) CBC W/AUTO [id number] 04:43:00 Test Item Value Reference Range Interpretation [...] MANUAL DIFF REQUIRED (test code = MDIFF) [id number] 03:58:00 Test Item Value Reference Range Interpretation Comments GLUBED (test code = 147 MG/DL 70-110 H Performe d by certified GLUBED) desizing machine operator at [facility] [id number] 16:28:00 Test Item Value Reference Range Interpretation Comments GLUBED (test code = 141 MG/DL 70-110 H Performe d by certified GLUBED) desizing machine operator at [facility] [id number] 12:52:00 Test Item Value Reference Range Interpretation Comments GLUBED (test code = 133 MG/DL 70-110 H Performe d by certified GLUBED) desizing machine operator at [facility] [id number] 08:35:00 Test Item Value Reference Range Interpretation Comments GLUBED (test code = 116 MG/DL 70-110 H Performe d by certified GLUBED) desizing machine operator at [facility] ACUTE HEPATITIS [id number] 06:11:00 Test Item Value Reference Range Interpretation [...] COMMENTS: At start of hemodialysisAB HEPATITIS B [id number] 06:11:00 Test Item Value Reference Range Interpretation Comments AB HEPATITIS B 3.2 mIU/mL See_Comment L Status of I mmunity SURFACE (test code = HBSAB) Anti-HBs Level --- I nconsis tent with Immun ity 0 .0 - 9.9Consistent w ith Immunity >9.9Performed A t: HD [facility] [address] [id number] ualetha Landry MD Ph:[phone] [Automated mess age] The system [email or web address] generated this result transmitted ref erence range: Immunity >9.9. The reference r lydia was not used to interpret this result as normal/abnor mal. COMMENTS: At start of hemodialysisBASIC METABOLIC [id number] 05:20:00 Test Item Value Reference Range Interpretation [...] code = 9.6 mg/dL 8.0-10.5 N CA) [id number] 05:20:00 Test Item Value Reference Range Interpretation Comments MAGNESIUM (test code = MAG) 1.83 mg/dL 1.80-2.40 CBC W/AUTO [id number] 05:01:00 Test Item Value Reference Range Interpretation [...] DIFF REQUIRED (test code NO = MDIFF) [id number] 20:34:00 Test Item Value Reference Range Interpretation Comments GLUBED (test code = 127 MG/DL 70-110 H Performe d by certified GLUBED) desizing machine operator at [facility] [id number] 16:21:00 Test Item Value Reference Range Interpretation Comments GLUBED (test code = 192 MG/DL 70-110 H Performe d by certified GLUBED) desizing machine operator at [facility] [id number] 14:46:00 Test Item Value Reference Range Interpretation Comments GLUBED (test code = 177 MG/DL 70-110 H Performe d by certified GLUBED) desizing machine operator at [facility] ACUTE HEPATITIS [id number] 11:40:00 Test Item Value Reference Range Interpretation [...] COMMENTS: At start of hemodialysisAB HEPATITIS B [id number] 11:40:00 Test Item Value Reference Range Interpretation Comments AB HEPATITIS B SURFACE (test code = HBSAB) COMMENTS: At start of hemodialysisCBC W/AUTO [id number] 08:37:00 Test Item Value Reference Range Interpretation [...] (test code NO = MDIFF) BASIC METABOLIC [id number] 08:00:00 Test Item Value Reference Range Interpretation [...] code = 11.3 mg/dL 8.0-10.5 H CA) [id number] 08:00:00 Test Item Value Reference Range Interpretation Comments MAGNESIUM (test code = MAG) 2.27 mg/dL 1.80-2.40 N [id number] 07:05:00 Test Item Value Reference Range Interpretation Comments GLUBED (test code = 134 MG/DL 70-110 H Performe d by certified GLUBED) desizing machine operator at [facility] [id number] 18:16:00 Test Item Value Reference Range Interpretation Comments GLUBED (test code = 118 MG/DL 70-110 H Performe d by certified GLUBED) desizing machine operator at [facility] [id number] 13:09:00 Test Item Value Reference Range Interpretation Comments GLUBED (test code = 146 MG/DL 70-110 H Performe d by certified GLUBED) desizing machine operator at [facility] - XR CHEST 2 [id number] 10:17:00 [facility] : 1935 Sex: M FAX: Navjot Byrd [phone] [place]: St: [facility] FAX: Shakeel Davis [phone] FAX: Luis Hoang MD [phone] Name: RADHA BLANCO [facility] : 1935 Age/S: 84/M [address] [place] [address] Blvd Unit #: [id number] Loc: G.3357 [place] [address] Phys: Luis Hoang MD Acct: [id number] Dis Date: Status: ADM IN PHONE #: [phone] Exam Date: 05/31/202059 FAX #: [phone] Reason: sob EXAMS: CPT CODE: [id number] XR CHEST 2 V [id number] EXAM: XR CHEST 2 VIEWS DATE: 05/31/2020 [...] Ash MD; Luis Hoang MD Technologist: Sunshine Gerard RT(R) Trnscrd Date/Time/By: 05/31/2020 (3817) : By: [id number] Orig Print D/T: S: 05/31/2020 (0660) PAGE 1 Signed [id number] 06:10:00 Test Item Value Reference Range Interpretation Comments GLUBED (test code = 136 MG/DL 70-110 H Performe d by certified GLUBED) desizing machine operator at [facility] [id number] 18:09:00 Test Item Value Reference Range Interpretation Comments GLUBED (test code = 130 MG/DL 70-110 H Performe d by certified GLUBED) desizing machine operator at [facility] [id number] 12:37:00 Test Item Value Reference Range Interpretation Comments GLUBED (test code = 155 MG/DL 70-110 H Performe d by certified GLUBED) desizing machine operator at [facility] CBC W/AUTO [id number] 12:21:00 Test Item Value Reference Range Interpretation [...] REQUIRED (test code NO = MDIFF) RBC [id number] 12:21:00 Test Item Value Reference Range Interpretation Comments POLYCHROMASIA (test code = POLC) 2+ HYPOCHROMIA (test code = HYPO) 1+ ANISOCYTOSIS (test code = ANISO) 2+ MACROCYTOSIS (test code = MACR) 2+ CBC W/AUTO [id number] 08:06:00 Test Item Value Reference Range Interpretation [...] REQUIRED (test code NO = MDIFF) RBC [id number] 08:06:00 Test Item Value Reference Range Interpretation Comments ANISOCYTOSIS (test code = ANISO) CBC W/AUTO [id number] 08:06:00 Test Item Value Reference Range Interpretation [...] REQUIRED (test code NO = MDIFF) RBC [id number] 08:06:00 Test Item Value Reference Range Interpretation Comments ANISOCYTOSIS (test code = ANISO) RENAL FUNCTION [id number] 07:58:00 Test Item Value Reference Range Interpretation [...] code 2.8 MG/DL 2.5-4.9 N = PHOS) [id number] 06:50:00 Test Item Value Reference Range Interpretation Comments GLUBED (test code = 127 MG/DL 70-110 H Performe d by certified GLUBED) desizing machine operator at [facility] [id number] 23:55:00 Test Item Value Reference Range Interpretation Comments GLUBED (test code = 150 MG/DL 70-110 H Performe d by certified GLUBED) desizing machine operator at [facility] [id number] 17:35:00 Test Item Value Reference Range Interpretation Comments GLUBED (test code = 136 MG/DL 70-110 H Performe d by certified GLUBED) desizing machine operator at [facility] [id number] 12:47:00 Test Item Value Reference Range Interpretation Comments GLUBED (test code = 149 MG/DL 70-110 H Performe d by certified GLUBED) desizing machine operator at [facility] CBC W/AUTO [id number] 08:25:00 Test Item Value Reference Range Interpretation [...] (test code NO = MDIFF) BASIC METABOLIC [id number] 08:14:00 Test Item Value Reference Range Interpretation [...] code = 10.3 mg/dL 8.0-10.5 N CA) [id number] 08:14:00 Test Item Value Reference Range Interpretation Comments MAGNESIUM (test code = MAG) 1.86 mg/dL 1.80-2.40 N CBC W/AUTO [id number] 08:13:00 Test Item Value Reference Range Interpretation [...] MANUAL DIFF REQUIRED (test code = MDIFF) [id number] 06:03:00 Test Item Value Reference Range Interpretation Comments GLUBED (test code = 132 MG/DL 70-110 H Performe d by certified GLUBED) desizing machine operator at [facility] [id number] 00:39:00 Test Item Value Reference Range Interpretation Comments GLUBED (test code = 140 MG/DL 70-110 H Performe d by certified GLUBED) desizing machine operator at [facility] [id number] 17:48:00 Test Item Value Reference Range Interpretation Comments GLUBED (test code = 135 MG/DL 70-110 H Performe d by certified GLUBED) desizing machine operator at [facility] [id number] 14:13:00 Test Item Value Reference Range Interpretation Comments GLUBED (test code = 171 MG/DL 70-110 H Performe d by certified GLUBED) desizing machine operator at [facility] BASIC METABOLIC [id number] 08:17:00 Test Item Value Reference Range Interpretation [...] code = 10.6 mg/dL 8.0-10.5 H CA) [id number] 08:17:00 Test Item Value Reference Range Interpretation Comments MAGNESIUM (test code = MAG) 2.12 mg/dL 1.80-2.40 N CBC W/AUTO [id number] 07:02:00 Test Item Value Reference Range Interpretation [...] (test code NO = MDIFF) CBC W/AUTO [id number] 06:57:00 Test Item Value Reference Range Interpretation [...] MANUAL DIFF REQUIRED (test code = MDIFF) [id number] 06:36:00 Test Item Value Reference Range Interpretation Comments GLUBED (test code = 122 MG/DL 70-110 H Performe d by certified GLUBED) desizing machine operator at [facility] [id number] 00:19:00 Test Item Value Reference Range Interpretation Comments GLUBED (test code = 117 MG/DL 70-110 H Performe d by certified GLUBED) desizing machine operator at [facility] HGB [id number] 19:12:00 Test Item Value Reference Range Interpretation Comments HEMOGLOBIN (test code = HGB) 9.3 g/dL 12.5-16.9 L HEMATOCRIT (test code = HCT) 30.7 % 37.5-50.7 L [id number] 17:24:00 Test Item Value Reference Range Interpretation Comments GLUBED (test code = 157 MG/DL 70-110 H Performe d by certified GLUBED) desizing machine operator at [facility] [id number] 17:24:00 Test Item Value Reference Range Interpretation Comments GLUBED (test code = 194 MG/DL 70-110 H Performe d by certified GLUBED) desizing machine operator at [facility] [id number] 12:24:00 Test Item Value Reference Range Interpretation Comments GLUBED (test code = 160 MG/DL 70-110 H Performe d by certified GLUBED) desizing machine operator at [facility] CBC W/MANUAL [id number] 11:46:00 Test Item Value Reference Range Interpretation [...] THOUSAND ADEQUATE code = PLTEST) CBC W/MANUAL [id number] 10:07:00 Test Item Value Reference Range Interpretation [...] THOUSAND ADEQUATE code = PLTEST) BASIC METABOLIC [id number] 08:22:00 Test Item Value Reference Range Interpretation [...] code = 9.9 mg/dL 8.0-10.5 N CA) [id number] 08:22:00 Test Item Value Reference Range Interpretation Comments MAGNESIUM (test code = MAG) 1.93 mg/dL 1.80-2.40 N CBC W/MANUAL [id number] 07:54:00 Test Item Value Reference Range Interpretation [...] code = THOUSAND ADEQUATE PLTEST) CBC W/MANUAL [id number] 07:25:00 Test Item Value Reference Range Interpretation [...] ESTIMATE (test code = THOUSAND ADEQUATE PLTEST) [id number] 05:56:00 Test Item Value Reference Range Interpretation Comments GLUBED (test code = 114 MG/DL 70-110 H Performe d by certified GLUBED) desizing machine operator at [facility] [id number] 23:57:00 Test Item Value Reference Range Interpretation Comments GLUBED (test code = 59 MG/DL 70-110 L Performe d by certified GLUBED) desizing machine operator at [facility] HGB [id number] 23:28:00 Test Item Value Reference Range Interpretation Comments HEMOGLOBIN (test code = HGB) 8.6 g/dL 12.5-16.9 L HEMATOCRIT (test code = HCT) 31.2 % 37.5-50.7 L [id number] 18:35:00 Test Item Value Reference Range Interpretation Comments GLUBED (test code = 136 MG/DL 70-110 H Performe d by certified GLUBED) desizing machine operator at [facility] [id number] 12:35:00 Test Item Value Reference Range Interpretation Comments GLUBED (test code = 166 MG/DL 70-110 H Performe d by certified GLUBED) desizing machine operator at [facility] [id number] 09:12:00 Test Item Value Reference Range Interpretation Comments GLUBED (test code = 143 MG/DL 70-110 H Performe d by certified GLUBED) desizing machine operator at [facility] [id number] 05:39:00 Test Item Value Reference Range Interpretation Comments GLUBED (test code = 122 MG/DL 70-110 H Performe d by certified GLUBED) desizing machine operator at [facility] BASIC METABOLIC [id number] 05:00:00 Test Item Value Reference Range Interpretation [...] code = 9.6 mg/dL 8.0-10.5 N CA) [id number] 05:00:00 Test Item Value Reference Range Interpretation Comments MAGNESIUM (test code = MAG) 1.72 mg/dL 1.80-2.40 L CBC W/AUTO [id number] 04:32:00 Test Item Value Reference Range Interpretation [...] DIFF REQUIRED (test code NO = MDIFF) [id number] 17:46:00 Test Item Value Reference Range Interpretation Comments GLUBED (test code = 162 MG/DL 70-110 H Performe d by certified GLUBED) desizing machine operator at [facility] CBC W/AUTO [id number] 08:22:00 Test Item Value Reference Range Interpretation [...] (test code NO = MDIFF) BASIC METABOLIC [id number] 07:49:00 Test Item Value Reference Range Interpretation [...] code = 10.0 mg/dL 8.0-10.5 N CA) [id number] 07:49:00 Test Item Value Reference Range Interpretation Comments MAGNESIUM (test code = MAG) 1.85 mg/dL 1.80-2.40 N [id number] 06:47:00 Test Item Value Reference Range Interpretation Comments GLUBED (test code = 115 MG/DL 70-110 H Performe d by certified GLUBED) desizing machine operator at [facility] [id number] 01:45:00 Test Item Value Reference Range Interpretation Comments GLUBED (test code = 166 MG/DL 70-110 H Performe d by certified GLUBED) desizing machine operator at [facility] [id number] 16:38:00 Test Item Value Reference Range Interpretation Comments GLUBED (test code = 140 MG/DL 70-110 H Performe d by certified GLUBED) desizing machine operator at [facility] HGB [id number] 12:39:00 Test Item Value Reference Range Interpretation Comments HEMOGLOBIN (test code = HGB) 7.5 g/dL 12.5-16.9 L HEMATOCRIT (test code = HCT) 24.9 % 37.5-50.7 L [id number] 11:37:00 Test Item Value Reference Range Interpretation Comments GLUBED (test code = 229 MG/DL 70-110 H Performe d by certified GLUBED) desizing machine operator at [facility] [id number] 07:27:00 Test Item Value Reference Range Interpretation Comments GLUBED (test code = 131 MG/DL 70-110 H Performe d by certified GLUBED) desizing machine operator at [facility] BASIC METABOLIC [id number] 04:57:00 Test Item Value Reference Range Interpretation [...] 9.6 mg/dL 8.0-10.5 N CA) CBC W/AUTO [id number] 04:36:00 Test Item Value Reference Range Interpretation [...] DIFF REQUIRED (test code NO = MDIFF) [id number] 23:51:00 Test Item Value Reference Range Interpretation Comments GLUBED (test code = 135 MG/DL 70-110 H Performe d by certified GLUBED) desizing machine operator at [facility] [id number] 20:01:00 Test Item Value Reference Range Interpretation Comments GLUBED (test code = 123 MG/DL 70-110 H Performe d by certified GLUBED) desizing machine operator at [facility] [id number] 17:46:00 Test Item Value Reference Range Interpretation Comments GLUBED (test code = 168 MG/DL 70-110 H Performe d by certified GLUBED) desizing machine operator at [facility] [id number] 12:47:00 Test Item Value Reference Range Interpretation Comments GLUBED (test code = 146 MG/DL 70-110 H Performe d by certified GLUBED) desizing machine operator at [facility] COMPREHENSIVE METABOLIC [id number] 05:40:00 Test Item Value Reference Range Interpretation [...] 20-125 N TOTAL (test code = ALKP) [id number] 05:40:00 Test Item Value Reference Range Interpretation Comments PHOSPHOROUS (test code = PHOS) 4.9 MG/DL 2.5-4.9 N B-TYPE NATRIURETIC [id number] 05:39:00 Test Item Value Reference Range Interpretation Comments B-TYPE NATRIURETIC PEPTIDE (test 1151.0 PG/ML 0-100 H code = BNP) CBC W/AUTO [id number] 05:30:00 Test Item Value Reference Range Interpretation [...] (test code NO = MDIFF) CBC W/AUTO [id number] 05:28:00 Test Item Value Reference Range Interpretation [...] MANUAL DIFF REQUIRED (test code = MDIFF) [id number] 21:17:00 Test Item Value Reference Range Interpretation Comments GLUBED (test code = 149 MG/DL 70-110 H Performe d by certified GLUBED) desizing machine operator at [facility] [id number] 15:37:00 Test Item Value Reference Range Interpretation Comments GLUBED (test code = 151 MG/DL 70-110 H Performe d by certified GLUBED) desizing machine operator at [facility] [id number] 15:36:00 Test Item Value Reference Range Interpretation Comments GLUBED (test code = 156 MG/DL 70-110 H Performe d by certified GLUBED) desizing machine operator at [facility] [id number] 14:00:00 Test Item Value Reference Range Interpretation Comments ACT-ISTAT (test code 290 SEC 74-137 H Perform ed by certified = ACTI) desizing machine operator at [facility] [id number] 14:00:00 Test Item Value Reference Range Interpretation Comments ACT-ISTAT (test code 219 SEC 74-137 H Perform ed by certified = ACTI) desizing machine operator at [facility] [id number] 13:22:00 Test Item Value Reference Range Interpretation Comments SODIUM (test code = NA/ABG) MEQ/L 134-147 [id number] 13:22:00 Test Item Value Reference Range Interpretation Comments POTASSIUM (test code = K/ABG) MEQ/L 3.4-5.0 CREATININE [id number] 13:22:00 Test Item Value Reference Range Interpretation Comments CREATININE ABG (test code = CREAABG) mg/dL 0.8-1.3 [id number] 13:22:00 Test Item Value Reference Range Interpretation Comments HEMOGLOBIN (test code = HGB/ABG) G/DL 12.5-16.9 [id number] 13:22:00 Test Item Value Reference Range Interpretation Comments HEMATOCRIT (test code = HCT/ABG) % 37.5-50.7 POC IONIZED [id number] 13:22:00 Test Item Value Reference Range Interpretation Comments POC IONIZED CALCIUM (test code = MMOL/L 1.12-1.32 POCCA) POC LACTIC [id number] 13:22:00 Test Item Value Reference Range Interpretation Comments POC LACTIC ACID (test code = POCLAC) mmol/l 0.9-1.7 POC [id number] 13:22:00 Test Item Value Reference Range Interpretation Comments POC GLUCOSE (test code = POCGLU) MG/DL 70-110 POC VENOUS BLOOD [id number] 13:22:00 Test Item Value Reference Range Interpretation Comments POC VENOUS BLOOD GAS PH (test 7.356 7.33-7.45 N code = POCPHV) POC VENOUS BLOOD GAS PCO2 (test 50.9 mmHg 43-47 H code = TTXHRA3T) POC VENOUS BLOOD GAS PO2 (test 35.4 mmHG 10-50 N code = UVTBC5T) POC TCO2 VENOUS (test code = 30.1 RSXMCO0O) POC HCO3 VENOUS (test code = 28.5 MMOL/L 22-27 H [id number]) POC BASE EXCESS VENOUS (test code 2.6 MMOL/L -4.0-4.0 N = POCBEV) POC O2 SATURATION VENOUS (test 64.3 % 60-80 N code = LSAE7CF) [id number] 13:22:00 Test Item Value Reference Range Interpretation Comments CHLORIDE (test code = CL/VBG) MEQ/L [id number] 13:22:00 Test Item Value Reference Range Interpretation Comments SODIUM (test code = NA/ABG) 139 MEQ/L 134-147 N [id number] 13:22:00 Test Item Value Reference Range Interpretation Comments POTASSIUM (test code = K/ABG) MEQ/L 3.4-5.0 CREATININE [id number] 13:22:00 Test Item Value Reference Range Interpretation Comments CREATININE ABG (test code = CREAABG) mg/dL 0.8-1.3 [id number] 13:22:00 Test Item Value Reference Range Interpretation Comments HEMOGLOBIN (test code = HGB/ABG) G/DL 12.5-16.9 [id number] 13:22:00 Test Item Value Reference Range Interpretation Comments HEMATOCRIT (test code = HCT/ABG) % 37.5-50.7 POC IONIZED [id number] 13:22:00 Test Item Value Reference Range Interpretation Comments POC IONIZED CALCIUM (test code = MMOL/L 1.12-1.32 POCCA) POC LACTIC [id number] 13:22:00 Test Item Value Reference Range Interpretation Comments POC LACTIC ACID (test code = POCLAC) mmol/l 0.9-1.7 POC [id number] 13:22:00 Test Item Value Reference Range Interpretation Comments POC GLUCOSE (test code = POCGLU) MG/DL 70-110 POC VENOUS BLOOD [id number] 13:22:00 Test Item Value Reference Range Interpretation Comments POC VENOUS BLOOD GAS PH (test 7.356 7.33-7.45 N code = POCPHV) POC VENOUS BLOOD GAS PCO2 (test 50.9 mmHg 43-47 H code = SPTZYG9F) POC VENOUS BLOOD GAS PO2 (test 35.4 mmHG 10-50 N code = HUPUZ1A) POC TCO2 VENOUS (test code = 30.1 ITEYII0A) POC HCO3 VENOUS (test code = 28.5 MMOL/L 22-27 H REWHYX6C) POC BASE EXCESS VENOUS (test code 2.6 MMOL/L -4.0-4.0 N = POCBEV) POC O2 SATURATION VENOUS (test 64.3 % 60-80 N code = CWCS5IV) [id number] 13:22:00 Test Item Value Reference Range Interpretation Comments CHLORIDE (test code = CL/VBG) MEQ/L [id number] 13:22:00 Test Item Value Reference Range Interpretation Comments SODIUM (test code = NA/ABG) 139 MEQ/L 134-147 N [id number] 13:22:00 Test Item Value Reference Range Interpretation Comments POTASSIUM (test code = K/ABG) 3.8 MEQ/L 3.4-5.0 N CREATININE [id number] 13:22:00 Test Item Value Reference Range Interpretation Comments CREATININE ABG (test code = CREAABG) mg/dL 0.8-1.3 [id number] 13:22:00 Test Item Value Reference Range Interpretation Comments HEMOGLOBIN (test code = HGB/ABG) G/DL 12.5-16.9 [id number] 13:22:00 Test Item Value Reference Range Interpretation Comments HEMATOCRIT (test code = HCT/ABG) % 37.5-50.7 POC IONIZED [id number] 13:22:00 Test Item Value Reference Range Interpretation Comments POC IONIZED CALCIUM (test code = MMOL/L 1.12-1.32 POCCA) POC LACTIC [id number] 13:22:00 Test Item Value Reference Range Interpretation Comments POC LACTIC ACID (test code = POCLAC) mmol/l 0.9-1.7 POC [id number] 13:22:00 Test Item Value Reference Range Interpretation Comments POC GLUCOSE (test code = POCGLU) MG/DL 70-110 POC VENOUS BLOOD [id number] 13:22:00 Test Item Value Reference Range Interpretation Comments POC VENOUS BLOOD GAS PH (test 7.356 7.33-7.45 N code = POCPHV) POC VENOUS BLOOD GAS PCO2 (test 50.9 mmHg 43-47 H code = CUMTRE6F) POC VENOUS BLOOD GAS PO2 (test 35.4 mmHG 10-50 N code = MHDKV4H) POC TCO2 VENOUS (test code = 30.1 LRBERT3V) POC HCO3 VENOUS (test code = 28.5 MMOL/L 22-27 H LELDHL9X) POC BASE EXCESS VENOUS (test code 2.6 MMOL/L -4.0-4.0 N = POCBEV) POC O2 SATURATION VENOUS (test 64.3 % 60-80 N code = ZHXD5UN) [id number] 13:22:00 Test Item Value Reference Range Interpretation Comments CHLORIDE (test code = CL/VBG) MEQ/L [id number] 13:22:00 Test Item Value Reference Range Interpretation Comments SODIUM (test code = NA/ABG) 139 MEQ/L 134-147 N [id number] 13:22:00 Test Item Value Reference Range Interpretation Comments POTASSIUM (test code = K/ABG) 3.8 MEQ/L 3.4-5.0 N CREATININE [id number] 13:22:00 Test Item Value Reference Range Interpretation Comments CREATININE ABG (test code = CREAABG) mg/dL 0.8-1.3 [id number] 13:22:00 Test Item Value Reference Range Interpretation Comments HEMOGLOBIN (test code = HGB/ABG) G/DL 12.5-16.9 [id number] 13:22:00 Test Item Value Reference Range Interpretation Comments HEMATOCRIT (test code = HCT/ABG) % 37.5-50.7 POC IONIZED [id number] 13:22:00 Test Item Value Reference Range Interpretation Comments POC IONIZED CALCIUM (test code = 1.29 MMOL/L 1.12-1.32 N POCCA) POC LACTIC [id number] 13:22:00 Test Item Value Reference Range Interpretation Comments POC LACTIC ACID (test code = POCLAC) mmol/l 0.9-1.7 POC [id number] 13:22:00 Test Item Value Reference Range Interpretation Comments POC GLUCOSE (test code = POCGLU) MG/DL 70-110 POC VENOUS BLOOD [id number] 13:22:00 Test Item Value Reference Range Interpretation Comments POC VENOUS BLOOD GAS PH (test 7.356 7.33-7.45 N code = POCPHV) POC VENOUS BLOOD GAS PCO2 (test 50.9 mmHg 43-47 H code = VPOECJ4C) POC VENOUS BLOOD GAS PO2 (test 35.4 mmHG 10-50 N code = HDESD8N) POC TCO2 VENOUS (test code = 30.1 XHJVRT4J) POC HCO3 VENOUS (test code = 28.5 MMOL/L 22-27 H DIIUBJ7M) POC BASE EXCESS VENOUS (test code 2.6 MMOL/L -4.0-4.0 N = POCBEV) POC O2 SATURATION VENOUS (test 64.3 % 60-80 N code = CVCW3FD) [id number] 13:22:00 Test Item Value Reference Range Interpretation Comments CHLORIDE (test code = CL/VBG) MEQ/L [id number] 13:22:00 Test Item Value Reference Range Interpretation Comments SODIUM (test code = NA/ABG) 139 MEQ/L 134-147 N [id number] 13:22:00 Test Item Value Reference Range Interpretation Comments POTASSIUM (test code = K/ABG) 3.8 MEQ/L 3.4-5.0 N CREATININE [id number] 13:22:00 Test Item Value Reference Range Interpretation Comments CREATININE ABG (test code = CREAABG) mg/dL 0.8-1.3 [id number] 13:22:00 Test Item Value Reference Range Interpretation Comments HEMOGLOBIN (test code = HGB/ABG) G/DL 12.5-16.9 [id number] 13:22:00 Test Item Value Reference Range Interpretation Comments HEMATOCRIT (test code = HCT/ABG) % 37.5-50.7 POC IONIZED [id number] 13:22:00 Test Item Value Reference Range Interpretation Comments POC IONIZED CALCIUM (test code = 1.29 MMOL/L 1.12-1.32 N POCCA) POC LACTIC [id number] 13:22:00 Test Item Value Reference Range Interpretation Comments POC LACTIC ACID (test code = POCLAC) mmol/l 0.9-1.7 POC [id number] 13:22:00 Test Item Value Reference Range Interpretation Comments POC GLUCOSE (test code = POCGLU) 128 MG/DL 70-110 H POC VENOUS BLOOD [id number] 13:22:00 Test Item Value Reference Range Interpretation Comments POC VENOUS BLOOD GAS PH (test 7.356 7.33-7.45 N code = POCPHV) POC VENOUS BLOOD GAS PCO2 (test 50.9 mmHg 43-47 H code = PTHGWP5L) POC VENOUS BLOOD GAS PO2 (test 35.4 mmHG 10-50 N code = EVMHN4G) POC TCO2 VENOUS (test code = 30.1 VEHZUT2E) POC HCO3 VENOUS (test code = 28.5 MMOL/L 22-27 H PWXBZJ9G) POC BASE EXCESS VENOUS (test code 2.6 MMOL/L -4.0-4.0 N = POCBEV) POC O2 SATURATION VENOUS (test 64.3 % 60-80 N code = FOQL1TN) [id number] 13:22:00 Test Item Value Reference Range Interpretation Comments CHLORIDE (test code = CL/VBG) MEQ/L [id number] 13:22:00 Test Item Value Reference Range Interpretation Comments SODIUM (test code = NA/ABG) 139 MEQ/L 134-147 N [id number] 13:22:00 Test Item Value Reference Range Interpretation Comments POTASSIUM (test code = K/ABG) 3.8 MEQ/L 3.4-5.0 N CREATININE [id number] 13:22:00 Test Item Value Reference Range Interpretation Comments CREATININE ABG (test code = CREAABG) mg/dL 0.8-1.3 [id number] 13:22:00 Test Item Value Reference Range Interpretation Comments HEMOGLOBIN (test code = HGB/ABG) G/DL 12.5-16.9 [id number] 13:22:00 Test Item Value Reference Range Interpretation Comments HEMATOCRIT (test code = HCT/ABG) % 37.5-50.7 POC IONIZED [id number] 13:22:00 Test Item Value Reference Range Interpretation Comments POC IONIZED CALCIUM (test code = 1.29 MMOL/L 1.12-1.32 N POCCA) POC LACTIC [id number] 13:22:00 Test Item Value Reference Range Interpretation Comments POC LACTIC ACID (test code = 0.4 mmol/l 0.9-1.7 L POCLAC) POC [id number] 13:22:00 Test Item Value Reference Range Interpretation Comments POC GLUCOSE (test code = POCGLU) 128 MG/DL 70-110 H POC VENOUS BLOOD [id number] 13:22:00 Test Item Value Reference Range Interpretation Comments POC VENOUS BLOOD GAS PH (test 7.356 7.33-7.45 N code = POCPHV) POC VENOUS BLOOD GAS PCO2 (test 50.9 mmHg 43-47 H code = ESCPTZ9U) POC VENOUS BLOOD GAS PO2 (test 35.4 mmHG 10-50 N code = QSOPB8F) POC TCO2 VENOUS (test code = 30.1 WTXNKE8J) POC HCO3 VENOUS (test code = 28.5 MMOL/L 22-27 H OXDUPC1R) POC BASE EXCESS VENOUS (test code 2.6 MMOL/L -4.0-4.0 N = POCBEV) POC O2 SATURATION VENOUS (test 64.3 % 60-80 N code = JOXQ0PR) [id number] 13:22:00 Test Item Value Reference Range Interpretation Comments CHLORIDE (test code = CL/VBG) MEQ/L [id number] 13:22:00 Test Item Value Reference Range Interpretation Comments SODIUM (test code = NA/ABG) 139 MEQ/L 134-147 N [id number] 13:22:00 Test Item Value Reference Range Interpretation Comments POTASSIUM (test code = K/ABG) 3.8 MEQ/L 3.4-5.0 N CREATININE [id number] 13:22:00 Test Item Value Reference Range Interpretation Comments CREATININE ABG (test code = CREAABG) mg/dL 0.8-1.3 [id number] 13:22:00 Test Item Value Reference Range Interpretation Comments HEMOGLOBIN (test code = HGB/ABG) G/DL 12.5-16.9 [id number] 13:22:00 Test Item Value Reference Range Interpretation Comments HEMATOCRIT (test code = HCT/ABG) 21 % 37.5-50.7 L POC IONIZED [id number] 13:22:00 Test Item Value Reference Range Interpretation Comments POC IONIZED CALCIUM (test code = 1.29 MMOL/L 1.12-1.32 N POCCA) POC LACTIC [id number] 13:22:00 Test Item Value Reference Range Interpretation Comments POC LACTIC ACID (test code = 0.4 mmol/l 0.9-1.7 L POCLAC) POC [id number] 13:22:00 Test Item Value Reference Range Interpretation Comments POC GLUCOSE (test code = POCGLU) 128 MG/DL 70-110 H POC VENOUS BLOOD [id number] 13:22:00 Test Item Value Reference Range Interpretation Comments POC VENOUS BLOOD GAS PH (test 7.356 7.33-7.45 N code = POCPHV) POC VENOUS BLOOD GAS PCO2 (test 50.9 mmHg 43-47 H code = WNPYSF2V) POC VENOUS BLOOD GAS PO2 (test 35.4 mmHG 10-50 N code = ZBYMO2L) POC TCO2 VENOUS (test code = 30.1 TWAXHY3R) POC HCO3 VENOUS (test code = 28.5 MMOL/L 22-27 H ZMPCLT4Q) POC BASE EXCESS VENOUS (test code 2.6 MMOL/L -4.0-4.0 N = POCBEV) POC O2 SATURATION VENOUS (test 64.3 % 60-80 N code = QYIC7OO) [id number] 13:22:00 Test Item Value Reference Range Interpretation Comments CHLORIDE (test code = CL/VBG) MEQ/L [id number] 13:22:00 Test Item Value Reference Range Interpretation Comments SODIUM (test code = NA/ABG) 139 MEQ/L 134-147 N [id number] 13:22:00 Test Item Value Reference Range Interpretation Comments POTASSIUM (test code = K/ABG) 3.8 MEQ/L 3.4-5.0 N CREATININE [id number] 13:22:00 Test Item Value Reference Range Interpretation Comments CREATININE ABG (test code = CREAABG) mg/dL 0.8-1.3 [id number] 13:22:00 Test Item Value Reference Range Interpretation Comments HEMOGLOBIN (test code = HGB/ABG) 7.2 G/DL 12.5-16.9 L [id number] 13:22:00 Test Item Value Reference Range Interpretation Comments HEMATOCRIT (test code = HCT/ABG) 21 % 37.5-50.7 L POC IONIZED [id number] 13:22:00 Test Item Value Reference Range Interpretation Comments POC IONIZED CALCIUM (test code = 1.29 MMOL/L 1.12-1.32 N POCCA) POC LACTIC [id number] 13:22:00 Test Item Value Reference Range Interpretation Comments POC LACTIC ACID (test code = 0.4 mmol/l 0.9-1.7 L POCLAC) POC [id number] 13:22:00 Test Item Value Reference Range Interpretation Comments POC GLUCOSE (test code = POCGLU) 128 MG/DL 70-110 H POC VENOUS BLOOD [id number] 13:22:00 Test Item Value Reference Range Interpretation Comments POC VENOUS BLOOD GAS PH (test 7.356 7.33-7.45 N code = POCPHV) POC VENOUS BLOOD GAS PCO2 (test 50.9 mmHg 43-47 H code = PHPRJG1N) POC VENOUS BLOOD GAS PO2 (test 35.4 mmHG 10-50 N code = LQAWS4H) POC TCO2 VENOUS (test code = 30.1 MOPPOQ6X) POC HCO3 VENOUS (test code = 28.5 MMOL/L 22-27 H LSDFSV6Q) POC BASE EXCESS VENOUS (test code 2.6 MMOL/L -4.0-4.0 N = POCBEV) POC O2 SATURATION VENOUS (test 64.3 % 60-80 N code = TMZL6ZD) [id number] 13:22:00 Test Item Value Reference Range Interpretation Comments CHLORIDE (test code = CL/VBG) MEQ/L [id number] 13:22:00 Test Item Value Reference Range Interpretation Comments SODIUM (test code = NA/ABG) 139 MEQ/L 134-147 N [id number] 13:22:00 Test Item Value Reference Range Interpretation Comments POTASSIUM (test code = K/ABG) 3.8 MEQ/L 3.4-5.0 N CREATININE [id number] 13:22:00 Test Item Value Reference Range Interpretation Comments CREATININE ABG (test code = CREAABG) mg/dL 0.8-1.3 [id number] 13:22:00 Test Item Value Reference Range Interpretation Comments HEMOGLOBIN (test code = HGB/ABG) 7.2 G/DL 12.5-16.9 L [id number] 13:22:00 Test Item Value Reference Range Interpretation Comments HEMATOCRIT (test code = HCT/ABG) 21 % 37.5-50.7 L POC IONIZED [id number] 13:22:00 Test Item Value Reference Range Interpretation Comments POC IONIZED CALCIUM (test code = 1.29 MMOL/L 1.12-1.32 N POCCA) POC LACTIC [id number] 13:22:00 Test Item Value Reference Range Interpretation Comments POC LACTIC ACID (test code = 0.4 mmol/l 0.9-1.7 L POCLAC) POC [id number] 13:22:00 Test Item Value Reference Range Interpretation Comments POC GLUCOSE (test code = POCGLU) 128 MG/DL 70-110 H POC VENOUS BLOOD [id number] 13:22:00 Test Item Value Reference Range Interpretation Comments POC VENOUS BLOOD GAS PH (test 7.356 7.33-7.45 N code = POCPHV) POC VENOUS BLOOD GAS PCO2 (test 50.9 mmHg 43-47 H code = BISILO5N) POC VENOUS BLOOD GAS PO2 (test 35.4 mmHG 10-50 N code = SQBKK6T) POC TCO2 VENOUS (test code = 30.1 QULCNW7X) POC HCO3 VENOUS (test code = 28.5 MMOL/L 22-27 H ICOTIM1K) POC BASE EXCESS VENOUS (test code 2.6 MMOL/L -4.0-4.0 N = POCBEV) POC O2 SATURATION VENOUS (test 64.3 % 60-80 N code = HUOK2VB) [id number] 13:22:00 Test Item Value Reference Range Interpretation Comments CHLORIDE (test code = CL/VBG) 104 MEQ/L [id number] 13:22:00 Test Item Value Reference Range Interpretation Comments SODIUM (test code = NA/ABG) 139 MEQ/L 134-147 N [id number] 13:22:00 Test Item Value Reference Range Interpretation Comments POTASSIUM (test code = K/ABG) 3.8 MEQ/L 3.4-5.0 N CREATININE [id number] 13:22:00 Test Item Value Reference Range Interpretation Comments CREATININE ABG (test code = 5.3 mg/dL 0.8-1.3 H CREAABG) [id number] 13:22:00 Test Item Value Reference Range Interpretation Comments HEMOGLOBIN (test code = HGB/ABG) 7.2 G/DL 12.5-16.9 L [id number] 13:22:00 Test Item Value Reference Range Interpretation Comments HEMATOCRIT (test code = HCT/ABG) 21 % 37.5-50.7 L POC IONIZED [id number] 13:22:00 Test Item Value Reference Range Interpretation Comments POC IONIZED CALCIUM (test code = 1.29 MMOL/L 1.12-1.32 N POCCA) POC LACTIC [id number] 13:22:00 Test Item Value Reference Range Interpretation Comments POC LACTIC ACID (test code = 0.4 mmol/l 0.9-1.7 L POCLAC) POC [id number] 13:22:00 Test Item Value Reference Range Interpretation Comments POC GLUCOSE (test code = POCGLU) 128 MG/DL 70-110 H POC VENOUS BLOOD [id number] 13:22:00 Test Item Value Reference Range Interpretation Comments POC VENOUS BLOOD GAS PH (test 7.356 7.33-7.45 N code = POCPHV) POC VENOUS BLOOD GAS PCO2 (test 50.9 mmHg 43-47 H code = WMKKWT4K) POC VENOUS BLOOD GAS PO2 (test 35.4 mmHG 10-50 N code = WJXDW8V) POC TCO2 VENOUS (test code = 30.1 ETTNAA5P) POC HCO3 VENOUS (test code = 28.5 MMOL/L 22-27 H TIPHKZ0A) POC BASE EXCESS VENOUS (test code 2.6 MMOL/L -4.0-4.0 N = POCBEV) POC O2 SATURATION VENOUS (test 64.3 % 60-80 N code = BKJS7MD) [id number] 13:22:00 Test Item Value Reference Range Interpretation Comments CHLORIDE (test code = CL/VBG) 104 MEQ/L POC ARTERIAL BLOOD [id number] 12:48:00 Test Item Value Reference Range Interpretation Comments POC ARTERIAL BLOOD GAS PH (test 7.406 7.35-7.45 N code = POCPHA) POC ARTERIAL BLOOD GAS PCO2 (test 43.4 mmHg 35.0-45 N code = YDHUQC4Z) POC TCO2 ARTERIAL (test code = 28.6 POCTCO2) POC ARTERIAL BLOOD GAS PO2 (test 115.1 mmHg 80-100.0 H code = YMZFA6I) POC HCO3 ARTERIAL (test code = 27.3 MMOL/L 22.0-26.0 H NPLXJG8E) POC BASE EXCESS (test code = 2.3 MMOL/L -4.0-4.0 N POCBEA) POC O2 SATURATION (test code = 98.5 % 90-100 N POCO2S) [id number] 12:48:00 Test Item Value Reference Range Interpretation Comments SODIUM (test code = NA/ABG) MEQ/L 134-147 [id number] 12:48:00 Test Item Value Reference Range Interpretation Comments POTASSIUM (test code = K/ABG) MEQ/L 3.4-5.0 [id number] 12:48:00 Test Item Value Reference Range Interpretation Comments CHLORIDE (test code = CL/ABG) MEQ/L 100-108 CREATININE [id number] 12:48:00 Test Item Value Reference Range Interpretation Comments CREATININE ABG (test code = CREAABG) mg/dL 0.8-1.3 [id number] 12:48:00 Test Item Value Reference Range Interpretation Comments HEMOGLOBIN (test code = HGB/ABG) G/DL 12.5-16.9 [id number] 12:48:00 Test Item Value Reference Range Interpretation Comments HEMATOCRIT (test code = HCT/ABG) % 37.5-50.7 POC IONIZED [id number] 12:48:00 Test Item Value Reference Range Interpretation Comments POC IONIZED CALCIUM (test code = MMOL/L 1.12-1.32 POCCA) POC LACTIC [id number] 12:48:00 Test Item Value Reference Range Interpretation Comments POC LACTIC ACID (test code = POCLAC) mmol/l 0.9-1.7 POC [id number] 12:48:00 Test Item Value Reference Range Interpretation Comments POC GLUCOSE (test code = POCGLU) MG/DL 70-110 POC ARTERIAL BLOOD [id number] 12:48:00 Test Item Value Reference Range Interpretation Comments POC ARTERIAL BLOOD GAS PH (test 7.406 7.35-7.45 N code = POCPHA) POC ARTERIAL BLOOD GAS PCO2 (test 43.4 mmHg 35.0-45 N code = CIVYMQ3Q) POC TCO2 ARTERIAL (test code = 28.6 POCTCO2) POC ARTERIAL BLOOD GAS PO2 (test 115.1 mmHg 80-100.0 H code = WHROA9M) POC HCO3 ARTERIAL (test code = 27.3 MMOL/L 22.0-26.0 H FBLQWZ9T) POC BASE EXCESS (test code = 2.3 MMOL/L -4.0-4.0 N POCBEA) POC O2 SATURATION (test code = 98.5 % 90-100 N POCO2S) [id number] 12:48:00 Test Item Value Reference Range Interpretation Comments SODIUM (test code = NA/ABG) 138 MEQ/L 134-147 N [id number] 12:48:00 Test Item Value Reference Range Interpretation Comments POTASSIUM (test code = K/ABG) MEQ/L 3.4-5.0 [id number] 12:48:00 Test Item Value Reference Range Interpretation Comments CHLORIDE (test code = CL/ABG) MEQ/L 100-108 CREATININE [id number] 12:48:00 Test Item Value Reference Range Interpretation Comments CREATININE ABG (test code = CREAABG) mg/dL 0.8-1.3 [id number] 12:48:00 Test Item Value Reference Range Interpretation Comments HEMOGLOBIN (test code = HGB/ABG) G/DL 12.5-16.9 [id number] 12:48:00 Test Item Value Reference Range Interpretation Comments HEMATOCRIT (test code = HCT/ABG) % 37.5-50.7 POC IONIZED [id number] 12:48:00 Test Item Value Reference Range Interpretation Comments POC IONIZED CALCIUM (test code = MMOL/L 1.12-1.32 POCCA) POC LACTIC [id number] 12:48:00 Test Item Value Reference Range Interpretation Comments POC LACTIC ACID (test code = POCLAC) mmol/l 0.9-1.7 POC [id number] 12:48:00 Test Item Value Reference Range Interpretation Comments POC GLUCOSE (test code = POCGLU) MG/DL 70-110 POC ARTERIAL BLOOD [id number] 12:48:00 Test Item Value Reference Range Interpretation Comments POC ARTERIAL BLOOD GAS PH (test 7.406 7.35-7.45 N code = POCPHA) POC ARTERIAL BLOOD GAS PCO2 (test 43.4 mmHg 35.0-45 N code = SYNEWF5Y) POC TCO2 ARTERIAL (test code = 28.6 POCTCO2) POC ARTERIAL BLOOD GAS PO2 (test 115.1 mmHg 80-100.0 H code = AEWQM1S) POC HCO3 ARTERIAL (test code = 27.3 MMOL/L 22.0-26.0 H HNGNPQ6U) POC BASE EXCESS (test code = 2.3 MMOL/L -4.0-4.0 N POCBEA) POC O2 SATURATION (test code = 98.5 % 90-100 N POCO2S) [id number] 12:48:00 Test Item Value Reference Range Interpretation Comments SODIUM (test code = NA/ABG) 138 MEQ/L 134-147 N [id number] 12:48:00 Test Item Value Reference Range Interpretation Comments POTASSIUM (test code = K/ABG) 4.0 MEQ/L 3.4-5.0 N [id number] 12:48:00 Test Item Value Reference Range Interpretation Comments CHLORIDE (test code = CL/ABG) MEQ/L 100-108 CREATININE [id number] 12:48:00 Test Item Value Reference Range Interpretation Comments CREATININE ABG (test code = CREAABG) mg/dL 0.8-1.3 [id number] 12:48:00 Test Item Value Reference Range Interpretation Comments HEMOGLOBIN (test code = HGB/ABG) G/DL 12.5-16.9 [id number] 12:48:00 Test Item Value Reference Range Interpretation Comments HEMATOCRIT (test code = HCT/ABG) % 37.5-50.7 POC IONIZED [id number] 12:48:00 Test Item Value Reference Range Interpretation Comments POC IONIZED CALCIUM (test code = MMOL/L 1.12-1.32 POCCA) POC LACTIC [id number] 12:48:00 Test Item Value Reference Range Interpretation Comments POC LACTIC ACID (test code = POCLAC) mmol/l 0.9-1.7 POC [id number] 12:48:00 Test Item Value Reference Range Interpretation Comments POC GLUCOSE (test code = POCGLU) MG/DL 70-110 POC ARTERIAL BLOOD [id number] 12:48:00 Test Item Value Reference Range Interpretation Comments POC ARTERIAL BLOOD GAS PH (test 7.406 7.35-7.45 N code = POCPHA) POC ARTERIAL BLOOD GAS PCO2 (test 43.4 mmHg 35.0-45 N code = YECCJV8U) POC TCO2 ARTERIAL (test code = 28.6 POCTCO2) POC ARTERIAL BLOOD GAS PO2 (test 115.1 mmHg 80-100.0 H code = CGGTQ8S) POC HCO3 ARTERIAL (test code = 27.3 MMOL/L 22.0-26.0 H KNZXHH0I) POC BASE EXCESS (test code = 2.3 MMOL/L -4.0-4.0 N POCBEA) POC O2 SATURATION (test code = 98.5 % 90-100 N POCO2S) [id number] 12:48:00 Test Item Value Reference Range Interpretation Comments SODIUM (test code = NA/ABG) 138 MEQ/L 134-147 N [id number] 12:48:00 Test Item Value Reference Range Interpretation Comments POTASSIUM (test code = K/ABG) 4.0 MEQ/L 3.4-5.0 N [id number] 12:48:00 Test Item Value Reference Range Interpretation Comments CHLORIDE (test code = CL/ABG) MEQ/L 100-108 CREATININE [id number] 12:48:00 Test Item Value Reference Range Interpretation Comments CREATININE ABG (test code = CREAABG) mg/dL 0.8-1.3 [id number] 12:48:00 Test Item Value Reference Range Interpretation Comments HEMOGLOBIN (test code = HGB/ABG) G/DL 12.5-16.9 [id number] 12:48:00 Test Item Value Reference Range Interpretation Comments HEMATOCRIT (test code = HCT/ABG) % 37.5-50.7 POC IONIZED [id number] 12:48:00 Test Item Value Reference Range Interpretation Comments POC IONIZED CALCIUM (test code = 1.30 MMOL/L 1.12-1.32 N POCCA) POC LACTIC [id number] 12:48:00 Test Item Value Reference Range Interpretation Comments POC LACTIC ACID (test code = POCLAC) mmol/l 0.9-1.7 POC [id number] 12:48:00 Test Item Value Reference Range Interpretation Comments POC GLUCOSE (test code = POCGLU) MG/DL 70-110 POC ARTERIAL BLOOD [id number] 12:48:00 Test Item Value Reference Range Interpretation Comments POC ARTERIAL BLOOD GAS PH (test 7.406 7.35-7.45 N code = POCPHA) POC ARTERIAL BLOOD GAS PCO2 (test 43.4 mmHg 35.0-45 N code = FBGFRI9U) POC TCO2 ARTERIAL (test code = 28.6 POCTCO2) POC ARTERIAL BLOOD GAS PO2 (test 115.1 mmHg 80-100.0 H code = VZKHP9Q) POC HCO3 ARTERIAL (test code = 27.3 MMOL/L 22.0-26.0 H FTUVQL0Z) POC BASE EXCESS (test code = 2.3 MMOL/L -4.0-4.0 N POCBEA) POC O2 SATURATION (test code = 98.5 % 90-100 N POCO2S) [id number] 12:48:00 Test Item Value Reference Range Interpretation Comments SODIUM (test code = NA/ABG) 138 MEQ/L 134-147 N [id number] 12:48:00 Test Item Value Reference Range Interpretation Comments POTASSIUM (test code = K/ABG) 4.0 MEQ/L 3.4-5.0 N [id number] 12:48:00 Test Item Value Reference Range Interpretation Comments CHLORIDE (test code = CL/ABG) MEQ/L 100-108 CREATININE [id number] 12:48:00 Test Item Value Reference Range Interpretation Comments CREATININE ABG (test code = CREAABG) mg/dL 0.8-1.3 [id number] 12:48:00 Test Item Value Reference Range Interpretation Comments HEMOGLOBIN (test code = HGB/ABG) G/DL 12.5-16.9 [id number] 12:48:00 Test Item Value Reference Range Interpretation Comments HEMATOCRIT (test code = HCT/ABG) % 37.5-50.7 POC IONIZED [id number] 12:48:00 Test Item Value Reference Range Interpretation Comments POC IONIZED CALCIUM (test code = 1.30 MMOL/L 1.12-1.32 N POCCA) POC LACTIC [id number] 12:48:00 Test Item Value Reference Range Interpretation Comments POC LACTIC ACID (test code = POCLAC) mmol/l 0.9-1.7 POC [id number] 12:48:00 Test Item Value Reference Range Interpretation Comments POC GLUCOSE (test code = POCGLU) 131 MG/DL 70-110 H POC ARTERIAL BLOOD [id number] 12:48:00 Test Item Value Reference Range Interpretation Comments POC ARTERIAL BLOOD GAS PH (test 7.406 7.35-7.45 N code = POCPHA) POC ARTERIAL BLOOD GAS PCO2 (test 43.4 mmHg 35.0-45 N code = POCOHL5A) POC TCO2 ARTERIAL (test code = 28.6 POCTCO2) POC ARTERIAL BLOOD GAS PO2 (test 115.1 mmHg 80-100.0 H code = DFSWT7K) POC HCO3 ARTERIAL (test code = 27.3 MMOL/L 22.0-26.0 H ZZSCMR8C) POC BASE EXCESS (test code = 2.3 MMOL/L -4.0-4.0 N POCBEA) POC O2 SATURATION (test code = 98.5 % 90-100 N POCO2S) [id number] 12:48:00 Test Item Value Reference Range Interpretation Comments SODIUM (test code = NA/ABG) 138 MEQ/L 134-147 N [id number] 12:48:00 Test Item Value Reference Range Interpretation Comments POTASSIUM (test code = K/ABG) 4.0 MEQ/L 3.4-5.0 N [id number] 12:48:00 Test Item Value Reference Range Interpretation Comments CHLORIDE (test code = CL/ABG) MEQ/L 100-108 CREATININE [id number] 12:48:00 Test Item Value Reference Range Interpretation Comments CREATININE ABG (test code = CREAABG) mg/dL 0.8-1.3 [id number] 12:48:00 Test Item Value Reference Range Interpretation Comments HEMOGLOBIN (test code = HGB/ABG) G/DL 12.5-16.9 [id number] 12:48:00 Test Item Value Reference Range Interpretation Comments HEMATOCRIT (test code = HCT/ABG) % 37.5-50.7 POC IONIZED [id number] 12:48:00 Test Item Value Reference Range Interpretation Comments POC IONIZED CALCIUM (test code = 1.30 MMOL/L 1.12-1.32 N POCCA) POC LACTIC [id number] 12:48:00 Test Item Value Reference Range Interpretation Comments POC LACTIC ACID (test code = 0.6 mmol/l 0.9-1.7 L POCLAC) POC [id number] 12:48:00 Test Item Value Reference Range Interpretation Comments POC GLUCOSE (test code = POCGLU) 131 MG/DL 70-110 H POC ARTERIAL BLOOD [id number] 12:48:00 Test Item Value Reference Range Interpretation Comments POC ARTERIAL BLOOD GAS PH (test 7.406 7.35-7.45 N code = POCPHA) POC ARTERIAL BLOOD GAS PCO2 (test 43.4 mmHg 35.0-45 N code = SBQTBJ7F) POC TCO2 ARTERIAL (test code = 28.6 POCTCO2) POC ARTERIAL BLOOD GAS PO2 (test 115.1 mmHg 80-100.0 H code = KRRUZ1I) POC HCO3 ARTERIAL (test code = 27.3 MMOL/L 22.0-26.0 H IGECDW4O) POC BASE EXCESS (test code = 2.3 MMOL/L -4.0-4.0 N POCBEA) POC O2 SATURATION (test code = 98.5 % 90-100 N POCO2S) [id number] 12:48:00 Test Item Value Reference Range Interpretation Comments SODIUM (test code = NA/ABG) 138 MEQ/L 134-147 N [id number] 12:48:00 Test Item Value Reference Range Interpretation Comments POTASSIUM (test code = K/ABG) 4.0 MEQ/L 3.4-5.0 N [id number] 12:48:00 Test Item Value Reference Range Interpretation Comments CHLORIDE (test code = CL/ABG) MEQ/L 100-108 CREATININE [id number] 12:48:00 Test Item Value Reference Range Interpretation Comments CREATININE ABG (test code = CREAABG) mg/dL 0.8-1.3 [id number] 12:48:00 Test Item Value Reference Range Interpretation Comments HEMOGLOBIN (test code = HGB/ABG) G/DL 12.5-16.9 [id number] 12:48:00 Test Item Value Reference Range Interpretation Comments HEMATOCRIT (test code = HCT/ABG) 23 % 37.5-50.7 L POC IONIZED [id number] 12:48:00 Test Item Value Reference Range Interpretation Comments POC IONIZED CALCIUM (test code = 1.30 MMOL/L 1.12-1.32 N POCCA) POC LACTIC [id number] 12:48:00 Test Item Value Reference Range Interpretation Comments POC LACTIC ACID (test code = 0.6 mmol/l 0.9-1.7 L POCLAC) POC [id number] 12:48:00 Test Item Value Reference Range Interpretation Comments POC GLUCOSE (test code = POCGLU) 131 MG/DL 70-110 H POC ARTERIAL BLOOD [id number] 12:48:00 Test Item Value Reference Range Interpretation Comments POC ARTERIAL BLOOD GAS PH (test 7.406 7.35-7.45 N code = POCPHA) POC ARTERIAL BLOOD GAS PCO2 (test 43.4 mmHg 35.0-45 N code = [id number]) POC TCO2 ARTERIAL (test code = 28.6 POCTCO2) POC ARTERIAL BLOOD GAS PO2 (test 115.1 mmHg 80-100.0 H code = UYHQV3K) POC HCO3 ARTERIAL (test code = 27.3 MMOL/L 22.0-26.0 H [id number]) POC BASE EXCESS (test code = 2.3 MMOL/L -4.0-4.0 N POCBEA) POC O2 SATURATION (test code = 98.5 % 90-100 N POCO2S) [id number] 12:48:00 Test Item Value Reference Range Interpretation Comments SODIUM (test code = NA/ABG) 138 MEQ/L 134-147 N [id number] 12:48:00 Test Item Value Reference Range Interpretation Comments POTASSIUM (test code = K/ABG) 4.0 MEQ/L 3.4-5.0 N [id number] 12:48:00 Test Item Value Reference Range Interpretation Comments CHLORIDE (test code = CL/ABG) MEQ/L 100-108 CREATININE [id number] 12:48:00 Test Item Value Reference Range Interpretation Comments CREATININE ABG (test code = CREAABG) mg/dL 0.8-1.3 [id number] 12:48:00 Test Item Value Reference Range Interpretation Comments HEMOGLOBIN (test code = HGB/ABG) 7.7 G/DL 12.5-16.9 L [id number] 12:48:00 Test Item Value Reference Range Interpretation Comments HEMATOCRIT (test code = HCT/ABG) 23 % 37.5-50.7 L POC IONIZED [id number] 12:48:00 Test Item Value Reference Range Interpretation Comments POC IONIZED CALCIUM (test code = 1.30 MMOL/L 1.12-1.32 N POCCA) POC LACTIC [id number] 12:48:00 Test Item Value Reference Range Interpretation Comments POC LACTIC ACID (test code = 0.6 mmol/l 0.9-1.7 L POCLAC) POC [id number] 12:48:00 Test Item Value Reference Range Interpretation Comments POC GLUCOSE (test code = POCGLU) 131 MG/DL 70-110 H POC ARTERIAL BLOOD [id number] 12:48:00 Test Item Value Reference Range Interpretation Comments POC ARTERIAL BLOOD GAS PH (test 7.406 7.35-7.45 N code = POCPHA) POC ARTERIAL BLOOD GAS PCO2 (test 43.4 mmHg 35.0-45 N code = [id number]) POC TCO2 ARTERIAL (test code = 28.6 POCTCO2) POC ARTERIAL BLOOD GAS PO2 (test 115.1 mmHg 80-100.0 H code = [id number]) POC HCO3 ARTERIAL (test code = 27.3 MMOL/L 22.0-26.0 H [id number]) POC BASE EXCESS (test code = 2.3 MMOL/L -4.0-4.0 N POCBEA) POC O2 SATURATION (test code = 98.5 % 90-100 N POCO2S) [id number] 12:48:00 Test Item Value Reference Range Interpretation Comments SODIUM (test code = NA/ABG) 138 MEQ/L 134-147 N [id number] 12:48:00 Test Item Value Reference Range Interpretation Comments POTASSIUM (test code = K/ABG) 4.0 MEQ/L 3.4-5.0 N [id number] 12:48:00 Test Item Value Reference Range Interpretation Comments CHLORIDE (test code = CL/ABG) 104 MEQ/L 100-108 N CREATININE [id number] 12:48:00 Test Item Value Reference Range Interpretation Comments CREATININE ABG (test code = CREAABG) mg/dL 0.8-1.3 [id number] 12:48:00 Test Item Value Reference Range Interpretation Comments HEMOGLOBIN (test code = HGB/ABG) 7.7 G/DL 12.5-16.9 L [id number] 12:48:00 Test Item Value Reference Range Interpretation Comments HEMATOCRIT (test code = HCT/ABG) 23 % 37.5-50.7 L POC IONIZED [id number] 12:48:00 Test Item Value Reference Range Interpretation Comments POC IONIZED CALCIUM (test code = 1.30 MMOL/L 1.12-1.32 N POCCA) POC LACTIC [id number] 12:48:00 Test Item Value Reference Range Interpretation Comments POC LACTIC ACID (test code = 0.6 mmol/l 0.9-1.7 L POCLAC) POC [id number] 12:48:00 Test Item Value Reference Range Interpretation Comments POC GLUCOSE (test code = POCGLU) 131 MG/DL 70-110 H POC ARTERIAL BLOOD [id number] 12:48:00 Test Item Value Reference Range Interpretation Comments POC ARTERIAL BLOOD GAS PH (test 7.406 7.35-7.45 N code = POCPHA) POC ARTERIAL BLOOD GAS PCO2 (test 43.4 mmHg 35.0-45 N code = PXRVRJ7C) POC TCO2 ARTERIAL (test code = 28.6 POCTCO2) POC ARTERIAL BLOOD GAS PO2 (test 115.1 mmHg 80-100.0 H code = LPXIB7H) POC HCO3 ARTERIAL (test code = 27.3 MMOL/L 22.0-26.0 H AXCJSX5E) POC BASE EXCESS (test code = 2.3 MMOL/L -4.0-4.0 N POCBEA) POC O2 SATURATION (test code = 98.5 % 90-100 N POCO2S) [id number] 12:48:00 Test Item Value Reference Range Interpretation Comments SODIUM (test code = NA/ABG) 138 MEQ/L 134-147 N [id number] 12:48:00 Test Item Value Reference Range Interpretation Comments POTASSIUM (test code = K/ABG) 4.0 MEQ/L 3.4-5.0 N [id number] 12:48:00 Test Item Value Reference Range Interpretation Comments CHLORIDE (test code = CL/ABG) 104 MEQ/L 100-108 N CREATININE [id number] 12:48:00 Test Item Value Reference Range Interpretation Comments CREATININE ABG (test code = 5.9 mg/dL 0.8-1.3 H CREAABG) [id number] 12:48:00 Test Item Value Reference Range Interpretation Comments HEMOGLOBIN (test code = HGB/ABG) 7.7 G/DL 12.5-16.9 L [id number] 12:48:00 Test Item Value Reference Range Interpretation Comments HEMATOCRIT (test code = HCT/ABG) 23 % 37.5-50.7 L POC IONIZED [id number] 12:48:00 Test Item Value Reference Range Interpretation Comments POC IONIZED CALCIUM (test code = 1.30 MMOL/L 1.12-1.32 N POCCA) POC LACTIC [id number] 12:48:00 Test Item Value Reference Range Interpretation Comments POC LACTIC ACID (test code = 0.6 mmol/l 0.9-1.7 L POCLAC) POC [id number] 12:48:00 Test Item Value Reference Range Interpretation Comments POC GLUCOSE (test code = POCGLU) 131 MG/DL 70-110 H PROTHROMBIN [id number] 05:58:00 Test Item Value Reference Range Interpretation [...] o prevent recurre nt infarct). BASIC METABOLIC [id number] 05:57:00 Test Item Value Reference Range Interpretation [...] be done morning of Heart CathCBC W/AUTO [id number] 05:43:00 Test Item Value Reference Range Interpretation [...] be done morning of Heart CathCBC W/AUTO [id number] 05:42:00 Test Item Value Reference Range Interpretation [...] COMMENTS: To be done morning of Heart [id number] 05:25:00 Test Item Value Reference Range Interpretation Comments GLUBED (test code = 126 MG/DL 70-110 H Performe d by certified GLUBED) desizing machine operator at [facility] [id number] 00:40:00 Test Item Value Reference Range Interpretation Comments GLUBED (test code = 146 MG/DL 70-110 H Performe d by certified GLUBED) desizing machine operator at [facility] BASIC METABOLIC [id number] 06:53:00 Test Item Value Reference Range Interpretation [...] be done morning of Heart CathCBC W/AUTO [id number] 06:48:00 Test Item Value Reference Range Interpretation [...] be done morning of Heart CathCBC W/AUTO [id number] 06:45:00 Test Item Value Reference Range Interpretation [...] COMMENTS: To be done morning of Heart [id number] 04:57:00 Test Item Value Reference Range Interpretation Comments GLUBED (test code = 122 MG/DL 70-110 H Performe d by certified GLUBED) desizing machine operator at [facility] [id number] 23:53:00 Test Item Value Reference Range Interpretation Comments GLUBED (test code = 131 MG/DL 70-110 H Performe d by certified GLUBED) desizing machine operator at [facility] [id number] 18:29:00 Test Item Value Reference Range Interpretation Comments GLUBED (test code = 130 MG/DL 70-110 H Performe d by certified GLUBED) desizing machine operator at [facility] COVID 19 Asymptomatic IH [id number] 16:00:00 Test Item Value Reference Range Interpretation Comments COVID 19 Asymptomatic Negative Negative A nega tive result is IH AG (test code = presumpti ve and should COVNONPUIAG) be confirmedwit h an FDA authorized mole cular assay, if neces anuj forpatient charbel gemtristin.A positive result does not rule out co-inf [...] y tests. COMMENTS: If not done this [id number] 12:07:00 Test Item Value Reference Range Interpretation Comments GLUBED (test code = 220 MG/DL 70-110 H Performe d by certified GLUBED) desizing machine operator at [facility] [id number] 05:28:00 Test Item Value Reference Range Interpretation Comments GLUBED (test code = 142 MG/DL 70-110 H Performe d by certified GLUBED) desizing machine operator at [facility] [id number] 05:25:00 Test Item Value Reference Range Interpretation Comments GLUBED (test code = 133 MG/DL 70-110 H Performe d by certified GLUBED) desizing machine operator at [facility] [id number] 03:42:00 Test Item Value Reference Range Interpretation Comments POTASSIUM (test code = K) 4.1 mEq/L 3.4-5.0 N HGB [id number] 03:38:00 Test Item Value Reference Range Interpretation Comments HEMOGLOBIN (test code = HGB) 8.6 g/dL 12.5-16.9 L HEMATOCRIT (test code = HCT) 28.5 % 37.5-50.7 L [id number] 20:37:00 Test Item Value Reference Range Interpretation Comments GLUBED (test code = 120 MG/DL 70-110 H Performe d by certified GLUBED) desizing machine operator at [facility] HGB [id number] 11:12:00 Test Item Value Reference Range Interpretation Comments HEMOGLOBIN (test code = HGB) 8.7 g/dL 12.5-16.9 L HEMATOCRIT (test code = HCT) 27.6 % 37.5-50.7 L [id number] 11:09:00 Test Item Value Reference Range Interpretation Comments POTASSIUM (test code = K) 3.9 mEq/L 3.4-5.0 N [id number] 06:06:00 Test Item Value Reference Range Interpretation Comments GLUBED (test code = 109 MG/DL 70-110 N Performe d by certified GLUBED) desizing machine operator at [facility] [id number] 00:45:00 Test Item Value Reference Range Interpretation Comments GLUBED (test code = 155 MG/DL 70-110 H Performe d by certified GLUBED) desizing machine operator at [facility] - [place] ANGIO [id number] 18:28:00 [facility] 1935 Sex: M Name: RADHA BLANCO [facility] : 1935 Age/S: 84 / M [address] [place] [address] Unit #: [id number] Loc: [place] [address] Phys: Madiha Manjarrez [facility] Acct: [id number] Dis Date: Status: ADM IN PHONE #: [phone] Exam Date: 05/18/2020 163 FAX #: [phone] Reason: PRE TAVR EXAMS: CPT CODE: [id number] CT ANGIO CHEST 22662 CHEST, ABDOMEN AND PELVIS CT ANGIOGRAM WITH [...] 1 Signed Report (CONTINUED) Name: RADHA BLANCO [facility] :1935 Age/S: 84 / M [address] [place] [address] Blvd Unit #: [id number] Loc: [place] [address] Phys: Madiha Manjarrez MEDICARE COORDINATOR Acct: [id number] Dis Date: Status: ADM IN PHONE #: [phone] Exam Date: 05/18/2020 1631 FAX #: [phone] Reason: PRE TAVR EXAMS: CPT CODE: [id number] CT ANGIO CHEST 47143 <Continued> inferior lingula. Calcified granuloma right lower [...] of the left abdomen are beyond the ifvoy-fp-dpjw. No focal liver lesion. Fatty involutional change [...] 2 Signed Report (CONTINUED) Name: RADHA BLANCO [facility] : 1935 Age/S:84 / M [address] [place], [place] [address] Unit #: [id number] Loc: [place] [address] Phys: Madiha Manjarrez MEDICARE COORDINATOR Acct: [id number] Dis Date: Status: ADM IN PHONE #: [phone] Exam Date: 05/18/2020 1631 FAX #: [phone] Reason: PRE TAVR EXAMS: CPT CODE: [id number] CT ANGIO CHEST 69326 <Continued> cyst. No further imaging is required. 8. 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 Discitis osteomyelitis in the differential to be correlated with clinical and laboratory findings with further imaging as warranted. SL: [id number] at 1828 Reported and signed by: Jaleel Pierce M.D. CC: Madiha Manjarrez; Navjot Cruz MD; Aris Ash MD Technologist:RT Blaine(R) CTDI: DLP: Trnscb Date/Time: 05/18/2020 (1827) NakulKWL Orig Print D/T: S: 05/18/2020 (1830) PAGE 3 Signed Report- CTA HEART W CN ART/[id number] 18:28:00 [facility] 1935 Sex: M Name: RADHA BLANCO [facility] : 1935 Age/S: 84 / M [address] [place], [place] [address] Unit #: [id number] Loc: [place] [address] Phys: Madiha Manjarrez Acct: [id number] Dis Date: Status: ADM IN PHONE #: [phone] Exam Date: 05/18/2020 1631 FAX #: [phone] Reason: brittani for Exam: PRE TAVR EXAMS: CPT CODE: [id number] CTA HEART W CN ART/GRAFTS 82345 CHEST, ABDOMEN AND PELVIS CT ANGIOGRAM WITH [...] 1 Signed Report (CONTINUED) Name: RADHA BLANCO [facility] :1935 Age/S: 84 / M [address] [place], [place] [address] Unit #: [id number] Loc: [place] [address] Phys: Madiha Manjarrez Acct: [id number] Dis Date: Status: ADM IN PHONE #: [phone] Exam Date: 05/18/2020 1631 FAX #: [phone] Reason: brittani for Exam: PRE TAVR EXAMS: CPT CODE: [id number] CTA HEART W CN ART/GRAFTS 72479 <Continued> inferior lingula. Calcified granuloma right lower [...] of the left abdomen are beyond the wnigh-qi-eynu. No focal liver lesion. Fatty involutional change [...] 2 Signed Report (CONTINUED) Name: RADHA BLANCO [facility] : 1935 Age/S:84 / M [address] [place], [place] [address] Unit #: [id number] Loc: [place] [address] Phys: Madiha Manjarrez Acct: [id number] Dis Date: Status: ADM IN PHONE #: [phone] Exam Date: 05/18/2020 1631 FAX #: [phone] Reason: brittani for Exam: PRE TAVR EXAMS: CPT CODE: [id number] CTA HEART W CN ART/GRAFTS 32087 <Continued> cyst. No further imaging is required. 8. 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 Discitis osteomyelitis in the differential to be correlated with clinical and laboratory findings with further imaging as warranted. SL: [id number] at 1828 Reported and signed by: Jaleel Pierce M.D. CC: Madiha Manjarrez; Navjot Cruz MD; Aris Ash MD Technologist:Cory Singh, RT(R) CTDI: DLP: Trnscb Date/Time: 05/18/2020 (1827) t.AARONR.KWL Orig Print D/T: S: 05/18/2020 (1830) PAGE 3 Signed Report- CTA ABD PEL W [id number] 18:28:00 [facility] 1935 Sex: M Name: RADHA BLANCO [facility] : 1935 Age/S: 84 / M [address] [place] [address] Unit #: [id number] Loc: [place] [address] Phys: Madiha Manjarrez MEDICARE COORDINATOR Acct: [id number] Dis Date: Status: ADM IN PHONE #: [phone] Exam Date: 05/18/2020 1631 FAX #: [phone] Reason: PRE TAVR EXAMS: CPT CODE: [id number] CTA ABD PEL W CONT 07788 CHEST, ABDOMEN AND PELVIS CT ANGIOGRAM WITH [...] 1 Signed Report (CONTINUED) Name: RADHA BLANCO [facility] :1935 Age/S: 84 / M [address] [place] [address] Blvd Unit #: [id number] Loc: [place] [address] Phys: Madiha Manjarrez [facility] Acct: [id number] Dis Date: Status: ADM IN PHONE #: [phone] Exam Date: 05/18/2020 1631 FAX #: [phone] Reason: PRE TAVR EXAMS: CPT CODE: [id number] CTA ABD PEL W CONT 07629 <Continued> inferior lingula. Calcified granuloma right lower [...] of the left abdomen are beyond the wxirg-tm-luvs. No focal liver lesion. Fatty involutional change [...] 2 Signed Report (CONTINUED) Name: RADHA BLANCO [facility] : 1935 Age/S:84 / M [address] [place] [address] Unit #: [id number] Loc: [place] [address] Phys: PengsavannahCarson pompalynne BOWDEN Acct: [id number] Dis Date: Status: ADM IN PHONE #: [phone] Exam Date: 05/18/2020 1631 FAX #: [phone] Reason: PRE TAVR EXAMS: CPT CODE: [id number] CTA ABD PEL W CONT 74441 <Continued> cyst. No further imaging is required. 8. 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 Discitis osteomyelitis in the differential to be correlated with clinical and laboratory findings with further imaging as warranted. SL: [id number] at 1828 Reported and signed by: Jaleel Pierce M.D. CC: Madiha Manjarrez; Navjot Cruz MD; Aris Ash MD Technologist:Cory Singh, RT(R) CTDI: DLP: Trnscb Date/Time: 05/18/2020 (1827) tTONIAKWL Orig Print D/T: S: 05/18/2020 (183) PAGE 3 Signed [id number] 18:10:00 Test Item Value Reference Range Interpretation Comments GLUBED (test code = 112 MG/DL 70-110 H Performe d by certified GLUBED) desizing machine operator at [facility] - DUP EXTRACRANIAL [id number] 16:59:00 [facility] 1935 Sex: M Name: RADHA BLANCO : 1935 Age[facility]S: 84 / M [address] [facility] [address] Unit #: [id number] Loc: [place] [address] Phys: Madiha Manjarrez Acct: [id number] Dis Date: Status: ADM IN PHONE #: [phone] Exam Date: 05/18/2020 1650 FAX #: [phone] Reason: PRE TAVR EXAMS: CPT CODE: [id number] DUP EXTRACRANIAL DEX 41646 STUDY: - DUP EXTRACRANIAL DEX 05/18/2020 1:30 PM Ordering Physician: Madiha Manjarrez Patient Name: RADHA BLANCO MR: [id number] : 1935; Age: 84 years y/o Male [...] 1 Signed Report (CONTINUED) Name: RADHA BLANCO : 1935 Age/S: 84 / M [address] [facility] [address] Unit #: [id number] Loc: [place] [address] Phys: LokiCarsonlynne BOWDEN Acct: [id number] Dis Date: Status: ADM IN PHONE #: [phone] Exam Date: 05/18/20201649 FAX #: [phone] Reason: PRE TAVR EXAMS: CPT CODE: [id number] DUP EXTRACRANIAL DEX 14853 <Continued> 2.6 x 2.7 x 2.9 cm. Dedicated thyroid ultrasound is recommended. Consensus panel Doppler US criteria for diagnosis of ICA stenosis: Stenosis (%) ICA PSV (cm/sec) ICA/CCA ratio ------ <50<125 <2.0 50-69 125-230 2.0-4.0 >70 but less than >230 >4.0near occlusion Near occlusion High, low, or Variable undetectable SL: [id number] at 1659 Reported and signed by: Donnell Naranjo D.O. CC: Madiha Manjarrez; Navojt Cruz MD; Aris Ash MD Technologist: Gretel Honeycutt RDMS(AB)(RCT) Trnscb Date/Time: 05/18/2020 (1658) NakulMP37 Orig Print D/T: S: 05/18/2020 (9497) Probe: PAGE 2 Signed [id number] 16:11:00 Test Item Value Reference Range Interpretation Comments GLUBED (test code = 151 MG/DL 70-110 H Performe d by certified GLUBED) desizing machine operator at [facility] LIPOPROTEIN [id number] 14:33:00 Test Item Value Reference Range Interpretation Comments LIPOPROTEIN LDL 74.8 mg/dL 0-100 N <100 OPT [id number] (test code = LDL) NEAR OPTIM AL/ABOVE MTDMQUY012-961 ZGMQFLFOPY519-0 89 HIGH>HW=432 VE RY HIGH*Guidelines provided by the National Cholesterol EducationProgra m Adult Treatment Panel III [id number] 14:07:00 Test Item Value Reference Range Interpretation [...] may fam y by method. RENAL FUNCTION [id number] 11:46:00 Test Item Value Reference Range Interpretation [...] MG/DL 2.5-4.9 N = PHOS) CBC W/AUTO [id number] 07:15:00 Test Item Value Reference Range Interpretation [...] DIFF REQUIRED (test code NO = MDIFF) [id number] 06:07:00 Test Item Value Reference Range Interpretation Comments GLUBED (test code = 126 MG/DL 70-110 H Performe d by certified GLUBED) desizing machine operator at [facility] [id number] 00:31:00 Test Item Value Reference Range Interpretation Comments GLUBED (test code = 116 MG/DL 70-110 H Performe d by certified GLUBED) desizing machine operator at [facility] [id number] 18:56:00 Test Item Value Reference Range Interpretation Comments GLUBED (test code = 142 MG/DL 70-110 H Performe d by certified GLUBED) desizing machine operator at [facility] [id number] 14:43:00 Test Item Value Reference Range Interpretation Comments GLUBED (test code = 155 MG/DL 70-110 H Performe d by certified GLUBED) desizing machine operator at [facility] [id number] 14:43:00 Test Item Value Reference Range Interpretation Comments GLUBED (test code = 153 MG/DL 70-110 H Performe d by certified GLUBED) desizing machine operator at [facility] [id number] 12:49:00 Test Item Value Reference Range Interpretation Comments GLUBED (test code = 147 MG/DL 70-110 H Performe d by certified GLUBED) desizing machine operator at [facility] [id number] 10:34:00 Test Item Value Reference Range Interpretation Comments GLUBED (test code = 127 MG/DL 70-110 H Performe d by certified GLUBED) desizing machine operator at [facility] [id number] 08:02:00 Test Item Value Reference Range Interpretation Comments GLUBED (test code = 118 MG/DL 70-110 H Performe d by certified GLUBED) desizing machine operator at [facility] CBC W/AUTO [id number] 07:37:00 Test Item Value Reference Range Interpretation [...] MDIFF) COMMENTS: PREOP PROTOCOL- XR CHEST 1 [id number] 07:09:00 [facility] 1935 Sex: M FAX: Navjot Byrd [phone] [place]: St: ADM FAX: Lisandra Tracy [phone] FAX: Aris Davis [phone] Name: JACKSONRADHA [facility] : 1935 Age/S: 84/M [address] [place] [address] Unit #: [id number] Loc: Kary[address] [place] [address] Phys: Lidya Tracy CRNA Acct: [id number] Dis Date: Status: ADM IN PHONE #: [phone] Exam Date: 05/16/2020829 FAX #: [phone] Reason: preop EXAMS: CPT CODE: [id number] XR CHEST 1 V 13062 Chest single view 05/16/2020 HISTORY: Preoperative exam [...] effusion. 2. Small left base atelectasis/infiltrate. SL: [id number] t 07 Reported and signed by: Brock Welsh M.D. CC: Navjot Cruz MD; Lidya Tracy CRNA; Aris Ash MD Technologist: RT Lukas(R) Trnscrd Date/Time/By: 05/17/2020 (708) : By: NakulBJM4 Orig Print D/T: S: 05/17/2020 (0713) PAGE 1 Signed [id number] 04:05:00 Test Item Value Reference Range Interpretation Comments GLUBED (test code = 132 MG/DL 70-110 H Performe d by certified GLUBED) desizing machine operator at [facility] BASIC METABOLIC [id number] 01:25:00 Test Item Value Reference Range Interpretation [...] = 9.0 mg/dL 8.0-10.5 N CA) HGB [id number] 01:10:00 Test Item Value Reference Range Interpretation Comments HEMOGLOBIN (test code = 6.4 g/dL 12.5-16.9 LL Crit ical result called HGB) to RENE Rose.LAB.JN1 at 04 0605/17/20Nurse r ead back resut and tech confirmed it's correct? YES HEMATOCRIT (test code = 19.5 % 37.5-50.7 L HCT) HGB [id number] 20:14:00 Test Item Value Reference Range Interpretation Comments HEMOGLOBIN (test code = 5.4 g/dL 12.5-16.9 LL Crit ical result called HGB) to SAMINA Rose.LAB.PTP at 05/16/20Nurse r ead back resut and tech confirmed it's correct? Y HEMATOCRIT (test code = 16.7 % 37.5-50.7 LL Crit ical result called HCT) to SAMINA Rose.LAB.PTP at 05/16/20Nurse r ead back result and tech confirmed it's correct? Y [id number] 13:32:00 Test Item Value Reference Range Interpretation Comments GLUBED (test code = 130 MG/DL 70-110 H Performe d by certified GLUBED) desizing machine operator at [facility] CBC W/AUTO [id number] 09:13:00 Test Item Value Reference Range Interpretation Comments WHITE BLOOD CELL (test 9.3 x10 3/uL 4.5-11.0 N code = WBC) RED BLOOD CELL (test 1.67 x10 6/uL 4.00-5.60 L code = RBC) HEMOGLOBIN (test code 5.2 g/dL 12.5-16.9 LL Critic al result = HGB) called to TRIED CALLING 5HT MAN Y TIMES/NOANSWERb y G.LAB.DVW at 12 0705/16/20Nurse r ead back resut and tech confirmed it's correct? Y HEMATOCRIT (test code 16.2 % 37.5-50.7 LL Critic al result = HCT) called to TRIED CALLING 5HT MAN Y TIMES/NOANSWERb y G.LAB.DVW at 12 0805/16/20Nurse ronda ptarick back result and tech confirmed it's correct? [...] NO (test code = MDIFF) BASIC METABOLIC [id number] 07:35:00 Test Item Value Reference Range Interpretation [...] mg/dL 8.0-10.5 N CA) TOTAL IRON BINDING [id number] 07:35:00 Test Item Value Reference Range Interpretation Comments SERUM IRON (test code = IRON) 71 mcg/dL 35-150 N TOTAL IRON BINDING CAPACITY (test 168 mcg/dL 260-445 L code = TIBC) UIBC (test code = UIBC) 97 mcg/dL IRON SATURATION (test code = 42.3 % 14-34 H FESAT) [id number] 07:35:00 Test Item Value Reference Range Interpretation Comments FERRITIN (test code = KYLE) 456.4 ng/mL 23.9-336.2 H PROTHROMBIN [id number] 06:25:00 Test Item Value Reference Range Interpretation [...] o prevent recurre nt infarct). THROMBOPLASTIN TIME [id number] 06:25:00 Test Item Value Reference Range Interpretation Comments THROMBOPLASTIN TIME 31.0 Seconds 25.0-39.5 N Ther apeutic PARTIAL (test code = Range: 50.4 - 88.3 PTT) Seconds Effective 07/13/2018 PROTHROMBIN [id number] 06:23:00 Test Item Value Reference Range Interpretation [...] o prevent recurrent infar ct). THROMBOPLASTIN TIME [id number] 06:23:00 Test Item Value Reference Range Interpretation Comments THROMBOPLASTIN TIME PARTIAL (test Seconds 25.0-39.5 code = PTT) [id number] 02:15:00 Test Item Value Reference Range Interpretation Comments GLUBED (test code = 161 MG/DL 70-110 H Performe d by certified GLUBED) desizing machine operator at [facility] [id number] 21:57:00 Test Item Value Reference Range Interpretation Comments GLUBED (test code = 86 MG/DL 70-110 N Performe d by certified GLUBED) desizing machine operator at [facility] [id number] 17:59:00 Test Item Value Reference Range Interpretation Comments GLUBED (test code = 119 MG/DL 70-110 H Performe d by certified GLUBED) desizing machine operator at [facility] COVID 19 Asymptomatic IH [id number] 16:36:00 Test Item Value Reference Range Interpretation [...] y tests. COMMENTS: If not done this [id number] 11:45:00 Test Item Value Reference Range Interpretation Comments GLUBED (test code = 126 MG/DL 70-110 H Performe d by certified GLUBED) desizing machine operator at [facility] CBC W/AUTO [id number] 07:38:00 Test Item Value Reference Range Interpretation [...] NO (test code = MDIFF) BASIC METABOLIC [id number] 07:13:00 Test Item Value Reference Range Interpretation [...] code = 10.2 mg/dL 8.0-10.5 N CA) [id number] 00:14:00 Test Item Value Reference Range Interpretation Comments GLUBED (test code = 165 MG/DL 70-110 H Performe d by certified GLUBED) desizing machine operator at [facility] [id number] 20:05:00 Test Item Value Reference Range Interpretation Comments GLUBED (test code = 151 MG/DL 70-110 H Performe d by certified GLUBED) desizing machine operator at [facility] [id number] 13:13:00 Test Item Value Reference Range Interpretation Comments GLUBED (test code = 125 MG/DL 70-110 H Performe d by certified GLUBED) desizing machine operator at [facility] [id number] 06:11:00 Test Item Value Reference Range Interpretation Comments GLUBED (test code = 142 MG/DL 70-110 H Performe d by certified GLUBED) desizing machine operator at [facility] [id number] 00:33:00 Test Item Value Reference Range Interpretation Comments GLUBED (test code = 157 MG/DL 70-110 H Performe d by certified GLUBED) desizing machine operator at [facility] [id number] 18:54:00 Test Item Value Reference Range Interpretation Comments GLUBED (test code = 174 MG/DL 70-110 H Performe d by certified GLUBED) desizing machine operator at [facility] [id number] 14:56:00 Test Item Value Reference Range Interpretation Comments GLUBED (test code = 140 MG/DL 70-110 H Performe d by certified GLUBED) desizing machine operator at [facility] [id number] 10:09:00 Test Item Value Reference Range Interpretation Comments GLUBED (test code = 126 MG/DL 70-110 H Performe d by certified GLUBED) desizing machine operator at [facility] BASIC METABOLIC [id number] 08:57:00 Test Item Value Reference Range Interpretation [...] 10.0 mg/dL 8.0-10.5 N CA) CBC W/AUTO [id number] 07:37:00 Test Item Value Reference Range Interpretation [...] DIFF REQUIRED (test code NO = MDIFF) [id number] 05:54:00 Test Item Value Reference Range Interpretation Comments GLUBED (test code = 128 MG/DL 70-110 H Performe d by certified GLUBED) desizing machine operator at [facility] [id number] 00:44:00 Test Item Value Reference Range Interpretation Comments GLUBED (test code = 127 MG/DL 70-110 H Performe d by certified GLUBED) desizing machine operator at [facility] [id number] 19:50:00 Test Item Value Reference Range Interpretation Comments GLUBED (test code = 119 MG/DL 70-110 H Performe d by certified GLUBED) desizing machine operator at [facility] [id number] 12:20:00 Test Item Value Reference Range Interpretation Comments GLUBED (test code = 142 MG/DL 70-110 H Performe d by certified GLUBED) desizing machine operator at [facility] [id number] 05:37:00 Test Item Value Reference Range Interpretation Comments GLUBED (test code = 116 MG/DL 70-110 H Performe d by certified GLUBED) desizing machine operator at [facility] [id number] 01:24:00 Test Item Value Reference Range Interpretation Comments GLUBED (test code = 133 MG/DL 70-110 H Performe d by certified GLUBED) desizing machine operator at [facility] [id number] 18:08:00 Test Item Value Reference Range Interpretation Comments GLUBED (test code = 127 MG/DL 70-110 H Performe d by certified GLUBED) desizing machine operator at [facility] [id number] 15:12:00 Test Item Value Reference Range Interpretation Comments GLUBED (test code = 155 MG/DL 70-110 H Performe d by certified GLUBED) desizing machine operator at [facility] [id number] 13:25:00 Test Item Value Reference Range Interpretation Comments GLUBED (test code = 175 MG/DL 70-110 H Performe d by certified GLUBED) desizing machine operator at [facility] [id number] 12:55:00 Test Item Value Reference Range Interpretation Comments GLUBED (test code = 122 MG/DL 70-110 H Performe d by certified GLUBED) desizing machine operator at [facility] [id number] 08:17:00 Test Item Value Reference Range Interpretation Comments GLUBED (test code = 167 MG/DL 70-110 H Performe d by certified GLUBED) desizing machine operator at [facility] CBC W/AUTO [id number] 08:13:00 Test Item Value Reference Range Interpretation [...] (test code NO = MDIFF) BASIC METABOLIC [id number] 07:55:00 Test Item Value Reference Range Interpretation [...] code = 9.2 mg/dL 8.0-10.5 N CA) [id number] 06:03:00 Test Item Value Reference Range Interpretation Comments GLUBED (test code = 127 MG/DL 70-110 H Performe d by certified GLUBED) desizing machine operator at [facility] HGB [id number] 17:39:00 Test Item Value Reference Range Interpretation Comments HEMOGLOBIN (test code = HGB) 8.5 g/dL 12.5-16.9 L HEMATOCRIT (test code = HCT) 28.3 % 37.5-50.7 L [id number] 13:09:00 Test Item Value Reference Range Interpretation Comments GLUBED (test code = 140 MG/DL 70-110 H Performe d by certified GLUBED) desizing machine operator at [facility] SURGICAL PATH [id number] 08:30:00 Test Item Value Reference Range Interpretation Comments SURGICAL PATH SPECIMENS (test code = SURG) RUN DATE: 05/10/20 [facility] *LIVE* PAGE 1 RUN TIME: 0830 Specimen Inquiry RUN USER: INTERFACE JASMYN ENT: RADHA BLANCO LOC: KIRSTIE U #: [id number] AGE/SX: 84/M [place] [facility] [place] DR: Navjot Cruz : 37 BED: 1 DIS: STATUS: ADM IN TLOC: SPEC #: [id number] RECD: 05/07/20 STATUS: ANGEL REQ #: [id number] KISHA: 05/07/[address]: Navjot Cruz MD ENTERED: 05/09/20 SP TYPE: SURG SPEC OTHR DR: Self Referred Carlos Bai MD,Gordon Patel,Orlando Ash,Guanako Rebollar MD, MDORDERED: GROSS AND MICRO CODES: [id number] - STOMACH, NOS [id number] - SMALL INTESTINE COPIES TO: Self Referred Navjot Cruz MD [address] [address] Carlos Bai MD [address] [place] [address] Gordon Alejandro MD [address] [place], [place] [address] [address] Orlando Patel MD [address] [facility] [address] [place] [id number] Aris Ash MD [address] [facility] [address] [place] [address] Guanako Betancourt MD [address] [place] [id number] CONTINUED ON NEXT PAGE RUN DATE: 05/10/20 [facility] *LIVE* PAGE 2 RUN TIME: 0830 Specimen Inquiry RUN USER: INTERFACE SPEC #: [id number] PATIENT: RADHA BLANCO #[id number] (Continued) ------- PROCEDURES: GROSS AND MICRO (Incomplete) [...] CONTINUED ON NEXT PAGE RUN DATE: 05/10/20 [facility] *LIVE* PAGE 3 RUN TIME: 0830 Specimen Inquiry RUN USER: INTERFACE SPEC #: [id number] PATIENT: RADHA BLANCO #[id number] (Continued) ------- POST-OP DIAGNOSIS Duodenal bulb ulcer, severe duodenitis, gastritis PRE-OP DIAGNOSIS Anemia -- Signed SIGNATURE ON FILE Michael López MD 05/10/20 0830 END OF REPORT BASIC METABOLIC [id number] 07:39:00 Test Item Value Reference Range Interpretation [...] = 9.7 mg/dL 8.0-10.5 N CA) HGB [id number] 07:11:00 Test Item Value Reference Range Interpretation Comments HEMOGLOBIN (test code = HGB) 8.3 g/dL 12.5-16.9 L HEMATOCRIT (test code = HCT) 26.9 % 37.5-50.7 L [id number] 05:16:00 Test Item Value Reference Range Interpretation Comments GLUBED (test code = 117 MG/DL 70-110 H Performe d by certified GLUBED) desizing machine operator at [facility] [id number] 05:16:00 Test Item Value Reference Range Interpretation Comments GLUBED (test code = 112 MG/DL 70-110 H Performe d by certified GLUBED) desizing machine operator at [facility] HGB [id number] 18:25:00 Test Item Value Reference Range Interpretation Comments HEMOGLOBIN (test code = HGB) 8.2 g/dL 12.5-16.9 L HEMATOCRIT (test code = HCT) 26.6 % 37.5-50.7 L [id number] 13:25:00 Test Item Value Reference Range Interpretation Comments GLUBED (test code = 140 MG/DL 70-110 H Performe d by certified GLUBED) desizing machine operator at [facility] BASIC METABOLIC [id number] 11:12:00 Test Item Value Reference Range Interpretation [...] LDL 68.0 mg/dL 0-100 N <100 OPT [id number] (test code = LDL) NEAR OPTI MAL/ABOVE [id number] 89 HIGH>RA=812 VE RY HIGH*Guidelines provided by the National Choles terol Education[employer] m Adult Treatment Panel III CBC W/AUTO [id number] 11:00:00 Test Item Value Reference Range Interpretation [...] DIFF REQUIRED (test code NO = MDIFF) [id number] 05:38:00 Test Item Value Reference Range Interpretation Comments GLUBED (test code = 116 MG/DL 70-110 H Performe d by certified GLUBED) desizing machine operator at [facility] [id number] 00:32:00 Test Item Value Reference Range Interpretation Comments GLUBED (test code = 139 MG/DL 70-110 H Performe d by certified GLUBED) desizing machine operator at [facility] [id number] 17:07:00 Test Item Value Reference Range Interpretation Comments GLUBED (test code = 128 MG/DL 70-110 H Performe d by certified GLUBED) desizing machine operator at [facility] [id number] 16:31:00 Test Item Value Reference Range Interpretation Comments GLUBED (test code = 147 MG/DL 70-110 H Performe d by certified GLUBED) desizing machine operator at [facility] HGB [id number] 13:12:00 Test Item Value Reference Range Interpretation Comments HEMOGLOBIN (test code = HGB) 7.6 g/dL 12.5-16.9 L HEMATOCRIT (test code = HCT) 25.0 % 37.5-50.7 L HEPATITIS [id number] 06:11:00 Test Item Value Reference Range Interpretation Comments AB HEPATITIS B 20.6 mIU/mL See_Comment Status of SURFACE (test code Immunity = HBSAB) Anti-H Bs Level --- I ncon sistent with Immunity 0.0 - 9.9Consistent w ith Immunity >9.9Performed A t: HD [facility] [address] [place], [place] [id number] Flip Landry MD Ph:[phone] [Automated mess age] The system [email or web address] generated this result transmit elizabeth reference range : Immunity>9.9. T he reference range was not used to interpret this result as normal/abnormal . AG HEPATITIS B NON REACTIVE NonReactive SURFACE (test code INDEX = HBSAG) AB HEPATITIS B NON REACTIVE NON REACT. CORE IGM (test INDEX code = HBCMAB) COMMENTS: At start of hemodialysisACUTE HEPATITIS [id number] 06:11:00 Test Item Value Reference Range Interpretation Comments AB HEPATITIS A IGM (test NON REACTIVE INDEX NON REACT. code = HAVMAB) AB HEPATITIS C (test code NON REACTIVE INDEX NON REACT. = HCVAB) COMMENTS: At start of hemodialysisBASIC METABOLIC [id number] 05:25:00 Test Item Value Reference Range Interpretation [...] code = 9.4 mg/dL 8.0-10.5 N CA) [id number] 05:25:00 Test Item Value Reference Range Interpretation Comments PHOSPHOROUS (test code = PHOS) 3.9 MG/DL 2.5-4.9 N [id number] 05:25:00 Test Item Value Reference Range Interpretation Comments MAGNESIUM (test code = MAG) 1.59 mg/dL 1.80-2.40 L CALCIUM [id number] 05:25:00 Test Item Value Reference Range Interpretation Comments CALCIUM IONIZED (test code = JONA) 1.25 MMOL/L 1.12-1.32 N BASIC METABOLIC [id number] 05:10:00 Test Item Value Reference Range Interpretation [...] CALCIUM (test code = CA) mg/dL 8.0-10.5 [id number] 05:10:00 Test Item Value Reference Range Interpretation Comments PHOSPHOROUS (test code = PHOS) MG/DL 2.5-4.9 [id number] 05:10:00 Test Item Value Reference Range Interpretation Comments MAGNESIUM (test code = MAG) mg/dL 1.80-2.40 CALCIUM [id number] 05:10:00 Test Item Value Reference Range Interpretation Comments CALCIUM IONIZED (test code = JONA) 1.25 MMOL/L 1.12-1.32 N CBC W/AUTO [id number] 05:08:00 Test Item Value Reference Range Interpretation [...] DIFF REQUIRED (test code NO = MDIFF) [id number] 00:22:00 Test Item Value Reference Range Interpretation Comments GLUBED (test code = 82 MG/DL 70-110 N Performe d by certified GLUBED) desizing machine operator at [facility] HGB [id number] 20:32:00 Test Item Value Reference Range Interpretation Comments HEMOGLOBIN (test code = HGB) 7.3 g/dL 12.5-16.9 L HEMATOCRIT (test code = HCT) 23.1 % 37.5-50.7 L [id number] 16:55:00 Test Item Value Reference Range Interpretation Comments GLUBED (test code = 136 MG/DL 70-110 H Performe d by certified GLUBED) desizing machine operator at [facility] HGB [id number] 14:16:00 Test Item Value Reference Range Interpretation Comments HEMOGLOBIN (test code = HGB) 7.2 g/dL 12.5-16.9 L HEMATOCRIT (test code = HCT) 23.0 % 37.5-50.7 L [id number] 14:09:00 Test Item Value Reference Range Interpretation Comments GLUBED (test code = 151 MG/DL 70-110 H Performe d by certified GLUBED) desizing machine operator at [facility] - XR CHEST 1 [id number] 08:55:00 [facility] 1935 Sex: M FAX: Navjot Byrd [phone] [place]: St: ADM FAX: Gordon Alejandro MD FAX: Rual ButleraAris [phone] Name: RADHA BLANCO [facility] : 1935 Age/S: 84/M [address] [place] [address] Unit #: [id number] Loc: G.3303 [place] [address] Phys: Gordon Alejandro MD Acct: [id number] Dis Date: Status: ADM IN PHONE #: [phone] Exam Date: 05/07/2020 0848 FAX #: [phone] Reason: pulmonary edema EXAMS: CPT CODE: [id number] XR CHEST 1 V 70633 PROCEDURE: CHEST SINGLE VIEW INDICATION: pulmonary edema; [...] with adjacent atelectasis versus airspace disease. SL: [id number] at 0855 Reported and signed by: Jaleel Pierce M.D. CC: Navjot Cruz MD; Gordon Alejandro MD; Aris Ash MD Technologist: RT Kimo(R) Trnscrd Date/Time/By: 05/07/2020 (0855): By: Josefa Orig Print D/T: S: 05/07/2020 (0858) PAGE 1 Signed ReportCOMPREHENSIVE METABOLIC [id number] 05:03:00 Test Item Value Reference Range Interpretation [...] TOTAL (test code = ALKP) RENAL FUNCTION [id number] 05:03:00 Test Item Value Reference Range Interpretation Comments PHOSPHOROUS (test code = PHOS) 4.8 MG/DL 2.5-4.9 N [id number] 05:03:00 Test Item Value Reference Range Interpretation Comments MAGNESIUM (test code = MAG) 2.00 mg/dL 1.80-2.40 N CALCIUM [id number] 05:03:00 Test Item Value Reference Range Interpretation Comments CALCIUM IONIZED (test code = JONA) 1.38 MMOL/L 1.12-1.32 H COMPREHENSIVE METABOLIC [id number] 04:54:00 Test Item Value Reference Range Interpretation [...] TOTAL (test code = ALKP) RENAL FUNCTION [id number] 04:54:00 Test Item Value Reference Range Interpretation Comments PHOSPHOROUS (test code = PHOS) 4.8 MG/DL 2.5-4.9 N [id number] 04:54:00 Test Item Value Reference Range Interpretation Comments MAGNESIUM (test code = MAG) 2.00 mg/dL 1.80-2.40 N CALCIUM [id number] 04:54:00 Test Item Value Reference Range Interpretation Comments CALCIUM IONIZED (test code = JONA) MMOL/L 1.12-1.32 CBC W/AUTO [id number] 04:50:00 Test Item Value Reference Range Interpretation [...] REQUIRED (test code NO = MDIFF) PROTHROMBIN [id number] 04:48:00 Test Item Value Reference Range Interpretation [...] o prevent recurre nt infarct). CBC W/AUTO [id number] 04:48:00 Test Item Value Reference Range Interpretation [...] DIFF REQUIRED (test code = MDIFF) LACTIC [id number] 22:59:00 Test Item Value Reference Range Interpretation Comments LACTIC ACID (test code = LACT) 1.1 mmol/L 0.4-1.9 N CALCIUM [id number] 22:56:00 Test Item Value Reference Range Interpretation Comments CALCIUM IONIZED (test code = JONA) 1.27 MMOL/L 1.12-1.32 N CBC W/O [id number] 21:40:00 Test Item Value Reference Range Interpretation [...] code 10.4 fL 7.0-9.0 H = MPV) [id number] 21:40:00 Test Item Value Reference Range Interpretation Comments GLUBED (test code = 149 MG/DL 70-110 H Performe d by certified GLUBED) desizing machine operator at [facility] HEPATITIS [id number] 18:32:00 Test Item Value Reference Range Interpretation Comments AB HEPATITIS B SURFACE (test code = HBSAB) AG HEPATITIS B SURFACE NON REACTIVE INDEX NonReactive (test code = HBSAG) AB HEPATITIS B CORE IGM NON REACTIVE INDEX NON REACT. (test code = HBCMAB) COMMENTS: At start of hemodialysisACUTE HEPATITIS [id number] 18:32:00 Test Item Value Reference Range Interpretation Comments AB HEPATITIS A IGM (test NON REACTIVE INDEX NON REACT. code = HAVMAB) AB HEPATITIS C (test code NON REACTIVE INDEX NON REACT. = HCVAB) COMMENTS: At start of hemodialysisCOVID 19 Asymptomatic IH [id number] 13:14:00 Test Item Value Reference Range Interpretation [...] use by labo ratories certified under the [place] thatmeet the requirements to perform moderate, high or waivedcomplexit y tests. COMMENTS: If not done this admissionCBC W/O [id number] 12:41:00 Test Item Value Reference Range Interpretation [...] code 10.7 fL 7.0-9.0 H = MPV) [id number] 12:34:00 Test Item Value Reference Range Interpretation Comments GLUBED (test code = 134 MG/DL 70-110 H Performe d by certified GLUBED) desizing machine operator at [facility] PROTHROMBIN [id number] 12:28:00 Test Item Value Reference Range Interpretation [...] o prevent recurre nt infarct). BASIC METABOLIC [id number] 12:26:00 Test Item Value Reference Range Interpretation [...] 10.0 mg/dL 8.0-10.5 N CA) HEPATIC FUNCTION [id number] 12:26:00 Test Item Value Reference Range Interpretation [...] 54 IUnit/L 20-125 N code = ALKP) [id number] 12:26:00 Test Item Value Reference Range Interpretation Comments MAGNESIUM (test code = MAG) 2.14 mg/dL 1.80-2.40 N CBC W/AUTO [id number] 10:25:00 Test Item Value Reference Range Interpretation [...] (test NO code = MDIFF) CBC W/AUTO [id number] 10:17:00 Test Item Value Reference Range Interpretation [...]
[2020-11-27] MEDS ORDERED: NA CHLORIDE 0.9% 500 ML ONE (23:38)
[2020-11-27 23:39] LABS: Absolute Lymphocytes (CBC) 1.2 K/uL (0.7-4.9); Basophils % 0.7 % (0-1.3); Hematocrit 34.8 % (39.6-49.0); Lymphocytes % 10.6 % (15.3-44.8); MPV 8.1 fL (7.6-11.3); RBC Red Blood Cell Count 3.68 M/uL (4.33-5.43)
[2020-11-27 23:40] LABS: Protime INR 1.15
[2020-11-28 00:33] LABS: Albumin 2.5 g/dL (3.4-5.0); Bilirubin Direct 0.2 mg/dL (0-0.2); Bilirubin Total 0.4 mg/dL (0.2-1.0); Potassium 4.1 mmol/L (3.5-5.1); Protein, Total 7.4 g/dL (6.4-8.2); Troponin (Emerg Dept Use Only) 0.06 ng/mL (0.0-0.045)
--- NOTE | 2020-11-28 01:01 | ER ---
Nurse's Notes [facility] Name: Catrachito Blanco Age: 85 yrs Sex: Male : 1935 Arrival Date: 11/27/2020 Time: 21:11 Bed 19 Private MD: Diagnosis: Shortness of breath Presentation: 11/27 23:00 Chief complaint: Chief complaint: EMS states: Per EMS, " [facility] stated lh3 that his O2 was low and that he was SOB.". 23:00 Coronavirus screen: At this time, the client does not indicate any symptoms associated lh3 with coronavirus-19. Ebola Screen: No symptoms or risks identified at this time. Initial Sepsis Screen: Does the patient meet any 2 criteria? No. Patient's initial sepsis screen is negative. Does the patient have a suspected source of infection? No. Patient's initial sepsis screen is negative. Risk Assessment: Do you want to hurt yourself or someone else? Patient reports no desire to harm self or others. Onset of symptoms was November 27, 2020. 23:00 Method Of Arrival: EMS 3 23:00 Acuity: CHARU 4 lh3 Triage Assessment: 11/28 01:03 General: Appears in no apparent distress. General: Behavior is calm, cooperative, lh3 appropriate for age. Pain: Denies pain. Historical: - Allergies: 01:02 PENICILLINS; lh3 01:02 Adhesives; lh3 01:02 Losartan; lh3 01:02 Hydrochlorothiazide; lh3 - PMHx: 01:03 CHF; GI Bleed; Renal Disease; lh3 - Immunization history:: Adult Immunizations up to date. - Social history:: Patient/guardian denies using alcohol, street drugs, The patient lives with family, Smoking status: unknown. - Family history:: not pertinent. Screenin:09 Abuse screen: Denies threats or abuse. Nutritional screening: No deficits noted. lh3 Tuberculosis screening: No symptoms or risk factors identified. Fall Risk IV access (20 points). Assessment: 01:09 General: Appears in no apparent distress. Behavior is calm, cooperative, appropriate lh3 for age. Respiratory: Reports cough that is. Vital Signs: 11/27 23:00 BP 151 / 68; Pulse 69; Resp 18; Temp 97.3; Pulse Ox 99% on R/A; 3 11/28 01:03 BP 151 / 68; Pulse 69; Resp 18; Pulse Ox 99% on R/A; 3 01:09 Temp 99.6(O); 3 ED Course: 11/27 21:11 Patient arrived in ED. bp1 21:28 Matthew Rob MD is Attending Physician. ma2 22:13 XRAY Chest (1 view) In Process Unspecified. EDMS 22:22 Ana María Jalloh, RN is Primary Nurse. 3 22:43 Inserted saline lock: 22 gauge in right forearm, using aseptic technique. ds4 11/28 01:02 Triage completed. 3 01:03 Arm band placed on right wrist. 3 01:09 No provider procedures requiring assistance completed. 3 01:09 Patient has correct armband on for positive identification. Bed in low position. Call [facility] light in reach. Side rails up X 1. 02:47 IV discontinued, bleeding controlled. 3 Administered Medications: 11/27 21:37 CANCELLED (other order placee): NS 0.9% 1000 ml IV at 75 ml/hr continuous [facility] 23:26 Drug: NS 0.9% 500 ml Route: IV; Rate: 75 ml/min; Site: right forearm; [facility] 11/28 00:19 Follow up: IV Status: Completed infusion; IV Intake: 500ml [facility] Intake: 00:19 IV: 500ml; Total: 500ml. [facility] Outcome: 01:00 Discharge ordered by . ri2 02:29 Discharged to detention. Report called to Chente Olmedo at [place] [phone] 02:47 Condition: stable [facility] 02:47 Discharge instructions given to EMS, Instructed on discharge instructions, Demonstrated understanding of instructions. 02:48 Patient left the ED. [facility] Signatures: Dispatcher [employer] EDMS jT Bautista ds4 Matthew Rob MD MD ma2 Gretel Chiu bp1 Ana María Jalloh, ALFREDO RN 3
--- NOTE | 2020-11-28 01:01 | EDPHYS ---
Physician Documentation [facility] Name: Catrachito Blanco Age: 85 yrs Sex: Male : 1935 Arrival Date: 11/27/2020 Time: 21:11 Bed 19 Private MD: ED Physician Matthew Rob HPI: 11/27 21:39 This 85 yrs old Male presents to ER via Unassigned with complaints of ma2 shortness of breath . 21:39 Onset: The symptoms/episode began/occurred gradually, 1 day(s) ago. Associated signs ma2 and symptoms: Pertinent negatives: productive cough, dizziness, loss of consciousness, nausea. Severity of symptoms: At their worst the symptoms were mild in the emergency department the symptoms are unchanged. The patient has not experienced similar symptoms in the past. Sent here from a rehab center for episode of bradycardia, when EMS arrived vital signs was all within normal limits including pulse, blood pressure. SPO2 was 92 on room air, which is at baseline, patient states that he had episode of shortness of breath, no symptom at this time, he does have a bedsore that has been healing,. Historical: - Allergies: 11/28 01:02 PENICILLINS; lh3 01:02 Adhesives; lh3 01:02 Losartan; lh3 01:02 Hydrochlorothiazide; lh3 - PMHx: 01:03 CHF; GI Bleed; Renal Disease; lh3 - Immunization history:: Adult Immunizations up to date. - Social history:: Patient/guardian denies using alcohol, street drugs, The patient lives with family, Smoking status: unknown. - Family history:: not pertinent. ROS: 11/27 21:39 Constitutional: Negative for fever, chills, and weight loss. ma2 All other systems are negative. Exam: 21:39 Constitutional: This is a well developed, well nourished patient who is awake, alert, ma2 and in no acute distress. Head/Face: Normocephalic, atraumatic. Eyes: Pupils equal round and reactive to light, extra-ocular motions intact. Lids and lashes normal. Conjunctiva and sclera are non-icteric and not injected. Cornea within normal limits. Periorbital areas with no swelling, redness, or edema. ENT: Nares patent. No nasal discharge, no septal abnormalities noted. Tympanic membranes are normal and external auditory canals are clear. Oropharynx with no redness, swelling, or masses, exudates, or evidence of obstruction, uvula midline. Mucous membranes moist. Neck: Trachea midline, no thyromegaly or masses palpated, and no cervical lymphadenopathy. Supple, full range of motion without nuchal rigidity, or vertebral point tenderness. No Meningismus. Chest/axilla: Normal chest wall appearance and motion. Nontender with no deformity. No lesions are appreciated. Cardiovascular: Regular rate and rhythm with a normal S1 and S2. No gallops, murmurs, or rubs. Normal PMI, no JVD. No pulse deficits. Respiratory: Lungs have equal breath sounds bilaterally, clear to auscultation and percussion. No rales, rhonchi or wheezes noted. No increased work of breathing, no retractions or nasal flaring. Abdomen/GI: Soft, non-tender, with normal bowel sounds. No distension or tympany. No guarding or rebound. No evidence of tenderness throughout. Vital Signs: 23:00 BP 151 / 68; Pulse 69; Resp 18; Temp 97.3; Pulse Ox 99% on R/A; [facility] 09 01:03 BP 151 / 68; Pulse 69; Resp 18; Pulse Ox 99% on R/A; [facility] 01:09 Temp 99.6(O); [facility] MDM: 11/27 21:28 Patient medically screened. [facility] 21:39 Differential diagnosis: Anxiety Reaction asthma, Bronchitis CHF exacerbation. [facility] 11/28 01:00 Data reviewed: vital signs, nurses notes. Counseling: I had a detailed discussion with [facility] the patient and/or guardian regarding: the historical points, exam findings, and any diagnostic results supporting the discharge/admit diagnosis, the presence of at least one elevated blood pressure reading (>120/80) during this emergency department visit, the need for outpatient follow up. Response to treatment: the patient's symptoms have markedly improved after treatment. 01:02 ED course: Troponin and creatinine are mildly elevated, however this is better than his [facility] baseline. Patient does not have any symptom at this time.. 11/27 21:37 Order name: Basic Metabolic Panel; Complete Time: 00:59 [facility] 11/27 21:37 Order name: CBC with Diff; Complete Time: 00:10 [facility] 11/27 21:37 Order name: LFT's; Complete Time: 00:59 ok2 11/27 21:37 Order name: Magnesium; Complete Time: 00:59 ok2 11/27 21:37 Order name: NT PRO-BNP; Complete Time: 00:59 ok2 11/27 21:37 Order name: PT-INR; Complete Time: 00:10 ok2 11/27 21:37 Order name: Troponin (emerg Dept Use Only); Complete Time: 00:59 ok2 11/27 21:37 Order name: XRAY Chest (1 view) [facility] 11/27 21:37 Order name: EKG; Complete Time: 21:38 [facility] 11/28 00:25 Order name: SARS-COV-2 RT PCR; Complete Time: 00:32 [facility] 11/27 21:37 Order name: EKG - Nurse/Tech; Complete Time: 00:15 [facility] 11/27 21:37 Order name: IV Saline Lock; Complete Time: 22:46 [facility] 11/27 21:37 Order name: O2 Per Protocol; Complete Time: 22:46 [facility] 11/27 21:37 Order name: O2 Sat Monitoring; Complete Time: 22:46 ok2 11/27 21:37 Order name: Urine Dipstick-Ancillary (obtain specimen); Complete Time: 00:43 ma Administered Medications: 11/27 21:37 CANCELLED (other order placee): NS 0.9% 1000 ml IV at 75 ml/hr continuous ok2 23:26 Drug: NS 0.9% 500 ml Route: IV; Rate: 75 ml/min; Site: right forearm; 3 11/28 00:19 Follow up: IV Status: Completed infusion; IV Intake: 500ml [facility] Disposition Summary: 11/28/20 01:00 Discharge Ordered Location: Home ma2 Condition: Stable ma2 Diagnosis - Shortness of breath ma2 Followup: ma2 - With: Private Physician - When: Tomorrow - Reason: If symptoms return, Continuance of care Discharge Instructions: - Discharge Summary Sheet ma2 - Shortness of Breath, Adult, [id number] ma2 Forms: - Medication Reconciliation Form ma2 - Thank You Letter ma2 - Antibiotic Education ma2 - Prescription Opioid Use ma2 - SBAR form mw2 Signatures: Dispatcher [employer] EDMS Matthew Rob MD MD ma2 Ana María Jalloh RN RN lh3 Corrections: (The following items were deleted from the chart) 11/27 21:37 21:37 NS 0.9% 1000 ml IV at 75 ml/hr continuous ordered. [facility]ali de [facility]antos 23:13 21:38 CORONAVIRUS+BRZ ordered. EDMS EDMS
[2020-11-28 02:52] VITALS: BP 151/68; O2SAT 99
[2020-11-28 02:54] VITALS: TEMP 99.6
--- NOTE | 2020-11-28 07:04 | RAD REPORT ---
EXAM DESCRIPTION: RAD - Chest Single View - 11/27/2020 10:13 pm CLINICAL HISTORY: PRODUCTIVE COUGH COMPARISON: Chest Single View dated 11/18/2020; Chest Single View dated 08/12/2020; Chest Single View dated 08/11/2020; Chest Single View dated 05/06/2020 FINDINGS: Bilateral pleural effusions and widespread bilateral airspace disease. Cardiomegaly. Pacem brian. Atherosclerosis.No acute osseous abnormality. Small effusions bilaterally. IMPRESSION: Bilateral airspace disease and pleural effusions may represent pulmonary edema, though p neumonia difficult to exclude radiographically.
--- NOTE | 2020-11-28 12:51 | EKG ---
Test Date: 2020-11-27 Test Time: 23:41:40 Manufacturing Engineering Technician: AFIA MEASUREMENT RESULTS: Intervals: Rate: 70 TN: QRSD: 192 QT: 492 QTc: 531 [place]: P: TN: QRS: -62 T: 110 INTERPRETIVE STATEMENTS: Ventricular-paced rhythm Abnormal ECG Compared to ECG 11/18/2020 20:10:45 No significant changes Electronically Signed On 11-28-20 12:50:24 CDT by Jack Sterling
== END 2020-11-28 02:48 | disposition home or self-care (01) ==
LOC: ER 20:59
DX: R06.02 Shortness of breath (principal); I50.9 Heart failure, unspecified; Z20.822 Contact with and (suspected) exposure to COVID-19; Z88.0 Allergy status to penicillin; Z88.8 Allergy status to other drugs, medicaments and biological substances; Z91.048 Other nonmedicinal substance allergy status
CPT/HCPCS: 93005; 85025; 80048; 36415; 83735; 85610; 80076; 84484; 83880; 71045; 96360; 99284; U0003; J7040

== ENCOUNTER 2020-12-14 08:55 | Day surgery (SDC) | payer OTHER ==
[2020-12-14 09:31] LABS: Absolute Lymphocytes (CBC) 0.8 K/uL (0.7-4.9); Basophils % 0.5 % (0-1.3); Hematocrit 33.9 % (39.6-49.0); Lymphocytes % 5.9 % (15.3-44.8); MPV 7.3 fL (7.6-11.3); RBC Red Blood Cell Count 3.58 M/uL (4.33-5.43)
[2020-12-14 09:42] LABS: Potassium 3.4 mmol/L (3.5-5.1)
[2020-12-14] MEDS ORDERED: NA CHLORIDE 0.9% 500 ML ONE (09:55)
--- NOTE | 2020-12-14 09:57 | RAD REPORT ---
EXAM DESCRIPTION: RAD - Chest Single View - 12/14/2020 9:44 am CLINICAL HISTORY: PRE-OP COMPARISON: November 27 TECHNIQUE: AP portable chest image was obtained 12/14/2020 9:44 am . 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 Cardiomegaly and vascular engorgement are noted. Bilate ral pleural effusions are seen. There is interstitial and alveolar opacification present throughout b oth lung sandoval similar to fractionally worse than the November 27 study. Lower lung volume on today's study accentuates chest findings. Trachea is midline. No pneumothorax. No acute bony abnormality seen. No acute aortic findings suspec elizabeth. IMPRESSION: Bilateral pleural effusions with mild cardiomegaly. Interstitial and alveolar opacities are similar to comparison. Persistent or chronic failure/ volume overload would be suspected. A superimposed pneumonia cannot be excluded.
[2020-12-14] MEDS ORDERED: FENTANYL CITR 100 MCG/2 ML ONE (10:06)
[2020-12-14] MEDS ORDERED: propofoL 200 MG/20 ML VIAL IV ONE (10:06)
[2020-12-14] MEDS ORDERED: LIDOCAINE 1% MPF 5 ML VIAL ONE (10:06)
[2020-12-14] MEDS: BUPIVACAINE 0.5% PF 10 ML VIAL ONE ×2 (10:41→11:38)
[2020-12-14] MEDS: CEFAZOLIN/SWI 1gm 1 GM/10 ML SYR ONE ×2 (10:43→11:25)
[2020-12-14 12:32] VITALS: O2SAT 100
[2020-12-14 13:34] VITALS: BP 126/59; TEMP 97.5
--- NOTE | 2020-12-14 18:23 | EKG ---
Test Date: 2020-12-14 Test Time: 08:40:08 [employer]: TG MEASUREMENT RESULTS: Intervals: Rate: 70 MI: QRSD: 172 QT: 490 QTc: 529 [place]: P: MI: QRS: -29 T: 126 INTERPRETIVE STATEMENTS: Electronic ventricular pacemaker Compared to ECG 11/27/2020 23:41:40 No significant changes Electronically Signed On 12-14-20 18:20:57 CDT by Jack Sterling
--- NOTE | 2020-12-14 18:23 | EKG ---
Test Date: 2020-12-14 Test Time: 08:40:38 Animal Cytologist: TG MEASUREMENT RESULTS: Intervals: Rate: 70 MO: QRSD: 172 QT: 478 QTc: 516 [place]: P: MO: QRS: -25 T: 127 INTERPRETIVE STATEMENTS: Electronic ventricular pacemaker Compared to ECG 11/27/2020 23:41:40 No significant changes Electronically Signed On 12-14-20 18:20:56 CDT by Jack Sterling
--- NOTE | 2020-12-14 23:04 | OP ---
Date of Procedure: 12/14/2020 Surgeon: Saurabh Parnell MD Research Contracts Supervisor: OUMOU Boss. Preoperative Diagnosis: Infected sebaceous cyst, back. Postoperative Diagnosis: Infected sebaceous cyst, back. Procedure: Wide excision, back mass 10 x 6 cm with layered closure. Estimated Blood Loss: Minimal. Specimen: Inflamed sebaceous cyst and culture and sensitivity of the pus. Findings: As above. Anesthesia: General. Complications: None. Drains: A quarter-inch Leticia. Disposition: Patient tolerated the procedure in stable condition, taken to Recovery in good general condition. Home. Operative Note: Patient was brought to the OR and placed in supine position. General anesthesia was begun. Patient was placed in left lateral position, prepped and draped in the usual sterile fashion . Marcaine 0.5% was infiltrated locally around the inflamed cyst subcu tissue. Then, a 15-blade was used to make a 10 x 6 cm incision to include the entire cyst. Subcutaneous tissue was divided and t he entire cyst had pus and tissue in it and the cultures were done. The entire cyst was excised, sen t to Pathology. Wound was irrigated. Bleeding controlled with cautery and then flaps created superi charly and inferiorly and then Arun-Jamison drain quarter-inch placed and secured with 3-0 nylon and t hen 2-0 chromic used to approximate subcutaneous tissue and dermis and then 3-0 nylon used to close t he skin loosely. Sterile dressing was applied. Patient was awakened and taken to Recovery in good g eneral condition. Discharge Note: Patient will go to Day Surgery and home when stable. Condition: Stable. Discharge Instructions: Resume home medications and diet. Activity as tolerated. Offload. Change dressings daily. Tylenol No. 3 one tablet p.o. q.6 p.r.n. pain and Cipro 250 mg daily and I will fol low the patient in [place] upon discharge. /MODL Voice ID: [id number] Report ID: [id number]
== END 2020-12-14 14:10 | disposition home or self-care (01) ==
LOC: OR 08:55
PROVIDERS: ATTEND Surgery
PROC: 0JB70ZZ Excision of Back Subcutaneous Tissue and Fascia, Open Approach (ICD-10-PCS; principal; 2020-12-14 11:30)
DX: L72.0 Epidermal cyst (principal); Z20.822 Contact with and (suspected) exposure to COVID-19
CPT/HCPCS: 93005 ×2; 87070; 85025; 80048; 36415; 87205 ×2; 82947; 88304; 87075; 87077; 87186; 71045; 11406; U0003; J2704; J3010; J0690; J7040; 88305

== ENCOUNTER 2020-12-22 13:25 | Observation (INO) | payer OTHER ==
[2020-12-22 14:52] LABS: Basophils % 0.4 % (0-1.3); Hematocrit 38.1 % (39.6-49.0); Lymphocytes % 6.5 % (15.3-44.8); MPV 7.7 fL (7.6-11.3); RBC Red Blood Cell Count 3.98 M/uL (4.33-5.43)
[2020-12-22 15:08] LABS: Albumin 2.6 g/dL (3.4-5.0); Bilirubin Direct 0.3 mg/dL (0-0.2); Bilirubin Total 0.6 mg/dL (0.2-1.0); Potassium 3.6 mmol/L (3.5-5.1); Protein, Total 8.3 g/dL (6.4-8.2)
--- NOTE | 2020-12-22 15:40 | RAD REPORT ---
EXAM DESCRIPTION: CT - Abdomen Pelvis Wo Contrast - 12/22/2020 3:25 pm CLINICAL HISTORY: Abdominal pain. llq abd swelling;Abd pain COMPARISON: Spine Lumbar Wo Con dated 02/23/2019; Chest Single View dated 12/14/2020 TECHNIQUE: CT imaging of the abdomen and pelvis was performed without contrast. Solid organ, bowel a nd vascular assessment is limited due to lack of IV and oral contrast. All CT scans are performed using dose optimization technique as appropriate and may include automated exposure control or mA/KV adjustment according to patient size. FINDINGS: Moderate right and small left pleural effusion is seen with opacities in both the lung bas es likely atelectasis or early infiltrate.Moderate gastric distention is noted. Noncontrast assessment of the liver, spleen, adrenal glands and pancreas are within normal limits.Atr ophy of the right kidney is seen. The left kidney is not visualized. Hernia is seen along the left aspect of the pannus containing colon and small intestine without evide nce of obstruction. No free fluid, free air or abscess. The appendix is normal. Moderate to large fat containing right inguinal hernia. Significant lumbar degenerative changes are present.Significant irregularity of the level of the endp lates and disc space at L4-5 is noted. This is a greater than typically noted with degenerative garrison e. IMPRESSION: Significant endplate irregularity and sclerosis of adjacent vertebral bodies noted at L4 -5. This is greater than typically seen with simple degenerative change and discitis is a possibility . Tissue laxity/hernia along the left flank region without bowel obstruction or incarceration findings. Moderate to large fat containing right inguinal hernia. Bilateral pleural effusions, greater on the right with patchy opacity in both lung bases. A limited non-contrast examination was performed as detailed.
[2020-12-22] MEDS ORDERED: ONDANSETRON 4 MG/2 ML VIAL IV PRN (15:57)
--- NOTE | 2020-12-22 16:03 | EDPHYS ---
Physician Documentation [facility] Name: Catrachito Blanco Age: 85 yrs Sex: Male : 1935 Arrival Date: 12/22/2020 Time: 13:31 Bed 5 Private MD: ED Physician Matthew Rob HPI: 12/22 15:13 This 85 yrs old Male presents to ER via EMS with complaints of Abdominal ma2 Swelling, . 15:13 Onset: The symptoms/episode began/occurred gradually, 1 week(s) ago. Associated signs ma2 and symptoms: Pertinent negatives: ataxia, combativeness, confusion, diarrhea, headache. Current symptoms: In the emergency department the patient's symptoms are unchanged from the initial presentation. The patient has experienced similar episodes in the past. Historical: - Allergies: 13:34 Adhesives; sv 13:34 hydrochlorothiazide; sv 13:34 Losartan; sv 13:34 PENICILLINS; sv - PMHx: 13:34 CHF; GI Bleed; Renal Disease; HD TThS; Anemia; Diabetes mellitus; hyperlipidemia; High sv cholesterol; Hyperparathyroidism; Vit D deficiency; - Immunization history:: Adult Immunizations. - Social history:: Smoking status: Patient denies any tobacco usage or history of. - Family history:: not pertinent. ROS: 15:13 Constitutional: Negative for fever, chills, and weight loss. ma2 15:13 All other systems are negative. Exam: 15:13 Constitutional: This is a well developed, well nourished patient who is awake, alert, ma2 and in no acute distress. ENT: Nares patent. No nasal discharge, no septal abnormalities noted. Tympanic membranes are normal and external auditory canals are clear. Oropharynx with no redness, swelling, or masses, exudates, or evidence of obstruction, uvula midline. Mucous membranes moist. Neck: Trachea midline, no thyromegaly or masses palpated, and no cervical lymphadenopathy. Supple, full range of motion without nuchal rigidity, or vertebral point tenderness. No Meningismus. Chest/axilla: Normal chest wall appearance and motion. Nontender with no deformity. No lesions are appreciated. Cardiovascular: Regular rate and rhythm with a normal S1 and S2. No gallops, murmurs, or rubs. Normal PMI, no JVD. No pulse deficits. Respiratory: Lungs have equal breath sounds bilaterally, clear to auscultation and percussion. No rales, rhonchi or wheezes noted. No increased work of breathing, no retractions or nasal flaring. Abdomen/GI: abdomin is distended, otherwise Soft, non-tender, with normal bowel sounds. No tympany. No guarding or rebound. No evidence of tenderness throughout. Skin: Warm, dry with normal turgor. Normal color with no rashes, no lesions, and no evidence of cellulitis. MS/ Extremity: Pulses equal, no cyanosis. Neurovascular intact. Full, normal range of motion. Neuro: Awake and alert, GCS 15, oriented to person, place, time, and situation. Cranial nerves II-XII grossly intact. Motor strength 5/5 in all extremities. Sensory grossly intact. Cerebellar exam normal. Normal gait. Vital Signs: 13:31 BP 122 / 57; Pulse 70; Resp 14; Temp 97.8; Pulse Ox 95% ; Height 6 ft. 0 in. (182.88 sv cm); Pain 0/10; 15:00 BP 109 / 57; Pulse 76; Resp 15; Pulse Ox 97% on R/A; sv 18:19 BP 112 / 60; Pulse 73; Resp 18; Pulse Ox 97% on R/A; Pain 0/10; ch5 MDM: 13:39 Patient medically screened. ma2 15:13 Differential Diagnosis: electrolyte abnormality, hypoglycemia, UTI, volume depletion. ma2 15:54 Data reviewed: vital signs, nurses notes. ma2 15:59 Counseling: I had a detailed discussion with the patient and/or guardian regarding: the [facility] historical points, exam findings, and any diagnostic results supporting the discharge/admit diagnosis, the presence of at least one elevated blood pressure reading (>120/80) during this emergency department visit, the need for outpatient follow up. Response to treatment: the patient's symptoms have markedly improved after treatment. ED course: Patient has hypertension mild, status post dialysis, will give him some IV fluids, his white count is elevated to 15 K, he has patchy fluid overload both lungs, has a pressure ulcer that is in good order with no sign of worsening cellulitis. Blood cultures sent. Patient has left-sided abdominal hernia, however it is nontender bowel habit is within normal limits, no sign of strangulation or incarceration or need for emergent surgical consult. Discussed Dr. Ash he recommends admitting the patient and he will follow up.. 12/22 13:39 Order name: Basic Metabolic Panel [facility] 12/22 13:39 Order name: CBC with Diff [facility] 12/22 13:39 Order name: Hepatic Function [facility] 12/22 13:39 Order name: Lipase [facility] 12/22 13:40 Order name: Basic Metabolic Panel; Complete Time: 15:50 [facility] 12/22 13:40 Order name: CBC with Automated Diff; Complete Time: 15:50 [facility] 12/22 13:40 Order name: Liver (Hepatic) Function; Complete Time: 15:50 [facility] 12/22 13:40 Order name: Lipase; Complete Time: 15:50 [facility] 12/22 15:55 Order name: Blood Culture Adult (2) [facility] 12/22 15:55 Order name: Lactate; Complete Time: 17:46 [facility] 12/22 15:59 Order name: Basic Metabolic Panel [facility] 12/22 15:59 Order name: Basic Metabolic Panel [facility] 12/22 15:59 Order name: CBC with Automated Diff [facility] 12/22 15:59 Order name: CBC with Automated Diff [facility] 12/22 13:39 Order name: IV Saline Lock; Complete Time: 14:21 [facility] 12/22 13:39 Order name: Labs collected and sent; Complete Time: 14:21 [facility] 12/22 14:38 Order name: CT Abd/Pelvis - Without Contrast; Complete Time: 15:50 [facility] 12/22 15:59 Order name: Magnesium [facility] 12/22 15:59 Order name: Magnesium [facility] 12/22 16:13 Order name: COVID-19 : Document "Date of Symptom Onset" if Symptomatic. eb 12/22 17:31 Order name: CORONAVIRUS [facility] 12/22 18:30 Order name: SARS-COV-2 RT PCR [facility] 12/22 19:16 Order name: Glucose, Ancillary Testing EDOR Administered Medications: 17:23 Drug: NS 0.45 % 500 ml Route: IV; Rate: 75 ml/hr; Site: left antecubital; ch5 17:24 Drug: Rocephin (cefTRIAXone) 1 grams Route: IV; Rate: calculated rate; Site: right ch5 antecubital; Disposition Summary: 12/22/20 16:02 Hospitalization Ordered Hospitalization Status: Observation ma2 Provider: Aris Ash ma2 Location: Telemetry/MedSurg (observation) ma2 Condition: Stable ma2 Problem: new ma2 Symptoms: are unchanged ma2 Bed/Room Type: Standard tn2 Room Assignment: 207(12/22/20 20:08) mw Diagnosis - Hypotension, unspecified ma2 - End stage renal disease ma2 - Elevated white blood cell count, unspecified ma2 Forms: - Medication Reconciliation Form ma2 - SBAR form ma2 Signatures: Dispatcher [employer] Teresa Boudreaux RN RN Mirta Leal RN RN Eric Rodriguez PA PA jmm Alzahri, Mohammad, MD MD [facility] Seth Davalos RN RN ch5 Corrections: (The following items were deleted from the chart) 20:08 16:02 ma2 mw
--- NOTE | 2020-12-22 16:03 | ER ---
Nurse's Notes [facility] Name: Catrachito lBanco Age: 85 yrs Sex: Male : 1935 Arrival Date: 12/22/2020 Time: 13:31 Bed 5 Private MD: Diagnosis: Hypotension, unspecified;End stage renal disease;Elevated white blood cell count, unspecified Presentation: 12/22 13:31 Chief complaint: EMS states: called out by [facility] for concerns regarding left sv sided "mass" that has not improved and increasing AMS. HD took off 2L today. BP 120/70 HR-60-70s 96% RA. [place] reported an extra 9kg of weight today. Ebola Screen: No symptoms or risks identified at this time. Initial Sepsis Screen: Does the patient meet any 2 criteria? No. Patient's initial sepsis screen is negative. Does the patient have a suspected source of infection? No. Patient's initial sepsis screen is negative. Risk Assessment: Do you want to hurt yourself or someone else? Patient reports no desire to harm self or others. Onset of symptoms was December 22, 2020. 13:31 Method Of Arrival: EMS: [facility] sv 13:31 Acuity: CHARU 3 sv Triage Assessment: 13:31 General: Appears in no apparent distress. comfortable, well developed, Behavior is sv calm, cooperative, appropriate for age. Pain: Denies pain. Neuro: Level of Consciousness is awake, alert, obeys commands, Oriented to person, place, time, situation, Moves all extremities. Full function. Respiratory: Airway is patent Respiratory effort is even, unlabored, Respiratory pattern is regular, symmetrical. GI: Abdomen is round swelling noted to the left side. Derm: Skin is normal. Historical: - Allergies: 13:34 Adhesives; sv 13:34 hydrochlorothiazide; sv 13:34 Losartan; sv 13:34 PENICILLINS; sv - PMHx: 13:34 CHF; GI Bleed; Renal Disease; HD TThS; Anemia; Diabetes mellitus; hyperlipidemia; High sv cholesterol; Hyperparathyroidism; Vit D deficiency; - Immunization history:: Adult Immunizations. - Social history:: Smoking status: Patient denies any tobacco usage or history of. - Family history:: not pertinent. Screenin:02 Abuse screen: Denies threats or abuse. Denies injuries from another. Nutritional sv screening: No deficits noted. Tuberculosis screening: Fall Risk None identified. Assessment: 14:00 GI: Abdomen is mass noted in LUQ. ch5 Vital Signs: 13:31 BP 122 / 57; Pulse 70; Resp 14; Temp 97.8; Pulse Ox 95% ; Height 6 ft. 0 in. (182.88 sv cm); Pain 0/10; 15:00 BP 109 / 57; Pulse 76; Resp 15; Pulse Ox 97% on R/A; sv 18:19 BP 112 / 60; Pulse 73; Resp 18; Pulse Ox 97% on R/A; Pain 0/10; ch5 ED Course: 13:31 Patient arrived in ED. sv 13:34 Triage completed. sv 13:36 Arm band placed on. sv 13:36 Patient has correct armband on for positive identification. Bed in low position. Call mh5 light in reach. Side rails up X2. Adult w/ patient. Warm blanket given. Pillow given. monitor worker on. Pulse ox on. NIBP on. 13:39 Matthew Rob MD is Attending Physician. ma2 14:01 Missed attempt(s): 20 gauge in right forearm. antecubital area. mh5 14:15 Inserted saline lock: 20 gauge in right forearm, using aseptic technique. Blood sv collected. Flushed right forearm with 2 ml normal saline. 14:21 Basic Metabolic Panel Sent. sv 14:21 CBC with Diff Sent. sv 14:21 Hepatic Function Sent. sv 14:21 Lipase Sent. sv 15:18 Seth Davalos RN is Primary Nurse. sv 15:25 CT Abd/Pelvis - Without Contrast In Process Unspecified. EDMS 15:30 Awaiting radiology results. Awaiting re-evaluation by ER provider. sv 16:02 Aris Ash MD is Hospitalizing Provider. ma2 17:10 COVID-19 : Document "Date of Symptom Onset" if Symptomatic. Sent. ch5 17:24 CBC with Automated Diff Sent. ch5 17:24 Magnesium Sent. ch5 17:24 Magnesium Sent. ch5 17:24 Basic Metabolic Panel Sent. ch5 17:24 CBC with Automated Diff Sent. ch5 17:24 Basic Metabolic Panel Sent. ch5 18:46 CORONAVIRUS Sent. ch5 19:24 Primary Nurse role handed off by Seth Davalos RN eb 20:29 Jeovanny Jones, ALFREDO is Primary Nurse. Administered Medications: 17:23 Drug: NS 0.45 % 500 ml Route: IV; Rate: 75 ml/hr; Site: left antecubital; 5 17:24 Drug: Rocephin (cefTRIAXone) 1 grams Route: IV; Rate: calculated rate; Site: right ch5 antecubital; Outcome: 16:02 Decision to Hospitalize by Provider. [facility] 20:56 Patient left the ED. nicholas 21:18 Admitted to Tele accompanied by nurse, via stretcher, with chart, Report called to wg Cassandra Signatures: Dispatcher [employer] Teresa Boudreaux RN RN sv Martinez, Maria Ayanna Hunter RN RN ea Alzahri, Mohammad, MD MD [facility] Johana Whitman Seth Davalos, ALFREDO FUENTES Jeovanny Bee RN Corrections: (The following items were deleted from the chart) 13:36 13:31 Pulse 70bpm; Resp 14bpm; Pulse Ox 95%; Temp 97.8F; Pain 0/10; sv sv
[2020-12-22] MEDS: INSULIN -REGULAR HUMAN 50 UNIT/0.5 ML ML SQ SCH ×2 (16:30→21:42)
[2020-12-22] MEDS ORDERED: CEFTRIAXONE 1000 MG/VIAL ONE (17:40)
[2020-12-22] MEDS ORDERED: NACHLORIDE 0.45% 1,000 ML IV ONE (17:40)
--- NOTE | 2020-12-22 18:20 | P.HP ---
Certification for Inpatient Patient admitted to: Observation With expected LOS: <2 Midnights Patient will require the following post-hospital care: None Practitioner: I am a practitioner with admitting privileges, knowledge of patient current condition, hospital course, and medical plan of care. Services: Services provided to patient in accordance with Admission requirements found in Title 42 Section 412.3 of the Code of Federal Regulations Patient History Date of Service: 12/22/20 Primary Care Provider: arvind Reason for admission: hypotension during dialysis History of Present Illness: Patient was hypotensive during dialysis. The patient was sent to the Er. He has a herniation of his abdominal wall. The patient is sitting in the ER. His son is in the room. He has no complaints. Have been taking care of him. The patient has been having worsening mental function over the last few months. He was recently started on seroquel. Have been weaning down his meds. Allergies adhesive tape Allergy (Verified 12/14/20 08:33) Hives/Rash hydrochlorothiazide [From Hyzaar] Allergy (Verified 12/14/20 08:33) Itching/Hives/Rash losartan [From Hyzaar] Allergy (Verified 12/14/20 08:33) Itching/Hives/Rash Penicillins Allergy (Verified 12/14/20 08:33) Itching/Hives/Rash Home Medications: Gabapentin [Neurontin*] 300 mg PO BEDTIME 03/11/19 Latanoprost/Pf [Latanoprost 0.005% Eye Drop] 1 drop EACH EYE BEDTIME 03/11/19 Albuterol Sulfate [Albuterol Sulfate Hfa] 1 puff IH SEECOM PRN 08/12/20 Apixaban [Eliquis *] 1 tab PO Q12H 08/12/20 Fluticasone Propionate 1 spray IH BID 08/12/20 Lanthanum Carbonate [Fosrenol] 1 tab PO SEECOM 08/12/20 Pantoprazole [Protonix Tab*] 1 tab PO DAILY 08/12/20 - Past Medical/Surgical History Diabetic: Yes -: Arthritis -: Anemia -: Diabetes-NIDDM -: HTN -: HD-T,TH,S -: Depression -: Sleep Apnes- CPAP@home -: [place] in 2011 with 2 stents -: Pacemaker -: Left Nephrectomy -: Cardiac stents x2 -: ORIF of the Right akkle -: cardiac cath x2 -: Dialysis Graft placement in the Left upper arm - Family History Mother -: Heart disease, Hypertension, Diabetes, Stroke, Other (see notes) Notes: OK Father -: Heart disease, Hypertension - Social History Alcohol use: No CD- Drugs: No Caffeine use: Yes Review of Systems 10-point ROS is otherwise unremarkable Physical Examination - Physical Exam General: Alert, In no apparent distress HEENT: Atraumatic, PERRLA, Mucous membr. moist/pink, EOMI, Sclerae nonicteric Neck: Supple, 2+ carotid pulse no bruit, No LAD, Without JVD or thyroid abnormality Respiratory: Clear to auscultation bilaterally, Normal air movement Cardiovascular: Regular rate/rhythm, Normal S1 S2 Gastrointestinal: Normal bowel sounds, No tenderness, Distended (left side of the abdomen. ) Musculoskeletal: No tenderness Integumentary: No rashes Neurological: Normal gait, Normal speech, Normal strength at 5/5 x4 extr, Normal tone, Normal affect Lymphatics: No axilla or inguinal lymphadenopathy - Studies Laboratory Data (last 24 hrs) 12/22/20 14:15: WBC 14.80 H, Hgb 12.4 L, Hct 38.1 L, Plt Count 198 D 12/22/20 14:15: Sodium 136, Potassium 3.6, BUN 32 H, Creatinine 4.50 H, Glucose 170 H, Total Bilirubin 0.6, AST 14 L, ALT 9 L, Alkaline Phosphatase 117, Lipase 29 L Assessment and Plan - Problems (Diagnosis) (1) End stage renal disease Current Visit: No Status: Chronic Plan: He had some hypotension. However he is currently stable. Will keep him under observation. Possible return to [place] in the morning. (2) Abdominal wall hernia Current Visit: Yes Status: Chronic Plan: Patient is stable. Have discussed with Dr. Mcelroy. No reason for surgery. (3) Congestive heart failure (CHF) Current Visit: No Status: Chronic Plan: no swelling just completed his dialysis Qualifiers: Heart failure type: systolic Heart failure chronicity: chronic Qualified Code(s): I50.22 - Chronic systolic (congestive) heart failure Discharge Plan: Group Home Plan to discharge in: 24 Hours - Advance Directives Does patient have a Living Will: No Does patient have a Durable POA for Healthcare: Yes - Code Status/Comfort Care Code Status Assessed: No Code Status: Full Code Physician Review: Patient Assessed, Agree with Above Assessment and Plan Critical Care: No Time Spent Managing Pts Care (In Minutes): 45
[2020-12-22] MEDS ORDERED: LANTHANUM 1000 MG TAB PO SCH (19:00)
[2020-12-22 19:02] VITALS: BMI 25.7
[2020-12-22] MEDS: METRONIDAZOLE 500mg IVPB 500 MG/100 ML BAG IV SCH (19:08)
[2020-12-22] MEDS ORDERED: METRONIDAZOLE 500mg IVPB 500 MG/100 ML BAG IV ONE (19:30)
[2020-12-23] MEDS: METRONIDAZOLE 500mg IVPB 500 MG/100 ML BAG IV SCH ×3 (00:46→11:00)
[2020-12-23 06:12] LABS: Absolute Lymphocytes (CBC) 1.2 K/uL (0.7-4.9); Basophils % 0.7 % (0-1.3); Hematocrit 29.3 % (39.6-49.0); MPV 7.5 fL (7.6-11.3); RBC Red Blood Cell Count 3.08 M/uL (4.33-5.43)
[2020-12-23 06:39] LABS: Magnesium 2.4 mg/dL (1.8-2.4); Potassium 3.4 mmol/L (3.5-5.1)
[2020-12-23] MEDS: INSULIN -REGULAR HUMAN 50 UNIT/0.5 ML ML SQ SCH ×3 (07:30→15:55)
[2020-12-23] MEDS ORDERED: PANTOPRAZOLE 40MG TABLET PO SCH (09:00)
[2020-12-23 09:16] VITALS: O2SAT 92
[2020-12-23] MEDS: LANTHANUM 1000 MG PO SCH ×2 (12:21→16:05)
--- NOTE | 2020-12-23 14:45 | P.DS ---
Admission Date: 12/22/20 Discharge Date: 12/23/20 Primary Care Provider: arvind Disposition: TRANSFER TO [facility] Discharge Condition: GOOD Reason for Admission: hypotension during dialysis - Problems (1) End stage renal disease Current Visit: No Status: Chronic (2) Abdominal wall hernia Current Visit: Yes Status: Chronic (3) Congestive heart failure (CHF) Current Visit: No Status: Chronic Qualifiers: Heart failure type: systolic Heart failure chronicity: chronic Qualified Code(s): I50.22 - Chronic systolic (congestive) heart failure Brief History of Present Illness: Patient was hypotensive during dialysis. The patient was sent to the Er. He has a herniation of his abdominal wall. The patient is sitting in the ER. His son is in the room. He has no complaints. Have been taking care of him. The patient has been having worsening mental function over the last few months. He was recently started on seroquel. Have been weaning down his meds. Hospital Course: Patient is very stable today. He is sitting with his and daughter. Ate lunch very well. No complaints. He had no hypotension while in house. Will try sending him back to the assisted. Vital Signs/Physical Exam: Temp Pulse Resp BP Pulse Ox 97.6 F 70 18 129/75 98 12/23/20 12:00 12/23/20 12:00 12/23/20 12:00 12/23/20 12:00 12/23/20 12:00 General: Alert, In no apparent distress HEENT: Atraumatic, PERRLA, EOMI Neck: Supple, JVD not distended Respiratory: Clear to auscultation bilaterally, Normal air movement Cardiovascular: Regular rate/rhythm, Normal S1 S2 Gastrointestinal: Normal bowel sounds, No tenderness Musculoskeletal: No tenderness Integumentary: No rashes Neurological: Normal speech, Normal tone, Normal affect Lymphatics: No axilla or inguinal lymphadenopathy Laboratory Data at Discharge: WBC 11.50 K/uL (4.3-10.9) H D 12/23/20 06:00 Hgb 9.8 g/dL (13.6-17.9) L D 12/23/20 06:00 Hct 29.3 % (39.6-49.0) L D 12/23/20 06:00 Plt Count 167 K/uL (152-406) 12/23/20 06:00 Sodium 137 mmol/L (136-145) 12/23/20 06:00 Potassium 3.4 mmol/L (3.5-5.1) L 12/23/20 06:00 BUN 38 mg/dL (7-18) H 12/23/20 06:00 Creatinine 5.38 mg/dL (0.55-1.3) H* 12/23/20 06:00 Glucose 123 mg/dL (74-106) H 12/23/20 06:00 Magnesium 2.4 mg/dL (1.8-2.4) 12/23/20 06:00 Total Bilirubin 0.6 mg/dL (0.2-1.0) 12/22/20 14:15 AST 14 U/L (15-37) L 12/22/20 14:15 ALT 9 U/L (12-78) L 12/22/20 14:15 Alkaline Phosphatase 117 U/L (45-117) 12/22/20 14:15 Lipase 29 U/L (73-393) L 12/22/20 14:15 Home Medications: Gabapentin [Neurontin*] 300 mg PO BEDTIME 03/11/19 Latanoprost/Pf [Latanoprost 0.005% Eye Drop] 1 drop EACH EYE BEDTIME 03/11/19 Albuterol Sulfate [Albuterol Sulfate Hfa] 1 puff IH SEECOM PRN 08/12/20 Apixaban [Eliquis *] 1 tab PO Q12H 08/12/20 Fluticasone Propionate 1 spray IH BID 08/12/20 Lanthanum Carbonate [Fosrenol] 1 tab PO SEECOM 08/12/20 Pantoprazole [Protonix Tab*] 1 tab PO DAILY 08/12/20 fentaNYL [Fentanyl] 25 mcg TD Q3D 12/23/20 Diet: Renal Followup: Aris Ash MD [Primary Care Provider] - Time spent managing pt's care (in minutes): 30
[2020-12-23] MEDS ORDERED: APIXABAN 2.5 MG TABLET PO SCH (15:00)
[2020-12-23 17:17] VITALS: BP 97/55; TEMP 97
[2020-12-23] MEDS ORDERED: LATANOPROST 0.005% 2.5ML OPTH OPTH SCH (21:00)
[2020-12-23] MEDS ORDERED: GABAPENTIN 300 MG CAP PO SCH (21:00)
== END 2020-12-23 17:36 ==
LOC: ER 13:25 → ERHOLD 16:06 → 2ND 20:16
PROVIDERS: ADMIT Internal Medicine; ATTEND Internal Medicine
DX: I95.3 Hypotension of hemodialysis (principal); I13.2 Hypertensive heart and chronic kidney disease with heart failure and with stage 5 chronic kidney disease, or end stage renal disease; E11.22 Type 2 diabetes mellitus with diabetic chronic kidney disease; N18.6 End stage renal disease; I50.22 Chronic systolic (congestive) heart failure; Z99.2 Dependence on renal dialysis; K46.9 Unspecified abdominal hernia without obstruction or gangrene; G47.30 Sleep apnea, unspecified; F32.9 Major depressive disorder, single episode, unspecified; M19.90 Unspecified osteoarthritis, unspecified site; E78.5 Hyperlipidemia, unspecified; E21.3 Hyperparathyroidism, unspecified; E55.9 Vitamin D deficiency, unspecified; I25.2 Old myocardial infarction; Z95.0 Presence of cardiac pacemaker; Z95.5 Presence of coronary angioplasty implant and graft; Z79.01 Long term (current) use of anticoagulants; Z88.0 Allergy status to penicillin; Z88.8 Allergy status to other drugs, medicaments and biological substances; Z91.048 Other nonmedicinal substance allergy status; Z90.5 Acquired absence of kidney; Z20.822 Contact with and (suspected) exposure to COVID-19; Z82.49 Family history of ischemic heart disease and other diseases of the circulatory system; Z83.3 Family history of diabetes mellitus; Z82.3 Family history of stroke
CPT/HCPCS: 87040 ×2; 85025 ×2; 80048 ×2; 36415; 83735; 82947 ×4; 80076; 83605; 83690; 74176; 96374; 99285; U0003; G0378 ×3

== ENCOUNTER 2021-01-10 13:46 | Observation (INO) | payer OTHER ==
[2021-01-10 14:40] LABS: Basophils % 0.6 % (0-1.3); Lymphocytes % 7.1 % (15.3-44.8); MPV 8.1 fL (7.6-11.3); RBC Red Blood Cell Count 3.48 M/uL (4.33-5.43)
[2021-01-10 14:43] LABS: Protime INR 1.17
--- NOTE | 2021-01-10 15:04 | ER ---
Nurse's Notes [facility] Name: Catrachito Blanco Age: 85 yrs Sex: Male : 1935 Arrival Date: 01/10/2021 Time: 13:52 Bed 13 Private MD: Diagnosis: End stage renal disease-on HD;Hypoxemia;Systolic (congestive) heart failure;Pleural condition, unspecified-BILATERAL Presentation: 01/10 14:01 Chief complaint: EMS states: Difficulty Breathing, 2 hrs into his dialysis. 84% on RA, oh given 4lNC. Hsa pacemaker, fistula to left arm. Coronavirus screen: Vaccine status: Patient reports receiving the 2nd dose of the covid vaccine. Ebola Screen: No symptoms or risks identified at this time. Initial Sepsis Screen: Does the patient meet any 2 criteria? Altered Mental Status. Does the patient have a suspected source of infection? No. Patient's initial sepsis screen is negative. Risk Assessment: Do you want to hurt yourself or someone else? Patient reports no desire to harm self or others. Onset of symptoms was January 10, 2021 at 13:30. 14:01 Method Of Arrival: EMS: [facility] [place] 14:01 Acuity: CHARU 2 oh Triage Assessment: 14:05 Respiratory: Reports shortness of breath Onset: The symptoms/episode began/occurred oh states hes always SOB but gets worse when hes at dialysis, the patient has severe shortness of breath. 14:08 General: Appears distressed, Behavior is cooperative, appropriate for age, anxious. oh Historical: - Allergies: 14:04 Adhesives; oh 14:04 hydrochlorothiazide; oh 14:04 Losartan; oh 14:04 PENICILLINS; oh - PMHx: 14:04 Anemia; CHF; diabetes mellitus; GI Bleed; HD TTHS; High Cholesterol; Hyperlipidemia; oh hyperparathyroidism; Renal Disease; vit d deficiency; - Immunization history:: Adult Immunizations up to date. - Social history:: Smoking status: unknown. Screenin:06 Abuse screen: Denies threats or abuse. Nutritional screening: No deficits noted. oh Tuberculosis screening: No symptoms or risk factors identified. Fall Risk Gait- Mental Status-. Assessment: 14:07 Respiratory: Reports shortness of breath Breath sounds are diminished. oh 14:07 Respiratory: Respiratory effort is labored. oh 14:08 Respiratory: Airway is patent. oh 14:08 Cardiovascular: Rhythm is with capture. oh Vital Signs: 14:01 BP 124 / 54; Pulse 70; Resp 24; Temp 97.7(O); Pulse Ox 100% on 4 lpm NC; Weight 83.46 oh kg; Height 6 ft. 0 in. (182.88 cm); 17:51 BP 144 / 73; Pulse 70; Resp 21; Pulse Ox 100% on R/A; oh 14:01 Body Mass Index 24.95 (83.46 kg, 182.88 cm) oh ED Course: 13:52 Patient arrived in ED. oh 13:55 Nestor Santiago MD is Attending Physician. chaitanya 14:00 Jamin Lim, NILES is Primary Nurse. oh 14:04 Triage completed. oh 14:06 Arm band placed on right wrist. EKG completed in triage. Results shown to MD. oh 14:07 Bed in low position. Call light in reach. Side rails up X2. oh 14:47 Inserted saline lock: 22 gauge in left forearm, using aseptic technique. Missed mh5 attempt(s): 20 gauge in left forearm. 14:48 Warm blanket given. loss prevention officer on. Pulse ox on. NIBP on. mh5 14:58 Liver (Hepatic) Function Sent. dh4 14:58 Magnesium Sent. dh4 14:58 Basic Metabolic Panel Sent. dh4 14:58 Lactate Sent. dh4 14:59 Blood Culture Adult (2) Sent. dh4 14:59 Basic Metabolic Panel Sent. dh4 14:59 CBC with Diff Sent. dh4 14:59 LFT's Sent. dh4 14:59 Magnesium Sent. dh4 14:59 NT PRO-BNP Sent. dh4 14:59 Troponin (emerg Dept Use Only) Sent. dh4 14:59 Initial lab(s) drawn, by ED staff, sent to lab. EKG done, by ED staff, reviewed by shahram Santiago MD. 15:00 XRAY Chest (1 view) In Process Unspecified. EDMS 15:01 David West DO is Hospitalizing Provider. chaitanya 15:10 Inserted saline lock: 18 gauge in right EJ, using aseptic technique. oh 15:26 Aris Ash MD is Hospitalizing Provider. chaitanya 17:57 Report given to niles Giraldo pt awaiting transport to rm 221, pt his chair ridden , sacral oh wound, cyst to back. fistula to left arm, 18G to right jugular. 18:49 Patient admitted, IV remains in place. oh Administered Medications: No medications were administered Outcome: 15:03 Decision to Hospitalize by Provider. chaitanya 18:49 Admitted to [facility] oh 18:49 Condition: stable 18:49 Instructed on the need for admit. 18:49 Patient left the ED. oh Signatures: Dispatcher [employer] EDNY Nestor Santiago MD MD cha Martinez, Maria [facility] Malik Dickson [facility] Jamin Lim, RN RN oh
--- NOTE | 2021-01-10 15:04 | EDPHYS ---
Physician Documentation [facility] Name: Catrachito Blanco Age: 85 yrs Sex: Male : 1935 Arrival Date: 01/10/2021 Time: 13:52 Bed 13 Private MD: ED Physician Nestor Santiago HPI: 01/10 14:50 This 85 yrs old Male presents to ER via EMS with complaints of Breathing chaitanya Difficulty. 14:50 The patient has shortness of breath at rest, with light activity. Onset: The chaitanya symptoms/episode began/occurred just prior to arrival, this morning. Duration: The symptoms are continuous, and are steadily getting worse. The patient's shortness of breath is aggravated by supine position. Associated signs and symptoms: Pertinent positives: non-productive cough. Severity of symptoms: At their worst the symptoms were moderate in the emergency department the symptoms are unchanged. The patient has experienced similar episodes in the past, multiple times. Historical: - Allergies: 14:04 Adhesives; oh 14:04 hydrochlorothiazide; oh 14:04 Losartan; oh 14:04 PENICILLINS; oh - PMHx: 14:04 Anemia; CHF; diabetes mellitus; GI Bleed; HD TTHS; High Cholesterol; Hyperlipidemia; oh hyperparathyroidism; Renal Disease; vit d deficiency; - Immunization history:: Adult Immunizations up to date. - Social history:: Smoking status: unknown. ROS: 14:55 Constitutional: Negative for fever, chills, and weight loss, Eyes: Negative for injury, chaitanya pain, redness, and discharge, ENT: Negative for injury, pain, and discharge, Neck: Negative for injury, pain, and swelling, Abdomen/GI: Negative for abdominal pain, nausea, vomiting, diarrhea, and constipation, Back: Negative for injury and pain, : Negative for injury, bleeding, discharge, and swelling, MS/Extremity: Negative for injury and deformity, Skin: Negative for injury, rash, and discoloration, Neuro: Negative for headache, weakness, numbness, tingling, and seizure, Psych: Negative for depression, anxiety, suicide ideation, homicidal ideation, and hallucinations, Allergy/Immunology: Negative for hives, rash, and allergies, Endocrine: Negative for neck swelling, polydipsia, polyuria, polyphagia, and marked weight changes, Hematologic/Lymphatic: Negative for swollen nodes, abnormal bleeding, and unusual bruising. 14:55 Cardiovascular: Positive for edema, orthopnea. 14:55 Respiratory: Positive for cough, with no reported sputum, shortness of breath, at rest. Exam: 14:55 Constitutional: This is a well developed, well nourished patient who is awake, alert, chaitanya and in no acute distress. Head/Face: Normocephalic, atraumatic. Eyes: Pupils equal round and reactive to light, extra-ocular motions intact. Lids and lashes normal. Conjunctiva and sclera are non-icteric and not injected. Cornea within normal limits. Periorbital areas with no swelling, redness, or edema. ENT: Nares patent. No nasal discharge, no septal abnormalities noted. Tympanic membranes are normal and external auditory canals are clear. Oropharynx with no redness, swelling, or masses, exudates, or evidence of obstruction, uvula midline. Mucous membranes moist. Neck: Trachea midline, no thyromegaly or masses palpated, and no cervical lymphadenopathy. Supple, full range of motion without nuchal rigidity, or vertebral point tenderness. No Meningismus. Chest/axilla: Normal chest wall appearance and motion. Nontender with no deformity. No lesions are appreciated. Abdomen/GI: Soft, non-tender, with normal bowel sounds. No distension or tympany. No guarding or rebound. No evidence of tenderness throughout. Back: No spinal tenderness. No costovertebral tenderness. Full range of motion. Male : Normal genitalia with no discharge or lesions. Skin: Warm, dry with normal turgor. Normal color with no rashes, no lesions, and no evidence of cellulitis. MS/ Extremity: Pulses equal, no cyanosis. Neurovascular intact. Full, normal range of motion. Neuro: Awake and alert, GCS 15, oriented to person, place, time, and situation. Cranial nerves II-XII grossly intact. Motor strength 5/5 in all extremities. Sensory grossly intact. Cerebellar exam normal. Normal gait. Psych: Awake, alert, with orientation to person, place and time. Behavior, mood, and affect are within normal limits. 14:55 Cardiovascular: Rate: normal, Rhythm: regular, Pulses: Pulses are 4+ in bilateral radial, brachial, femoral, popliteal, posterior tibial and and dorsalis pedis arteries.. Heart sounds: murmur, systolic, grade 2 over 6, Edema: is not appreciated, JVD: is noted bilaterally, to the angle of the jaw. 14:55 ECG was reviewed by the Attending Physician. Vital Signs: 14:01 BP 124 / 54; Pulse 70; Resp 24; Temp 97.7(O); Pulse Ox 100% on 4 lpm NC; Weight 83.46 oh kg; Height 6 ft. 0 in. (182.88 cm); 17:51 BP 144 / 73; Pulse 70; Resp 21; Pulse Ox 100% on R/A; oh 14:01 Body Mass Index 24.95 (83.46 kg, 182.88 cm) oh Procedures: 15:59 Peripheral line: by aseptic technique a peripheral line was placed in the right [facility] external jugular vein. MDM: 13:55 Patient medically screened. chaitanya 15:22 Differential diagnosis: Anemia asthma, Bronchitis CHF exacerbation, Chronic Obstructive chaitanya Pulmonary Disease Pneumothorax pulmonary edema, reactive airway disease. Data reviewed: vital signs, nurses notes, lab test result(s), EKG, radiologic studies, plain films. 15:57 The patient's Wells Deep Vein Thrombosis Score was calculated as follows: Total Score: chaitanya 0-2 Pts- Low Risk. The patient's pulmonary embolism risk score was calculated as follows: Total Score: 0-2 points. This patient was found to be at low risk for a pulmonary embolism by using the Well's assessment criteria. Immunization status: Pneumococcal vaccine: Influenza vaccine: Data interpreted: cat tender: rate is 70 beats/min, rhythm is regular, Pulse oximetry: on room air is 85 %. Test interpretation: by ED physician or midlevel provider: ECG, plain radiologic studies. Counseling: I had a detailed discussion with the patient and/or guardian regarding: the historical points, exam findings, and any diagnostic results supporting the discharge/admit diagnosis, lab results, radiology results, the need for further work-up and treatment in the hospital. 01/10 14:00 Order name: Basic Metabolic Panel [facility] 01/10 14: Order name: CBC with Diff [facility] 01/10 14: Order name: LFT's [facility] 01/10 14: Order name: Magnesium [facility] 01/10 14: Order name: NT PRO-BNP [facility] 01/10 14: Order name: PT-INR; Complete Time: 14:48 [facility] 01/10 14: Order name: Troponin (emerg Dept Use Only) [facility] 01/10 14:00 Order name: Blood Culture Adult (2) [facility] 01/10 14:00 Order name: Lactate; Complete Time: 15:12 [facility] 01/10 14:01 Order name: Basic Metabolic Panel [facility] 01/10 14:01 Order name: CBC with Automated Diff; Complete Time: 14:48 [facility] 01/10 14:01 Order name: Liver (Hepatic) Function [facility] 01/10 14:01 Order name: Magnesium [facility] 01/10 14:00 Order name: XRAY Chest (1 view); Complete Time: 15:21 [facility] 01/10 14:00 Order name: EKG; Complete Time: 14:01 [facility] 01/10 14:00 Order name: Cardiac monitoring; Complete Time: 14:09 [facility] 01/10 14:00 Order name: EKG - Nurse/Tech; Complete Time: 14:09 [facility] 01/10 14:00 Order name: IV Saline Lock; Complete Time: 14:59 [facility] 01/10 14:00 Order name: Labs collected and sent; Complete Time: 14:59 [facility] 01/10 14:00 Order name: O2 Per Protocol; Complete Time: 14:09 [facility] 01/10 14:00 Order name: O2 Sat Monitoring; Complete Time: 14:09 [facility] 01/10 14:00 Order name: Urine Dipstick-Ancillary (obtain specimen); Complete Time: 16:12 [facility] 01/10 15:17 Order name: SARS-COV-2 RT PCR [facility] 01/10 16:10 Order name: CONS Physician Consult [facility] 01/10 16:54 Order name: Urine Dipstick-Ancillary EDMS EC:55 Rate is 70 beats/min. Rhythm is regular. QRS [place] is Normal. NE interval is normal. QRS chaitanya interval is normal. QT interval is normal. No Q waves. T waves are Normal. No ST changes noted. Clinical impression: Abnormal EKG without significant change and No evidence of ischemia. Interpreted by me. Reviewed by me. Administered Medications: No medications were administered Disposition Summary: 01/10/21 15:03 Hospitalization Ordered Hospitalization Status: Inpatient Admission chaitanya Location: Telemetry/MedSurg (Inpatient) chaitanya Condition: Fair chaitanya Problem: new chaitanya Symptoms: have improved chaitanya Bed/Room Type: Standard chaitanya Provider: Aris Ash(01/10/21 15:26) chaitanya Room Assignment: 221(01/10/21 17:43) quintin Diagnosis - End stage renal disease - on HD chaitanya - Hypoxemia chaitanya - Systolic (congestive) heart failure chaitanya - Pleural condition, unspecified - BILATERAL chaitanya Forms: - Medication Reconciliation Form chaitanya - SBAR form chaitanya Signatures: Dispatcher [employer] EDMS Lina Hameed Corey, MD MD cha Harriott, Oneka RN RN oh Corrections: (The following items were deleted from the chart) 15: 14:01 CORONAVIRUS+MR.LAB.BRZ ordered. EDPA EDMS 15: 15:03 David West cha [facility] 17:43 15:03 chaitanya ribeiro
--- NOTE | 2021-01-10 15:15 | RAD REPORT ---
EXAM DESCRIPTION: RAD - Chest Single View - 01/10/2021 3:00 pm CLINICAL HISTORY: DYSPNEA Chest pain. COMPARISON: Chest Single View dated 12/14/2020; Chest Single View dated 11/27/2020; Chest Single View dated 11/18/2020; Chest Single View dated 08/12/2020 FINDINGS: Portable technique limits examination quality. Since the 12/14/2020, moderate bilateral pulmonary opacities are again seen, with probable mild incre ase in the size of the right pleural effusion. The heart is moderately enlarged in size. Aortic ather osclerosis is present. Dual lead pacer device is noted.The findings are most likely related to modera te CHF.
[2021-01-10 15:24] LABS: Albumin 2.4 g/dL (3.4-5.0); Bilirubin Total 0.5 mg/dL (0.2-1.0); Protein, Total 7.5 g/dL (6.4-8.2); Troponin (Emerg Dept Use Only) 0.14 ng/mL (0.0-0.045)
[2021-01-10 15:25] LABS: Bilirubin Direct 0.2 mg/dL (0-0.2); Magnesium 2.2 mg/dL (1.8-2.4); Potassium 3.3 mmol/L (3.5-5.1)
[2021-01-10 16:54] LABS: Urine Blood 3+ (Negative); Urine Glucose Negative (Negative); Urine Protein 2+ (Negative); Urine pH 5.5 (5.0-7.0)
--- NOTE | 2021-01-10 17:38 | P.HP ---
Certification for Inpatient Patient admitted to: Observation With expected LOS: <2 Midnights Patient will require the following post-hospital care: Longterm Practitioner: I am a practitioner with admitting privileges, knowledge of patient current condition, hospital course, and medical plan of care. Services: Services provided to patient in accordance with Admission requirements found in Title 42 Section 412.3 of the Code of Federal Regulations Patient History Date of Service: 01/10/21 Primary Care Provider: Nilsa Reason for admission: sob during dialysis History of Present Illness: Patient is a residential patient of mine. He has a history of dialysis and right hip pain. The patient has been getting progressively weaker. Which led to fpc placement. Which lead to his becoming more bedbound, delirious and a general worsening of his functions Today he was in dialysis. Started complaining of difficulty breathing. The patient has some hypoxia and was sent to the ER. In the er he is a bit confused. he has well formed speach. However he seem confused. Most of the history was from the patients son who was at the bedside. Allergies adhesive tape Allergy (Verified 12/14/20 08:33) Hives/Rash hydrochlorothiazide [From Hyzaar] Allergy (Verified 12/14/20 08:33) Itching/Hives/Rash losartan [From Hyzaar] Allergy (Verified 12/14/20 08:33) Itching/Hives/Rash Penicillins Allergy (Verified 12/14/20 08:33) Itching/Hives/Rash Home Medications: Gabapentin [Neurontin*] 300 mg PO BEDTIME 03/11/19 Latanoprost/Pf [Latanoprost 0.005% Eye Drop] 1 drop EACH EYE BEDTIME 03/11/19 Albuterol Sulfate [Albuterol Sulfate Hfa] 1 puff IH SEECOM PRN 08/12/20 Apixaban [Eliquis *] 1 tab PO Q12H 08/12/20 Fluticasone Propionate 1 spray IH BID 08/12/20 Lanthanum Carbonate [Fosrenol] 1 tab PO SEECOM 08/12/20 Pantoprazole [Protonix Tab*] 1 tab PO DAILY 08/12/20 fentaNYL [Fentanyl] 25 mcg TD Q3D 12/23/20 - Past Medical/Surgical History Diabetic: Yes -: Arthritis -: Anemia -: Diabetes-NIDDM -: HTN -: HD-T,TH,S -: Depression -: Sleep Apnes- [place]home [place] -: Pacemaker -: Left Nephrectomy -: Cardiac stents x2 -: ORIF of the Right akkle -: cardiac cath x2 -: Dialysis Graft placement in the Left upper arm - Family History Mother -: Heart disease, Hypertension, Diabetes, Stroke, Other (see notes) Notes: [place] Father -: Heart disease, Hypertension - Social History Alcohol use: No CD- Drugs: No Caffeine use: Yes Review of Systems 10-point ROS is otherwise unremarkable Physical Examination - Physical Exam General: In no apparent distress, Delirious HEENT: Atraumatic, PERRLA, Mucous membr. moist/pink, EOMI, Sclerae nonicteric Neck: Supple, 2+ carotid pulse no bruit, No LAD, Without JVD or thyroid abnormality Respiratory: Clear to auscultation bilaterally, Normal air movement Cardiovascular: Regular rate/rhythm, Normal S1 S2 Gastrointestinal: Normal bowel sounds, No tenderness Musculoskeletal: No tenderness Integumentary: No rashes Neurological: Normal gait, Normal speech, Normal strength at 5/5 x4 extr, Normal tone, Normal affect Lymphatics: No axilla or inguinal lymphadenopathy - Studies Laboratory Data (last 24 hrs) 01/10/21 14:26: PT 13.5 H, INR 1.17 01/10/21 14:26: WBC 13.50 H, Hgb 10.8 L, Hct 33.0 L, Plt Count 194 01/10/21 14:26: Sodium 133 L, Potassium 3.3 L, BUN 30 H, Creatinine 3.61 H, Glucose 151 H, Magnesium 2.2, Total Bilirubin 0.5, AST 25, ALT 13, Alkaline Phosphatase 117 Assessment and Plan - Problems (Diagnosis) (1) End stage renal disease Current Visit: No Status: Chronic Plan: has a consult for Dr. Silver. Will complete his dialysis and send him back to [place] tomorrow. (2) Congestive heart failure (CHF) Current Visit: No Status: Chronic Plan: Patient has some pleural effusion. Hopefully will improve with dialysis. Will continue to follow. Qualifiers: Heart failure type: systolic Heart failure chronicity: chronic Qualified Code(s): I50.22 - Chronic systolic (congestive) heart failure (3) Sciatica Current Visit: Yes Status: Acute Plan: chronic back and hip pain. He has been spending more time in bed. Will have the patient placed in a chair for an hour today Qualifiers: Laterality: right Qualified Code(s): M54.31 - Sciatica, right side (4) UTI (urinary tract infection) Current Visit: Yes Status: Acute Plan: Mild Will give him ceftriaxone. can d/c on oral bactrim Qualifiers: Urinary tract infection type: acute cystitis (5) Dementia Current Visit: Yes Status: Acute Plan: Patient is a bit worse. Will have the the patient seen by PT. Try to get him out of the bed both here and [place]. Son states the patient did not want hospice. Only DNR order. Which is 2 different things. Son is very realistic about the exterminator prognosis. However he is waiting for the the family(Mrs Blanco) to be ready.. This is appropriate. Qualifiers: Dementia type: Alzheimer's Alzheimer's disease onset: other onset Dementia behavioral disturbance: without behavioral disturbance Qualified Code(s): G30.8 - Other Alzheimer's disease; F02.80 - Dementia in other diseases classified elsewhere without behavioral disturbance (6) Pleural effusion Current Visit: No Status: Acute - Advance Directives Does patient have a Living Will: No Does patient have a Durable POA for Healthcare: No - Code Status/Comfort Care Code Status Assessed: Yes Code Status: Do Not Attempt Resuscitat Physician Review: Patient Assessed, Agree with Above Assessment and Plan Critical Care: No Time Spent Managing Pts Care (In Minutes): 50
[2021-01-10] MEDS ORDERED: CEFTRIAXONE 1 GM/NS 50 ML 1 GM/50 ML BAG IV SCH (18:00)
[2021-01-10] MEDS ORDERED: IPRATROPIUM BROM 0.5MG/2.5ML NEB PRN (18:13)
[2021-01-10] MEDS ORDERED: ALBUTEROL 2.5 MG/3 ML NEB SOL NEB PRN (18:13)
[2021-01-10] MEDS ORDERED: ONDANSETRON 4 MG/2 ML VIAL IV PRN ×2 (18:13)
[2021-01-10] MEDS ORDERED: ACETAMINOPHEN 325 MG TABLET PO PRN (18:40)
[2021-01-10] MEDS ORDERED: FUROSEMIDE 40 MG/4 ML VIAL IV SCH (19:00)
[2021-01-10] MEDS ORDERED: ENOXAPARIN 40 MG/0.4 ML SQ SCH (20:00)
[2021-01-11 02:38] VITALS: O2SAT 93
[2021-01-11 03:24] VITALS: BMI 24.9
[2021-01-11 06:22] LABS: Absolute Lymphocytes (CBC) 1.1 K/uL (0.7-4.9); Basophils % 0.6 % (0-1.3); Hematocrit 32.1 % (39.6-49.0); Lymphocytes % 7.4 % (15.3-44.8); MPV 7.6 fL (7.6-11.3); RBC Red Blood Cell Count 3.39 M/uL (4.33-5.43)
[2021-01-11 07:12] LABS: BUN Blood Urea Nitrogen 34 mg/dL (7-18); Bicarbonate 28 mmol/L (21-32); Glucose Level 132 mg/dL (74-106); Potassium 3.2 mmol/L (3.5-5.1); Sodium Level 135 mmol/L (136-145)
[2021-01-11 07:13] LABS: NT PRO-BNP > 175000 pg/mL (<450)
--- NOTE | 2021-01-11 07:13 | P.CNS ---
Date of Consult: 01/11/21 Reason for Consult: ESRD Requesting Physician: Aris Ash Primary Care Provider: Nilsa Chief Complaint: sob during dialysis History of Present Illness: 85M from SNF w/ PMHx of ESRD on HD qTTSat at [facility], who developed SOB while receiving dialysis yesterday, found to have hypoxic respiratory failure, admitted for further eval & mngt. Allergies adhesive tape Allergy (Verified 12/14/20 08:33) Hives/Rash hydrochlorothiazide [From Hyzaar] Allergy (Verified 12/14/20 08:33) Itching/Hives/Rash losartan [From Hyzaar] Allergy (Verified 12/14/20 08:33) Itching/Hives/Rash Penicillins Allergy (Verified 12/14/20 08:33) Itching/Hives/Rash Home Medications: Gabapentin [Neurontin*] 300 mg PO BEDTIME 03/11/19 Latanoprost/Pf [Latanoprost 0.005% Eye Drop] 1 drop EACH EYE BEDTIME 03/11/19 Apixaban [Eliquis *] 1 tab PO BID 08/12/20 Lanthanum Carbonate [Fosrenol] 1 tab PO SEECOM 08/12/20 Pantoprazole [Protonix Tab*] 1 tab PO DAILY 08/12/20 fentaNYL [Fentanyl] 25 mcg TD Q3D 12/23/20 Albuterol Sulfate [Albuterol Sulfate 0.083% Neb Soln] 2.5 mg IH Q6HP PRN 01/10/21 Ascorbic Acid [Vitamin C] 500 mg PO BID 01/10/21 Codeine/APAP [Tylenol W/Codeine #3 tab] 1 tab PO BIDP PRN 01/10/21 Doxycycline Hyclate 100 mg PO BID 01/10/21 Multivitamin with Minerals [Multivitamins with Minerals] 1 each PO DAILY 01/10/21 Zinc Sulfate [Zinc Sulfate*] 220 mg PO DAILY 01/10/21 - Past Medical/Surgical History Diabetic: Yes -: Arthritis -: Anemia -: Diabetes-NIDDM -: HTN -: HD-T,TH,S -: Depression -: Sleep Apnes- [place]AP@home -: [place] in [place] with 2 stents -: Pacemaker -: Left Nephrectomy -: Cardiac stents x2 -: ORIF of the Right akkle -: cardiac cath x2 -: Dialysis Graft placement in the Left upper arm - Family History Mother Medical History: Heart disease, Hypertension, Diabetes, Stroke, Other (see notes) Notes: [place] Father Medical History: Heart disease, Hypertension - Social History Smoking Status: Unknown if ever smoked Alcohol use: No CD- Drugs: No Caffeine use: Yes Physical Examination Temp Pulse Resp BP Pulse Ox 97.6 F 70 18 133/70 94 01/11/21 04:00 01/11/21 04:00 01/11/21 04:00 01/11/21 04:00 01/11/21 04:00 General: In no apparent distress HEENT: Atraumatic, Normocephalic Neck: Supple, JVD not distended Respiratory: Other (Symmetric chest expansion) Cardiovascular: No rubs, No murmurs Gastrointestinal: Soft and benign, Non-distended Musculoskeletal: No clubbing Integumentary: No warmth Neurological: Normal tone Urinary: Other (No bladder distention) External genitalia: Deferred Rectal: Deferred Laboratory Data (last 24 hrs) 01/10/21 14:26: PT 13.5 H, INR 1.17 01/10/21 14:26: WBC 13.50 H, Hgb 10.8 L, Hct 33.0 L, Plt Count 194 01/10/21 14:26: Sodium 133 L, Potassium 3.3 L, BUN 30 H, Creatinine 3.61 H, Glucose 151 H, Magnesium 2.2, Total Bilirubin 0.5, AST 25, ALT 13, Alkaline Phosphatase 117 Conclusions/Impression: # ESRD on HD qTTS at [facility] HD received today Renal vit po daily Renal diet Monitor renal panel # Acute respiratory failure, CHF w/ pleural effusion HD/UF # UTI Abx per primary team # Htn BP controlled Cont current med regimen # Anemia H&H at goal Continue ARIC # Secondary hyperparathyroidism Continue Fosreno Monitor Ca & Phos # Dementia Supportive care # Dispo Ok to dc today
[2021-01-11] MEDS ORDERED: CODEINE 30MG/APAP 300MG TAB PO PRN (08:05)
--- NOTE | 2021-01-11 08:10 | P.DS ---
Admission Date: 01/10/21 Discharge Date: 01/11/21 Primary Care Provider: Nilsa Disposition: TRANSFER TO [facility] Discharge Condition: GOOD Reason for Admission: sob during dialysis - Problems (1) End stage renal disease Current Visit: No Status: Chronic (2) Congestive heart failure (CHF) Current Visit: No Status: Chronic Qualifiers: Heart failure type: systolic Heart failure chronicity: chronic Qualified Code(s): I50.22 - Chronic systolic (congestive) heart failure (3) Sciatica Current Visit: Yes Status: Acute Qualifiers: Laterality: right Qualified Code(s): M54.31 - Sciatica, right side (4) UTI (urinary tract infection) Current Visit: Yes Status: Acute Qualifiers: Urinary tract infection type: acute cystitis (5) Dementia Current Visit: Yes Status: Acute Qualifiers: Dementia type: Alzheimer's Alzheimer's disease onset: other onset Dementia behavioral disturbance: without behavioral disturbance Qualified Code(s): G30.8 - Other Alzheimer's disease; F02.80 - Dementia in other diseases classified elsewhere without behavioral disturbance (6) Pleural effusion Current Visit: No Status: Acute Brief History of Present Illness: Patient is a custodial patient of mine. He has a history of dialysis and right hip pain. The patient has been getting progressively weaker. Which led to care home placement. Which lead to his becoming more bedbound, delirious and a general worsening of his functions Today he was in dialysis. Started complaining of difficulty breathing. The pa carmelo has some hypoxia and was sent to the ER. In the er he is a bit confused. he has well formed speach. However he seem confused. Most of the history was from the patients son who was at the bedside. Hospital Course: Patient was admitted after getting agitated and sob at dialysis. He is doing better. Was seen by Dr. Soares. He was a bit agitated last night. He has had a lot of changes recently. Will try to manage him better in [place]. Thank you for allowing me to take part in his care. Vital Signs/Physical Exam: Temp Pulse Resp BP Pulse Ox 97.6 F 70 18 133/70 94 01/11/21 04:00 01/11/21 04:00 01/11/21 04:00 01/11/21 04:00 01/11/21 04:00 General: Alert, In no apparent distress HEENT: Atraumatic, PERRLA, EOMI Neck: Supple, JVD not distended Respiratory: Clear to auscultation bilaterally, Normal air movement Cardiovascular: Regular rate/rhythm, Normal S1 S2 Gastrointestinal: Normal bowel sounds, No tenderness Musculoskeletal: No tenderness Integumentary: No rashes Neurological: Normal speech, Normal tone, Normal affect Lymphatics: No axilla or inguinal lymphadenopathy Laboratory Data at Discharge: WBC 14.40 K/uL (4.3-10.9) H 01/11/21 05:56 Hgb 10.5 g/dL (13.6-17.9) L 01/11/21 05:56 Hct 32.1 % (39.6-49.0) L 01/11/21 05:56 Plt Count 154 K/uL (152-406) D 01/11/21 05:56 PT 13.5 SECONDS (9.5-12.5) H 01/10/21 14:26 INR 1.17 01/10/21 14:26 Sodium 135 mmol/L (136-145) L 01/11/21 05:56 Potassium 3.2 mmol/L (3.5-5.1) L 01/11/21 05:56 BUN 34 mg/dL (7-18) H 01/11/21 05:56 Creatinine 4.22 mg/dL (0.55-1.3) H 01/11/21 05:56 Glucose 132 mg/dL (74-106) H 01/11/21 05:56 Magnesium 2.2 mg/dL (1.8-2.4) 01/10/21 14:26 Total Bilirubin 0.5 mg/dL (0.2-1.0) 01/10/21 14:26 AST 25 U/L (15-37) 01/10/21 14:26 ALT 13 U/L (12-78) 01/10/21 14:26 Alkaline Phosphatase 117 U/L (45-117) 01/10/21 14:26 Troponin I 0.11 ng/mL (0.0-0.045) H 01/10/21 22:25 Home Medications: Gabapentin [Neurontin*] 300 mg PO BEDTIME 03/11/19 Latanoprost/Pf [Latanoprost 0.005% Eye Drop] 1 drop EACH EYE BEDTIME 03/11/19 Apixaban [Eliquis *] 1 tab PO BID 08/12/20 Lanthanum Carbonate [Fosrenol] 1 tab PO SEECOM 08/12/20 Pantoprazole [Protonix Tab*] 1 tab PO DAILY 08/12/20 fentaNYL [Fentanyl] 25 mcg TD Q3D 12/23/20 Albuterol Sulfate [Albuterol Sulfate 0.083% Neb Soln] 2.5 mg IH Q6HP PRN 01/10/21 Ascorbic Acid [Vitamin C] 500 mg PO BID 01/10/21 Codeine/APAP [Tylenol W/Codeine #3 tab] 1 tab PO BIDP PRN 01/10/21 Doxycycline Hyclate 100 mg PO BID 01/10/21 Multivitamin with Minerals [Multivitamins with Minerals] 1 each PO DAILY 01/10/21 Zinc Sulfate [Zinc Sulfate*] 220 mg PO DAILY 01/10/21 Diet: Renal Activity: Ad eric Followup: Aris Ash MD [ACTIVE - CAN ADMIT] - Jen Davenport MD [ACTIVE - CAN ADMIT] - Time spent managing pt's care (in minutes): 25
[2021-01-11] MEDS ORDERED: ZINC SULFATE 220 MG CAP PO SCH (09:00)
[2021-01-11] MEDS ORDERED: ASCORBIC ACID 500 MG TABLET PO SCH (09:00)
[2021-01-11] MEDS ORDERED: APIXABAN 2.5 MG TABLET PO SCH (09:00)
[2021-01-11] MEDS ORDERED: MULTIVITAMIN TAB PO SCH (09:00)
--- NOTE | 2021-01-11 11:03 | RAD REPORT ---
EXAM DESCRIPTION: AVISChest Single View01/11/2021 10:12 am CLINICAL HISTORY: Chest pain COMPARISON: January 10, 2021 FINDINGS: No significant change in the bilateral pleural effusions right greater than left with biba silar atelectasis. Bilateral pulmonary opacities unchanged probably pulmonary edema. Heart remains enlarged. Pacemaker l phil in place
[2021-01-11] MEDS ORDERED: FOSRENOL 1000 MG PO SCH (12:00)
[2021-01-11 16:11] VITALS: BP 136/66; TEMP 97.3
[2021-01-11] MEDS ORDERED: GABAPENTIN 300 MG CAP PO SCH (21:00)
[2021-01-11] MEDS ORDERED: LATANOPROST 0.005% 2.5ML OPTH OPTH SCH (21:00)
[2021-01-12] MEDS ORDERED: PANTOPRAZOLE 40MG TABLET PO SCH (07:30)
--- NOTE | 2021-01-12 11:47 | EKG ---
Test Date: 2021-01-10 Test Time: 14:01:55 [employer] Setter: DEEP MEASUREMENT RESULTS: Intervals: Rate: 70 SC: QRSD: 214 QT: 508 QTc: 548 [place]: P: SC: QRS: -53 T: 129 INTERPRETIVE STATEMENTS: Wide QRS rhythm Left axis deviation Nonspecific intraventricular block Inferior infarct, age undetermined Abnormal ECG Compared to ECG 12/14/2020 08:40:38 Uncertain supraventricular rhythm now present Left-axis deviation now present Myocardial infarct finding now present Ventricular-paced complex(es) or rhythm no longer present Electronically Signed On 01-12-21 11:44:57 CDT by Jack Sterling
[2021-01-16 15:37] LABS: HBsAG Nonreactive (Nonreactive)
== END 2021-01-11 16:21 ==
LOC: ER 13:46 → INTOOBSV 16:05 → ERHOLD 16:05 → 2ND 18:00
PROVIDERS: ADMIT Internal Medicine; ATTEND Internal Medicine
DX: J96.01 Acute respiratory failure with hypoxia (principal); I13.2 Hypertensive heart and chronic kidney disease with heart failure and with stage 5 chronic kidney disease, or end stage renal disease; I50.22 Chronic systolic (congestive) heart failure; N18.6 End stage renal disease; E11.22 Type 2 diabetes mellitus with diabetic chronic kidney disease; Z99.2 Dependence on renal dialysis; N30.00 Acute cystitis without hematuria; M54.31 Sciatica, right side; M25.551 Pain in right hip; N25.81 Secondary hyperparathyroidism of renal origin; E78.00 Pure hypercholesterolemia, unspecified; G47.30 Sleep apnea, unspecified; G30.8 Other Alzheimer's disease; F02.80 Dementia in other diseases classified elsewhere, unspecified severity, without behavioral disturbance, psychotic disturbance, mood disturbance, and anxiety; M19.90 Unspecified osteoarthritis, unspecified site; D64.9 Anemia, unspecified; I25.2 Old myocardial infarction; Z66 Do not resuscitate; Z20.822 Contact with and (suspected) exposure to COVID-19; Z95.0 Presence of cardiac pacemaker; Z95.5 Presence of coronary angioplasty implant and graft; Z99.81 Dependence on supplemental oxygen; Z79.01 Long term (current) use of anticoagulants; Z88.0 Allergy status to penicillin; Z88.8 Allergy status to other drugs, medicaments and biological substances; Z91.09 Other allergy status, other than to drugs and biological substances; Z90.5 Acquired absence of kidney; Z82.49 Family history of ischemic heart disease and other diseases of the circulatory system; Z83.3 Family history of diabetes mellitus; Z82.3 Family history of stroke
CPT/HCPCS: 93005; 87040 ×2; 85025 ×2; 80048 ×2; 36415; 83735; 85610; 82947 ×5; 80076; 83605; 81003; 84484 ×2; 84134; 86704; 83880 ×2; 87340; 86706; 86803; 71045 ×2; 99285; U0003; J1940; J1650; J0696; G0378 ×3